=== PATIENT | female | born 1970 | race Caucasian/White ===

== ENCOUNTER 2016-11-05 18:26 | Emergency (ER) | payer OTHER ==
[~2016-11-05] VITALS: Ht 165.1 cm; Wt 89.3 kg
[~2016-11-05 18:26] MED LIST: ONDA4TAB46 PO
[2016-11-05 18:35] VITALS: TEMP 36.7; Ht 165.1 cm; Wt 89.3 kg
[2016-11-05] MEDS ORDERED: ONDANSETRON INJ 2 MG/ML 2 ML VIAL IV STA (19:36)
[2016-11-05] MEDS ORDERED: SODIUM CHLORIDE 0.9% 1000ML 2,000 ML IV STA (19:36)
[2016-11-05 20:20] LABS: BASO % 0.4 %; BASO ABS # 0.04 K/uL (0-0.2); COMPLETE YES; EOS % 4.9 %; IG% 0.2 %; LYMPH % 36.7 %; LYMPH ABS # 3.35 K/uL (1.2-3.4); MEAN CELL VOLUME 91.7 fL (80-100); MEAN CORPUSCULAR HEMOGLOBIN 30.8 pg (25-34); MEAN CORPUSCULAR HGB CONC 33.6 g/dl (32-36); MEAN PLATELET VOLUME 9.5 fL (7.4-10.4); MONO % 5.4 %; NEUT % 52.4 %; PLATELET COUNT 277 K/uL (130-400); RED BLOOD COUNT 4.58 M/uL (4.2-5.4); WHITE BLOOD COUNT 9.13 K/uL (4.8-10.8)
[2016-11-05 20:38] LABS: ALT/SGPT 65 U/L (12-78); BLOOD UREA NITROGEN 11 mg/dl (7-18); BUN/CREATININE RATIO 13.1 (10-20); CALCIUM 9.1 mg/dl (8.5-10.1); CARBON DIOXIDE 28 mmol/L (21-32); CHLORIDE 105 mmol/L (98-107); CREATININE 0.86 mg/dl (0.60-1.20); GLUCOSE 84 mg/dl (70-99); POTASSIUM 3.9 mmol/L (3.5-5.1); SODIUM 142 mmol/L (136-145)
--- NOTE | 2016-11-05 20:39 | DIAGNOSTIC IMAGING REPORT ---
CT HEAD WITHOUT CONTRAST (CT) CLINICAL HISTORY: Syncope with head trauma. Head pain. COMPARISON STUDY: 09/22/2016 TECHNIQUE: Axial CT of the brain is performed from the vertex to the skull base. IV contrast was not administered for this examination. CT DOSE: 537.48 mGy.cm FINDINGS: No intra or extra-axial mass lesions are visualized. There is no CT evidence of acute cortical infarction. There is no evidence of midline shift. There is no acute hemorrhage. No calvarial fractures are visualized. There is no evidence of pathologic ventricular dilatation. There is no evidence of acute sinusitis IMPRESSION: No acute intracranial findings Electronically signed by: Sp García M.D. 11/05/2016 8:37 PM Dictated Date/Time: 11/05/2016 8:36 PM
[2016-11-05 20:43] LABS: ALKALINE PHOSPHATASE 83 U/L (45-117); AST/SGOT 41 U/L (15-37)
--- NOTE | 2016-11-05 20:44 | EMERGENCY ROOM VISIT NOTE ---
History Report prepared by Ashok: Sammi Keys Under the Supervision of: Dr. Joseluis Cortes D.O. First contact with patient: 19:31 Chief Complaint: DIARRHEA Stated Complaint: DIARRHEA 6 DAYS, VOMITING, ABD PAIN Nursing Triage Summary: n/v/d seen here yesterday, they were going to check her for c.diff, but she was unable to give specimen. History of Present Illness The patient is a 46 year old female who presents to the Emergency Room with complaints of constant diarrhea beginning 6 days ago. The patient states that she was seen here last night for similar symptoms and got a CT scan that was normal. She notes that she was not able to give a stool sample at the time to check for C. Diff. Today she notes that she is feeling worsening pain. She is experiencing vomiting, watery diarrhea 15 times since last night, nausea, and abdominal pain. She denies any fever but notes that she is in menopause so she hasn't checked it. She reports that she passed out in the bathroom and may have hit her head once she arrived in the ED. Source of History: patient Onset: yesterday Position: other (global) Symptom Intensity: 15 episodes of diarrhea Timing: constant Associated Symptoms: + abdominal pain, + diarrhea, + nausea, + vomiting, No fevers Review of Systems See HPI for pertinent positives & negatives. A total of 10 systems reviewed and were otherwise negative. Past Medical & Surgical Medical Problems: (1) Adjustment disorder (2) Asthma (3) Chronic Cholecystitis (4) Depression (5) Diverticulosis Colon (W/O Ment Of Hemorrhage) (6) Drug overdose, intentional (7) DWAYNE (generalized anxiety disorder) (8) Gastritis (9) Gastroparesis (10) Generalized Anxiety Dis (11) History of Lyme disease (12) HLD (hyperlipidemia) (13) IBS (irritable bowel syndrome) (14) Irritable Bowel Syndrome (15) Migraine (16) Myalgia and myositis (17) Personality disorder (18) Postconcussion Syndrome (19) Posttraumatic Stress Disorder (20) Suicide attempt by drug ingestion (21) Tobacco abuse Surgical Problems: (1) H/O colonoscopy (2) H/O esophagogastroduodenoscopy (3) H/O tubal ligation (4) H/O unilateral oophorectomy (5) History of partial colectomy (6) Hx of appendectomy (7) Hx of tonsillectomy (8) S/P cholecystectomy (9) S/P MARLON (total abdominal hysterectomy) Family History Diabetes mellitus FATHER FH: heart disease MOTHER BROTHER Social History Smoking Status: Current Every Day Smoker Alcohol Use: none Drug Use: none Marital Status: Housing Status: lives with significant other Occupation Status: unemployed Current/Historical Medications Scheduled Cyclobenzaprine HCl (Cyclobenzaprine HCl), 10 MG PO HS Estradiol (Estradiol), 1 MG PO DAILY Famotidine (Famotidine), 20 MG PO BID Lactobacillus Bifidus ([id number]), 1 CAP PO BID Venlafaxine Hcl (Effexor Extended Rel), 150 MG PO DAILY Venlafaxine Hcl (Venlafaxine Extended Rel), 37.5 MG PO DAILY Scheduled PRN Albuterol Hfa (Ventolin Hfa), 2 PUFFS INH Q4H PRN for Wheezing Clonazepam (Klonopin), 1 MG PO BID PRN for Anxiety Epinephrine (Epipen 2-Cisco), 0.3 MG IM UD PRN for ALLERGIC REACTION Ondansetron Hcl (Zofran), 4 MG PO TID PRN for Nausea Allergies Coded Allergies: Iodinated Diagnostic Agents (Verified Allergy, Intermediate, HIVES, ) Tramadol (Verified Allergy, Intermediate, HIVES, 11/05/16) Penicillins (Verified Allergy, Mild, *, 11/05/16) Moxifloxacin (Verified Allergy, Unknown, UNKNOWN, 11/05/16) Sulfa Antibiotics (Verified Allergy, Unknown, unkn, 11/05/16) as a child Ketorolac Tromethamine (Verified Adverse Reaction, Intermediate, "TEARS STOMACH UP", 11/05/16) Fentanyl (Verified Adverse Reaction, Unknown, cramping and muscle spasms, 11/05/16) Prochlorperazine (Verified Adverse Reaction, Unknown, ANXIETY/JITTERY/ HYPOTENSION, 11/05/16) Physical Exam Vital Signs Date Time Temp Pulse Resp B/P Pulse Ox O2 Delivery O2 Flow Rate FiO2 11/05/16 21:53 87 18 144/98 100 11/05/16 21:12 84 21 171/110 100 Room Air 11/05/16 18:35 36.7 98 18 132/80 98 Room Air Physical Exam GENERAL: Patient is awake, alert, and in no acute distress. Patient is somewhat anxious and uncomfortable. EYES: The conjunctivae are clear. The pupils are round and reactive. EARS, NOSE, MOUTH AND THROAT: The nose is without any evidence of any deformity. Mucous membranes are moist tongue is midline NECK: The neck is nontender and supple. RESPIRATORY: Normal respiratory effort is noted there is no evidence of wheezing rhonchi or rales CARDIOVASCULAR: Regular rate and rhythm noted there no murmurs rubs or gallops normal S1 normal S2 GASTROINTESTINAL: The abdomen is mildly distended but soft. There was diffuse tenderness to palpation but no guarding or rigidity noted. MUSCULOSKELETAL/EXTREMITIES: There is no evidence of gross deformity full range of motion is noted in the hips and shoulders SKIN: There is no obvious evidence of any rash. There are no petechiae, pallor or cyanosis noted. NEUROLOGIC: Patient is awake alert and oriented x3 strength is symmetric patellar reflexes are 2+ bilaterally Medical Decision & Procedures ER Provider Diagnostic Interpretation: X ray results and stated below per my interpretation and radiology interpretation. Other radiology results per my review and radiologist interpretation: ABDOMEN 2VIEW W/PA CHEST RTN FINDINGS: The erect chest reveals no free air. There is no focal pulmonary consolidation. Erect and supine views the abdomen reveal surgical clips in the right upper quadrant consistent with a prior cholecystectomy. There are no abnormal dilated loops of large or small bowel. There are no transition zones to indicate bowel obstruction. Surgical clips are also present within the right mid abdomen. There are pelvic basin calcifications likely representing phleboliths. IMPRESSION: No evidence of bowel obstruction. No evidence of free air. Electronically signed by: Sp García M.D. 11/05/2016 8:58 PM Dictated Date/Time: 11/05/2016 8:[address] HEAD WITHOUT CONTRAST (CT) FINDINGS: No intra or extra-axial mass lesions are visualized. There is no CT evidence of acute cortical infarction. There is no evidence of midline shift. There is no acute hemorrhage. No calvarial fractures are visualized. There is no evidence of pathologic ventricular dilatation. There is no evidence of acute sinusitis IMPRESSION: No acute intracranial findings Electronically signed by: Sp García M.D. 11/05/2016 8:37 PM Dictated Date/Time: 11/05/2016 8:36 PM Laboratory Results 11/05/16 20:10 Red Blood Count 4.58, Mean Corpuscular Volume 91.7, Mean Corpuscular Hemoglobin 30.8, Mean Corpuscular Hemoglobin Concent 33.6, Mean Platelet Volume 9.5, Neutrophils (%) (Auto) 52.4, Lymphocytes (%) (Auto) 36.7, Monocytes (%) (Auto) 5.4, Eosinophils (%) (Auto) 4.9, Basophils (%) (Auto) 0.4, Neutrophils # (Auto) 4.78, Lymphocytes # (Auto) 3.35, Monocytes # (Auto) 0.49, Eosinophils # (Auto) 0.45, Basophils # (Auto) 0.04 11/05/16 20:10 Test 11/05/16 20:10 White Blood Count 9.13 K/uL (4.8-10.8) Red Blood Count 4.58 M/uL (4.2-5.4) Hemoglobin 14.1 g/dL (12.0-16.0) Hematocrit 42.0 % (37-47) Mean Corpuscular Volume 91.7 fL (80-100) Mean Corpuscular Hemoglobin 30.8 pg (25-34) Mean Corpuscular Hemoglobin Concent 33.6 g/dl (32-36) Platelet Count 277 K/uL (130-400) Mean Platelet Volume 9.5 fL (7.4-10.4) Neutrophils (%) (Auto) 52.4 % Lymphocytes (%) (Auto) 36.7 % Monocytes (%) (Auto) 5.4 % Eosinophils (%) (Auto) 4.9 % Basophils (%) (Auto) 0.4 % Neutrophils # (Auto) 4.78 K/uL (1.4-6.5) Lymphocytes # (Auto) 3.35 K/uL (1.2-3.4) Monocytes # (Auto) 0.49 K/uL (0.11-0.59) Eosinophils # (Auto) 0.45 K/uL (0-0.5) Basophils # (Auto) 0.04 K/uL (0-0.2) RDW Standard Deviation 44.2 fL (36.4-46.3) RDW Coefficient of Variation 13.3 % (11.5-14.5) Immature Granulocyte % (Auto) 0.2 % Immature Granulocyte # (Auto) 0.02 K/uL (0.00-0.02) Anion Gap 9.0 mmol/L (3-11) Est Creatinine Clear Calc Drug Dose 92.1 ml/min Estimated GFR () 95.2 Estimated GFR (Non- 82.2 BUN/Creatinine Ratio 13.1 (10-20) Calcium Level 9.1 mg/dl (8.5-10.1) Total Bilirubin 0.2 mg/dl (0.2-1) Direct Bilirubin < 0.1 mg/dl (0-0.2) Aspartate Amino Transf (AST/SGOT) 41 U/L (15-37) Alanine Aminotransferase (ALT/SGPT) 65 U/L (12-78) Alkaline Phosphatase 83 U/L (45-117) Troponin I < 0.015 ng/ml (0-0.045) Total Protein 7.8 gm/dl (6.4-8.2) Albumin 3.9 gm/dl (3.4-5.0) Lipase 160 U/L (73-393) Laboratory results per my review. Medications Administered Medications (Trade) Dose Ordered Sig/Lorna Route Start Time Stop Time Status Last Admin Dose Admin Sodium Chloride (Nss 1000ml) 2,000 ml @ 999 mls/hr Q2H1M STAT IV 11/05/16 19:36 11/05/16 21:36 DC 11/05/16 19:36 999 MLS/HR Ondansetron HCl 4 mg 4 mg NOW STAT IV 11/05/16 19:36 11/05/16 19:38 DC 11/05/16 19:36 4 MG Promethazine HCl/ Sodium Chloride (Phenergan Inj/ Nss 50ml) 51 ml @ 204 mls/hr NOW STAT IV 11/05/16 20:59 11/05/16 21:13 DC 11/05/16 21:08 204 MLS/HR Hydromorphone HCl (Dilaudid Inj) 1 mg NOW STAT IV 11/05/16 21:24 11/05/16 21:25 DC 11/05/16 21:37 1 MG Ondansetron HCl (ZOFRAN ODT 4MG Home Pack) 1 homepack UD ONCE PO 11/05/16 21:30 11/05/16 21:31 DC 11/05/16 21:40 1 HOMEPACK Oxycodone HCl (Roxicodone Immediate Rel 5MG Home Pack) 1 homepack UD ONCE PO 11/05/16 21:30 11/05/16 21:31 DC 11/05/16 21:40 1 HOMEPACK ECG Indication: other (diarrhea) Rate (beats per minute): 85 Rhythm: normal sinus Findings: no ectopy, other (no st segment abnormalities) Comparison ECG Date: 09/24/16 Change: no significant change ED Course 1930: The patient was evaluated in room B6. A complete history and physical examination were performed. 1935: Zofran Inj 4mg IV, NSS 2,000 ml @ 999 mls/hr IV. 2058: Promethazine HCl 25mg/Sodium Chloride 51ml @ 204mls/hr IV. 2123: Dilaudid Inj 1mg IV. 2129: Oxycodone HCl 1 homepack PO, Ondansetron HCl 1 homepack PO. 2155: Upon reevaluation, the patient is hemodynamically stable. I discussed the results and treatment plan with the patient. She verbalized agreement of the treatment plan. The patient was discharged home. Medical Decision Differential diagnosis: Etiologies such as appendicitis, diverticulitis, PUD, biliary pathology, UTI, pancreatitis, obstruction, mesenteric ischemia, aortic pathology, infections, inflammatory bowel disease, renal colic, as well as others were entertained. Nursing notes reviewed. The patient's previous electronic medical records reviewed. The patient is a 46-year-old female who presented to the emergency department for an evaluation of nausea vomiting and diarrhea. The patient has had ongoing symptoms for the last few days. She was seen in our facility yesterday for similar complaints and had continued symptoms. She states that she became very dizzy and passed out in the bathroom. She complained of a headache. I discussed patient's laboratory and radiographic studies with her. She was treated with IV fluids IV pain medicine and IV antiemetics. On subsequent reevaluation she was feeling much better. She was unable to provide us with a stool sample this evening. She was encouraged to follow-up with her primary care physician this week for further evaluation. She was also encouraged to continue all medications as prescribed. She was also encouraged to drink plenty clear liquids and return to the emergency department immediately if symptoms change worsen or the need arises. Impression Primary Impression: Diarrhea Additional Impressions: Nausea & vomiting Abdominal pain, bilateral lower quadrant Scribe Attestation The scribe's documentation has been prepared under my direction and personally reviewed by me in its entirety. I confirm that the note above accurately reflects all work, treatment, procedures, and medical decision making performed by me. Departure Information Dispostion Home / Self-Care Referrals No Doctor, Assigned (PCP) Forms HOME CARE DOCUMENTATION FORM, IMPORTANT VISIT INFORMATION, WORK / SCHOOL INSTRUCTIONS Patient Instructions Diarrhea, My [facility] Additional Instructions Call your primary care physician to schedule a follow-up appointment. Continue all medications as prescribed. Drink plenty clear liquids. Problem Qualifiers
[2016-11-05] MEDS ORDERED: PROMETHAZINE HCL INJ 25 MG in SODIUM CHLORIDE 0.9% 50ML 50 ML IV STA (20:59)
--- NOTE | 2016-11-05 21:00 | DIAGNOSTIC IMAGING REPORT ---
ABDOMEN 2VIEW W/PA CHEST RTN CLINICAL HISTORY: Nausea vomiting and diarrhea of 6 days duration COMPARISON STUDY: 09/24/2016, CT scan dated 11/04/2016 FINDINGS: The erect chest reveals no free air. There is no focal pulmonary consolidation. Erect and supine views the abdomen reveal surgical clips in the right upper quadrant consistent with a prior cholecystectomy. There are no abnormal dilated loops of large or small bowel. There are no transition zones to indicate bowel obstruction. Surgical clips are also present within the right mid abdomen. There are pelvic basin calcifications likely representing phleboliths. IMPRESSION: No evidence of bowel obstruction. No evidence of free air. Electronically signed by: Sp García M.D. 11/05/2016 8:58 PM Dictated Date/Time: 11/05/2016 8:57 PM
[2016-11-05] MEDS ORDERED: HYDROmorphone INJ 1 MG/ML SYR IV STA (21:24)
[2016-11-05] MEDS ORDERED: ONDANSETRON HOME PACK 4MG OD TAB PO ONE (21:30)
[2016-11-05] MEDS ORDERED: OXYCODONE IR HOME PACK PO ONE (21:30)
[2016-11-05 21:53] VITALS: BP 144/98; PULSE 87; O2SAT 100
[2017-01-26] MEDS ORDERED: VENL37.593 PO (06:58)
[2017-01-26] MEDS ORDERED: ESTRD2 PO (15:33)
[2017-01-27] MEDS ORDERED: LPT40 PO (14:19)
[2017-01-27] MEDS ORDERED: ASPEC81 PO (14:19)
== END 2016-11-05 21:53 | disposition home or self-care (01) ==
LOC: C.EDB 19:37
DX: R19.7 Diarrhea, unspecified (principal); R11.2 Nausea with vomiting, unspecified; R10.32 Left lower quadrant pain; R10.31 Right lower quadrant pain; J45.909 Unspecified asthma, uncomplicated; E78.5 Hyperlipidemia, unspecified; F17.200 Nicotine dependence, unspecified, uncomplicated; Z83.3 Family history of diabetes mellitus; Z82.49 Family history of ischemic heart disease and other diseases of the circulatory system; F32.9 Major depressive disorder, single episode, unspecified; F43.10 Post-traumatic stress disorder, unspecified

== ENCOUNTER 2016-11-11 17:27 | Emergency (ER) | payer OTHER ==
[~2016-11-11] VITALS: Ht 165.1 cm; Wt 88.7 kg
[2016-11-11 17:32] VITALS: TEMP 36.4; Ht 165.1 cm; Wt 88.7 kg
[2016-11-11] MEDS ORDERED: HYDROmorphone INJ 1 MG/ML SYR IV STA ×2 (18:03→18:07)
[2016-11-11] MEDS ORDERED: SODIUM CHLORIDE 0.9% 1000ML 1,000 ML IV STA (18:03)
[2016-11-11] MEDS ORDERED: METOCLOPRAMIDE HCL INJ 5 MG/ML 2 ML VIAL IV STA (18:03)
[2016-11-11] MEDS ORDERED: KETOROLAC TROMETHAMINE 30 MG/ML VIAL IV STA (18:03)
[2016-11-11] MEDS ORDERED: ONDANSETRON INJ 2 MG/ML 2 ML VIAL IV STA ×2 (18:03)
--- NOTE | 2016-11-11 18:14 | EMERGENCY ROOM VISIT NOTE ---
History Report prepared by Ashok: Flo Ulloa Under the Supervision of: Dr. Alex Govea M.D. First contact with patient: 17:59 Chief Complaint: GI ASSESSMENT Stated Complaint: VOMIT,DIAHRREA,EXTREME PAIN, 12 DAY (+CDIFF) Nursing Triage Summary: Pt c/o abd pain, n/v/d x12 days "I am positive for cdiff. My Dr told me to come here" History of Present Illness The patient is a 46 year old female who presents to the Emergency Room with complaints of a persistent illness that started around 12 days ago. She complains of persistent nausea, accompanied with episodes of vomiting and diarrhea. The patient also says she has excruciating abdominal pain. She notes that she tested positive for C. difficile yesterday morning. 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 She was put on Flagyl and has been on it for 1 day so far. The patient was just here last week for these symptoms. She has been taking Tylenol and Zofran, but nothing is helping. She is allergic to IV dye and Toradol. The patient has diverticular disease and had a colon resection. Source of History: patient Onset: 12 days ago Position: other (global - illness) Timing: other (persistent) Associated Symptoms: + abdominal pain, + diarrhea, + nausea, + vomiting Note: No other associated symptoms noted. Review of Systems See HPI for pertinent positives & negatives. A total of 10 systems reviewed and were otherwise negative. Past Medical & Surgical Medical Problems: (1) Adjustment disorder (2) Asthma (3) Chronic Cholecystitis (4) Depression (5) Diverticulosis Colon (W/O Ment Of Hemorrhage) (6) Drug overdose, intentional (7) DWAYNE (generalized anxiety disorder) (8) Gastritis (9) Gastroparesis (10) Generalized Anxiety Dis (11) History of Lyme disease (12) HLD (hyperlipidemia) (13) IBS (irritable bowel syndrome) (14) Irritable Bowel Syndrome (15) Migraine (16) Myalgia and myositis (17) Personality disorder (18) Postconcussion Syndrome (19) Posttraumatic Stress Disorder (20) Suicide attempt by drug ingestion (21) Tobacco abuse Surgical Problems: (1) H/O colonoscopy (2) H/O esophagogastroduodenoscopy (3) H/O tubal ligation (4) H/O unilateral oophorectomy (5) History of partial colectomy (6) Hx of appendectomy (7) Hx of tonsillectomy (8) S/P cholecystectomy (9) S/P MARLON (total abdominal hysterectomy) Family History Diabetes mellitus FATHER FH: heart disease MOTHER BROTHER Social History Smoking Status: Current Every Day Smoker Alcohol Use: none Drug Use: none Marital Status: Housing Status: lives with significant other Occupation Status: unemployed Current/Historical Medications Scheduled Cyclobenzaprine HCl (Cyclobenzaprine HCl), 10 MG PO HS Estradiol (Estradiol), 1 MG PO DAILY Famotidine (Famotidine), 20 MG PO BID Lactobacillus Bifidus ([id number]), 1 CAP PO DAILY Metronidazole (Flagyl), 500 MG PO TID Venlafaxine Hcl (Effexor Extended Rel), 150 MG PO DAILY Venlafaxine Hcl (Venlafaxine Extended Rel), 37.5 MG PO DAILY Scheduled PRN Albuterol Hfa (Ventolin Hfa), 2 PUFFS INH Q4H PRN for Wheezing Clonazepam (Klonopin), 1 MG PO BID PRN for Anxiety Epinephrine (Epipen 2-Cisco), 0.3 MG IM UD PRN for ALLERGIC REACTION Ondansetron (Ondansetron HCl), 4 MG PO TID PRN for Nausea Promethazine Hcl (Phenergan Suppository), 25 MG OH Q6H PRN for Nausea Promethazine Hcl (Phenergan), 25 MG PO Q6 hours PRN for nausea Allergies Coded Allergies: Iodinated Diagnostic Agents (Verified Allergy, Intermediate, HIVES, ) Tramadol (Verified Allergy, Intermediate, HIVES, 11/05/16) Penicillins (Verified Allergy, Mild, *, 11/05/16) Moxifloxacin (Verified Allergy, Unknown, UNKNOWN, 11/05/16) Sulfa Antibiotics (Verified Allergy, Unknown, unkn, 11/05/16) as a child Ketorolac Tromethamine (Verified Adverse Reaction, Intermediate, "TEARS STOMACH UP", 11/05/16) Fentanyl (Verified Adverse Reaction, Unknown, cramping and muscle spasms, 11/05/16) Prochlorperazine (Verified Adverse Reaction, Unknown, ANXIETY/JITTERY/ HYPOTENSION, 11/05/16) Physical Exam Vital Signs Date Time Temp Pulse Resp B/P Pulse Ox O2 Delivery O2 Flow Rate FiO2 11/11/16 21:38 95 18 148/96 96 11/11/16 20:35 91 18 147/100 98 Room Air 11/11/16 19:05 82 18 152/99 100 Room Air 11/11/16 17:32 36.4 109 20 140/105 98 Room Air Physical Exam CONSTITUTIONAL: Moderate painful nauseous distress. HEENT: No icterus, moist mucous membranes NECK: No meningismus, trachea is midline. CARDIOVASCULAR: Regular rate, normal perfusion RESPIRATORY: Unlabored breathing. Clear to auscultation. GASTROINTESTINAL: Moderate diffuse abdominal tenderness. GENITOURINARY: No flank tenderness MUSCULOSKELETAL: Full range of motion NEUROLOGIC: No acute gross focal deficits. PSYCHIATRIC: Normal affect SKIN: Normal for ethnicity. Medical Decision & Procedures ER Provider Diagnostic Interpretation: CT results as stated below per my review and radiologist interpretation. CT SCAN OF THE ABDOMEN AND PELVIS WITHOUT CONTRAST CLINICAL HISTORY: Abdominal pain, history of C. difficile. COMPARISON STUDY: 11/04/2016 TECHNIQUE: CT scan of the abdomen and pelvis was performed from the lung bases to the proximal femurs. Images are reviewed in the axial, sagittal, and coronal planes. IV contrast was not administered for this examination. CT DOSE: 595.96 mGy.cm FINDINGS: Lower chest: There are minor right middle lobe atelectatic changes. Liver: The unenhanced liver is normal in size, contour, and attenuation. There is no intrahepatic biliary ductal dilatation. Gallbladder: Surgically absent Spleen: Normal in size and attenuation. Pancreas: Unremarkable. Adrenal glands: Unremarkable. Kidneys: There are punctate nonobstructing renal calculi. There is no hydronephrosis. No ureteral or bladder calculi are visualized. Bowel: There are no transition zones indicate bowel obstruction. By history the appendix is absent. There is no acute diverticulitis. There are postsurgical changes present within the sigmoid. There is no acute diverticulitis. There is no pathologic bowel wall thickening. Peritoneum: There is no intraperitoneal free air or abdominal ascites. Vasculature: The abdominal aorta is normal in course and caliber. Adenopathy: None. Pelvic viscera: The uterus appears surgically absent Skeletal structures: No destructive osseous lesions are seen. IMPRESSION: 1. No acute intra-abdominal or pelvic findings 2. Punctate bilateral renal calculi. 3. No ureteral or bladder calculi identified 4. No acute inflammatory changes. No evidence of pathologic bowel wall thickening. 5. Postsurgical changes within the sigmoid colon Electronically signed by: Sp García M.D. 11/11/2016 8:48 PM Dictated Date/Time: 11/11/2016 8:44 PM Laboratory Results 11/11/16 18:20 Red Blood Count 4.64, Mean Corpuscular Volume 90.1, Mean Corpuscular Hemoglobin 30.2, Mean Corpuscular Hemoglobin Concent 33.5, Mean Platelet Volume 9.5, Neutrophils (%) (Auto) 51.2, Lymphocytes (%) (Auto) 36.5, Monocytes (%) (Auto) 6.4, Eosinophils (%) (Auto) 5.3, Basophils (%) (Auto) 0.4, Neutrophils # (Auto) 5.12, Lymphocytes # (Auto) 3.65, Monocytes # (Auto) 0.64, Eosinophils # (Auto) 0.53, Basophils # (Auto) 0.04 11/11/16 18:20 Test 11/11/16 18:10 11/11/16 18:20 Urine Color YELLOW Urine Appearance CLOUDY (CLEAR) Urine pH 5.5 (4.5-7.5) Urine Specific Girdler 1.000 (1.000-1.030) Urine Protein NEG (NEG) Urine Glucose (UA) NEG (NEG) Urine Ketones NEG (NEG) Urine Occult Blood NEG (NEG) Urine Nitrite NEG (NEG) Urine Bilirubin NEG (NEG) Urine Urobilinogen NEG (NEG) Urine Leukocyte Esterase SMALL (NEG) Urine WBC (Auto) 10-30 /hpf (0-5) Urine RBC (Auto) 0-4 /hpf (0-4) Urine Hyaline Casts (Auto) 1-5 /lpf (0-5) Urine Epithelial Cells (Auto) >30 /lpf (0-5) Urine Bacteria (Auto) 2+ (NEG) Urine Opiates Screen NEG (NEG) Urine Methadone, Qualitative NEG (NEG) Urine Barbiturates NEG (NEG) Urine Phencyclidine (PCP) Level NEG (NEG) Ur Amphetamine/Methamphetamine NEG (NEG) MDMA (Ecstasy) Screen NEG (NEG) Urine Benzodiazepines Screen NEG (NEG) Urine Cocaine Metabolite NEG (NEG) Urine Marijuana (THC) NEG (NEG) White Blood Count 10.00 K/uL (4.8-10.8) Red Blood Count 4.64 M/uL (4.2-5.4) Hemoglobin 14.0 g/dL (12.0-16.0) Hematocrit 41.8 % (37-47) Mean Corpuscular Volume 90.1 fL (80-100) Mean Corpuscular Hemoglobin 30.2 pg (25-34) Mean Corpuscular Hemoglobin Concent 33.5 g/dl (32-36) Platelet Count 274 K/uL (130-400) Mean Platelet Volume 9.5 fL (7.4-10.4) Neutrophils (%) (Auto) 51.2 % Lymphocytes (%) (Auto) 36.5 % Monocytes (%) (Auto) 6.4 % Eosinophils (%) (Auto) 5.3 % Basophils (%) (Auto) 0.4 % Neutrophils # (Auto) 5.12 K/uL (1.4-6.5) Lymphocytes # (Auto) 3.65 K/uL (1.2-3.4) Monocytes # (Auto) 0.64 K/uL (0.11-0.59) Eosinophils # (Auto) 0.53 K/uL (0-0.5) Basophils # (Auto) 0.04 K/uL (0-0.2) RDW Standard Deviation 43.5 fL (36.4-46.3) RDW Coefficient of Variation 13.2 % (11.5-14.5) Immature Granulocyte % (Auto) 0.2 % Immature Granulocyte # (Auto) 0.02 K/uL (0.00-0.02) Anion Gap 9.0 mmol/L (3-11) Est Creatinine Clear Calc Drug Dose 95.1 ml/min Estimated GFR () 99.4 Estimated GFR (Non- 85.8 BUN/Creatinine Ratio 6.9 (10-20) Calcium Level 9.1 mg/dl (8.5-10.1) Total Bilirubin 0.1 mg/dl (0.2-1) Direct Bilirubin < 0.1 mg/dl (0-0.2) Aspartate Amino Transf (AST/SGOT) 18 U/L (15-37) Alanine Aminotransferase (ALT/SGPT) 34 U/L (12-78) Alkaline Phosphatase 81 U/L (45-117) Total Protein 7.5 gm/dl (6.4-8.2) Albumin 3.8 gm/dl (3.4-5.0) Lipase 185 U/L (73-393) Labs reviewed by ED physician. Medications Administered Medications (Trade) Dose Ordered Sig/Lorna Route Start Time Stop Time Status Last Admin Dose Admin Ondansetron HCl 4 mg 4 mg NOW STAT IV 11/11/16 18:03 11/11/16 18:06 DC 11/11/16 18:32 4 MG Sodium Chloride (Nss 1000ml) 1,000 ml @ 0 mls/hr Q0M STAT IV 11/11/16 18:03 11/11/16 18:06 DC 11/11/16 18:32 999 MLS/HR Hydromorphone HCl (Dilaudid Inj) 1 mg PRN STAT IV 11/11/16 18:03 11/11/16 18:06 DC 11/11/16 18:33 1 MG Metoclopramide HCl (Reglan Inj) 10 mg NOW STAT IV 11/11/16 18:03 11/11/16 18:06 DC 11/11/16 18:33 10 MG Ondansetron HCl (Zofran Inj) 4 mg PRN STAT IV 11/11/16 18:03 11/11/16 18:06 DC 11/11/16 20:50 4 MG Hydromorphone HCl (Dilaudid Inj) 1 mg PRN STAT IV 11/11/16 18:07 11/11/16 18:09 DC 11/11/16 19:36 1 MG Promethazine HCl (Phenergan 25MG Home Pack) 1 homepack UD ONCE PO 11/11/16 21:30 11/11/16 21:31 DC 11/11/16 21:35 1 HOMEPACK ED Course 1800: Past medical records reviewed. The patient was evaluated in room B2. A complete history and physical examination was performed. 1802: Ordered Zofran Inj 4 mg IV PRN, Reglan Inj 10 mg IV, Dilaudid Inj 1 mg IV PRN, NSS 1000 ml @ 0 mls/hr Wide Open IV, Zofran Inj 4 mg IV. 2125: I reevaluated the patient and she is resting comfortably. The patient verbally expressed agreement and understanding of the treatment plan. The patient will be discharged. Medical Decision Differential diagnoses include: complications of C difficile, viral syndrome, cholecystitis. 46-year-old presented to the emergency room for vomiting and diarrhea with crampy abdominal pain over the last day or so. She is noted to have a history of diarrhea and similar complaints over the last month or 2 with positive C. difficile testing as recently as yesterday. She is on Flagyl presently. Abdomen mildly diffusely tender. Despite recent episodes of diarrhea she was unable to produce a stool sample here in the emergency department for additional C. difficile testing. CT examination labs otherwise unremarkable. Phenergan suppositories and tablets written at patient request and she understands to follow-up with infectious disease for further evaluation and discussion of Flagyl therapy duration. Impression Primary Impression: Abdominal pain Additional Impression: Diarrhea Scribe Attestation The scribe's documentation has been prepared under my direction and personally reviewed by me in its entirety. I confirm that the note above accurately reflects all work, treatment, procedures, and medical decision making performed by me. Departure Information Dispostion Home / Self-Care Prescriptions Promethazine Hcl (PHENERGAN) 25 Mg/Ml Inj 25 MG PO Q6 hours Y for nausea, #20 TABS Prov: Alex Govea MD 11/11/16 Promethazine Hcl (PHENERGAN SUPPOSITORY) 25 Mg Supp 25 MG OH Q6H Y for Nausea, #20 SUPP Prov: Alex Govea MD 11/11/16 Referrals No Doctor, Assigned (PCP) Holland Naik M.D. Forms HOME CARE DOCUMENTATION FORM, IMPORTANT VISIT INFORMATION Patient Instructions Abdominal Pain - [facility], [facility] Problem Qualifiers
[2016-11-11 18:30] LABS: BASO % 0.4 %; BASO ABS # 0.04 K/uL (0-0.2); COMPLETE YES; EOS % 5.3 %; HEMATOCRIT 41.8 % (37-47); IG% 0.2 %; LYMPH % 36.5 %; LYMPH ABS # 3.65 K/uL (1.2-3.4); MEAN CELL VOLUME 90.1 fL (80-100); MEAN CORPUSCULAR HEMOGLOBIN 30.2 pg (25-34); MEAN CORPUSCULAR HGB CONC 33.5 g/dl (32-36); MEAN PLATELET VOLUME 9.5 fL (7.4-10.4); MONO % 6.4 %; NEUT % 51.2 %; PLATELET COUNT 274 K/uL (130-400); RED BLOOD COUNT 4.64 M/uL (4.2-5.4)
[2016-11-11] MEDS ORDERED: METR-163 PO (18:34)
[2016-11-11 18:56] LABS: URINE APPEARANCE CLOUDY (CLEAR); URINE BILIRUBIN NEG (NEG); URINE COLOR YELLOW; URINE EPITHELIAL CELL AUTO >30 /lpf (0-5); URINE NITRITE NEG (NEG); URINE PH 5.5 (4.5-7.5); UROBILINOGEN NEG (NEG); ZZUR CULT IF INDIC CLEAN CATCH YES
[2016-11-11 18:57] LABS: MANUAL MICROSCOPIC REQUIRED? NO; REVIEW REQ? NO
[2016-11-11 19:00] LABS: ALT/SGPT 34 U/L (12-78); BLOOD UREA NITROGEN 6 mg/dl (7-18); BUN/CREATININE RATIO 6.9 (10-20); CALCIUM 9.1 mg/dl (8.5-10.1); CARBON DIOXIDE 26 mmol/L (21-32); CHLORIDE 106 mmol/L (98-107); CREATININE 0.83 mg/dl (0.60-1.20); GLUCOSE 84 mg/dl (70-99); POTASSIUM 3.8 mmol/L (3.5-5.1); SODIUM 141 mmol/L (136-145)
[2016-11-11 19:03] LABS: ALKALINE PHOSPHATASE 81 U/L (45-117); AST/SGOT 18 U/L (15-37)
[2016-11-11 19:25] LABS: BENZODIAZEPINE, URINE NEG (NEG); COCAINE,URINE NEG (NEG); PHENCYCLIDINE, URINE NEG (NEG)
[2016-11-11] MEDS ORDERED: LACTCAP PO (20:09)
[2016-11-11] MEDS ORDERED: ONDANSETRON INJ 2 MG/ML 2 ML VIAL ONE (20:46)
--- NOTE | 2016-11-11 20:50 | DIAGNOSTIC IMAGING REPORT ---
CT SCAN OF THE ABDOMEN AND PELVIS WITHOUT CONTRAST CLINICAL HISTORY: Abdominal pain, history of C. difficile. COMPARISON STUDY: 11/04/2016 TECHNIQUE: CT scan of the abdomen and pelvis was performed from the lung bases to the proximal femurs. Images are reviewed in the axial, sagittal, and coronal planes. IV contrast was not administered for this examination. CT DOSE: 595.96 mGy.cm FINDINGS: Lower chest: There are minor right middle lobe atelectatic changes. Liver: The unenhanced liver is normal in size, contour, and attenuation. There is no intrahepatic biliary ductal dilatation. Gallbladder: Surgically absent Spleen: Normal in size and attenuation. Pancreas: Unremarkable. Adrenal glands: Unremarkable. Kidneys: There are punctate nonobstructing renal calculi. There is no hydronephrosis. No ureteral or bladder calculi are visualized. Bowel: There are no transition zones indicate bowel obstruction. By history the appendix is absent. There is no acute diverticulitis. There are postsurgical changes present within the sigmoid. There is no acute diverticulitis. There is no pathologic bowel wall thickening. Peritoneum: There is no intraperitoneal free air or abdominal ascites. Vasculature: The abdominal aorta is normal in course and caliber. Adenopathy: None. Pelvic viscera: The uterus appears surgically absent Skeletal structures: No destructive osseous lesions are seen. IMPRESSION: 1. No acute intra-abdominal or pelvic findings 2. Punctate bilateral renal calculi. 3. No ureteral or bladder calculi identified 4. No acute inflammatory changes. No evidence of pathologic bowel wall thickening. 5. Postsurgical changes within the sigmoid colon Electronically signed by: Sp García M.D. 11/11/2016 8:48 PM Dictated Date/Time: 11/11/2016 8:44 PM
[2016-11-11] MEDS ORDERED: PROM25SU28 PR (21:23)
[2016-11-11] MEDS ORDERED: PROM25IN13 PO (21:24)
[2016-11-11] MEDS ORDERED: PHENERGAN 25MG HOMEPACK PO ONE (21:30)
[2016-11-11 21:38] VITALS: BP 148/96; PULSE 95; O2SAT 96
[2017-01-26] MEDS ORDERED: VENL37.593 PO (06:58)
[2017-01-26] MEDS ORDERED: ESTRD2 PO (15:33)
[2017-01-27] MEDS ORDERED: LPT40 PO (14:19)
[2017-01-27] MEDS ORDERED: ASPEC81 PO (14:19)
== END 2016-11-11 21:38 | disposition home or self-care (01) ==
LOC: C.EDB 17:29
DX: R10.9 Unspecified abdominal pain (principal); R19.7 Diarrhea, unspecified; J45.909 Unspecified asthma, uncomplicated; F17.200 Nicotine dependence, unspecified, uncomplicated; Z98.890 Other specified postprocedural states; Z90.89 Acquired absence of other organs; Z90.49 Acquired absence of other specified parts of digestive tract; Z83.3 Family history of diabetes mellitus; Z82.49 Family history of ischemic heart disease and other diseases of the circulatory system; Z88.0 Allergy status to penicillin; Z88.2 Allergy status to sulfonamides

== ENCOUNTER 2016-12-01 14:41 | Emergency (ER) | payer OTHER ==
[~2016-12-01] VITALS: Ht 165.1 cm; Wt 90.8 kg
[~2016-12-01 14:41] MED LIST changes: +LACTCAP PO; +METR-163 PO; -ONDA4TAB46 PO; +PROM25IN13 PO; +PROM25SU28 PR
[2016-12-01 14:54] VITALS: TEMP 37; Ht 165.1 cm; Wt 90.8 kg
[2016-12-01] MEDS ORDERED: SODIUM CHLORIDE 0.9% 1000ML 1,000 ML IV STA (15:39)
[2016-12-01] MEDS ORDERED: DICYCLOMINE HCL 10 MG/ML 2 ML AMP IM STA (15:39)
[2016-12-01] MEDS ORDERED: PROMETHAZINE HCL INJ 25 MG in SODIUM CHLORIDE 0.9% 50ML 50 ML IV STA (15:39)
[2016-12-01] MEDS ORDERED: DiphenhydrAMINE HCL 50 MG/ML VIAL IV STA (15:39)
--- NOTE | 2016-12-01 15:40 | EMERGENCY ROOM VISIT NOTE ---
History Report prepared by Ashok: Kelly Cornejo Under the Supervision of: Dr. Guy Vargas M.D. First contact with patient: 15:19 Chief Complaint: ABDOMINAL PAIN Stated Complaint: SEVERE ABD. PAIN, VOMITING, DIARRHEA History of Present Illness The patient is a 46 year old female who presents to the Emergency Room with complaints of persistent lower abdominal pain over the past 3 days. She also complains of lightheadedness, headache, vomiting, and diarrhea. She notes that she has an episode of diarrhea every couple of hours. Her headache is not the worst headache of her life. She has had similar headaches before. She does note some neck pain which she does not usually get with a headache. She has colon issues and has a history of a colon resection. She follows up with a learning facilitator in [place] but has not seen them in a while at this point. She has a history of multiple instances of C. diff and has followed with Dr. Lester of Infectious Disease. The patient was on Vancomycin in September and was started on Flagyl last month. She finished the Flagyl in the past week or two. The patient states that her current symptoms feel similar to previous episodes of C. diff. The patient was admitted to the hospital in September and fired the hospitalist seeing her because she was not given narcotics. She has had multiple drug overdoses in the past. Her family is concerned that the patient is exhibiting drug seeking behavior. 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 Source of History: patient Onset: 3 days ago Position: abdomen (lower) Timing: other (persistent) Associated Symptoms: + diarrhea, + headache, + neck pain, + vomiting Note: Other symptoms: lightheadedness Review of Systems See HPI for pertinent positives & negatives. A total of 10 systems reviewed and were otherwise negative. Past Medical & Surgical Medical Problems: (1) Adjustment disorder (2) Asthma (3) Chronic Cholecystitis (4) Depression (5) Diverticulosis Colon (W/O Ment Of Hemorrhage) (6) Drug overdose, intentional (7) DWAYNE (generalized anxiety disorder) (8) Gastritis (9) Gastroparesis (10) Generalized Anxiety Dis (11) History of Lyme disease (12) HLD (hyperlipidemia) (13) IBS (irritable bowel syndrome) (14) Irritable Bowel Syndrome (15) Migraine (16) Myalgia and myositis (17) Personality disorder (18) Postconcussion Syndrome (19) Posttraumatic Stress Disorder (20) Suicide attempt by drug ingestion (21) Tobacco abuse Surgical Problems: (1) H/O colonoscopy (2) H/O esophagogastroduodenoscopy (3) H/O tubal ligation (4) H/O unilateral oophorectomy (5) History of partial colectomy (6) Hx of appendectomy (7) Hx of tonsillectomy (8) S/P cholecystectomy (9) S/P MARLON (total abdominal hysterectomy) Family History Diabetes mellitus FATHER FH: heart disease MOTHER BROTHER Social History Smoking Status: Current Every Day Smoker Alcohol Use: none Drug Use: none Marital Status: Housing Status: lives with significant other Occupation Status: unemployed Current/Historical Medications Scheduled Cyclobenzaprine HCl (Cyclobenzaprine HCl), 10 MG PO HS Estradiol (Estradiol), 1 MG PO DAILY Famotidine (Famotidine), 20 MG PO BID Lactobacillus Bifidus ([id number]), 1 CAP PO DAILY Metronidazole (Flagyl), 500 MG PO TID Venlafaxine Hcl (Effexor Extended Rel), 150 MG PO DAILY Venlafaxine Hcl (Venlafaxine Extended Rel), 37.5 MG PO DAILY Scheduled PRN Albuterol Hfa (Ventolin Hfa), 2 PUFFS INH Q4H PRN for Wheezing Clonazepam (Klonopin), 1 MG PO BID PRN for Anxiety Epinephrine (Epipen 2-Cisco), 0.3 MG IM UD PRN for ALLERGIC REACTION Ondansetron (Ondansetron HCl), 4 MG PO TID PRN for Nausea Promethazine Hcl (Phenergan Suppository), 25 MG MT Q6H PRN for Nausea Promethazine Hcl (Phenergan), 25 MG PO Q6 hours PRN for nausea Promethazine Hcl (Phenergan Suppository), 25 MG MT Q6H PRN for Nausea Allergies Coded Allergies: Iodinated Diagnostic Agents (Verified Allergy, Intermediate, HIVES, 12/01/16 ) Tramadol (Verified Allergy, Intermediate, HIVES, 12/01/16) Penicillins (Verified Allergy, Mild, *, 12/01/16) Moxifloxacin (Verified Allergy, Unknown, UNKNOWN, 12/01/16) Sulfa Antibiotics (Verified Allergy, Unknown, unkn, 12/01/16) as a child Ketorolac Tromethamine (Verified Adverse Reaction, Intermediate, "TEARS STOMACH UP", 12/01/16) Fentanyl (Verified Adverse Reaction, Unknown, cramping and muscle spasms, 12/01/16) Prochlorperazine (Verified Adverse Reaction, Unknown, ANXIETY/JITTERY/ HYPOTENSION, 12/01/16) Physical Exam Vital Signs Date Time Temp Pulse Resp B/P Pulse Ox O2 Delivery O2 Flow Rate FiO2 12/01/16 18:30 87 16 148/86 93 12/01/16 17:47 82 16 129/88 98 Room Air 12/01/16 16:07 85 12/01/16 15:59 92 15 143/104 98 Room Air 12/01/16 14:54 37.0 108 20 216/173 99 Room Air Physical Exam GENERAL: Patient is a healthy-appearing well-nourished 46 year old female HEAD: Normocephalic atraumatic EYES: Ocular movements intact pupils equal and react to light OROPHARYNX mucous membranes are moist no exudates present no erythema or edema present NECK: Supple no nuchal rigidity CHEST: Good equal expansion LUNGS: Clear and equal to auscultation CARDIAC: Normal S1 and S2 ABDOMEN: Soft nontender no guarding BACK: No CVA tenderness EXTREMITIES: No pain upon palpation normal muscle strength in all groups no clubbing cyanosis or edema NEURO: Patient is following commands is answering questions appropriately. Alert and oriented x3 Cranial Nerves 2-12 grossly intact Medical Decision & Procedures ER Provider Diagnostic Interpretation: X-ray results as stated below per interpretation by me and the radiologist: PA CHEST WITH ABDOMINAL SERIES CLINICAL HISTORY: Generalized abdominal pain. FINDINGS: A PA chest radiograph is compared to study dated 11/05/2016. The cardiomediastinal silhouette is unremarkable. The lungs and pleural spaces are clear. No pneumothorax is seen. The bony thorax is grossly intact. Supine and erect abdominal radiographs are correlated with prior abdominal CT scans, most recently dated 11/11/2016. There is a nonobstructed abdominal bowel gas pattern. No evidence of intraperitoneal free air is seen. There is mild to moderate colonic fecal retention. Cholecystectomy clips are identified in the right upper quadrant. Surgical clips are present in the right lower quadrant and suture material is seen in the pelvis. Calcified phleboliths are again seen in the pelvis. The lumbosacral spine and bony pelvis appear intact. IMPRESSION: 1. No active disease in the chest. 2. Nonobstructed abdominal bowel gas pattern. Electronically signed by: Conrad Carbajal M.D. 12/01/2016 4:41 PM Dictated Date/Time: 12/01/2016 4:39 PM Laboratory Results 12/01/16 16:00 Red Blood Count 4.84, Mean Corpuscular Volume 90.7, Mean Corpuscular Hemoglobin 30.4, Mean Corpuscular Hemoglobin Concent 33.5, Mean Platelet Volume 9.6, Neutrophils (%) (Auto) 49.0, Lymphocytes (%) (Auto) 37.2, Monocytes (%) (Auto) 5.7, Eosinophils (%) (Auto) 7.2, Basophils (%) (Auto) 0.6, Neutrophils # (Auto) 3.87, Lymphocytes # (Auto) 2.94, Monocytes # (Auto) 0.45, Eosinophils # (Auto) 0.57, Basophils # (Auto) 0.05 12/01/16 16:00 Test 12/01/16 15:50 12/01/16 16:00 Urine Color YELLOW Urine Appearance CLEAR (CLEAR) Urine pH 6.0 (4.5-7.5) Urine Specific [place] 1.007 (1.000-1.030) Urine Protein NEG (NEG) Urine Glucose (UA) NEG (NEG) Urine Ketones NEG (NEG) Urine Occult Blood NEG (NEG) Urine Nitrite NEG (NEG) Urine Bilirubin NEG (NEG) Urine Urobilinogen NEG (NEG) Urine Leukocyte Esterase NEG (NEG) Urine Opiates Screen NEG (NEG) Urine Methadone, Qualitative NEG (NEG) Urine Barbiturates NEG (NEG) Urine Phencyclidine (PCP) Level NEG (NEG) Ur Amphetamine/Methamphetamine NEG (NEG) MDMA (Ecstasy) Screen NEG (NEG) Urine Benzodiazepines Screen NEG (NEG) Urine Cocaine Metabolite NEG (NEG) Urine Marijuana (THC) NEG (NEG) White Blood Count 7.90 K/uL (4.8-10.8) Red Blood Count 4.84 M/uL (4.2-5.4) Hemoglobin 14.7 g/dL (12.0-16.0) Hematocrit 43.9 % (37-47) Mean Corpuscular Volume 90.7 fL (80-100) Mean Corpuscular Hemoglobin 30.4 pg (25-34) Mean Corpuscular Hemoglobin Concent 33.5 g/dl (32-36) Platelet Count 270 K/uL (130-400) Mean Platelet Volume 9.6 fL (7.4-10.4) Neutrophils (%) (Auto) 49.0 % Lymphocytes (%) (Auto) 37.2 % Monocytes (%) (Auto) 5.7 % Eosinophils (%) (Auto) 7.2 % Basophils (%) (Auto) 0.6 % Neutrophils # (Auto) 3.87 K/uL (1.4-6.5) Lymphocytes # (Auto) 2.94 K/uL (1.2-3.4) Monocytes # (Auto) 0.45 K/uL (0.11-0.59) Eosinophils # (Auto) 0.57 K/uL (0-0.5) Basophils # (Auto) 0.05 K/uL (0-0.2) RDW Standard Deviation 43.5 fL (36.4-46.3) RDW Coefficient of Variation 13.1 % (11.5-14.5) Immature Granulocyte % (Auto) 0.3 % Immature Granulocyte # (Auto) 0.02 K/uL (0.00-0.02) Anion Gap 8.0 mmol/L (3-11) Est Creatinine Clear Calc Drug Dose 92.9 ml/min Estimated GFR () 95.2 Estimated GFR (Non- 82.2 BUN/Creatinine Ratio 12.4 (10-20) Calcium Level 9.3 mg/dl (8.5-10.1) Total Bilirubin 0.2 mg/dl (0.2-1) Direct Bilirubin < 0.1 mg/dl (0-0.2) Aspartate Amino Transf (AST/SGOT) 18 U/L (15-37) Alanine Aminotransferase (ALT/SGPT) 33 U/L (12-78) Alkaline Phosphatase 78 U/L (45-117) Total Protein 8.4 gm/dl (6.4-8.2) Albumin 4.0 gm/dl (3.4-5.0) Lipase 149 U/L (73-393) Labs reviewed by ED physician. Medications Administered Medications (Trade) Dose Ordered Sig/Lorna Route Start Time Stop Time Status Last Admin Dose Admin Sodium Chloride 1,000 ml @ 999 mls/hr Q1H1M STAT IV 12/01/16 15:39 12/01/16 16:39 DC 12/01/16 16:11 999 MLS/HR Promethazine HCl/ Sodium Chloride (Phenergan Inj/ Nss 50ml) 51 ml @ 204 mls/hr NOW STAT IV 12/01/16 15:39 12/01/16 15:53 DC 12/01/16 16:10 204 MLS/HR Dicyclomine HCl (Bentyl Inj) 20 mg NOW STAT IM 12/01/16 15:39 12/01/16 15:42 DC 12/01/16 16:10 20 MG Diphenhydramine HCl (Benadryl Inj) 50 mg NOW STAT IV 12/01/16 15:39 12/01/16 15:42 DC 12/01/16 16:10 50 MG Ondansetron HCl (Zofran Inj) 4 mg NOW STAT IV 12/01/16 17:01 12/01/16 17:03 DC 12/01/16 17:42 4 MG Famotidine (Pepcid Tab) 20 mg NOW STAT PO 12/01/16 17:01 12/01/16 17:03 DC 12/01/16 17:42 20 MG Sucralfate (Carafate Tab) 1 gm NOW STAT PO 12/01/16 17:01 12/01/16 17:04 DC 12/01/16 18:01 1 GM Lidocaine HCl (Viscous Lidocaine 2% Soln) 20 ml STK-MED ONCE .ROUTE 12/01/16 17:32 12/01/16 17:34 DC 12/01/16 17:40 20 ML Al Hydroxide/Mg Hydroxide (Maalox Susp) 30 ml STK-MED ONCE .ROUTE 12/01/16 17:32 12/01/16 17:34 DC 12/01/16 17:39 30 ML ED Course 1532: Past medical records reviewed. The patient was evaluated in room C5. A complete history and physical examination was performed. 1539: Ordered Benadryl Inj 50 mg IV, Bentyl Inj 20 mg IM, Promethazine HCl 25 mg /NSS 51 ml @ 204 mls/hr IV, NSS 1000 ml @ 999 mls/hr IV. 1701: Ordered Sucralfate 1 gm PO, Pepcid Tab 20 mg PO, GI Cocktail 24 ml PO. 1720: I performed a repeat examination of the patients abdomen. Exam was normal. 1800: Upon reexamination the patient is sleeping comfortably in bed. She could not produce a stool sample while in the ED. Another repeat abdominal examination was normal. I discussed results and treatment plan with the patient. She verbalizes agreement and understanding. The patient is ready for discharge. Medical Decision Differential diagnosis: Etiologies such as appendicitis, diverticulitis, PUD, biliary pathology, UTI, pancreatitis, obstruction, mesenteric ischemia, aortic pathology, infections, inflammatory bowel disease, renal colic, as well as others were entertained. This is a 46-year-old female who presents emergency department complaining of diarrhea as well as suprapubic abdominal pain. The patient was able to provide a urine and this is not show any evidence of infection. A quick review of the chart shows that the patient was recently admitted here in September for an overdose. At that time the patient fired her hospitalist as it was thought that she was opiate seeking. In addition the patient states she fired her pain management doctor in April. I will note that the patient has been here multiple times this month. She is also had multiple CAT scans. Based on this as well as the multiple serial abdominal examinations were performed on the patient in the emergency department and was felt that due to radiation exposure a CAT scan is not going to tell us much more about the patient's condition. In addition the patient has a normal white blood cell count, renal profile liver profile as well as lipase. I feel based on the fact that the this patient has had multiple drug overdoses that she should be placed on our no narcotics list.. I stressed to the patient that she needs to be followed up with infectious disease for this recurrent diarrhea. I will also note that the patient was observed in the emergency department for a total of 5 hours and at no point during a 5 hours was the patient able to provide a stool sample. I believe it is dangerous to give this patient narcotics as this may exacerbate C. difficile if this is indeed what the patient has. For this reason the patient was given normal saline bolus, Phenergan, Bentyl. Repeat examination revealed improvement patient's symptoms. The patient was also given a GI cocktail, Pepcid and Carafate. The patient was pain-free at the time of discharge. The patient was written a prescription to provide a stool sample. In addition I also recommended that the patient follow-up with Dr. Lester's office as well as pain management. [place] Drug Monitoring Program Search Results: patient reviewed within database, see additional documentation Drug Monitoring Findings: 60 clonazepam filled in the past month Impression Primary Impression: Acute gastroenteritis Scribe Attestation The scribe's documentation has been prepared under my direction and personally reviewed by me in its entirety. I confirm that the note above accurately reflects all work, treatment, procedures, and medical decision making performed by me. Departure Information Dispostion Home / Self-Care Prescriptions Promethazine Hcl (PHENERGAN SUPPOSITORY) 25 Mg Supp 25 MG MT Q6H Y for Nausea, #10 SUPP Prov: Guy Vargas MD 12/01/16 Referrals No Doctor, Assigned (PCP) Patient Instructions ED Gastroenteritis Report Pend, My [facility] Additional Instructions Need follow up with Dr Lester and Dr Okeefe's office Culture results are usually available in approx 48 hours You have been examined and treated today on an emergency basis only. This is not a substitute for, or an effort to provide, complete comprehensive medical care. It is impossible to recognize and treat all injuries or illnesses in a single emergency department visit. It is therefore important that you follow up closely with Dr Dawson. Call as soon as possible for an appointment. Thank you for your time and consideration. I look forward to speaking with you again soon. Please don't hesitate to call us if you have any questions.
[2016-12-01 16:17] LABS: URINE APPEARANCE CLEAR (CLEAR); URINE BILIRUBIN NEG (NEG); URINE COLOR YELLOW; URINE NITRITE NEG (NEG); URINE SPECIFIC GRAVITY 1.007 (1.000-1.030); UROBILINOGEN NEG (NEG)
[2016-12-01 16:18] LABS: BASO % 0.6 %; BASO ABS # 0.05 K/uL (0-0.2); COMPLETE YES; EOS % 7.2 %; HEMATOCRIT 43.9 % (37-47); IG% 0.3 %; LYMPH % 37.2 %; LYMPH ABS # 2.94 K/uL (1.2-3.4); MEAN CELL VOLUME 90.7 fL (80-100); MEAN CORPUSCULAR HEMOGLOBIN 30.4 pg (25-34); MEAN CORPUSCULAR HGB CONC 33.5 g/dl (32-36); MEAN PLATELET VOLUME 9.6 fL (7.4-10.4); MONO % 5.7 %; PLATELET COUNT 270 K/uL (130-400); RED BLOOD COUNT 4.84 M/uL (4.2-5.4)
[2016-12-01 16:18] LABS: MANUAL MICROSCOPIC REQUIRED? NO; REVIEW REQ? NO
[2016-12-01 16:36] LABS: ALT/SGPT 33 U/L (12-78); BLOOD UREA NITROGEN 11 mg/dl (7-18); BUN/CREATININE RATIO 12.4 (10-20); CALCIUM 9.3 mg/dl (8.5-10.1); CARBON DIOXIDE 28 mmol/L (21-32); CHLORIDE 104 mmol/L (98-107); CREATININE 0.86 mg/dl (0.60-1.20); GLUCOSE 81 mg/dl (70-99); POTASSIUM 4.3 mmol/L (3.5-5.1); SODIUM 140 mmol/L (136-145)
[2016-12-01 16:39] LABS: ALKALINE PHOSPHATASE 78 U/L (45-117); AST/SGOT 18 U/L (15-37)
--- NOTE | 2016-12-01 16:42 | DIAGNOSTIC IMAGING REPORT ---
PA CHEST WITH ABDOMINAL SERIES CLINICAL HISTORY: Generalized abdominal pain. FINDINGS: A PA chest radiograph is compared to study dated 11/05/2016. The cardiomediastinal silhouette is unremarkable. The lungs and pleural spaces are clear. No pneumothorax is seen. The bony thorax is grossly intact. Supine and erect abdominal radiographs are correlated with prior abdominal CT scans, most recently dated 11/11/2016. There is a nonobstructed abdominal bowel gas pattern. No evidence of intraperitoneal free air is seen. There is mild to moderate colonic fecal retention. Cholecystectomy clips are identified in the right upper quadrant. Surgical clips are present in the right lower quadrant and suture material is seen in the pelvis. Calcified phleboliths are again seen in the pelvis. The lumbosacral spine and bony pelvis appear intact. IMPRESSION: 1. No active disease in the chest. 2. Nonobstructed abdominal bowel gas pattern. Electronically signed by: Conrad Carbajal M.D. 12/01/2016 4:41 PM Dictated Date/Time: 12/01/2016 4:39 PM
[2016-12-01] MEDS ORDERED: FAMOTIDINE 20 MG TAB PO STA (17:01)
[2016-12-01] MEDS ORDERED: GI COCKTAIL PO STA (17:01)
[2016-12-01] MEDS ORDERED: SUCRALFATE 1 GM TAB PO STA (17:01)
[2016-12-01] MEDS ORDERED: ONDANSETRON INJ 2 MG/ML 2 ML VIAL IV STA (17:01)
[2016-12-01] MEDS ORDERED: LIDOCAINE HCL 2% VISC SOLN 20 ML UDC ONE (17:32)
[2016-12-01] MEDS ORDERED: ALUMINUM/MAGNESIUM SUSP 30 ML UDC ONE (17:32)
[2016-12-01 17:36] LABS: BENZODIAZEPINE, URINE NEG (NEG); COCAINE,URINE NEG (NEG); PHENCYCLIDINE, URINE NEG (NEG)
[2016-12-01] MEDS ORDERED: PROM25SU28 PR (18:03)
[2016-12-01 18:30] VITALS: BP 148/86; PULSE 87; O2SAT 93
[2017-01-26] MEDS ORDERED: VENL37.593 PO (06:58)
[2017-01-26] MEDS ORDERED: ESTRD2 PO (15:33)
[2017-01-27] MEDS ORDERED: ASPEC81 PO (14:19)
[2017-01-27] MEDS ORDERED: LPT40 PO (14:19)
== END 2016-12-01 18:30 | disposition home or self-care (01) ==
LOC: C.EDB 14:44 → C.EDC 18:30
DX: K52.9 Noninfective gastroenteritis and colitis, unspecified (principal); E78.5 Hyperlipidemia, unspecified; F41.1 Generalized anxiety disorder; F32.9 Major depressive disorder, single episode, unspecified; J45.909 Unspecified asthma, uncomplicated; K58.9 Irritable bowel syndrome, unspecified; K31.84 Gastroparesis; K57.92 Diverticulitis of intestine, part unspecified, without perforation or abscess without bleeding; F17.200 Nicotine dependence, unspecified, uncomplicated; Z87.820 Personal history of traumatic brain injury; Z86.19 Personal history of other infectious and parasitic diseases; Z98.51 Tubal ligation status; Z90.710 Acquired absence of both cervix and uterus; Z90.49 Acquired absence of other specified parts of digestive tract; Z98.890 Other specified postprocedural states; Z79.899 Other long term (current) drug therapy; Z88.0 Allergy status to penicillin; Z88.2 Allergy status to sulfonamides; Z88.8 Allergy status to other drugs, medicaments and biological substances; Z91.041 Radiographic dye allergy status; Z83.3 Family history of diabetes mellitus; Z82.49 Family history of ischemic heart disease and other diseases of the circulatory system

== ENCOUNTER → 2016-12-02 | Outpatient (CLI) | payer OTHER ==
[~2016-12-02] MED LIST changes: +ACET-1256 PO; +ASPEC81 PO; +ASPI81TA28 PO; +ATOR-24 PO; +CLON1TAB3 PO; +CTP/1 PO; +CTP1CL PO; +CYCL10TA7 PO; +EFFSR150 PO; +EPP3/2 IM; +ESTRD2 PO; +FAMO1TAB47 PO; +FEXO1TAB49 PO; +GEMF600T3 PO; +HALO2TAB PO; +HYDR-5688 PO; +LPT40 PO; +LSX40 PO; +MAGN250T8 PO; +MAGN400C2 PO; +ONDA4TAB9 PO; +POTA20TA13 PO; +PROM12.57 PO; +PYRI100T4 PO; +QUET-115 PO; +TRAZ100T29 PO; +VENL-273 PO; +VENL37.593 PO; +VNTHFA/IN INH
[2016-12-05 11:57] LABS: C. DIFF 027-NAP1-BI PRESUMPTIVE NEGATIVE
== END | disposition home or self-care (01) ==
LOC: C.LABSPEC 14:30
PROVIDERS: ATTEND Emergency Medicine
DX: R19.7 Diarrhea, unspecified (principal)

== ENCOUNTER 2017-01-26 15:50 | Observation (INO) | payer OTHER ==
[~2017-01-26] VITALS: Ht 165.1 cm; Wt 93.3 kg
[~2017-01-26 15:50] MED LIST changes: -ACET-1256 PO; -ASPEC81 PO; -ASPI81TA28 PO; -ATOR-24 PO; -CLON1TAB3 PO; -CTP/1 PO; -CTP1CL PO; -CYCL10TA7 PO; -EFFSR150 PO; -EPP3/2 IM; -FAMO1TAB47 PO; -FEXO1TAB49 PO; -GEMF600T3 PO; -HALO2TAB PO; -HYDR-5688 PO; -LPT40 PO; -LSX40 PO; -MAGN250T8 PO; -MAGN400C2 PO; -ONDA4TAB9 PO; -POTA20TA13 PO; -PROM12.57 PO; -PYRI100T4 PO; -QUET-115 PO; -TRAZ100T29 PO; -VENL-273 PO; -VNTHFA/IN INH
[2017-01-26] MEDS ORDERED: EFFSR150 PO (15:58)
[2017-01-26] MEDS ORDERED: ASPIRIN 81 MG CHEW PO STA (16:15)
[2017-01-26] MEDS ORDERED: SODIUM CHLORIDE 0.9% 1000ML 1,000 ML IV STA (16:15)
[2017-01-26] MEDS ORDERED: ONDANSETRON INJ 2 MG/ML 2 ML VIAL IV STA (16:15)
[2017-01-26 16:45] LABS: BASO % 0.6 %; BASO ABS # 0.06 K/uL (0-0.2); COMPLETE YES; EOS % 5.7 %; HEMATOCRIT 39.6 % (37-47); IG% 0.3 %; LYMPH ABS # 3.35 K/uL (1.2-3.4); MEAN CELL VOLUME 88.4 fL (80-100); MEAN CORPUSCULAR HEMOGLOBIN 30.8 pg (25-34); MEAN CORPUSCULAR HGB CONC 34.8 g/dl (32-36); MEAN PLATELET VOLUME 9.6 fL (7.4-10.4); MONO % 5.3 %; NEUT % 56.1 %; PLATELET COUNT 273 K/uL (130-400); RED BLOOD COUNT 4.48 M/uL (4.2-5.4); WHITE BLOOD COUNT 10.48 K/uL (4.8-10.8)
--- NOTE | 2017-01-26 16:50 | DIAGNOSTIC IMAGING REPORT ---
CHEST ONE VIEW PORTABLE CLINICAL HISTORY: Atypical chest pain and nausea. COMPARISON STUDY: 12/01/2016 FINDINGS: The cardiac and mediastinal contours are normal. There is no evidence of focal pulmonary consolidation. There is no evidence of failure. No pleural effusions are visualized.[ IMPRESSION: No active disease in the chest. Electronically signed by: Sp García M.D. 01/26/2017 4:48 PM Dictated Date/Time: 01/26/2017 4:48 PM
[2017-01-26 16:52] LABS: URINE APPEARANCE CLOUDY (CLEAR); URINE BILIRUBIN NEG (NEG); URINE COLOR YELLOW; URINE EPITHELIAL CELL AUTO >30 /lpf (0-5); URINE NITRITE NEG (NEG); URINE SPECIFIC GRAVITY 1.012 (1.000-1.030); UROBILINOGEN NEG (NEG)
[2017-01-26] MEDS: NITROGLYCERIN 0.4 MG SL PER TAB CHARGE SL PRN ×2 (16:58→17:38)
[2017-01-26 16:59] LABS: MANUAL MICROSCOPIC REQUIRED? NO; REVIEW REQ? YES
[2017-01-26 17:02] LABS: INR 0.9 (0.9-1.1); PARTIAL THROMBOPLASTIN RATIO 1.1; PROTHROMBIN TIME (PATIENT) 9.9 SECONDS (9.0-12.0)
[2017-01-26 17:39] LABS: ALKALINE PHOSPHATASE 76 U/L (45-117); ALT/SGPT 37 U/L (12-78); AST/SGOT 32 U/L (15-37); BLOOD UREA NITROGEN 10 mg/dl (7-18); BUN/CREATININE RATIO 10.3 (10-20); CALCIUM 8.4 mg/dl (8.5-10.1); CARBON DIOXIDE 28 mmol/L (21-32); CHLORIDE 102 mmol/L (98-107); CREATININE 0.92 mg/dl (0.60-1.20); GLUCOSE 105 mg/dl (70-99); POTASSIUM 3.7 mmol/L (3.5-5.1); SODIUM 139 mmol/L (136-145)
[2017-01-26] MEDS ORDERED: ACETAMINOPHEN 500 MG TAB PO ONE (17:56)
[2017-01-26] MEDS ORDERED: MAGN400C2 PO (18:28)
[2017-01-26] MEDS ORDERED: FEXO1TAB49 PO (18:28)
[2017-01-26] MEDS ORDERED: POTA20TA13 PO (18:28)
[2017-01-26] MEDS ORDERED: PYRI100T4 PO (18:28)
[2017-01-26] MEDS ORDERED: CLONAZEPAM 1 MG TAB PO PRN (18:30)
[2017-01-26] MEDS ORDERED: NITROGLYCERIN 0.4 MG SL PER TAB CHARGE SL PRN (18:30)
[2017-01-26] MEDS ORDERED: ACETAMINOPHEN 325 MG TAB PO PRN (18:30)
[2017-01-26] MEDS ORDERED: ONDANSETRON INJ 2 MG/ML 2 ML VIAL IV PRN (18:30)
[2017-01-26] MEDS ORDERED: ONDA4TAB9 PO (18:34)
--- NOTE | 2017-01-26 18:51 | History and Physical ---
History & Physical Date & Time of Service: Jan 26, 2017 at 18:29 Chief Complaint: Chest Pain Primary Care Physician: Holland Naik M.D. History of Present Illness 46 year old female who presents to the ER with chest pain. 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 She describes it as sharp and a tightness. At it's worst she rates the pain #10/10. She had associated nausea, shortness of breath, and lightheadedness. Pain also radiated into the left arm and left side of her neck. Symptoms waxed and waned throughout the afternoon. She denies any specific causative or alleviating factors. Patient received nitro and is currently chest pain free. Patient noted increased BLLE and BL hand swelling a few days ago. She denies orthopnea. She started taking OTC Vit B6, Potassium, and Magnesium and has had improvement in the swelling. She reports she otherwise has been feeling well recently and tolerating daily activities without any problem. She denies abdominal pain, nausea, or vomiting. She notes mild diarrhea since starting the magnesium. No fever or chills. She denies any urinary symptoms. In the ER, patient was given nitro and is currently chest pain free. Initial trop is negative and EKG does not show any acute ST changes. Vitals are stable. Past Medical/Surgical History Medical Problems: (1) Adjustment disorder Status: Chronic (2) Asthma Status: Chronic (3) Depression Status: Chronic (4) Diverticulosis Colon (W/O Ment Of Hemorrhage) Status: Chronic (5) Drug overdose, intentional Status: Chronic (6) DWAYNE (generalized anxiety disorder) Status: Chronic (7) Gastroparesis Status: Chronic (8) HLD (hyperlipidemia) Status: Chronic (9) IBS (irritable bowel syndrome) Status: Chronic (10) Migraine Status: Chronic (11) Postconcussion Syndrome Status: Chronic (12) Posttraumatic Stress Disorder Status: Chronic (13) Suicide attempt by drug ingestion Status: Chronic (14) Tobacco abuse Status: Chronic Surgical Problems: (1) H/O colonoscopy Status: Chronic (2) H/O esophagogastroduodenoscopy Status: Chronic (3) H/O tubal ligation Status: Chronic (4) H/O unilateral oophorectomy Status: Chronic (5) History of partial colectomy Permanent Comment: due to recurrent diverticulitis Status: Chronic (6) Hx of appendectomy Status: Chronic (7) Hx of tonsillectomy Status: Chronic (8) S/P cholecystectomy Status: Chronic (9) S/P MARLON (total abdominal hysterectomy) Status: Chronic Family History FH: heart disease MOTHER ( from OR at age 66) BROTHER (details unknown) Heart valve abnormality SISTER Social History Smoking Status: Current Every Day Smoker Alcohol Use: none Immunizations History of Tetanus Vaccine?: Yes Tetanus Immunization Date: Nov 28, 2011 Allergies Coded Allergies: Iodinated Diagnostic Agents (Verified Allergy, Intermediate, HIVES, 12/01/16 ) Tramadol (Verified Allergy, Intermediate, HIVES, 12/01/16) Penicillins (Verified Allergy, Mild, *, 12/01/16) Moxifloxacin (Verified Allergy, Unknown, UNKNOWN, 12/01/16) Sulfa Antibiotics (Verified Allergy, Unknown, unkn, 12/01/16) as a child Ketorolac Tromethamine (Verified Adverse Reaction, Intermediate, "TEARS STOMACH UP", 12/01/16) Fentanyl (Verified Adverse Reaction, Unknown, cramping and muscle spasms, 12/01/16) Prochlorperazine (Verified Adverse Reaction, Unknown, ANXIETY/JITTERY/ HYPOTENSION, 12/01/16) Home Medications Scheduled Cyclobenzaprine HCl (Cyclobenzaprine HCl), 10 MG PO HS Estradiol (Estradiol), 1 MG PO DAILY Famotidine (Famotidine), 20 MG PO BID Magnesium Oxide (Magnesium Oxide), 1 TAB PO DAILY Potassium Chloride Microencaps (Potassium Chloride Er), 1 TAB PO DAILY Pyridoxine (Vitamin B6), 1 TAB PO DAILY Venlafaxine Hcl (Effexor Extended Rel), 150 MG PO DAILY Venlafaxine Hcl (Venlafaxine Extended Rel), 37.5 MG PO DAILY Scheduled PRN Albuterol Hfa (Ventolin Hfa), 2 PUFFS INH Q4H PRN for Wheezing Clonazepam (Klonopin), 1 MG PO BID PRN for Anxiety Epinephrine (Epipen 2-Cisco), 0.3 MG IM UD PRN for ALLERGIC REACTION Fexofenadine Hcl (Hollie Allergy), 1 TAB PO DAILY PRN for allergies Review of Systems 10 point review of systems was completed with the pertinent positives and negatives noted per the HPI Physical Exam Vital Signs Date Time Temp Pulse Resp B/P Pulse Ox O2 Delivery O2 Flow Rate FiO2 01/26/17 18:08 79 18 130/89 96 01/26/17 17:09 89 20 126/91 94 Room Air 01/26/17 17:06 100 01/26/17 17:03 103 20 146/91 94 Room Air 01/26/17 15:53 36.7 106 20 149/78 99 Room Air General Appearance: no apparent distress Head: normocephalic Eyes: normal inspection ENT: hearing grossly normal Neck: supple, no JVD Respiratory/Chest: chest non-tender, lungs clear, normal breath sounds, no respiratory distress Cardiovascular: regular rate, rhythm, no edema, normal peripheral pulses Abdomen/GI: normal bowel sounds, non tender, soft Extremities/Musculoskelatal: normal inspection, no calf tenderness Neurologic/Psych: no motor/sensory deficits, alert, normal mood/affect, oriented x 3 Skin: normal color, warm/dry Diagnostics Laboratory Results Results Past 24 Hours Test 01/26/17 16:30 01/26/17 16:33 Range/Units White Blood Count 10.48 4.8-10.8 K/uL Red Blood Count 4.48 4.2-5.4 M/uL Hemoglobin 13.8 12.0-16.0 g/dL Hematocrit 39.6 37-47 % Mean Corpuscular Volume 88.4 80-100 fL Mean Corpuscular Hemoglobin 30.8 25-34 pg Mean Corpuscular Hemoglobin Concent 34.8 32-36 g/dl Platelet Count 273 130-400 K/uL Mean Platelet Volume 9.6 7.4-10.4 fL Neutrophils (%) (Auto) 56.1 % Lymphocytes (%) (Auto) 32.0 % Monocytes (%) (Auto) 5.3 % Eosinophils (%) (Auto) 5.7 % Basophils (%) (Auto) 0.6 % Neutrophils # (Auto) 5.88 1.4-6.5 K/uL Lymphocytes # (Auto) 3.35 1.2-3.4 K/uL Monocytes # (Auto) 0.56 0.11-0.59 K/uL Eosinophils # (Auto) 0.60 0-0.5 K/uL Basophils # (Auto) 0.06 0-0.2 K/uL RDW Standard Deviation 43.3 36.4-46.3 fL RDW Coefficient of Variation 13.3 11.5-14.5 % Immature Granulocyte % (Auto) 0.3 % Immature Granulocyte # (Auto) 0.03 0.00-0.02 K/uL Prothrombin Time 9.9 9.0-12.0 SECONDS Prothromb Time International Ratio 0.9 0.9-1.1 Activated Partial Thromboplast Time 29.2 21.0-31.0 SECONDS Partial Thromboplastin Ratio 1.1 Urine Color YELLOW Urine Appearance CLOUDY CLEAR Urine pH 6.0 4.5-7.5 Urine Specific [place] 1.012 1.000-1.030 Urine Protein NEG NEG Urine Glucose (UA) NEG NEG Urine Ketones NEG NEG Urine Occult Blood NEG NEG Urine Nitrite NEG NEG Urine Bilirubin NEG NEG Urine Urobilinogen NEG NEG Urine Leukocyte Esterase SMALL NEG Urine WBC (Auto) 10-30 0-5 /hpf Urine RBC (Auto) 0-4 0-4 /hpf Urine Hyaline Casts (Auto) 1-5 0-5 /lpf Urine Epithelial Cells (Auto) >30 0-5 /lpf Urine Bacteria (Auto) 2+ NEG Sodium Level 139 136-145 mmol/L Potassium Level 3.7 3.5-5.1 mmol/L Chloride Level 102 98-107 mmol/L Carbon Dioxide Level 28 21-32 mmol/L Anion Gap 9.0 3-11 mmol/L Blood Urea Nitrogen 10 7-18 mg/dl Creatinine 0.92 0.60-1.20 mg/dl Est Creatinine Clear Calc Drug Dose 88.4 ml/min Estimated GFR () 87.8 Estimated GFR (Non- 75.7 BUN/Creatinine Ratio 10.3 10-20 Random Glucose 105 70-99 mg/dl Calcium Level 8.4 8.5-10.1 mg/dl Total Bilirubin 0.3 0.2-1 mg/dl Direct Bilirubin < 0.1 0-0.2 mg/dl Aspartate Amino Transf (AST/SGOT) 32 15-37 U/L Alanine Aminotransferase (ALT/SGPT) 37 12-78 U/L Alkaline Phosphatase 76 45-117 U/L Total Protein 7.6 6.4-8.2 gm/dl Albumin 3.7 3.4-5.0 gm/dl Lipase 142 73-393 U/L Bedside D-Dimer 130 0-450 ng/mlFEU Bedside Troponin I 0.000 0-0.045 ng/ml Diagnostic Radiology CXR IMPRESSION: No active disease in the chest. Impression Assessment and Plan CHEST PAIN, R/O ACS - admit to tele - patient presenting with a few hours of constant left sided stabbing/pressure like chest pain with radiation into the neck and left arm - symptoms resolved with nitro - risk factors: tobacco use, + family history, on chronic estrogen therapy - initial trop negative and EKG without acute ST changes, will continue to cycle and if remain negative, will get exercise stress test in AM - check lipids in AM - hold estrogen - s/p ASA 325mg in ED, will continue with 81mg daily and start atorvastatin 80mg - PRN nitro and EKG with chest pain ANXIETY/DEPRESSION - stable, continue home meds GERD - continue H2 nneka DVT PROPHYLAXIS - SCDs DISPO - The patient will be placed as observation status for now until further work up is complete. I have seen and examined the patient and discussed the case with the provider above. I agree with the assessment and plan. Ms. Matthews has new onset chest pain which is intermittent throughout the day today, relieved completely with Nitroglycerin. She has RFs for CAD including active smoking, HTN and HLP along with a family h/o SCD in her 66 year old mother. Current cardiac workup including cardiac enzymes and EKG reveals no objective signs of ischemia. VSS and physical exam is unremarkable with no chest wall TTP. She was counseled to quit smoking and verbalized understanding with intent to comply. Will trend serial cardiac enzymes overnight and stress her with echo treadmill in am. Monitor on telemetry overnight. Mindy Jessica DO Hospitalist Level of Care Telemetry Resuscitation Status FULL RESUSCITATION VTE Prophylaxis VTE Risk Assessment Done? Y/N: Yes Risk Level: Moderate Given or contraindicated: Enoxaparin (Lovenox)SQ Social Service Consult None Apply
[2017-01-26 20:00] VITALS: BP 124/82; PULSE 73; TEMP 36.6; O2SAT 95; Ht 165.1 cm; Wt 93.3 kg
[2017-01-26] MEDS ORDERED: FAMO1TAB47 PO (20:05)
[2017-01-26] MEDS ORDERED: CLON1TAB3 PO (20:05)
[2017-01-26] MEDS ORDERED: CYCL10TA7 PO (20:05)
[2017-01-26] MEDS ORDERED: VNTHFA/IN INH (20:09)
[2017-01-26] MEDS ORDERED: EPP3/2 IM (20:10)
[2017-01-26] MEDS ORDERED: IV FLUIDS COMPLETED PRN (20:15)
[2017-01-26] MEDS ORDERED: NURSING VERBAL MED ORDER ONE ×2 (20:30→22:00)
[2017-01-26] MEDS ORDERED: ALUMINUM/MAGNESIUM SUSP 18 ML, LIDOCAINE HCL 2% VISCOUS SOLN 6 ML, BARCODE IDENTIFIER 1 EA PO SCH ×2 (20:45)
[2017-01-26] MEDS ORDERED: ATORVASTATIN 40 MG TAB PO SCH (21:00)
[2017-01-26] MEDS ORDERED: CYCLOBENZAPRINE HCL 10 MG TAB PO SCH (21:00)
[2017-01-26] MEDS: FAMOTIDINE 20 MG TAB PO SCH (21:08)
[2017-01-26] MEDS ORDERED: MoRPHine SULFATE 2 MG/ML CARP IV STA (21:53)
[2017-01-26] MEDS ORDERED: MoRPHine SULFATE 2 MG/ML CARP ONE (21:59)
[2017-01-26 23:19] VITALS: BP 119/78; PULSE 85; TEMP 36.5; O2SAT 97
[2017-01-27 00:05] VITALS: O2SAT 95
--- NOTE | 2017-01-27 00:23 | EMERGENCY ROOM VISIT NOTE ---
ED Visit Note First contact with patient: 16:04 Chief Complaint: Chest pain. History of Present Illness: Ms. Matthews is a 46 year-old white female who ambulates into the ED complaining of left-sided chest pain. Historically patient reports reports she has no history of heart disease although her risk factors include tobacco use, dyslipidemia, secondary lifestyle , mild obesity. She does report her family history of strong; she reports her mother of myocardial infarction at age 66 and she has a brother with unspecified heart disease and a sister with out or heart disease. 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 Since that time the pain has been constant. The pain is currently described as squeezing sensation that starts at the left sternal border and radiates into the left lateral neck, left shoulder and down the left arm. She also reports intermittently she has a sharp pain that starts at the same location and wraps around the chest and into the back. She currently rates her discomfort 7/10. The pain worsens with deep inspiration. She has not identified any alleviating factors related to the pain. She has not taken any medications for pain prior to arrival at the hospital. Associated with her pain she reports that she has mild shortness of breath, nausea without vomiting , lightheadedness and had one large watery bowel movement. Additionally she reports over the last few weeks she reports that while she is sitting down and resting she develops a numbness sensation in all of her extremities that resolves when she stands up and moves. She also has been having increasing dependent edema that resolves after sleep and over the last week she has been having a large amount of leg cramping. She does use tobacco and estrogen. Patient denies fevers, chills, sweats, skin eruptions, skin color changes, upper respiratory tract symptoms, wheezing, cough orthopnea, dependent edema, previous clots, claudication, abdominal pain, constipation, rectal bleeding, black/tarry stools, urinary symptoms. Review of Systems: As noted above in history of present illness. All body systems were reviewed and found to be negative as noted above. Past Medical History: Kidney stones, fibromyalgia and (1) Adjustment disorder (2) Asthma (3) Chronic Cholecystitis (4) Depression (5) Diverticulosis Colon (W/O Ment Of Hemorrhage) (6) Drug overdose, intentional (7) DWAYNE (generalized anxiety disorder) (8) Gastritis (9) Gastroparesis (10) Generalized Anxiety Dis (11) History of Lyme disease (12) HLD (hyperlipidemia) (13) IBS (irritable bowel syndrome) (14) Irritable Bowel Syndrome (15) Migraine (16) Myalgia and myositis (17) Personality disorder (18) Postconcussion Syndrome (19) Posttraumatic Stress Disorder (20) Suicide attempt by drug ingestion (21) Tobacco abuse Surgical Problems: (1) H/O colonoscopy (2) H/O esophagogastroduodenoscopy (3) H/O tubal ligation (4) H/O unilateral oophorectomy (5) History of partial colectomy (6) Hx of appendectomy (7) Hx of tonsillectomy (8) S/P cholecystectomy (9) S/P MARLON (total abdominal hysterectomy) Current Medications: Medications Dose Route/Sig Max Daily Dose Days Date Category Dose Instructions Potassium Chloride Er (Potassium Chloride Microencaps) Unknown Strength Tab 1 Tab PO DAILY 30 01/26/17 Reported Magnesium Oxide Unknown Strength Cap 1 Tab PO DAILY 30 01/26/17 Reported Vitamin B6 (Pyridoxine HCl) Unknown Strength Tab 1 Tab PO DAILY 01/26/17 Reported Hollie Allergy (Fexofenadine Hcl) 180 Mg Tab 1 Tab PO DAILY PRN 30 01/26/17 Reported Epipen 2-Cisco (Epinephrine) 0.3 Mg Inj 0.3 Mg IM UD PRN 11/04/16 Reported FOR SEVERE REACTION PLACE ORANGE END ON OUTER THIGH, PRESS FIRMLY AND HOLD IN PLACE FOR 10 SECONDS Ventolin Hfa (Albuterol) 200 Puffs/20601 Mcg Aers 2 Puffs INH Q4H PRN 11/04/16 Reported Klonopin (Clonazepam) 1 Mg Tab 1 Mg PO BID PRN 11/04/16 Reported Cyclobenzaprine HCl 10 Mg Tab 10 Mg PO HS 11/04/16 Reported Famotidine 20 Mg Tab 20 Mg PO BID 11/04/16 Reported Estradiol 2 Mg Tab 1 Mg PO DAILY 09/08/16 Reported Venlafaxine Extended Rel (Venlafaxine Hcl) 37.5 Mg Cap 37.5 Mg PO DAILY 11/10/15 Reported TAKE ONE 37.5 MG CAPSULE ALONG WITH ONE 150 MG CAPSULE TO EQUAL 187.5 MG DAILY DOSE Effexor Extended Rel (Venlafaxine Hcl) 150 Mg Capcr 150 Mg PO DAILY 03/02/15 Reported TAKE ONE 150 MG CAPSULE ALONG WITH ONE 37.5 MG CAPSULE TO EQUAL 187.5 MG DAILY DOSE Allergies to Medications: Fentanyl, IV contrast medium, tramadol, Toradol, ibuprofen, sulfa, penicillin, Social History: Patient is currently employed; she feels safe in her home environment; she admits to tobacco use and denies alcohol use. Physical Examination: Vital Signs: Date Time Temp Pulse Resp B/P Pulse Ox O2 Delivery O2 Flow Rate FiO2 01/26/17 18:08 79 18 130/89 96 01/26/17 17:09 89 20 126/91 94 Room Air 01/26/17 17:06 100 01/26/17 17:03 103 20 146/91 94 Room Air 01/26/17 15:53 36.7 106 20 149/78 99 Room Air GENERAL: 46-year-old female in mild distress due to pain, nontoxic-appearing, afebrile and hemodynamically stable. NEUROLOGICAL: Awake, alert and oriented to person, place and time. Answering questions appropriately and following commands. Normal gait. Good hand eye coordination. SKIN: Warm, dry and pink. No soft tissue eruptions or trauma noted. HEENT: Atraumatic and normocephalic. PERRLA. Sclera white and conjunctiva pink. Oral cavity moist and pink. Pharynx is nonerythematous or edematous. Speech normal. No lymphadenopathy. Trachea midline. No jugular venous distention. No carotid bruits. BACK: No tenderness over the bony spine. No CVA tenderness. THORAX: Lungs sounds are clear to auscultation and equal bilaterally with symmetrical chest wall. No wheezing, rales or rhonchi. No crepitus, tenderness , subcutaneous air or deformities noted. HEART: Regular rate and rhythm. No gallops, rubs or murmurs are appreciated. No lifts, heaves or thrills. PMI is not displaced. ABDOMEN: Flat, soft and nontender. Positive bowel sounds in all quadrants. No guarding, rigidity or organomegaly. EXTREMITIES: Moves all extremities well on command and with purpose. All distal neurovascular statuses are intact and equal bilaterally. No dependent edema or calf tenderness/cords. ED Course: Patient is assessed as noted above. Laboratory Testing: Test 01/26/17 16:30 01/26/17 16:33 Range/Units White Blood Count 10.48 4.8-10.8 K/uL Red Blood Count 4.48 4.2-5.4 M/uL Hemoglobin 13.8 12.0-16.0 g/dL Hematocrit 39.6 37-47 % Mean Corpuscular Volume 88.4 80-100 fL Mean Corpuscular Hemoglobin 30.8 25-34 pg Mean Corpuscular Hemoglobin Concent 34.8 32-36 g/dl Platelet Count 273 130-400 K/uL Mean Platelet Volume 9.6 7.4-10.4 fL Neutrophils (%) (Auto) 56.1 % Lymphocytes (%) (Auto) 32.0 % Monocytes (%) (Auto) 5.3 % Eosinophils (%) (Auto) 5.7 % Basophils (%) (Auto) 0.6 % Neutrophils # (Auto) 5.88 1.4-6.5 K/uL Lymphocytes # (Auto) 3.35 1.2-3.4 K/uL Monocytes # (Auto) 0.56 0.11-0.59 K/uL Eosinophils # (Auto) 0.60 0-0.5 K/uL Basophils # (Auto) 0.06 0-0.2 K/uL RDW Standard Deviation 43.3 36.4-46.3 fL RDW Coefficient of Variation 13.3 11.5-14.5 % Immature Granulocyte % (Auto) 0.3 % Immature Granulocyte # (Auto) 0.03 0.00-0.02 K/uL Prothrombin Time 9.9 9.0-12.0 SECONDS Prothromb Time International Ratio 0.9 0.9-1.1 Activated Partial Thromboplast Time 29.2 21.0-31.0 SECONDS Partial Thromboplastin Ratio 1.1 Urine Color YELLOW Urine Appearance CLOUDY CLEAR Urine pH 6.0 4.5-7.5 Urine Specific [place] 1.012 1.000-1.030 Urine Protein NEG NEG Urine Glucose (UA) NEG NEG Urine Ketones NEG NEG Urine Occult Blood NEG NEG Urine Nitrite NEG NEG Urine Bilirubin NEG NEG Urine Urobilinogen NEG NEG Urine Leukocyte Esterase SMALL NEG Urine WBC (Auto) 10-30 0-5 /hpf Urine RBC (Auto) 0-4 0-4 /hpf Urine Hyaline Casts (Auto) 1-5 0-5 /lpf Urine Epithelial Cells (Auto) >30 0-5 /lpf Urine Bacteria (Auto) 2+ NEG Sodium Level 139 136-145 mmol/L Potassium Level 3.7 3.5-5.1 mmol/L Chloride Level 102 98-107 mmol/L Carbon Dioxide Level 28 21-32 mmol/L Anion Gap 9.0 3-11 mmol/L Blood Urea Nitrogen 10 7-18 mg/dl Creatinine 0.92 0.60-1.20 mg/dl Est Creatinine Clear Calc Drug Dose 88.4 ml/min Estimated GFR () 87.8 Estimated GFR (Non- 75.7 BUN/Creatinine Ratio 10.3 10-20 Random Glucose 105 70-99 mg/dl Calcium Level 8.4 8.5-10.1 mg/dl Total Bilirubin 0.3 0.2-1 mg/dl Direct Bilirubin < 0.1 0-0.2 mg/dl Aspartate Amino Transf (AST/SGOT) 32 15-37 U/L Alanine Aminotransferase (ALT/SGPT) 37 12-78 U/L Alkaline Phosphatase 76 45-117 U/L Total Protein 7.6 6.4-8.2 gm/dl Albumin 3.7 3.4-5.0 gm/dl Lipase 142 73-393 U/L Bedside D-Dimer 130 0-450 ng/mlFEU Bedside Troponin I 0.000 0-0.045 ng/ml Chest X-Rays: Was read by myself and the radiologist showing no acute infiltrates, effusions or pneumothorax. Normal heart silhouette and bony anatomy. EKG: Was read by myself and reviewed with Dr. Rehman; shows sinus tachycardia with a ventricular rate of 101 bpm. Normal access and complexes. Nonspecific T-wave abnormality. No signs of acute ischemia. Compared to previous which was normal sinus but no acute ST changes. Patient was hydrated with normal saline and she was given 4 mg of Zofran IV for nausea. She then received 324 mg of aspirin and 0.4 mg of subungual nitroglycerin. Within 5 minutes of her first nitroglycerin she was pain-free. Approximately 2 hours later her chest pain returned and she was given a second nitroglycerin tablet and once again had resolution of her discomfort. After her second nitroglycerin tablet she reports that she had a headache and she was given 1 g of Tylenol by mouth. Patient was reassessed multiple times during her stay in the emergency department. Patient's case was reviewed with Dr. Rehman; he and the family assessed the patient we agreed on diagnostic approach, treatment, disposition and plan. Patient's case was consulted with case management and Dr. Horvath, [facility] hospitalist, for medical observation/admission. Patient was educated about tonight's findings. Clinical Impression: Acute chest pain. Decision-Making: Initially my differential diagnosis I considered acute coronary syndrome, thoracic aneurysm, pneumothorax, pneumonia, pulmonary embolism and other causes. Disposition and Plan: Patient be brought in the hospital for medical observation /admission; please see hospitalist notes and orders for final disposition and plan.
[2017-01-27 04:33] VITALS: BP 120/80; PULSE 78; TEMP 36.6; O2SAT 95
[2017-01-27 04:35] LABS: HEMATOCRIT 39.8 % (37-47); MEAN CELL VOLUME 88.4 fL (80-100); MEAN CORPUSCULAR HEMOGLOBIN 29.6 pg (25-34); MEAN CORPUSCULAR HGB CONC 33.4 g/dl (32-36); MEAN PLATELET VOLUME 9.2 fL (7.4-10.4); PLATELET COUNT 231 K/uL (130-400); WHITE BLOOD COUNT 9.39 K/uL (4.8-10.8)
[2017-01-27 04:53] LABS: BLOOD UREA NITROGEN 10 mg/dl (7-18); CALCIUM 8.5 mg/dl (8.5-10.1); CARBON DIOXIDE 29 mmol/L (21-32); CHLORIDE 108 mmol/L (98-107); CREATININE 0.82 mg/dl (0.60-1.20); GLUCOSE 84 mg/dl (70-99); POTASSIUM 4.2 mmol/L (3.5-5.1); SODIUM 143 mmol/L (136-145)
[2017-01-27 04:59] LABS: CHOLESTEROL 269 mg/dl (0-200); CHOLESTEROL/HDL RATIO 6.3; HDL CHOLESTEROL 43 mg/dl; LDL CHOLESTEROL CALCULATED 177 mg/dl; TRIGLYCERIDES 243 mg/dl (0-150); VERY LOW DENSITY LIPOPROT CALC 49 mg/dl
[2017-01-27 07:51] VITALS: BP 109/72; PULSE 77; TEMP 36.5; O2SAT 97
[2017-01-27] MEDS ORDERED: ASPIRIN 81 MG ECTAB PO SCH (09:00)
[2017-01-27] MEDS ORDERED: VENLAFAXINE HCL XR 37.5 MG CAPXR PO SCH (09:00)
[2017-01-27] MEDS ORDERED: ENOXAPARIN 40 MG/0.4 ML SYR SQ SCH (09:00)
[2017-01-27] MEDS ORDERED: VENLAFAXINE HCL XR 150 MG CAPXR PO SCH (09:00)
[2017-01-27] MEDS: FAMOTIDINE 20 MG TAB PO SCH (09:00)
--- NOTE | 2017-01-27 14:03 | Progress Note ---
Internal Med Progress Note Date of Service: Jan 27, 2017. Provider Documentation: SUBJECTIVE: The patient was seen and examined No more Chest pain S/P Negative stress ECHO OBJECTIVE: Vital Signs-as noted below Exam: General-No distress at rest Eyes-normal ENT-normal Neck-supple Lungs-clear to ausucltate bilaterally Heart-Regular,no murmur appreciated Abdomen-Benign,no masses,bowel sound present Extremities-no edema Neuro-AAOx3 Lab data as noted below. ASSESSMENT & PLAN: CHEST PAIN, R/O ACS - patient presented with a few hours of constant left sided stabbing/pressure like chest pain with radiation into the neck and left arm - symptoms resolved with nitro - risk factors: tobacco use, + family history, on chronic estrogen therapy -Serial Lin are negative for any ACS - check lipids_elevated - hold estrogen -S/P Stress ECHO -negative -can go home ANXIETY/DEPRESSION - stable, continue home meds -no acute issue GERD - continue H2 nneka DVT PROPHYLAXIS - SCDs DISPO Discharge home today Vital Signs: Date Time Temp Pulse Resp B/P Pulse Ox O2 Delivery O2 Flow Rate FiO2 01/27/17 12:00 Room Air 01/27/17 08:00 Room Air 01/27/17 07:51 36.5 77 16 109/72 97 Room Air 01/27/17 04:33 36.6 78 16 120/80 95 Room Air 01/27/17 04:00 Room Air 01/27/17 00:05 95 Room Air 01/26/17 23:19 36.5 85 16 119/78 97 Room Air 01/26/17 20:00 Room Air 01/26/17 20:00 36.6 73 18 124/82 95 Room Air 01/26/17 19:07 79 17 128/97 97 Room Air 01/26/17 18:08 79 18 130/89 96 01/26/17 17:09 89 20 126/91 94 Room Air 01/26/17 17:06 100 01/26/17 17:03 103 20 146/91 94 Room Air 01/26/17 15:53 36.7 106 20 149/78 99 Room Air Lab Results: Results Past 24 Hours Test 01/26/17 16:30 01/26/17 16:33 01/26/17 21:55 01/27/17 04:00 Range/Units White Blood Count 10.48 4.8-10.8 K/uL Red Blood Count 4.48 4.2-5.4 M/uL Hemoglobin 13.8 12.0-16.0 g/dL Hematocrit 39.6 37-47 % Mean Corpuscular Volume 88.4 80-100 fL Mean Corpuscular Hemoglobin 30.8 25-34 pg Mean Corpuscular Hemoglobin Concent 34.8 32-36 g/dl Platelet Count 273 130-400 K/uL Mean Platelet Volume 9.6 7.4-10.4 fL Neutrophils (%) (Auto) 56.1 % Lymphocytes (%) (Auto) 32.0 % Monocytes (%) (Auto) 5.3 % Eosinophils (%) (Auto) 5.7 % Basophils (%) (Auto) 0.6 % Neutrophils # (Auto) 5.88 1.4-6.5 K/uL Lymphocytes # (Auto) 3.35 1.2-3.4 K/uL Monocytes # (Auto) 0.56 0.11-0.59 K/uL Eosinophils # (Auto) 0.60 0-0.5 K/uL Basophils # (Auto) 0.06 0-0.2 K/uL RDW Standard Deviation 43.3 36.4-46.3 fL RDW Coefficient of Variation 13.3 11.5-14.5 % Immature Granulocyte % (Auto) 0.3 % Immature Granulocyte # (Auto) 0.03 0.00-0.02 K/uL Prothrombin Time 9.9 9.0-12.0 SECONDS Prothromb Time International Ratio 0.9 0.9-1.1 Activated Partial Thromboplast Time 29.2 21.0-31.0 SECONDS Partial Thromboplastin Ratio 1.1 Urine Color YELLOW Urine Appearance CLOUDY CLEAR Urine pH 6.0 4.5-7.5 Urine Specific [place] 1.012 1.000-1.030 Urine Protein NEG NEG Urine Glucose (UA) NEG NEG Urine Ketones NEG NEG Urine Occult Blood NEG NEG Urine Nitrite NEG NEG Urine Bilirubin NEG NEG Urine Urobilinogen NEG NEG Urine Leukocyte Esterase SMALL NEG Urine WBC (Auto) 10-30 0-5 /hpf Urine RBC (Auto) 0-4 0-4 /hpf Urine Hyaline Casts (Auto) 1-5 0-5 /lpf Urine Epithelial Cells (Auto) >30 0-5 /lpf Urine Bacteria (Auto) 2+ NEG Sodium Level 139 136-145 mmol/L Potassium Level 3.7 3.5-5.1 mmol/L Chloride Level 102 98-107 mmol/L Carbon Dioxide Level 28 21-32 mmol/L Anion Gap 9.0 3-11 mmol/L Blood Urea Nitrogen 10 7-18 mg/dl Creatinine 0.92 0.60-1.20 mg/dl Est Creatinine Clear Calc Drug Dose 88.4 ml/min Estimated GFR () 87.8 Estimated GFR (Non- 75.7 BUN/Creatinine Ratio 10.3 10-20 Random Glucose 105 70-99 mg/dl Calcium Level 8.4 8.5-10.1 mg/dl Total Bilirubin 0.3 0.2-1 mg/dl Direct Bilirubin < 0.1 0-0.2 mg/dl Aspartate Amino Transf (AST/SGOT) 32 15-37 U/L Alanine Aminotransferase (ALT/SGPT) 37 12-78 U/L Alkaline Phosphatase 76 45-117 U/L Total Protein 7.6 6.4-8.2 gm/dl Albumin 3.7 3.4-5.0 gm/dl Lipase 142 73-393 U/L Bedside D-Dimer 130 0-450 ng/mlFEU Bedside Troponin I 0.000 0-0.045 ng/ml Creatine Kinase MB 1.5 0.5-3.6 ng/ml Creatine Kinase MB Ratio 0-3.0 Troponin I < 0.015 0-0.045 ng/ml Test 01/27/17 04:08 Range/Units White Blood Count 9.39 4.8-10.8 K/uL Red Blood Count 4.50 4.2-5.4 M/uL Hemoglobin 13.3 12.0-16.0 g/dL Hematocrit 39.8 37-47 % Mean Corpuscular Volume 88.4 80-100 fL Mean Corpuscular Hemoglobin 29.6 25-34 pg Mean Corpuscular Hemoglobin Concent 33.4 32-36 g/dl RDW Standard Deviation 44.0 36.4-46.3 fL RDW Coefficient of Variation 13.6 11.5-14.5 % Platelet Count 231 130-400 K/uL Mean Platelet Volume 9.2 7.4-10.4 fL Sodium Level 143 136-145 mmol/L Potassium Level 4.2 3.5-5.1 mmol/L Chloride Level 108 98-107 mmol/L Carbon Dioxide Level 29 21-32 mmol/L Anion Gap 6.0 3-11 mmol/L Blood Urea Nitrogen 10 7-18 mg/dl Creatinine 0.82 0.60-1.20 mg/dl Est Creatinine Clear Calc Drug Dose 99.2 ml/min Estimated GFR () 100.9 Estimated GFR (Non- 87.0 BUN/Creatinine Ratio 12.0 10-20 Random Glucose 84 70-99 mg/dl Calcium Level 8.5 8.5-10.1 mg/dl Creatine Kinase MB 1.1 0.5-3.6 ng/ml Troponin I < 0.015 0-0.045 ng/ml Triglycerides Level 243 0-150 mg/dl Cholesterol Level 269 0-200 mg/dl HDL Cholesterol 43 mg/dl LDL Cholesterol, Calculated 177 mg/dl VLDL Cholesterol, Calculated 49 mg/dl Cholesterol/HDL Ratio 6.3
[2017-01-27] MEDS ORDERED: ASPEC81 PO (14:19)
[2017-01-27] MEDS ORDERED: LPT40 PO (14:19)
--- NOTE | 2017-01-27 14:22 | Discharge Instructions ---
Discharge Instructions Date of Service Jan 27, 2017. Admission Reason for Admission: Chest Pain Left Side, Left Arm, Nausea Discharge Discharge Diagnosis / Problem: Chest pain-no ACS and negative stress ECHO Discharge Goals Goal(s): Prevent Disease Progression Activity Recommendations Activity Limitations: resume your previous activity . Instructions / Follow-Up Instructions / Follow-Up Dr Naik on 02/02/17 at 2:45 PM Current Hospital Diet Patient's current hospital diet: AHA Diet (Heart Healthy) Discharge Diet Recommended Diet: AHA Diet (Heart Healthy) Pending Studies Studies pending at discharge: no Laboratory Results Lipid Panel Test 01/27/17 04:08 Range/Units Triglycerides Level 243 H 0-150 mg/dl Cholesterol Level 269 H 0-200 mg/dl HDL Cholesterol 43 mg/dl Cholesterol/HDL Ratio 6.3 LDL Cholesterol, Calculated 177 mg/dl Medical Emergencies . Who to Call and When: Medical Emergencies: If at any time you feel your situation is an emergency, please call 911 immediately. . Non-Emergent Contact Non-Emergency issues call your: Primary Care Provider . Past History Medical & Surgical History: (1) Asthma (2) HLD (hyperlipidemia) (3) IBS (irritable bowel syndrome) (4) Hx of tonsillectomy (5) H/O tubal ligation (6) S/P MARLON (total abdominal hysterectomy) (7) History of partial colectomy . "Provider Documentation" section prepared by Taylor Hoffman. VTE Core Measure Inpt VTE Proph given/why not?: Enoxaparin (Lovenox)SQ
[2017-01-27 15:14] VITALS: BP 109/72; PULSE 77; TEMP 36.5; O2SAT 97
[2017-01-27 15:44] VITALS: BP 136/88; PULSE 102; TEMP 36.5; O2SAT 96
--- NOTE | 2017-01-27 18:21 | EXERCISE STRESS ECHO ---
*NOTICE TO RECEIVING REPUBLICAN AGENCY This information is strictly Confidential and protected under [place] law. [place] law prohibits you from making any further disclosure of this information unless further disclosure is expressly permitted by the written consent of the person to whom it pertains or is authorized by law. A general authorization for the release of medical or other information is not sufficient for this purpose. Hospital accepts no responsibility if the information is made available to any other person, INCLUDING THE PATIENT. Interpretation Summary * Name: TACO REYES Study Date: 01/27/2017 10:59 AM BP: 123/83 mmHg * Patient Location: .[facility]\S\N282\S\2 HR: 77 * : 1970 (M/d/yyyy) Gender: Female Height: 65 in * Age: 46 yrs Ethnicity: CT Weight: 207 lb * Ordering Physician: Ofelia Mayen * Referring Physician: Self, Referred * Performed By: Pasha Jean-Baptiste RCS * * Reason For Study: CHEST PAIN * BSA: 2.0 m2 * The exercise echocardiographic examination is normal without resting left ventricular wall motion abnormalities or inducible ischemia. * -- Conclusions -- * Left ventricular systolic function is normal. * Ejection Fraction = 65-70%. * There is mild mitral regurgitation. * Pulse wave TDI of the anterior and posterior mitral annulas demonstrates normal LV relaxation Procedure Details * ECHOEX, CPT #[id number] * ECHO COLOR FLOW, CPT #[id number] * ECHO DOPPLER, CPT #[id number] Left Ventricle * The left ventricle is normal in size. * There is normal left ventricular wall thickness. * Ejection Fraction = 65-70%. * Left ventricular systolic function is normal. * Resting wall motion: Normal. Stress wall motion: Appropriate increase in Left ventricular systolic function and decrease in cavity size. No stress induced segmental wall motion abnormalities. Right Ventricle * The right ventricle is normal in size and function. Atria * The left atrial size is normal. * Right atrial size is normal. * No ASD detected; PFO is not assessed. Mitral Valve * The mitral valve is normal. * There is no mitral valve stenosis. * There is mild mitral regurgitation. Tricuspid Valve * The tricuspid valve is normal. * There is no tricuspid stenosis. * No tricuspid regurgitation. Aortic Valve * The aortic valve is trileaflet. * No hemodynamically significant valvular aortic stenosis. * No aortic regurgitation is present. Pulmonic Valve * The pulmonic valve is not well visualized. Great Vessels * The aortic root is normal size. Pericardium * There is no pericardial effusion. Stress Parameters * The baseline ECG displays normal sinus rhythm. * Stress ECG: No ST changes. No arrhythmias. * The stress portion of this study was personally supervised by the undersigned interpreting physician. * Rest heart rate was '77' BPM. * Rest blood pressure was '123/83' * Maximum heart rate achieved was 169 bpm. * Maximum heart rate was 96 % of maximum age-predicted heart rate. * Maximum blood pressure was '155/80' * Total exercise time was '7:30' * Maximum exercise MET level achieved was '9.3' METS * Maximum treadmill speed was '3.4' miles per hour. * Maximum treadmill elevation was '14'% grade. * Exercise was terminated due to 'FATIGUE AFTER ACHIEVING TARGET HEART RATE' * Normal blood pressure response to exercise. Left Ventricular Diastolic Function * Pulse wave TDI of the anterior and posterior mitral annulas demonstrates normal LV relaxation MMode 2D Measurements and Calculations IVSd 0.97 cm IVSs 1.3 cm LVIDd 4.4 cm LVIDs 2.7 cm LVPWd 0.90 cm LVPWs 1.3 cm IVS/LVPW 1.1 FS 39.7 % EDV(Teich) 88.8 ml ESV(Teich) 26.2 ml EF(Teich) 70.5 % EDV(cubed) 86.5 ml ESV(cubed) 19.0 ml EF(cubed) 78.1 % % IVS thick 30.0 % % LVPW thick 48.9 % LV mass(C)d 135.8 grams LV mass(C)dI 67.7 grams/m\S\2 LV mass(C)s 106.3 grams LV mass(C)sI 53.0 grams/m\S\2 CO(Teich) 4.3 l/min CI(Teich) 2.1 l/min/m\S\2 SV(Teich) 62.6 ml SI(Teich) 31.2 ml/m\S\2 CO(cubed) 4.6 l/min CI(cubed) 2.3 l/min/m\S\2 SV(cubed) 67.6 ml SI(cubed) 33.7 ml/m\S\2 Ao root diam 3.0 cm Ao root area 7.3 cm\S\2 ACS 1.6 cm LA dimension 3.2 cm LA/Ao 1.0 LVAd ap4 29.0 cm\S\2 LVLd ap4 8.5 cm EDV(MOD-sp4) 81.0 ml LVAs ap4 15.8 cm\S\2 LVLs ap4 6.6 cm ESV(MOD-sp4) 33.0 ml EF(MOD-sp4) 59.3 % LVAd ap2 32.0 cm\S\2 LVLd ap2 8.6 cm EDV(MOD-sp2) 99.0 ml LVAs ap2 14.5 cm\S\2 LVLs ap2 6.4 cm ESV(MOD-sp2) 27.0 ml EF(MOD-sp2) 72.7 % CO(MOD-sp4) 3.3 l/min CI(MOD-sp4) 1.6 l/min/m\S\2 SV(MOD-sp4) 48.0 ml SI(MOD-sp4) 23.9 ml/m\S\2 CO(MOD-sp2) 4.9 l/min CI(MOD-sp2) 2.4 l/min/m\S\2 SV(MOD-sp2) 72.0 ml SI(MOD-sp2) 35.9 ml/m\S\2 Doppler Measurements and Calculations MV E max jose de jesus 81.8 cm/sec MV A max jose de jesus 65.2 cm/sec MV E/A 1.3 MV P1/2t max jose de jesus 102.8 cm/sec MV P1/2t 49.4 msec MVA(P1/2t) 4.5 cm\S\2 MV dec slope 609.4 cm/sec\S\2 MV dec time 0.23 sec Ao V2 max 123.1 cm/sec Ao max PG 6.1 mmHg Ao max PG (full) 1.3 mmHg LV V1 max PG 4.8 mmHg LV V1 max 109.1 cm/sec PA V2 max 117.3 cm/sec PA max PG 5.5 mmHg TR max jose de jesus 229.2 cm/sec
--- NOTE | 2017-02-07 10:24 | Discharge Summary ---
Discharge Summary Date of Service Feb 07, 2017. Discharge Summary Admission Date: Jan 26, 2017 at 18:23 Discharge Date: Jan 27, 2017 Discharge Disposition: Home Principal Diagnosis: Chest pain-no ACS and negative stress ECHO Secondary Diagnoses/Problems: Please see H&P and Hospital progress note Medication Reconciliation New Medications: Aspirin (Aspirin EC Low Dose) 81 Mg Ectab 81 MG PO QAM for 30 Days, #30 Atorvastatin (Atorvastatin Calcium) 40 Mg Tab 40 MG PO HS for 30 Days, #30 TAB Continued Medications: Albuterol Hfa (Ventolin Hfa) 200 Puffs/29295 Mcg Aers 2 PUFFS INH Q4H PRN for Wheezing Clonazepam (Klonopin) 1 Mg Tab 1 MG PO BID PRN for Anxiety Cyclobenzaprine HCl (Cyclobenzaprine HCl) 10 Mg Tab 10 MG PO HS Epinephrine (Epipen 2-Cisco) 0.3 Mg Inj 0.3 MG IM UD PRN for ALLERGIC REACTION FOR SEVERE REACTION PLACE ORANGE END ON OUTER THIGH, PRESS FIRMLY AND HOLD IN PLACE FOR 10 SECONDS Estradiol (Estradiol) 2 Mg Tab 1 MG PO DAILY Famotidine (Famotidine) 20 Mg Tab 20 MG PO BID Fexofenadine Hcl (Hollie Allergy) 180 Mg Tab 1 TAB PO DAILY PRN for allergies for 30 Days, #30 TAB 2 Refills Magnesium Oxide (Magnesium Oxide) Unknown Strength Cap 1 TAB PO DAILY for 30 Days, CAP 3 Refills Potassium Chloride Microencaps (Potassium Chloride Er) Unknown Strength Tab 1 TAB PO DAILY for 30 Days, TAB 5 Refills Pyridoxine (Vitamin B6) Unknown Strength Tab 1 TAB PO DAILY, TAB Venlafaxine Hcl (Effexor Extended Rel) 150 Mg Capcr 150 MG PO DAILY TAKE ONE 150 MG CAPSULE ALONG WITH ONE 37.5 MG CAPSULE TO EQUAL 187.5 MG DAILY DOSE Venlafaxine Hcl (Venlafaxine Extended Rel) 37.5 Mg Cap 37.5 MG PO DAILY, CAP TAKE ONE 37.5 MG CAPSULE ALONG WITH ONE 150 MG CAPSULE TO EQUAL 187.5 MG DAILY DOSE Admission Information HPI (per Admitting provider): 46 year old female who presents to the ER with chest pain. Patient reports she was at work today - she works for a [employer] company - when she developed left sided chest pain. 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 She describes it as sharp and a tightness. At it's worst she rates the pain #10/10. She had associated nausea, shortness of breath, and lightheadedness. Pain also radiated into the left arm and left side of her neck. Symptoms waxed and waned throughout the afternoon. She denies any specific causative or alleviating factors. Patient received nitro and is currently chest pain free. Patient noted increased BLLE and BL hand swelling a few days ago. She denies orthopnea. She started taking OTC Vit B6, Potassium, and Magnesium and has had improvement in the swelling. She reports she otherwise has been feeling well recently and tolerating daily activities without any problem. She denies abdominal pain, nausea, or vomiting. She notes mild diarrhea since starting the magnesium. No fever or chills. She denies any urinary symptoms. In the ER, patient was given nitro and is currently chest pain free. Initial trop is negative and EKG does not show any acute ST changes. Vitals are stable. Past Medical/Surgical History Medical Problems: (1) Adjustment disorder Status: Chronic (2) Asthma Status: Chronic (3) Depression Status: Chronic (4) Diverticulosis Colon (W/O Ment Of Hemorrhage) Status: Chronic (5) Drug overdose, intentional Status: Chronic (6) DWAYNE (generalized anxiety disorder) Status: Chronic (7) Gastroparesis Status: Chronic (8) HLD (hyperlipidemia) Status: Chronic (9) IBS (irritable bowel syndrome) Status: Chronic (10) Migraine Status: Chronic (11) Postconcussion Syndrome Status: Chronic (12) Posttraumatic Stress Disorder Status: Chronic (13) Suicide attempt by drug ingestion Status: Chronic (14) Tobacco abuse Status: Chronic Surgical Problems: (1) H/O colonoscopy Status: Chronic (2) H/O esophagogastroduodenoscopy Status: Chronic (3) H/O tubal ligation Status: Chronic (4) H/O unilateral oophorectomy Status: Chronic (5) History of partial colectomy Permanent Comment: due to recurrent diverticulitis Status: Chronic (6) Hx of appendectomy Status: Chronic (7) Hx of tonsillectomy Status: Chronic (8) S/P cholecystectomy Status: Chronic (9) S/P MARLON (total abdominal hysterectomy) Status: Chronic Family History FH: heart disease MOTHER ( from [place] at age 66) BROTHER (details unknown) Heart valve abnormality SISTER Social History Smoking Status: Current Every Day Smoker Alcohol Use: none Immunizations History of Tetanus Vaccine?: Yes Tetanus Immunization Date: Nov 28, 2011 Allergies Coded Allergies: Iodinated Diagnostic Agents (Verified Allergy, Intermediate, HIVES, 12/01/16 ) Tramadol (Verified Allergy, Intermediate, HIVES, 12/01/16) Penicillins (Verified Allergy, Mild, *, 12/01/16) Moxifloxacin (Verified Allergy, Unknown, UNKNOWN, 12/01/16) Sulfa Antibiotics (Verified Allergy, Unknown, unkn, 12/01/16) as a child Ketorolac Tromethamine (Verified Adverse Reaction, Intermediate, "TEARS STOMACH UP", 12/01/16) Fentanyl (Verified Adverse Reaction, Unknown, cramping and muscle spasms, 12/01/16) Prochlorperazine (Verified Adverse Reaction, Unknown, ANXIETY/JITTERY/ HYPOTENSION, 12/01/16) Home Medications Scheduled Cyclobenzaprine HCl (Cyclobenzaprine HCl), 10 MG PO HS Estradiol (Estradiol), 1 MG PO DAILY Famotidine (Famotidine), 20 MG PO BID Magnesium Oxide (Magnesium Oxide), 1 TAB PO DAILY Potassium Chloride Microencaps (Potassium Chloride Er), 1 TAB PO DAILY Pyridoxine (Vitamin B6), 1 TAB PO DAILY Venlafaxine Hcl (Effexor Extended Rel), 150 MG PO DAILY Venlafaxine Hcl (Venlafaxine Extended Rel), 37.5 MG PO DAILY Scheduled PRN Albuterol Hfa (Ventolin Hfa), 2 PUFFS INH Q4H PRN for Wheezing Clonazepam (Klonopin), 1 MG PO BID PRN for Anxiety Epinephrine (Epipen 2-Cisco), 0.3 MG IM UD PRN for ALLERGIC REACTION Fexofenadine Hcl (Hollie Allergy), 1 TAB PO DAILY PRN for allergies Review of Systems 10 point review of systems was completed with the pertinent positives and negatives noted per the HPI Physical Exam Vital Signs Date Time Temp Pulse Resp B/P Pulse Ox O2 Delivery O2 Flow Rate FiO2 01/26/17 18:08 79 18 130/89 96 01/26/17 17:09 89 20 126/91 94 Room Air 01/26/17 17:06 100 01/26/17 17:03 103 20 146/91 94 Room Air 01/26/17 15:53 36.7 106 20 149/78 99 Room Air General Appearance: no apparent distress Head: normocephalic Eyes: normal inspection ENT: hearing grossly normal Neck: supple, no JVD Respiratory/Chest: chest non-tender, lungs clear, normal breath sounds, no respiratory distress Cardiovascular: regular rate, rhythm, no edema, normal peripheral pulses Abdomen/GI: normal bowel sounds, non tender, soft Extremities/Musculoskelatal: normal inspection, no calf tenderness Neurologic/Psych: no motor/sensory deficits, alert, normal mood/affect, oriented x 3 Skin: normal color, warm/dry Diagnostics Laboratory Results Results Past 24 Hours Test 01/26/17 16:30 01/26/17 16:33 Range/Units White Blood Count 10.48 4.8-10.8 K/uL Red Blood Count 4.48 4.2-5.4 M/uL Hemoglobin 13.8 12.0-16.0 g/dL Hematocrit 39.6 37-47 % Mean Corpuscular Volume 88.4 80-100 fL Mean Corpuscular Hemoglobin 30.8 25-34 pg Mean Corpuscular Hemoglobin Concent 34.8 32-36 g/dl Platelet Count 273 130-400 K/uL Mean Platelet Volume 9.6 7.4-10.4 fL Neutrophils (%) (Auto) 56.1 % Lymphocytes (%) (Auto) 32.0 % Monocytes (%) (Auto) 5.3 % Eosinophils (%) (Auto) 5.7 % Basophils (%) (Auto) 0.6 % Neutrophils # (Auto) 5.88 1.4-6.5 K/uL Lymphocytes # (Auto) 3.35 1.2-3.4 K/uL Monocytes # (Auto) 0.56 0.11-0.59 K/uL Eosinophils # (Auto) 0.60 0-0.5 K/uL Basophils # (Auto) 0.06 0-0.2 K/uL RDW Standard Deviation 43.3 36.4-46.3 fL RDW Coefficient of Variation 13.3 11.5-14.5 % Immature Granulocyte % (Auto) 0.3 % Immature Granulocyte # (Auto) 0.03 0.00-0.02 K/uL Prothrombin Time 9.9 9.0-12.0 SECONDS Prothromb Time International Ratio 0.9 0.9-1.1 Activated Partial Thromboplast Time 29.2 21.0-31.0 SECONDS Partial Thromboplastin Ratio 1.1 Urine Color YELLOW Urine Appearance CLOUDY CLEAR Urine pH 6.0 4.5-7.5 Urine Specific [place] 1.012 1.000-1.030 Urine Protein NEG NEG Urine Glucose (UA) NEG NEG Urine Ketones NEG NEG Urine Occult Blood NEG NEG Urine Nitrite NEG NEG Urine Bilirubin NEG NEG Urine Urobilinogen NEG NEG Urine Leukocyte Esterase SMALL NEG Urine WBC (Auto) 10-30 0-5 /hpf Urine RBC (Auto) 0-4 0-4 /hpf Urine Hyaline Casts (Auto) 1-5 0-5 /lpf Urine Epithelial Cells (Auto) >30 0-5 /lpf Urine Bacteria (Auto) 2+ NEG Sodium Level 139 136-145 mmol/L Potassium Level 3.7 3.5-5.1 mmol/L Chloride Level 102 98-107 mmol/L Carbon Dioxide Level 28 21-32 mmol/L Anion Gap 9.0 3-11 mmol/L Blood Urea Nitrogen 10 7-18 mg/dl Creatinine 0.92 0.60-1.20 mg/dl Est Creatinine Clear Calc Drug Dose 88.4 ml/min Estimated GFR () 87.8 Estimated GFR (Non- 75.7 BUN/Creatinine Ratio 10.3 10-20 Random Glucose 105 70-99 mg/dl Calcium Level 8.4 8.5-10.1 mg/dl Total Bilirubin 0.3 0.2-1 mg/dl Direct Bilirubin < 0.1 0-0.2 mg/dl Aspartate Amino Transf (AST/SGOT) 32 15-37 U/L Alanine Aminotransferase (ALT/SGPT) 37 12-78 U/L Alkaline Phosphatase 76 45-117 U/L Total Protein 7.6 6.4-8.2 gm/dl Albumin 3.7 3.4-5.0 gm/dl Lipase 142 73-393 U/L Bedside D-Dimer 130 0-450 ng/mlFEU Bedside Troponin I 0.000 0-0.045 ng/ml Diagnostic Radiology CXR IMPRESSION: No active disease in the chest. Impression Assessment and Plan CHEST PAIN, R/O ACS - admit to tele - patient presenting with a few hours of constant left sided stabbing/pressure like chest pain with radiation into the neck and left arm - symptoms resolved with nitro - risk factors: tobacco use, + family history, on chronic estrogen therapy - initial trop negative and EKG without acute ST changes, will continue to cycle and if remain negative, will get exercise stress test in AM - check lipids in AM - hold estrogen - s/p ASA 325mg in ED, will continue with 81mg daily and start atorvastatin 80mg - PRN nitro and EKG with chest pain ANXIETY/DEPRESSION - stable, continue home meds GERD - continue H2 nneka DVT PROPHYLAXIS - SCDs DISPO - The patient will be placed as observation status for now until further work up is complete. I have seen and examined the patient and discussed the case with the provider above. I agree with the assessment and plan. Ms. Matthews has new onset chest pain which is intermittent throughout the day today, relieved completely with Nitroglycerin. She has RFs for CAD including active smoking, HTN and HLP along with a family h/o SCD in her 66 year old mother. Current cardiac workup including cardiac enzymes and EKG reveals no objective signs of ischemia. VSS and physical exam is unremarkable with no chest wall TTP. She was counseled to quit smoking and verbalized understanding with intent to comply. Will trend serial cardiac enzymes overnight and stress her with echo treadmill in am. Monitor on telemetry overnight. Mindy Jessica, DO Hospitalist Level of Care Telemetry Resuscitation Status FULL RESUSCITATION VTE Prophylaxis VTE Risk Assessment Done? Y/N: Yes Risk Level: Moderate Given or contraindicated: Enoxaparin (Lovenox)SQ Social Service Consult None Apply <Electronically signed by Ofelia BAHENA> Physical Exam (per Admitting): General Appearance: no apparent distress Head: normocephalic Eyes: normal inspection ENT: hearing grossly normal Neck: supple, no JVD Respiratory/Chest: chest non-tender, lungs clear, normal breath sounds, no respiratory distress Cardiovascular: regular rate, rhythm, no edema, normal peripheral pulses Abdomen/GI: normal bowel sounds, non tender, soft Extremities/Musculoskelatal: normal inspection, no calf tenderness Neurologic/Psych: no motor/sensory deficits, alert, normal mood/affect, oriented x 3 Skin: normal color, warm/dry Hospital Course CHEST PAIN, R/O ACS - patient presented with a few hours of constant left sided stabbing/pressure like chest pain with radiation into the neck and left arm - symptoms resolved with nitro - risk factors: tobacco use, + family history, on chronic estrogen therapy -Serial Lin are negative for any ACS - check lipids_elevated - hold estrogen -S/P Stress ECHO -negative -can go home ANXIETY/DEPRESSION - stable, continue home meds -no acute issue GERD - continue H2 nneka DVT PROPHYLAXIS - SCDs DISPO Discharge home today Total time spent on discharge = 35 minutes This includes examination of the patient, discharge planning, medication reconciliation, and communication with other providers. Discharge Instructions Date of Service Jan 27, 2017. Admission Reason for Admission: Chest Pain Left Side, Left Arm, Nausea Discharge Discharge Diagnosis / Problem: Chest pain-no ACS and negative stress ECHO Discharge Goals Goal(s): Prevent Disease Progression Activity Recommendations Activity Limitations: resume your previous activity . Instructions / Follow-Up Instructions / Follow-Up Dr Naik on 02/02/17 at 2:45 PM Current Hospital Diet Patient's current hospital diet: AHA Diet (Heart Healthy) Discharge Diet Recommended Diet: AHA Diet (Heart Healthy) Pending Studies Studies pending at discharge: no Laboratory Results Lipid Panel Test 01/27/17 04:08 Range/Units Triglycerides Level 243 H 0-150 mg/dl Cholesterol Level 269 H 0-200 mg/dl HDL Cholesterol 43 mg/dl Cholesterol/HDL Ratio 6.3 LDL Cholesterol, Calculated 177 mg/dl Medical Emergencies . Who to Call and When: Medical Emergencies: If at any time you feel your situation is an emergency, please call 911 immediately. . Non-Emergent Contact Non-Emergency issues call your: Primary Care Provider . Past History Medical & Surgical History: (1) Asthma (2) HLD (hyperlipidemia) (3) IBS (irritable bowel syndrome) (4) Hx of tonsillectomy (5) H/O tubal ligation (6) S/P MARLON (total abdominal hysterectomy) (7) History of partial colectomy . "Provider Documentation" section prepared by Taylor Hoffman. VTE Core Measure Inpt VTE Proph given/why not?: Enoxaparin (Lovenox)SQ <Electronically signed by Taylor Hoffman M.D.> Additional Copies To Holland Naik M.D.
[2017-08-06] MEDS ORDERED: QUET-115 PO (22:45)
[2017-08-29] MEDS ORDERED: PROM12.57 PO (21:51)
[2017-08-29] MEDS ORDERED: HYDR-5688 PO (21:51)
== END 2017-01-27 16:45 | disposition home or self-care (01) ==
LOC: ENRESERVTM → ENRESERVDT → C.EDB 15:51 → C.MED 18:23
PROVIDERS: ADMIT Hospitalist; ATTEND Internal Medicine
DX: R07.9 Chest pain, unspecified (principal); J45.909 Unspecified asthma, uncomplicated; E78.5 Hyperlipidemia, unspecified; K31.84 Gastroparesis; I25.10 Atherosclerotic heart disease of native coronary artery without angina pectoris; I10 Essential (primary) hypertension; F32.9 Major depressive disorder, single episode, unspecified; K21.9 Gastro-esophageal reflux disease without esophagitis; F17.200 Nicotine dependence, unspecified, uncomplicated; Z90.710 Acquired absence of both cervix and uterus; Z90.49 Acquired absence of other specified parts of digestive tract; Z82.49 Family history of ischemic heart disease and other diseases of the circulatory system

== ENCOUNTER 2017-02-12 16:45 | Emergency (ER) | payer OTHER ==
[~2017-02-12] VITALS: Ht 165.1 cm; Wt 93.0 kg
[~2017-02-12 16:45] MED LIST changes: +ASPEC81 PO; +CLON1TAB3 PO; +CYCL10TA7 PO; +EFFSR150 PO; +EPP3/2 IM; +FAMO1TAB47 PO; +FEXO1TAB49 PO; -LACTCAP PO; +LPT40 PO; +MAGN400C2 PO; -METR-163 PO; +POTA20TA13 PO; -PROM25IN13 PO; -PROM25SU28 PR; +PYRI100T4 PO; +VNTHFA/IN INH
[2017-02-12 16:59] VITALS: TEMP 36.7; Ht 165.1 cm; Wt 93.0 kg
[2017-02-12] MEDS ORDERED: ATOR-24 PO (17:31)
[2017-02-12] MEDS ORDERED: ASPI81TA28 PO (17:31)
[2017-02-12] MEDS ORDERED: MAGN250T8 PO (17:31)
[2017-02-12] MEDS ORDERED: SODIUM CHLORIDE 0.9% 1000ML 1,000 ML IV STA (17:32)
[2017-02-12] MEDS ORDERED: SODIUM CHLORIDE 0.9% 1000ML 250 ML IV STA (17:32)
--- NOTE | 2017-02-12 17:36 | EMERGENCY ROOM VISIT NOTE ---
History Report prepared by Ashok: Chandler Oliveira Under the Supervision of: Dr. Jesse Anderson M.D. First contact with patient: 17:16 Chief Complaint: SWELLING TO EXTREMITY Stated Complaint: CHEST PAIN,LEG PAIN(SWELLING), LOWER BACK PAIN History of Present Illness The patient is a 46 year old female who presents to the Emergency Room with complaints of persistent burning in her chest that started today. The patient also complains of middle lower back pain that radiates towards that abdomen and bilateral leg swelling since yesterday. She has never had these symptoms before. The patient is feeling nauseous. She denies fevers, vomiting, diarrhea, or burning with urination. She does feel some pressure with urination. The patient was admitted two weeks ago and had a negative stress echocardiogram. She has a history of depression, which has been stable. She denies recent suicidal or homicidal ideations. Source of History: patient Onset: today Position: chest Quality: burning Timing: other (persistent) Associated Symptoms: + back pain, + nausea, + urinary symptoms (pressure, not burning), No diarrhea, No fevers, No vomiting Review of Systems See HPI for pertinent positives & negatives. A total of 10 systems reviewed and were otherwise negative. Past Medical & Surgical Medical Problems: (1) Adjustment disorder (2) Asthma (3) Depression (4) Diverticulosis Colon (W/O Ment Of Hemorrhage) (5) Drug overdose, intentional (6) DWAYNE (generalized anxiety disorder) (7) Gastroparesis (8) HLD (hyperlipidemia) (9) IBS (irritable bowel syndrome) (10) Migraine (11) Postconcussion Syndrome (12) Posttraumatic Stress Disorder (13) Suicide attempt by drug ingestion (14) Tobacco abuse Surgical Problems: (1) H/O colonoscopy (2) H/O esophagogastroduodenoscopy (3) H/O tubal ligation (4) H/O unilateral oophorectomy (5) History of partial colectomy (6) Hx of appendectomy (7) Hx of tonsillectomy (8) S/P cholecystectomy (9) S/P MARLON (total abdominal hysterectomy) Old medical records were reviewed. Nurse's notes were reviewed and I agree with. Family History FH: heart disease MOTHER ( from [place] at age 66) BROTHER (details unknown) Heart valve abnormality SISTER Social History Smoking Status: Current Every Day Smoker Alcohol Use: none Housing Status: lives with significant other Current/Historical Medications Scheduled Aspirin (Aspirin Ec), 81 MG PO QAM Atorvastatin (Lipitor), 40 MG PO HS Cyclobenzaprine HCl (Cyclobenzaprine HCl), 10 MG PO HS Famotidine (Famotidine), 20 MG PO BID Magnesium Oxide (Mg Supplement (Magnesium), 250 MG PO QAM Potassium Chloride Microencaps (Potassium Chloride Er), 1 TAB PO DAILY Pyridoxine (Vitamin B6), 1 TAB PO DAILY Venlafaxine Hcl (Effexor Extended Rel), 150 MG PO DAILY Venlafaxine Hcl (Venlafaxine Extended Rel), 37.5 MG PO DAILY Scheduled PRN Albuterol Hfa (Ventolin Hfa), 2 PUFFS INH Q4H PRN for Wheezing Clonazepam (Klonopin), 1 MG PO BID PRN for Anxiety Epinephrine (Epipen 2-Cisco), 0.3 MG IM UD PRN for ALLERGIC REACTION Fexofenadine Hcl (Hollie Allergy), 1 TAB PO DAILY PRN for allergies Hydrocodone/Acetaminophen 5MG/325MG ([place] 5MG/325MG), 1 TABLET PO Q6 PRN for Pain Allergies Coded Allergies: Ibuprofen (Verified Allergy, Severe, SOB-HIVES, 02/12/17) Iodinated Diagnostic Agents (Verified Allergy, Intermediate, HIVES, ) Tramadol (Verified Allergy, Intermediate, HIVES, 02/12/17) Penicillins (Verified Allergy, Mild, *, 02/12/17) Moxifloxacin (Verified Allergy, Unknown, UNKNOWN, 02/12/17) Sulfa Antibiotics (Verified Allergy, Unknown, unkn, 02/12/17) as a child Ketorolac Tromethamine (Verified Adverse Reaction, Intermediate, "TEARS STOMACH UP", 02/12/17) Fentanyl (Verified Adverse Reaction, Unknown, cramping and muscle spasms, 02/12/17) Prochlorperazine (Verified Adverse Reaction, Unknown, ANXIETY/JITTERY/ HYPOTENSION, 02/12/17) Physical Exam Vital Signs Date Time Temp Pulse Resp B/P Pulse Ox O2 Delivery O2 Flow Rate FiO2 02/12/17 20:25 87 16 147/96 100 02/12/17 18:40 85 16 126/85 100 Room Air 02/12/17 16:59 36.7 94 18 149/85 98 Room Air Physical Exam General: Non ill appearing middle aged female in no acute distress, breathing comfortably on room air. Normal speech HEENT: Normal cephalic atraumatic. Pupils are equal round and reactive to light. Extraocular movements are intact. Oropharynx is pink with moist mucous membranes. No swelling of the mouth lips or tongue. Neck: Supple with a midline trachea. No meningeal signs or stiffness, no JVD or bruits. No Stridor. Chest: Clear to auscultation bilaterally. No wheezes or rhonchi. No increased work of breathing. Heart: regular rate and rhythm. Abdomen: Soft nontender, nondistended without rebound guarding or rigidity. Extremities: No cyanosis or clubbing. No calf tenderness or assymetry. Trace pedal edema bilaterally. Spine/Back. Mildly diffusely tender over lower back. No CVA tenderness Skin: Good turgor without rashes. Neurologic exam: Cranial nerves two through 12 are intact. Motor and sensation are intact and symmetrical throughout. Medical Decision & Procedures ER Provider Diagnostic Interpretation: X-ray results as stated below per interpretation by me and the radiologist: CHEST ONE VIEW PORTABLE HISTORY: Atypical CHEST PAIN COMPARISON: Chest 01/26/2017. FINDINGS: The lungs are clear. Cardiac silhouette is normal in size. No pleural effusions. No pneumothorax. IMPRESSION: No acute process. Electronically signed by: Artur Dick M.D. 02/12/2017 6:00 PM Dictated Date/Time: 02/12/2017 6:00 PM Laboratory Results 02/12/17 18:00 Red Blood Count 4.71, Mean Corpuscular Volume 90.7, Mean Corpuscular Hemoglobin 29.5, Mean Corpuscular Hemoglobin Concent 32.6, Mean Platelet Volume 9.4, Neutrophils (%) (Auto) 53.9, Lymphocytes (%) (Auto) 31.9, Monocytes (%) (Auto) 8.7, Eosinophils (%) (Auto) 4.9, Basophils (%) (Auto) 0.4, Neutrophils # (Auto) 5.62, Lymphocytes # (Auto) 3.33, Monocytes # (Auto) 0.91, Eosinophils # (Auto) 0.51, Basophils # (Auto) 0.04 02/12/17 18:00 Test 02/12/17 18:00 02/12/17 18:10 02/12/17 18:13 White Blood Count 10.43 K/uL (4.8-10.8) Red Blood Count 4.71 M/uL (4.2-5.4) Hemoglobin 13.9 g/dL (12.0-16.0) Hematocrit 42.7 % (37-47) Mean Corpuscular Volume 90.7 fL (80-100) Mean Corpuscular Hemoglobin 29.5 pg (25-34) Mean Corpuscular Hemoglobin Concent 32.6 g/dl (32-36) Platelet Count 262 K/uL (130-400) Mean Platelet Volume 9.4 fL (7.4-10.4) Neutrophils (%) (Auto) 53.9 % Lymphocytes (%) (Auto) 31.9 % Monocytes (%) (Auto) 8.7 % Eosinophils (%) (Auto) 4.9 % Basophils (%) (Auto) 0.4 % Neutrophils # (Auto) 5.62 K/uL (1.4-6.5) Lymphocytes # (Auto) 3.33 K/uL (1.2-3.4) Monocytes # (Auto) 0.91 K/uL (0.11-0.59) Eosinophils # (Auto) 0.51 K/uL (0-0.5) Basophils # (Auto) 0.04 K/uL (0-0.2) RDW Standard Deviation 44.5 fL (36.4-46.3) RDW Coefficient of Variation 13.5 % (11.5-14.5) Immature Granulocyte % (Auto) 0.2 % Immature Granulocyte # (Auto) 0.02 K/uL (0.00-0.02) Anion Gap 7.0 mmol/L (3-11) Est Creatinine Clear Calc Drug Dose 92.0 ml/min Estimated GFR () 92.6 Estimated GFR (Non- 79.9 BUN/Creatinine Ratio 8.5 (10-20) Calcium Level 8.9 mg/dl (8.5-10.1) Total Bilirubin 0.2 mg/dl (0.2-1) Direct Bilirubin < 0.1 mg/dl (0-0.2) Aspartate Amino Transf (AST/SGOT) 21 U/L (15-37) Alanine Aminotransferase (ALT/SGPT) 38 U/L (12-78) Alkaline Phosphatase 81 U/L (45-117) Total Protein 8.1 gm/dl (6.4-8.2) Albumin 4.0 gm/dl (3.4-5.0) Lipase 132 U/L (73-393) Thyroid Stimulating Hormone (TSH) 1.660 uIu/ml (0.300-4.500) Human Chorionic Gonadotropin, Qual NEG (NEG) Urine Color YELLOW Urine Appearance CLEAR (CLEAR) Urine pH 6.5 (4.5-7.5) Urine Specific [place] 1.005 (1.000-1.030) Urine Protein NEG (NEG) Urine Glucose (UA) NEG (NEG) Urine Ketones NEG (NEG) Urine Occult Blood NEG (NEG) Urine Nitrite NEG (NEG) Urine Bilirubin NEG (NEG) Urine Urobilinogen NEG (NEG) Urine Leukocyte Esterase NEG (NEG) Bedside Troponin I 0.020 ng/ml (0-0.045) UM-Zpb-S-Type Natriuretic Peptide < 15 pg/ml (0-450) Date/Time Source Procedure Growth Status 02/12/17 18:10 Urine , Clean Catch Urine Culture - Final Gardnerella-Like Bacilli Complete Laboratory studies as stated above per my review. Medications Administered Medications (Trade) Dose Ordered Sig/Lorna Route Start Time Stop Time Status Last Admin Dose Admin Sodium Chloride 250 ml @ 999 mls/hr Q16M STAT IV 02/12/17 17:32 02/12/17 17:47 DC 02/12/17 17:32 999 MLS/HR Sodium Chloride 1,000 ml @ 100 mls/hr Q10H STAT IV 02/12/17 17:32 02/12/17 20:31 DC 02/12/17 18:51 100 MLS/HR Promethazine HCl/ Sodium Chloride (Phenergan Inj/ Nss 50ml) 50.5 ml @ 204 mls/hr NOW STAT IV 02/12/17 18:15 02/12/17 18:29 DC 02/12/17 18:48 204 MLS/HR Morphine Sulfate (MoRPHine SULFATE INJ) 4 mg NOW STAT IV 02/12/17 18:15 02/12/17 18:16 DC 02/12/17 18:51 4 MG Morphine Sulfate (MoRPHine SULFATE INJ) 4 mg NOW STAT IV 02/12/17 19:51 02/12/17 19:52 DC 02/12/17 19:56 4 MG Acetaminophen/ Hydrocodone Bitart ([place] 5/325mg Home Pack) 1 homepack UD ONCE PO 02/12/17 20:00 02/12/17 20:01 DC 02/12/17 20:23 1 HOMEPACK ECG Indication: chest pain Rate (beats per minute): 76 Rhythm: normal sinus Findings: no acute ischemic change, no ectopy Comparison ECG Date: 27 January 2017 Change: no significant change ED Course 1716: Past medical records reviewed. The patient was evaluated in room B6, and a complete history and physical examination were performed. 1731: NSS 1000 ml @ 100 mls/hr, NSS 250 ml @ 999 mls/hr. 1812: Updated the patient. 1814: Morphine Sulfate 4 mg IV, Promethazine HCl 12.5 mg / NSS 50.5 ml @ 204 mls /hr. 1949: The patient requested more pain medication. She declined a CT scan as she has had multiple in the past. 1950: Morphine Sulfate 4 mg IV. 1999: [place] 5/325 mg PO homepack. Medical Decision Differential diagnosis includes musculoskeletal pain, anxiety, cardiac disease, CHF, thyroid disease, kidney disease, electrolyte or metabolic abnormality. This patient comes in as described above she has multiple different complaints she has a back pain chest pain leg swelling achiness. An extensive workup was done. She does have a history of psychiatric problems but says this is stable. Denies suicidal ideations or overdose. IV access established EKG and blood work was obtained. She asked for some for pain was given morphine 4 mg IV and Phenergan 12.5 mg IV she's had these before without difficulties. EKG shows no ischemic changes or ectopy. Her symptoms do not suggest acute coronary syndrome or arrhythmia. She has no white count or fever to suggest infection. She has no acute electrode or metabolic abnormalities. Her urinalysis did not suggest UTI. She did require additional morphine. His symptoms her symptoms are mostly back pain. It may be musculoskeletal. She is nothing to suggest cauda equina syndrome or infection. She will be discharged to home and she is feeling better. Abdomen is benign. She will return if: increasing pain, worsening of symptoms, fever or chills, any new problems or concerns Impression Primary Impression: Low back pain Additional Impressions: Precordial chest pain Leg swelling Scribe Attestation The scribe's documentation has been prepared under my direction and personally reviewed by me in its entirety. I confirm that the note above accurately reflects all work, treatment, procedures, and medical decision making performed by me. Departure Information Dispostion Home / Self-Care Prescriptions Hydrocodone/Acetaminophen 5MG/325MG ([place] 5MG/325MG) Tab 1 TABLET PO Q6 Y for Pain, #14 TAB Prov: Jesse Anderson M.D. 02/12/17 Referrals Holland Naik M.D. (PCP) Forms HOME CARE DOCUMENTATION FORM, IMPORTANT VISIT INFORMATION, WORK / SCHOOL INSTRUCTIONS Patient Instructions My [facility] Additional Instructions Rest. Drink plenty of fluids. Return if: Increasing pain, worsening of symptoms, fever or chills, numbness or weakness, any new problems or concerns. For pain may use [place] one or 2 pills every 4-6 hours as needed [place] contains Tylenol/acetaminophen and do not take with other medications that contain Tylenol/acetaminophen. Follow-up with your doctor on Monday for recheck Problem Qualifiers
--- NOTE | 2017-02-12 18:03 | DIAGNOSTIC IMAGING REPORT ---
CHEST ONE VIEW PORTABLE HISTORY: Atypical CHEST PAIN COMPARISON: Chest 01/26/2017. FINDINGS: The lungs are clear. Cardiac silhouette is normal in size. No pleural effusions. No pneumothorax. IMPRESSION: No acute process. Electronically signed by: Artur Dick M.D. 02/12/2017 6:00 PM Dictated Date/Time: 02/12/2017 6:00 PM
[2017-02-12] MEDS ORDERED: MoRPHine SULFATE 4 MG/ML 1 ML CARP\\VIAL IV STA ×2 (18:15→19:51)
[2017-02-12] MEDS ORDERED: PROMETHAZINE HCL INJ 12.5 MG in SODIUM CHLORIDE 0.9% 50ML 50 ML IV STA (18:15)
[2017-02-12 18:19] LABS: BASO % 0.4 %; BASO ABS # 0.04 K/uL (0-0.2); COMPLETE YES; EOS % 4.9 %; HEMATOCRIT 42.7 % (37-47); IG% 0.2 %; LYMPH % 31.9 %; LYMPH ABS # 3.33 K/uL (1.2-3.4); MEAN CELL VOLUME 90.7 fL (80-100); MEAN CORPUSCULAR HEMOGLOBIN 29.5 pg (25-34); MEAN CORPUSCULAR HGB CONC 32.6 g/dl (32-36); MEAN PLATELET VOLUME 9.4 fL (7.4-10.4); MONO % 8.7 %; NEUT % 53.9 %; PLATELET COUNT 262 K/uL (130-400); RED BLOOD COUNT 4.71 M/uL (4.2-5.4); WHITE BLOOD COUNT 10.43 K/uL (4.8-10.8)
[2017-02-12 18:33] LABS: POINT OF CARE PRO-BNP < 15 pg/ml (0-450)
[2017-02-12 18:35] LABS: ALT/SGPT 38 U/L (12-78); AST/SGOT 21 U/L (15-37); BLOOD UREA NITROGEN 7 mg/dl (7-18); BUN/CREATININE RATIO 8.5 (10-20); CALCIUM 8.9 mg/dl (8.5-10.1); CARBON DIOXIDE 30 mmol/L (21-32); CHLORIDE 105 mmol/L (98-107); CREATININE 0.88 mg/dl (0.60-1.20); GLUCOSE 77 mg/dl (70-99); POTASSIUM 3.7 mmol/L (3.5-5.1); SODIUM 142 mmol/L (136-145)
[2017-02-12 18:40] LABS: PREG INTERNAL NEGATIVE QC NEG CLEAR BACKGROUND; PREG INTERNAL POSITIVE QC POS CONTROL LINE
[2017-02-12 18:41] LABS: MANUAL MICROSCOPIC REQUIRED? NO; REVIEW REQ? NO; URINE APPEARANCE CLEAR (CLEAR); URINE BILIRUBIN NEG (NEG); URINE COLOR YELLOW; URINE NITRITE NEG (NEG); URINE PH 6.5 (4.5-7.5); URINE SPECIFIC GRAVITY 1.005 (1.000-1.030); UROBILINOGEN NEG (NEG)
[2017-02-12 18:46] LABS: ALKALINE PHOSPHATASE 81 U/L (45-117)
[2017-02-12] MEDS ORDERED: HYDR-5688 PO (19:54)
[2017-02-12] MEDS ORDERED: NORCO 5/325MG HOME PACK PO ONE (20:00)
[2017-02-12 20:25] VITALS: BP 147/96; PULSE 87; O2SAT 100
[2017-08-06] MEDS ORDERED: QUET-115 PO (22:45)
[2017-08-29] MEDS ORDERED: PROM12.57 PO (21:51)
[2017-08-29] MEDS ORDERED: HYDR-5688 PO (21:51)
== END 2017-02-12 20:25 | disposition home or self-care (01) ==
LOC: C.EDB 16:47
DX: M54.5 Low back pain (principal); R07.2 Precordial pain; M79.89 Other specified soft tissue disorders; J45.909 Unspecified asthma, uncomplicated; E78.5 Hyperlipidemia, unspecified; F32.9 Major depressive disorder, single episode, unspecified; F41.1 Generalized anxiety disorder; F17.200 Nicotine dependence, unspecified, uncomplicated; Z91.5 Personal history of self-harm; Z98.51 Tubal ligation status; Z90.721 Acquired absence of ovaries, unilateral; Z90.49 Acquired absence of other specified parts of digestive tract; Z90.710 Acquired absence of both cervix and uterus; Z90.89 Acquired absence of other organs; Z98.890 Other specified postprocedural states; Z82.49 Family history of ischemic heart disease and other diseases of the circulatory system; Z79.82 Long term (current) use of aspirin; Z79.899 Other long term (current) drug therapy

== ENCOUNTER 2017-03-20 20:01 | Emergency (ER) | payer OTHER ==
[~2017-03-20] VITALS: Ht 165.1 cm; Wt 93.2 kg
[~2017-03-20 20:01] MED LIST changes: -ASPEC81 PO; +ASPI81TA28 PO; +ATOR-24 PO; -ESTRD2 PO; +HYDR-5688 PO; -LPT40 PO; +MAGN250T8 PO; -MAGN400C2 PO
[2017-03-20 20:16] VITALS: Ht 165.1 cm; Wt 93.2 kg
[2017-03-20] MEDS ORDERED: MoRPHine SULFATE 10 MG/ML CARP/VIAL IM STA ×2 (21:07→22:40)
--- NOTE | 2017-03-20 21:45 | DIAGNOSTIC IMAGING REPORT ---
RIGHT HIP UNILATERAL 2 VIEWS CLINICAL HISTORY: Right hip pain. COMPARISON: CT of the abdomen and pelvis November 04, 2016. FINDINGS: Alignment of the right hip is anatomic. No acute fracture or suspicious lesion is present. Right hip joint space is preserved. There is mild osteophytosis of the right hip. IMPRESSION: 1. No acute fracture or dislocation of the right hip. 2. Mild osteophytosis of the right hip. Electronically signed by: Henry Epstein M.D. 03/20/2017 9:44 PM Dictated Date/Time: 03/20/2017 9:43 PM
--- NOTE | 2017-03-20 22:52 | EMERGENCY ROOM VISIT NOTE ---
History First contact with patient: 20:29 Chief Complaint: HIP PAIN Stated Complaint: R HIP PAIN LOUD POP EXTREME PAIN History of Present Illness The patient is a 46 year old female who presents to the Emergency Room with complaints of right hip pain. The patient reports that she has had issues with her right hip for the past one month. She has been seeing her primary care provider and is awaiting an orthopedic referral. She states that her primary care provider has been providing pain management with hydrocodone. She states she does have some relief with this. She has had x-rays and is scheduled for an MRI prior to her orthopedic referral. She states that tonight while doing laundry, she bent over and heard a loud pop in the right hip. She has had severe pain since then. She has had difficulty walking due to the pain. She rates her discomfort a 9/10. She did not take any of her pain medication at home. The patient denies any numbness or weakness. She denies any back pain. She denies any trauma to the hip. Review of Systems A complete 6 point review of systems was reviewed with the patient with pertinent positives and negatives as per history of present illness. All else were negative. Past Medical/Surgical History Medical Problems: (1) Adjustment disorder (2) Asthma (3) Depression (4) Diverticulosis Colon (W/O Ment Of Hemorrhage) (5) Drug overdose, intentional (6) DWAYEN (generalized anxiety disorder) (7) Gastroparesis (8) HLD (hyperlipidemia) (9) IBS (irritable bowel syndrome) (10) Migraine (11) Postconcussion Syndrome (12) Posttraumatic Stress Disorder (13) Suicide attempt by drug ingestion (14) Tobacco abuse Surgical Problems: (1) H/O colonoscopy (2) H/O esophagogastroduodenoscopy (3) H/O tubal ligation (4) H/O unilateral oophorectomy (5) History of partial colectomy (6) Hx of appendectomy (7) Hx of tonsillectomy (8) S/P cholecystectomy (9) S/P MARLON (total abdominal hysterectomy) Family History FH: heart disease MOTHER ( from [place] at age 66) BROTHER (details unknown) Heart valve abnormality SISTER Social History Smoking Status: Current Every Day Smoker Alcohol Use: none Housing Status: lives with significant other Current/Historical Medications Scheduled Aspirin (Aspirin Ec), 81 MG PO QAM Atorvastatin (Lipitor), 40 MG PO HS Cyclobenzaprine HCl (Cyclobenzaprine HCl), 10 MG PO HS Famotidine (Famotidine), 20 MG PO BID Magnesium Oxide (Mg Supplement (Magnesium), 250 MG PO QAM Potassium Chloride Microencaps (Potassium Chloride Er), 1 TAB PO DAILY Pyridoxine (Vitamin B6), 1 TAB PO DAILY Venlafaxine Hcl (Effexor Extended Rel), 150 MG PO DAILY Venlafaxine Hcl (Venlafaxine Extended Rel), 37.5 MG PO DAILY Scheduled PRN Albuterol Hfa (Ventolin Hfa), 2 PUFFS INH Q4H PRN for Wheezing Clonazepam (Klonopin), 1 MG PO BID PRN for Anxiety Epinephrine (Epipen 2-Cisco), 0.3 MG IM UD PRN for ALLERGIC REACTION Fexofenadine Hcl (Hollie Allergy), 1 TAB PO DAILY PRN for allergies Hydrocodone/Acetaminophen 5MG/325MG ([place] 5MG/325MG), 1 TABLET PO Q6 PRN for Pain Allergies Coded Allergies: Ibuprofen (Verified Allergy, Severe, SOB-HIVES, 02/12/17) Iodinated Diagnostic Agents (Verified Allergy, Intermediate, HIVES, ) Tramadol (Verified Allergy, Intermediate, HIVES, 02/12/17) Penicillins (Verified Allergy, Mild, *, 02/12/17) Moxifloxacin (Verified Allergy, Unknown, UNKNOWN, 02/12/17) Sulfa Antibiotics (Verified Allergy, Unknown, unkn, 02/12/17) as a child Ketorolac Tromethamine (Verified Adverse Reaction, Intermediate, "TEARS STOMACH UP", 02/12/17) Fentanyl (Verified Adverse Reaction, Unknown, cramping and muscle spasms, 02/12/17) Prochlorperazine (Verified Adverse Reaction, Unknown, ANXIETY/JITTERY/ HYPOTENSION, 02/12/17) Physical Exam Vital Signs Date Time Temp Pulse Resp B/P Pulse Ox O2 Delivery O2 Flow Rate FiO2 03/20/17 22:59 36.7 95 18 132/81 96 03/20/17 22:58 95 18 132/81 96 Room Air 03/20/17 20:16 36.7 103 18 140/88 96 Room Air Physical Exam VITALS: Vitals are noted on the nurse's note and reviewed by myself. Vital signs stable. GENERAL: This is a 46-year-old female, in no acute distress, nondiaphoretic, well-developed well-nourished. SKIN: No erythema or ecchymosis. HEART: Regular rate and rhythm without murmurs gallops or rubs. LUNGS: Clear to auscultation bilaterally without wheezes, rales or rhonchi. MUSCULOSKELETAL: There is vague, diffuse tenderness over the right hip. There is no focal tenderness. Full range of motion of the hip. NEURO: Patient was alert and oriented to person place and time. Normal sensation to light and sharp touch. Medical Decision & Procedures ER Provider Diagnostic Interpretation: RIGHT HIP UNILATERAL 2 VIEWS CLINICAL HISTORY: Right hip pain. COMPARISON: CT of the abdomen and pelvis November 04, 2016. FINDINGS: Alignment of the right hip is anatomic. No acute fracture or suspicious lesion is present. Right hip joint space is preserved. There is mild osteophytosis of the right hip. IMPRESSION: 1. No acute fracture or dislocation of the right hip. 2. Mild osteophytosis of the right hip. Medications Administered Medications (Trade) Dose Ordered Sig/Lorna Route Start Time Stop Time Status Last Admin Dose Admin Morphine Sulfate (MoRPHine SULFATE INJ) 6 mg NOW STAT IM 03/20/17 21:07 03/20/17 21:09 DC 03/20/17 21:42 6 MG Morphine Sulfate (MoRPHine SULFATE INJ) 6 mg NOW STAT IM 03/20/17 22:40 03/20/17 22:41 DC 03/20/17 22:47 6 MG Medical Decision Differential diagnosis includes osteoarthritis, trochanteric bursitis, lumbar radiculopathy, rheumatoid process, septic arthritis, among others. The patient was evaluated as above. She complains of right hip discomfort and has only vague tenderness on physical examination. X-rays of the right hip were performed and read by radiology with no acute findings. The patient was initially treated with 6 mg morphine intramuscularly with moderate pain relief. She did request an additional dose of pain medication on evaluation. She was given another 6 mg of morphine IM. I feel she likely has a trochanteric bursitis or arthritis and will benefit from follow-up with orthopedics. The patient receives hydrocodone regularly from her primary care provider. I did suggest a course of steroids or anti-inflammatories, but the patient reported adverse reactions to both of these medications. I recommended that she continue follow-up as scheduled. She verbalized understanding of my assessment and treatment plan and was discharged home in good condition. Impression Primary Impression: Right hip pain Departure Information Dispostion Home / Self-Care Condition GOOD Referrals Holland Naik M.D. (PCP) Patient Instructions My [facility] Additional Instructions For pain control, you can use the following [id number] medicines (if >12 yo): - Regular strength (325mg/tab) Tylenol (acetaminophen) 2 tabs every 4-6 hours as needed. Do not exceed 12 tablets in a 24 hour period. Avoid taking more than 4 grams (4000 mg) of Tylenol per day. This includes any other sources of acetaminophen you may take on a regular basis. - Regular strength (200 mg/tab) Advil (ibuprofen) 1-2 tabs every 4-6 hours as needed. Do not exceed a dose of 3200 mg per day. Follow-up with your primary care provider as needed.
[2017-03-20 22:59] VITALS: BP 132/81; PULSE 95; TEMP 36.7; O2SAT 96
[2017-08-06] MEDS ORDERED: QUET-115 PO (22:45)
[2017-08-29] MEDS ORDERED: PROM12.57 PO (21:51)
[2017-08-29] MEDS ORDERED: HYDR-5688 PO (21:51)
== END 2017-03-20 22:59 | disposition home or self-care (01) ==
LOC: C.EDB 20:02 → C.EDD 22:59
DX: M25.551 Pain in right hip (principal); J45.909 Unspecified asthma, uncomplicated; F41.1 Generalized anxiety disorder; E78.5 Hyperlipidemia, unspecified; F32.9 Major depressive disorder, single episode, unspecified; F17.200 Nicotine dependence, unspecified, uncomplicated; Z87.820 Personal history of traumatic brain injury; Z91.5 Personal history of self-harm; Z86.59 Personal history of other mental and behavioral disorders; Z98.51 Tubal ligation status; Z98.890 Other specified postprocedural states; Z90.721 Acquired absence of ovaries, unilateral; Z90.89 Acquired absence of other organs; Z90.49 Acquired absence of other specified parts of digestive tract; Z90.710 Acquired absence of both cervix and uterus; Z82.49 Family history of ischemic heart disease and other diseases of the circulatory system; Z79.82 Long term (current) use of aspirin; Z79.899 Other long term (current) drug therapy

== ENCOUNTER 2017-04-19 17:55 | Emergency (ER) | payer OTHER ==
[~2017-04-19] VITALS: Ht 165.1 cm; Wt 93.8 kg
[2017-04-19 18:15] VITALS: TEMP 36.7; O2SAT 98; Ht 165.1 cm; Wt 93.8 kg
[2017-04-19] MEDS ORDERED: MoRPHine SULFATE 4 MG/ML 1 ML CARP\\VIAL IV STA ×2 (18:34→20:01)
[2017-04-19] MEDS ORDERED: SODIUM CHLORIDE 0.9% 1000ML 2,000 ML IV STA (18:34)
[2017-04-19 19:09] LABS: URINE APPEARANCE CLEAR (CLEAR); URINE BILIRUBIN NEG (NEG); URINE COLOR YELLOW; URINE EPITHELIAL CELL AUTO >30 /lpf (0-5); URINE NITRITE NEG (NEG); UROBILINOGEN NEG (NEG); ZZUR CULT IF INDIC CLEAN CATCH NO
[2017-04-19 19:11] LABS: MANUAL MICROSCOPIC REQUIRED? NO; REVIEW REQ? NO
[2017-04-19 19:19] LABS: BASO % 0.5 %; BASO ABS # 0.05 K/uL (0-0.2); COMPLETE YES; EOS % 6.2 %; HEMATOCRIT 44.3 % (37-47); IG% 0.2 %; LYMPH % 43.4 %; LYMPH ABS # 4.11 K/uL (1.2-3.4); MEAN CELL VOLUME 89.5 fL (80-100); MEAN CORPUSCULAR HEMOGLOBIN 27.9 pg (25-34); MEAN CORPUSCULAR HGB CONC 31.2 g/dl (32-36); MEAN PLATELET VOLUME 9.3 fL (7.4-10.4); MONO % 5.7 %; PLATELET COUNT 289 K/uL (130-400); RED BLOOD COUNT 4.95 M/uL (4.2-5.4); WHITE BLOOD COUNT 9.47 K/uL (4.8-10.8)
[2017-04-19 19:40] LABS: ALT/SGPT 39 U/L (12-78); BLOOD UREA NITROGEN 9 mg/dl (7-18); BUN/CREATININE RATIO 9.8 (10-20); CALCIUM 9.1 mg/dl (8.5-10.1); CARBON DIOXIDE 30 mmol/L (21-32); CHLORIDE 106 mmol/L (98-107); CREATININE 0.93 mg/dl (0.60-1.20); GLUCOSE 88 mg/dl (70-99); POTASSIUM 3.8 mmol/L (3.5-5.1); SODIUM 141 mmol/L (136-145)
[2017-04-19 19:42] LABS: ALKALINE PHOSPHATASE 83 U/L (45-117); AST/SGOT 21 U/L (15-37)
--- NOTE | 2017-04-19 20:01 | DIAGNOSTIC IMAGING REPORT ---
ABDOMEN 2 VIEWS HISTORY: Generalized abdominal pain. COMPARISON: Chest and abdominal series 12/01/2016. FINDINGS: Cholecystectomy. Suture material within the deep pelvis consistent with prior rectosigmoid anastomosis. Pelvic phleboliths remain unchanged. No definite renal or ureteral calculi. Punctate calcifications overlying the kidneys are not confirmed on both views and may be due to the overlapping bowel contents. Moderate well-formed stool seen within the colon. This remains unchanged. No pneumoperitoneum. No pneumatosis. The bowel gas pattern is unremarkable. No evidence for bowel obstruction.. IMPRESSION: 1. No evidence for bowel obstruction. 2. Moderate well-formed stool seen within the colon, unchanged. Electronically signed by: Artur Dick M.D. 04/19/2017 8:00 PM Dictated Date/Time: 04/19/2017 7:58 PM
[2017-04-19 20:15] VITALS: BP 148/103; PULSE 102
--- NOTE | 2017-04-19 20:41 | EMERGENCY ROOM VISIT NOTE ---
History Report prepared by Kahlilibsergey: Chandler Oliveira Under the Supervision of: Dr. Juan David Kruger D.O. First contact with patient: 18:24 Chief Complaint: DIARRHEA Stated Complaint: EXTREME FATIGUE, ABDOMINAL PAIN,NAUSEA,LIGHTHEADED History of Present Illness The patient is a 46 year old female with a history of C. Diff. who presents to the Emergency Room with complaints of worsening diarrhea for the past five days. The patient describes "extreme" diarrhea that occurs between 15 times per day. The patient's stools are mucousy, malodorous, and do not contain blood. She usually has diarrhea shortly after eating. The patient has pain in her lower abdomen. She feels fatigued, lightheaded, and nauseous. She has been taking Zofran. The patient has had C. Diff. three times before with the last time being this past September. At that time, the patient was on a combination of Flagyl and Vancomycin. The patient notes that it feels like she has C. Diff. again. The patient was recently on Azithromycin for a sinus infection. She denies recent travel out of the country and has not drank from any streams. The patient has a history of diverticulitis. She is s/p colonic resection, cholecystectomy, appendectomy, and hysterectomy. Patient denies headache, change in vision, fevers, chest pain, shortness of breath, vomiting, pain with urination, and melena. Source of History: patient Onset: five days ago Position: other (GI) Symptom Intensity: extreme Quality: other (diarrhea) Timing: worsening Associated Symptoms: + nausea, + abdominal pain, No fevers, No headache, No chest pain, No SOB, No vomiting, No melena, No urinary symptoms Review of Systems See HPI for pertinent positives & negatives. A total of 10 systems reviewed and were otherwise negative. Past Medical & Surgical Medical Problems: (1) Adjustment disorder (2) Asthma (3) Depression (4) Diverticulosis Colon (W/O Ment Of Hemorrhage) (5) Drug overdose, intentional (6) DWAYNE (generalized anxiety disorder) (7) Gastroparesis (8) HLD (hyperlipidemia) (9) IBS (irritable bowel syndrome) (10) Migraine (11) Postconcussion Syndrome (12) Posttraumatic Stress Disorder (13) Suicide attempt by drug ingestion (14) Tobacco abuse Surgical Problems: (1) H/O colonoscopy (2) H/O esophagogastroduodenoscopy (3) H/O tubal ligation (4) H/O unilateral oophorectomy (5) History of partial colectomy (6) Hx of appendectomy (7) Hx of tonsillectomy (8) S/P cholecystectomy (9) S/P MARLON (total abdominal hysterectomy) Family History FH: heart disease MOTHER ( from [place] at age 66) BROTHER (details unknown) Heart valve abnormality SISTER Social History Smoking Status: Current Every Day Smoker Alcohol Use: none Housing Status: lives with significant other Current/Historical Medications Scheduled Atorvastatin (Lipitor), 40 MG PO HS Famotidine (Famotidine), 20 MG PO BID Magnesium Oxide (Mg Supplement (Magnesium), 250 MG PO QPM Potassium Chloride Microencaps (Potassium Chloride Er), 1 TAB PO DAILY Pyridoxine (Vitamin B6), 1 TAB PO DAILY Venlafaxine Hcl (Effexor Extended Rel), 150 MG PO DAILY Venlafaxine Hcl (Venlafaxine Extended Rel), 37.5 MG PO DAILY Scheduled PRN Albuterol Hfa (Ventolin Hfa), 2 PUFFS INH Q4H PRN for Wheezing Clonazepam (Klonopin), 1 MG PO BID PRN for Anxiety Epinephrine (Epipen 2-Cisco), 0.3 MG IM UD PRN for ALLERGIC REACTION Fexofenadine Hcl (Hollie Allergy), 1 TAB PO DAILY PRN for allergies Hydrocodone/Acetaminophen 5MG/325MG ([employer]gate 5MG/325MG), 1 TABLET PO Q6 PRN for Pain Allergies Coded Allergies: Ibuprofen (Verified Allergy, Severe, SOB-HIVES, 02/12/17) Iodinated Diagnostic Agents (Verified Allergy, Intermediate, HIVES, ) Tramadol (Verified Allergy, Intermediate, HIVES, 02/12/17) Penicillins (Verified Allergy, Mild, *, 02/12/17) Moxifloxacin (Verified Allergy, Unknown, UNKNOWN, 02/12/17) Sulfa Antibiotics (Verified Allergy, Unknown, unkn, 02/12/17) as a child Ketorolac Tromethamine (Verified Adverse Reaction, Intermediate, "TEARS STOMACH UP", 02/12/17) Fentanyl (Verified Adverse Reaction, Unknown, cramping and muscle spasms, 02/12/17) Prochlorperazine (Verified Adverse Reaction, Unknown, ANXIETY/JITTERY/ HYPOTENSION, 02/12/17) Physical Exam Vital Signs Date Time Temp Pulse Resp B/P (MAP) Pulse Ox O2 Delivery O2 Flow Rate FiO2 04/19/17 20:15 102 20 148/103 Room Air 04/19/17 18:15 36.7 94 16 147/100 98 Room Air Physical Exam GENERAL: Sitting up in bed, disheveled, no acute distress, nontoxic. EYE EXAM: normal conjunctiva. OROPHARYNX: no exudate, no erythema, lips, buccal mucosa, and tongue normal and mucous membranes are moist NECK: supple, no nuchal rigidity, no adenopathy, non-tender LUNGS: Clear to auscultation. Normal chest wall mechanics HEART: no murmurs, S1 normal and S2 normal ABDOMEN: abdomen soft, non-tender, normo-active bowel sounds, no masses, no rebound or guarding. Old abdominal incisions noted. BACK: Back is symmetrical on inspection and there is no deformity, no midline tenderness, no CVA tenderness. SKIN: no rashes and no bruising UPPER EXTREMITIES: upper extremities are grossly normal. LOWER EXTREMITIES: No pitting edema. NEURO EXAM: Normal sensorium, cranial nerves II-XII grossly intact, normal speech, no gross weakness of arms, no gross weakness of legs. Gross sensation intact. Medical Decision & Procedures ER Provider Diagnostic Interpretation: Radiology results as stated below per my review and the radiologist's interpretation: ABDOMEN 2 VIEWS HISTORY: Generalized abdominal pain. COMPARISON: Chest and abdominal series 12/01/2016. FINDINGS: Cholecystectomy. Suture material within the deep pelvis consistent with prior rectosigmoid anastomosis. Pelvic phleboliths remain unchanged. No definite renal or ureteral calculi. Punctate calcifications overlying the kidneys are not confirmed on both views and may be due to the overlapping bowel contents. Moderate well-formed stool seen within the colon. This remains unchanged. No pneumoperitoneum. No pneumatosis. The bowel gas pattern is unremarkable. No evidence for bowel obstruction.. IMPRESSION: 1. No evidence for bowel obstruction. 2. Moderate well-formed stool seen within the colon, unchanged. Electronically signed by: Artur Dick M.D. 04/19/2017 8:00 PM Dictated Date/Time: 04/19/2017 7:58 PM Laboratory Results 04/19/17 19:10 Red Blood Count 4.95, Mean Corpuscular Volume 89.5, Mean Corpuscular Hemoglobin 27.9, Mean Corpuscular Hemoglobin Concent 31.2, Mean Platelet Volume 9.3, Neutrophils (%) (Auto) 44.0, Lymphocytes (%) (Auto) 43.4, Monocytes (%) (Auto) 5.7, Eosinophils (%) (Auto) 6.2, Basophils (%) (Auto) 0.5, Neutrophils # (Auto) 4.16, Lymphocytes # (Auto) 4.11, Monocytes # (Auto) 0.54, Eosinophils # (Auto) 0.59, Basophils # (Auto) 0.05 04/19/17 19:10 Test 04/19/17 18:48 04/19/17 19:10 Urine Color YELLOW Urine Appearance CLEAR (CLEAR) Urine pH 6.0 (4.5-7.5) Urine Specific [place] 1.010 (1.000-1.030) Urine Protein NEG (NEG) Urine Glucose (UA) NEG (NEG) Urine Ketones NEG (NEG) Urine Occult Blood NEG (NEG) Urine Nitrite NEG (NEG) Urine Bilirubin NEG (NEG) Urine Urobilinogen NEG (NEG) Urine Leukocyte Esterase NEG (NEG) Urine WBC (Auto) 1-5 /hpf (0-5) Urine RBC (Auto) 0-4 /hpf (0-4) Urine Hyaline Casts (Auto) 1-5 /lpf (0-5) Urine Epithelial Cells (Auto) >30 /lpf (0-5) Urine Bacteria (Auto) NEG (NEG) Urine Test NEG (NEG) White Blood Count 9.47 K/uL (4.8-10.8) Red Blood Count 4.95 M/uL (4.2-5.4) Hemoglobin 13.8 g/dL (12.0-16.0) Hematocrit 44.3 % (37-47) Mean Corpuscular Volume 89.5 fL (80-100) Mean Corpuscular Hemoglobin 27.9 pg (25-34) Mean Corpuscular Hemoglobin Concent 31.2 g/dl (32-36) Platelet Count 289 K/uL (130-400) Mean Platelet Volume 9.3 fL (7.4-10.4) Neutrophils (%) (Auto) 44.0 % Lymphocytes (%) (Auto) 43.4 % Monocytes (%) (Auto) 5.7 % Eosinophils (%) (Auto) 6.2 % Basophils (%) (Auto) 0.5 % Neutrophils # (Auto) 4.16 K/uL (1.4-6.5) Lymphocytes # (Auto) 4.11 K/uL (1.2-3.4) Monocytes # (Auto) 0.54 K/uL (0.11-0.59) Eosinophils # (Auto) 0.59 K/uL (0-0.5) Basophils # (Auto) 0.05 K/uL (0-0.2) RDW Standard Deviation 42.5 fL (36.4-46.3) RDW Coefficient of Variation 12.9 % (11.5-14.5) Immature Granulocyte % (Auto) 0.2 % Immature Granulocyte # (Auto) 0.02 K/uL (0.00-0.02) Anion Gap 5.0 mmol/L (3-11) Est Creatinine Clear Calc Drug Dose 87.4 ml/min Estimated GFR () 86.6 Estimated GFR (Non- 74.7 BUN/Creatinine Ratio 9.8 (10-20) Calcium Level 9.1 mg/dl (8.5-10.1) Total Bilirubin 0.2 mg/dl (0.2-1) Direct Bilirubin < 0.1 mg/dl (0-0.2) Aspartate Amino Transf (AST/SGOT) 21 U/L (15-37) Alanine Aminotransferase (ALT/SGPT) 39 U/L (12-78) Alkaline Phosphatase 83 U/L (45-117) Total Protein 8.0 gm/dl (6.4-8.2) Albumin 3.6 gm/dl (3.4-5.0) Lipase 132 U/L (73-393) Laboratory results per my review. Medications Administered Medications (Trade) Dose Ordered Sig/Lorna Route Start Time Stop Time Status Last Admin Dose Admin Sodium Chloride 2,000 ml @ 999 mls/hr Q2H1M STAT IV 04/19/17 18:34 04/19/17 20:34 DC 04/19/17 19:18 999 MLS/HR Morphine Sulfate (MoRPHine SULFATE INJ) 4 mg NOW STAT IV 04/19/17 18:34 04/19/17 18:36 DC 04/19/17 19:18 4 MG Morphine Sulfate (MoRPHine SULFATE INJ) 4 mg NOW STAT IV 04/19/17 20:01 04/19/17 20:02 DC 04/19/17 20:11 4 MG ED Course ED COURSE: Vital signs were reviewed and showed hypertension. The patients medical record was reviewed The above diagnostic studies were performed and reviewed. ED treatments and interventions as stated above. 1829: The patient was evaluated in room C8. A complete history and physical examination was performed. 1833: Morphine Sulfate 4 mg IV, NSS 2000 ml @ 999 mls/hr. 1914: Blood work was just obtained. 1939: The patient will try to give a stool sample. 1999: The patient was so far unable to give a stool sample. She 2000: Morphine Sulfate 4 mg IV. 2044: Upon reevaluation, the patient is doing fine.I discussed my findings with the patient and she understands and agrees with the treatment plan. Based on the patients age, coexisting illnesses, exam and lab findings the decision to treat as an outpatient was made. The patient remained stable while under my care. The patient appeared well at the time of discharge. Medical Decision Differential diagnoses includes but is not limited to gastritis, peptic ulcer disease, GERD, gallbladder disease, pancreatitis, small bowel obstruction, acute coronary syndrome, pericarditis, ischemic bowel, irritable bowel disease, irritable bowel syndrome, appendicitis, diverticulitis, malignancy, hernia, urinary tract infection, perforation, trauma, infectious. Medication Reconciliation: I attest that I have personally reviewed the patient' s current medication list. Blood Pressure Screening: The patient was found to have a slightly elevated blood pressure due to circumstances. I do not believe that the patient requires hypertension monitoring. Patient is a 46-year-old female who presents the ER for lower abdominal pain associated with profuse diarrhea. She notes she is going about 15 times per day. She recently finished antibiotics several days ago. Vitals were initially unremarkable. Previous cholecystectomy, appendectomy and total hysterectomy. With her benign abdominal exam and multiple repeat abdominal exams which were benign I did not elect to CT her as she has had multiple CTs in the past. CBC, BMP, LFTs, bilirubin and lipase were normal. UA was negative. Prevacid negative. Infection series shows a large stool burden which does Take picture as the patient notes she has been having movements about 15 times per day. She was observed in the ER for 3 hours with no bowel movement. She was given 2 small doses of Dilaudid for total of 1 mg. Based on her previous history is very well could be C. difficile however favor this is unlikely based on her x-ray and inability to produce a stool after 3 hours. Consequently I did not elect to place her on antibiotics but rather stressed the importance of following up with her PCP tomorrow and for infectious disease for stool sample. Instructed patient that she cannot drive tonight. Discussed with Pt concerning signs and symptoms to watch out for. Pt was instructed to follow up with their PCP and discussed with the patient their option to return to the ED at anytime for persistent or worsening symptoms. The appropriate anticipatory guidance and out-patient management, including indications for return to the emergency department, were explained at length to the patient and understood. Impression Primary Impression: Abdominal pain Scribe Attestation The scribe's documentation has been prepared under my direction and personally reviewed by me in its entirety. I confirm that the note above accurately reflects all work, treatment, procedures, and medical decision making performed by me. Departure Information Dispostion Home / Self-Care Referrals Holland Naik M.D. (PCP) Forms HOME CARE DOCUMENTATION FORM, IMPORTANT VISIT INFORMATION, WORK / SCHOOL INSTRUCTIONS Patient Instructions Abdominal Pain - [facility], ED Diarrhea Viral, [facility] Additional Instructions Please follow up with your primary care doctor with in the next 24 hours. Any worsening of your symptoms, please return to the ED immediately. This includes fevers greater than 100.4, blood in her stool, passing out, inability to drink, no worsening abdominal pain, or any other concerning signs or symptoms from your standpoint. Please make sure you follow up with your primary care doctor in the next 24 hours and give a stool culture. Problem Qualifiers Primary Impression: Abdominal pain Abdominal location: lower abdomen, unspecified Qualified Codes: R10.30 - Lower abdominal pain, unspecified
== END 2017-04-19 20:41 | disposition home or self-care (01) ==
LOC: C.EDB 17:58 → C.EDC 20:41
DX: R10.30 Lower abdominal pain, unspecified (principal); R19.7 Diarrhea, unspecified; E78.5 Hyperlipidemia, unspecified; F41.1 Generalized anxiety disorder; K31.84 Gastroparesis; K57.30 Diverticulosis of large intestine without perforation or abscess without bleeding; K58.9 Irritable bowel syndrome, unspecified; F32.9 Major depressive disorder, single episode, unspecified; J45.909 Unspecified asthma, uncomplicated; F17.200 Nicotine dependence, unspecified, uncomplicated; Z87.820 Personal history of traumatic brain injury; Z98.51 Tubal ligation status; Z90.710 Acquired absence of both cervix and uterus; Z90.49 Acquired absence of other specified parts of digestive tract; Z98.890 Other specified postprocedural states; Z88.0 Allergy status to penicillin; Z88.2 Allergy status to sulfonamides; Z88.3 Allergy status to other anti-infective agents; Z88.6 Allergy status to analgesic agent; Z88.8 Allergy status to other drugs, medicaments and biological substances; Z91.041 Radiographic dye allergy status; Z82.49 Family history of ischemic heart disease and other diseases of the circulatory system

== ENCOUNTER 2017-07-25 02:25 | Emergency (ER) | payer OTHER ==
[~2017-07-25] VITALS: Ht 162.6 cm; Wt 100.2 kg
[~2017-07-25 02:25] MED LIST changes: -ASPI81TA28 PO; -CYCL10TA7 PO
[2017-07-25 02:30] VITALS: Ht 162.6 cm; Wt 100.2 kg
--- NOTE | 2017-07-25 02:53 | EMERGENCY ROOM VISIT NOTE ---
History Report prepared by Ashok: Manpreet Pollard Under the Supervision of: Dr. Alexandra Coleman M.D. First contact with patient: 02:40 Chief Complaint: MENTAL HEALTH EVALUATION Stated Complaint: DEPRESSION,NO SLEEP X 5DYS,AUDITORY HALLUCINATIONS History of Present Illness The patient is a 47 year old female who presents to the Emergency Room for a mental health evaluation. The patient states for the past five days, she has not been able to sleep, and she is experiencing problems with anxiety and depression. She reports she has been experiencing worsening suicidal thoughts, as well as hearing auditory hallucinations of her mother's voice. The patient notes she has never had this before, and she attributes it to her sleep deprivation. She states her mind is racing, and she is experiencing moderate abdominal pain. The patient reports she has a history of several abdominal issues. She denies alcohol and substance use. The patient notes she sees a psychiatrist and is currently on medication. She states she did not try hurting herself tonight, but she has had suicidal thoughts. The patient reports she feels "wiped out and does not want to be here." She notes she has been experiencing these thoughts for the past week. The patient states she tried overdosing on Tylenol and Seroquel a year ago. She reports she did not try overdosing this time because "they [her pills] are not going to kill me, so why would I do it?". The patient notes she has been thinking about hurting herself intermittently for the past five years. She states she previously thought about slitting her wrists while sitting in a bathtub so "I would not coagulate." The patient reports she never attempted it though. She notes she came to the ED before she hurt herself because she is running out of reasons to not hurt herself. The patient states she lives by herself because her kids are grown up and moved out. She reports she smokes 1/2 a pack of cigarettes a day. The patient notes she is willing to stay if it is recommended. She states she has a history of diverticulitis, colon surgery, and reoccurring C-Diff. The patient reports she takes Tylenol for pain. Source of History: patient Onset: five day ago Position: other (global) Quality: other (mental health evaluation) Timing: worsening Associated Symptoms: + abdominal pain Note: Associated symptoms: sleep deprivation, anxiety, depression, suicidal thoughts, auditory hallucinations, Denies: suicidal actions Review of Systems See HPI for pertinent positives & negatives. A total of 10 systems reviewed and were otherwise negative. Past Medical & Surgical Medical Problems: (1) Adjustment disorder (2) Asthma (3) Depression (4) Diverticulosis Colon (W/O Ment Of Hemorrhage) (5) Drug overdose, intentional (6) DWAYNE (generalized anxiety disorder) (7) Gastroparesis (8) HLD (hyperlipidemia) (9) IBS (irritable bowel syndrome) (10) Migraine (11) Postconcussion Syndrome (12) Posttraumatic Stress Disorder (13) Suicide attempt by drug ingestion (14) Tobacco abuse Surgical Problems: (1) H/O colonoscopy (2) H/O esophagogastroduodenoscopy (3) H/O tubal ligation (4) H/O unilateral oophorectomy (5) History of partial colectomy (6) Hx of appendectomy (7) Hx of tonsillectomy (8) S/P cholecystectomy (9) S/P MARLON (total abdominal hysterectomy) Family History FH: heart disease MOTHER ( from [place] at age 66) BROTHER (details unknown) Heart valve abnormality SISTER Social History Smoking Status: Current Every Day Smoker Alcohol Use: none Marital Status: single Housing Status: lives alone Occupation Status: employed Current/Historical Medications Scheduled Famotidine (Famotidine), 20 MG PO BID Furosemide (Furosemide), 40 MG PO DAILY Pyridoxine Hcl (Vitamin B6 100 Mg), 100 MG PO DAILY Trazodone Hcl (Trazodone), 100 MG PO HS Venlafaxine Hcl (Effexor Extended Rel), 150 MG PO DAILY Venlafaxine Hcl (Venlafaxine Extended Rel), 75 MG PO DAILY Scheduled PRN Albuterol Hfa (Ventolin Hfa), 2 PUFFS INH Q4H PRN for Wheezing Clonazepam (Klonopin), 1 MG PO BID PRN for Anxiety Epinephrine (Epipen 2-Cisco), 0.3 MG IM UD PRN for ALLERGIC REACTION Fexofenadine Hcl (Hollie Allergy), 1 TAB PO DAILY PRN for allergies Allergies Coded Allergies: Ibuprofen (Verified Allergy, Severe, SOB-HIVES, 07/25/17) Iodinated Diagnostic Agents (Verified Allergy, Intermediate, HIVES, ) Tramadol (Verified Allergy, Intermediate, HIVES, 07/25/17) Penicillins (Verified Allergy, Mild, *, 07/25/17) Moxifloxacin (Verified Allergy, Unknown, UNKNOWN, 07/25/17) Sulfa Antibiotics (Verified Allergy, Unknown, unkn, 07/25/17) as a child Ketorolac Tromethamine (Verified Adverse Reaction, Intermediate, "TEARS STOMACH UP", 07/25/17) Fentanyl (Verified Adverse Reaction, Unknown, cramping and muscle spasms, 07/25/17) Prochlorperazine (Verified Adverse Reaction, Unknown, ANXIETY/JITTERY/ HYPOTENSION, 07/25/17) Physical Exam Vital Signs Date Time Temp Pulse Resp B/P (MAP) Pulse Ox O2 Delivery O2 Flow Rate FiO2 07/25/17 02:30 36.4 97 18 158/92 99 Room Air Physical Exam Vital signs reviewed. General: Well-appearing 47 year old female, in no significant distress. HEENT: No scleral icterus, PERRLA, neck supple. Atraumatic. Cardiovascular: Regular rate and rhythm, no extra sounds. Pulmonary: Clear to auscultation bilaterally, normal work of breathing. Abdomen: Soft, nontender, nondistended, positive bowel sounds. Musculoskeletal: Atraumatic, no peripheral edema. Neurologic: Patient awake alert and oriented x 3, full strength in all 4 extremities. Cranial nerves 2 through 12 grossly intact. Skin: Warm, dry, no rash Psychiatric: Positive suicidal ideations, negative homicidal ideations, positive auditory hallucinations. Medical Decision & Procedures Laboratory Results 07/25/17 03:01 Red Blood Count 4.47, Mean Corpuscular Volume 90.4, Mean Corpuscular Hemoglobin 30.9, Mean Corpuscular Hemoglobin Concent 34.2, Mean Platelet Volume 9.3, Neutrophils (%) (Auto) 42.1, Lymphocytes (%) (Auto) 43.5, Monocytes (%) (Auto) 6.7, Eosinophils (%) (Auto) 6.9, Basophils (%) (Auto) 0.5, Neutrophils # (Auto) 4.18, Lymphocytes # (Auto) 4.33, Monocytes # (Auto) 0.67, Eosinophils # (Auto) 0.69, Basophils # (Auto) 0.05 07/25/17 03:01 Test 07/25/17 02:38 07/25/17 03:01 Urine Color YELLOW Urine Appearance CLOUDY (CLEAR) Urine pH 5.0 (4.5-7.5) Urine Specific [place] 1.020 (1.000-1.030) Urine Protein NEG (NEG) Urine Glucose (UA) NEG (NEG) Urine Ketones NEG (NEG) Urine Occult Blood NEG (NEG) Urine Nitrite NEG (NEG) Urine Bilirubin NEG (NEG) Urine Urobilinogen NEG (NEG) Urine Leukocyte Esterase NEG (NEG) Urine WBC (Auto) 10-30 /hpf (0-5) Urine RBC (Auto) 5-10 /hpf (0-4) Urine Hyaline Casts (Auto) 1-5 /lpf (0-5) Urine Epithelial Cells (Auto) >30 /lpf (0-5) Urine Bacteria (Auto) 1+ (NEG) Urine Opiates Screen NEG (NEG) Urine Methadone, Qualitative NEG (NEG) Urine Barbiturates NEG (NEG) Urine Phencyclidine (PCP) Level NEG (NEG) Ur Amphetamine/Methamphetamine NEG (NEG) MDMA (Ecstasy) Screen POS (NEG) Urine Benzodiazepines Screen NEG (NEG) Urine Cocaine Metabolite NEG (NEG) Urine Marijuana (THC) NEG (NEG) White Blood Count 9.95 K/uL (4.8-10.8) Red Blood Count 4.47 M/uL (4.2-5.4) Hemoglobin 13.8 g/dL (12.0-16.0) Hematocrit 40.4 % (37-47) Mean Corpuscular Volume 90.4 fL (80-100) Mean Corpuscular Hemoglobin 30.9 pg (25-34) Mean Corpuscular Hemoglobin Concent 34.2 g/dl (32-36) Platelet Count 244 K/uL (130-400) Mean Platelet Volume 9.3 fL (7.4-10.4) Neutrophils (%) (Auto) 42.1 % Lymphocytes (%) (Auto) 43.5 % Monocytes (%) (Auto) 6.7 % Eosinophils (%) (Auto) 6.9 % Basophils (%) (Auto) 0.5 % Neutrophils # (Auto) 4.18 K/uL (1.4-6.5) Lymphocytes # (Auto) 4.33 K/uL (1.2-3.4) Monocytes # (Auto) 0.67 K/uL (0.11-0.59) Eosinophils # (Auto) 0.69 K/uL (0-0.5) Basophils # (Auto) 0.05 K/uL (0-0.2) RDW Standard Deviation 43.3 fL (36.4-46.3) RDW Coefficient of Variation 13.0 % (11.5-14.5) Immature Granulocyte % (Auto) 0.3 % Immature Granulocyte # (Auto) 0.03 K/uL (0.00-0.02) Anion Gap 8.0 mmol/L (3-11) Est Creatinine Clear Calc Drug Dose 86.1 ml/min Estimated GFR () 83.8 Estimated GFR (Non- 72.3 BUN/Creatinine Ratio 12.8 (10-20) Calcium Level 9.0 mg/dl (8.5-10.1) Total Bilirubin 0.2 mg/dl (0.2-1) Direct Bilirubin < 0.1 mg/dl (0-0.2) Aspartate Amino Transf (AST/SGOT) 15 U/L (15-37) Alanine Aminotransferase (ALT/SGPT) 32 U/L (12-78) Alkaline Phosphatase 90 U/L (45-117) Total Protein 7.2 gm/dl (6.4-8.2) Albumin 3.3 gm/dl (3.4-5.0) Thyroid Stimulating Hormone (TSH) 3.300 uIu/ml (0.300-4.500) Salicylates Level 3.3 mg/dl (2.8-20) Acetaminophen Level < 2 ug/ml (10-30) Ethyl Alcohol mg/dL < 3.0 mg/dl (0-3) Laboratory results per my review. Medications Administered Medications (Trade) Dose Ordered Sig/Lorna Route Start Time Stop Time Status Last Admin Dose Admin Promethazine HCl (Phenergan Tab) 25 mg NOW ONCE PO 07/25/17 03:15 07/25/17 03:16 DC 07/25/17 03:15 25 MG Acetaminophen (Tylenol Tab) 650 mg NOW STAT PO 07/25/17 03:43 07/25/17 03:44 DC 07/25/17 03:43 650 MG ED Course 0242: Past medical records reviewed. The patient was evaluated in room A06. A complete history and physical examination was performed. 0256: Case management states there are no beds up stairs. The patient refuses to go upstairs anyway. 0315: Ordered Promethazine HCl 25mg PO 0343: Ordered Acetaminophen 650mg PO 0630: The patient was signed out to Dr. Louis at the change of shift. Please refer to his note for further documentation. Medical Decision Differential diagnosis: Etiologies such as mood disorder, infection, hypoglycemia, electrolyte abnormalities, cardiac sources, intracerebral event, toxicologic, neurologic, as well as others were entertained. This patient was evaluated and appeared to be in no significant distress. The patient is admitting to suicidal thoughts. The patient has had multiple admissions for suicidal thoughts and behavior previously. She states she had a drug overdose last year and was admitted. The patient denies any acute medication ingestions or recreational drug use. She denies any alcohol intoxication. Patient was medically cleared and evaluated by the psychiatric nurse liaison. A bed search is underway on a voluntary basis. The patient has signed a 201. Case will be signed out to Dr. Louis at the change of shift, please see his notes for further detail. Impression Primary Impression: Suicidal ideation Scribe Attestation The scribe's documentation has been prepared under my direction and personally reviewed by me in its entirety. I confirm that the note above accurately reflects all work, treatment, procedures, and medical decision making performed by me. Departure Information Dispostion Still a Patient Referrals Holland Naik M.D. (PCP) Patient Instructions My [facility]
[2017-07-25 03:00] LABS: URINE APPEARANCE CLOUDY (CLEAR); URINE BILIRUBIN NEG (NEG); URINE COLOR YELLOW; URINE EPITHELIAL CELL AUTO >30 /lpf (0-5); URINE NITRITE NEG (NEG); UROBILINOGEN NEG (NEG); ZZUR CULT IF INDIC CLEAN CATCH YES
[2017-07-25 03:05] LABS: MANUAL MICROSCOPIC REQUIRED? NO; REVIEW REQ? NO
[2017-07-25 03:13] LABS: BASO % 0.5 %; BASO ABS # 0.05 K/uL (0-0.2); COMPLETE YES; EOS % 6.9 %; HEMATOCRIT 40.4 % (37-47); IG% 0.3 %; LYMPH % 43.5 %; LYMPH ABS # 4.33 K/uL (1.2-3.4); MEAN CELL VOLUME 90.4 fL (80-100); MEAN CORPUSCULAR HEMOGLOBIN 30.9 pg (25-34); MEAN CORPUSCULAR HGB CONC 34.2 g/dl (32-36); MEAN PLATELET VOLUME 9.3 fL (7.4-10.4); MONO % 6.7 %; NEUT % 42.1 %; PLATELET COUNT 244 K/uL (130-400); RED BLOOD COUNT 4.47 M/uL (4.2-5.4); WHITE BLOOD COUNT 9.95 K/uL (4.8-10.8)
[2017-07-25] MEDS ORDERED: PROMETHAZINE HCL 25 MG TAB PO ONE (03:15)
[2017-07-25 03:21] LABS: BENZODIAZEPINE, URINE NEG (NEG); COCAINE,URINE NEG (NEG); PHENCYCLIDINE, URINE NEG (NEG)
[2017-07-25] MEDS ORDERED: LSX40 PO (03:33)
[2017-07-25] MEDS ORDERED: TRAZ100T29 PO (03:33)
[2017-07-25] MEDS ORDERED: PYRI100T4 PO (03:34)
[2017-07-25 03:40] LABS: ALT/SGPT 32 U/L (12-78); AST/SGOT 15 U/L (15-37); BLOOD UREA NITROGEN 12 mg/dl (7-18); BUN/CREATININE RATIO 12.8 (10-20); CARBON DIOXIDE 29 mmol/L (21-32); CHLORIDE 105 mmol/L (98-107); CREATININE 0.95 mg/dl (0.60-1.20); GLUCOSE 98 mg/dl (70-99); POTASSIUM 3.5 mmol/L (3.5-5.1); SODIUM 142 mmol/L (136-145)
[2017-07-25] MEDS ORDERED: ACETAMINOPHEN 325 MG TAB PO STA (03:43)
[2017-07-25 03:46] LABS: ACETAMINOPHEN < 2 ug/ml (10-30)
[2017-07-25 03:51] LABS: ALKALINE PHOSPHATASE 90 U/L (45-117)
[2017-07-25] MEDS ORDERED: PYRIDOXINE HCL 50 MG TAB PO STA (06:55)
[2017-07-25] MEDS ORDERED: FUROSEMIDE 40 MG TAB PO STA (06:55)
[2017-07-25] MEDS ORDERED: VENLAFAXINE HCL XR 37.5 MG CAPXR PO SCH (07:00)
[2017-07-25] MEDS ORDERED: FAMOTIDINE 20 MG TAB PO ONE (07:00)
[2017-07-25] MEDS ORDERED: VENLAFAXINE HCL XR 150 MG CAPXR PO SCH (07:00)
[2017-07-25 09:59] VITALS: BP 139/84; PULSE 85; TEMP 36.4; O2SAT 93
--- NOTE | 2017-07-25 13:14 | EMERGENCY ROOM VISIT NOTE ---
ED Visit Note First contact with patient: 07:16 I assumed care at the change of shift, Dr. Coleman had been the physician prior to me. The patient was undergoing a bed search for a voluntary psychiatric admission. The patient was accepted at [facility]. The patient will be transported to this hospital. The paperwork for transport is being filled out. The patient has been cooperative during her stay while under my care.
[2017-07-28 15:31] LABS: SYNTHETIC CANNABINOIDS QL URIN NEGATIVE (Negative)
== END 2017-07-25 10:01 ==
LOC: C.EDB 02:27 → C.EDA 10:01
DX: Z00.8 Encounter for other general examination (principal); R45.851 Suicidal ideations; F17.210 Nicotine dependence, cigarettes, uncomplicated; J45.909 Unspecified asthma, uncomplicated; F32.9 Major depressive disorder, single episode, unspecified; F41.1 Generalized anxiety disorder; K31.84 Gastroparesis; E78.5 Hyperlipidemia, unspecified; K58.9 Irritable bowel syndrome, unspecified; F43.10 Post-traumatic stress disorder, unspecified; Z98.51 Tubal ligation status; Z90.721 Acquired absence of ovaries, unilateral; Z90.710 Acquired absence of both cervix and uterus; Z90.49 Acquired absence of other specified parts of digestive tract; Z82.49 Family history of ischemic heart disease and other diseases of the circulatory system; Z79.899 Other long term (current) drug therapy

== ENCOUNTER 2017-07-28 16:37 | Emergency (ER) | payer OTHER ==
[~2017-07-28] VITALS: Ht 165.1 cm; Wt 99.8 kg
[~2017-07-28 16:37] MED LIST changes: -ATOR-24 PO; -HYDR-5688 PO; +LSX40 PO; -MAGN250T8 PO; -POTA20TA13 PO; +TRAZ100T29 PO
[2017-07-28 16:44] VITALS: TEMP 36.6; Ht 165.1 cm; Wt 99.8 kg
[2017-07-28] MEDS ORDERED: ONDANSETRON INJ 2 MG/ML 2 ML VIAL IV STA (17:35)
[2017-07-28] MEDS ORDERED: SODIUM CHLORIDE 0.9% 1000ML 1,000 ML IV STA (17:35)
[2017-07-28] MEDS ORDERED: KETOROLAC TROMETHAMINE 30 MG/ML VIAL IV STA (17:39)
[2017-07-28] MEDS ORDERED: HALO2TAB PO (17:48)
--- NOTE | 2017-07-28 18:02 | DIAGNOSTIC IMAGING REPORT ---
CHEST ONE VIEW PORTABLE HISTORY: ABDOMINAL PAIN/GI COMPARISON: Chest 02/12/2017. FINDINGS: The lungs are clear. Cardiac silhouette is normal in size. No pleural effusions. No pneumothorax. Partial nodular densities within the peripheral left upper lobe is likely due to the overlapping scapula and ribs. Cholecystectomy. IMPRESSION: No acute process. Electronically signed by: Artur Dick M.D. 07/28/2017 6:01 PM Dictated Date/Time: 07/28/2017 5:59 PM
[2017-07-28 18:26] LABS: BASO % 0.4 %; BASO ABS # 0.05 K/uL (0-0.2); COMPLETE YES; EOS % 4.5 %; IG% 0.3 %; LYMPH % 30.3 %; LYMPH ABS # 3.62 K/uL (1.2-3.4); MEAN CELL VOLUME 89.3 fL (80-100); MEAN CORPUSCULAR HEMOGLOBIN 30.4 pg (25-34); MEAN PLATELET VOLUME 9.4 fL (7.4-10.4); MONO % 6.2 %; NEUT % 58.3 %; PLATELET COUNT 262 K/uL (130-400); RED BLOOD COUNT 4.48 M/uL (4.2-5.4); WHITE BLOOD COUNT 11.93 K/uL (4.8-10.8)
[2017-07-28 18:28] LABS: URINE APPEARANCE CLEAR (CLEAR); URINE BILIRUBIN NEG (NEG); URINE COLOR YELLOW; URINE NITRITE NEG (NEG); URINE PH 6.5 (4.5-7.5); UROBILINOGEN NEG (NEG); ZZUR CULT IF INDIC CLEAN CATCH NO
[2017-07-28 18:41] LABS: MANUAL MICROSCOPIC REQUIRED? NO; REVIEW REQ? YES
[2017-07-28 18:44] LABS: ALT/SGPT 70 U/L (12-78); AST/SGOT 34 U/L (15-37); BLOOD UREA NITROGEN 12 mg/dl (7-18); BUN/CREATININE RATIO 12.5 (10-20); CARBON DIOXIDE 31 mmol/L (21-32); CHLORIDE 105 mmol/L (98-107); CREATININE 0.99 mg/dl (0.60-1.20); GLUCOSE 90 mg/dl (70-99); SODIUM 141 mmol/L (136-145)
[2017-07-28 18:46] LABS: ALKALINE PHOSPHATASE 93 U/L (45-117)
[2017-07-28 18:53] VITALS: BP 118/90; PULSE 88; O2SAT 98
[2017-07-28 19:00] LABS: URINE EPITHELIAL CELL AUTO >30 /lpf (0-5)
--- NOTE | 2017-07-28 20:07 | DIAGNOSTIC IMAGING REPORT ---
ABD/PELVIS WITHOUT FOR STONE CLINICAL HISTORY: 47 years-old Female presenting with left sided abd pain. TECHNIQUE: Multidetector CT of the abdomen and pelvis was performed without the use of intravenous contrast. IV contrast: None. A dose lowering technique was used consistent with the principles of ALARA (as low as reasonably achievable). COMPARISON: 11/11/2016. CT DOSE (mGy.cm): The estimated cumulative dose is 1519.64 mGy.cm. 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 Lung bases: Minimal dependent changes likely atelectasis. Normal heart size. No pericardial or pleural effusion. Liver: Normal morphology. Normal density. Biliary: No gross biliary ductal dilatation allowing for noncontrast technique. Gallbladder surgically absent. Pancreas: Normal noncontrast appearance. Spleen: Normal noncontrast appearance. Adrenal glands: Normal noncontrast appearance. Kidneys and ureters: Multiple punctate nonobstructing renal calculi bilaterally similar to prior exam. No hydronephrosis. Ureters normal without evidence of ureteral calculi. Bladder: Normal. No bladder calculi. Pelvic organs: Uterus surgically absent. Left adnexal cyst likely within the left ovary, measuring 2.6 cm, incompletely evaluated on this noncontrast examination. This is new from prior. Bowel: Anastomosis noted in the region of the upper rectum from prior sigmoidectomy. Pancolonic diverticulosis noted predominantly in the left colon. Postsurgical changes of appendectomy. No bowel obstruction. Peritoneal cavity: No free fluid or intraperitoneal gas. Lymph nodes: No gross lymphadenopathy allowing for noncontrast technique. Vasculature: Normal noncontrast appearance. Abdominal wall: Postsurgical changes of the midline infraumbilical ventral abdominal wall. Musculoskeletal: Normal. IMPRESSION: 1. No acute intra-abdominal pathology. 2. Multiple punctate bilateral renal calculi. No hydronephrosis. No evidence of recent stone passage. 3. 2.6 cm left adnexal cyst, new from prior. This is likely within the left ovary. Correlate with surgical history. If there is clinical concern, this could be further evaluated with ultrasound. 4. [place]ahan colonic diverticulosis. No evidence of diverticulitis. 5. Post surgical changes of appendectomy. Electronically signed by: Doe Pantoja M.D. 07/28/2017 8:05 PM Dictated Date/Time: 07/28/2017 7:59 PM
--- NOTE | 2017-07-28 20:25 | EMERGENCY ROOM VISIT NOTE ---
History Report prepared by Ashok: Thad Martinez Under the Supervision of: Dr. Guy Trivedi D.O. First contact with patient: 17:30 Chief Complaint: GI ASSESSMENT Stated Complaint: ABD PAIN,BLOOD IN STOOL,YELLOW STOOL W/PUSS Nursing Triage Summary: pt c/o left abdominal pain since monday. pt c/o bloody stool x2 days and noticed today BM "was more yellowish and pussy.. almost like foam." pt also c/o nausea and vomiting today History of Present Illness The patient is a 47 year old female who presents to the Emergency Room with complaints of worsening left sided abdominal pain for the past four days. The patient additionally states that she has been having changes in her bowel movements. She states that the bowel movements started out as formed stool with blood in it, and now it is yellow, liquid, and seems like there is foam and pus. The patient denies any back pain. She additionally notes that she is having some nausea. She states that she has a history of a colon resection 8-9 years ago, and she has had diverticulosis. Source of History: patient Onset: four days ago Position: abdomen (left sided) Timing: worsening Associated Symptoms: + hematochezia, + diarrhea, No back pain Review of Systems See HPI for pertinent positives & negatives. A total of 10 systems reviewed and were otherwise negative. Past Medical & Surgical Medical Problems: (1) Adjustment disorder (2) Asthma (3) Depression (4) Diverticulosis Colon (W/O Ment Of Hemorrhage) (5) Drug overdose, intentional (6) DWAYNE (generalized anxiety disorder) (7) Gastroparesis (8) HLD (hyperlipidemia) (9) IBS (irritable bowel syndrome) (10) Migraine (11) Postconcussion Syndrome (12) Posttraumatic Stress Disorder (13) Suicide attempt by drug ingestion (14) Tobacco abuse Surgical Problems: (1) H/O colonoscopy (2) H/O esophagogastroduodenoscopy (3) H/O tubal ligation (4) H/O unilateral oophorectomy (5) History of partial colectomy (6) Hx of appendectomy (7) Hx of tonsillectomy (8) S/P cholecystectomy (9) S/P MARLON (total abdominal hysterectomy) Family History FH: heart disease MOTHER ( from [place] at age 66) BROTHER (details unknown) Heart valve abnormality SISTER Social History Smoking Status: Current Every Day Smoker Alcohol Use: none Marital Status: single Housing Status: lives alone Occupation Status: employed Current/Historical Medications Scheduled Famotidine (Famotidine), 20 MG PO BID Furosemide (Furosemide), 40 MG PO DAILY Haloperidol (Haloperidol), 1 TAB PO HS Pyridoxine Hcl (Vitamin B6 100 Mg), 100 MG PO DAILY Venlafaxine Hcl (Effexor Extended Rel), 150 MG PO DAILY Venlafaxine Hcl (Venlafaxine Extended Rel), 75 MG PO DAILY Scheduled PRN Albuterol Hfa (Ventolin Hfa), 2 PUFFS INH Q4H PRN for Wheezing Clonazepam (Klonopin), 1 MG PO BID PRN for Anxiety Epinephrine (Epipen 2-Cisco), 0.3 MG IM UD PRN for ALLERGIC REACTION Fexofenadine Hcl (Hollie Allergy), 1 TAB PO DAILY PRN for allergies Allergies Coded Allergies: Ibuprofen (Verified Allergy, Severe, SOB-HIVES, 07/28/17) Iodinated Diagnostic Agents (Verified Allergy, Intermediate, HIVES, ) Tramadol (Verified Allergy, Intermediate, HIVES, 07/28/17) Penicillins (Verified Allergy, Mild, *, 07/28/17) Moxifloxacin (Verified Allergy, Unknown, UNKNOWN, 07/28/17) Sulfa Antibiotics (Verified Allergy, Unknown, unkn, 07/28/17) as a child Ketorolac Tromethamine (Verified Adverse Reaction, Intermediate, "TEARS STOMACH UP", 07/28/17) Prochlorperazine (Verified Adverse Reaction, Unknown, ANXIETY/JITTERY/ HYPOTENSION, 07/28/17) Physical Exam Vital Signs Date Time Temp Pulse Resp B/P (MAP) Pulse Ox O2 Delivery O2 Flow Rate FiO2 07/28/17 18:53 88 16 118/90 98 Room Air 07/28/17 16:44 36.6 117 20 135/85 95 Room Air Physical Exam CONSTITUTIONAL/VITAL SIGNS: Reviewed / noted above. GENERAL: Non-toxic in appearance. INTEGUMENTARY: Warm, dry, and Peyton. HEAD: Normocephalic. EYES: without scleral icterus or trauma. ENT/OROPHARYNX: clear and moist. LYMPHADENOPATHY/NECK: Is supple without lymphadenopathy or meningismus. RESPIRATORY: Lungs clear and equal. CARDIOVASCULAR: Regular rate and rhythm. GI/ABDOMEN: Soft and nontender. No organomegaly or pulsatile mass. No rebound or guarding. Normal bowel sounds. EXTREMITIES: Warm and well perfused. BACK: No CVA tenderness. NEUROLOGICAL: Intact without focal deficits. PSYCHIATRIC: normal affect. MUSCULOSKELETAL: Normally developed with good muscle tone. Medical Decision & Procedures ER Provider Diagnostic Interpretation: Radiology results as stated below per my review and radiologist interpretation: ABD/PELVIS WITHOUT FOR STONE CLINICAL HISTORY: 47 years-old Female presenting with left sided abd pain. TECHNIQUE: Multidetector CT of the abdomen and pelvis was performed without the use of intravenous contrast. IV contrast: None. A dose lowering technique was used consistent with the principles of ALARA (as low as reasonably achievable). COMPARISON: 11/11/2016. CT DOSE (mGy.cm): The estimated cumulative dose is 1519.64 mGy.cm. 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 Lung bases: Minimal dependent changes likely atelectasis. Normal heart size. No pericardial or pleural effusion. Liver: Normal morphology. Normal density. Biliary: No gross biliary ductal dilatation allowing for noncontrast technique. Gallbladder surgically absent. Pancreas: Normal noncontrast appearance. Spleen: Normal noncontrast appearance. Adrenal glands: Normal noncontrast appearance. Kidneys and ureters: Multiple punctate nonobstructing renal calculi bilaterally similar to prior exam. No hydronephrosis. Ureters normal without evidence of ureteral calculi. Bladder: Normal. No bladder calculi. Pelvic organs: Uterus surgically absent. Left adnexal cyst likely within the left ovary, measuring 2.6 cm, incompletely evaluated on this noncontrast examination. This is new from prior. Bowel: Anastomosis noted in the region of the upper rectum from prior sigmoidectomy. Pancolonic diverticulosis noted predominantly in the left colon. Postsurgical changes of appendectomy. No bowel obstruction. Peritoneal cavity: No free fluid or intraperitoneal gas. Lymph nodes: No gross lymphadenopathy allowing for noncontrast technique. Vasculature: Normal noncontrast appearance. Abdominal wall: Postsurgical changes of the midline infraumbilical ventral abdominal wall. Musculoskeletal: Normal. IMPRESSION: 1. No acute intra-abdominal pathology. 2. Multiple punctate bilateral renal calculi. No hydronephrosis. No evidence of recent stone passage. 3. 2.6 cm left adnexal cyst, new from prior. This is likely within the left ovary. Correlate with surgical history. If there is clinical concern, this could be further evaluated with ultrasound. 4. Monahan colonic diverticulosis. No evidence of diverticulitis. 5. Post surgical changes of appendectomy. Electronically signed by: Doe Pantoja M.D. 07/28/2017 8:05 PM Dictated Date/Time: 07/28/2017 7:59 PM CHEST ONE VIEW PORTABLE HISTORY: ABDOMINAL PAIN/GI COMPARISON: Chest 02/12/2017. FINDINGS: The lungs are clear. Cardiac silhouette is normal in size. No pleural effusions. No pneumothorax. Partial nodular densities within the peripheral left upper lobe is likely due to the overlapping scapula and ribs. Cholecystectomy. IMPRESSION: No acute process. Electronically signed by: Artur Dick M.D. 07/28/2017 6:01 PM Dictated Date/Time: 07/28/2017 5:59 PM Laboratory Results 07/28/17 18:07 Red Blood Count 4.48, Mean Corpuscular Volume 89.3, Mean Corpuscular Hemoglobin 30.4, Mean Corpuscular Hemoglobin Concent 34.0, Mean Platelet Volume 9.4, Neutrophils (%) (Auto) 58.3, Lymphocytes (%) (Auto) 30.3, Monocytes (%) (Auto) 6.2, Eosinophils (%) (Auto) 4.5, Basophils (%) (Auto) 0.4, Neutrophils # (Auto) 6.94, Lymphocytes # (Auto) 3.62, Monocytes # (Auto) 0.74, Eosinophils # (Auto) 0.54, Basophils # (Auto) 0.05 07/28/17 18:07 Test 07/28/17 18:07 White Blood Count 11.93 K/uL (4.8-10.8) Red Blood Count 4.48 M/uL (4.2-5.4) Hemoglobin 13.6 g/dL (12.0-16.0) Hematocrit 40.0 % (37-47) Mean Corpuscular Volume 89.3 fL (80-100) Mean Corpuscular Hemoglobin 30.4 pg (25-34) Mean Corpuscular Hemoglobin Concent 34.0 g/dl (32-36) Platelet Count 262 K/uL (130-400) Mean Platelet Volume 9.4 fL (7.4-10.4) Neutrophils (%) (Auto) 58.3 % Lymphocytes (%) (Auto) 30.3 % Monocytes (%) (Auto) 6.2 % Eosinophils (%) (Auto) 4.5 % Basophils (%) (Auto) 0.4 % Neutrophils # (Auto) 6.94 K/uL (1.4-6.5) Lymphocytes # (Auto) 3.62 K/uL (1.2-3.4) Monocytes # (Auto) 0.74 K/uL (0.11-0.59) Eosinophils # (Auto) 0.54 K/uL (0-0.5) Basophils # (Auto) 0.05 K/uL (0-0.2) RDW Standard Deviation 42.4 fL (36.4-46.3) RDW Coefficient of Variation 13.1 % (11.5-14.5) Immature Granulocyte % (Auto) 0.3 % Immature Granulocyte # (Auto) 0.04 K/uL (0.00-0.02) Urine Color YELLOW Urine Appearance CLEAR (CLEAR) Urine pH 6.5 (4.5-7.5) Urine Specific Melvin 1.010 (1.000-1.030) Urine Protein NEG (NEG) Urine Glucose (UA) NEG (NEG) Urine Ketones NEG (NEG) Urine Occult Blood NEG (NEG) Urine Nitrite NEG (NEG) Urine Bilirubin NEG (NEG) Urine Urobilinogen NEG (NEG) Urine Leukocyte Esterase NEG (NEG) Urine WBC (Auto) 1-5 /hpf (0-5) Urine RBC (Auto) 0-4 /hpf (0-4) Urine Hyaline Casts (Auto) 0 /lpf (0-5) Urine Epithelial Cells (Auto) >30 /lpf (0-5) Urine Bacteria (Auto) NEG (NEG) Urine Test NEG (NEG) Anion Gap 5.0 mmol/L (3-11) Est Creatinine Clear Calc Drug Dose 84.0 ml/min Estimated GFR () 79.8 Estimated GFR (Non- 68.8 BUN/Creatinine Ratio 12.5 (10-20) Calcium Level 9.0 mg/dl (8.5-10.1) Total Bilirubin 0.1 mg/dl (0.2-1) Direct Bilirubin < 0.1 mg/dl (0-0.2) Aspartate Amino Transf (AST/SGOT) 34 U/L (15-37) Alanine Aminotransferase (ALT/SGPT) 70 U/L (12-78) Alkaline Phosphatase 93 U/L (45-117) Total Protein 7.6 gm/dl (6.4-8.2) Albumin 3.7 gm/dl (3.4-5.0) Lipase 106 U/L (73-393) Laboratory results as stated above per my review. Medications Administered Medications (Trade) Dose Ordered Sig/Lorna Route Start Time Stop Time Status Last Admin Dose Admin Sodium Chloride 1,000 ml @ 999 mls/hr Q1H1M STAT IV 07/28/17 17:35 07/28/17 18:35 DC 07/28/17 18:16 999 MLS/HR Ondansetron HCl (Zofran Inj) 4 mg NOW STAT IV 07/28/17 17:35 07/28/17 17:37 DC 07/28/17 18:16 4 MG ED Course 1732: Previous medical records were reviewed. The patient was evaluated in room B5. A complete history and physical examination was performed. 1735: Zofran Inj 4mg IV, Sodium Chloride 1000 ml @ 999 mls/hr IV 1739: Toradol Inj 3mg IV 2019: On reevaluation, the patient is doing well. I discussed the results and findings with the patient. She verbalized agreement of the treatment plan. She was discharged home. Medical Decision Differential considered: pancreatitis, hepatitis, or acute cholecystitis, AAA, UTI, pyelonephritis, kidney stones, appendicitis, diverticulitis, shingles, bowel obstruction mesenteric ischemia, intussusception,hernia, testicular torsion, ovarian torsion, ruptured ovarian cyst,ectopic , .. This is a 47-year-old female who presents to the ED with a chief complaint of abdominal pain. The patient states that she has had the pain for the past 4 days and seems to be worse over the past 12 hours. The patient also reports some yellowish discharge/diarrhea. The patient's abdominal exam was relatively unremarkable. Her physical exam was unremarkable. CBC was unremarkable, complete metabolic panel is normal, urine did not show infection test was negative, CT scan of the abdomen and pelvis reveals no acute intra- abdominal findings. There was noted to be a 2.6 left-sided adnexal cyst. The patient was told results the test. She was given IV Zofran and IV fluids. Toradol was ordered but she declined this as she stated she was allergic. She has multiple allergies and therefore no pain medication was given but she appeared to be comfortable at the time of disposition. She was actually laying in bed sleeping. The patient was told to follow-up for her symptoms. She was unable to provide a stool sample for testing. She was told to see her slope tender for adnexal cyst. She is felt to be stable for discharge and outpatient follow-up. Medication Reconcilliation Current Medication List: was personally reviewed by me Blood Pressure Screening Patient's blood pressure: Normal blood pressure Impression Primary Impression: LLQ abdominal pain Additional Impression: Diarrhea Scribe Attestation The scribe's documentation has been prepared under my direction and personally reviewed by me in its entirety. I confirm that the note above accurately reflects all work, treatment, procedures, and medical decision making performed by me. Departure Information Dispostion Home / Self-Care Referrals Holland Naik M.D. (PCP) Forms HOME CARE DOCUMENTATION FORM, IMPORTANT VISIT INFORMATION Patient Instructions Abdominal Pain, My [facility] Additional Instructions Follow-up with your doctor if symptoms persist. Follow-up with your slope tender as well for further evaluation of the adnexal cyst on the left. Follow-up with your doctor for further care and evaluation in 1-2 days. Return to the emergency department for worsening or new symptoms or any concerns. You have been examined and treated today on an emergency basis only. This is not a substitute for, or an effort to provide, complete comprehensive medical care. It is impossible to recognize and treat all injuries or illnesses in a single emergency department visit. It is therefore important that you follow up closely with your doctor. Call as soon as possible for an appointment. Problem Qualifiers
== END 2017-07-28 20:36 | disposition home or self-care (01) ==
LOC: C.EDB 16:38
DX: R10.32 Left lower quadrant pain (principal); R19.7 Diarrhea, unspecified; J45.909 Unspecified asthma, uncomplicated; F32.9 Major depressive disorder, single episode, unspecified; K57.90 Diverticulosis of intestine, part unspecified, without perforation or abscess without bleeding; F41.9 Anxiety disorder, unspecified; E78.5 Hyperlipidemia, unspecified; K58.9 Irritable bowel syndrome, unspecified; F43.10 Post-traumatic stress disorder, unspecified; Z82.49 Family history of ischemic heart disease and other diseases of the circulatory system; F17.200 Nicotine dependence, unspecified, uncomplicated

== ENCOUNTER 2017-08-03 22:27 | Emergency (ER) | payer OTHER ==
[~2017-08-03] VITALS: Ht 165.1 cm; Wt 100.6 kg
[~2017-08-03 22:27] MED LIST changes: +HALO2TAB PO; -TRAZ100T29 PO
[2017-08-03 22:29] VITALS: Ht 165.1 cm; Wt 100.6 kg
[2017-08-03] MEDS ORDERED: CTP/1 PO (23:04)
[2017-08-03] MEDS ORDERED: VENL-273 PO (23:04)
[2017-08-03] MEDS ORDERED: ONDANSETRON 4MG OD TAB PO STA (23:24)
--- NOTE | 2017-08-03 23:28 | EMERGENCY ROOM VISIT NOTE ---
History Report prepared by Ashok: Pritesh Zaldivar Under the Supervision of: Dr. Sejal Rodriguez D.O. First contact with patient: 23:02 Chief Complaint: MENTAL HEALTH EVALUATION Stated Complaint: NO SLEEP FOR 48 HOURS, AUDITORY HALLUCINATIONS History of Present Illness The patient is a 47 year old female who presents to the Emergency Room with complaints of constant lack of sleep that started two days ago. She rates her discomfort as an 8/10 in severity. The patient states that she has had issues with sleeping in the past. She reports that she was admitted to [facility] for four days as inpatient a week ago due to her sleeping problems. The patient states that following her admission she was fine and able to sleep until two days ago. The patient states that she has not been able to sleep since 0800 two days ago. She reports that she is normally fine without a whole day of sleep, but she reports she starts to hallucinate when her lack of sleep worsens. The patient states that she usually has auditory hallucinations, including her mom talking to her. She states that these symptoms have been having an earlier onset this time. The patient also reports that she also started to see "shadowy things". The patient denies any current suicidal ideation, but reports that the last time she had trouble sleeping she said she would "do anything to get sleep". She states that she tried sleeping medications in the past, including Haldol, but admits that whenever she took this medication she was still wide awake. The patient admits that she was prescribed Clonidine at [facility] and did not take it until last night, but denies any relief of symptoms. She states that she also has been experiencing abdominal pain due to her history of ovary remnant and ovarian cyst. The patient states that she has only taken Tylenol for her pain because she is allergic to multiple medications, including Benadryl, Ibuprofen, and Toradol. She states that her abdominal pain has been accompanied by nausea, vomiting, and loose stools. The patient states that she believes that her lack of sleep could be due to her abdominal pain and mental health issues. She admits that when she went to [place] she had abdominal pain. The patient admits to a history of Clostridium Difficile. The patient reports that she still lives with her ex- fiancee but he is not supportive. She states that she is currently living with a roommate at [facility]. Source of History: patient Onset: two days ago at 0800 Position: other (global) Symptom Intensity: 06/01 Quality: other (global) Timing: constant Modifying Factors (Relieving): tylenol, other (Clonodine) Associated Symptoms: + nausea, + vomiting, + abdominal pain Review of Systems See HPI for pertinent positives & negatives. A total of 10 systems reviewed and were otherwise negative. Past Medical & Surgical Medical Problems: (1) Adjustment disorder (2) Asthma (3) Depression (4) Diverticulosis Colon (W/O Ment Of Hemorrhage) (5) Drug overdose, intentional (6) DWAYNE (generalized anxiety disorder) (7) Gastroparesis (8) HLD (hyperlipidemia) (9) IBS (irritable bowel syndrome) (10) Migraine (11) Postconcussion Syndrome (12) Posttraumatic Stress Disorder (13) Suicide attempt by drug ingestion (14) Tobacco abuse Surgical Problems: (1) H/O colonoscopy (2) H/O esophagogastroduodenoscopy (3) H/O tubal ligation (4) H/O unilateral oophorectomy (5) History of partial colectomy (6) Hx of appendectomy (7) Hx of tonsillectomy (8) S/P cholecystectomy (9) S/P MARLON (total abdominal hysterectomy) Family History FH: heart disease MOTHER ( from [place] at age 66) BROTHER (details unknown) Heart valve abnormality SISTER Social History Smoking Status: Current Every Day Smoker Alcohol Use: none Marital Status: single Housing Status: lives alone Occupation Status: employed Current/Historical Medications Scheduled Clonidine Hcl (Catapres), 0.1 MG PO HS Famotidine (Famotidine), 20 MG PO BID Pyridoxine Hcl (Vitamin B6 100 Mg), 100 MG PO DAILY Venlafaxine Hcl (Effexor Extended Rel), 150 MG PO DAILY Venlafaxine Hcl (Venlafaxine Hcl Er), 75 MG PO DAILY Scheduled PRN Albuterol Hfa (Ventolin Hfa), 2 PUFFS INH Q4H PRN for Wheezing Clonazepam (Klonopin), 1 MG PO BID PRN for Anxiety Epinephrine (Epipen 2-Cisco), 0.3 MG IM UD PRN for ALLERGIC REACTION Fexofenadine Hcl (Hollie Allergy), 1 TAB PO DAILY PRN for allergies Furosemide (Furosemide), 40 MG PO DAILY PRN for EDEMA Allergies Coded Allergies: Ibuprofen (Verified Allergy, Severe, SOB-HIVES, 08/03/17) Iodinated Diagnostic Agents (Verified Allergy, Intermediate, HIVES, ) Tramadol (Verified Allergy, Intermediate, HIVES, 08/03/17) Penicillins (Verified Allergy, Mild, *, 08/03/17) Moxifloxacin (Verified Allergy, Unknown, UNKNOWN, 08/03/17) Sulfa Antibiotics (Verified Allergy, Unknown, unkn, 08/03/17) as a child Haloperidol (Verified Adverse Reaction, Intermediate, "KEEPS ME AWAKE, CAN 'T SLEEP"., 08/03/17) Ketorolac Tromethamine (Verified Adverse Reaction, Intermediate, "TEARS STOMACH UP", 08/03/17) Prochlorperazine (Verified Adverse Reaction, Unknown, ANXIETY/JITTERY/ HYPOTENSION, 08/03/17) Physical Exam Vital Signs Date Time Temp Pulse Resp B/P (MAP) Pulse Ox O2 Delivery O2 Flow Rate FiO2 08/04/17 00:05 90 16 147/108 98 Room Air 08/03/17 22:29 36.8 106 20 162/100 98 Room Air Physical Exam HEENT: Head - normocephalic and atraumatic Pupils are equal, round, and reactive to light. Extraocular eye muscles are intact, and sclera are anicteric. Nose - moist nasal mucosa without discharge. Mouth - moist buccal mucosa. Oropharynx is nonerythematous and there is no tonsillar exudate or edema noted. Neck: Supple; no JVD, nuchal rigidity, cervical lymphadenopathy. Heart: Regular rate and rhythm. There is a normal S1 and S2 with no murmurs, clicks, or gallops appreciated. Lungs: Clear to auscultation bilaterally with no wheezes, rales, or rhonchi. Abdomen: Soft, pain in left lower quadrant. nondistended, with good bowel sounds. There are no palpable pulsatile masses or hepatosplenomegaly. There is no guarding, rigidity, or rebound noted. Extremities: No evidence of cyanosis, clubbing, or edema. There are easily palpable peripheral pulses. Skin: warm and dry with good turgor and no rashes. Psych: normal affect, slightly hyperverbal, denies suicidal ideation. Medical Decision & Procedures Laboratory Results 08/03/17 23:29 08/03/17 23:29 Test 08/03/17 22:20 08/03/17 23:29 Urine Opiates Screen NEG (NEG) Urine Methadone, Qualitative NEG (NEG) Urine Barbiturates NEG (NEG) Urine Phencyclidine (PCP) Level NEG (NEG) Ur Amphetamine/Methamphetamine NEG (NEG) MDMA (Ecstasy) Screen NEG (NEG) Urine Benzodiazepines Screen NEG (NEG) Urine Cocaine Metabolite NEG (NEG) Urine Marijuana (THC) NEG (NEG) Red Blood Count 4.28 M/uL (4.2-5.4) Mean Corpuscular Volume 90.0 fL (80-100) Mean Corpuscular Hemoglobin 29.9 pg (25-34) Mean Corpuscular Hemoglobin Concent 33.2 g/dl (32-36) RDW Standard Deviation 44.5 fL (36.4-46.3) RDW Coefficient of Variation 13.5 % (11.5-14.5) Mean Platelet Volume 9.1 fL (7.4-10.4) Anion Gap 7.0 mmol/L (3-11) Est Creatinine Clear Calc Drug Dose 99.4 ml/min Estimated GFR () 97.3 Estimated GFR (Non- 83.9 BUN/Creatinine Ratio 8.7 (10-20) Calcium Level 9.1 mg/dl (8.5-10.1) Total Bilirubin 0.3 mg/dl (0.2-1) Direct Bilirubin < 0.1 mg/dl (0-0.2) Aspartate Amino Transf (AST/SGOT) 20 U/L (15-37) Alanine Aminotransferase (ALT/SGPT) 37 U/L (12-78) Alkaline Phosphatase 92 U/L (45-117) Total Protein 7.4 gm/dl (6.4-8.2) Albumin 3.6 gm/dl (3.4-5.0) Thyroid Stimulating Hormone (TSH) 1.830 uIu/ml (0.300-4.500) Salicylates Level 4.0 mg/dl (2.8-20) Acetaminophen Level < 2 ug/ml (10-30) Ethyl Alcohol mg/dL < 3.0 mg/dl (0-3) Laboratory results per my review. Medications Administered Medications (Trade) Dose Ordered Sig/Lorna Route Start Time Stop Time Status Last Admin Dose Admin Acetaminophen/ Codeine Phosphate (Tylenol w/ Codeine #3 Tab) 2 tab NOW ONCE PO 08/03/17 23:30 08/03/17 23:46 DC 08/04/17 00:02 2 TAB Ondansetron HCl (Zofran Odt) 4 mg NOW STAT PO 08/03/17 23:24 08/03/17 23:46 DC 08/04/17 00:01 4 MG Promethazine HCl (Phenergan Tab) 25 mg NOW ONCE PO 08/04/17 02:00 08/04/17 02:01 DC 08/04/17 01:54 25 MG Acetaminophen/ Codeine Phosphate (Tylenol w/ Codeine #3 Tab) 1 tab NOW ONCE PO 08/04/17 05:15 08/04/17 05:16 DC 08/04/17 05:10 1 TAB Procedure Medications administered include :Ondansetron HCl 4 mg PO, Tylenol w/ Codeine # 3 Tab 2 tab PO, Phenergan Tab 25 mg PO, Tylenol w/ Codeine #3 Tab 1 tab PO. ED Course 2307: The patient was evaluated in room A10. A complete history and physical examination were performed. Nursing notes and previous electronic medical records were reviewed. Labs are drawn as above. 2324: The patient went for left lower quadrant abdominal pain and nausea. I Ordered Ondansetron Hcl 4 mg PO. 2330: Ordered Tylenol w/ Codeine #3 Tab 2 tab PO. 0053: I updated the rn case mgr and let him know that the patient is medically cleared. 0058: I reevaluated the patient and her abdominal pain is somewhat better, but her nausea is still present. The staff from [facility] are evaluating her. 0138: I reevaluated the patient and updated her on her results. She reports that she would like to be admitted to [facility] or [facility]. 0200: Ordered Phenergan Tab 25 mg PO. 0515: She continued to complain of left lower quadrant abdominal pain. I did review the ultrasound from her previous ER visit. I Ordered Tylenol w/ Codeine #3 Tab 1 tab PO. 0549: The patient received another Tylenol #3. The patient was refused at [place] and [facility]. She is currently waiting to hear back from the rene. 0700: The patient was signed out to Dr. Vargas. Medical Decision The patient is a 47 year old female who presents to the ED with worsening sleep problems and abdominal pain. Differential diagnosis includes left lower quadrant abdominal pain secondary to ovary remnant, thought disorder, and sleep deprivation. Lab results show: Negative alcohol and Tylenol levels, Salicylates 4, urine toxicology negative, normal glucose and TSH, normal renal function, Stable H&H and white blood count. The patient has a known left ovarian remnant now has a 2 cm cyst on it and seems to be the source of her chronic abdominal pain. The patient describes increased sleep deprivation and visual and not a touring hallucinations. She is requesting inpatient psychiatric care to that she does not become suicidal and she was last week. Medication Reconcilliation Current Medication List: was personally reviewed by me Blood Pressure Screening Patient's blood pressure: Elevated blood pressure Blood pressure disposition: Elevated BP felt to be situational Impression Primary Impression: Thought disorder Scribe Attestation The scribe's documentation has been prepared under my direction and personally reviewed by me in its entirety. I confirm that the note above accurately reflects all work, treatment, procedures, and medical decision making performed by me. Departure Information Dispostion Still a Patient Referrals No Doctor, Assigned (PCP) Patient Instructions My [facility]
[2017-08-03] MEDS ORDERED: ACETAMINOPHEN/CODEINE 300/30MG TAB PO ONE (23:30)
[2017-08-03 23:38] LABS: HEMATOCRIT 38.5 % (37-47); MEAN CORPUSCULAR HEMOGLOBIN 29.9 pg (25-34); MEAN CORPUSCULAR HGB CONC 33.2 g/dl (32-36); MEAN PLATELET VOLUME 9.1 fL (7.4-10.4); PLATELET COUNT 244 K/uL (130-400); RED BLOOD COUNT 4.28 M/uL (4.2-5.4); WHITE BLOOD COUNT 10.39 K/uL (4.8-10.8)
[2017-08-03 23:56] LABS: ALT/SGPT 37 U/L (12-78); BLOOD UREA NITROGEN 7 mg/dl (7-18); BUN/CREATININE RATIO 8.7 (10-20); CALCIUM 9.1 mg/dl (8.5-10.1); CARBON DIOXIDE 27 mmol/L (21-32); CHLORIDE 105 mmol/L (98-107); CREATININE 0.84 mg/dl (0.60-1.20); GLUCOSE 93 mg/dl (70-99); POTASSIUM 3.7 mmol/L (3.5-5.1); SODIUM 139 mmol/L (136-145)
[2017-08-04 00:07] LABS: ACETAMINOPHEN < 2 ug/ml (10-30); ALKALINE PHOSPHATASE 92 U/L (45-117); AST/SGOT 20 U/L (15-37)
[2017-08-04 00:16] LABS: BENZODIAZEPINE, URINE NEG (NEG); COCAINE,URINE NEG (NEG); PHENCYCLIDINE, URINE NEG (NEG)
[2017-08-04] MEDS ORDERED: PROMETHAZINE HCL 25 MG TAB PO ONE (02:00)
[2017-08-04] MEDS ORDERED: ACETAMINOPHEN/CODEINE 300/30MG TAB PO ONE (05:15)
--- NOTE | 2017-08-04 07:15 | EMERGENCY ROOM VISIT NOTE ---
ED Visit Note First contact with patient: 08:26 Received pt in sign out. History and physical verified by me. Pt has been accepted by the [facility] and is awaiting transport. Pt given her morning effexor. Problem List Medical Problems: (1) Adjustment disorder Status: Chronic (2) Asthma Status: Chronic (3) Depression Status: Chronic (4) Diverticulosis Colon (W/O Ment Of Hemorrhage) Status: Chronic (5) Drug overdose, intentional Status: Chronic (6) DWAYNE (generalized anxiety disorder) Status: Chronic (7) Gastroparesis Status: Chronic (8) HLD (hyperlipidemia) Status: Chronic (9) IBS (irritable bowel syndrome) Status: Chronic (10) Migraine Status: Chronic (11) Postconcussion Syndrome Status: Chronic (12) Posttraumatic Stress Disorder Status: Chronic (13) Suicide attempt by drug ingestion Status: Chronic (14) Tobacco abuse Status: Chronic Surgical Problems: (1) H/O colonoscopy Status: Chronic (2) H/O esophagogastroduodenoscopy Status: Chronic (3) H/O tubal ligation Status: Chronic (4) H/O unilateral oophorectomy Status: Chronic (5) History of partial colectomy Permanent Comment: due to recurrent diverticulitis Status: Chronic (6) Hx of appendectomy Status: Chronic (7) Hx of tonsillectomy Status: Chronic (8) S/P cholecystectomy Status: Chronic (9) S/P MARLON (total abdominal hysterectomy) Status: Chronic Current/Historical Medications Scheduled Clonidine Hcl (Catapres), 0.1 MG PO HS Famotidine (Famotidine), 20 MG PO BID Pyridoxine Hcl (Vitamin B6 100 Mg), 100 MG PO DAILY Venlafaxine Hcl (Effexor Extended Rel), 150 MG PO DAILY Venlafaxine Hcl (Venlafaxine Hcl Er), 75 MG PO DAILY Scheduled PRN Albuterol Hfa (Ventolin Hfa), 2 PUFFS INH Q4H PRN for Wheezing Clonazepam (Klonopin), 1 MG PO BID PRN for Anxiety Epinephrine (Epipen 2-Cisco), 0.3 MG IM UD PRN for ALLERGIC REACTION Fexofenadine Hcl (Hollie Allergy), 1 TAB PO DAILY PRN for allergies Furosemide (Furosemide), 40 MG PO DAILY PRN for EDEMA Allergies Coded Allergies: Ibuprofen (Verified Allergy, Severe, SOB-HIVES, 08/03/17) Iodinated Diagnostic Agents (Verified Allergy, Intermediate, HIVES, ) Tramadol (Verified Allergy, Intermediate, HIVES, 08/03/17) Penicillins (Verified Allergy, Mild, *, 08/03/17) Moxifloxacin (Verified Allergy, Unknown, UNKNOWN, 08/03/17) Sulfa Antibiotics (Verified Allergy, Unknown, unkn, 08/03/17) as a child Haloperidol (Verified Adverse Reaction, Intermediate, "KEEPS ME AWAKE, CAN 'T SLEEP"., 08/03/17) Ketorolac Tromethamine (Verified Adverse Reaction, Intermediate, "TEARS STOMACH UP", 08/03/17) Prochlorperazine (Verified Adverse Reaction, Unknown, ANXIETY/JITTERY/ HYPOTENSION, 08/03/17) Vital Signs Date Time Temp Pulse Resp B/P (MAP) Pulse Ox O2 Delivery O2 Flow Rate FiO2 08/04/17 08:41 84 18 124/57 98 Room Air 08/04/17 00:05 90 16 147/108 98 Room Air 08/03/17 22:29 36.8 106 20 162/100 98 Room Air Laboratory Results 08/03/17 23:29 08/03/17 23:29 Test 08/03/17 22:20 08/03/17 23:29 Urine Opiates Screen NEG (NEG) Urine Methadone, Qualitative NEG (NEG) Urine Barbiturates NEG (NEG) Urine Phencyclidine (PCP) Level NEG (NEG) Ur Amphetamine/Methamphetamine NEG (NEG) MDMA (Ecstasy) Screen NEG (NEG) Urine Benzodiazepines Screen NEG (NEG) Urine Cocaine Metabolite NEG (NEG) Urine Marijuana (THC) NEG (NEG) Red Blood Count 4.28 M/uL (4.2-5.4) Mean Corpuscular Volume 90.0 fL (80-100) Mean Corpuscular Hemoglobin 29.9 pg (25-34) Mean Corpuscular Hemoglobin Concent 33.2 g/dl (32-36) RDW Standard Deviation 44.5 fL (36.4-46.3) RDW Coefficient of Variation 13.5 % (11.5-14.5) Mean Platelet Volume 9.1 fL (7.4-10.4) Anion Gap 7.0 mmol/L (3-11) Est Creatinine Clear Calc Drug Dose 99.4 ml/min Estimated GFR () 97.3 Estimated GFR (Non- 83.9 BUN/Creatinine Ratio 8.7 (10-20) Calcium Level 9.1 mg/dl (8.5-10.1) Total Bilirubin 0.3 mg/dl (0.2-1) Direct Bilirubin < 0.1 mg/dl (0-0.2) Aspartate Amino Transf (AST/SGOT) 20 U/L (15-37) Alanine Aminotransferase (ALT/SGPT) 37 U/L (12-78) Alkaline Phosphatase 92 U/L (45-117) Total Protein 7.4 gm/dl (6.4-8.2) Albumin 3.6 gm/dl (3.4-5.0) Thyroid Stimulating Hormone (TSH) 1.830 uIu/ml (0.300-4.500) Salicylates Level 4.0 mg/dl (2.8-20) Acetaminophen Level < 2 ug/ml (10-30) Ethyl Alcohol mg/dL < 3.0 mg/dl (0-3) Medications Administered Medications (Trade) Dose Ordered Sig/Lorna Route Start Time Stop Time Status Last Admin Dose Admin Acetaminophen/ Codeine Phosphate (Tylenol w/ Codeine #3 Tab) 2 tab NOW ONCE PO 08/03/17 23:30 08/03/17 23:46 DC 08/04/17 00:02 2 TAB Ondansetron HCl (Zofran Odt) 4 mg NOW STAT PO 08/03/17 23:24 08/03/17 23:46 DC 08/04/17 00:01 4 MG Promethazine HCl (Phenergan Tab) 25 mg NOW ONCE PO 08/04/17 02:00 08/04/17 02:01 DC 08/04/17 01:54 25 MG Acetaminophen/ Codeine Phosphate (Tylenol w/ Codeine #3 Tab) 1 tab NOW ONCE PO 08/04/17 05:15 08/04/17 05:16 DC 08/04/17 05:10 1 TAB Venlafaxine HCl (effeXOR EXTENDED REL CAP) 150 mg NOW STAT PO 08/04/17 08:46 08/04/17 08:48 DC 08/04/17 09:08 150 MG Venlafaxine HCl (effeXOR EXTENDED REL CAP) 75 mg NOW STAT PO 08/04/17 08:46 08/04/17 08:48 DC 08/04/17 09:09 75 MG Departure Information Impression Primary Impression: Thought disorder Dispostion Still a Patient Referrals No Doctor, Assigned Patient Instructions My [facility]
[2017-08-04] MEDS ORDERED: VENLAFAXINE HCL XR 150 MG CAPXR PO STA (08:46)
[2017-08-04] MEDS ORDERED: VENLAFAXINE HCL XR 75 MG CAPXR PO STA (08:46)
[2017-08-04] MEDS ORDERED: ACETAMINOPHEN/CODEINE 300/30MG TAB PO STA (10:42)
[2017-08-04 11:36] VITALS: BP 138/64; PULSE 84; TEMP 36.8; O2SAT 98
== END 2017-08-04 11:38 ==
LOC: C.EDB 22:28 → C.EDA 08-04 11:38
DX: F22 Delusional disorders (principal); J45.909 Unspecified asthma, uncomplicated; F32.9 Major depressive disorder, single episode, unspecified; F41.1 Generalized anxiety disorder; N83.202 Unspecified ovarian cyst, left side; F17.200 Nicotine dependence, unspecified, uncomplicated; Z87.820 Personal history of traumatic brain injury; Z91.5 Personal history of self-harm; Z98.51 Tubal ligation status; Z90.49 Acquired absence of other specified parts of digestive tract; Z90.721 Acquired absence of ovaries, unilateral; Z90.710 Acquired absence of both cervix and uterus; Z90.89 Acquired absence of other organs; Z98.890 Other specified postprocedural states; Z82.49 Family history of ischemic heart disease and other diseases of the circulatory system; Z79.899 Other long term (current) drug therapy

== ENCOUNTER 2017-08-06 21:35 | Emergency (ER) | payer OTHER ==
[~2017-08-06] VITALS: Ht 165.1 cm; Wt 100.0 kg
[~2017-08-06 21:35] MED LIST changes: +CTP/1 PO; -HALO2TAB PO; +VENL-273 PO; -VENL37.593 PO
[2017-08-06 21:42] VITALS: TEMP 36.6; Ht 165.1 cm; Wt 100.0 kg
[2017-08-06 22:35] LABS: BASO % 0.6 %; BASO ABS # 0.06 K/uL (0-0.2); COMPLETE YES; EOS % 5.9 %; HEMATOCRIT 40.3 % (37-47); IG% 0.1 %; LYMPH % 36.5 %; LYMPH ABS # 3.39 K/uL (1.2-3.4); MEAN CELL VOLUME 90.6 fL (80-100); MEAN CORPUSCULAR HEMOGLOBIN 29.9 pg (25-34); MEAN PLATELET VOLUME 9.4 fL (7.4-10.4); MONO % 6.6 %; NEUT % 50.3 %; PLATELET COUNT 238 K/uL (130-400); RED BLOOD COUNT 4.45 M/uL (4.2-5.4); WHITE BLOOD COUNT 9.29 K/uL (4.8-10.8)
[2017-08-06 22:38] LABS: URINE APPEARANCE CLEAR (CLEAR); URINE BILIRUBIN NEG (NEG); URINE COLOR YELLOW; URINE NITRITE NEG (NEG); URINE SPECIFIC GRAVITY 1.013 (1.000-1.030); UROBILINOGEN NEG (NEG); ZZURINE CULT IF INDIC CATH NO
[2017-08-06 22:43] LABS: MANUAL MICROSCOPIC REQUIRED? NO; REVIEW REQ? NO
[2017-08-06] MEDS ORDERED: SRQ100 PO (22:45)
[2017-08-06] MEDS ORDERED: CTP1CL PO (22:45)
[2017-08-06 22:53] LABS: BUN/CREATININE RATIO 11.5 (10-20); CALCIUM 8.9 mg/dl (8.5-10.1); CREATININE 1.07 mg/dl (0.60-1.20)
[2017-08-06 22:56] LABS: ALB/GLOB RATIO 0.9 (0.9-2)
[2017-08-07] MEDS ORDERED: ONDANSETRON INJ 2 MG/ML 2 ML VIAL IV STA (00:13)
[2017-08-07] MEDS ORDERED: PROMETHAZINE HCL INJ 25 MG in SODIUM CHLORIDE 0.9% 50ML 50 ML IV STA (00:17)
[2017-08-07] MEDS ORDERED: ACETAMINOPHEN IV 100 ML IV STA (00:17)
--- NOTE | 2017-08-07 00:40 | EMERGENCY ROOM VISIT NOTE ---
History First contact with patient: 21:59 Chief Complaint: URINARY SYMPTOMS Stated Complaint: UNABLE TO VOID, AB PAIN Nursing Triage Summary: Patient c/o inability to void x12 hours. States, "I have the urge, but nothing comes out." Hx of this occuring prior. States, "I went right into surergy because I had ovarian remnents and a cyst." Currently at the [facility] for insomnia. History of Present Illness The patient is a 47 year old female who presents to the Emergency Room with complaints of difficulty urinating and left lower quadrant abdominal pain. The patient reports that yesterday, she noticed blood in her urine and noticed this again this morning. She states since then, she has been unable to urinate. She reports she has had pain in the left lower abdomen. She states that she has had a hysterectomy with bilateral oophorectomy, however she has left ovarian remnants and developed a cyst. She states that she has had surgery for this in the past. She has been seen at [place] for similar symptoms previously. Her [facility] GRINDER is in [place]. The patient was seen here for similar symptoms earlier this month. She is currently inpatient at the [facility] for psychiatric issues. She denies any fevers/chills, nausea, vomiting or changes in bowel movements. Review of Systems A complete 10 point review of systems was reviewed with the patient with pertinent positives and negatives as per history of present illness. All else were negative. Past Medical/Surgical History Medical Problems: (1) Adjustment disorder (2) Asthma (3) Depression (4) Diverticulosis Colon (W/O Ment Of Hemorrhage) (5) Drug overdose, intentional (6) DWAYNE (generalized anxiety disorder) (7) Gastroparesis (8) HLD (hyperlipidemia) (9) IBS (irritable bowel syndrome) (10) Migraine (11) Postconcussion Syndrome (12) Posttraumatic Stress Disorder (13) Suicide attempt by drug ingestion (14) Tobacco abuse Surgical Problems: (1) H/O colonoscopy (2) H/O esophagogastroduodenoscopy (3) H/O tubal ligation (4) H/O unilateral oophorectomy (5) History of partial colectomy (6) Hx of appendectomy (7) Hx of tonsillectomy (8) S/P cholecystectomy (9) S/P MARLON (total abdominal hysterectomy) Family History FH: heart disease MOTHER ( from [place] at age 66) BROTHER (details unknown) Heart valve abnormality SISTER Social History Smoking Status: Never Smoker Alcohol Use: none Marital Status: single Housing Status: lives alone Occupation Status: employed Current/Historical Medications Scheduled Clonidine Hcl (Catapres), 0.2 MG PO HS Famotidine (Famotidine), 20 MG PO BID Pyridoxine Hcl (Vitamin B6 100 Mg), 100 MG PO DAILY Quetiapine Fumarate (Quetiapine Fumarate), 100 MG PO HS Venlafaxine Hcl (Effexor Extended Rel), 150 MG PO DAILY Venlafaxine Hcl (Venlafaxine Hcl Er), 75 MG PO DAILY Scheduled PRN Albuterol Hfa (Ventolin Hfa), 2 PUFFS INH Q4H PRN for Wheezing Clonazepam (Klonopin), 1 MG PO BID PRN for Anxiety Epinephrine (Epipen 2-Cisco), 0.3 MG IM UD PRN for ALLERGIC REACTION Fexofenadine Hcl (Hollie Allergy), 1 TAB PO DAILY PRN for allergies Furosemide (Furosemide), 40 MG PO DAILY PRN for EDEMA Physical Exam Vital Signs Date Time Temp Pulse Resp B/P (MAP) Pulse Ox O2 Delivery O2 Flow Rate FiO2 08/07/17 01:15 83 18 119/76 95 08/06/17 23:37 81 20 136/91 95 Room Air 08/06/17 21:42 36.6 79 18 171/111 98 Room Air Physical Exam VITALS: Vitals are noted on the nurse's note and reviewed by myself. Vital signs stable. GENERAL: This is a 47-year-old., in no acute distress, nondiaphoretic, well- developed well-nourished. SKIN: The skin was without rashes. HEAD: Normocephalic atraumatic. EARS: External auditory canals clear, tympanic membranes pearly alvarez without erythema or effusion bilaterally. EYES: Pupils equal round and reactive to light and accommodation. NECK: Supple without nuchal rigidity. No lymphadenopathy. HEART: Regular rate and rhythm without murmurs gallops or rubs. LUNGS: Clear to auscultation bilaterally without wheezes, rales or rhonchi. ABDOMEN: Positive bowel sounds x 4. Soft, moderate tenderness to palpation in the left lower quadrant. No guarding or rebound tenderness. NEURO: Patient was alert and oriented to person place and time. Medical Decision & Procedures ER Provider Diagnostic Interpretation: KUB: Constipation with no evidence of bowel obstruction. US PELVIC/ENDOVAG: Status post hysterectomy. Right ovary is not identified. As noted previously, the left ovary remains. It demonstrates a 1.4 cm simple cyst. No evidence of torsion. Radiologist: Servando Coronel MD Laboratory Results 08/06/17 22:20 Red Blood Count 4.45, Mean Corpuscular Volume 90.6, Mean Corpuscular Hemoglobin 29.9, Mean Corpuscular Hemoglobin Concent 33.0, Mean Platelet Volume 9.4, Neutrophils (%) (Auto) 50.3, Lymphocytes (%) (Auto) 36.5, Monocytes (%) (Auto) 6.6, Eosinophils (%) (Auto) 5.9, Basophils (%) (Auto) 0.6, Neutrophils # (Auto) 4.67, Lymphocytes # (Auto) 3.39, Monocytes # (Auto) 0.61, Eosinophils # (Auto) 0.55, Basophils # (Auto) 0.06 08/06/17 22:20 Test 08/06/17 22:20 White Blood Count 9.29 K/uL (4.8-10.8) Red Blood Count 4.45 M/uL (4.2-5.4) Hemoglobin 13.3 g/dL (12.0-16.0) Hematocrit 40.3 % (37-47) Mean Corpuscular Volume 90.6 fL (80-100) Mean Corpuscular Hemoglobin 29.9 pg (25-34) Mean Corpuscular Hemoglobin Concent 33.0 g/dl (32-36) Platelet Count 238 K/uL (130-400) Mean Platelet Volume 9.4 fL (7.4-10.4) Neutrophils (%) (Auto) 50.3 % Lymphocytes (%) (Auto) 36.5 % Monocytes (%) (Auto) 6.6 % Eosinophils (%) (Auto) 5.9 % Basophils (%) (Auto) 0.6 % Neutrophils # (Auto) 4.67 K/uL (1.4-6.5) Lymphocytes # (Auto) 3.39 K/uL (1.2-3.4) Monocytes # (Auto) 0.61 K/uL (0.11-0.59) Eosinophils # (Auto) 0.55 K/uL (0-0.5) Basophils # (Auto) 0.06 K/uL (0-0.2) RDW Standard Deviation 44.2 fL (36.4-46.3) RDW Coefficient of Variation 13.3 % (11.5-14.5) Immature Granulocyte % (Auto) 0.1 % Immature Granulocyte # (Auto) 0.01 K/uL (0.00-0.02) Urine Color YELLOW Urine Appearance CLEAR (CLEAR) Urine pH 6.0 (4.5-7.5) Urine Specific [place] 1.013 (1.000-1.030) Urine Protein NEG (NEG) Urine Glucose (UA) NEG (NEG) Urine Ketones NEG (NEG) Urine Occult Blood NEG (NEG) Urine Nitrite NEG (NEG) Urine Bilirubin NEG (NEG) Urine Urobilinogen NEG (NEG) Urine Leukocyte Esterase NEG (NEG) Anion Gap 7.0 mmol/L (3-11) Est Creatinine Clear Calc Drug Dose 77.8 ml/min Estimated GFR () 72.6 Estimated GFR (Non- 62.6 BUN/Creatinine Ratio 11.5 (10-20) Calcium Level 8.9 mg/dl (8.5-10.1) Total Bilirubin 0.2 mg/dl (0.2-1) Aspartate Amino Transf (AST/SGOT) 28 U/L (15-37) Alanine Aminotransferase (ALT/SGPT) 77 U/L (12-78) Alkaline Phosphatase 91 U/L (45-117) Total Protein 7.5 gm/dl (6.4-8.2) Albumin 3.6 gm/dl (3.4-5.0) Globulin 3.9 gm/dl (2.5-4.0) Albumin/Globulin Ratio 0.9 (0.9-2) Lipase 122 U/L (73-393) Medications Administered Medications (Trade) Dose Ordered Sig/Lorna Route Start Time Stop Time Status Last Admin Dose Admin Acetaminophen 100 ml @ 400 mls/hr NOW STAT IV 08/07/17 00:17 08/07/17 00:31 DC 08/07/17 00:27 400 MLS/HR Promethazine HCl 25 mg/Sodium Chloride 51 ml @ 204 mls/hr NOW STAT IV 08/07/17 00:17 08/07/17 00:31 DC 08/07/17 00:27 204 MLS/HR ED Course The patient was evaluated as above. Labs were drawn and IV access was obtained. Pelvic ultrasound was performed and read by adeel as above. Patient was reevaluated and findings were discussed. She requested IV Tylenol and Phenergan. These were ordered for the patient. Discharge instructions were reviewed with the patient. The patient verbalized understanding of my assessment and treatment plan and was discharged home in good condition. Medical Decision Differential diagnosis includes renal calculus, urinary tract infection, ovarian cyst, ovarian torsion, diverticulitis, colitis, appendicitis, among others. The patient is a 47-year-old female who presents today complaining of urinary retention and left lower quadrant abdominal pain. Bladder scan did reveal over 800 mL in the bladder. Straight cath was performed and the bladder was drained. Urinalysis was not suggestive of infection. There was no blood in the urine. Labs were completely unremarkable, with no leukocytosis, anemia or concerning electrolyte abnormalities. A pelvic ultrasound was performed and showed a left ovarian cyst. The patient was here within the past 2 weeks for similar symptoms and had a negative CT scan performed at that time. She is afebrile. There is no back pain or leg numbness to suggest cauda equina syndrome. She has been here multiple times for abdominal pain in the past. She was advised to follow-up with her [employer] [employer] and primary care provider and return here if she has any worsening symptoms. The patient's case was reviewed with Dr. Anderson, ED attending physician, who agreed with my assessment and treatment plan. Based on the patient's presentation and work up, I feel the patient is stable for outpatient treatment. The patient was educated to return to the emergency department for any worsening of their current condition or new/concerning symptoms. She will follow up with her PCP and [facility]. Medication Reconcilliation Current Medication List: was personally reviewed by me Blood Pressure Screening Patient's blood pressure: Normal blood pressure Impression Primary Impression: Abdominal pain, left lower quadrant Additional Impression: Urinary retention Departure Information Dispostion Home / Self-Care Condition GOOD Referrals Holland Naik M.D. (PCP) Patient Instructions My [facility] Additional Instructions You have been treated in the Emergency Department for your Abdominal Pain. Laboratory results and imaging studies have ruled out any emergent causes for your abdominal pain which would warrant admission or surgery. For pain control, you can use the following [id number] medicines (if >12 yo): - Regular strength (325mg/tab) Tylenol (acetaminophen) 2 tabs every 4-6 hours as needed. Do not exceed 12 tablets in a 24 hour period. Avoid taking more than 4 grams (4000 mg) of Tylenol per day. This includes any other sources of acetaminophen you may take on a regular basis. - Regular strength (200 mg/tab) Advil (ibuprofen) 1-2 tabs every 4-6 hours as needed. Do not exceed a dose of 3200 mg per day. Drink plenty of water and stay well hydrated. As with any trip to the Emergency Department, you should follow-up with your Primary Care Provider from today's visit. You have a left sided ovarian cyst. You need to follow-up with [facility] [employer] regarding this. Return to the emergency department if your symptoms persist despite treatment plan outlined above or if the following symptoms occur: increased fevers, chills , worsening nausea/vomiting, blood in your stool or urine. Problem Qualifiers
[2017-08-07 01:15] VITALS: BP 119/76; PULSE 83; O2SAT 95
--- NOTE | 2017-08-07 06:45 | DIAGNOSTIC IMAGING REPORT ---
EXAMINATION: PELVIC ULTRASOUND (transabdominal and endovaginal scanning). CLINICAL HISTORY: LLQ pain COMPARISON STUDY: 07/16/2016 FINDINGS: The patient is status post a hysterectomy. The right ovary is not visualized. There is a 14 mm cystic lesion within the left adnexa, likely representing a left ovarian follicle. IMPRESSION: 1. Surgically absent uterus 2. Nonvisualization the right ovary 3. 14 mm left ovarian follicle Electronically signed by: Sp García M.D. 08/07/2017 6:43 AM Dictated Date/Time: 08/07/2017 6:41 AM
--- NOTE | 2017-08-07 07:13 | DIAGNOSTIC IMAGING REPORT ---
KUB CLINICAL HISTORY: LLQ abd pain COMPARISON STUDY: 04/19/2017 FINDINGS: Postsurgical changes are evident. There are surgical clips within the right upper quadrant consistent with a prior cholecystectomy. There is a surgical anastomotic suture line at the level of the sigmoid. There is mild fecal retention. There is no pathologic bowel dilatation. There are nonspecific pelvic basin calcifications. While likely resulting phleboliths, a distal ureteral calculus cannot be excluded with certainty. IMPRESSION: 1. No evidence of pathologic bowel dilatation 2. Nonspecific pelvic basin calcifications, likely represent phleboliths.. Electronically signed by: Sp García M.D. 08/07/2017 7:12 AM Dictated Date/Time: 08/07/2017 7:10 AM
== END 2017-08-07 01:10 | disposition home or self-care (01) ==
LOC: EDBD 21:35 → C.EDC 21:36
DX: R10.32 Left lower quadrant pain (principal); R33.9 Retention of urine, unspecified; J45.909 Unspecified asthma, uncomplicated; F41.1 Generalized anxiety disorder; Z91.5 Personal history of self-harm; Z87.820 Personal history of traumatic brain injury; Z90.722 Acquired absence of ovaries, bilateral; Z90.710 Acquired absence of both cervix and uterus; Z90.49 Acquired absence of other specified parts of digestive tract; Z90.89 Acquired absence of other organs; Z98.51 Tubal ligation status; Z98.890 Other specified postprocedural states; Z82.49 Family history of ischemic heart disease and other diseases of the circulatory system; Z79.899 Other long term (current) drug therapy

== ENCOUNTER 2017-08-07 18:55 | Emergency (ER) | payer OTHER ==
[~2017-08-07] VITALS: Ht 165.1 cm; Wt 98.7 kg
[~2017-08-07 18:55] MED LIST changes: -CTP/1 PO; +CTP1CL PO; +SRQ100 PO
[2017-08-07 19:08] VITALS: TEMP 37; Ht 165.1 cm; Wt 98.7 kg
--- NOTE | 2017-08-07 19:43 | EMERGENCY ROOM VISIT NOTE ---
History First contact with patient: 19:13 Chief Complaint: UNABLE TO VOID Stated Complaint: UNABLE TO VOID FOR 10 HRS, PAIN History of Present Illness The patient is a 47 year old female who presents to the Emergency Room with complaints of urinary retention -Pt describes having the urge to urinate, but is unable to void. -Pt says that she had blood in her urine 2 days ago, but denies any blood since. -Pt came to the ED last night for the same complaint and a straight cath was placed. -Pt says that the last time she voided was 10 hrs ago at 9 am -Pt feels nauseous, but denies vomiting. -Pt describes a h/o pelvic adhesions and ovarian cyst. Pt says that she has received laparoscopic procedures 1.5 years ago -Pt has a significant psychiatric history: anxiety, depression, suicide ideation , insomnia with hallucinations. -Pt is currently a patient at the [facility] Review of Systems see below Constitutional: No fever, No chills, No sweats Respiratory: No cough, No sputum, No wheezing Cardiovascular: No chest pain Abdomen: + pain, + nausea, No vomiting, No diarrhea Genitourinary - Female: + urinary urgency, + urinary retention, No dysuria, No urinary frequency, No urinary incontinence, No hematuria Past Medical/Surgical History Medical Problems: (1) Adjustment disorder (2) Asthma (3) Depression (4) Diverticulosis Colon (W/O Ment Of Hemorrhage) (5) Drug overdose, intentional (6) DWAYNE (generalized anxiety disorder) (7) Gastroparesis (8) HLD (hyperlipidemia) (9) IBS (irritable bowel syndrome) (10) Migraine (11) Postconcussion Syndrome (12) Posttraumatic Stress Disorder (13) Suicide attempt by drug ingestion (14) Tobacco abuse Surgical Problems: (1) H/O colonoscopy (2) H/O esophagogastroduodenoscopy (3) H/O tubal ligation (4) H/O unilateral oophorectomy (5) History of partial colectomy (6) Hx of appendectomy (7) Hx of tonsillectomy (8) S/P cholecystectomy (9) S/P MARLON (total abdominal hysterectomy) Family History FH: heart disease MOTHER ( from [place] at age 66) BROTHER (details unknown) Heart valve abnormality SISTER Social History Smoking Status: Current Every Day Smoker Alcohol Use: none Marital Status: single Housing Status: lives alone Occupation Status: employed Current/Historical Medications Scheduled Clonidine Hcl (Catapres), 0.2 MG PO HS Famotidine (Famotidine), 20 MG PO BID Pyridoxine Hcl (Vitamin B6 100 Mg), 100 MG PO DAILY Quetiapine Fumarate (Quetiapine Fumarate), 100 MG PO HS Venlafaxine Hcl (Effexor Extended Rel), 150 MG PO DAILY Venlafaxine Hcl (Venlafaxine Hcl Er), 75 MG PO DAILY Scheduled PRN Albuterol Hfa (Ventolin Hfa), 2 PUFFS INH Q4H PRN for Wheezing Clonazepam (Klonopin), 1 MG PO BID PRN for Anxiety Epinephrine (Epipen 2-Cisco), 0.3 MG IM UD PRN for ALLERGIC REACTION Fexofenadine Hcl (Hollie Allergy), 1 TAB PO DAILY PRN for allergies Furosemide (Furosemide), 40 MG PO DAILY PRN for EDEMA Physical Exam Vital Signs Date Time Temp Pulse Resp B/P (MAP) Pulse Ox O2 Delivery O2 Flow Rate FiO2 08/07/17 22:07 90 20 121/79 97 08/07/17 21:29 98 20 132/87 98 Room Air 08/07/17 19:08 37.0 102 20 126/90 97 Room Air Physical Exam see below General Appearance: WD/WN, no apparent distress Head: normocephalic, atraumatic Neck: supple, no adenopathy Respiratory/Chest: chest non-tender, lungs clear, normal breath sounds, no respiratory distress, no accessory muscle use Cardiovascular: regular rate, rhythm, no edema, no murmur Abdomen / GI: normal bowel sounds, soft, no organomegaly, no pulsatile mass , + pertinent finding (Diffused abdominal tenderness) Back: normal inspection, no CVA tenderness Medical Decision & Procedures Medications Administered Medications (Trade) Dose Ordered Sig/Lorna Route Start Time Stop Time Status Last Admin Dose Admin Ondansetron HCl (Zofran Inj) 4 mg NOW STAT IV 08/07/17 19:49 08/07/17 19:55 DC 08/07/17 20:41 4 MG Acetaminophen 1000 mg/Empty Bag 100 ml @ 400 mls/hr Q8H STAT IV 08/07/17 20:16 08/07/17 20:30 DC 08/07/17 20:42 400 MLS/HR ED Course 19:30 History and physical exam 20:00 order bladder scan, indwelling Rosen catheter and IV Tylenol for pain control 20:30 Reaccessed the patient. Pt is feeling much better 21:00 Case management in contact with [facility] regarding discharge planning Medical Decision 47 yo female comes to the ED with urinary retention for 10 hours. -Pt has the urge to urinate, but is unable to void -Considering the following differential: pelvic organ prolapse (cystocele, rectocele) pelvic mass, urethral diverticulum, renal/ureter calculi -Pt was worked up for potential causes during previous ED visit () -Following labs were performed: CBC, CMP, UA. All were normal -Following imaging was performed: KUB, pelvic and transvaginal USG -Pelvic and transvaginal USG demonstrate 14 mm left ovarian follicle Today: -Performed a bladder scan -Decompressed the bladder with in-dwelling Rosen catheter -Pt provided IV Tylenol for pain Pt advised to follow-up with [facility] Pt is being discharged to the [facility]. [facility] do not allow in-dwelling Rosen catheters. Therefore, the patient is discharged with the orders to be straight cathed by [facility] staff when needed. Impression Primary Impression: Urinary retention Departure Information Dispostion Home / Self-Care Condition GOOD Referrals Holland Naik M.D. (PCP) Patient Instructions My [facility] Additional Instructions Mrs. Matthews, Lawrence are being discharged back to [place]. You are experiencing urinary retention. During last night's visit (08/06), labs and UA were normal. Imaging showed a 14mm left ovarian follicle which is consistent with an ovarian cyst. The exact cause of your urinary retention is not know at this time. In order to determine a potential cause, you need a outpatient work-up with a urologist. In addition, you need to follow up with a element burner regarding you ovarian cyst. Please contact central scheduling at [facility]: [phone] to schedule urology and gynecologic outpatient visits. [facility]ention [facility] Staff: please straight cath patient every 4-6 hours.
[2017-08-07] MEDS ORDERED: ONDANSETRON INJ 2 MG/ML 2 ML VIAL IV STA (19:49)
[2017-08-07] MEDS ORDERED: ACETAMINOPHEN 500 MG TAB PO STA (19:49)
--- NOTE | 2017-08-07 19:57 | EMERGENCY ROOM VISIT NOTE ---
ED Visit Note First contact with patient: 19:13 Resident Physician Supervision Note: I interviewed and examined the patient. Discussed with Dr. Heck and agree with findings and plan as documented in the note. Documented By: Guy Vargas Problem List Medical Problems: (1) Adjustment disorder Status: Chronic (2) Asthma Status: Chronic (3) Depression Status: Chronic (4) Diverticulosis Colon (W/O Ment Of Hemorrhage) Status: Chronic (5) Drug overdose, intentional Status: Chronic (6) DWAYNE (generalized anxiety disorder) Status: Chronic (7) Gastroparesis Status: Chronic (8) HLD (hyperlipidemia) Status: Chronic (9) IBS (irritable bowel syndrome) Status: Chronic (10) Migraine Status: Chronic (11) Postconcussion Syndrome Status: Chronic (12) Posttraumatic Stress Disorder Status: Chronic (13) Suicide attempt by drug ingestion Status: Chronic (14) Tobacco abuse Status: Chronic Surgical Problems: (1) H/O colonoscopy Status: Chronic (2) H/O esophagogastroduodenoscopy Status: Chronic (3) H/O tubal ligation Status: Chronic (4) H/O unilateral oophorectomy Status: Chronic (5) History of partial colectomy Permanent Comment: due to recurrent diverticulitis Status: Chronic (6) Hx of appendectomy Status: Chronic (7) Hx of tonsillectomy Status: Chronic (8) S/P cholecystectomy Status: Chronic (9) S/P MARLON (total abdominal hysterectomy) Status: Chronic Current/Historical Medications Scheduled Clonidine Hcl (Catapres), 0.2 MG PO HS Famotidine (Famotidine), 20 MG PO BID Pyridoxine Hcl (Vitamin B6 100 Mg), 100 MG PO DAILY Quetiapine Fumarate (Quetiapine Fumarate), 100 MG PO HS Venlafaxine Hcl (Effexor Extended Rel), 150 MG PO DAILY Venlafaxine Hcl (Venlafaxine Hcl Er), 75 MG PO DAILY Scheduled PRN Albuterol Hfa (Ventolin Hfa), 2 PUFFS INH Q4H PRN for Wheezing Clonazepam (Klonopin), 1 MG PO BID PRN for Anxiety Epinephrine (Epipen 2-Cisco), 0.3 MG IM UD PRN for ALLERGIC REACTION Fexofenadine Hcl (Hollie Allergy), 1 TAB PO DAILY PRN for allergies Furosemide (Furosemide), 40 MG PO DAILY PRN for EDEMA Allergies Coded Allergies: Ibuprofen (Verified Allergy, Severe, SOB-HIVES, 08/07/17) Iodinated Diagnostic Agents (Verified Allergy, Intermediate, HIVES, ) Tramadol (Verified Allergy, Intermediate, HIVES, 08/07/17) Penicillins (Verified Allergy, Mild, ANAPHYLAXIS, 08/07/17) Moxifloxacin (Verified Allergy, Unknown, UNKNOWN, 08/07/17) Sulfa Antibiotics (Verified Allergy, Unknown, unkn, 08/07/17) as a child Haloperidol (Verified Adverse Reaction, Intermediate, "KEEPS ME AWAKE, CAN 'T SLEEP"., 08/07/17) Ketorolac Tromethamine (Verified Adverse Reaction, Intermediate, "TEARS STOMACH UP", 08/07/17) Prochlorperazine (Verified Adverse Reaction, Unknown, ANXIETY/JITTERY/ HYPOTENSION, 08/07/17) Vital Signs Date Time Temp Pulse Resp B/P (MAP) Pulse Ox O2 Delivery O2 Flow Rate FiO2 08/07/17 19:08 37.0 102 20 126/90 97 Room Air Departure Information Referrals Holland Naik M.D. (PCP) Patient Instructions My [facility]
[2017-08-07] MEDS ORDERED: ONDANSETRON 4MG OD TAB ONE (20:07)
[2017-08-07] MEDS ORDERED: ACETAMINOPHEN IV 1,000 MG in EMPTY BAG 0 ML IV STA (20:16)
[2017-08-07 22:07] VITALS: BP 121/79; PULSE 90; O2SAT 97
== END 2017-08-07 22:08 | disposition home or self-care (01) ==
LOC: C.EDB 18:55
DX: R33.9 Retention of urine, unspecified (principal); F41.1 Generalized anxiety disorder; F32.9 Major depressive disorder, single episode, unspecified; G47.00 Insomnia, unspecified; F43.20 Adjustment disorder, unspecified; J45.909 Unspecified asthma, uncomplicated; K57.30 Diverticulosis of large intestine without perforation or abscess without bleeding; E78.5 Hyperlipidemia, unspecified; F43.10 Post-traumatic stress disorder, unspecified; K58.9 Irritable bowel syndrome, unspecified; K31.84 Gastroparesis; F17.200 Nicotine dependence, unspecified, uncomplicated; Z90.710 Acquired absence of both cervix and uterus; Z90.721 Acquired absence of ovaries, unilateral; Z90.49 Acquired absence of other specified parts of digestive tract; Z82.49 Family history of ischemic heart disease and other diseases of the circulatory system

== ENCOUNTER 2017-09-17 14:11 | Emergency (ER) | payer OTHER ==
[~2017-09-17] VITALS: Ht 165.1 cm; Wt 96.0 kg
[~2017-09-17 14:11] MED LIST changes: +HYDR-5688 PO; -LSX40 PO; +PROM12.57 PO; -PYRI100T4 PO; -SRQ100 PO
[2017-09-17 14:21] VITALS: TEMP 36.8; Ht 165.1 cm; Wt 96.0 kg
[2017-09-17 14:59] LABS: BASO % 0.9 %; BASO ABS # 0.07 K/uL (0-0.2); COMPLETE YES; EOS % 5.6 %; IG% 0.1 %; LYMPH % 37.9 %; LYMPH ABS # 3.07 K/uL (1.2-3.4); MEAN CELL VOLUME 90.7 fL (80-100); MEAN CORPUSCULAR HEMOGLOBIN 30.1 pg (25-34); MEAN CORPUSCULAR HGB CONC 33.2 g/dl (32-36); MEAN PLATELET VOLUME 9.4 fL (7.4-10.4); MONO % 6.7 %; NEUT % 48.8 %; PLATELET COUNT 274 K/uL (130-400); RED BLOOD COUNT 4.85 M/uL (4.2-5.4); WHITE BLOOD COUNT 8.09 K/uL (4.8-10.8)
[2017-09-17 15:16] LABS: ALT/SGPT 28 U/L (12-78); AST/SGOT 14 U/L (15-37); BLOOD UREA NITROGEN 12 mg/dl (7-18); BUN/CREATININE RATIO 11.6 (10-20); CALCIUM 9.2 mg/dl (8.5-10.1); CARBON DIOXIDE 27 mmol/L (21-32); CHLORIDE 99 mmol/L (98-107); CREATININE 0.99 mg/dl (0.60-1.20); GLUCOSE 97 mg/dl (70-99); POTASSIUM 3.9 mmol/L (3.5-5.1); SODIUM 135 mmol/L (136-145)
[2017-09-17 15:22] LABS: ALKALINE PHOSPHATASE 97 U/L (45-117)
[2017-09-17] MEDS ORDERED: GEMF600T3 PO (15:25)
[2017-09-17] MEDS ORDERED: ACET-1256 PO (15:26)
--- NOTE | 2017-09-17 15:33 | DIAGNOSTIC IMAGING REPORT ---
CHEST ONE VIEW PORTABLE HISTORY: Atypical chest pain. COMPARISON: Chest 07/28/2017. FINDINGS: The lungs are clear. Cardiac silhouette is normal in size. No pleural effusions. No pneumothorax. IMPRESSION: No acute process. Electronically signed by: Artur Dick M.D. 09/17/2017 3:32 PM Dictated Date/Time: 09/17/2017 3:30 PM
[2017-09-17] MEDS ORDERED: ONDANSETRON INJ 2 MG/ML 2 ML VIAL IV STA (16:11)
[2017-09-17] MEDS ORDERED: HYDROmorphone INJ 1 MG/ML SYR IV STA (16:11)
[2017-09-17] MEDS ORDERED: NORCO 5/325MG HOME PACK PO ONE (17:45)
[2017-09-17 17:55] VITALS: BP 133/89; PULSE 96; O2SAT 96
--- NOTE | 2017-09-17 19:17 | EMERGENCY ROOM VISIT NOTE ---
History Report prepared by Ashok: Eleni Waite Under the Supervision of: Dr. Leighton Rehman M.D. First contact with patient: 14:29 Chief Complaint: CHEST PAIN Stated Complaint: CHEST PAIN, PALPITATIONS, DISORIENTED History of Present Illness The patient is a 47 year old female who presents to the Emergency Room with complaints of constant chest pain starting yesterday. The patient states that she has had this happen in the past before. She states that it feels similar to the past episode. The patient states that it started out feeling like her heart was fluttering and then transformed into feeling like her heart would skip a beat and then start pounding. She states that the chest pain is centralized and radiates to the left. The patient currently rates her pain as an 8/10 in severity. She notes that the pain is worse when she takes a deep breath. The patient reports that she has taken Tylenol with no relief. She states that last night she lost consciousness in the bathroom which is unusual. The patient complains of a headache, ringing in her ears, pain in her neck, pain in her shoulder area, nausea, seeing "glitter" in her eyes, and feeling like it is hard to catch her breath. The patient notes that she has a history of sporadic hypertension and hyperlipidemia. She notes that her mother had a heart attack. She states that her brother and her sister have cardiac issues. She notes that she did have a stress test less than a year ago for similar symptoms. The patient denies taking any long trips recently. Pt denies fevers, chills, diaphoresis, vomiting, abdominal pain, back pain, melena, hematochezia, urinary symptoms, numbness, weakness, lymphadenopathy, rash, or other complaints. Source of History: patient Onset: yesterday Position: chest Symptom Intensity: 8/10 Quality: other (radiating) Timing: constant Modifying Factors (Worsening): breathing Associated Symptoms: + LOC, + headache, + neck pain, + SOB, + nausea Note: The patient complains of ringing in her ears, pain in her shoulder area, and seeing "glitter" in her eyes. Review of Systems See HPI for pertinent positives and negatives. A total of ten systems were reviewed and were otherwise negative. Past Medical & Surgical Medical Problems: (1) Adjustment disorder (2) Asthma (3) Depression (4) Diverticulosis Colon (W/O Ment Of Hemorrhage) (5) Drug overdose, intentional (6) DWAYNE (generalized anxiety disorder) (7) Gastroparesis (8) HLD (hyperlipidemia) (9) HTN (hypertension) (10) IBS (irritable bowel syndrome) (11) Kidney stone (12) Migraine (13) Postconcussion Syndrome (14) Posttraumatic Stress Disorder (15) Suicide attempt by drug ingestion (16) Tobacco abuse Surgical Problems: (1) H/O colonoscopy (2) H/O esophagogastroduodenoscopy (3) H/O tubal ligation (4) H/O unilateral oophorectomy (5) History of partial colectomy (6) Hx of appendectomy (7) Hx of tonsillectomy (8) S/P cholecystectomy (9) S/P MARLON (total abdominal hysterectomy) Family History FH: heart disease MOTHER ( from [place] at age 66) BROTHER (details unknown) Gallbladder disease Heart valve abnormality SISTER Hypertension Social History Smoking Status: Current Every Day Smoker Alcohol Use: none Marital Status: in relationship Housing Status: lives with significant other Occupation Status: employed Current/Historical Medications Scheduled Clonidine Hcl (Catapres), 0.2 MG PO HS Famotidine (Famotidine), 20 MG PO BID Gemfibrozil (Lopid), 600 MG PO BID Venlafaxine Hcl (Effexor Extended Rel), 150 MG PO DAILY Venlafaxine Hcl (Venlafaxine Hcl Er), 75 MG PO DAILY Scheduled PRN Acetaminophen (Tylenol), 1,000 MG PO UD PRN for Pain Albuterol Hfa (Ventolin Hfa), 2 PUFFS INH Q4H PRN for Wheezing Clonazepam (Klonopin), 1 MG PO BID PRN for Anxiety Epinephrine (Epipen 2-Cisco), 0.3 MG IM UD PRN for ALLERGIC REACTION Allergies Coded Allergies: Ibuprofen (Verified Allergy, Severe, SOB-HIVES, 09/17/17) Iodinated Diagnostic Agents (Verified Allergy, Intermediate, HIVES, ) Tramadol (Verified Allergy, Intermediate, HIVES, 09/17/17) Penicillins (Verified Allergy, Mild, ANAPHYLAXIS, 09/17/17) Moxifloxacin (Verified Allergy, Unknown, UNKNOWN, 09/17/17) Sulfa Antibiotics (Verified Allergy, Unknown, unkn, 09/17/17) as a child Haloperidol (Verified Adverse Reaction, Intermediate, "KEEPS ME AWAKE, CAN 'T SLEEP"., 09/17/17) Ketorolac Tromethamine (Verified Adverse Reaction, Intermediate, "TEARS STOMACH UP", 09/17/17) Prochlorperazine (Verified Adverse Reaction, Unknown, ANXIETY/JITTERY/ HYPOTENSION, 09/17/17) Physical Exam Vital Signs Date Time Temp Pulse Resp B/P (MAP) Pulse Ox O2 Delivery O2 Flow Rate FiO2 09/17/17 17:55 96 17 133/89 96 09/17/17 16:23 87 20 118/96 97 Room Air 09/17/17 15:20 92 09/17/17 14:57 Room Air 09/17/17 14:56 Room Air 09/17/17 14:55 102 20 126/88 99 Room Air 09/17/17 14:21 99 Room Air 09/17/17 14:21 36.8 95 18 160/96 98 Room Air Physical Exam GENERAL: Awake, alert, well-appearing, in no distress HENT: Normocephalic, atraumatic. Oropharynx unremarkable. EYES: Normal conjunctiva. Sclera non-icteric. NECK: Supple. No nuchal rigidity. FROM. No JVD. RESPIRATORY: Clear to auscultation. CARDIAC: Borderline tachycardic rate, normal rhythm. Extremities warm and well perfused. Pulses equal. ABDOMEN: Soft, non-distended. No tenderness to palpation. No rebound or guarding. No masses. RECTAL: Deferred. MUSCULOSKELETAL: Chest examination reveals no tenderness. The back is symmetrical on inspection without obvious abnormality. There is no CVA tenderness to palpation. No joint edema. LOWER EXTREMITIES: Calves are equal size bilaterally and non-tender. No edema. No discoloration. NEURO: Normal sensorium. No sensory or motor deficits noted. SKIN: No rash or jaundice noted. Medical Decision & Procedures ER Provider Diagnostic Interpretation: Radiology results as stated below per my review and radiologist interpretation: CHEST ONE VIEW PORTABLE HISTORY: Atypical chest pain. COMPARISON: Chest 07/28/2017. FINDINGS: The lungs are clear. Cardiac silhouette is normal in size. No pleural effusions. No pneumothorax. IMPRESSION: No acute process. Electronically signed by: Artur Dick M.D. 09/17/2017 3:32 PM Dictated Date/Time: 09/17/2017 3:30 PM Laboratory Results 09/17/17 14:50 Red Blood Count 4.85, Mean Corpuscular Volume 90.7, Mean Corpuscular Hemoglobin 30.1, Mean Corpuscular Hemoglobin Concent 33.2, Mean Platelet Volume 9.4, Neutrophils (%) (Auto) 48.8, Lymphocytes (%) (Auto) 37.9, Monocytes (%) (Auto) 6.7, Eosinophils (%) (Auto) 5.6, Basophils (%) (Auto) 0.9, Neutrophils # (Auto) 3.95, Lymphocytes # (Auto) 3.07, Monocytes # (Auto) 0.54, Eosinophils # (Auto) 0.45, Basophils # (Auto) 0.07 09/17/17 14:50 Test 09/17/17 14:50 09/17/17 17:06 White Blood Count 8.09 K/uL (4.8-10.8) Red Blood Count 4.85 M/uL (4.2-5.4) Hemoglobin 14.6 g/dL (12.0-16.0) Hematocrit 44.0 % (37-47) Mean Corpuscular Volume 90.7 fL (80-100) Mean Corpuscular Hemoglobin 30.1 pg (25-34) Mean Corpuscular Hemoglobin Concent 33.2 g/dl (32-36) Platelet Count 274 K/uL (130-400) Mean Platelet Volume 9.4 fL (7.4-10.4) Neutrophils (%) (Auto) 48.8 % Lymphocytes (%) (Auto) 37.9 % Monocytes (%) (Auto) 6.7 % Eosinophils (%) (Auto) 5.6 % Basophils (%) (Auto) 0.9 % Neutrophils # (Auto) 3.95 K/uL (1.4-6.5) Lymphocytes # (Auto) 3.07 K/uL (1.2-3.4) Monocytes # (Auto) 0.54 K/uL (0.11-0.59) Eosinophils # (Auto) 0.45 K/uL (0-0.5) Basophils # (Auto) 0.07 K/uL (0-0.2) RDW Standard Deviation 43.2 fL (36.4-46.3) RDW Coefficient of Variation 13.0 % (11.5-14.5) Immature Granulocyte % (Auto) 0.1 % Immature Granulocyte # (Auto) 0.01 K/uL (0.00-0.02) D-Dimer < 190 ug/L FEU (0-500) Anion Gap 9.0 mmol/L (3-11) Est Creatinine Clear Calc Drug Dose 82.2 ml/min Estimated GFR () 79.8 Estimated GFR (Non- 68.8 BUN/Creatinine Ratio 11.6 (10-20) Calcium Level 9.2 mg/dl (8.5-10.1) Total Bilirubin 0.2 mg/dl (0.2-1) Direct Bilirubin < 0.1 mg/dl (0-0.2) Aspartate Amino Transf (AST/SGOT) 14 U/L (15-37) Alanine Aminotransferase (ALT/SGPT) 28 U/L (12-78) Alkaline Phosphatase 97 U/L (45-117) Troponin I < 0.015 ng/ml (0-0.045) Total Protein 8.3 gm/dl (6.4-8.2) Albumin 3.8 gm/dl (3.4-5.0) Lipase 118 U/L (73-393) Bedside Troponin I < 0.030 ng/ml (0-0.045) Laboratory results reviewed by me Medications Administered Medications (Trade) Dose Ordered Sig/Lorna Route Start Time Stop Time Status Last Admin Dose Admin Hydromorphone HCl (Dilaudid Inj) 1 mg NOW STAT IV 09/17/17 16:11 09/17/17 16:13 DC 09/17/17 16:27 1 MG Ondansetron HCl (Zofran Inj) 4 mg NOW STAT IV 09/17/17 16:11 09/17/17 16:13 DC 09/17/17 16:27 4 MG ECG Indication: chest pain Rate (beats per minute): 101 Rhythm: sinus tachycardia Findings: nonspecific-ST abn, no acute ischemic change, no ectopy Comparison ECG Date: Repeat EKG Change: Normal sinus at 79. No acute ischemic change. No ectopy. No pericarditis. No significant change from previous. ED Course 1433: The patient was evaluated in room A4B. A complete history and physical exam was performed. 1609: I reevaluated the patient and she would like something for the pain. 1611: Ordered Zofran Inj 4 mg IV, Dilaudid Inj 1 mg IV. 1642: I reevaluated the patient and she is doing better. 1732: I reevaluated the patient. She is feeling better and will follow up with her PCP regarding her blood pressure and this episode. Discussed results and discharge instructions: She verbalized understanding and agreement. The patient is ready for discharge. 1745: Ordered [place] 5/325mg Home Pack 1 homepack PO. Medical Decision Triage Nursing notes reviewed. The patient's presentation and history were concerning for chest pain. Etiologies such as cardiac ischemia, aortic dissection, pulmonary embolism, pneumonia, pneumothorax, musculoskeletal, infections, gastrointestinal, as well as others were entertained. The patient was evaluated. Her ECG showed sinus tachycardia. He had no ischemic change. She notes her pain was present all night and that she fell asleep for about 4 hours with the pain. She woke up with the same pain. She did have a syncopal episode last night. She notes a prior history of similar pain and notes she was admitted to hospital and had a stress test performed. Records were reviewed. Blood work and imaging were obtained. Her CBC, chemistry panel, LFTs, lipase, troponin, and d-dimer were negative. The patient had a repeat ECG and troponin performed and these were unremarkable. There was no acute ischemic change noted. She received 1 dose of Dilaudid for her pain and felt significantly better with this. Her vital signs are stable. I discussed conservative management. The patient has had a stress test by her report within the last year after a cardiac rule out and it was negative. She has had constant pain and she has to troponin measurements that are essentially 0. The patient has nonischemic appearing ECG measurements as well. The patient did raise concerns about this being related to the stress of the holidays which is certainly possible. She is doing well at this time and feels comfortable with being discharged and following up closely this week with her primary physician. If she worsens in any way she will come back. I gave my usual and customary discussion regarding this issue. By the evaluation outlined above other emergent etiologies such as those listed in the differential, as well as others, were deemed relatively unlikely. The patient was educated about the findings as listed above. All questions were answered and the patient was pleased with the treatment. Return instructions were outlined and the patient was discharged in stable condition. The patient was referred to her PCP for follow-up for a recheck of the current condition. Medication Reconcilliation Current Medication List: was personally reviewed by me Blood Pressure Screening Patient's blood pressure: Elevated blood pressure Blood pressure disposition: Referred to PCP Impression Primary Impression: Substernal chest pain Scribe Attestation The scribe's documentation has been prepared under my direction and personally reviewed by me in its entirety. I confirm that the note above accurately reflects all work, treatment, procedures, and medical decision making performed by me. Departure Information Dispostion Home / Self-Care Referrals Holland Naik M.D. (PCP) Forms Call Back Authorization, HOME CARE DOCUMENTATION FORM, IMPORTANT VISIT INFORMATION Patient Instructions My [facility] Additional Instructions CHEST PAIN INSTRUCTIONS: DO NOT drive, drink alcohol, operate machinery, or perform dangerous activities today. You were given medications in the ER that can affect your ability to safely function or operate a vehicle. Hydrocodone/acetaminophen 5/325mg: Take 1-2 pills every 6 hours as needed for pain. Avoid additional Acetaminophen/Tylenol, alcohol, operating machinery or dangerous equipment, working on ladders or roofs, DRIVING, or situations where being under the influence may be dangerous. Acetaminophen(Tylenol) may be used for fever or pain. Use 1000mg every six hours as needed for mild to moderate pain. Avoid using more than 4000mg in a 24 hour period. Do not mix with the [place]. Rest and drink plenty of fluids as tolerated. Continue current medications. Avoid strenuous activities and anything that worsens your pain. Resume normal activities once your symptoms resolve. Return to the ER immediately for worsening or persistent chest pain, abdominal pain, vomiting, fevers, chest pains, difficulty breathing, worsening of your condition, or as needed. Follow up with your primary physician in 2-3 days for a recheck of your current condition and blood pressure.
== END 2017-09-17 17:56 | disposition home or self-care (01) ==
LOC: C.EDB 14:13 → C.EDA 17:56
DX: R07.2 Precordial pain (principal); R00.0 Tachycardia, unspecified; R55 Syncope and collapse; R51 Headache; M54.2 Cervicalgia; R06.02 Shortness of breath; R11.0 Nausea; F43.20 Adjustment disorder, unspecified; J45.909 Unspecified asthma, uncomplicated; F32.9 Major depressive disorder, single episode, unspecified; F41.1 Generalized anxiety disorder; K57.30 Diverticulosis of large intestine without perforation or abscess without bleeding; K31.84 Gastroparesis; E78.5 Hyperlipidemia, unspecified; I10 Essential (primary) hypertension; F17.200 Nicotine dependence, unspecified, uncomplicated; K58.9 Irritable bowel syndrome, unspecified; F43.10 Post-traumatic stress disorder, unspecified; Z91.5 Personal history of self-harm; Z98.51 Tubal ligation status; Z90.721 Acquired absence of ovaries, unilateral; Z90.49 Acquired absence of other specified parts of digestive tract; Z90.710 Acquired absence of both cervix and uterus; Z82.49 Family history of ischemic heart disease and other diseases of the circulatory system

== ENCOUNTER 2017-11-03 22:58 | Emergency (ER) | payer OTHER ==
[~2017-11-03] VITALS: Ht 165.1 cm; Wt 101.8 kg
[~2017-11-03 22:58] MED LIST changes: +ACET-1256 PO; -FEXO1TAB49 PO; +GEMF600T3 PO; -HYDR-5688 PO; -PROM12.57 PO
[2017-11-03 23:05] VITALS: TEMP 36.6; Ht 165.1 cm; Wt 101.8 kg
[2017-11-03 23:40] LABS: HEMATOCRIT 43.2 % (37-47); HEMOGLOBIN 14.3 g/dL (12.0-16.0); MEAN CELL VOLUME 90.6 fL (80-100); MEAN CORPUSCULAR HGB CONC 33.1 g/dl (32-36); MEAN PLATELET VOLUME 9.5 fL (7.4-10.4); PLATELET COUNT 288 K/uL (130-400); RED CELL DISTRIBUTION WIDTH CV 13.2 % (11.5-14.5); RED CELL DISTRIBUTION WIDTH SD 43.8 fL (36.4-46.3); WHITE BLOOD COUNT 9.95 K/uL (4.8-10.8)
[2017-11-03 23:59] LABS: ALBUMIN 3.8 gm/dl (3.4-5.0); ALT/SGPT 29 U/L (12-78); AST/SGOT 14 U/L (15-37); BLOOD UREA NITROGEN 7 mg/dl (7-18); CARBON DIOXIDE 28 mmol/L (21-32); CREATININE 0.97 mg/dl (0.60-1.20); GLUCOSE 84 mg/dl (70-99); POTASSIUM 3.7 mmol/L (3.5-5.1); SODIUM 137 mmol/L (136-145)
[2017-11-04 00:10] LABS: ALKALINE PHOSPHATASE 94 U/L (45-117)
[2017-11-04 00:18] LABS: BASO % 0.6 %; BASO ABS # 0.06 K/uL (0-0.2); EOS % 5.6 %; EOS ABS # 0.56 K/uL (0-0.5); IG# 0.02 K/uL (0.00-0.02); LYMPH ABS # 3.78 K/uL (1.2-3.4); MONO % 6.7 %; MONO ABS # 0.67 K/uL (0.11-0.59); NEUT % 48.9 %; NEUT ABS # 4.86 K/uL (1.4-6.5)
[2017-11-04] MEDS ORDERED: ALUMINUM/MAGNESIUM SUSP 30 ML UDC PO STA (00:20)
[2017-11-04] MEDS ORDERED: FAMOTIDINE 20 MG TAB PO ONE (00:30)
--- NOTE | 2017-11-04 01:35 | EMERGENCY ROOM VISIT NOTE ---
History Report prepared by Ashok: Uzma Hinojosa Under the Supervision of: Dr. Daniela Xavier D.O. First contact with patient: 23:15 Chief Complaint: MENTAL HEALTH EVALUATION Stated Complaint: NO SLEEP,SEVERE DEPRESSION,ANXIETY,VOLUNTARY EVAL History of Present Illness The patient is a 47 year old female who presents to the Emergency Room for a mental health evaluation. The patient's depression and anxiety have been slowly worsening over the past 3 months. She was admitted as an inpatient 3 months ago with auditory hallucinations. She lost her job at that time. She reports that she has been sleeping 2-3 hours a night for the past 2 weeks. She has had nightmares about her family being murdered. She has been trying to continue going to work, but she feels like she has hit a wall. She states that she is having paranoid thoughts and irrational thinking. She has started a new job and feels like she might be fired when she is criticized. She sometimes feels confused and disoriented. She got lost trying to drive to the ED today. She states that last time she felt this severely depressed was 4 years ago. She has a psychiatrist that she follows with. She denies any medication changes. She denies any recent illness or injury. She has had thoughts about ways that she might hurt herself. She sometimes becomes angry and frustrated and feels violent towards herself. She denies any thoughts of hurting others. She denies any auditory or visual hallucinations. Source of History: patient Onset: 3 months ago Position: other (global) Quality: other (anxiety, depression) Timing: worsening Note: Pt reports thoughts of hurting herself, confusion, paranoid thoughts, trouble sleeping, irrational thinking. Patient denies thoughts of hurting others, auditory hallucinations, visual hallucinations. Review of Systems See HPI for pertinent positives & negatives. A total of 10 systems reviewed and were otherwise negative. Past Medical & Surgical Medical Problems: (1) Adjustment disorder (2) Asthma (3) Depression (4) Diverticulosis Colon (W/O Ment Of Hemorrhage) (5) Drug overdose, intentional (6) DWAYNE (generalized anxiety disorder) (7) Gastroparesis (8) HLD (hyperlipidemia) (9) HTN (hypertension) (10) IBS (irritable bowel syndrome) (11) Kidney stone (12) Migraine (13) Postconcussion Syndrome (14) Posttraumatic Stress Disorder (15) Suicide attempt by drug ingestion (16) Tobacco abuse Surgical Problems: (1) H/O colonoscopy (2) H/O esophagogastroduodenoscopy (3) H/O tubal ligation (4) H/O unilateral oophorectomy (5) History of partial colectomy (6) Hx of appendectomy (7) Hx of tonsillectomy (8) S/P cholecystectomy (9) S/P MARLON (total abdominal hysterectomy) Family History FH: heart disease MOTHER ( from [place] at age 66) BROTHER (details unknown) Gallbladder disease Heart valve abnormality SISTER Hypertension Social History Smoking Status: Current Every Day Smoker Alcohol Use: none Marital Status: in relationship Housing Status: lives with significant other Occupation Status: employed Current/Historical Medications Scheduled Clonidine Hcl (Catapres), 0.2 MG PO HS Famotidine (Famotidine), 20 MG PO BID Venlafaxine Hcl (Effexor Extended Rel), 150 MG PO DAILY Venlafaxine Hcl (Venlafaxine Hcl Er), 75 MG PO DAILY Scheduled PRN Albuterol Hfa (Ventolin Hfa), 2 PUFFS INH Q4H PRN for Wheezing Clonazepam (Klonopin), 1 MG PO BID PRN for Anxiety Epinephrine (Epipen 2-Cisco), 0.3 MG IM UD PRN for ALLERGIC REACTION Allergies Coded Allergies: Ibuprofen (Verified Allergy, Severe, SOB-HIVES, 11/04/17) Iodinated Diagnostic Agents (Verified Allergy, Intermediate, HIVES, ) Tramadol (Verified Allergy, Intermediate, HIVES, 11/04/17) Penicillins (Verified Allergy, Mild, ANAPHYLAXIS, 11/04/17) Moxifloxacin (Verified Allergy, Unknown, UNKNOWN, 11/04/17) Sulfa Antibiotics (Verified Allergy, Unknown, unkn, 11/04/17) as a child Haloperidol (Verified Adverse Reaction, Intermediate, "KEEPS ME AWAKE, CAN 'T SLEEP"., 11/04/17) Ketorolac Tromethamine (Verified Adverse Reaction, Intermediate, "TEARS STOMACH UP", 11/04/17) Prochlorperazine (Verified Adverse Reaction, Unknown, ANXIETY/JITTERY/ HYPOTENSION, 11/04/17) Physical Exam Vital Signs Date Time Temp Pulse Resp B/P (MAP) Pulse Ox O2 Delivery O2 Flow Rate FiO2 11/04/17 05:08 96 18 108/99 96 11/04/17 00:46 97 20 147/98 95 Room Air 11/03/17 23:05 36.6 109 18 148/91 97 Room Air Physical Exam GENERAL: alert, well appearing, well nourished, no distress, non-toxic EYE EXAM: normal conjunctiva, PERRL and EOM's grossly intact OROPHARYNX: no exudate, no erythema, lips, buccal mucosa, and tongue normal and mucous membranes are moist NECK: supple, no nuchal rigidity, no adenopathy, non-tender LUNGS: Clear to auscultation. Normal chest wall mechanics HEART: no murmurs, S1 normal and S2 normal ABDOMEN: abdomen soft, non-tender, normo-active bowel sounds, no masses, no rebound or guarding. BACK: Back is symmetrical on inspection and there is no deformity, no midline tenderness, no CVA tenderness. SKIN: no rashes and no bruising UPPER EXTREMITIES: upper extremities are grossly normal. LOWER EXTREMITIES: No pitting edema. NEURO EXAM: Normal sensorium, cranial nerves II-XII grossly intact, normal speech, no gross weakness of arms, no gross weakness of legs. PSYCH: Positive depression, anxiety, suicidal ideation. No homicidal ideation or hallucination. Medical Decision & Procedures Laboratory Results 11/03/17 23:27 Red Blood Count 4.77, Mean Corpuscular Volume 90.6, Mean Corpuscular Hemoglobin 30.0, Mean Corpuscular Hemoglobin Concent 33.1, Mean Platelet Volume 9.5, Neutrophils (%) (Auto) 48.9, Lymphocytes (%) (Auto) 38.0, Monocytes (%) (Auto) 6.7, Eosinophils (%) (Auto) 5.6, Basophils (%) (Auto) 0.6, Neutrophils # (Auto) 4.86, Lymphocytes # (Auto) 3.78, Monocytes # (Auto) 0.67, Eosinophils # (Auto) 0.56, Basophils # (Auto) 0.06 11/03/17 23:27 Test 11/03/17 23:10 11/03/17 23:27 Urine Color YELLOW Urine Appearance CLOUDY (CLEAR) Urine pH 5.5 (4.5-7.5) Urine Specific [place] 1.009 (1.000-1.030) Urine Protein NEG (NEG) Urine Glucose (UA) NEG (NEG) Urine Ketones NEG (NEG) Urine Occult Blood NEG (NEG) Urine Nitrite NEG (NEG) Urine Bilirubin NEG (NEG) Urine Urobilinogen NEG (NEG) Urine Leukocyte Esterase TRACE (NEG) Urine WBC (Auto) 10-30 /hpf (0-5) Urine RBC (Auto) 5-10 /hpf (0-4) Urine Hyaline Casts (Auto) 1-5 /lpf (0-5) Urine Epithelial Cells (Auto) >30 /lpf (0-5) Urine Bacteria (Auto) 1+ (NEG) Urine Opiates Screen NEG (NEG) Urine Methadone, Qualitative NEG (NEG) Urine Barbiturates NEG (NEG) Urine Phencyclidine (PCP) Level NEG (NEG) Ur Amphetamine/Methamphetamine NEG (NEG) MDMA (Ecstasy) Screen NEG (NEG) Urine Benzodiazepines Screen NEG (NEG) Urine Cocaine Metabolite NEG (NEG) Urine Marijuana (THC) NEG (NEG) White Blood Count 9.95 K/uL (4.8-10.8) Red Blood Count 4.77 M/uL (4.2-5.4) Hemoglobin 14.3 g/dL (12.0-16.0) Hematocrit 43.2 % (37-47) Mean Corpuscular Volume 90.6 fL (80-100) Mean Corpuscular Hemoglobin 30.0 pg (25-34) Mean Corpuscular Hemoglobin Concent 33.1 g/dl (32-36) Platelet Count 288 K/uL (130-400) Mean Platelet Volume 9.5 fL (7.4-10.4) Neutrophils (%) (Auto) 48.9 % Lymphocytes (%) (Auto) 38.0 % Monocytes (%) (Auto) 6.7 % Eosinophils (%) (Auto) 5.6 % Basophils (%) (Auto) 0.6 % Neutrophils # (Auto) 4.86 K/uL (1.4-6.5) Lymphocytes # (Auto) 3.78 K/uL (1.2-3.4) Monocytes # (Auto) 0.67 K/uL (0.11-0.59) Eosinophils # (Auto) 0.56 K/uL (0-0.5) Basophils # (Auto) 0.06 K/uL (0-0.2) RDW Standard Deviation 43.8 fL (36.4-46.3) RDW Coefficient of Variation 13.2 % (11.5-14.5) Immature Granulocyte % (Auto) 0.2 % Immature Granulocyte # (Auto) 0.02 K/uL (0.00-0.02) Anion Gap 6.0 mmol/L (3-11) Est Creatinine Clear Calc Drug Dose 86.6 ml/min Estimated GFR () 81.8 Estimated GFR (Non- 70.5 BUN/Creatinine Ratio 7.7 (10-20) Calcium Level 9.0 mg/dl (8.5-10.1) Total Bilirubin 0.2 mg/dl (0.2-1) Direct Bilirubin < 0.1 mg/dl (0-0.2) Aspartate Amino Transf (AST/SGOT) 14 U/L (15-37) Alanine Aminotransferase (ALT/SGPT) 29 U/L (12-78) Alkaline Phosphatase 94 U/L (45-117) Total Protein 8.0 gm/dl (6.4-8.2) Albumin 3.8 gm/dl (3.4-5.0) Thyroid Stimulating Hormone (TSH) 2.160 uIu/ml (0.300-4.500) Human Chorionic Gonadotropin, Qual NEG (NEG) Ethyl Alcohol mg/dL < 3.0 mg/dl (0-3) Laboratory results per my review. Medications Administered Medications (Trade) Dose Ordered Sig/Lorna Route Start Time Stop Time Status Last Admin Dose Admin Famotidine (Pepcid Tab) 20 mg NOW ONCE PO 11/04/17 00:30 11/04/17 00:31 DC 11/04/17 00:44 20 MG Al Hydroxide/Mg Hydroxide (Maalox Susp) 15 ml NOW STAT PO 11/04/17 00:20 11/04/17 00:22 DC 11/04/17 00:44 15 ML Acetaminophen (Tylenol Tab) 650 mg NOW STAT PO 11/04/17 01:59 11/04/17 02:00 DC 11/04/17 02:09 650 MG ED Course 2322: The patient was evaluated in room A8. A complete history and physical exam was performed. 0020: Maalox Susp 15 ml PO. 0030: Famotidine 20 mg PO. 0135: Pt seen by psych field case manager, 201 signed. Pt being placed. 0159: Acetaminophen 650 mg PO. 0500: The patient has been accepted and transferred to [place]. Medical Decision Differential diagnosis: Etiologies such as mood disorder, infection, hypoglycemia, electrolyte abnormalities, cardiac sources, intracerebral event, toxicologic, neurologic, as well as others were entertained. Medication Reconcilliation Current Medication List: was personally reviewed by me Blood Pressure Screening Patient's blood pressure: Elevated blood pressure Blood pressure disposition: Elevated BP felt to be situational Impression Primary Impression: Depression Additional Impressions: Suicidal ideation Anxiety Scribe Attestation The scribe's documentation has been prepared under my direction and personally reviewed by me in its entirety. I confirm that the note above accurately reflects all work, treatment, procedures, and medical decision making performed by me. Departure Information Dispostion Mental Health Acute Care Referrals No Doctor, Assigned (PCP) Patient Instructions My [facility] Problem Qualifiers Primary Impression: Depression Depression Type: major depressive disorder Major depression recurrence: recurrent Active/Remission status: currently active Major depression episode severity: moderate Qualified Codes: F33.1 - Major depressive disorder, recurrent, moderate
[2017-11-04] MEDS ORDERED: ACETAMINOPHEN 325 MG TAB PO STA (01:59)
[2017-11-04 05:08] VITALS: BP 108/99; PULSE 96; O2SAT 96
== END 2017-11-04 05:11 ==
LOC: C.EDB 23:00 → C.EDA 11-04 05:11
DX: F33.1 Major depressive disorder, recurrent, moderate (principal); F41.9 Anxiety disorder, unspecified; R45.851 Suicidal ideations; J45.909 Unspecified asthma, uncomplicated; K57.30 Diverticulosis of large intestine without perforation or abscess without bleeding; E78.5 Hyperlipidemia, unspecified; I10 Essential (primary) hypertension; K58.9 Irritable bowel syndrome, unspecified; G43.909 Migraine, unspecified, not intractable, without status migrainosus; F43.10 Post-traumatic stress disorder, unspecified; Z82.49 Family history of ischemic heart disease and other diseases of the circulatory system; Z83.79 Family history of other diseases of the digestive system; F17.210 Nicotine dependence, cigarettes, uncomplicated; Z79.899 Other long term (current) drug therapy

== ENCOUNTER 2017-11-13 20:08 | Emergency (ER) | payer OTHER ==
[~2017-11-13] VITALS: Ht 165.1 cm; Wt 102.0 kg
[~2017-11-13 20:08] MED LIST changes: -ACET-1256 PO; -CTP1CL PO; -EPP3/2 IM; -GEMF600T3 PO; -VNTHFA/IN INH
[2017-11-13] MEDS ORDERED: VNTHFA/IN INH (20:09)
[2017-11-13] MEDS ORDERED: EPP3/2 IM (20:10)
[2017-11-13 20:21] VITALS: TEMP 36.4; Ht 165.1 cm; Wt 102.0 kg
[2017-11-13] MEDS ORDERED: SODIUM CHLORIDE 0.9% 500ML 500 ML IV STA (21:31)
[2017-11-13] MEDS ORDERED: ONDANSETRON INJ 2 MG/ML 2 ML VIAL IV STA (21:31)
[2017-11-13] MEDS ORDERED: MoRPHine SULFATE 4 MG/ML 1 ML CARP\\VIAL IV STA (21:31)
[2017-11-13 22:11] LABS: BASO % 0.4 %; BASO ABS # 0.04 K/uL (0-0.2); EOS % 5.6 %; EOS ABS # 0.61 K/uL (0-0.5); HEMATOCRIT 40.6 % (37-47); HEMOGLOBIN 13.5 g/dL (12.0-16.0); IG# 0.01 K/uL (0.00-0.02); LYMPH ABS # 4.02 K/uL (1.2-3.4); MEAN CELL VOLUME 89.6 fL (80-100); MEAN CORPUSCULAR HEMOGLOBIN 29.8 pg (25-34); MEAN CORPUSCULAR HGB CONC 33.3 g/dl (32-36); MEAN PLATELET VOLUME 9.5 fL (7.4-10.4); MONO % 6.4 %; MONO ABS # 0.69 K/uL (0.11-0.59); NEUT % 50.5 %; NEUT ABS # 5.49 K/uL (1.4-6.5); PLATELET COUNT 260 K/uL (130-400); RED CELL DISTRIBUTION WIDTH CV 13.3 % (11.5-14.5); RED CELL DISTRIBUTION WIDTH SD 43.5 fL (36.4-46.3); WHITE BLOOD COUNT 10.86 K/uL (4.8-10.8)
[2017-11-13 22:26] LABS: ALBUMIN 3.7 gm/dl (3.4-5.0); ALT/SGPT 30 U/L (12-78); BLOOD UREA NITROGEN 8 mg/dl (7-18); CALCIUM 9.2 mg/dl (8.5-10.1); CARBON DIOXIDE 26 mmol/L (21-32); CREATININE 0.82 mg/dl (0.60-1.20); GLUCOSE 98 mg/dl (70-99); LIPASE 150 U/L (73-393); POTASSIUM 3.9 mmol/L (3.5-5.1); SODIUM 137 mmol/L (136-145)
[2017-11-13 22:29] LABS: ALKALINE PHOSPHATASE 89 U/L (45-117); AST/SGOT 18 U/L (15-37); TOTAL PROTEIN 7.8 gm/dl (6.4-8.2)
[2017-11-13] MEDS ORDERED: TPM25 PO (22:30)
[2017-11-13] MEDS ORDERED: SPHSL5 SL (22:30)
[2017-11-13] MEDS ORDERED: EFFSR75 PO (22:30)
--- NOTE | 2017-11-13 22:43 | DIAGNOSTIC IMAGING REPORT ---
(RENAL)RETROPERITON COMP HISTORY: Pain left flank pain COMPARISON: None. FINDINGS: Right kidney: Maximum dimension 12.5 cm. No evidence for hydronephrosis. Normal corticomedullary differentiation and cortical thickness. Left kidney: Maximum dimension 11.5 cm. No evidence for hydronephrosis Normal corticomedullary differentiation and cortical thickness. Bladder: No bladder wall thickening. The bilateral ureteral jets were identified. IMPRESSION: Normal renal ultrasound. The above report was generated using voice recognition software. It may contain grammatical, syntax or spelling errors. Electronically signed by: Amrik Schmidt M.D. 11/13/2017 10:42 PM Dictated Date/Time: 11/13/2017 10:41 PM
[2017-11-13] MEDS ORDERED: CTP1CL PO (22:45)
[2017-11-13] MEDS ORDERED: FENTANYL CITRATE INJ 50 MCG/1 ML 2 ML VIAL IV STA (23:13)
--- NOTE | 2017-11-13 23:22 | EMERGENCY ROOM VISIT NOTE ---
ED Visit Note First contact with patient: 21:27 I have personally seen and evaluated the patient with the PA. I agree with the diagnosis and management decisions and have been personally involved in the case. Please see Manju Uribe PA-C's notes for further details of the history, physical and visit.
--- NOTE | 2017-11-13 23:26 | EMERGENCY ROOM VISIT NOTE ---
History First contact with patient: 21:27 Chief Complaint: URINARY SYMPTOMS Stated Complaint: UNABLE TO URINATE PAST 8 HRS, EXTREME PAIN Nursing Triage Summary: Pt complains of left flank pain and inability to urinate since noon. Hx kidney stones. History of Present Illness The patient is a 47 year old female who presents to the Emergency Room with complaints of urinary retention and left flank pain for the past 8 hours. Patient has a history kidney stones. This feels slightly different. She follows with urology in [place]. She cannot recall his name. She describes pain as aching, ranging in severity 8 out of 10. Nothing makes it better or worse. It does not radiate. Patient denies chest pain, dyspnea, fever, chills , vomiting, diarrhea, injury to the area. No history of urinary retention in the past. She had a normal bowel movement today. Review of Systems See HPI for pertinent positives & negatives. A total of 10 systems reviewed and were otherwise negative. Past Medical/Surgical History Medical Problems: (1) Adjustment disorder (2) Asthma (3) Depression (4) Diverticulosis Colon (W/O Ment Of Hemorrhage) (5) Drug overdose, intentional (6) DWAYNE (generalized anxiety disorder) (7) Gastroparesis (8) HLD (hyperlipidemia) (9) HTN (hypertension) (10) IBS (irritable bowel syndrome) (11) Kidney stone (12) Migraine (13) Postconcussion Syndrome (14) Posttraumatic Stress Disorder (15) Suicide attempt by drug ingestion (16) Tobacco abuse Surgical Problems: (1) H/O colonoscopy (2) H/O esophagogastroduodenoscopy (3) H/O tubal ligation (4) H/O unilateral oophorectomy (5) History of partial colectomy (6) Hx of appendectomy (7) Hx of tonsillectomy (8) S/P cholecystectomy (9) S/P MARLON (total abdominal hysterectomy) Family History FH: heart disease MOTHER ( from [place] at age 66) BROTHER (details unknown) Gallbladder disease Heart valve abnormality SISTER Hypertension Social History Smoking Status: Current Every Day Smoker Alcohol Use: none Drug Use: none Marital Status: in relationship Housing Status: lives with significant other Occupation Status: employed Current/Historical Medications Scheduled Asenapine Maleate (Saphris), 5 MG SL DAILY Clonidine Hcl (Catapres), 0.1 MG PO HS Famotidine (Famotidine), 20 MG PO BID Topiramate (Topiramate), 12.5 MG PO HS Venlafaxine Hcl (Effexor Extended Rel), 150 MG PO DAILY Venlafaxine Hcl (Effexor Extended Rel), 75 MG PO DAILY Scheduled PRN Albuterol Hfa (Ventolin Hfa), 2 PUFFS INH Q4H PRN for Wheezing Epinephrine (Epipen 2-Cisco), 0.3 MG IM UD PRN for ALLERGIC REACTION Physical Exam Vital Signs Date Time Temp Pulse Resp B/P (MAP) Pulse Ox O2 Delivery O2 Flow Rate FiO2 11/13/17 22:42 90 18 143/99 98 Room Air 11/13/17 22:07 84 18 138/97 98 Room Air 11/13/17 20:21 36.4 107 20 138/98 98 Room Air Physical Exam VITALS: Vitals are noted on the nurse's note and reviewed by myself. Vital signs stable. GENERAL: White female, in no acute distress, nondiaphoretic, well-developed well -nourished. SKIN: The skin was without rashes, erythema, edema, or bruising. There is no tenting of the skin. Capillary reflex less than 2 seconds. HEAD: Normocephalic atraumatic. EARS: External auditory canals clear, tympanic membranes pearly alvarez without erythema or effusion bilaterally. EYES: Pupils equal round and reactive to light and accommodation. Conjunctivae without injection, sclerae without icterus. Extraocular movements intact. NOSE: Patent, turbinates without inflammation or discharge. MOUTH: Mucous membranes moist. Pharynx without erythema or exudate. Uvula midline. Airway patent. Tongue does not deviate. NECK: Supple without nuchal rigidity. No lymphadenopathy. No thyromegaly. Cervical spine is nontender. No JVD. HEART: Regular rate and rhythm without murmurs gallops or rubs. LUNGS: Clear to auscultation bilaterally without wheezes, rales or rhonchi. No dullness to percussion. No retractions or accessory muscle use. ABDOMEN: Positive bowel sounds x 4. Normal tympanic percussion. Soft, protuberant, obese, minimal left CVA tenderness, nontender, without masses or organomegaly. Hendrix sign negative. No guarding or rebound tenderness. MUSCULOSKELETAL: No muscle atrophy, erythema, or edema noted. NEURO: Patient was alert and oriented to person place and time. Normal sensation to light and sharp touch. No focal neurological deficits. Medical Decision & Procedures Laboratory Results 11/13/17 21:57 Red Blood Count 4.53, Mean Corpuscular Volume 89.6, Mean Corpuscular Hemoglobin 29.8, Mean Corpuscular Hemoglobin Concent 33.3, Mean Platelet Volume 9.5, Neutrophils (%) (Auto) 50.5, Lymphocytes (%) (Auto) 37.0, Monocytes (%) (Auto) 6.4, Eosinophils (%) (Auto) 5.6, Basophils (%) (Auto) 0.4, Neutrophils # (Auto) 5.49, Lymphocytes # (Auto) 4.02, Monocytes # (Auto) 0.69, Eosinophils # (Auto) 0.61, Basophils # (Auto) 0.04 11/13/17 21:57 Test 11/13/17 21:57 White Blood Count 10.86 K/uL (4.8-10.8) Red Blood Count 4.53 M/uL (4.2-5.4) Hemoglobin 13.5 g/dL (12.0-16.0) Hematocrit 40.6 % (37-47) Mean Corpuscular Volume 89.6 fL (80-100) Mean Corpuscular Hemoglobin 29.8 pg (25-34) Mean Corpuscular Hemoglobin Concent 33.3 g/dl (32-36) Platelet Count 260 K/uL (130-400) Mean Platelet Volume 9.5 fL (7.4-10.4) Neutrophils (%) (Auto) 50.5 % Lymphocytes (%) (Auto) 37.0 % Monocytes (%) (Auto) 6.4 % Eosinophils (%) (Auto) 5.6 % Basophils (%) (Auto) 0.4 % Neutrophils # (Auto) 5.49 K/uL (1.4-6.5) Lymphocytes # (Auto) 4.02 K/uL (1.2-3.4) Monocytes # (Auto) 0.69 K/uL (0.11-0.59) Eosinophils # (Auto) 0.61 K/uL (0-0.5) Basophils # (Auto) 0.04 K/uL (0-0.2) RDW Standard Deviation 43.5 fL (36.4-46.3) RDW Coefficient of Variation 13.3 % (11.5-14.5) Immature Granulocyte % (Auto) 0.1 % Immature Granulocyte # (Auto) 0.01 K/uL (0.00-0.02) Urine Color YELLOW Urine Appearance CLEAR (CLEAR) Urine pH 6.0 (4.5-7.5) Urine Specific Hopkins 1.012 (1.000-1.030) Urine Protein NEG (NEG) Urine Glucose (UA) NEG (NEG) Urine Ketones NEG (NEG) Urine Occult Blood NEG (NEG) Urine Nitrite NEG (NEG) Urine Bilirubin NEG (NEG) Urine Urobilinogen NEG (NEG) Urine Leukocyte Esterase NEG (NEG) Anion Gap 6.0 mmol/L (3-11) Est Creatinine Clear Calc Drug Dose 102.6 ml/min Estimated GFR () 100.2 Estimated GFR (Non- 86.4 BUN/Creatinine Ratio 10.2 (10-20) Calcium Level 9.2 mg/dl (8.5-10.1) Total Bilirubin 0.2 mg/dl (0.2-1) Direct Bilirubin < 0.1 mg/dl (0-0.2) Aspartate Amino Transf (AST/SGOT) 18 U/L (15-37) Alanine Aminotransferase (ALT/SGPT) 30 U/L (12-78) Alkaline Phosphatase 89 U/L (45-117) Total Protein 7.8 gm/dl (6.4-8.2) Albumin 3.7 gm/dl (3.4-5.0) Lipase 150 U/L (73-393) Human Chorionic Gonadotropin, Qual NEG (NEG) Medications Administered Medications (Trade) Dose Ordered Sig/Lorna Route Start Time Stop Time Status Last Admin Dose Admin Morphine Sulfate (MoRPHine SULFATE INJ) 4 mg NOW STAT IV 11/13/17 21:31 11/13/17 21:32 DC 11/13/17 22:06 4 MG Ondansetron HCl (Zofran Inj) 4 mg NOW STAT IV 11/13/17 21:31 11/13/17 21:32 DC 11/13/17 22:06 4 MG Sodium Chloride 500 ml @ 999 mls/hr Q31M STAT IV 11/13/17 21:31 11/13/17 22:01 DC 11/13/17 22:06 999 MLS/HR ED Course Prior records/ancillary studies reviewed. Triage Nursing notes reviewed. The patient's history was concerning for left flank pain. Differential diagnosis: Etiologies such as urinary retention, renal colic, appendicitis, diverticulitis , mesenteric ischemia, aortic pathology, infections, inflammatory bowel disease , PUD, biliary pathology, UTI, as well as others were entertained. Physical examination findings: As above. ER treatment provided: Morphine, IV fluids, Rosen catheter Bladder scan showed greater than 500 mL's of urine and Rosen catheter was placed by nursing and over a liter of fluid came out On reassessment the patient felt better. Diagnostic interpretation by me: The labs revealed stable H&H. Urinalysis revealed There was no sign of UTI. Imaging studies: (RENAL)RETROPERITON COMP HISTORY: Pain left flank pain COMPARISON: None. FINDINGS: Right kidney: Maximum dimension 12.5 cm. No evidence for hydronephrosis. Normal corticomedullary differentiation and cortical thickness. Left kidney: Maximum dimension 11.5 cm. No evidence for hydronephrosis Normal corticomedullary differentiation and cortical thickness. Bladder: No bladder wall thickening. The bilateral ureteral jets were identified. IMPRESSION: Normal renal ultrasound. The above report was generated using voice recognition software. It may contain grammatical, syntax or spelling errors. It appears that the patient has urinary retention. Rosen catheter was placed and this was converted to a leg bag. Patient sees urology in [place]. She is advised to follow-up in a few days for definitive care for her urinary issues. Patient had no signs of UTI. She had unremarkable ultrasound. She had no hematuria on urinalysis. She is advised to return to the ER immediately for severe pain, fevers, problems with the catheter, worsening signs or symptoms or as needed. By the evaluation outlined above emergent etiologies such as appendicitis, diverticulitis, mesenteric ischemia, aortic pathology, infections, inflammatory bowel disease, PUD, biliary pathology, UTI, as well as others were deemed relatively unlikely. The pt informed about the findings as listed above. All questions were answered and pleased with the treatment. Return instructions were outlined and the patient was discharged in stable condition. Referral: The patient was referred back to their urologist for follow-up in 2 to 3 days for a recheck of the current condition. Case reviewed with my attending Medical Decision As above [place] Drug Monitoring Program Search Results: patient reviewed within database, see additional documentation (multiple prescriptions) Medication Reconcilliation Current Medication List: was personally reviewed by me Blood Pressure Screening Patient's blood pressure: Normal blood pressure Impression Primary Impression: Urinary retention Departure Information Dispostion Home / Self-Care Condition GOOD Forms HOME CARE DOCUMENTATION FORM, IMPORTANT VISIT INFORMATION Patient Instructions Leg Bag Care Ct, [facility] Additional Instructions DO NOT drive, drink alcohol, operate machinery, or perform dangerous activities today. You were given medications in the ER that can affect your ability to safely function or operate a vehicle. Frequently empty out your Rosen catheter bag. Acetaminophen(Tylenol) may be used for fever or pain. Use 1000mg every six hours as needed. Avoid using more than 4000mg in a 24 hour period. Rest and drink plenty of fluids as tolerated. Continue current medications. Avoid strenuous activities and anything that worsens your pain. Resume normal activities once your symptoms resolve. Return to the ER immediately for problems with your Rosen catheter, abdominal pain, vomiting, fevers, chest pains, difficulty breathing, worsening of your condition, or as needed. Follow up with your urologist in 2-3 days for a recheck of your current condition.
[2017-11-13 23:45] VITALS: BP 135/87; PULSE 90; O2SAT 96
== END 2017-11-13 23:47 | disposition home or self-care (01) ==
LOC: C.EDB 20:09
DX: R33.9 Retention of urine, unspecified (principal); J45.909 Unspecified asthma, uncomplicated; I10 Essential (primary) hypertension; K57.80 Diverticulitis of intestine, part unspecified, with perforation and abscess without bleeding; K31.84 Gastroparesis; Z87.442 Personal history of urinary calculi; F17.200 Nicotine dependence, unspecified, uncomplicated; Z82.49 Family history of ischemic heart disease and other diseases of the circulatory system; Z83.79 Family history of other diseases of the digestive system

== ENCOUNTER 2017-11-18 17:53 | Observation (INO) | payer OTHER ==
[~2017-11-18] VITALS: Ht 165.1 cm; Wt 100.1 kg
--- NOTE | 2017-11-18 17:41 | EMERGENCY ROOM VISIT NOTE ---
History Report prepared by Ashok: Flo Ulloa Under the Supervision of: Dr. Daniela Xavier D.O. First contact with patient: 17:39 Stated Complaint: STROKE ALERT History of Present Illness The patient is a 47 year old female with a history of migraines who presents to the Emergency Room via EMS with complaints of persistent stroke symptoms that started around an hour and a half ago. Per the medics, the patient complained of visual disturbances last night. The patient then woke up this morning with a headache, which was then followed with left-sided weakness and slurred speech starting around 1640 this afternoon. The patient states that she has never experienced symptoms like this with her previous migraines. She had a stroke at the age of 19 due to smoking and control use. Source of History: patient, EMS Onset: An hour and a half ago (1629) Position: other (global - stroke symptoms) Timing: other (persistent) Associated Symptoms: + headache, + weakness (left-sided) Note: Associated symptoms: Visual disturbances, slurred speech. Review of Systems See HPI for pertinent positives & negatives. A total of 10 systems reviewed and were otherwise negative. Past Medical & Surgical Medical Problems: (1) Adjustment disorder (2) Asthma (3) Depression (4) Diverticulosis Colon (W/O Ment Of Hemorrhage) (5) Drug overdose, intentional (6) DWAYNE (generalized anxiety disorder) (7) Gastroparesis (8) HLD (hyperlipidemia) (9) HTN (hypertension) (10) IBS (irritable bowel syndrome) (11) Kidney stone (12) Migraine (13) Migraine headache (14) Postconcussion Syndrome (15) Posttraumatic Stress Disorder (16) Stroke-like symptoms (17) Suicide attempt by drug ingestion (18) Tobacco abuse Surgical Problems: (1) H/O colonoscopy (2) H/O esophagogastroduodenoscopy (3) H/O tubal ligation (4) H/O unilateral oophorectomy (5) History of partial colectomy (6) Hx of appendectomy (7) Hx of tonsillectomy (8) S/P cholecystectomy (9) S/P MARLON (total abdominal hysterectomy) Family History FH: heart disease MOTHER ( from [place] at age 66) BROTHER (details unknown) Gallbladder disease Heart valve abnormality SISTER Hypertension Social History Smoking Status: Current Every Day Smoker Alcohol Use: none Drug Use: none Marital Status: in relationship Housing Status: lives with significant other Occupation Status: employed Current/Historical Medications Scheduled Clonidine Hcl (Catapres), 0.1 MG PO HS Famotidine (Famotidine), 20 MG PO BID Venlafaxine Hcl (Effexor Extended Rel), 150 MG PO DAILY Venlafaxine Hcl (Effexor Extended Rel), 75 MG PO DAILY Scheduled PRN Acetaminophen (Mapap), 650 MG PO Q4H PRN for Pain or Fever Albuterol Hfa (Ventolin Hfa), 2 PUFFS INH Q4H PRN for Wheezing Clonazepam (Klonopin), 1 MG PO BID PRN for Anxiety Epinephrine (Epipen 2-Cisco), 0.3 MG IM UD PRN for ALLERGIC REACTION Allergies Coded Allergies: Ibuprofen (Verified Allergy, Severe, SOB-HIVES, 11/04/17) Iodinated Diagnostic Agents (Verified Allergy, Intermediate, HIVES, ) Tramadol (Verified Allergy, Intermediate, HIVES, 11/04/17) Penicillins (Verified Allergy, Mild, ANAPHYLAXIS, 11/04/17) Moxifloxacin (Verified Allergy, Unknown, UNKNOWN, 11/04/17) Sulfa Antibiotics (Verified Allergy, Unknown, unkn, 11/04/17) as a child Haloperidol (Verified Adverse Reaction, Intermediate, "KEEPS ME AWAKE, CAN 'T SLEEP"., 11/04/17) Ketorolac Tromethamine (Verified Adverse Reaction, Intermediate, "TEARS STOMACH UP", 11/04/17) Prochlorperazine (Verified Adverse Reaction, Unknown, ANXIETY/JITTERY/ HYPOTENSION, 11/04/17) Physical Exam Vital Signs Date Time Temp Pulse Resp B/P (MAP) Pulse Ox O2 Delivery O2 Flow Rate FiO2 11/18/17 23:30 82 18 120/87 95 Room Air 11/18/17 22:13 83 11/18/17 21:50 90 20 148/90 96 Room Air 11/18/17 19:53 76 127/88 99 Room Air 11/18/17 19:21 79 132/81 99 Room Air 11/18/17 19:10 83 99 Room Air 11/18/17 18:45 88 18 136/81 99 Room Air 11/18/17 18:27 92 18 123/88 100 Room Air 11/18/17 18:18 99 Room Air 11/18/17 18:13 87 11/18/17 17:55 92 18 130/94 100 Room Air Physical Exam GENERAL: alert, well appearing, well nourished, no distress, non-toxic EYE EXAM: normal conjunctiva, PERRL and EOM's grossly intact OROPHARYNX: no exudate, no erythema, lips, buccal mucosa, and tongue normal and mucous membranes are moist NECK: supple, no nuchal rigidity, no adenopathy, non-tender LUNGS: Clear to auscultation. Normal chest wall mechanics HEART: no murmurs, S1 normal and S2 normal ABDOMEN: abdomen soft, non-tender, normo-active bowel sounds, no masses, no rebound or guarding. BACK: Back is symmetrical on inspection and there is no deformity, no midline tenderness, no CVA tenderness. SKIN: no rashes and no bruising UPPER EXTREMITIES: upper extremities are grossly normal. LOWER EXTREMITIES: No pitting edema. NEURO EXAM: Normal sensorium. Patient has left-sided weakness in her leg worse than her arm. Left-sided sensory deficits, some dysarthria. Normal gaze. No obvious facial droop. Patient is oriented. NIHSS 7 Medical Decision & Procedures ER Provider Diagnostic Interpretation: Radiology results have been interpreted by the radiologist and reviewed by me. HEAD CT NONCONTRAST CT DOSE: 655.73 mGy.cm HISTORY: Stroke symptoms. TECHNIQUE: Multiaxial CT images of the head were performed without the use of intravenous contrast. Automated exposure control was utilized for this study. A dose lowering technique was utilized adhering to the principles of ALARA. Comparison: Head CT 11/05/2016. Findings: The paranasal sinuses and mastoid air cells are clear. The calvarium and skull base are intact. The ventricles and sulci are within normal limits. There is no mass, hematoma, midline shift, or acute infarct. Impression: No acute intracranial abnormality. Electronically signed by: Artur Dick M.D. 11/18/2017 6:11 PM Dictated Date/Time: 11/18/2017 6:08 PM MRI head: No MRI evidence of recent ischemic insult or enhancing intracranial mass. No hydrocephalus. No acute intracranial blood products. Limited debris left ethmoid air cells. Comparison CT dated 11/18/2017, MRI brain dated 09/29/2009 Radiologist: Vincent So M.D. Laboratory Results 11/18/17 18:11 Red Blood Count 4.59, Mean Corpuscular Volume 91.1, Mean Corpuscular Hemoglobin 30.1, Mean Corpuscular Hemoglobin Concent 33.0, Mean Platelet Volume 9.2, Neutrophils (%) (Auto) 54.2, Lymphocytes (%) (Auto) 33.5, Monocytes (%) (Auto) 6.1, Eosinophils (%) (Auto) 5.7, Basophils (%) (Auto) 0.4, Neutrophils # (Auto) 5.24, Lymphocytes # (Auto) 3.24, Monocytes # (Auto) 0.59, Eosinophils # (Auto) 0.55, Basophils # (Auto) 0.04 11/18/17 18:11 Test 11/18/17 18:05 11/18/17 18:11 Bedside Glucose 91 mg/dl (70-90) White Blood Count 9.67 K/uL (4.8-10.8) Red Blood Count 4.59 M/uL (4.2-5.4) Hemoglobin 13.8 g/dL (12.0-16.0) Hematocrit 41.8 % (37-47) Mean Corpuscular Volume 91.1 fL (80-100) Mean Corpuscular Hemoglobin 30.1 pg (25-34) Mean Corpuscular Hemoglobin Concent 33.0 g/dl (32-36) Platelet Count 240 K/uL (130-400) Mean Platelet Volume 9.2 fL (7.4-10.4) Neutrophils (%) (Auto) 54.2 % Lymphocytes (%) (Auto) 33.5 % Monocytes (%) (Auto) 6.1 % Eosinophils (%) (Auto) 5.7 % Basophils (%) (Auto) 0.4 % Neutrophils # (Auto) 5.24 K/uL (1.4-6.5) Lymphocytes # (Auto) 3.24 K/uL (1.2-3.4) Monocytes # (Auto) 0.59 K/uL (0.11-0.59) Eosinophils # (Auto) 0.55 K/uL (0-0.5) Basophils # (Auto) 0.04 K/uL (0-0.2) RDW Standard Deviation 44.2 fL (36.4-46.3) RDW Coefficient of Variation 13.5 % (11.5-14.5) Immature Granulocyte % (Auto) 0.1 % Immature Granulocyte # (Auto) 0.01 K/uL (0.00-0.02) Prothrombin Time 10.3 SECONDS (9.0-12.0) Prothromb Time International Ratio 1.0 (0.9-1.1) Activated Partial Thromboplast Time 30.2 SECONDS (21.0-31.0) Partial Thromboplastin Ratio 1.2 Anion Gap 3.0 mmol/L (3-11) Est Creatinine Clear Calc Drug Dose 92.9 ml/min Estimated GFR () 86.0 Estimated GFR (Non- 74.2 BUN/Creatinine Ratio 11.1 (10-20) Calcium Level 9.4 mg/dl (8.5-10.1) Magnesium Level 2.2 mg/dl (1.8-2.4) Total Creatine Kinase 101 U/L (26-192) Creatine Kinase MB 1.1 ng/ml (0.5-3.6) Creatine Kinase MB Ratio 1.1 (0-3.0) Troponin I < 0.015 ng/ml (0-0.045) Laboratory results per my review. Medications Administered Medications (Trade) Dose Ordered Sig/Lorna Route Start Time Stop Time Status Last Admin Dose Admin Sodium Chloride 1,000 ml @ 50 mls/hr Q20H IV 11/18/17 17:40 11/19/17 02:11 DC 11/18/17 18:25 50 MLS/HR Ondansetron HCl (Zofran Inj) 4 mg STK-MED ONCE .ROUTE 11/18/17 19:02 11/18/17 19:03 DC 11/18/17 19:08 4 MG Acetaminophen 1000 mg/Empty Bag 100 ml @ 400 mls/hr NOW STAT IV 11/18/17 19:36 11/18/17 19:50 DC 11/18/17 19:57 400 MLS/HR Lorazepam (Ativan Inj) 1 mg NOW STAT IV 11/18/17 19:36 11/18/17 19:39 DC 11/18/17 19:56 1 MG Diphenhydramine HCl (Benadryl Inj) 25 mg NOW STAT IV 11/18/17 20:13 11/18/17 20:15 DC 11/18/17 20:20 25 MG Promethazine HCl 25 mg/Sodium Chloride 51 ml @ 204 mls/hr NOW STAT IV 11/18/17 20:24 11/18/17 20:38 DC 11/18/17 21:07 204 MLS/HR Sumatriptan Succinate (Imitrex Tab) 50 mg Q6H PRN PO 11/19/17 00:30 11/19/17 16:00 DC 11/19/17 11:56 50 MG ECG Indication: weakness Rate (beats per minute): 88 Rhythm: normal sinus Findings: no acute ischemic change, no ectopy, other (normal axis, normal intervals) Change: EKG: Patient's electrocardiogram per my interpretation. ED Course 1739: Ordered NSS 1000 ml @ 50 mls/hr IV. 1752: The patient was evaluated in room A1. A complete history and physical exam was performed. 1820: I discussed the patient with Dr. Hughes - [facility] - he will do a bedside evaluation. 1916: I reevaluated the patient and Dr. Hughes is still doing his examination. 1925: I discussed the patient again with Dr. Hughes - he does not think it is a stroke, but still recommended to get an MRI/MRA. The patient is not a TPA candidate. 1935: Ordered Ativan Inj 1 mg IV. 1953: I talked to the patient's fiance on the phone, and he says that the patient has not had any recent illnesses, but was recently released from [facility], and the patient's medications were changed. 2012: Ordered Zofran Inj 4 mg IV, Benadryl Inj 25 mg IV. 2023: Ordered Promethazine HCl 25 mg/Sodium Chloride 51 ml @ 204 mls/hr IV. 0: Pt ambulated to the bathroom with a steady gait. Still with slightly slurred speech. 2303: I discussed the patient with Dr. Dalton Joya hand i blocker - he will evaluate the patient for further treatment. 9: Called by [facility], Dr. So, MRI negative for any acute process. 2345: Pt reexamined at bedside. States left sided weakness and sensory changes have resolved. Pt complaints of persistent severe headache. States it has been a long time since she had a headache of this severity. States she typically takes Tylenol and Benadryl at home for headaches. 2347: Discussed with Dr. Hughes, [facility] neurology. Updated on MRI results. No additional medication recommendations at this time. Does not feel needs ASA unless recommended by cardiology for cardiac prophylaxis. Medical Decision Differential Diagnosis includes but is not limited to dehydration, stroke, anemia, hypoglycemia, hyponatremia, hypernatremia, urinary tract infection, pneumonia, bronchitis, sepsis, gastroenteritis, additional abdominal pathology, metabolic abnormalities and infections. Given negative stroke evaluation here and extensive consult with neurology, I feel patient is more likely to have a complex migraine and status migrainosus and possible component of psychiatric illness intermitting to symptoms here. Discussed with hospitalist for continued evaluation and treatment of her headaches in the hospital since monitor for complete resolution of her strokelike symptoms. Patient's additional labs here reassuring. I spent extensive time discussing the case with multiple consultants as well as updating the patient's family in addition to reassessing the patient. I do not suspect underlying infectious or acute vascular etiology. Medication Reconcilliation Current Medication List: was personally reviewed by me Blood Pressure Screening Patient's blood pressure: Elevated blood pressure Blood pressure disposition: Elevated BP felt to be situational Consults Time Called: 1817 Consulting Physician: Dr. Hughes - [facility] Returned Call: 1820 I discussed the patient with Dr. Hughes - [facility] - he will do a bedside evaluation. Additional Consults: Time Called: -- Consulted Physician: Dr. Hughes Returned Call: 1925 Additional Comments: I discussed the patient again with Dr. Hughes - he does not think it is a stroke, but still recommended to get an MRI/MRA. The patient is not a TPA candidate. Time Called: 2299 Consulted Physician: Dr. Dalton Joya hand i blocker Returned Call: 2303 Additional Comments: I discussed the patient with Dr. Dalton Joya hand i blocker - he will evaluate the patient for further treatment. Impression Primary Impression: Left-sided weakness Additional Impressions: Slurred speech Headache Critical Care I have personally spent greater than 60 minutes of critical care time in the direct management of this patient. This includes bedside care, interpretation of diagnostic studies, and testing, discussion with consultants, patient, and family members, and other required patient management activities. This 60 minutes is in excess of all separately billable procedures. Scribe Attestation The scribe's documentation has been prepared under my direction and personally reviewed by me in its entirety. I confirm that the note above accurately reflects all work, treatment, procedures, and medical decision making performed by me. Departure Information Dispostion Being Evaluated By Hospitalist Prescriptions Acetaminophen (MAPAP) 325 Mg Tab 650 MG PO Q4H Y for Pain or Fever for 7 Days do not exceed more than 4 tabs a day Prov: Froy Burroughs MD 11/19/17 Referrals Holland Naik M.D. (PCP) Stroke History Time Last Known Well Yesterday Stroke t-PA Criteria Reviewed Does NOT meet criteria for t-PA Reason t-PA Not Given Treatment not indicated Problem Qualifiers Additional Impressions: Headache Headache type: unspecified Headache chronicity pattern: acute headache Intractability: not intractable Qualified Codes: R51 - Headache
[~2017-11-18 17:53] MED LIST changes: -CLON1TAB3 PO; -FAMO1TAB47 PO; +SODIUM CHLORIDE 0.9% 1000ML 1,000 ML IV SCH; +SPHSL5 SL; +TPM25 PO; -VENL-273 PO
[2017-11-18] MEDS ORDERED: ONDANSETRON INJ 2 MG/ML 2 ML VIAL ONE ×2 (18:03→19:02)
--- NOTE | 2017-11-18 18:12 | DIAGNOSTIC IMAGING REPORT ---
HEAD CT NONCONTRAST CT DOSE: 655.73 mGy.cm HISTORY: Stroke symptoms. TECHNIQUE: Multiaxial CT images of the head were performed without the use of intravenous contrast. Automated exposure control was utilized for this study. A dose lowering technique was utilized adhering to the principles of ALARA. Comparison: Head CT 11/05/2016. Findings: The paranasal sinuses and mastoid air cells are clear. The calvarium and skull base are intact. The ventricles and sulci are within normal limits. There is no mass, hematoma, midline shift, or acute infarct. Impression: No acute intracranial abnormality. Electronically signed by: Artur Dick M.D. 11/18/2017 6:11 PM Dictated Date/Time: 11/18/2017 6:08 PM
[2017-11-18 18:22] LABS: BASO % 0.4 %; BASO ABS # 0.04 K/uL (0-0.2); EOS % 5.7 %; EOS ABS # 0.55 K/uL (0-0.5); HEMATOCRIT 41.8 % (37-47); HEMOGLOBIN 13.8 g/dL (12.0-16.0); IG# 0.01 K/uL (0.00-0.02); LYMPH % 33.5 %; LYMPH ABS # 3.24 K/uL (1.2-3.4); MEAN CELL VOLUME 91.1 fL (80-100); MEAN CORPUSCULAR HEMOGLOBIN 30.1 pg (25-34); MEAN PLATELET VOLUME 9.2 fL (7.4-10.4); MONO % 6.1 %; MONO ABS # 0.59 K/uL (0.11-0.59); NEUT % 54.2 %; NEUT ABS # 5.24 K/uL (1.4-6.5); PLATELET COUNT 240 K/uL (130-400); RED CELL DISTRIBUTION WIDTH CV 13.5 % (11.5-14.5); RED CELL DISTRIBUTION WIDTH SD 44.2 fL (36.4-46.3); WHITE BLOOD COUNT 9.67 K/uL (4.8-10.8)
[2017-11-18 18:34] LABS: PTT PATIENT 30.2 SECONDS (21.0-31.0)
[2017-11-18 18:44] LABS: BLOOD UREA NITROGEN 10 mg/dl (7-18); CALCIUM 9.4 mg/dl (8.5-10.1); CARBON DIOXIDE 29 mmol/L (21-32); CREATININE 0.93 mg/dl (0.60-1.20); GLUCOSE 91 mg/dl (70-99); POTASSIUM 4.1 mmol/L (3.5-5.1); SODIUM 138 mmol/L (136-145)
[2017-11-18 18:49] LABS: CKMB 1.1 ng/ml (0.5-3.6)
[2017-11-18] MEDS ORDERED: ACETAMINOPHEN IV 1,000 MG in EMPTY BAG 0 ML IV STA (19:36)
[2017-11-18] MEDS ORDERED: LORAZEPAM 2 MG/ML 1 ML VIAL IV STA (19:36)
[2017-11-18] MEDS ORDERED: FAMO1TAB47 PO (20:05)
[2017-11-18] MEDS ORDERED: VNTHFA/IN INH (20:09)
[2017-11-18] MEDS ORDERED: EPP3/2 IM (20:10)
[2017-11-18] MEDS ORDERED: DiphenhydrAMINE HCL 50 MG/ML VIAL IV STA (20:13)
[2017-11-18] MEDS ORDERED: ONDANSETRON INJ 2 MG/ML 2 ML VIAL IV STA (20:13)
[2017-11-18] MEDS ORDERED: CLON1TAB3 PO (20:18)
[2017-11-18] MEDS ORDERED: PROMETHAZINE HCL INJ 25 MG in SODIUM CHLORIDE 0.9% 50ML 50 ML IV STA (20:24)
[2017-11-18] MEDS ORDERED: EFFSR75 PO (22:30)
[2017-11-18] MEDS ORDERED: CTP1CL PO (22:45)
[2017-11-18] MEDS ORDERED: GADAVIST IV PRN (23:15)
[2017-11-19] MEDS ORDERED: ALBUTEROL HFA 8 GM INHALER INH PRN (00:30)
[2017-11-19] MEDS ORDERED: CLONAZEPAM 1 MG TAB PO PRN (00:30)
[2017-11-19] MEDS ORDERED: ACETAMINOPHEN 325 MG TAB PO PRN (00:45)
[2017-11-19] MEDS ORDERED: ONDANSETRON INJ 2 MG/ML 2 ML VIAL IV PRN (00:45)
[2017-11-19 02:00] VITALS: BP 123/87; PULSE 86; TEMP 36.8; O2SAT 94; Ht 165.1 cm; Wt 100.1 kg
[2017-11-19] MEDS: SUMATRIPTAN SUCCINATE 50 MG TAB PO PRN ×2 (02:33→11:56)
[2017-11-19] MEDS ORDERED: IV FLUIDS COMPLETED PRN (03:00)
--- NOTE | 2017-11-19 03:03 | HISTORY & PHYSICAL EXAMINATION ---
DATE OF ADMISSION: 11/18/2017 PRIMARY CARE PHYSICIAN: Holland Naik MD CHIEF COMPLAINT: Visual symptoms with headache since last night. HISTORY OF PRESENT COMPLAINT: She is a 47-year-old female, obese with significant past medical history of generalized anxiety disorder, post-traumatic stress disorder, irritable bowel syndrome, fibromyalgia, history of tobacco abuse, hyperlipidemia, history of gastroparesis, migraine, and esophageal reflux. Apparently, she has been complaining of some visual symptoms like, at times she cannot see anything that happened last night. She went to bed and she woke up this morning with a severe headache involving the back and top of her head. She took Tylenol, but the pain did not resolve and the pain continued and around 4:00 p.m., she started to have more visual symptoms and it was hard for her to speak with some garbled speech as per her and also, she noted to have weakness involving the left-sided extremities and she was feeling that those do not belong to her. She was taken to the Emergency Room. At the ER, a stroke alert was called and she was evaluated by [place] neurologist, who did not think any stroke and a need for any TPA and/or any other medications and an apparent MRI of the brain was negative for any stroke and the patient's symptoms resolved more or less completely, though she persisted to have some headache on the top and back of her head, but given the history of questionable stroke, she was admitted to telemetry unit for continuation of care. PAST MEDICAL HISTORY: Significant for generalized anxiety disorder, post-traumatic stress disorder, irritable bowel syndrome, fibromyalgia, history of tobacco use, hyperlipidemia, history of gastroparesis, migraine, adjustment disorder with depressed mood, gastritis with esophageal reflux, esophagitis. PAST SURGICAL HISTORY: Laparoscopic appendectomy, cholecystectomy, laparoscopic removal of adnexal structure, partial colectomy, tonsillectomy as a child, and total hysterectomy. FAMILY HISTORY: Father has diabetes, brother has heart disorder, and mother from heart disorder. SOCIAL HISTORY: She is . She has 3 children. She smokes about half a pack per day. She does not use any alcohol. She has been reasonably mobile. ALLERGIES: SHE IS ALLERGIC TO IBUPROFEN, CONTRAST MEDIA, TRAMADOL, PENICILLIN, MOXIFLOXACIN, SULFA, HALOPERIDOL, TORADOL, AND PROCHLORPERAZINE. MEDICATIONS: As an outpatient, she has been on Ventolin inhaler as directed, Klonopin 1 mg b.i.d. as needed, Catapres 0.1 mg at bedtime, EpiPen, famotidine 20 mg b.i.d., and Effexor 150 mg weekly and 75 mg daily as well. REVIEW OF SYSTEMS: Other systems reviewed are unremarkable except for those mentioned in history of present complaint. PHYSICAL EXAMINATION: GENERAL: On examination in the Emergency Room, she was not having any acute distress except from headache involving the top and back of the head, but no other associated symptoms and the symptoms of visual nature and also the left extremities almost gone and she does not have any problem with her speech. VITAL SIGNS: Temperature 36, seems to be afebrile, pulse was 88, blood pressure 136/81, saturation 99% on room air. HEENT: Unremarkable. NECK: Supple. No JVD, no bruit. CHEST: Clear to auscultate bilaterally. HEART: S1, S2 regular. ABDOMEN: Soft, benign, nontender, no organomegaly. Bowel sounds present. EXTREMITIES: Negative for any edema. MUSCULOSKELETAL SYSTEM: Did not show any acute arthritis involving any joint. CENTRAL NERVOUS SYSTEM: She was alert, awake, oriented x3 and no focal sensory and/or motor deficit appreciated. LABORATORY DATA: Noted today, white count was 9.67, H&H 13.8/41.8, platelet was 214. Sodium 138, potassium 4.1, chloride 106, carbon dioxide 29, BUN 10, creatinine 0.93, random glucose 91, CK-MB unremarkable. Troponin less than 0.015. PT/INR unremarkable. CT of the head, no acute intracranial abnormality. MRI and MRA of the head, no acute stroke. IMPRESSION AND PLAN: 1. Stroke-like symptoms with left-sided weakness, dysarthria and also visual symptoms. A stroke alert was called in upon coming to the Emergency Room. She was evaluated by Dr. Hughes at [facility]. No further recommendation for her symptoms. MRI and MRA have been negative for any stroke. We will get a neurology evaluation while in the hospital and we will get neuro check Q shift. She will be admitted to telemetry unit. We will get a carotid ultrasound and also echocardiogram. 2. Generalized anxiety disorder with a post-traumatic stress disorder and also adjustment disorder with a depressed mood. Continue with the current medications at this time. 3. Esophageal reflux. Continue with famotidine. 4. Migraine. She does not take any medications for that. She cannot take any ibuprofen and/or Toradol. We will start with a small dose of Imitrex. 5. Deep venous thrombosis prophylaxis with subcutaneous heparin. 6. Code status. She will be a full code. In my clinical judgment, the beneficiary meets criteria as per CMS for 2 midnights' stay in the hospital. [email or web address]
[2017-11-19] MEDS: HEPARIN SOD 5000 UNIT/0.5 ML CARP SQ SCH ×2 (05:48→12:14)
--- NOTE | 2017-11-19 06:39 | DIAGNOSTIC IMAGING REPORT ---
MRI OF THE BRAIN WITHOUT AND WITH IV CONTRAST CLINICAL HISTORY: Left-sided weakness, headaches and slurred speech. Evaluate for stroke. COMPARISON STUDY: MRI of the brain September 29, [address] performed earlier today. TECHNIQUE: Utilizing a 1.5 Lotus magnet and dedicated coil, multiplanar, multiecho imaging of the brain was performed pre and postcontrast administration. IV administration of 10 mL of Gadavist contrast was uneventful. FINDINGS: No foci of restricted effusion are noted. No acute intracranial hemorrhage, midline shift or mass effect is present. Ventricular system is normal. Basilar cisterns are patent. There are no extra-axial collections. Flow-voids for the major intracranial vessels are present. There is no intracranial mass or pathologic enhancement. Minimal white matter T2 hyperintensity is noted. Orbits are unremarkable. There is minimal mucosal thickening of the left ethmoid sinuses. Calvarial signal is normal. IMPRESSION: 1. No acute intracranial findings. 2. No intracranial mass or pathologic enhancement. Electronically signed by: Henry Epstein M.D. 11/19/2017 6:38 AM Dictated Date/Time: 11/19/2017 6:34 AM
[2017-11-19 07:19] VITALS: BP 118/80; PULSE 85; TEMP 36.7; O2SAT 91
[2017-11-19] MEDS ORDERED: VENLAFAXINE HCL XR 75 MG CAPXR PO SCH (09:00)
[2017-11-19] MEDS ORDERED: VENLAFAXINE HCL XR 150 MG CAPXR PO SCH (09:00)
[2017-11-19] MEDS ORDERED: FAMOTIDINE 20 MG TAB PO SCH (09:00)
--- NOTE | 2017-11-19 11:08 | CONSULTATION REPORT ---
DATE OF CONSULTATION: 11/19/2017 REASON FOR CONSULTATION: Possible complicated migraine. HISTORY OF PRESENT ILLNESS: Chantelle is a 47-year-old left-handed female with a history of anxiety, PTSD, irritable bowel, fibromyalgia, hyperlipidemia, not on meds, gastroparesis, gastritis, esophagitis and history of migraine. Two days prior to admission while driving home from work, she noted some blind spots in her vision, more so on the left eye than the right eye. This resolved some point after she went home and upon awakening on Monday, she had a typical migrainous headache which was occipital to vertex throbbing. She noted ongoing left visual symptoms and they worsened approximately at 3:00 p.m. She describes them as black spots. There was no distortion, scintillation, colored phenomenon. She then noted some tingling in the fingers of her left hand and left arm weakness and left leg weakness as well as potentially some difficulty with word finding and a facial droop. Her headache had escalated and there was nausea and vomiting. She came to the Emergency Room via ambulance because of the concerns of the ongoing symptoms. The symptoms lasted until the middle of the night. An MRI of the brain was performed with and without contrast that was normal. A CT of the head was normal. Carotid ultrasound and echocardiography are to be done. Stroke Neurology from [place] saw the patient and by report, felt this was migrainous and did not recommend TPA. Her EKG was in normal sinus rhythm. On admission, she was afebrile, pulse was 92, respirations 18, 130/94, 100% on room air. Her labs were notable for normal white count, H&H and platelet count. Her PT and PTT were normal. Chemistry profile was normal. Point of care blood sugar was 91. In terms of history, the patient episodically has migraine headaches that are very similar and the blackness of vision, which usually lasts a shorter period of time. She has no history of other complicated neurologic symptoms associated with the headache. She has not been ill recently. She has not had any head or neck trauma, chiropractor manipulation of the neck, medical or dental procedures. She felt cold on the day of the headache, but has not had any fevers, chills or sweats. She had some mild diarrhea. She has irritable bowel, but typically has constipation. She has not had any chest pain, palpitation, shortness of breath, calf swelling, tenderness, or rash. None of her medicines are new or changed in dose. She was not taking anything [id number] other than Tylenol. When she has a typical migraine, she will take Benadryl and Tylenol and this typically works. PAST MEDICAL HISTORY: As above. No history of DVT, PE, miscarriage, MA, rheumatic fever, murmur, seasonal asthma. PAST SURGICAL HISTORY: Laparoscopic appendectomy, cholecystectomy, laparoscopic removal of an adnexal structure, partial colectomy due to diverticulitis, tonsillectomy, partial hysterectomy. FAMILY HISTORY: Her sister has migraines. Father diabetes, father heart disease. Mother from heart disease, although the patient denies any early coronary artery disease, MA, stroke, DVT, PE. SOCIAL HISTORY: She smokes. She does not drink alcohol. She works at [employer] ALLERGIES: SHE IS ALLERGIC TO IBUPROFEN, WHICH CAUSES HIVES, CONTRAST MEDIA, TRAMADOL, PENICILLIN, MOXIFLOXACIN, SULFA, HALDOL, TORADOL, AND PROCHLORPERAZINE. She does not take aspirin regularly, although she has taken aspirin without adverse effects. MEDICATIONS: Ventolin, Klonopin, Catapres, which she takes for sleep, EpiPen, famotidine, Effexor. REVIEW OF SYSTEMS: As above. PHYSICAL EXAMINATION: VITAL SIGNS: 36.7, 85, 16, 118/80, 91% on room air. GENERAL: The patient is awake and alert, normal speech and language. Affect appropriate. She is in no distress. NECK: There are no carotid bruits. HEART: No heart murmurs. Heart has regular rate and rhythm. Pulses are palpable in both feet and at the wrists. EXTREMITIES: No calf swelling or tenderness is noted. LUNGS: Clear. ABDOMEN: Soft and nontender. NEUROLOGIC: Pupils are dilated, but reactive. Optic nerves, had difficulty on the right, but clearly on the left, there was normal optic nerve with normal venous pulsations. Normal rivas, motility, facial sensation and symmetry. She has some redundant tissue above the left eye. Tongue is midline. Speech is nondysarthric. There is normal bulk and tone. Full strength, no drift. Normal rapid alternating movement. Symmetric reflexes. Downgoing toes. [id number] and sgbb-[id number]-[id number] are normal. Sensation intact to light touch. No double simultaneous extinction, temperature and vibration. Gait is unremarkable. Tandem unremarkable. IMPRESSION AND PLAN: Likely complicated migraine. I would advocate a carotid ultrasound and an echo with a bubble study. The patient was initially declining both because of a high copay with her insurance. In general, we spoke about a hypercoagulable state workup, which we would probably perform in someone of her age. She would elect not to do so if it is not a necessity. I do not think she needs anything prophylactically for migraine. I would not use triptans in this patient because of this history of complicated migraines. Previously, Benadryl and Tylenol have been helpful and I would continue them prn I would assess her lipid status and treat if she meets criteria. She should see me in the office 2-3 weeks postdischarge. If she has recurrent symptoms, she should seek medical advice. ITA
[2017-11-19 11:24] VITALS: BP 132/75; PULSE 78; TEMP 36.8; O2SAT 95
--- NOTE | 2017-11-19 11:25 | DIAGNOSTIC IMAGING REPORT ---
CAROTID ARTERY ULTRASOUND CLINICAL HISTORY: Left-sided weakness, headaches and slurred speech. COMPARISON STUDY: None. TECHNIQUE: Real-time, grayscale, and color Doppler sonography of the carotid and vertebral arteries was performed. Images were viewed in the transverse and longitudinal planes. FINDINGS: There is mild atherosclerotic plaque. Velocity measurements are listed below. COMMON CAROTID PEAK SYSTOLIC VELOCITY (CM/S): RIGHT 77 LEFT 76 ICA PEAK SYSTOLIC VELOCITY (CM/S): RIGHT 109 LEFT 135 Systolic ratios between the internal to common carotid arteries are normal. Antegrade flow is seen in the vertebral arteries. The external carotid arteries are patent. Blood pressures were not obtained in this patient. IMPRESSION: Mild atherosclerotic plaque with mildly elevated peak systolic velocity within the proximal to mid left internal carotid artery with a normal systolic ratio. This finding could be due to a stenosis of 50-69% or vessel tortuosity. Electronically signed by: Henry Epstein M.D. 11/19/2017 11:23 AM Dictated Date/Time: 11/19/2017 11:19 AM
--- NOTE | 2017-11-19 13:26 | ECHOCARDIOGRAM REPORT ---
*NOTICE TO RECEIVING LIBERTARIAN AGENCY This information is strictly Confidential and protected under [place] law. [place] law prohibits you from making any further disclosure of this information unless further disclosure is expressly permitted by the written consent of the person to whom it pertains or is authorized by law. A general authorization for the release of medical or other information is not sufficient for this purpose. Hospital accepts no responsibility if the information is made available to any other person, INCLUDING THE PATIENT. Interpretation Summary * Name: TACO REYES Study Date: 11/19/2017 08:49 AM BP: 123/87 mmHg * Patient Location: [facility]\S\N289\S\2 HR: 86 * : 1970 (M/d/yyyy) Gender: Female Height: 65 in * Age: 47 yrs Ethnicity: SC Weight: 235 lb * Ordering Physician: Taylor Hoffman * Referring Physician: Self, Referred * Performed By: Chani Rene RDCS * * Reason For Study: Stroke like symptoms * BSA: 2.1 m2 * No cardiac source of emboli noted. * -- Conclusions -- * No cardiac source of emboli noted. * Injection of contrast documented no interatrial shunt. * The left ventricle is normal in size. * Ejection Fraction = 60-65%. * The right ventricular systolic function is normal. * The left atrial size is normal. * Right atrial size is normal. * No significant valvualr pathology. Procedure Details * A complete two-dimensional transthoracic echocardiogram was performed (2D, M-mode, Doppler and color flow Doppler). * A saline contrast injection was performed to assess for cardiac shunting. * The injection was performed through an intravenous line in the right arm. * The attending nurse who injected the saline contrast was GONZALEZ Aparicio. * A total of 10 cc of agitated saline was given. Left Ventricle * The left ventricle is normal in size. * There is normal left ventricular wall thickness. * Ejection Fraction = 60-65%. * Left ventricular systolic function is normal. Right Ventricle * The right ventricle is normal size. * The right ventricular systolic function is normal. Atria * The left atrial size is normal. * Right atrial size is normal. * The interatrial septum is intact with no evidence for an atrial septal defect. * Injection of contrast documented no interatrial shunt. Mitral Valve * The mitral valve anatomy is normal. * Significant mitral regurgitation is absent. Tricuspid Valve * The tricuspid valve anatomy is normal. * Significant tricuspid regurgitation is absent. Aortic Valve * The aortic valve is normal in structure and function. Pulmonic Valve * The pulmonic valve is not well seen, but is grossly normal. * There is no pulmonic valvular regurgitation. Great Vessels * The aortic root and proximal ascending aorta are normal sized. Pericardium/Pleural * There is no pericardial effusion. MMode 2D Measurements and Calculations IVSd 1.1 cm IVSs 1.1 cm LVIDd 4.1 cm LVIDs 2.9 cm LVPWd 0.81 cm LVPWs 1.6 cm IVS/LVPW 1.3 FS 29.8 % EDV(Teich) 74.1 ml ESV(Teich) 31.5 ml EF(Teich) 57.4 % EDV(cubed) 68.8 ml ESV(cubed) 23.8 ml EF(cubed) 65.4 % % IVS thick 4.2 % % LVPW thick 95.6 % LV mass(C)d 120.6 grams LV mass(C)dI 57.0 grams/m\S\2 LV mass(C)s 124.8 grams LV mass(C)sI 58.9 grams/m\S\2 SV(Teich) 42.6 ml SI(Teich) 20.1 ml/m\S\2 SV(cubed) 45.0 ml SI(cubed) 21.2 ml/m\S\2 Ao root diam 2.4 cm Ao root area 4.5 cm\S\2 ACS 1.7 cm LA dimension 3.4 cm LA/Ao 1.4 LVAd ap4 26.4 cm\S\2 LVLd ap4 7.5 cm EDV(MOD-sp4) 76.1 ml EDV(sp4-el) 78.5 ml LVAs ap4 14.9 cm\S\2 LVLs ap4 6.1 cm ESV(MOD-sp4) 32.5 ml ESV(sp4-el) 30.9 ml EF(MOD-sp4) 57.2 % EF(sp4-el) 60.7 % LVAd ap2 27.4 cm\S\2 LVLd ap2 8.2 cm EDV(MOD-sp2) 75.3 ml EDV(sp2-el) 78.2 ml LVAs ap2 14.3 cm\S\2 LVLs ap2 6.5 cm ESV(MOD-sp2) 28.8 ml ESV(sp2-el) 26.5 ml EF(MOD-sp2) 61.8 % EF(sp2-el) 66.1 % LVLd %diff 7.8 % EDV(MOD-bp) 79.0 ml LVLs %diff 6.7 % ESV(MOD-bp) 31.4 ml EF(MOD-bp) 60.2 % SV(MOD-sp4) 43.6 ml SI(MOD-sp4) 20.6 ml/m\S\2 SV(MOD-sp2) 46.5 ml SI(MOD-sp2) 21.9 ml/m\S\2 SV(MOD-bp) 47.6 ml SI(MOD-bp) 22.4 ml/m\S\2 SV(sp4-el) 47.6 ml SI(sp4-el) 22.5 ml/m\S\2 SV(sp2-el) 51.7 ml SI(sp2-el) 24.4 ml/m\S\2 Doppler Measurements and Calculations MV E max jose de jesus 94.9 cm/sec MV A max jose de jesus 61.5 cm/sec MV E/A 1.5 MV dec time 0.19 sec Ao V2 max 120.7 cm/sec Ao max PG 5.8 mmHg Ao max PG (full) 1.5 mmHg LV V1 max PG 4.3 mmHg LV V1 max 103.6 cm/sec PA V2 max 88.9 cm/sec PA max PG 3.2 mmHg TR max jose de jesus 244.8 cm/sec
[2017-11-19] MEDS ORDERED: ACET-1047 PO (14:12)
--- NOTE | 2017-11-19 14:22 | Progress Note ---
Medicine Progress Note Date & Time of Visit: Nov 19, 2017 at 14:22. Subjective patient seen resting in bed, comfortable states her headache is much better no weakness/numbness denies chest pain, dyspnea, dizziness, palpitations states she is ready and would like to be discharged Objective Last 8 Hrs Date Time Temp Pulse Resp B/P (MAP) Pulse Ox O2 Delivery O2 Flow Rate FiO2 11/19/17 12:00 Room Air 11/19/17 11:24 36.8 78 16 132/75 (94) 95 11/19/17 08:00 Room Air 11/19/17 07:19 36.7 85 16 118/80 (93) 91 Physical Exam: General- oriented x 3, not in distress, speaks in sentences with no effort Head- atraumatic Eyes- PERRL, EOMI, anicteric ENT- oropharynx clear Neck- supple, no JVD, no adenopathy, no thyromegaly; carotids +2/2 Lungs- clear to auscultation bilaterally, no rales/wheezes Heart- regular rhythm; no murmur, no gallop, no rub appreciated Abdomen- normal bowel sounds, soft, nontender, no masses Extremities- no pretibial edema, no calf tenderness; peripheral pulses intact Neuro- alert, oriented x 3; PERRL, EOMI; no facial palsy; no dysarthria; motor 5 /5 bilaterally; sensation 100% on all ext Skin- warm & dry Laboratory Results: Last 24 Hours Test 11/18/17 18:05 11/18/17 18:11 Bedside Glucose 91 mg/dl White Blood Count 9.67 K/uL Red Blood Count 4.59 M/uL Hemoglobin 13.8 g/dL Hematocrit 41.8 % Mean Corpuscular Volume 91.1 fL Mean Corpuscular Hemoglobin 30.1 pg Mean Corpuscular Hemoglobin Concent 33.0 g/dl Platelet Count 240 K/uL Mean Platelet Volume 9.2 fL Neutrophils (%) (Auto) 54.2 % Lymphocytes (%) (Auto) 33.5 % Monocytes (%) (Auto) 6.1 % Eosinophils (%) (Auto) 5.7 % Basophils (%) (Auto) 0.4 % Neutrophils # (Auto) 5.24 K/uL Lymphocytes # (Auto) 3.24 K/uL Monocytes # (Auto) 0.59 K/uL Eosinophils # (Auto) 0.55 K/uL Basophils # (Auto) 0.04 K/uL RDW Standard Deviation 44.2 fL RDW Coefficient of Variation 13.5 % Immature Granulocyte % (Auto) 0.1 % Immature Granulocyte # (Auto) 0.01 K/uL Prothrombin Time 10.3 SECONDS Prothromb Time International Ratio 1.0 Activated Partial Thromboplast Time 30.2 SECONDS Partial Thromboplastin Ratio 1.2 Sodium Level 138 mmol/L Potassium Level 4.1 mmol/L Chloride Level 106 mmol/L Carbon Dioxide Level 29 mmol/L Anion Gap 3.0 mmol/L Blood Urea Nitrogen 10 mg/dl Creatinine 0.93 mg/dl Est Creatinine Clear Calc Drug Dose 92.9 ml/min Estimated GFR () 86.0 Estimated GFR (Non- 74.2 BUN/Creatinine Ratio 11.1 Random Glucose 91 mg/dl Calcium Level 9.4 mg/dl Magnesium Level 2.2 mg/dl Total Creatine Kinase 101 U/L Creatine Kinase MB 1.1 ng/ml Creatine Kinase MB Ratio 1.1 Troponin I < 0.015 ng/ml Assessment & Plan Stroke-like symptoms with left-sided weakness, dysarthria and also visual symptoms, Resolved - most likely Complicated Migraine - A stroke alert was called in upon coming to the Emergency Room. She was evaluated by Dr. Hughes at [facility]. No further recommendation for her symptoms. - MRI Brain: no acute CVA Echo: * No cardiac source of emboli noted. * Injection of contrast documented no interatrial shunt. * The left ventricle is normal in size. * Ejection Fraction = 60-65%. * The right ventricular systolic function is normal. * The left atrial size is normal. * Right atrial size is normal. * No significant valvualr pathology. Carotid US: Mild atherosclerotic plaque with mildly elevated peak systolic velocity within the proximal to mid left internal carotid artery with a normal systolic ratio. This finding could be due to a stenosis of 50-69% or vessel tortuosity. - given Imitrex - headache and other neurologic symptoms resolved - evaluated by Neurologist Dr. Pimentel recommend outpatient ff up in 2 weeks Tylenol PRN - may need CT angio or MRA of the neck to confirm possible L ICA stenosis seen on Carotid US Generalized anxiety disorder with a post-traumatic stress disorder and also adjustment disorder with a depressed mood. - continue similar medications Esophageal reflux. Continue with famotidine. Disposition ff up with PCP in 3-5 days ff up with Neurologist in 2 weeks Current Inpatient Medications: Current Inpatient Medications Medications (Trade) Dose Ordered Sig/Lorna Route Start Time Stop Time Status Last Admin Dose Admin Gadobutrol (Gadavist) 10 mmol UD PRN IV 11/18/17 23:15 11/22/17 23:14 Albuterol (Ventolin Hfa Inhaler) 2 puffs Q4H PRN INH 11/19/17 00:30 12/19/17 00:29 Clonazepam (Klonopin Tab) 1 mg BID PRN PO 11/19/17 00:30 12/19/17 00:29 Clonidine HCl (Catapres Tab) 0.1 mg HS PO 11/19/17 21:00 12/19/17 20:59 11/19/17 11:03 0.1 MG Famotidine (Pepcid Tab) 20 mg BID PO 11/19/17 09:00 12/19/17 08:59 11/19/17 07:55 20 MG Venlafaxine HCl (effeXOR EXTENDED REL CAP) 75 mg DAILY PO 11/19/17 09:00 12/19/17 08:59 11/19/17 07:55 75 MG Venlafaxine HCl (effeXOR EXTENDED REL CAP) 150 mg DAILY PO 11/19/17 09:00 12/19/17 08:59 11/19/17 07:56 150 MG Sumatriptan Succinate (Imitrex Tab) 50 mg Q6H PRN PO 11/19/17 00:30 12/19/17 00:29 11/19/17 11:56 50 MG Heparin Sodium (Porcine) (Heparin Sq 5000 Unit/0.5ml) 5,000 unit Q8 SQ 11/19/17 06:00 12/19/17 05:59 11/19/17 05:48 5,000 UNIT Acetaminophen (Tylenol Tab) 650 mg Q4H PRN PO 11/19/17 00:45 12/19/17 00:44 Ondansetron HCl (Zofran Inj) 4 mg Q6H PRN IV 11/19/17 00:45 12/19/17 00:44 Miscellaneous (Iv Fluids Completed) 1 ea PRN PRN N/A 11/19/17 03:00 11/19/18 02:59
--- NOTE | 2017-11-19 14:22 | Discharge Instructions ---
Discharge Instructions Date of Service Nov 19, 2017. Admission Reason for Admission: Migraine Headache, Stroke-Like Symptoms Discharge Discharge Diagnosis / Problem: COMPLICATED MIGRAINE Discharge Goals Goal(s): Diagnostic testing, Therapeutic intervention Activity Recommendations Activity Limitations: as noted below (NO HEAVY EXERTION UNTIL RE-EVALUATED BY PRIMARY CARE PHYSICIAN) Lifting Limitations: until after follow-up appointment Exercise/Sports Limitations: until after follow-up appointment Driving or Machine Use: NO DRIVING UNTIL RE-EVALUATED BY PRIMARY CARE PHYSICIAN . Instructions / Follow-Up Instructions / Follow-Up CALL YOUR PRIMARY CARE PHYSICIAN OR RETURN TO THE ER IMMEDIATELY IF WITH RECURRENCE OR WORSENING OF SYMPTOMS. ENSURE ADEQUATE DAILY FLUID INTAKE. FOLLOW UP WITH DR. SHABAZZ ON THURSDAY NOVEMBER 23, 2017 AT 11:05 AM. FOLLOW UP WITH NEUROLOGIST DR. CUTLER IN 2 WEEKS. TEL NO. Current Hospital Diet Patient's current hospital diet: Regular Diet Discharge Diet Recommended Diet: Regular Diet Procedures Procedures Performed: CT HEAD , MRI BRAIN, ECHOCARDIOGRAM, CAROTID ULTRASOUND Pending Studies Studies pending at discharge: no Medical Emergencies . Who to Call and When: Medical Emergencies: If at any time you feel your situation is an emergency, please call 911 immediately. . Non-Emergent Contact Non-Emergency issues call your: Primary Care Provider, Neurologist Call Non-Emergent contact if: you have a fever, your pain is not controlled, your pain is worsening, you have any medication questions . . "Provider Documentation" section prepared by Froy Burroughs. . VTE Core Measure Inpt VTE Proph given/why not?: Unfractionated heparin SQ
[2017-11-19 14:59] VITALS: BP 126/75; PULSE 86; TEMP 36.9; O2SAT 93
--- NOTE | 2017-11-19 18:26 | Discharge Summary ---
Discharge Summary Date of Service Nov 19, 2017. Discharge Summary Admission Date: Nov 19, 2017 at 00:35 Discharge Date: Nov 19, 2017 Discharge Disposition: Home Principal Diagnosis: Stroke-like symptoms with left-sided weakness, dysarthria and also visual symptoms, Resolved - most likely Complicated Migraine Secondary Diagnoses/Problems: Please refer to hospital course below. Procedures: CAROTID ARTERY ULTRASOUND CLINICAL HISTORY: Left-sided weakness, headaches and slurred speech. COMPARISON STUDY: None. TECHNIQUE: Real-time, grayscale, and color Doppler sonography of the carotid and vertebral arteries was performed. Images were viewed in the transverse and longitudinal planes. FINDINGS: There is mild atherosclerotic plaque. Velocity measurements are listed below. COMMON CAROTID PEAK SYSTOLIC VELOCITY (CM/S): RIGHT 77 LEFT 76 ICA PEAK SYSTOLIC VELOCITY (CM/S): RIGHT 109 LEFT 135 Systolic ratios between the internal to common carotid arteries are normal. Antegrade flow is seen in the vertebral arteries. The external carotid arteries are patent. Blood pressures were not obtained in this patient. IMPRESSION: Mild atherosclerotic plaque with mildly elevated peak systolic velocity within the proximal to mid left internal carotid artery with a normal systolic ratio. This finding could be due to a stenosis of 50-69% or vessel tortuosity. MRI OF THE BRAIN WITHOUT AND WITH IV CONTRAST CLINICAL HISTORY: Left-sided weakness, headaches and slurred speech. Evaluate for stroke. COMPARISON STUDY: MRI of the brain September 29, [address] performed earlier today. TECHNIQUE: Utilizing a 1.5 Lotus magnet and dedicated coil, multiplanar, multiecho imaging of the brain was performed pre and postcontrast administration. IV administration of 10 mL of Gadavist contrast was uneventful. FINDINGS: No foci of restricted effusion are noted. No acute intracranial hemorrhage, midline shift or mass effect is present. Ventricular system is normal. Basilar cisterns are patent. There are no extra-axial collections. Flow-voids for the major intracranial vessels are present. There is no intracranial mass or pathologic enhancement. Minimal white matter T2 hyperintensity is noted. Orbits are unremarkable. There is minimal mucosal thickening of the left ethmoid sinuses. Calvarial signal is normal. IMPRESSION: 1. No acute intracranial findings. 2. No intracranial mass or pathologic enhancement. HEAD CT NONCONTRAST CT DOSE: 655.73 mGy.cm HISTORY: Stroke symptoms. TECHNIQUE: Multiaxial CT images of the head were performed without the use of intravenous contrast. Automated exposure control was utilized for this study. A dose lowering technique was utilized adhering to the principles of ALARA. Comparison: Head CT 11/05/2016. Findings: The paranasal sinuses and mastoid air cells are clear. The calvarium and skull base are intact. The ventricles and sulci are within normal limits. There is no mass, hematoma, midline shift, or acute infarct. Impression: No acute intracranial abnormality. ECHO * No cardiac source of emboli noted. * Injection of contrast documented no interatrial shunt. * The left ventricle is normal in size. * Ejection Fraction = 60-65%. * The right ventricular systolic function is normal. * The left atrial size is normal. * Right atrial size is normal. * No significant valvualr pathology. Consultations: Neurologist Dr. Pimentel Pending Studies/Follow-Up: Please refer to hospital course below. Medication Reconciliation New Medications: Acetaminophen (Mapap) 325 Mg Tab 650 MG PO Q4H PRN for Pain or Fever for 7 Days do not exceed more than 4 tabs a day Continued Medications: Albuterol Hfa (Ventolin Hfa) 200 Puffs/58343 Mcg Aers 2 PUFFS INH Q4H PRN for Wheezing Clonazepam (Klonopin) 1 Mg Tab 1 MG PO BID PRN for Anxiety Clonidine Hcl (Catapres) 0.1 Mg Tab 0.1 MG PO HS Epinephrine (Epipen 2-Cisco) 0.3 Mg Inj 0.3 MG IM UD PRN for ALLERGIC REACTION FOR SEVERE REACTION PLACE ORANGE END ON OUTER THIGH, PRESS FIRMLY AND HOLD IN PLACE FOR 10 SECONDS Famotidine (Famotidine) 20 Mg Tab 20 MG PO BID Venlafaxine Hcl (Effexor Extended Rel) 150 Mg Capcr 150 MG PO DAILY TAKE ONE 150 MG CAPSULE ALONG WITH ONE 75 MG CAPSULE TO EQUAL 225 MG DAILY DOSE Venlafaxine Hcl (Effexor Extended Rel) 75 Mg Capcr 75 MG PO DAILY TAKE ONE 75 MG CAPSULE ALONG WITH ONE 150 MG CAPSULE TO EQUAL 225 MG DAILY DOSE Admission Information HPI (per Admitting provider): PRIMARY CARE PHYSICIAN: Holland Shabazz MD CHIEF COMPLAINT: Visual symptoms with headache since last night. HISTORY OF PRESENT COMPLAINT: She is a 47-year-old female, obese with significant past medical history of generalized anxiety disorder, post-traumatic stress disorder, irritable bowel syndrome, fibromyalgia, history of tobacco abuse, hyperlipidemia, history of gastroparesis, migraine, and esophageal reflux. Apparently, she has been complaining of some visual symptoms like, at times she cannot see anything that happened last night. She went to bed and she woke up this morning with a severe headache involving the back and top of her head. She took Tylenol, but the pain did not resolve and the pain continued and around 4:00 p.m., she started to have more visual symptoms and it was hard for her to speak with some garbled speech as per her and also, she noted to have weakness involving the left-sided extremities and she was feeling that those do not belong to her. She was taken to the Emergency Room. At the ER, a stroke alert was called and she was evaluated by [facility] neurologist, who did not think any stroke and a need for any TPA and/or any other medications and an apparent MRI of the brain was negative for any stroke and the patient's symptoms resolved more or less completely, though she persisted to have some headache on the top and back of her head, but given the history of questionable stroke, she was admitted to telemetry unit for continuation of care. Physical Exam (per Admitting): VITAL SIGNS: Temperature 36, seems to be afebrile, pulse was 88, blood pressure 136/81, saturation 99% on room air. HEENT: Unremarkable. NECK: Supple. No JVD, no bruit. CHEST: Clear to auscultate bilaterally. HEART: S1, S2 regular. ABDOMEN: Soft, benign, nontender, no organomegaly. Bowel sounds present. EXTREMITIES: Negative for any edema. MUSCULOSKELETAL SYSTEM: Did not show any acute arthritis involving any joint. CENTRAL NERVOUS SYSTEM: She was alert, awake, oriented x3 and no focal sensory and/or motor deficit appreciated. Hospital Course Stroke-like symptoms with left-sided weakness, dysarthria and also visual symptoms, Resolved - most likely Complicated Migraine - A stroke alert was called in upon coming to the Emergency Room. She was evaluated by Dr. Hughes at [facility]. No further recommendation for her symptoms. - MRI Brain: no acute CVA Echo: * No cardiac source of emboli noted. * Injection of contrast documented no interatrial shunt. * The left ventricle is normal in size. * Ejection Fraction = 60-65%. * The right ventricular systolic function is normal. * The left atrial size is normal. * Right atrial size is normal. * No significant valvualr pathology. Carotid US: Mild atherosclerotic plaque with mildly elevated peak systolic velocity within the proximal to mid left internal carotid artery with a normal systolic ratio. This finding could be due to a stenosis of 50-69% or vessel tortuosity. - given Imitrex - headache and other neurologic symptoms resolved - evaluated by Neurologist Dr. Pimentel recommend outpatient ff up in 2 weeks Tylenol PRN - may need CT angio or MRA of the neck to confirm possible L ICA stenosis seen on Carotid US monitor Lipid panel Generalized anxiety disorder with a post-traumatic stress disorder and also adjustment disorder with a depressed mood. - continue similar medications Esophageal reflux. Continue with famotidine. Disposition ff up with PCP in 3-5 days ff up with Neurologist in 2 weeks Total time spent on discharge = 35 minutes This includes examination of the patient, discharge planning, medication reconciliation, and communication with other providers. Discharge Instructions Discharge Instructions Date of Service Nov 19, 2017. Admission Reason for Admission: Migraine Headache, Stroke-Like Symptoms Discharge Discharge Diagnosis / Problem: COMPLICATED MIGRAINE Discharge Goals Goal(s): Diagnostic testing, Therapeutic intervention Activity Recommendations Activity Limitations: as noted below (NO HEAVY EXERTION UNTIL RE-EVALUATED BY PRIMARY CARE PHYSICIAN) Lifting Limitations: until after follow-up appointment Exercise/Sports Limitations: until after follow-up appointment Driving or Machine Use: NO DRIVING UNTIL RE-EVALUATED BY PRIMARY CARE PHYSICIAN . Instructions / Follow-Up Instructions / Follow-Up CALL YOUR PRIMARY CARE PHYSICIAN OR RETURN TO THE ER IMMEDIATELY IF WITH RECURRENCE OR WORSENING OF SYMPTOMS. ENSURE ADEQUATE DAILY FLUID INTAKE. FOLLOW UP WITH DR. SHABAZZ ON THURSDAY NOVEMBER 23, 2017 AT 11:05 AM. FOLLOW UP WITH NEUROLOGIST DR. PIMENTEL IN 2 WEEKS. TEL NO. Current Hospital Diet Patient's current hospital diet: Regular Diet Discharge Diet Recommended Diet: Regular Diet Procedures Procedures Performed: CT HEAD , MRI BRAIN, ECHOCARDIOGRAM, CAROTID ULTRASOUND Pending Studies Studies pending at discharge: no Medical Emergencies . Who to Call and When: Medical Emergencies: If at any time you feel your situation is an emergency, please call 911 immediately. . Non-Emergent Contact Non-Emergency issues call your: Primary Care Provider, Neurologist Call Non-Emergent contact if: you have a fever, your pain is not controlled, your pain is worsening, you have any medication questions . . "Provider Documentation" section prepared by Froy Burroughs. . VTE Core Measure Inpt VTE Proph given/why not?: Unfractionated heparin SQ
[2017-11-19] MEDS ORDERED: CLONIDINE HCL 0.1 MG TAB PO SCH (21:00)
== END 2017-11-19 15:30 | disposition home or self-care (01) ==
LOC: C.EDA 17:53 → C.MED 11-19 00:35 → ENRESERV 11-19 00:54
PROVIDERS: ADMIT Internal Medicine; ATTEND Internal Medicine
DX: G43.109 Migraine with aura, not intractable, without status migrainosus (principal); R53.1 Weakness; R47.81 Slurred speech; J45.909 Unspecified asthma, uncomplicated; F32.9 Major depressive disorder, single episode, unspecified; F41.9 Anxiety disorder, unspecified; F43.21 Adjustment disorder with depressed mood; E78.5 Hyperlipidemia, unspecified; F17.200 Nicotine dependence, unspecified, uncomplicated; I10 Essential (primary) hypertension; F43.10 Post-traumatic stress disorder, unspecified; E66.9 Obesity, unspecified; K21.9 Gastro-esophageal reflux disease without esophagitis; Z90.710 Acquired absence of both cervix and uterus; Z82.49 Family history of ischemic heart disease and other diseases of the circulatory system; Z88.0 Allergy status to penicillin; Z88.2 Allergy status to sulfonamides; Z91.041 Radiographic dye allergy status; Z87.442 Personal history of urinary calculi; Z91.5 Personal history of self-harm; Z98.51 Tubal ligation status; Z90.49 Acquired absence of other specified parts of digestive tract; Z90.89 Acquired absence of other organs; Z86.73 Personal history of transient ischemic attack (TIA), and cerebral infarction without residual deficits; Z83.3 Family history of diabetes mellitus

== ENCOUNTER 2017-11-20 13:33 | Emergency (ER) | payer OTHER ==
[~2017-11-20] VITALS: Ht 165.1 cm; Wt 100.2 kg
[~2017-11-20 13:33] MED LIST changes: +ACET-1047 PO; +CLON1TAB3 PO; +CTP1CL PO; +EFFSR75 PO; +EPP3/2 IM; +FAMO1TAB47 PO; -SODIUM CHLORIDE 0.9% 1000ML 1,000 ML IV SCH; -SPHSL5 SL; -TPM25 PO; +VNTHFA/IN INH
[2017-11-20 13:39] VITALS: BP 151/95; PULSE 97; TEMP 36.8; O2SAT 99; Ht 165.1 cm; Wt 100.2 kg
== END 2017-11-20 15:30 | disposition left against medical advice (07) ==
LOC: C.EDB 13:37
DX: R07.9 Chest pain, unspecified (principal)

== ENCOUNTER 2017-12-10 02:26 | Emergency (ER) | payer OTHER ==
[~2017-12-10] VITALS: Ht 165.1 cm; Wt 99.2 kg
[2017-12-10 02:33] VITALS: TEMP 36.5; Ht 165.1 cm; Wt 99.2 kg
--- NOTE | 2017-12-10 03:11 | EMERGENCY ROOM VISIT NOTE ---
History Report prepared by Ashok: Esequiel Hayes Under the Supervision of: Dr. Sejal Rodriguez D.O. First contact with patient: 02:46 Chief Complaint: MENTAL HEALTH EVALUATION Stated Complaint: DEPRESSION History of Present Illness The patient is a 47 year old female who presents to the Emergency Room with complaints of worsening depressive symptoms that began recently. Patient states that she struggles with depression and anxiety. Patient states that she is suicidal and has a plan. She is unwilling to share that plan with me. Patient states that she has a history of trying to hurt herself by overdosing. She states that she is willing to sign herself in voluntarily for inpatient psychiatric care. She states that she has a history of psychiatric inpatient stays in [place]. Patient denies trying to hurt herself the past couple of days. She states that she is medication compliant. Patient states that she drove herself to the ER tonight. She states that she came tonight because "she was at the end" and felt that everything had been going on long enough. Patient states that she has been struggling with her depression the past couple of months because she is trying to "get her medications straight". She states that Dr. Smith is her psychiatrist. She states she last saw her psychiatrist on October 29. She states that her psychiatrist knows she is struggling with depression. Patient adds that she has intermittent lower abdominal pain. Pertinent past surgical history includes a hysterectomy, appendectomy, colon resection, and cholecystectomy. Pertinent past medical history includes diverticulitis. Patient denies any other known health problems. 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 She denies any recent alcohol or drug use. Patient states that she lives alone. Source of History: patient Onset: Recent Timing: worsening Modifying Factors (Relieving): other (None) Associated Symptoms: + abdominal pain Note: Patient has suicidal ideations. Review of Systems See HPI for pertinent positives & negatives. A total of 10 systems reviewed and were otherwise negative. Past Medical & Surgical Medical Problems: (1) Adjustment disorder (2) Asthma (3) Depression (4) Diverticulosis Colon (W/O Ment Of Hemorrhage) (5) Drug overdose, intentional (6) DWAYNE (generalized anxiety disorder) (7) Gastroparesis (8) HLD (hyperlipidemia) (9) HTN (hypertension) (10) IBS (irritable bowel syndrome) (11) Kidney stone (12) Migraine (13) Migraine headache (14) Postconcussion Syndrome (15) Posttraumatic Stress Disorder (16) Stroke-like symptoms (17) Suicide attempt by drug ingestion (18) Tobacco abuse Surgical Problems: (1) H/O colonoscopy (2) H/O esophagogastroduodenoscopy (3) H/O tubal ligation (4) H/O unilateral oophorectomy (5) History of partial colectomy (6) Hx of appendectomy (7) Hx of tonsillectomy (8) S/P cholecystectomy (9) S/P MARLON (total abdominal hysterectomy) Family History FH: heart disease MOTHER ( from [place] at age 66) BROTHER (details unknown) Gallbladder disease Heart valve abnormality SISTER Hypertension Social History Smoking Status: Current Every Day Smoker Alcohol Use: none Drug Use: none Marital Status: in relationship Housing Status: lives with significant other Occupation Status: employed Current/Historical Medications Scheduled Venlafaxine Hcl (Effexor Extended Rel), 150 MG PO DAILY Venlafaxine Hcl (Effexor Extended Rel), 75 MG PO DAILY Scheduled PRN Albuterol Hfa (Ventolin Hfa), 2 PUFFS INH Q4H PRN for Wheezing Clonazepam (Klonopin), 1 MG PO BID PRN for Anxiety Epinephrine (Epipen 2-Cisco), 0.3 MG IM UD PRN for ALLERGIC REACTION Allergies Coded Allergies: Ibuprofen (Verified Allergy, Severe, SOB-HIVES, 11/04/17) Iodinated Diagnostic Agents (Verified Allergy, Intermediate, HIVES, ) Tramadol (Verified Allergy, Intermediate, HIVES, 11/04/17) Penicillins (Verified Allergy, Mild, ANAPHYLAXIS, 11/04/17) Moxifloxacin (Verified Allergy, Unknown, UNKNOWN, 11/04/17) Sulfa Antibiotics (Verified Allergy, Unknown, unkn, 11/04/17) as a child Haloperidol (Verified Adverse Reaction, Intermediate, "KEEPS ME AWAKE, CAN 'T SLEEP"., 11/04/17) Ketorolac Tromethamine (Verified Adverse Reaction, Intermediate, "TEARS STOMACH UP", 11/04/17) Physical Exam Vital Signs Date Time Temp Pulse Resp B/P (MAP) Pulse Ox O2 Delivery O2 Flow Rate FiO2 12/10/17 10:12 76 20 124/76 96 12/10/17 04:29 85 20 138/90 96 Room Air 12/10/17 02:33 36.5 95 20 142/98 96 Room Air Physical Exam HEENT: Head - normocephalic and atraumatic Pupils are equal, round, and reactive to light. Extraocular eye muscles are intact, and sclera are anicteric. Nose - moist nasal mucosa without discharge. Mouth - moist buccal mucosa. Oropharynx is nonerythematous and there is no tonsillar exudate or edema noted. Neck: Supple; no JVD, nuchal rigidity, cervical lymphadenopathy. Heart: Regular rate and rhythm. There is a normal S1 and S2 with no murmurs, clicks, or gallops appreciated. Lungs: Clear to auscultation bilaterally with no wheezes, rales, or rhonchi. Abdomen: Soft, completely nontender, nondistended, with good bowel sounds. There are no palpable pulsatile masses or hepatosplenomegaly. There is no guarding, rigidity, or rebound noted. Extremities: No evidence of cyanosis, clubbing, or edema. There are easily palpable peripheral pulses. Skin: warm and dry with good turgor and no rashes. Psych: Patient appears depressed, admits to suicidal ideations with a plan but won't share the plan. Medical Decision & Procedures Laboratory Results 12/10/17 03:28 12/10/17 03:28 Test 12/10/17 00:00 12/10/17 03:28 Urine Color YELLOW Urine Appearance CLOUDY (CLEAR) Urine pH 5.5 (4.5-7.5) Urine Specific [place] 1.027 (1.000-1.030) Urine Protein NEG (NEG) Urine Glucose (UA) NEG (NEG) Urine Ketones NEG (NEG) Urine Occult Blood NEG (NEG) Urine Nitrite NEG (NEG) Urine Bilirubin NEG (NEG) Urine Urobilinogen NEG (NEG) Urine Leukocyte Esterase SMALL (NEG) Urine WBC (Auto) >30 /hpf (0-5) Urine RBC (Auto) 10-30 /hpf (0-4) Urine Hyaline Casts (Auto) 0 /lpf (0-5) Urine Epithelial Cells (Auto) >30 /lpf (0-5) Urine Bacteria (Auto) 2+ (NEG) Urine Pathogenic Casts /lpf (0) Urine Test NEG (NEG) Urine Opiates Screen NEG (NEG) Urine Methadone, Qualitative NEG (NEG) Urine Barbiturates NEG (NEG) Urine Phencyclidine (PCP) Level NEG (NEG) Ur Amphetamine/Methamphetamine NEG (NEG) MDMA (Ecstasy) Screen NEG (NEG) Urine Benzodiazepines Screen NEG (NEG) Urine Cocaine Metabolite NEG (NEG) Urine Marijuana (THC) NEG (NEG) Red Blood Count 4.56 M/uL (4.2-5.4) Mean Corpuscular Volume 90.8 fL (80-100) Mean Corpuscular Hemoglobin 29.6 pg (25-34) Mean Corpuscular Hemoglobin Concent 32.6 g/dl (32-36) RDW Standard Deviation 43.2 fL (36.4-46.3) RDW Coefficient of Variation 13.0 % (11.5-14.5) Mean Platelet Volume 9.4 fL (7.4-10.4) Anion Gap 7.0 mmol/L (3-11) Est Creatinine Clear Calc Drug Dose 85.4 ml/min Estimated GFR () 81.8 Estimated GFR (Non- 70.5 BUN/Creatinine Ratio 13.1 (10-20) Calcium Level 9.0 mg/dl (8.5-10.1) Total Bilirubin 0.2 mg/dl (0.2-1) Direct Bilirubin < 0.1 mg/dl (0-0.2) Aspartate Amino Transf (AST/SGOT) 11 U/L (15-37) Alanine Aminotransferase (ALT/SGPT) 27 U/L (12-78) Alkaline Phosphatase 94 U/L (45-117) Total Protein 7.6 gm/dl (6.4-8.2) Albumin 3.5 gm/dl (3.4-5.0) Thyroid Stimulating Hormone (TSH) 2.710 uIu/ml (0.300-4.500) Salicylates Level 3.2 mg/dl (2.8-20) Acetaminophen Level 5 ug/ml (10-30) Ethyl Alcohol mg/dL < 3.0 mg/dl (0-3) Laboratory results per my review. Medications Administered Medications (Trade) Dose Ordered Sig/Lorna Route Start Time Stop Time Status Last Admin Dose Admin Venlafaxine HCl (effeXOR EXTENDED REL CAP) 75 mg QAM PO 12/10/17 09:00 12/10/17 10:52 DC 12/10/17 09:00 75 MG Clonazepam (Klonopin Tab) 1 mg BID PRN PO 12/10/17 09:00 12/10/17 10:52 DC 12/10/17 10:10 1 MG ED Course 0300: Past medical records reviewed. The patient was evaluated in room A8. A complete history and physical exam was performed. Labs were drawn as above. 0450: The patient was felt to be medically cleared. Staff from [facility]. will evaluate the patient for further inpatient psychiatric care. 0630: Patient denies ever saying that she had suicidal ideations and having a plan that she would not share. I reminded her of what she said to myself in the scribe as well as to the triage nurse but she continued to deny ever saying such things. I explained to the patient as did the staff from [address] [place] [address] that this was a red flag considering her situation. I spent a great deal of time talking to the patient and tried to explain to her my perspective on the issue. 0745: Triage nurse partitioned a [facility]. I discussed the case with the oncoming staff from [facility].-Jelani. 0944: Jelani spent some time talking to the patient and spoke with the patient' s friend Trice. Trice is willing to come get her. Patient states that she will stay with her today and that her fiance will be with for until her appointments this week with her therapist and psychiatrist. 1015: The patient was told that she could call can help at any time. She was discharged home. Medical Decision The patient is a 47 year old female who presents to the ED with depressive symptoms. Differential diagnosis includes suicidal ideation, depression, mood disorder, and thought disorder. Lab results show no leukocytosis, stable H&H, normal renal function and glucose , normal LFTs and TSH, negative tox screen, negative alcohol, acetaminophen level of 5, salicylate level of 3.2, negative, urinalysis showed 2+ bacteria, greater than 30 white blood cells, and small leukocyte esterase. This is a 47-year-old female patient presents to the emergency department explaining that she is feeling suicidal with a plan. The patient was not willing to share the plan with me. She was medically cleared and evaluated by staff from [facility]. During their evaluation, the patient denied feeling suicidal and stated that she had never made suicidal statements in the emergency department. I reminded her that when she presented, she told the triage nurse that she was suicidal. She also told me during my initial HPI that she was suicidal and had a plan but was unwilling to share that plan with me. I also reminded her that she told me that the reason she came to the ED was to get help because she was suicidal and "at the end" as she described it. The patient adamantly denies any suicidal ideation at this time. She is looking forward to her appointments this week with her therapist and psychiatrist. She was able to contract for safety. Medication Reconcilliation Current Medication List: was personally reviewed by me Blood Pressure Screening Patient's blood pressure: Elevated blood pressure Blood pressure disposition: Elevated BP felt to be situational Impression Primary Impression: Mood disorder Scribe Attestation The scribe's documentation has been prepared under my direction and personally reviewed by me in its entirety. I confirm that the note above accurately reflects all work, treatment, procedures, and medical decision making performed by me. Departure Information Dispostion Home / Self-Care Referrals No Doctor, Assigned (PCP) Forms HOME CARE DOCUMENTATION FORM, IMPORTANT VISIT INFORMATION Patient Instructions Depression Help Tips, Depression Mind Body, My [facility] Additional Instructions I would like you to be with someone until your follow up with Psychiatry. If you have any further thoughts of suicide, please call
[2017-12-10 03:39] LABS: HEMATOCRIT 41.4 % (37-47); HEMOGLOBIN 13.5 g/dL (12.0-16.0); MEAN CELL VOLUME 90.8 fL (80-100); MEAN CORPUSCULAR HEMOGLOBIN 29.6 pg (25-34); MEAN CORPUSCULAR HGB CONC 32.6 g/dl (32-36); MEAN PLATELET VOLUME 9.4 fL (7.4-10.4); PLATELET COUNT 258 K/uL (130-400); RED CELL DISTRIBUTION WIDTH SD 43.2 fL (36.4-46.3); WHITE BLOOD COUNT 10.32 K/uL (4.8-10.8)
[2017-12-10 03:55] LABS: ALBUMIN 3.5 gm/dl (3.4-5.0); ALT/SGPT 27 U/L (12-78); AST/SGOT 11 U/L (15-37); BLOOD UREA NITROGEN 13 mg/dl (7-18); CARBON DIOXIDE 28 mmol/L (21-32); CREATININE 0.97 mg/dl (0.60-1.20); GLUCOSE 91 mg/dl (70-99); POTASSIUM 3.7 mmol/L (3.5-5.1); SODIUM 139 mmol/L (136-145)
[2017-12-10 04:05] LABS: ALKALINE PHOSPHATASE 94 U/L (45-117); TOTAL PROTEIN 7.6 gm/dl (6.4-8.2)
[2017-12-10] MEDS ORDERED: VENLAFAXINE HCL XR 75 MG CAPXR PO SCH (09:00)
[2017-12-10] MEDS ORDERED: CLONAZEPAM 1 MG TAB PO PRN (09:00)
[2017-12-10 10:12] VITALS: BP 124/76; PULSE 76; O2SAT 96
== END 2017-12-10 10:13 | disposition home or self-care (01) ==
LOC: C.EDB 02:27 → C.EDA 10:13
DX: F32.9 Major depressive disorder, single episode, unspecified (principal); R45.851 Suicidal ideations; R10.30 Lower abdominal pain, unspecified; J45.909 Unspecified asthma, uncomplicated; K57.30 Diverticulosis of large intestine without perforation or abscess without bleeding; K31.84 Gastroparesis; E78.5 Hyperlipidemia, unspecified; I10 Essential (primary) hypertension; K58.9 Irritable bowel syndrome, unspecified; F17.200 Nicotine dependence, unspecified, uncomplicated; Z88.8 Allergy status to other drugs, medicaments and biological substances; Z91.041 Radiographic dye allergy status; Z88.5 Allergy status to narcotic agent; Z88.0 Allergy status to penicillin; Z88.1 Allergy status to other antibiotic agents; Z88.2 Allergy status to sulfonamides; Z88.6 Allergy status to analgesic agent

== ENCOUNTER 2019-07-07 12:53 | Inpatient (IN) ==
--- NOTE | 2019-07-07 13:08 | CT Scan Report ---
CT OF THE HEAD WITHOUT CONTRAST CLINICAL HISTORY: Stroke evaluation COMPARISON STUDY: Head CT August 28, 2018. MRI of the brain November 18, 2017. CT DOSE: 537.48 mGy.cm TECHNIQUE: Helical axial images of the head were obtained without IV contrast. Automated exposure con trol was utilized for the study. A dose lowering technique was utilized adhering to the principles o f ALARA. FINDINGS: No acute intracranial hemorrhage, midline shift or mass effect is present. The ventricular system is unremarkable. The basilar cisterns are patent. No extra-axial collections are present. Ther e are no findings to suggest acute dural sinus thrombosis or acute territorial infarct. No significan t calvarial abnormalities are present. Visualized portions of the sinuses and mastoid air cells are c lear. IMPRESSION: No acute intracranial findings. Electronically signed by: Henry Epstein M.D. 07/07/2019 1:07 PM
[2019-07-07 13:18] LABS: Basophils # (auto) 0.05 K/uL (0-0.2); Basophils % (auto) 0.7 %; Eosinophils # (auto) 0.42 K/uL (0-0.5); Eosinophils % (auto) 5.6 %; Hematocrit (blood only) 41.1 % (37-47); Hemoglobin 13.3 g/dL (12.0-16.0); Immature Granulocytes # (auto) 0.02 K/uL (0.00-0.02); Immature Granulocytes % (auto) 0.3 %; Lymphocytes # (auto) 3.18 K/uL (1.2-3.4); Lymphocytes % (auto) 42.3 %; Mean Corpuscular Hgb Conc 32.4 g/dL (32-36); Mean Corpuscular Volume 90.9 fL (80-100); Mean Platelet Volume 9.8 fL (7.4-10.4); Monocytes % (auto) 5.3 %; Neutrophils # (auto) 3.45 K/uL (1.4-6.5); Neutrophils % (auto) 45.8 %; Platelet Count 255 K/uL (130-400); RDW Coefficient of Variation 13.2 % (11.5-14.5); RDW Standard Deviation 43.6 fL (36.4-46.3); Red Blood Count 4.52 M/uL (4.2-5.4); White Blood Count 7.52 K/uL (4.8-10.8)
[2019-07-07 13:35] LABS: Alanine Aminotransferase 26 U/L (12-78); Albumin Level 3.9 gm/dl (3.4-5.0); Aspartate Aminotransferase 15 U/L (15-37); BUN Creatinine Ratio 10.7 (10-20); Blood Urea Nitrogen 10 mg/dl (7-18); Carbon Dioxide 28 mmol/L (21-32); Chloride 105 mmol/L (98-107); Creatinine Clr Calc Pharmacy 90.4 ml/min; Est GFR (African American) 84.8; Est GFR (Non-African American) 73.2; Glucose 88 mg/dl (70-99); Magnesium 2.1 mg/dl (1.8-2.4); Sodium 142 mmol/L (136-145)
[2019-07-07 13:36] LABS: Partial Thromboplastin Ratio 1.1; Partial Thromboplastin Time 28.7 Seconds (21.0-31.0)
[2019-07-07 13:39] LABS: Alkaline Phosphatase 89 U/L (45-117); Bilirubin,Total 0.2 mg/dl (0.2-1); Globulin 3.9 gm/dl (2.5-4.0); Total Protein 7.8 gm/dl (6.4-8.2); Troponin I < 0.015 ng/ml (0-0.045)
[2019-07-07] MEDS ORDERED: ACETAMINOPHEN 500 MG TAB PO STA (14:34)
--- NOTE | 2019-07-07 14:56 | History & Physical Report ---
Date of Service July 07, 2019 Assessment & Plan (1) TIA (transient ischemic attack): This is a 49-year-old female with a PMH of HLD, mood disorder, fibromyalgia, history of migraines and other medical problems listed below who presents with left facial droop and left-sided weakness starting this morning that have since resolved. -Presented with left-sided facial paresthesias, diplopia, left upper and lower extremity weakness-all of which have since resolved -Rule out CVA: CT head without acute intracranial abnormality. MRI brain with/without contrast, CTA head/neck, echo with bubble study pending -Discussed with Dr. Prince, who would also like full hypercoagulable work-up ord ered -Resume baby aspirin, atorvastatin that patient had self-discontinued -Neuro checks, PT, OT, speech therapy evaluations -Routine neuro consult (2) HLD (hyperlipidemia): Prescribed atorvastatin in the past but has not been taking (3) Depression: Continue Effexor (4) DWAYNE (generalized anxiety disorder): Continue clonazepam PRN (5) Tobacco use disorder: Smokes 1/2 ppd -Discussed cessation DVT Ppx: SQ lovenox Code status: FULL PCP: Heena Dispo: Admitted to telemetry. Plan to return home once medically stable. Patient seen in collaboration with Dr. Lynn. Please see addendum. History of Present Illness Chief Complaint: Left facial droop, left weakness Primary Care Provider: Holland Naik MD This is a 49-year-old female with a PMH of HLD, mood disorder, fibromyalgia, history of migraines and other medical problems listed below who presents with left facial droop and left-sided weakness starting this morning. Patient woke up at 0600 with left sided facial numbness around mouth as well as weakness in left arm and leg. Endorses double vision at that time as well. Denies difficulty with word finding and articulation. [place] like she was dragging left foot. Went to acute care and was brought to ED by ambulance as stroke alert. Was noted to have a left-sided facial droop at this time as well. By the time of arrival in ED, all previous neurological symptoms had resolved. Did endorse a posterior left sided headache that started upon arrival. Not sensitive to light or sound. Denies lightheadedness, confusion, difficulty swallowing or sensory changes in extremities. No fever, chills, chest pain, SOB, nausea, vomiting, abdominal pain, dysuria, diarrhea or constipation. Endorses ? stroke history when 19 that was attributed to being on control. Has history of a stroke work up in October 2017 after presenting with left sided weakness, dysarthria and visual symptoms that was thought to have been a complicated migraine. Was prescribed baby aspirin and lasix in 2017 by PCP but no longer takes these. Also with history of HLD prescribed atorvastatin but has not been taking. Allergies Allergy/AdvReac Type Severity Reaction Status Date / Time ibuprofen Allergy Severe Shortness Verified 07/07/19 13:55 of breath and hives Iodinated Contrast- Oral and Allergy Severe Hives Verified 07/07/19 13:55 IV Dye moxifloxacin Allergy Severe Shortness Verified 07/07/19 13:55 of breath and hives Penicillins Allergy Severe Anaphylaxis Verified 07/07/19 13:55 Sulfa (Sulfonamide Allergy Severe Shortness Verified 07/07/19 13:55 Antibiotics) of breath and hives tramadol Allergy Severe Hives Verified 07/07/19 13:55 dicyclomine [From Bentyl] AdvReac Intermediate Constipatio Verified 07/07/19 13:55 n haloperidol AdvReac Intermediate "KEEPS ME Verified 07/07/19 13:55 AWAKE, CAN'T SLEEP". 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 Beliefs That Will Affect Care: None Current Living Situation: Alone Other Information That Helps Us Care for You: Yes (moving to [place]) Feels Safe at Home: Yes Safety Concerns: Feels Safe At This Time Smoking Status: Current every day smoker Tobacco Type: cigarettes ; Cigarettes Per Day: 10 ; Do You Dip or Chew Tobacco: No ; Second Hand Exposure: No ; Tobacco Cessation Education Requested by Patient: No Hx Alcohol Use: No Hx Substance Use: Yes substance use type: prescription drug Substance Use Type Other:: clonazepam Last Used Substance: Unknown Review of Systems Review of Systems: At least ten systems reviewed and negative except as noted in the HPI. Physical Exam Physical Exam: General Appearance: WD/WN, vitals as above, NAD, sitting up in bed, pleasant, conversing easily Head: normocephalic, atraumatic Eyes: normal inspection, PERRL, conjunctivae normal, anicteric sclerae ENT: external ear and nose normal, oropharynx normal, Neck: trachea midline, no thyromegaly normal visual inspection, + L posterior cervical lymph node palpable, non-tender Respiratory: normal respiratory effort, lungs clear to auscultation, no wheeze, rales, rhonchi. Normal insp/exp effort, no accessory muscle use Cardiovascular: regular rate, rhythm, no murmur, normal peripheral pulses. Vessels: no JVD or carotid bruit Chest: normal inspection of chest Abdomen/GI: normal bowel sounds, soft, nontender, no hepatosplenomegaly Extremities/Musculoskelatal: no cyanosis or clubbing, extremities motor strength 5/5 Neurologic: PERRL, EOMI, accommodation nl, no face palsy, no dysarthria, CN's II-XI intact bilaterally and moves all extremities , no sensory deficit noted, gait intact Psychiatric: A+Ox3, euthymic affect Skin: no rashes, normal color, warm/dry. Left posterior scalp with three erythematous raised lesions, no surrounding edema Results & Data Vital Signs (Past 12 Hours) Vital Signs Pulse Pulse Resp BP BP Pulse Ox 07/07/19 13:36 87 18 148/97 H 100 07/07/19 13:07 100 07/07/19 12:53 84 14 153/95 H 100 Laboratory Results Short CBC 07/07/19 Range/Units 12:35 WBC 7.52 (4.8-10.8) K/uL Hgb 13.3 (12.0-16.0) g/dL Hct 41.1 (37-47) % Plt Count 255 (130-400) K/uL BMP 07/07/19 12:35 Sodium 142 Potassium 4.0 Chloride 105 Carbon Dioxide 28 BUN 10 Creatinine 0.93 Glucose 88 Calcium 9.0 Cardiac Enzymes 07/07/19 Range/Units 12:35 Troponin I < 0.015 (0-0.045) ng/ml Liver Function 07/07/19 Range/Units 12:35 Total Bilirubin 0.2 (0.2-1) mg/dl AST 15 (15-37) U/L ALT 26 (12-78) U/L Alkaline Phosphatase 89 (45-117) U/L Albumin 3.9 (3.4-5.0) gm/dl Diagnostic Findings CT head: IMPRESSION: No acute intracranial findings. ECG Rhythm: normal sinus Change: no significant change Supervising Physician Co-Signing Physician Notes HISTORY: Record reviewed. Patient interviewed and examined in her room. Care coordinated with Stephani Cordova PA-C. Please refer to her documentation for patient's history. 49 YO female. History of apparent stroke or TIA at age of 19 when using oral contraceptives. Stroke-like symptoms in 2018 attributed to complicated migraine. Experienced left facial palsy with paresthesiae, diplopia, and left hemiplegia (upper > lower) this morning. Symptoms associated with left occipital headache (although pain may be secondary to rash on scalp). Left-handed. 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 Symptoms lasted for about 6-8 hours and resolved by the time she arrived to ED. EXAM: General- no distress Lungs- clear to auscultation; no respiratory distress Cardiovascular- RRR; no murmur; no gallop; no JVD; no pretibial edema Abdomen- + bowel sounds, soft, nontender Extremities- no cyanosis; no calf tenderness Neuro- alert, oriented; PERRL, EOMI; no facial palsy; no dysarthria or aphasia; motor upper and lower extremities 5/5; patellar DTR's 1/2 bilat; plantar reflexes downgoing bilat; no difficulty with finger to nose or heel to smith testing Skin- warm & dry; erythematous, tender rash left occipital scalp without vesicles Lymph- few slightly enlarged lymph nodes left lateral neck DATA: CBC, BMP normal. Other lab studies as noted. CT head negative. EKG performed at 13:14 reviewed and demonstrated NSR at 84 / minute, no acute changes. ASSESSMENT AND PLAN: Stroke-like symptoms, resolved. CT negative. Not candidate for thrombolytic therapy because of duration of symptoms and resolution by time of presentation. Possible TIA. Possible hemiplegic migraine. Neuro consulted. Check MRI, MRA, echo, hypercoag workup. Rash left occipital scalp tender and associated with mild cervical adenopathy. Rash does not appear to be H zoster. Rx with topical mupirocin to cover strep and staph. Follow. Please refer to DAHIANA Cordova's documentation for discussion of other issues.
[2019-07-07] MEDS ORDERED: PHARMACIST DISCHARGE MED REC CONSULT PRN (16:40)
[2019-07-07] MEDS ORDERED: POLYETHYLENE (MIRALAX) 17 GM PACK PO PRN (16:40)
[2019-07-07] MEDS ORDERED: ONDANSETRON INJ 2 MG/ML 2 ML VIAL IV PRN (16:40)
--- NOTE | 2019-07-07 17:24 | Emergency Department Note ---
Entered by Toshia Vazquez acting as a scribe for Arnulfo Cotton History of Present Illness General Chief complaint: Stroke Alert Stated complaint: stroke alert Time Seen by Provider: 07/07/19 12:46 Source: patient Mode of arrival: EMS History of Present Illness Onset (ago): hour(s) 7 Location: face, upper extremity, lower extremity and left Pain Consistency: + other (resolving) Associated symptoms: + weakness (left upper and lower extremity weakness) and + other (left sided facial droop) Treatments prior to arrival: none The patient is a 49 year old female who presents to the Emergency Room with complaints of stroke like symptoms, including left sided facial droop and left sided upper and lower extremity weakness. The patient's symptoms first started when she woke up at 06:30 this morning, and she arrived to the ED via EMS at 12:58. The patient has history of suicide attempts by drug ingestion, drug overdose, hypertension, hyperlipidemia, gastroparesis, and migraine. She is on no anticoagulants. She reports smoking half a pack of cigarettes a day, and denies recent drug use. Home Medications Home Medications Medication Instructions Recorded Confirmed Type albuterol sulfate [Ventolin HFA] 2 puff INHALATION Q4H PRN 07/23/18 07/07/19 History clonazepam 1 mg PO BID PRN 07/23/18 07/07/19 History epinephrine [EpiPen 2-Cisco] 0.3 mg IM DIRECTED PRN 07/23/18 07/07/19 History venlafaxine 300 mg PO DAILY 07/23/18 07/07/19 History cholecalciferol (vitamin D3) 1,000 unit PO DAILY 07/07/19 07/07/19 History [Vitamin D3] Allergies Allergy/AdvReac Type Severity Reaction Status Date / Time ibuprofen Allergy Severe Shortness Verified 07/07/19 13:55 of breath and hives Iodinated Contrast- Oral and Allergy Severe Hives Verified 07/07/19 13:55 IV Dye moxifloxacin Allergy Severe Shortness Verified 07/07/19 13:55 of breath and hives Penicillins Allergy Severe Anaphylaxis Verified 07/07/19 13:55 Sulfa (Sulfonamide Allergy Severe Shortness Verified 07/07/19 13:55 Antibiotics) of breath and hives tramadol Allergy Severe Hives Verified 07/07/19 13:55 dicyclomine [From Bentyl] AdvReac Intermediate Constipatio Verified 07/07/19 13:55 n haloperidol AdvReac Intermediate "KEEPS ME Verified 07/07/19 13:55 AWAKE, CAN'T SLEEP". 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 Mancuso 2008 Hx of tonsillectomy (Chronic) S/P MARLON (total abdominal hysterectomy) (Chronic) S/P cholecystectomy (Chronic) Hx of appendectomy (Chronic) H/O esophagogastroduodenoscopy (Chronic) H/O colonoscopy (Chronic) H/O unilateral oophorectomy (Chronic) Family History Father Type 2 diabetes mellitus Mother Myocardial infarction Social History Preferred Language: Yakut Communication Ability: Effective Special Population Paraprofessional Required: No Beliefs That Will Affect Care: None Current Living Situation: Alone Other Information That Helps Us Care for You: Yes (moving to [place]) Feels Safe at Home: Yes Safety Concerns: Feels Safe At This Time Smoking Status: Current every day smoker Tobacco Type: cigarettes ; Cigarettes Per Day: 10 ; Do You Dip or Chew Tobacco: No ; Second Hand Exposure: No ; Tobacco Cessation Education Requested by Patient: No Hx Alcohol Use: No Hx Substance Use: Yes substance use type: prescription drug Substance Use Type Other:: clonazepam Last Used Substance: Unknown Review of Systems See HPI for pertinent positives & negatives. and A total of 10 systems reviewed and were otherwise negative Physical Exam Vital Signs Vital Signs - 24 hr 07/07/19 12:53 07/07/19 13:07 07/07/19 13:36 Sepsis Recent Fever Within 48 Hours No Sepsis New/Unexplained Change in Mental Status No Sepsis Action Taken by Nursing No Action Required Pulse Rate 84 Pulse Rate [Apical] 87 Pulse Rhythm Regular Pulse Rhythm [Apical] Regular Pulse Strength [Apical] Respiratory Rate 14 18 Respiratory Effort / Characteristics Non-Labored Non-Labored Respiratory Depth Normal Normal Respiratory Pattern Regular Regular Blood Pressure 153/95 H Blood Pressure [Right Arm] 148/97 H Blood Pressure Mean 114 Blood Pressure Mean [Right Arm] 114 Blood Pressure Position Sitting Blood Pressure Position [Right Arm] Sitting Pulse Oximetry 100 100 100 Oxygen Delivery Method Room Air Room Air Room Air 07/07/19 15:07 Sepsis Recent Fever Within 48 Hours Sepsis New/Unexplained Change in Mental Status Sepsis Action Taken by Nursing Pulse Rate Pulse Rate [Apical] 74 Pulse Rhythm Pulse Rhythm [Apical] Regular Pulse Strength [Apical] Normal Respiratory Rate 20 Respiratory Effort / Characteristics Non-Labored Spontaneous Respiratory Depth Normal Respiratory Pattern Blood Pressure Blood Pressure [Right Arm] 129/80 Blood Pressure Mean Blood Pressure Mean [Right Arm] 96 Blood Pressure Position Blood Pressure Position [Right Arm] Pulse Oximetry 98 Oxygen Delivery Method Room Air GENERAL: She is oriented to person, place, and time. She appears well-developed and well-nourished. She does not appear distressed. HENT: Exam performed. Head: Normocephalic and atraumatic. Right Ear: External ear normal. No mastoid tenderness. Left Ear: External ear normal. No mastoid tenderness. Mouth/Throat: The oropharynx is clear and moist. No trismus in the jaw. No dental abscesses or uvula swelling. No oropharyngeal exudate or tonsillar abscesses. EYES: Conjunctivae and EOM are normal. Pupils are equal, round, and reactive to light. Right eye exhibits no discharge. Left eye exhibits no discharge. No scleral icterus. NECK: Normal range of motion. Neck supple. No JVD present. No spinous process tenderness present. No carotid bruit present. No rigidity. No tracheal deviation and normal range of motion present. No Brudzinski's sign and no Kernig's sign noted. CV: Normal rate, regular rhythm, normal heart sounds and intact distal pulses. There is no peripheral edema. Palpable radial pulses bue. PULM/CHEST: Effort normal and breath sounds normal. No respiratory distress. No stridor. She has no wheezes. She has no rales. Chest Wall: She exhibits no tenderness. ABD: The abdomen is soft. Bowel sounds are normal. She has no distension. No mass is present. There is no tenderness. There is no rebound, no guarding, no Hendrix's sign and no tenderness at McBurney's point. Rovsig negative MUSC/SKEL: Normal range of motion. There is no peripheral edema, tenderness or deformity. LYMPH: No cervical adenopathy. NEURO: NIHSS: 0. She is alert and oriented to person, place, and time. She has normal strength. No cranial nerve deficit or sensory deficit. Coordination and gait normal. GCS eye subscore is 4. GCS verbal subscore is 5. GCS motor subscore is 6. cerbellar tests wnl. SKIN: Skin is warm and dry. She is not diaphoretic. PSYCH: She has a normal mood and affect. Her behavior is normal. Judgment and thought content normal. Course 1238: I received a call from EMS, and they were concerned of stroke for 49 year old female. Her last known well time was 6:30 am. She had left sided facial droop and left upper and lower extremity weakness. 1258: Past medical records reviewed. The patient has history of suicide attempts by drug ingestion, drug overdose, hypertenstion, hyperlipidemia, gastroparesis, and migraine. She was last seen in ER 12 days ago for abdominal pain. The patient was evaluated in room B01. A complete history and physical exam was performed.Upon arrival, the patient was taken to CAT scan, and her symptoms appear to be resolving per EMS. Patient currently has an NIH stroke scale of 0. She is not a TPA candidate since her symptoms first started when she awoke at 6:30 am and that her NIH stroke scale is 0 at this time. 1416: Vital signs stable. Labs and imaging within normal limits. Patient states she cannot take aspirin. [facility], who agreed to take over care of the patient for further evaluation admitted to Dr. Lynn team. Administered Medications Discontinued Medications Acetaminophen (Tylenol) 1,000 mg PO NOW STA Stop: 07/07/19 14:35 Last Admin: 07/07/19 14:32 Dose: 1,000 mg Documented by: [id number] Medical Decision Making Medical Records Attestation: I reviewed the patient's medical records. Home Medications Current Medication List: was personally reviewed by me Laboratory Data Attestation: I reviewed the patient's lab results. Result diagrams: 07/07/19 12:35 07/07/19 12:35 Lab Results 07/07/19 07/07/19 07/07/19 Range/Units 12:35 12:35 12:35 WBC 7.52 (4.8-10.8) K/uL RBC 4.52 (4.2-5.4) M/uL Hgb 13.3 (12.0-16.0) g/dL Hct 41.1 (37-47) % MCV 90.9 (80-100) fL MCH 29.4 (25-34) pg MCHC 32.4 (32-36) g/dL RDW Std Deviation 43.6 (36.4-46.3) fL RDW Coeff of Liat 13.2 (11.5-14.5) % Plt Count 255 (130-400) K/uL MPV 9.8 (7.4-10.4) fL Immature Gran % (Auto) 0.3 % Neut % (Auto) 45.8 % Lymph % (Auto) 42.3 % Hendricks % (Auto) 5.3 % Eos % (Auto) 5.6 % Baso % (Auto) 0.7 % Immature Gran # (Auto) 0.02 (0.00-0.02) K/uL Neut # (Auto) 3.45 (1.4-6.5) K/uL Lymph # (Auto) 3.18 (1.2-3.4) K/uL Hendricks # (Auto) 0.40 (0.11-0.59) K/uL Eos # (Auto) 0.42 (0-0.5) K/uL Baso # (Auto) 0.05 (0-0.2) K/uL PT 10.0 (9.0-12.0) Seconds INR 1.0 (0.9-1.1) APTT 28.7 (21.0-31.0) Seconds PTT Ratio 1.1 Sodium 142 (136-145) mmol/L Potassium 4.0 (3.5-5.1) mmol/L Chloride 105 (98-107) mmol/L Carbon Dioxide 28 (21-32) mmol/L Anion Gap 9.0 (3-11) BUN 10 (7-18) mg/dl Creatinine 0.93 (0.6-1.2) mg/dl Est Cr Clr Drug Dosing 90.4 ml/min Est GFR ( Amer) 84.8 Est GFR (Non-Af Amer) 73.2 BUN/Creatinine Ratio 10.7 (10-20) Glucose 88 (70-99) mg/dl Calcium 9.0 (8.5-10.1) mg/dl Magnesium 2.1 (1.8-2.4) mg/dl Total Bilirubin 0.2 (0.2-1) mg/dl AST 15 (15-37) U/L ALT 26 (12-78) U/L Alkaline Phosphatase 89 (45-117) U/L Troponin I < 0.015 (0-0.045) ng/ml Total Protein 7.8 (6.4-8.2) gm/dl Albumin 3.9 (3.4-5.0) gm/dl Globulin 3.9 (2.5-4.0) gm/dl Albumin/Globulin Ratio 1.0 (0.9-2) Blood Type Antibody Screen 07/07/19 Range/Units 13:10 WBC (4.8-10.8) K/uL RBC (4.2-5.4) M/uL Hgb (12.0-16.0) g/dL Hct (37-47) % MCV (80-100) fL MCH (25-34) pg MCHC (32-36) g/dL RDW Std Deviation (36.4-46.3) fL RDW Coeff of Liat (11.5-14.5) % Plt Count (130-400) K/uL MPV (7.4-10.4) fL Immature Gran % (Auto) % Neut % (Auto) % Lymph % (Auto) % Hendricks % (Auto) % Eos % (Auto) % Baso % (Auto) % Immature Gran # (Auto) (0.00-0.02) K/uL Neut # (Auto) (1.4-6.5) K/uL Lymph # (Auto) (1.2-3.4) K/uL Hendricks # (Auto) (0.11-0.59) K/uL Eos # (Auto) (0-0.5) K/uL Baso # (Auto) (0-0.2) K/uL PT (9.0-12.0) Seconds INR (0.9-1.1) APTT (21.0-31.0) Seconds PTT Ratio Sodium (136-145) mmol/L Potassium (3.5-5.1) mmol/L Chloride (98-107) mmol/L Carbon Dioxide (21-32) mmol/L Anion Gap (3-11) BUN (7-18) mg/dl Creatinine (0.6-1.2) mg/dl Est Cr Clr Drug Dosing ml/min Est GFR ( Amer) Est GFR (Non-Af Amer) BUN/Creatinine Ratio (10-20) Glucose (70-99) mg/dl Calcium (8.5-10.1) mg/dl Magnesium (1.8-2.4) mg/dl Total Bilirubin (0.2-1) mg/dl AST (15-37) U/L ALT (12-78) U/L Alkaline Phosphatase (45-117) U/L Troponin I (0-0.045) ng/ml Total Protein (6.4-8.2) gm/dl Albumin (3.4-5.0) gm/dl Globulin (2.5-4.0) gm/dl Albumin/Globulin Ratio (0.9-2) Blood Type Cancelled Antibody Screen Cancelled Imaging Data Radiologist's Impression: Radiology results as stated below per my review and the radiologist's interpretation: CT OF THE HEAD WITHOUT CONTRAST CLINICAL HISTORY: Stroke evaluation COMPARISON STUDY: Head CT August 28, 2018. MRI of the brain November 18, 2017. CT DOSE: 537.48 mGy.cm TECHNIQUE: Helical axial images of the head were obtained without IV contrast. Automated exposure control was utilized for the study. A dose lowering technique was utilized adhering to the principles of ALARA. FINDINGS: No acute intracranial hemorrhage, midline shift or mass effect is present. The ventricular system is unremarkable. The basilar cisterns are patent. No extra-axial collections are present. There are no findings to suggest acute dural sinus thrombosis or acute territorial infarct. No significant calvarial abnormalities are present. Visualized portions of the sinuses and mastoid air cells are clear. IMPRESSION: No acute intracranial findings. Electronically signed by: Henry Epstein M.D. 07/07/2019 1:07 PM ECG Data Attestation: I personally reviewed and interpreted this ECG as follows: Indication: weakness Rate (beats per minute): 84 Rhythm: sinus rhythm Findings: + other (PQ, QRS, and QTC intervals within normal limits. ); no ST depression and no ST elevation Blood Pressure Blood Pressure Findings: Elevated blood pressure Blood Pressure Disposition: further management by hospitalist [facility] Narrative 1238: I received a call from EMS, and they were concerned of stroke for 49 year old female. Her last known well time was 6:30 am. She had left sided facial droop and left upper and lower extremity weakness. 1258: Past medical records reviewed. The patient has history of suicide attempts by drug ingestion, drug overdose, hypertenstion, hyperlipidemia, gastroparesis, and migraine. She was last seen in ER 12 days ago for abdominal pain. The patient was evaluated in room B01. A complete history and physical exam was performed.Upon arrival, the patient was taken to CAT scan, and her symptoms appear to be resolving per EMS. Patient currently has an NIH stroke scale of 0. She is not a TPA candidate since her symptoms first started when she awoke at 6:30 am and that her NIH stroke scale is 0 at this time. 1416: Vital signs stable. Labs and imaging within normal limits. Patient states she cannot take aspirin. I spoke with Stephani Cordova [facility] hospitalist, who agreed to take over care of the patient for further evaluation admitted to Dr. Lynn team. Impression & Plan TIA (transient ischemic attack) Discharge Plan Visit Data *Final* Discharge Date/Time: 07/07/19 16:06 Chief Complaint: Stroke Alert Stated Complaint: stroke alert ED Provider: Arnulfo Cotton Discharge Problem: TIA (transient ischemic attack) Patient Disposition: Admitted As Inpatient Discharge Instructions Interventions: ED Discharge Assessment Last Done: 07/07/19 16:06 The scribe's documentation has been prepared under my direction and personally reviewed by me in its entirety. I confirm that the note above accurately reflects all work, treatment, procedures, and medical decision making performed by me.
[2019-07-07] MEDS: OXYCODONE HCL IR 5 MG TAB (IMMEDIATE RELEASE) PO PRN (18:31)
[2019-07-07] MEDS ORDERED: clonazePAM 1 MG TAB PO PRN (19:11)
[2019-07-07] MEDS ORDERED: EPINEPHRINE ADULT AUTO-INJECT 0.3 MG SYR IM PRN (19:11)
[2019-07-07] MEDS ORDERED: ALBUTEROL HFA 8 GM INHALER INH PRN (19:11)
[2019-07-07] MEDS: MUPIROCIN 2% OINT 22 GM TUBE EXT SCH (20:21)
[2019-07-07] MEDS: ATORVASTATIN 40 MG TAB PO SCH (20:21)
[2019-07-07] MEDS: ACETAMINOPHEN 325 MG TAB PO PRN (20:28)
[2019-07-08] MEDS: OXYCODONE HCL IR 5 MG TAB (IMMEDIATE RELEASE) PO PRN ×3 (01:16→14:16)
[2019-07-08 06:21] LABS: Hematocrit (blood only) 40.5 % (37-47); Hemoglobin 12.9 g/dL (12.0-16.0); Mean Corpuscular Hgb Conc 31.9 g/dL (32-36); Mean Corpuscular Volume 92.3 fL (80-100); Mean Platelet Volume 9.4 fL (7.4-10.4); Platelet Count 228 K/uL (130-400); RDW Coefficient of Variation 13.5 % (11.5-14.5); RDW Standard Deviation 45.4 fL (36.4-46.3); Red Blood Count 4.39 M/uL (4.2-5.4)
[2019-07-08 06:48] LABS: BUN Creatinine Ratio 10.6 (10-20); Calcium 9.1 mg/dl (8.5-10.1); Est GFR (African American) 78.7; Est GFR (Non-African American) 67.9; Potassium 4.1 mmol/L (3.5-5.1)
--- NOTE | 2019-07-08 07:02 | Magnetic Resonance Report ---
MR brain wo con HISTORY: Mental status change stroke eval TECHNIQUE: Multiplanar multisequence MRI of the brain was performed without the use of contrast. COMPARISON STUDY: None. FINDINGS: There are no areas of restricted diffusion to suggest acute infarction. The midline structu res are intact. The paranasal sinuses are clear. The mastoid air cells are clear. The ventricles and sulci are within normal limits for age. There is no mass, hematoma, midline shift. The major vascular flow-voids at the skull base are well maintained. IMPRESSION: No acute intracranial abnormality. The above report was generated using voice recognition software. It may contain grammatical, syntax or spelling errors. Electronically signed by: Amrik Schmidt M.D. 07/08/2019 7:01 AM
--- NOTE | 2019-07-08 07:06 | Magnetic Resonance Report ---
MR angio head wo con HISTORY: Mental status change stroke eval TECHNIQUE: 3-D [id number] MRA of the brain was performed without contrast. COMPARISON STUDY: None. FINDINGS: Visualized intracranial internal carotid arteries, distal vertebral arteries, and basilar a rtery are widely patent. There is no significant stenosis, occlusion, or aneurysm seen within the blessing ateral ACAs, MCAs, or signaling project engineer. IMPRESSION: No significant stenosis, occlusion, or aneurysm within the [place]. The above report was generated using voice recognition software. It may contain grammatical, syntax or spelling errors. Electronically signed by: Amrik Schmidt M.D. 07/08/2019 7:04 AM
[2019-07-08 07:14] LABS: Estimated Average Glucose 126 mg/dl
--- NOTE | 2019-07-08 07:27 | Magnetic Resonance Report ---
NECK MRA HISTORY: Stroke like symptoms. Facial droop. TECHNIQUE: [id number] and gadolinium-enhanced MRA of the neck was performed both before and after the intravenous administration of contrast. All measurements were calculated based on NASCET criteri a. COMPARISON STUDY: Head CT 07/07/2019. FINDINGS: The aortic arch and proximal great vessels are widely patent. There is no significant sten osis, occlusion, or dissection identified within the bilateral common carotid, internal carotid, or v ertebral arteries. IMPRESSION: No significant stenosis, occlusion, or dissection identified within the carotid or vertebral arteries . Electronically signed by: Artur Dick M.D. 07/08/2019 7:26 AM
[2019-07-08] MEDS: ACETAMINOPHEN 325 MG TAB PO PRN ×3 (08:11→19:24)
[2019-07-08] MEDS: ASPIRIN 81 MG ECTAB PO SCH (08:11)
[2019-07-08] MEDS: CHOLECALCIFEROL 1,000 UNITS TAB PO SCH (08:12)
[2019-07-08] MEDS: MUPIROCIN 2% OINT 22 GM TUBE EXT SCH ×2 (08:12→21:42)
[2019-07-08] MEDS: VENLAFAXINE HCL XR 150 MG CAPXR PO SCH (08:12)
[2019-07-08] MEDS: ENOXAPARIN INJ 40 MG/0.4 ML SYR SQ SCH (08:13)
--- NOTE | 2019-07-08 12:56 | Neurology Consultation ---
Date of Consultation July 08, 2019 Assessment & Plan (1) TIA (transient ischemic attack): 1. MRI brain- no acute findings 2. MRA head/neck no significant stenosis 3. TTE- no ASD 4. optimize HTN, HLD, LDL <70 5. restart aspirin 81 mg 6. follow with PCP for any HTN, HLD issues- watch for vessel outbreak on scalp if burning persists. 7. hyper coag ordered - will follow for results- outpatient 8. likely complex migraine - similar to event 2018 9. if migraines are more persistence follow with Dr Marisol Pimentel for prophy treatment 10. smoking cessation discussed - she states she is quiting now. 11. if medically stable can discharge to home- no PT/OT speech issues Supervising Physician Co-Signing Physician Notes I have seen and discussed above patient with Dr Leighton Prince, neurology I have seen this woman, examined her, reviewed her imaging studies and basic labs, have reviewed her outpatient visits with Dr. Marisol Pimentel, and have discussed her case with Marisol Guzman PA-C and Mindy Jessica, today. My suspicions are the event that precipitated admission was a migraine very similar to the one that she reported back in October 2017 and perhaps related to what looks like a low-grade scalp infection in terms that this may have been stressful enough to precipitate a migraine she really seems to be bothered by the pain of the occipital swelling and has been for a day or 2 prior to the onset of this issue At this point her exam is normal imaging studies are normal and she is largely resolved her symptoms although she feels still a little "cloudy" mentally She can likely be discharged with the internal medicine group feel she is stable on a single aspirin a day which I think is a reasonable drug in light of her low frequency ocular migraine and her underlying vascular risk factors and on antibiotics and local therapy for the presumptive scalp infection If the headaches become more frequent or the acephalic migraines with visual aura become more frequent she should follow-up with Dr. Marisol Pimentel who has seen her episodically over the past several years and most recently in October 2017 The hypercoagulable work-up that was suggested in fact by Dr. Jimenez has now been completed on an inpatient basis and at some point should be reviewed by her primary care team Currently there is no evidence that this was indeed a non-migrainous vascular event Leighton Prince MD History of Present Illness Reason for Consultation: TIA workup Requesting Physician: Mindy Jessica DO Attending Physician: Mindy Jessica DO History of Present Illness Chantelle is a 49 year old female with a PMH - HLD, mood disorder, fibromyalgia, migraines who presented to the ED with left facial droop and left-sided weakness in the morning when she was getting out of bed. She states the face started first with numbness and she felt her face was drooping, then progressed to left arm weakness and leg weakness which she noted she was dragging her L foot when walking she then had a headache. Hypercoagulable work-up was done and still pending. She states all of the symptoms have resolved but she is having some burning on the left scalp that is on going. She had a similar episode 11/18/17 and the work up was negative. She is a 1/2 ppd smoker. her blood pressure was somewhat elevated with admission. She had no vision changes. denies CP, SOB, abdominal pain, current one sided weakness, numbness tingling, bowel or bladder issues, N, V. Allergies Allergy/AdvReac Type Severity Reaction Status Date / Time ibuprofen Allergy Severe Shortness Verified 07/07/19 13:55 of breath and hives Iodinated Contrast Media Allergy Severe Hives Verified 07/07/19 13:55 moxifloxacin Allergy Severe Shortness Verified 07/07/19 13:55 of breath and hives Penicillins Allergy Severe Anaphylaxis Verified 07/07/19 13:55 Sulfa (Sulfonamide Allergy Severe Shortness Verified 07/07/19 13:55 Antibiotics) of breath and hives tramadol Allergy Severe Hives Verified 07/07/19 13:55 dicyclomine [From Bentyl] AdvReac Intermediate Constipatio Verified 07/07/19 13: 55 n haloperidol AdvReac Intermediate "KEEPS ME Verified 07/07/19 13:55 AWAKE, CAN'T SLEEP". 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 Mancuso 2008 Hx of tonsillectomy (Chronic) S/P MARLON (total abdominal hysterectomy) (Chronic) S/P cholecystectomy (Chronic) Hx of appendectomy (Chronic) H/O esophagogastroduodenoscopy (Chronic) H/O colonoscopy (Chronic) H/O unilateral oophorectomy (Chronic) Family History Father Type 2 diabetes mellitus Mother Myocardial infarction Social History Preferred Language: Malawian Communication Ability: Effective Tile Shader Required: No Beliefs That Will Affect Care: None Current Living Situation: Alone Other Information That Helps Us Care for You: Yes (moving to [place]) Feels Safe at Home: Yes Safety Concerns: Feels Safe At This Time Smoking Status: Current every day smoker Tobacco Type: cigarettes ; Cigarettes Per Day: 10 ; Do You Dip or Chew Tobacco: No ; Second Hand Exposure: No ; Tobacco Cessation Education Requested by Patient: No Hx Alcohol Use: No Hx Substance Use: Yes substance use type: prescription drug Substance Use Type Other:: clonazepam Last Used Substance: Unknown Physical Exam Physical Exam: Physical Exam: Constitutional: appearance over nourished, healthy Ears, Nose, Mouth and Throat: mucous membranes moist, no injection and skin normal, eyes normal Cardiovascular: normal S-1 and S-2 and regular rate and rhythm Respiratory: clear to auscultation (CTA) and no rales, ronchi or wheeze Musculoskeletal: no peripheral edema and good distal pulses Skin: no stigmata of neurocutaneous disease noted and normal and intact, no lesions visualized on left scalp Eyes: extraocular muscles intact (EOMI) and pupils equal, round and reactive to light (PERRL) NEUROLOGIC EXAMINATION: Mental status: Alert and interactive Oriented to full date and location Oriented to person Speech fluent with no evidence of aphasia Cranial Nerves smile eye brow raise symmetric Reflexes: Deep tendon reflexes were symmetrical and graded 2/5. down going toes Sensory: intact to light, cool and vibration Coordination: Romberg absent Gait/Stance: Posture normal. Gait normal: with steady with steps, base, turning, heel and toe walking and tandem gait Motor: Negative for pronator drift of out stretched arms with eyes closed. Strength: biceps triceps hand chief physical therapist 5/5, hip flex 5/5 Results & Data Vital Signs (Past 12 Hours) Vital Signs Temp Pulse Resp BP Pulse Ox 07/08/19 11:32 36.9 C 80 19 137/96 95 07/08/19 07:10 37.1 C 87 17 117/77 97 07/08/19 03:28 37.0 C 83 17 124/75 96 Laboratory Results Abnormal lab results 07/07/19 07/08/19 07/08/19 Range/Units 16:59 06:00 06:00 MCHC 31.9 L (32-36) g/dL Hemoglobin A1c 6.0 H (4.5-5.6) % Triglycerides 313 H (0-150) mg/dl Cholesterol 270 H (0-200) mg/dl Diagnostic Findings CT head- No acute intracranial findings. MRI brain-No acute intracranial abnormality MRI head-No significant stenosis, occlusion, or aneurysm within the pic[place] of [place]ett. MRA neck- No significant stenosis, occlusion, or dissection identified within the carotid or vertebral arteries. TTE- 60-65% EF, no ASD
--- NOTE | 2019-07-08 15:25 | Hospitalist Progress Note ---
Date of Service July 08, 2019 Assessment & Plan (1) TIA (transient ischemic attack): Transient stroke like symptoms that resolved within 24 hours. No findings on imaging. Neurology evaluated her and recommend a baby aspirin moving forward. Etiologies include but not limited to a complicated migraine. (2) HLD (hyperlipidemia): Prescribed atorvastatin in the past but has not been taking as her LDL is 170. We discussed this and she will hold on further Lipitor as she thinks she may have an adverse effect to this, and she will discuss this with her PCP at time of discharge. Will hold Lipitor for now because of this. (3) Depression: Continue Effexor (4) DWAYNE (generalized anxiety disorder): Continue clonazepam PRN (5) Generalized pruritus: Reported recent flea bites. Prefers a non-sedating antihistamine. Will try Claritin. (6) Tobacco use disorder: Smoking cessation recommended. DVT Ppx: SQ lovenox Code status: FULL PCP: [facility] Dispo: Plan to return home once medically stable. Transfer to med/surg Mindy Jessica DO [facility] Hospitalist Subjective 49 yo F presented with temporary numbness of her left midface and a "woozy" feeling in her LUE. Her symptoms were reprted to start when she was cooking at 0630 yesterday morning, and continued until after she was here at around 3-4pm. It is unclear if anything helped the symptoms go away. She has an enlarged and painful hair follicle on the posterior scalp which is causing her discomfort today. She reports that her office was infested wtih fleas and that she has multiple bites all over her legs. She denies any recent tick bites. She has no h/o shingles. She has an open cold sore on the L lip area. She otherwise feels well and denies headache. She has no fevers or chills but states she feels some malaise, like the flu. She did mention a time where she had trouble finding her words and speech difficulties yesterday, however, these fully resolved. Telemetry was reviewed and was unremarkable. Workup for CVA was negative overnight. Review of Systems Review of Systems: All systems reviewed & are unremarkable except as noted in HPI & below Physical Exam Physical Exam: CONSTITUTIONAL: WNWD, vitals as above, generally well- appearing EYES: EOMI bilaterally, PERRL, normal conjunctivae, no scleral icterus ENT: external ear and nose normal, oropharynx clear RESPIRATORY: clear to auscultation bilaterally, no crackles, rales or wheezes, normal respiratory effort CARDIOVASCULAR: regular rate and rhythm, S1 and 2 heard without murmurs, gallops or rubs, no JVD, no peripheral edema, no carotid bruits CHEST: inspection of chest was normal (+pacemaker, +port) GASTROINTESTINAL: normal bowel sounds, soft, nontender, no hepatomegaly, no guarding MUSCULOSKELETAL: strength 5/5 throughout, head is normocephalic and atraumatic, neck supple, normal palpation of chest wall without tenderness SKIN: warm and dry, irritated, erythematous single hair follicle on posterior R scalp. There is no discharge. There is no pain to palpation above the area, but there is pain to palpation below it. NEUROLOGIC: PERRL, EOMI, no facial palsy, no dysarthria. CN 2-12 grossly intact, no sensory deficit, normal cognition, normal speech, no tremor PSYCHIATRIC: alert cooperative and oriented to person, place and time. Results & Data Vital Signs (Past 12 Hours) Vital Signs Temp Pulse Resp BP Pulse Ox 07/08/19 11:32 36.9 C 80 19 137/96 95 07/08/19 07:10 37.1 C 87 17 117/77 97 07/08/19 03:28 37.0 C 83 17 124/75 96 Laboratory Results Short CBC 07/08/19 Range/Units 06:00 WBC 7.30 (4.8-10.8) K/uL Hgb 12.9 (12.0-16.0) g/dL Hct 40.5 (37-47) % Plt Count 228 (130-400) K/uL BMP 07/08/19 06:00 Sodium 144 Potassium 4.1 Chloride 107 Carbon Dioxide 32 BUN 11 Creatinine 0.99 Glucose 92 Calcium 9.1 Medications Administered Current Inpatient Medications Acetaminophen (Tylenol) 650 mg PO Q4H PRN PRN Reason: Pain or Fever Stop: 08/06/19 16:39 Last Admin: 07/08/19 12:20 Dose: 650 mg Documented by: Albuterol (Ventolin Hfa) 2 puffs INH Q4H PRN PRN Reason: Shortness Of Breath Or Wheezing Stop: 08/06/19 19:10 Aspirin (Ecotrin Ectab) 81 mg PO QAM [facility] Stop: 08/07/19 08:59 Last Admin: 07/08/19 08:11 Dose: 81 mg Documented by: Atorvastatin Calcium (Lipitor) 40 mg PO HS [facility] Stop: 08/06/19 20:59 Last Admin: 07/07/19 20:21 Dose: 40 mg Documented by: Clonazepam (Klonopin) 1 mg PO BID PRN PRN Reason: Anxiety Stop: 08/06/19 19:10 Last Admin: 07/08/19 08:11 Dose: 1 mg Documented by: Enoxaparin Sodium (Lovenox) 40 mg SQ Q24H [facility]AJ Stop: 08/07/19 08:59 Last Admin: 07/08/19 08:13 Dose: Not Given Documented by: Epinephrine HCl (Epipen) 0.3 mg IM UD PRN PRN Reason: Allergic Reaction Stop: 08/06/19 19:10 Miscellaneous Information (Pharmacist Discharge Med Rec Consult) 1 ea N/A UD PRN PRN Reason: Consult Stop: 08/06/19 16:39 Mupirocin (Bactroban 2%) 1 appln EXT BID [facility] Stop: 08/06/19 20:59 Last Admin: 07/08/19 08:12 Dose: 1 appln Documented by: Ondansetron HCl (Zofran) 4 mg IV Q6H PRN PRN Reason: Nausea Stop: 08/06/19 16:39 Oxycodone HCl (Roxicodone Immediate Rel) 5 mg PO Q6H PRN PRN Reason: Severe Pain Stop: 07/21/19 18:14 Last Admin: 07/08/19 14:16 Dose: 5 mg Documented by: Polyethylene Glycol (Miralax Powder Packet) 17 gm PO DAILY PRN PRN Reason: Constipation Stop: 08/06/19 16:39 Venlafaxine HCl (Effexor Extended Release) 300 mg PO DAILY [facility] Stop: 08/07/19 08:59 Last Admin: 07/08/19 08:12 Dose: 300 mg Documented by: Vitamin D (Vitamin D3) 1,000 units PO DAILY [facility] Stop: 08/07/19 08:59 Last Admin: 07/08/19 08:12 Dose: 1,000 units Documented by:
[2019-07-08] MEDS: LORATADINE 10 MG TAB PO SCH (16:58)
[2019-07-08 19:55] LABS: Lyme Ab IgG w/WB Rflx Negative (Negative); Lyme Ab IgM w/WB Rflx Negative (Negative)
[2019-07-08] MEDS: ATORVASTATIN 40 MG TAB PO SCH (21:42)
[2019-07-08] MEDS ORDERED: GABAPENTIN 100 MG CAP PO STA (22:14)
[2019-07-09 06:16] LABS: Hematocrit (blood only) 40.5 % (37-47); Hemoglobin 13.1 g/dL (12.0-16.0); Mean Corpuscular Hgb Conc 32.3 g/dL (32-36); Mean Corpuscular Volume 92.3 fL (80-100); Mean Platelet Volume 9.7 fL (7.4-10.4); Platelet Count 238 K/uL (130-400); RDW Coefficient of Variation 13.2 % (11.5-14.5); RDW Standard Deviation 44.8 fL (36.4-46.3); Red Blood Count 4.39 M/uL (4.2-5.4); White Blood Count 7.05 K/uL (4.8-10.8)
[2019-07-09 06:46] LABS: BUN Creatinine Ratio 13.4 (10-20); Calcium 8.9 mg/dl (8.5-10.1); Creatinine Clr Calc Pharmacy 88.6 ml/min; Est GFR (African American) 82.7; Est GFR (Non-African American) 71.3
[2019-07-09] MEDS: ACETAMINOPHEN 325 MG TAB PO PRN (09:08)
[2019-07-09] MEDS: ASPIRIN 81 MG ECTAB PO SCH (09:09)
[2019-07-09] MEDS: LORATADINE 10 MG TAB PO SCH (09:09)
[2019-07-09] MEDS: VENLAFAXINE HCL XR 150 MG CAPXR PO SCH (09:09)
[2019-07-09] MEDS: CHOLECALCIFEROL 1,000 UNITS TAB PO SCH (09:09)
[2019-07-09] MEDS: MUPIROCIN 2% OINT 22 GM TUBE EXT SCH (09:09)
[2019-07-09] MEDS: ENOXAPARIN INJ 40 MG/0.4 ML SYR SQ SCH (09:10)
[2019-07-09] MEDS ORDERED: STROKE PATIENT DISCHARGE STA (14:48)
--- NOTE | 2019-07-09 14:49 | Discharge Summary ---
Date of Service July 09, 2019 Admission HPI Per Admitting Provider This is a 49-year-old female with a PMH of HLD, mood disorder, fibromyalgia, history of migraines and other medical problems listed below who presents with left facial droop and left-sided weakness starting this morning. Patient woke up at 0600 with left sided facial numbness around mouth as well as weakness in left arm and leg. Endorses double vision at that time as well. Denies difficulty with word finding and articulation. Elizabeth like she was dragging left foot. Went to acute care and was brought to ED by ambulance as stroke alert. Was noted to have a left-sided facial droop at this time as well. By the time of arrival in ED, all previous neurological symptoms had resolved. Did endorse a posterior left sided headache that started upon arrival. Not sensitive to light or sound. Denies lightheadedness, confusion, difficulty swallowing or sensory changes in extremities. No fever, chills, chest pain, SOB, nausea, vomiting, abdominal pain, dysuria, diarrhea or constipation. Endorses ? stroke history when 19 that was attributed to being on control. Has history of a stroke work up in October 2017 after presenting with left sided weakness, dysarthria and visual symptoms that was thought to have been a complicated migraine. Was prescribed baby aspirin and lasix in 2017 by PCP but no longer takes these. Also with history of HLD prescribed atorvastatin but has not been taking. Admission Exam Per Admitting Provider General Appearance: WD/WN, vitals as above, NAD, sitting up in bed, pleasant, conversing easily Head: normocephalic, atraumatic Eyes: normal inspection, PERRL, conjunctivae normal, anicteric sclerae ENT: external ear and nose normal, oropharynx normal, Neck: trachea midline, no thyromegaly normal visual inspection, + L posterior cervical lymph node palpable, non-tender Respiratory: normal respiratory effort, lungs clear to auscultation, no wheeze, rales, rhonchi. Normal insp/exp effort, no accessory muscle use Cardiovascular: regular rate, rhythm, no murmur, normal peripheral pulses. Vessels: no JVD or carotid bruit Chest: normal inspection of chest Abdomen/GI: normal bowel sounds, soft, nontender, no hepatosplenomegaly Extremities/Musculoskelatal: no cyanosis or clubbing, extremities motor strength 5/5 Neurologic: PERRL, EOMI, accommodation nl, no face palsy, no dysarthria, CN's II-XI intact bilaterally and moves all extremities , no sensory deficit noted, gait intact Psychiatric: A+Ox3, euthymic affect Skin: no rashes, normal color, warm/dry. Left posterior scalp with three erythematous raised lesions, no surrounding edema Principal Diagnosis TIA Discharge Data Allergies Allergy/AdvReac Type Severity Reaction Status Date / Time ibuprofen Allergy Severe Shortness Verified 07/07/19 13:55 of breath and hives Iodinated Contrast Media Allergy Severe Hives Verified 07/07/19 13:55 moxifloxacin Allergy Severe Shortness Verified 07/07/19 13:55 of breath and hives Penicillins Allergy Severe Anaphylaxis Verified 07/07/19 13:55 Sulfa (Sulfonamide Allergy Severe Shortness Verified 07/07/19 13:55 Antibiotics) of breath and hives tramadol Allergy Severe Hives Verified 07/07/19 13:55 dicyclomine [From Bentyl] AdvReac Intermediate Constipatio Verified 07/07/19 13:55 n haloperidol AdvReac Intermediate "KEEPS ME Verified 07/07/19 13:55 AWAKE, CAN'T SLEEP". ketorolac AdvReac Intermediate "TEARS Verified 07/07/19 13:55 STOMACH UP" Consultations 07/07/19 14:15 ED Decision to Admit Stat 07/07/19 16:40 Consult Case Management - Discharge Planning Routine Consult Neurology Routine Ordered Studies 07/07/19 12:48 CT head/brain wo con Stat 07/08/19 01:07 MR angio neck wo con Routine MR brain wo con Routine 07/08/19 17:15 MR angio head wo con Routine Hospital Course (1) TIA (transient ischemic attack): Transient stroke like symptoms that resolved within 24 hours. No findings on imaging. Head CT was performed revealing no acute intracranial findings. A neck and head MRA revealed no significant stenosis, occlusion, or dissection identified within the carotid or vertebral arteries or the [place] of Jett. A brain MRI revealed no acute intracranial abnormalities. 2D echocardiogram was performed revealing mild concentric left ventricular hypertrophy with an ejection fraction 60 to 65% and no significant valvular heart disease. The intr a-atrial septum was intact with no evidence for an atrial septal defect. There were no arrhythmias detected on telemetry. Neurology evaluated her and recommend a baby aspirin moving forward. Etiologies include but not limited to a complicated migraine. (2) HLD (hyperlipidemia): Prescribed atorvastatin in the past but has not been taking as her LDL is 170. We discussed this and she will hold on further Lipitor as she thinks she may have an adverse effect to this, and she will discuss this with her PCP at time of discharge. Will hold Lipitor for now because of this. (3) Depression: Continue Effexor (4) DWAYNE (generalized anxiety disorder): Continue clonazepam PRN (5) Generalized pruritus: Reported recent flea bites. Prefers a non-sedating antihistamine. Will try Claritin, itching improved. Cont antihistamines at home; reports using fexofenadine. Benadryl is also fine. (6) Tobacco use disorder: Smoking cessation recommended. At time of discharge a eovs-pj-mear examination was performed revealing a hemodynamically stable and afebrile patient with no acute distress. Symptoms have completely resolved and she is feeling well. No neurologic deficits were seen. She was mentating and ambulating at baseline. Heart and lung exam was normal. She was discharged in stable condition with close primary care follow- up. Total Time Total Time Spent Total Time Spent (In Minutes): 60 Total Time Includes: Examination of the Patient, Discharge Planning, Medication Reconciliation, Communication With Other Providers and Other (arranged followup) Discharge Plan Discharge Items Patient Disposition: Home - Self-Care Reason For Visit: TIA WORKUP Discharge Diagnosis: TIA Condition on Discharge: Good Health Concerns: Need to quit smoking Activity: Resume your previous activity Lifting: None Exercise/Sports: Gradually increase as tolerated Driving/Machine Use: No limitations Weightbearing: Full weightbearing Non-emergency contact: Primary Care Provider Call non-emergency contact if: you have any medication questions, your symptoms worsen, your pain is not controlled, your pain is worsening, your pain is unusual for you, your pain is concerning for you and you have a fever Follow-up/Referrals: Holland Naik MD [Primary Care Provider] - Diet: Regular Addtl Attending Provider Instructions: Please take all medications as instructed on discharge list below. You have the following primary care appointment to ensure your symptoms did not return, to discuss the pros and cons of fdc aspirin, and to review the blood work (hypercoagulable panel) that was pending at the time of discharge. 07/12/2019 10:00 AM Holland Naik MD Internal Medicine [facility] Please discuss your intolerance of Lipitor with your primary care physician. There may be an alternative therapeutic option available. It was a pleasure taking care of you! Please call if you have any questions or problems. You can reach a [facility] Hospitalist on duty at [facility] 24 hours a day by calling [phone]. Take care of yourself. Mindy Jessica, [facility] Hospitalist Pending Studies at Discharge: Yes Studies:: Hypercoagulable workup. Stand-Alone Forms: My [facility] Medications and DC Order Prescriptions: New aspirin [Ecotrin Low Strength] 81 mg Tablet,Delayed Release (Dr/Ec) 81 mg PO QAM Qty: 90 RF: 1 Continued clonazepam 1 mg tablet 1 mg PO BID PRN (Reason: Anxiety) RF: 0 venlafaxine 150 mg capsule,extended release 24hr 300 mg PO DAILY RF: 0 epinephrine [EpiPen 2-Cisco] 0.3 mg/0.3 mL Auto-Injector 0.3 mg IM DIRECTED PRN (Reason: Allergic Reaction) RF: 0 albuterol sulfate [Ventolin HFA] 90 mcg/actuation Hfa Aerosol Inhaler 2 puff INHALATION Q4H PRN (Reason: Shortness Of Breath Or Wheezing) RF: 0 cholecalciferol (vitamin D3) [Vitamin D3] 1,000 unit Capsule 1,000 unit PO DAILY RF: 0 Discharge Orders: Discharge Order (Routine); Ordered 07/09/19 Ordered By: Mindy Baker/Other Patient Handouts: A1C, Prediabetes, Diabetes Log Loader Helper Complications, Diabetes Healthy Meals, Diabetes Carbs, Diabetes Exercise Benefits, Diabetes Exercise Get Started, Diabetes Activity Tips Admission Data Admit Date/Time: 07/07/19 15:16 Attending Provider: Mindy Jessica Admit Provider: Leighton Lynn Primary Care Provider: Holland Naik Other Providers: Leighton Lynn ; Leighton Prince
--- NOTE | 2019-07-09 15:32 | Pharmacy Report ---
Pharmacist Stroke Counseling - Date of Service July 09, 2019 - Scope: Pharmacy has been consulted to provide medication discharge counseling for this patient admitted with stroke as per the Pharmacist Discharge Counseling for Stroke Patients Protocol. - Medications on Discharge: Home Medications Medication Instructions Recorded Confirmed albuterol sulfate [Ventolin HFA] 2 puff INHALATION Q4H PRN 07/23/18 07/07/19 clonazepam 1 mg PO BID PRN 07/23/18 07/07/19 epinephrine [EpiPen 2-Cisco] 0.3 mg IM DIRECTED PRN 07/23/18 07/07/19 venlafaxine 300 mg PO DAILY 07/23/18 07/07/19 cholecalciferol (vitamin D3) 1,000 unit PO DAILY 07/07/19 07/07/19 [Vitamin D3] New Rx's Medication Instructions Recorded aspirin [Ecotrin Low Strength] 81 mg PO QAM #90 tab 07/09/19 - Action: The above medications, specifically ones for stroke treatment/prophylaxis, have been reviewed in detail with the patient and/or patient outside sales account representative(s) prior to discharge. This includes indication, common adverse reactions, drug interactions, and medication administration. Medication counseling has been employed using the teach-back method to ensure understanding. - Outcome: The patient and/or patient outside sales account representative(s) have demonstrated understanding of the medications. Please note, they are aware that the pharmacist will call them within 72 hours post-discharge to confirm that the appropriate medications are being taken and answer any further medication related questions the patient might have at that time. Contact information Individual to be contacted: Chantelle Matthews Relationship to patient (if applicable): n\a Phone number: [phone] Best time to call: after 2pm Additional comments: d/w pt new medication: Asa 81mg QD. risk, benefits, ADR. Thank you for allowing pharmacy to be involved in the care of this patient. Please call [phone] or [phone] with any additional questions
--- NOTE | 2019-07-10 13:31 | Pharmacy Report ---
Pharmacist Post D/C Phone Note - Phone Note: Date of phone call: July 10, 2019. Individual with whom pharmacist spoke to: TACO REYES The following questions were reviewed during the phone call with responses listed below each: Can you tell me the medications that you are currently taking as well as when and how you take each medication? -See Table Below When have you missed any doses of your medications? - none What side effects are you having from your medications, specifically, the new medications you were started on? - none What questions do you have about your medications? - none What problems are you having obtaining your medications? - none When is your next appointment with your primary care doctor? - next week Additional comments: - none As per the Pharmacist Discharge Counseling for Stroke Patients Protocol, this phone call has been completed within 72 hours of discharge. Thank you for allowing us to be involved in the care of this patient. Thank you for allowing us to be involved in the care of this patient. - Home Medications: Home Medications Medication Instructions Recorded Confirmed albuterol sulfate [Ventolin HFA] 2 puff INHALATION Q4H PRN 07/23/18 07/07/19 clonazepam 1 mg PO BID PRN 07/23/18 07/07/19 epinephrine [EpiPen 2-Cisco] 0.3 mg IM DIRECTED PRN 07/23/18 07/07/19 venlafaxine 300 mg PO DAILY 07/23/18 07/07/19 cholecalciferol (vitamin D3) 1,000 unit PO DAILY 07/07/19 07/07/19 [Vitamin D3] New Rx's Medication Instructions Recorded aspirin [Ecotrin Low Strength] 81 mg PO QAM #90 tab 07/09/19
== END 2019-07-09 17:31 | disposition home or self-care (01) | DRG 103 ==
LOC: ED 12:53 → SUATTDRO 15:16 → 2E 15:16 → 4W 07-08 19:06

== ENCOUNTER 2020-07-04 14:33 | Inpatient (IN) ==
[2020-07-04] MEDS ORDERED: HYDROmorphone INJ 1 MG/ML SYRINGE IV STA ×2 (15:28→16:59)
[2020-07-04] MEDS ORDERED: ONDANSETRON INJ 2 MG/ML 2 ML VIAL IV STA (15:28)
[2020-07-04] MEDS ORDERED: SODIUM CHLORIDE 0.9% 1000ML 1,000 ML IV SCH (15:30)
--- NOTE | 2020-07-04 15:35 | Emergency Department Note ---
History of Present Illness General Chief complaint: Abdominal Pain Stated complaint: LLQ ABD PAIN Time Seen by Provider: 07/04/20 15:18 History of Present Illness Maximum Pain Intensity: 7 This is a 50-year-old female that presents to the emergency department via private vehicle with complaints of "left lower quadrant abdominal pain". She has a history of diverticulitis, ovarian cyst, kidney stones and colon resection secondary to diverticulitis in the past. She was doing well up until about 3 AM today when she awoke with sudden onset left lower quadrant abdominal pain that radiates to the left flank. It is mildly better with rest and is worse with movement. She also notes diarrhea for the past month but has seen her GI specialist and at this time is scheduled for colonoscopy. Tylenol also seems to help with her symptoms mildly and also her low-grade fever of 99 to 1 F. She is felt chilled all day. No chest pain or shortness of breath. No loss of taste or smell. No blood in the urine or stool. Home Medications Home Medications Medication Instructions Recorded Confirmed Type albuterol sulfate [Ventolin HFA] 2 puff INHALATION Q4H PRN 07/23/18 07/04/20 History clonazepam 1 mg PO BID PRN 07/23/18 07/04/20 History epinephrine [EpiPen 2-Cisco] 0.3 mg IM DIRECTED PRN 07/23/18 07/04/20 History venlafaxine 300 mg PO QAM 07/23/18 07/04/20 History Lactobacillus acidophilus 1 tab PO DAILY 12/22/19 07/04/20 History [Acidophilus] fexofenadine 180 mg PO DAILY 07/04/20 07/04/20 History omeprazole 20 mg PO DAILY 07/04/20 07/04/20 History Allergies Allergy/AdvReac Type Severity Reaction Status Date / Time ibuprofen Allergy Severe Shortness Verified 07/04/20 18:14 of breath and hives Iodinated Contrast Media Allergy Severe Hives Verified 07/04/20 18:14 moxifloxacin Allergy Severe Shortness Verified 07/04/20 18:14 of breath and hives Penicillins Allergy Severe Anaphylaxis Verified 07/04/20 18:14 Sulfa (Sulfonamide Allergy Severe Shortness Verified 07/04/20 18:14 Antibiotics) of breath and hives tramadol Allergy Severe Hives Verified 07/04/20 18:14 aspirin Allergy Unknown Unknown Verified 07/04/20 18:14 dicyclomine [From Bentyl] AdvReac Intermediate Constipatio Verified 07/04/20 18:15 n haloperidol AdvReac Intermediate "KEEPS ME Verified 02/18/20 15:43 AWAKE, CAN'T SLEEP". ketorolac AdvReac Intermediate "TEARS Verified 07/04/20 18:15 STOMACH UP" prochlorperazine AdvReac MOTOR Unverified 07/04/20 18:19 RESTLESSNESS Past Med/Surg History Medical History Asthma Depression Facial pain DWAYNE (generalized anxiety disorder) Gastroparesis Generalized pruritus GERD (gastroesophageal reflux disease) History of Clostridium difficile colitis HLD (hyperlipidemia) IBS (irritable bowel syndrome) Migraine Osteomyelitis Pancreatitis Squamous cell carcinoma of left shoulder Suicide attempt by drug ingestion On 04/21/16 10:30 Helene Rene wrote "03/22/2016" TIA (transient ischemic attack) Surgical History H/O colonoscopy H/O esophagogastroduodenoscopy H/O tubal ligation H/O unilateral oophorectomy History of colectomy due to diverticulitis 2008, Dr. Mancuso 2008 Hx of appendectomy Hx of tonsillectomy S/P cholecystectomy S/P MARLON (total abdominal hysterectomy) Family History Father Type 2 diabetes mellitus Mother Myocardial infarction Social History Smoking Status: Current every day smoker Tobacco Type: Cigarettes Cigarettes Per Day: 10; Second Hand Exposure: No; Do You Dip or Chew Tobacco: No; Tobacco Cessation Education Requested by Patient: No Hx Alcohol Use: No Hx Substance Use: Yes Last Used Substance: Unknown Substance Use Type Other:: clonazepam Preferred Language: Kazakh Communication Ability: Effective Graduate Teaching Assistant Required: No Beliefs That Will Affect Care: None Current Living Situation: Alone Other Information That Helps Us Care for You: No Feels Safe at Home: Yes Safety Concerns: Feels Safe At This Time Review of Systems A total of 10 systems reviewed and were otherwise negative Physical Exam Vital Signs Vital Signs - 24 hr 07/04/20 14:40 07/04/20 15:55 07/04/20 15:56 Temperature 36.6 C Temperature Source Oral Pulse Rate 100 H 97 H Pulse Rate [Finger] 105 H Pulse Rate from SpO2 Sensor 96 H Respiratory Rate 16 20 17 Blood Pressure 162/97 H 176/124 H Blood Pressure [Left Arm] 176/124 H Blood Pressure Mean 118 132 Blood Pressure Mean [Left Arm] 141 Pulse Oximetry 98 97 96 Oxygen Delivery Method Room Air Sepsis Recent Fever Within 48 Hours No Sepsis New/Unexplained Change in Mental Status No Sepsis Action Taken by Nursing No Action Required 07/04/20 16:59 07/04/20 17:00 07/04/20 17:10 Temperature Temperature Source Pulse Rate 96 H 97 H 103 H Pulse Rate [Finger] Pulse Rate from SpO2 Sensor 96 H 97 H 103 H Respiratory Rate 17 14 19 Blood Pressure 164/112 H Blood Pressure [Left Arm] Blood Pressure Mean 126 Blood Pressure Mean [Left Arm] Pulse Oximetry 96 97 98 Oxygen Delivery Method Sepsis Recent Fever Within 48 Hours Sepsis New/Unexplained Change in Mental Status Sepsis Action Taken by Nursing 07/04/20 17:20 07/04/20 17:30 07/04/20 17:40 Temperature Temperature Source Pulse Rate 100 H 97 H 99 H Pulse Rate [Finger] Pulse Rate from SpO2 Sensor 100 H 98 H 100 H Respiratory Rate 26 H 18 17 Blood Pressure Blood Pressure [Left Arm] Blood Pressure Mean Blood Pressure Mean [Left Arm] Pulse Oximetry 96 95 95 Oxygen Delivery Method Sepsis Recent Fever Within 48 Hours Sepsis New/Unexplained Change in Mental Status Sepsis Action Taken by Nursing 07/04/20 17:50 07/04/20 18:00 Temperature Temperature Source Pulse Rate 90 99 H Pulse Rate [Finger] Pulse Rate from SpO2 Sensor 91 H 99 H Respiratory Rate 14 20 Blood Pressure 165/97 H Blood Pressure [Left Arm] Blood Pressure Mean 112 Blood Pressure Mean [Left Arm] Pulse Oximetry 95 95 Oxygen Delivery Method Sepsis Recent Fever Within 48 Hours Sepsis New/Unexplained Change in Mental Status Sepsis Action Taken by Nursing VITAL SIGNS - Vital signs and nursing notes were reviewed. Stable and afebrile. GENERAL -50-year-old male appearing his stated age who is in no acute distress. Communicates well with provider and answers questions appropriately. SKIN - Without rashes. No meningeal or petechial rash. HEAD - NC/AT. EYES - PERRL with EOMI bilaterally. Sclera anicteric. EARS - No deformities of external structures noted on gross examination b ilaterally. NOSE - Midline and without cyanosis. No epistaxis or purulent drainage noted. MOUTH/OROPHARYNX - Without perioral cyanosis. NECK - Neck with FROM. No nuchal rigidity. LUNGS - Chest wall symmetric without accessory muscle use, intercostals retractions, or central cyanosis. Normal vesicular breath sounds CTA B/L. No wheezes, rales, or rhonchi appreciated. CARDIAC - RRR with S1/S2. No murmur, rubs, or gallops appreciated. ABDOMEN - Abdominal contour normal without pulsations or visible masses. BS normoactive all four quadrants. Left lower quadrant abdominal tenderness palpation. The abdomen is soft and nonrigid. No palpable masses, hepatosplenomegaly, or ascites noted. EXTREMITIES - No clubbing or peripheral cyanosis. +5/5 strength noted in UE/LE bilaterally. NEUROLOGIC - Cranial nerves II through XII grossly intact. PSYCH - A&Ox3 and cooperates fully with examiner. Pt is very pleasant and interacts well with examiner. Course Administered Medications Oxycodone HCl (Oxycodone Hcl Ir 5 Mg Tab (Immediate Release)) 5 mg PO Q4H PRN PRN Reason: Pain Stop: 07/18/20 19:03 Last Admin: 07/04/20 19:39 Dose: 5 mg Documented by: [id number] Discontinued Medications Hydromorphone HCl (Hydromorphone Inj 1 Mg/Ml Syringe) 1 mg IV NOW STA Stop: 07/04/20 15:29 Last Admin: 07/04/20 15:53 Dose: 1 mg Documented by: [id number] Hydromorphone HCl (Hydromorphone Inj 1 Mg/Ml Syringe) 1 mg IV NOW STA Stop: 07/04/20 17:00 Last Admin: 07/04/20 17:08 Dose: 1 mg Documented by: [id number] Hydromorphone HCl (Hydromorphone Inj 0.5 Mg/0.5 Ml Syr) 0.5 mg IV NOW STA Stop: 07/04/20 18:22 Last Admin: 07/04/20 18:44 Dose: 0.5 mg Documented by: [id number] Sodium Chloride (Nss 1000ml) 1,000 mls @ 999 mls/hr IV .Q1H1M NIRAJ Stop: 07/04/20 16:30 Last Infusion: 07/04/20 17:09 Dose: 0 mls/hr Documented by: [id number] Admin: 07/04/20 15:53 Dose: 999 mls/hr Documented by: [id number] Ciprofloxacin (Cipro / D5w) 400 mg in 200 mls @ 100 mls/hr IV NOW STA; Protocol Stop: 07/04/20 19:30 Last Admin: 07/04/20 17:56 Dose: 100 mls/hr Documented by: [id number] Metronidazole (Flagyl) 500 mg in 100 mls @ 100 mls/hr IV NOW STA Stop: 07/04/20 18:30 Last Infusion: 07/04/20 19:41 Dose: 0 mls/hr Documented by: [id number] Admin: 07/04/20 17:58 Dose: 100 mls/hr Documented by: [id number] Ondansetron HCl (Ondansetron Inj 2 Mg/Ml 2 Ml Vial) 4 mg IV NOW STA Stop: 07/04/20 15:29 Last Admin: 07/04/20 15:53 Dose: 4 mg Documented by: [id number] Medical Decision Making Laboratory Data Result diagrams: 07/04/20 15:38 07/04/20 15:38 Lab Results 07/04/20 07/04/20 07/04/20 Range/Units 15:38 15:38 15:38 WBC 14.34 H (4.8-10.8) K/uL RBC 4.59 (4.2-5.4) M/uL Hgb 13.9 (12.0-16.0) g/dL Hct 42.2 (37-47) % MCV 91.9 (80-100) fL MCH 30.3 (25-34) pg MCHC 32.9 (32-36) g/dL RDW Std Deviation 44.4 (36.4-46.3) fL RDW Coeff of Liat 13.3 (11.5-14.5) % Plt Count 292 (130-400) K/uL MPV 9.2 (7.4-10.4) fL Immature Gran % (Auto) 0.3 % Neut % (Auto) 67.2 % Lymph % (Auto) 23.2 % Harmon % (Auto) 6.8 % Eos % (Auto) 2.3 % Baso % (Auto) 0.2 % Neut # (Auto) 9.64 H (1.4-6.5) K/uL Lymph # (Auto) 3.33 (1.2-3.4) K/uL Harmon # (Auto) 0.97 H (0.11-0.59) K/uL Eos # (Auto) 0.33 (0-0.5) K/uL Baso # (Auto) 0.03 (0-0.2) K/uL Immature Gran # (Auto) 0.04 H (0.00-0.02) K/uL Sodium 139 (136-145) mmol/L Potassium 3.7 (3.5-5.1) mmol/L Chloride 105 (98-107) mmol/L Carbon Dioxide 26 (21-32) mmol/L Anion Gap 8.0 (3-11) BUN 7 (7-18) mg/dl Creatinine 0.91 (0.6-1.2) mg/dl Est Cr Clr Drug Dosing 90.3 ml/min Est GFR ( Amer) 86.5 Est GFR (Non-Af Amer) 74.6 BUN/Creatinine Ratio 7.6 L (10-20) Glucose 96 (70-99) mg/dl Calcium 9.5 (8.5-10.1) mg/dl Magnesium 2.1 (1.8-2.4) mg/dl Total Bilirubin 0.3 (0.2-1) mg/dl AST 13 L (15-37) U/L ALT 25 (12-78) U/L Alkaline Phosphatase 95 (45-117) U/L Total Protein 8.3 H (6.4-8.2) gm/dl Albumin 3.7 (3.4-5.0) gm/dl Globulin 4.6 H (2.5-4.0) gm/dl Albumin/Globulin Ratio 0.8 L (0.9-2) Lipase 92 (73-393) U/L Urine Color Yellow Urine Appearance Clear (Clear) Urine pH 6.5 (4.5-7.5) Ur Specific [place] 1.006 (1.000-1.030) Urine Protein Negative (Negative) Urine Glucose (UA) Negative (Negative) Urine Ketones Negative (Negative) Urine Blood Negative (Negative) Urine Nitrite Negative (Negative) Urine Bilirubin Negative (Negative) Urine Urobilinogen Negative (Negative) Ur Leukocyte Esterase Negative (Negative) Imaging Data Radiologist's Impression: CT SCAN OF THE ABDOMEN AND PELVIS WITHOUT CONTRAST CLINICAL HISTORY: Left lower quadrant abdominal pain COMPARISON STUDY: 12/24/2019 TECHNIQUE: CT scan of the abdomen and pelvis was performed from the lung bases to the proximal femurs. Images are reviewed in the axial, sagittal, and coronal planes. IV contrast was not administered for this examination. A dose lowering technique was utilized adhering to the principles of ALARA. CT DOSE: 1495.46 mGy.cm FINDINGS: Lower chest: There is minimal mosaic attenuation of the lower lobes. There are no significant pleural effusions Liver: The unenhanced liver is normal in size, contour, and attenuation. There is no intrahepatic biliary ductal dilatation. Gallbladder: Surgically absent Spleen: Normal in size and attenuation. Pancreas: Unremarkable. Adrenal glands: Unremarkable. Kidneys: There are small bilateral renal calculi. There is no hydronephrosis. No ureteral or bladder calculi are visualized. Bowel: There are no transition zones to indicate bowel obstruction. There are postsurgical changes involving the sigmoid colon. There is colonic diverticulosi s. There is colonic wall thickening and infiltration of pericolonic fat involving the proximal descending colon consistent with acute diverticulitis. Peritoneum: There is no intraperitoneal free air or abdominal ascites. Vasculature: The abdominal aorta is normal in course and caliber. Adenopathy: None. Pelvic viscera: The uterus is surgically absent. Skeletal structures: No destructive osseous lesions are seen. IMPRESSION: 1. No evidence of bowel obstruction. No evidence of free air 2. Acute diverticulitis involving the proximal descending colon 3. Bilateral nephrolithiasis. No ureteral or bladder calculi identified ACT 112: Negative or not required by law. Electronically signed by: Sp García M.D. 07/04/2020 4:56 PM [facility] Narrative Patient was seen and evaluated as above in room B11 Review was performed of nursing notes and vital signs. I did review pertinent previous visits and patient history. After obtaining a thorough history and physical examination the above work up was performed. She presents to us today with left lower quadrant abdominal pain. She is tender in the left lower quadrant on examination. CT sc an was obtained and reveals acute diverticulitis of the proximal descending colon. Moderate leukocytosis 14.34. No anemia. No emergent metabolic disturbance. Urinalysis negative. Patient has required several rounds of pain medication here. She was hydrated with normal saline. Benefit versus risk of inpatient versus outpatient management discussed with the patient and through shared decision making at this time agree upon inpatient management. This is secondary to her diverticulitis with associated elevated heart rate, level of pain and past medical history. Case discussed with the attending and the hospitalist. Please refer to further documentation regarding her stay. In the evaluation and treatment of this patient, the following differential diagnoses were considered: ASC, [place], Pneumonia, GERD, Cholecystitis, Ascending Cholangitis, Cholydocholithiasis, diverticulitis, renal calculi, bowel Obstruction, PE, Amongst Others. Impression & Plan Diverticulitis, Abdominal pain, acute, left lower quadrant Discharge Plan Visit Data Chief Complaint: Abdominal Pain Stated Complaint: LLQ ABD PAIN ED Provider: Arnulfo Cotton ED Midlevel Provider: Lb Coker Discharge Problem: Diverticulitis, Abdominal pain, acute, left lower quadrant Patient Disposition: Admitted As Inpatient Condition: Good Discharge Instructions Interventions: ED Discharge Assessment Last Done: 07/04/20 18:40
[2020-07-04 15:46] LABS: Basophils # (auto) 0.03 K/uL (0-0.2); Basophils % (auto) 0.2 %; Eosinophils # (auto) 0.33 K/uL (0-0.5); Eosinophils % (auto) 2.3 %; Hematocrit (blood only) 42.2 % (37-47); Hemoglobin 13.9 g/dL (12.0-16.0); Immature Granulocytes # (auto) 0.04 K/uL (0.00-0.02); Immature Granulocytes % (auto) 0.3 %; Lymphocytes # (auto) 3.33 K/uL (1.2-3.4); Lymphocytes % (auto) 23.2 %; Mean Corpuscular Hemoglobin 30.3 pg (25-34); Mean Corpuscular Hgb Conc 32.9 g/dL (32-36); Mean Corpuscular Volume 91.9 fL (80-100); Mean Platelet Volume 9.2 fL (7.4-10.4); Monocytes # (auto) 0.97 K/uL (0.11-0.59); Monocytes % (auto) 6.8 %; Neutrophils # (auto) 9.64 K/uL (1.4-6.5); Neutrophils % (auto) 67.2 %; Platelet Count 292 K/uL (130-400); RDW Coefficient of Variation 13.3 % (11.5-14.5); RDW Standard Deviation 44.4 fL (36.4-46.3); Red Blood Count 4.59 M/uL (4.2-5.4); White Blood Count 14.34 K/uL (4.8-10.8)
[2020-07-04 15:47] LABS: Appearance Urine Clear (Clear); Bilirubin Urine Negative (Negative); Blood Urine Negative (Negative); Color Urine Yellow; Glucose Urine UA Negative (Negative); Ketones Urine Negative (Negative); Leukocyte Esterase Urine Negative (Negative); Nitrite Urine Negative (Negative); Protein Urine Negative (Negative); Specific Gravity Urine 1.006 (1.000-1.030); Urobilinogen Urine Negative (Negative); pH Urine 6.5 (4.5-7.5)
[2020-07-04 16:02] LABS: Albumin Level 3.7 gm/dl (3.4-5.0); BUN Creatinine Ratio 7.6 (10-20); Calcium 9.5 mg/dl (8.5-10.1); Creatinine Clr Calc Pharmacy 90.3 ml/min; Est GFR (African American) 86.5; Est GFR (Non-African American) 74.6; Magnesium 2.1 mg/dl (1.8-2.4); Potassium 3.7 mmol/L (3.5-5.1)
[2020-07-04 16:05] LABS: Albumin Globulin Ratio 0.8 (0.9-2); Bilirubin,Total 0.3 mg/dl (0.2-1); Globulin 4.6 gm/dl (2.5-4.0); Total Protein 8.3 gm/dl (6.4-8.2)
--- NOTE | 2020-07-04 16:57 | CT Scan Report ---
CT SCAN OF THE ABDOMEN AND PELVIS WITHOUT CONTRAST CLINICAL HISTORY: Left lower quadrant abdominal pain COMPARISON STUDY: 12/24/2019 TECHNIQUE: CT scan of the abdomen and pelvis was performed from the lung bases to the proximal femurs . Images are reviewed in the axial, sagittal, and coronal planes. IV contrast was not administered fo r this examination. A dose lowering technique was utilized adhering to the principles of ALARA. CT DOSE: 1495.46 mGy.cm FINDINGS: Lower chest: There is minimal mosaic attenuation of the lower lobes. There are no significant pleural effusions Liver: The unenhanced liver is normal in size, contour, and attenuation. There is no intrahepatic blessing iary ductal dilatation. Gallbladder: Surgically absent Spleen: Normal in size and attenuation. Pancreas: Unremarkable. Adrenal glands: Unremarkable. Kidneys: There are small bilateral renal calculi. There is no hydronephrosis. No ureteral or bladder calculi are visualized. Bowel: There are no transition zones to indicate bowel obstruction. There are postsurgical changes in volving the sigmoid colon. There is colonic diverticulosis. There is colonic wall thickening and infi ltration of pericolonic fat involving the proximal descending colon consistent with acute diverticuli tis. Peritoneum: There is no intraperitoneal free air or abdominal ascites. Vasculature: The abdominal aorta is normal in course and caliber. Adenopathy: None. Pelvic viscera: The uterus is surgically absent. Skeletal structures: No destructive osseous lesions are seen. IMPRESSION: 1. No evidence of bowel obstruction. No evidence of free air 2. Acute diverticulitis involving the proximal descending colon 3. Bilateral nephrolithiasis. No ureteral or bladder calculi identified ACT 112: Negative or not required by law. Electronically signed by: Sp García M.D. 07/04/2020 4:56 PM
[2020-07-04] MEDS ORDERED: CIPROFLOXACIN / D5W 400 MG/200 ML BAG IV STA (17:31)
[2020-07-04] MEDS ORDERED: metroNIDAZOLE 500 MG/100 ML BAG IV STA (17:31)
[2020-07-04] MEDS ORDERED: HYDROmorphone INJ 0.5 MG/0.5 ML SYR IV PRN (17:32)
[2020-07-04] MEDS ORDERED: HYDROmorphone INJ 0.5 MG/0.5 ML SYR IV STA (18:21)
--- NOTE | 2020-07-04 18:59 | History & Physical Report ---
Date of Service July 04, 2020 Assessment & Plan (1) Acute diverticulitis: 50-year-old female with history of diverticulitis, status post colonic resection, Gastritis, migraine, GERD, dyslipidemia, TIA, presenting with left upper quadrant pain since 3 AM today. Acute diverticulitis History of diverticulitis, status post colonic resection CT abdomen pelvis: 1. No evidence of bowel obstruction. No evidence of free air 2. Acute diverticulitis involving the proximal descending colon 3. Bilateral nephrolithiasis. No ureteral or bladder calculi identified Start ciprofloxacin 40 mg IV every 12 hours and Flagyl 5 mg every 8 hours Verified with patient, she has had ciprofloxacin in the past with no problems, allergic or adverse reactions Probiotics for history of C. difficile colitis D5 NSS +20 of K, n.p.o. except meds and sips of water Dilaudid and oxycodone as needed for pain, patient develops hives with NSAIDs, already taken total of 4000 mg of Tylenol today General surgery consult, routine History of gastritis Protonix IV daily History of DWAYNE, Continue Effexor Monitor QT interval History of TIA Hold off on aspirin DVT prophylaxis SCDs for now in light of diverticulitis Disposition Anticipated discharge home medically stable Plan of care discussed in detail and at length with patient All questions were answered She is understanding, agreeable, comfortable plan of care History of Present Illness 50-year-old female with history of diverticulitis status post colonic resection, Gastritis, migraine, generalized anxiety disorder, TIA, dyslipidemia, presenting with left abdominal pain since 3 AM today. Per patient she has had colonic resection performed about 10 years ago for recurrent diverticulitis. Since that time patient had occasional acute diverticulitis resolved with antibiotics. This morning around 3 AM, patient was awakened by left abdominal pain radiating to the left flank. Patient also had chills but no nausea or vomiting, chest pain, shortness of breath, headache or dizziness. Patient took at least 4 1000 mg Tylenol tablets with no improvement, prompting consult to the ER At the ER, patient's CT scan of the abdomen pelvis revealed acute diverticulitis in the area of descending colon. Patient was given Cipro plus Flagyl, Dilaudid IV. On exam, the patient is sitting up in bed, comfortable, not in distress. Patient reports pain is still 6-7 out of 10 but no nausea, chills at the time of my exam. Denies any other active symptoms on my exam Primary Care Provider: Holland Naik MD Allergies Allergy/AdvReac Type Severity Reaction Status Date / Time ibuprofen Allergy Severe Shortness Verified 07/04/20 18:14 of breath and hives Iodinated Contrast Media Allergy Severe Hives Verified 07/04/20 18:14 moxifloxacin Allergy Severe Shortness Verified 07/04/20 18:14 of breath and hives Penicillins Allergy Severe Anaphylaxis Verified 07/04/20 18:14 Sulfa (Sulfonamide Allergy Severe Shortness Verified 07/04/20 18:14 Antibiotics) of breath and hives tramadol Allergy Severe Hives Verified 07/04/20 18:14 aspirin Allergy Unknown Unknown Verified 07/04/20 18:14 dicyclomine [From Bentyl] AdvReac Intermediate Constipatio Verified 07/04/20 18:15 n haloperidol AdvReac Intermediate "KEEPS ME Verified 02/18/20 15:43 AWAKE, CAN'T SLEEP". ketorolac AdvReac Intermediate "TEARS Verified 07/04/20 18:15 STOMACH UP" prochlorperazine AdvReac MOTOR Unverified 07/04/20 18:19 RESTLESSNESS Home Medications Home Medications Medication Instructions Recorded Confirmed Type albuterol sulfate [Ventolin HFA] 2 puff INHALATION Q4H PRN 07/23/18 07/04/20 History clonazepam 1 mg PO BID PRN 07/23/18 07/04/20 History epinephrine [EpiPen 2-Cisco] 0.3 mg IM DIRECTED PRN 07/23/18 07/04/20 History venlafaxine 300 mg PO QAM 07/23/18 07/04/20 History Lactobacillus acidophilus 1 tab PO DAILY 12/22/19 07/04/20 History [Acidophilus] fexofenadine 180 mg PO DAILY 07/04/20 07/04/20 History omeprazole 20 mg PO DAILY 07/04/20 07/04/20 History Past Med/Surg History Medical History Asthma Depression Facial pain DWAYNE (generalized anxiety disorder) Gastroparesis Generalized pruritus GERD (gastroesophageal reflux disease) History of Clostridium difficile colitis HLD (hyperlipidemia) IBS (irritable bowel syndrome) Migraine Osteomyelitis Pancreatitis Squamous cell carcinoma of left shoulder Suicide attempt by drug ingestion On 04/21/16 10:30 Helene Rene wrote "03/22/2016" TIA (transient ischemic attack) Surgical History H/O colonoscopy H/O esophagogastroduodenoscopy H/O tubal ligation H/O unilateral oophorectomy History of colectomy due to diverticulitis 2008, Dr. Mancuso 2008 Hx of appendectomy Hx of tonsillectomy S/P cholecystectomy S/P MARLON (total abdominal hysterectomy) Family History Father Type 2 diabetes mellitus Mother Myocardial infarction Social History Smoking Status: Current every day smoker Tobacco Type: Cigarettes Cigarettes Per Day: 10; Second Hand Exposure: No; Hx Alcohol Use: No Hx Substance Use: Yes Last Used Substance: Unknown Substance Use Type Other:: clonazepam Preferred Language: Greenlandic Communication Ability: Effective Leather Stamper Required: No Beliefs That Will Affect Care: None Current Living Situation: Alone Feels Safe at Home: Yes Review of Systems Review of Systems: All systems reviewed & are unremarkable except as noted in HPI & below Physical Exam Physical Exam: General- oriented x 3, not in distress, speaks in sentences with no effort or accessory muscle use Head- atraumatic Eyes- PERRL, EOMI, anicteric ENT- oropharynx clear Neck- supple, no JVD, no adenopathy, no thyromegaly; carotids +2/2, no bruits appreciated Lungs- clear to auscultation bilaterally, no rales/wheezes Heart- normal rate, regular rhythm; no murmur, no gallop, no rub appreciated Abdomen- normal bowel sounds, nondistended, soft, positive moderate tenderness in the left lower quadrant, no masses or hepatosplenomegaly Extremities- no pretibial edema, no calf tenderness; peripheral pulses intact Neuro- alert, oriented x 3; CN 2-12 grossly intact; motor 5/5 bilaterally;sensation 100% on all extremities; no other gross focal neurologic deficits Skin- warm & dry Results & Data Results & Data ([facility]) Vital Signs (Past 12 Hours) Vital Signs Temp Pulse Pulse Resp BP BP Pulse Ox 07/04/20 18:00 99 H 20 165/97 H 95 07/04/20 17:50 90 14 95 07/04/20 17:40 99 H 17 95 07/04/20 17:30 97 H 18 95 07/04/20 17:20 100 H 26 H 96 07/04/20 17:10 103 H 19 98 07/04/20 17:00 97 H 14 164/112 H 97 07/04/20 16:59 96 H 17 96 07/04/20 15:56 97 H 17 176/124 H 96 07/04/20 15:55 105 H 20 176/124 H 97 07/04/20 14:40 36.6 C 100 H 16 162/97 H 98 Laboratory Results Laboratory Results - last 24 hr 07/04/20 07/04/20 07/04/20 15:38 15:38 15:38 WBC 14.34 H RBC 4.59 Hgb 13.9 Hct 42.2 MCV 91.9 MCH 30.3 MCHC 32.9 RDW Std Deviation 44.4 RDW Coeff of Liat 13.3 Plt Count 292 MPV 9.2 Immature Gran % (Auto) 0.3 Neut % (Auto) 67.2 Lymph % (Auto) 23.2 [place] % (Auto) 6.8 Eos % (Auto) 2.3 Baso % (Auto) 0.2 Neut # (Auto) 9.64 H Lymph # (Auto) 3.33 [place] # (Auto) 0.97 H Eos # (Auto) 0.33 Baso # (Auto) 0.03 Immature Gran # (Auto) 0.04 H Sodium 139 Potassium 3.7 Chloride 105 Carbon Dioxide 26 Anion Gap 8.0 BUN 7 Creatinine 0.91 Est Cr Clr Drug Dosing 90.3 Est GFR ( Amer) 86.5 Est GFR (Non-Af Amer) 74.6 BUN/Creatinine Ratio 7.6 L Glucose 96 Calcium 9.5 Magnesium 2.1 Total Bilirubin 0.3 AST 13 L ALT 25 Alkaline Phosphatase 95 Total Protein 8.3 H Albumin 3.7 Globulin 4.6 H Albumin/Globulin Ratio 0.8 L Lipase 92 Urine Color Yellow Urine Appearance Clear Urine pH 6.5 Ur Specific [place] 1.006 Urine Protein Negative Urine Glucose (UA) Negative Urine Ketones Negative Urine Blood Negative Urine Nitrite Negative Urine Bilirubin Negative Urine Urobilinogen Negative Ur Leukocyte Esterase Negative
[2020-07-04] MEDS ORDERED: clonazePAM 1 MG TAB PO PRN (19:04)
[2020-07-04] MEDS ORDERED: ALBUTEROL HFA 8 GM INHALER INH PRN (19:04)
[2020-07-04] MEDS ORDERED: EPINEPHRINE ADULT AUTO-INJECT 0.3 MG SYR IM PRN (19:04)
[2020-07-04] MEDS: OXYCODONE HCL IR 5 MG TAB (IMMEDIATE RELEASE) PO PRN (19:39)
[2020-07-04] MEDS: LACTOBACILLUS ACIDOPHILUS (FLORANEX) TAB PO SCH (20:42)
[2020-07-04] MEDS: D5NSS + 20MEQ KCL 20 MEQ/1,000 ML BAG IV SCH (20:42)
[2020-07-04] MEDS: HYDROmorphone INJ 1 MG/ML SYRINGE IV PRN (22:01)
[2020-07-05] MEDS: OXYCODONE HCL IR 5 MG TAB (IMMEDIATE RELEASE) PO PRN ×4 (00:20→22:04)
[2020-07-05] MEDS: HYDROmorphone INJ 1 MG/ML SYRINGE IV PRN ×5 (02:07→19:50)
[2020-07-05] MEDS: metroNIDAZOLE 500 MG/100 ML BAG IV SCH ×3 (02:08→17:19)
[2020-07-05 05:58] LABS: Basophils # (auto) 0.02 K/uL (0-0.2); Basophils % (auto) 0.2 %; Eosinophils # (auto) 0.39 K/uL (0-0.5); Eosinophils % (auto) 4.2 %; Hematocrit (blood only) 38.6 % (37-47); Hemoglobin 12.4 g/dL (12.0-16.0); Immature Granulocytes # (auto) 0.02 K/uL (0.00-0.02); Immature Granulocytes % (auto) 0.2 %; Lymphocytes # (auto) 2.78 K/uL (1.2-3.4); Lymphocytes % (auto) 29.8 %; Mean Corpuscular Hgb Conc 32.1 g/dL (32-36); Mean Corpuscular Volume 93.2 fL (80-100); Mean Platelet Volume 9.4 fL (7.4-10.4); Monocytes # (auto) 0.76 K/uL (0.11-0.59); Monocytes % (auto) 8.1 %; Neutrophils # (auto) 5.37 K/uL (1.4-6.5); Neutrophils % (auto) 57.5 %; Platelet Count 247 K/uL (130-400); RDW Coefficient of Variation 13.5 % (11.5-14.5); RDW Standard Deviation 46.1 fL (36.4-46.3); Red Blood Count 4.14 M/uL (4.2-5.4); White Blood Count 9.34 K/uL (4.8-10.8)
[2020-07-05] MEDS: CIPROFLOXACIN / D5W 400 MG/200 ML BAG IV SCH ×2 (06:05→17:19)
[2020-07-05 06:11] LABS: BUN Creatinine Ratio 5.7 (10-20); Calcium 8.6 mg/dl (8.5-10.1); Creatinine Clr Calc Pharmacy 93.9 ml/min; Est GFR (Non-African American) 77.7; Potassium 4.2 mmol/L (3.5-5.1)
[2020-07-05] MEDS: FEXOFENADINE HCL 180 MG TAB PO SCH (07:58)
[2020-07-05] MEDS: VENLAFAXINE HCL XR 150 MG CAPXR PO SCH (07:58)
[2020-07-05] MEDS: LACTOBACILLUS ACIDOPHILUS (FLORANEX) TAB PO SCH ×4 (07:59→19:51)
[2020-07-05] MEDS: D5NSS + 20MEQ KCL 20 MEQ/1,000 ML BAG IV SCH ×2 (09:12→19:51)
[2020-07-05] MEDS: PANTOprazole 40 MG in SYRINGE 0 ML IV SCH (10:25)
--- NOTE | 2020-07-05 16:42 | Hospitalist Progress Note ---
Date of Service July 05, 2020 Assessment & Plan (1) Acute diverticulitis: 50-year-old female with history of diverticulitis, status post colonic resection, Gastritis, migraine, GERD, dyslipidemia, TIA, presenting with left upper quadrant pain since 3 AM today. Acute diverticulitis History of diverticulitis, status post colonic resection CT abdomen pelvis: 1. No evidence of bowel obstruction. No evidence of free air 2. Acute diverticulitis involving the proximal descending colon . Bilateral nephrolithiasis. No ureteral or bladder calculi identified Continue ciprofloxacin 40 mg IV every 12 hours and Flagyl 5 mg every 8 hours Verified with patient, she has had ciprofloxacin in the past with no problems, allergic or adverse reactions Probiotics for history of C. difficile colitis D5 NSS +20 of K, n.p.o. except meds and sips of water Dilaudid and oxycodone as needed for pain, patient develops hives with NSAIDs General surgery consult, routine History of gastritis Protonix IV daily History of DWAYNE, Continue Effexor Monitor QT interval History of TIA Hold off on aspirin DVT prophylaxis SCDs for now in light of diverticulitis Disposition Anticipated discharge home when medically stable Plan of care discussed in detail with patient All questions were answered She is understanding, agreeable, comfortable plan of care Admission and Anticipated Discharge Date Admission Date: July 04, 2020 Subjective ff up for acute diverticulitis seen resting in bed, comfortable states she feels slightly better than yesterday pain somewhat improved, well controlled by pain meds (+) flatus, no BMs no nausea/vomiting, chills, SOB denies other symptoms Review of Systems Review of Systems: All systems reviewed & are unremarkable except as noted in HPI & below Physical Exam Physical Exam: General- oriented x 3, not in distress, speaks in sentences with no effort or accessory muscle use Eyes- anicteric Neck- no JVD Lungs- clear BS BL no rales no wheezing Heart- normal rate, regular rhythm; no murmurs Abdomen- normal bowel sounds, nondistended, soft, mild tenderness on all quadrants but moderate on the LUQ pain Extremities- no pretibial edema, no calf tenderness Neuro- alert, oriented x 3; no gross focal neurologic deficits Skin- warm & dry Results & Data Results & Data ([facility]) Vital Signs (Past 12 Hours) Vital Signs Temp Pulse Resp BP Pulse Ox 07/05/20 15:20 37.5 C 95 H 16 161/92 H 90 07/05/20 07:54 37.1 C 96 H 18 139/83 90 Laboratory Results Laboratory Results - last 24 hr 07/05/20 07/05/20 05:34 05:34 WBC 9.34 RBC 4.14 L Hgb 12.4 Hct 38.6 MCV 93.2 MCH 30.0 MCHC 32.1 RDW Std Deviation 46.1 RDW Coeff of Liat 13.5 Plt Count 247 MPV 9.4 Immature Gran % (Auto) 0.2 Neut % (Auto) 57.5 Lymph % (Auto) 29.8 [place] % (Auto) 8.1 Eos % (Auto) 4.2 Baso % (Auto) 0.2 Neut # (Auto) 5.37 Lymph # (Auto) 2.78 [place] # (Auto) 0.76 H Eos # (Auto) 0.39 Baso # (Auto) 0.02 Immature Gran # (Auto) 0.02 Sodium 141 Potassium 4.2 Chloride 109 H Carbon Dioxide 28 Anion Gap 5.0 BUN 5 L Creatinine 0.88 Est Cr Clr Drug Dosing 93.9 Est GFR ( Amer) 90.0 Est GFR (Non-Af Amer) 77.7 BUN/Creatinine Ratio 5.7 L Glucose 112 H Calcium 8.6
--- NOTE | 2020-07-05 17:47 | Surgery Consultation ---
Date of Consultation July 05, 2020 Assessment & Plan (1) Acute diverticulitis: This patient has an episode of uncomplicated acute diverticulitis of the proximal descending colon. I agree with conservative measures with IV antibiotics and bowel rest. There is no evidence of peritonitis. There is no indication for immediate surgical intervention. Following resolution of this she will eventually need a colonoscopy. She may also need to discuss her recurrent diverticulitis with colorectal surgery for evaluation for possible re- resection. History of Present Illness Reason for Consultation: Diverticulitis Requesting Physician: Froy Burroughs MD Attending Physician: Froy Burroughs MD History of Present Illness I have been asked by Dr. Burroughs to see this 50-year-old female who presented to the emergency room with a complaint of pain in the left iliac fossa area. The patient states that the pain began early Monday morning. When she went to bed Monday night she had no pain. The pain is located in the left iliac fossa area and is stayed there although she now has some discomfort in the right upper side radiating around to her back there. She had low-grade fever. She had nausea but no vomiting. She has had the constipation form of irritable bowel syndrome for a long time but over the last month has had more diarrhea. There have been normal bowel movements. She had a sigmoid colectomy in 2008 for recurrent diverticulitis. She had done well for about 8 years but about 3 years ago she began to get episodes of diverticulitis on the left side again. She has had about 5 episodes prior to this 1. She has had multiple previous abdominal procedures. Her last colonoscopy was about 5 years ago. Allergies Allergy/AdvReac Type Severity Reaction Status Date / Time ibuprofen Allergy Severe Shortness Verified 07/04/20 18:14 of breath and hives Iodinated Contrast Media Allergy Severe Hives Verified 07/04/20 18:14 moxifloxacin Allergy Severe Shortness Verified 07/04/20 18:14 of breath and hives Penicillins Allergy Severe Anaphylaxis Verified 07/04/20 18:14 Sulfa (Sulfonamide Allergy Severe Shortness Verified 07/04/20 18:14 Antibiotics) of breath and hives tramadol Allergy Severe Hives Verified 07/04/20 18:14 aspirin Allergy Unknown Unknown Verified 07/04/20 18:14 dicyclomine [From Bentyl] AdvReac Intermediate Constipatio Verified 07/04/20 18:15 n haloperidol AdvReac Intermediate "KEEPS ME Verified 02/18/20 15:43 AWAKE, CAN'T SLEEP". ketorolac AdvReac Intermediate "TEARS Verified 07/04/20 18:15 STOMACH UP" prochlorperazine AdvReac MOTOR Unverified 07/04/20 18:19 RESTLESSNESS Home Medications Home Medications Medication Instructions Recorded Confirmed Type albuterol sulfate [Ventolin HFA] 2 puff INHALATION Q4H PRN 07/23/18 07/04/20 History clonazepam 1 mg PO BID PRN 07/23/18 07/04/20 History epinephrine [EpiPen 2-Cisco] 0.3 mg IM DIRECTED PRN 07/23/18 07/04/20 History venlafaxine 300 mg PO QAM 07/23/18 07/04/20 History Lactobacillus acidophilus 1 tab PO DAILY 12/22/19 07/04/20 History [Acidophilus] fexofenadine 180 mg PO DAILY 07/04/20 07/04/20 History omeprazole 20 mg PO DAILY 07/04/20 07/04/20 History Patient History Medical History Asthma Depression Facial pain DWAYNE (generalized anxiety disorder) Gastroparesis Generalized pruritus GERD (gastroesophageal reflux disease) History of Clostridium difficile colitis HLD (hyperlipidemia) IBS (irritable bowel syndrome) Migraine Osteomyelitis Pancreatitis Squamous cell carcinoma of left shoulder Suicide attempt by drug ingestion On 04/21/16 10:30 Helene eRne wrote "03/22/2016" TIA (transient ischemic attack) Surgical History H/O colonoscopy H/O esophagogastroduodenoscopy H/O tubal ligation H/O unilateral oophorectomy History of colectomy due to diverticulitis 2008, Dr. Mancuso 2008 Hx of appendectomy Hx of tonsillectomy S/P cholecystectomy S/P MARLON (total abdominal hysterectomy) Family History Father Type 2 diabetes mellitus Mother Myocardial infarction Social History Smoking Status: Current every day smoker Tobacco Type: Cigarettes Cigarettes Per Day: 10; Second Hand Exposure: No; Do You Dip or Chew Tobacco: No; Tobacco Cessation Education Requested by Patient: No Hx Alcohol Use: No Hx Substance Use: Yes Last Used Substance: Unknown Substance Use Type Other:: clonazepam Preferred Language: Indian Communication Ability: Effective [employer]ons Required: No Beliefs That Will Affect Care: None Current Living Situation: Alone Other Information That Helps Us Care for You: No Feels Safe at Home: Yes Safety Concerns: Feels Safe At This Time Physical Exam Constitutional: no acute distress Respiratory: normal respiratory effort, lungs clear to auscultation Cardiovascular: Rate/Rhythm: regular rate and regular rhythm Gastrointestinal (Abdomen): Inspection/Auscultation: abdomen normal to inspection and normal bowel sounds; abdomen not distended Percussion/Palpation: + abdomen tender (Mild tenderness to moderate palpation in the left iliac fossa area) and abdomen soft Skin: no rashes, warm and dry Lymphatic: no cervical lymphadenopathy Results & Data ([facility]) Vital Signs (Past 12 Hours) Vital Signs Temp Pulse Resp BP Pulse Ox 07/05/20 15:20 37.5 C 95 H 16 161/92 H 90 07/05/20 07:54 37.1 C 96 H 18 139/83 90 Laboratory Results 07/05/20 07/05/20 Range/Units 05:34 05:34 WBC 9.34 (4.8-10.8) K/uL RBC 4.14 L (4.2-5.4) M/uL Hgb 12.4 (12.0-16.0) g/dL Hct 38.6 (37-47) % MCV 93.2 (80-100) fL MCH 30.0 (25-34) pg MCHC 32.1 (32-36) g/dL RDW Std Deviation 46.1 (36.4-46.3) fL RDW Coeff of Liat 13.5 (11.5-14.5) % Plt Count 247 (130-400) K/uL MPV 9.4 (7.4-10.4) fL Immature Gran % (Auto) 0.2 % Neut % (Auto) 57.5 % Lymph % (Auto) 29.8 % [place] % (Auto) 8.1 % Eos % (Auto) 4.2 % Baso % (Auto) 0.2 % Neut # (Auto) 5.37 (1.4-6.5) K/uL Lymph # (Auto) 2.78 (1.2-3.4) K/uL [place] # (Auto) 0.76 H (0.11-0.59) K/uL Eos # (Auto) 0.39 (0-0.5) K/uL Baso # (Auto) 0.02 (0-0.2) K/uL Immature Gran # (Auto) 0.02 (0.00-0.02) K/uL Sodium 141 (136-145) mmol/L Potassium 4.2 (3.5-5.1) mmol/L Chloride 109 H (98-107) mmol/L Carbon Dioxide 28 (21-32) mmol/L Anion Gap 5.0 (3-11) BUN 5 L (7-18) mg/dl Creatinine 0.88 (0.6-1.2) mg/dl Est Cr Clr Drug Dosing 93.9 ml/min Est GFR ( Amer) 90.0 Est GFR (Non-Af Amer) 77.7 BUN/Creatinine Ratio 5.7 L (10-20) Glucose 112 H (70-99) mg/dl Calcium 8.6 (8.5-10.1) mg/dl Diagnostic Findings CT SCAN OF THE ABDOMEN AND PELVIS WITHOUT CONTRAST CLINICAL HISTORY: Left lower quadrant abdominal pain COMPARISON STUDY: 12/24/2019 TECHNIQUE: CT scan of the abdomen and pelvis was performed from the lung bases to the proximal femurs. Images are reviewed in the axial, sagittal, and coronal planes. IV contrast was not administered for this examination. A dose lowering technique was utilized adhering to the principles of ALARA. CT DOSE: 1495.46 mGy.cm FINDINGS: Lower chest: There is minimal mosaic attenuation of the lower lobes. There are no significant pleural effusions Liver: The unenhanced liver is normal in size, contour, and attenuation. There is no intrahepatic biliary ductal dilatation. Gallbladder: Surgically absent Spleen: Normal in size and attenuation. Pancreas: Unremarkable. Adrenal glands: Unremarkable. Kidneys: There are small bilateral renal calculi. There is no hydronephrosis. No ureteral or bladder calculi are visualized. Bowel: There are no transition zones to indicate bowel obstruction. There are postsurgical changes involving the sigmoid colon. There is colonic diverticulosis. There is colonic wall thickening and infiltration of pericolonic fat involving the proximal descending colon consistent with acute diverticulitis. Peritoneum: There is no intraperitoneal free air or abdominal ascites. Vasculature: The abdominal aorta is normal in course and caliber. Adenopathy: None. Pelvic viscera: The uterus is surgically absent. Skeletal structures: No destructive osseous lesions are seen. IMPRESSION: 1. No evidence of bowel obstruction. No evidence of free air 2. Acute diverticulitis involving the proximal descending colon 3. Bilateral nephrolithiasis. No ureteral or bladder calculi identified
[2020-07-06] MEDS: HYDROmorphone INJ 1 MG/ML SYRINGE IV PRN ×5 (00:05→20:02)
[2020-07-06] MEDS: metroNIDAZOLE 500 MG/100 ML BAG IV SCH ×3 (02:50→17:28)
[2020-07-06] MEDS: CIPROFLOXACIN / D5W 400 MG/200 ML BAG IV SCH ×2 (05:47→17:28)
[2020-07-06 05:52] LABS: Basophils # (auto) 0.04 K/uL (0-0.2); Basophils % (auto) 0.5 %; Eosinophils # (auto) 0.47 K/uL (0-0.5); Eosinophils % (auto) 5.5 %; Hematocrit (blood only) 38.6 % (37-47); Hemoglobin 12.3 g/dL (12.0-16.0); Immature Granulocytes # (auto) 0.02 K/uL (0.00-0.02); Immature Granulocytes % (auto) 0.2 %; Lymphocytes # (auto) 3.51 K/uL (1.2-3.4); Lymphocytes % (auto) 41.3 %; Mean Corpuscular Hemoglobin 29.6 pg (25-34); Mean Corpuscular Hgb Conc 31.9 g/dL (32-36); Mean Platelet Volume 9.7 fL (7.4-10.4); Monocytes # (auto) 0.71 K/uL (0.11-0.59); Monocytes % (auto) 8.4 %; Neutrophils # (auto) 3.74 K/uL (1.4-6.5); Neutrophils % (auto) 44.1 %; Platelet Count 261 K/uL (130-400); RDW Coefficient of Variation 13.2 % (11.5-14.5); RDW Standard Deviation 44.8 fL (36.4-46.3); Red Blood Count 4.15 M/uL (4.2-5.4); White Blood Count 8.49 K/uL (4.8-10.8)
[2020-07-06 06:19] LABS: BUN Creatinine Ratio 6.7 (10-20); Calcium 9.3 mg/dl (8.5-10.1); Creatinine Clr Calc Pharmacy 107.4 ml/min; Est GFR (African American) 105.8; Est GFR (Non-African American) 91.3; Potassium 4.6 mmol/L (3.5-5.1)
[2020-07-06 07:16] LABS: Alanine Aminotransferase 38 U/L (12-78); Albumin Level 3.1 gm/dl (3.4-5.0); Alkaline Phosphatase 79 U/L (45-117); Aspartate Aminotransferase 25 U/L (15-37); Bilirubin Direct < 0.1 mg/dl (0-0.2); Bilirubin,Total 0.3 mg/dl (0.2-1); Lipase 83 U/L (73-393); Total Protein 7.3 gm/dl (6.4-8.2)
[2020-07-06] MEDS: OXYCODONE HCL IR 5 MG TAB (IMMEDIATE RELEASE) PO PRN ×4 (07:45→22:31)
--- NOTE | 2020-07-06 08:07 | CT Scan Report ---
CT SCAN OF THE ABDOMEN AND PELVIS WITHOUT CONTRAST CLINICAL HISTORY: Right-sided abdominal pain COMPARISON STUDY: 07/04/2020 TECHNIQUE: CT scan of the abdomen and pelvis was performed from the lung bases to the proximal femurs . Images are reviewed in the axial, sagittal, and coronal planes. IV contrast was not administered fo r this examination. A dose lowering technique was utilized adhering to the principles of ALARA. CT DOSE: 1277.99 mGy.cm FINDINGS: Lower chest: There are minor basilar atelectatic changes. There is slight mosaic attenuation of the l ower lobes. Liver: There is hepatic steatosis. No focal masses are visualized in this noncontrast study Gallbladder: Surgically absent Spleen: Normal in size and attenuation. Pancreas: Unremarkable. Adrenal glands: Unremarkable. Kidneys: There are bilateral nonobstructing renal calculi. No ureteral or bladder calculi are visuali zed Bowel: There are no transition zones indicate bowel obstruction. By history the appendix is surgicall y absent. There is colonic diverticulosis. There is persistent acute diverticulitis involving the alysa cending colon. There are postsurgical changes of a rectosigmoid anastomosis Peritoneum: There is no intraperitoneal free air or abdominal ascites. Vasculature: The abdominal aorta is normal in course and caliber. Adenopathy: None. Pelvic viscera: The uterus appears surgically absent Skeletal structures: No destructive osseous lesions are seen. IMPRESSION: 1. Acute diverticulitis involving the descending colon. No evidence of peridiverticular abscess 2. No evidence of bowel obstruction. No evidence of free air 3. Hepatic steatosis 4. Surgically absent gallbladder appendix and uterus 5. Bilateral nephrolithiasis. No ureteral calculi identified. ACT 112: Negative or not required by law. Electronically signed by: Sp García M.D. 07/06/2020 8:06 AM
[2020-07-06] MEDS: D5NSS + 20MEQ KCL 20 MEQ/1,000 ML BAG IV SCH ×2 (08:09→20:00)
[2020-07-06] MEDS: LACTOBACILLUS ACIDOPHILUS (FLORANEX) TAB PO SCH ×4 (08:49→19:58)
[2020-07-06] MEDS: FEXOFENADINE HCL 180 MG TAB PO SCH (08:49)
[2020-07-06] MEDS: VENLAFAXINE HCL XR 150 MG CAPXR PO SCH (08:49)
--- NOTE | 2020-07-06 09:23 | Electrocardiogram Report ---
Test Reason : Blood Pressure : / mmHG Vent. Rate : 083 BPM Atrial Rate : 083 BPM P-R Int : 134 ms QRS Dur : 072 ms QT Int : 366 ms P-R-T Axes : 043 062 046 degrees QTc Int : 430 ms Normal sinus rhythm Nonspecific T wave abnormality Abnormal ECG When compared with ECG of 08-JUL-2019 08:31, No significant change was found Confirmed by Joseluis Salinas ([id number]) on 07/06/2020 9:22:48 AM Referred By: REFERRED SELF Confirmed By:Joseluis Salinas
[2020-07-06] MEDS: PANTOprazole 40 MG in SYRINGE 0 ML IV SCH (10:29)
[2020-07-06] MEDS ORDERED: HYDROmorphone INJ 1 MG/ML SYRINGE IV STA (10:31)
--- NOTE | 2020-07-06 11:49 | Surgery Progress Note ---
Date of Service July 06, 2020 Assessment & Plan (1) Diverticulitis: Acute diverticulitis improving conservative measures Would continue IV antibiotics Consider keeping n.p.o. for 1 more day and then may be beginning clear liquids tomorrow No evidence of peritonitis or need for immediate surgical intervention. Admission and Anticipated Discharge Date Admission Date: July 04, 2020 Subjective Feels better today Having less pain in the left iliac fossa area however the right flank discomfort is about the same. Denies nausea and vomiting No melena or hematochezia Physical Exam Gastrointestinal (Abdomen): Inspection/Auscultation: normal bowel sounds; abdomen not distended Percussion/Palpation: + abdomen tender (Left iliac fossa area but less prominent today) and abdomen soft Results & Data ([facility]) Vital Signs (Past 12 Hours) Vital Signs Temp Pulse Resp BP Pulse Ox 07/06/20 07:20 37.3 C 97 H 18 125/82 93 Laboratory Results 07/06/20 07/06/20 07/06/20 Range/Units 04:47 04:47 04:47 WBC 8.49 (4.8-10.8) K/uL RBC 4.15 L (4.2-5.4) M/uL Hgb 12.3 (12.0-16.0) g/dL Hct 38.6 (37-47) % MCV 93.0 (80-100) fL MCH 29.6 (25-34) pg MCHC 31.9 L (32-36) g/dL RDW Std Deviation 44.8 (36.4-46.3) fL RDW Coeff of Liat 13.2 (11.5-14.5) % Plt Count 261 (130-400) K/uL MPV 9.7 (7.4-10.4) fL Immature Gran % (Auto) 0.2 % Neut % (Auto) 44.1 % Lymph % (Auto) 41.3 % [place] % (Auto) 8.4 % Eos % (Auto) 5.5 % Baso % (Auto) 0.5 % Neut # (Auto) 3.74 (1.4-6.5) K/uL Lymph # (Auto) 3.51 H (1.2-3.4) K/uL [place] # (Auto) 0.71 H (0.11-0.59) K/uL Eos # (Auto) 0.47 (0-0.5) K/uL Baso # (Auto) 0.04 (0-0.2) K/uL Immature Gran # (Auto) 0.02 (0.00-0.02) K/uL Sodium 141 (136-145) mmol/L Potassium 4.6 (3.5-5.1) mmol/L Chloride 107 (98-107) mmol/L Carbon Dioxide 30 (21-32) mmol/L Anion Gap 4.0 (3-11) BUN 5 L (7-18) mg/dl Creatinine 0.77 (0.6-1.2) mg/dl Est Cr Clr Drug Dosing 107.4 ml/min Est GFR ( Amer) 105.8 Est GFR (Non-Af Amer) 91.3 BUN/Creatinine Ratio 6.7 L (10-20) Glucose 96 (70-99) mg/dl Calcium 9.3 (8.5-10.1) mg/dl Total Bilirubin 0.3 (0.2-1) mg/dl Direct Bilirubin < 0.1 (0-0.2) mg/dl AST 25 (15-37) U/L ALT 38 (12-78) U/L Alkaline Phosphatase 79 (45-117) U/L Total Protein 7.3 (6.4-8.2) gm/dl Albumin 3.1 L (3.4-5.0) gm/dl Lipase 83 (73-393) U/L
[2020-07-06] MEDS ORDERED: PROMETHAZINE HCL 12.5 MG in SODIUM CHLORIDE 0.9% 50 ML IV PRN (14:15)
--- NOTE | 2020-07-06 19:04 | Hospitalist Progress Note ---
Date of Service July 06, 2020 Assessment & Plan (1) Acute diverticulitis: 50-year-old female with history of diverticulitis, status post colonic resection, Gastritis, migraine, GERD, dyslipidemia, TIA, presenting with left upper quadrant pain since 3 AM today. Acute diverticulitis History of diverticulitis, status post colonic resection CT abdomen pelvis: 1. No evidence of bowel obstruction. No evidence of free air 2. Acute diverticulitis involving the proximal descending colon 3. Bilateral nephrolithiasis. No ureteral or bladder calculi identified Improving maintain NPO except meds, sips of water, joseph randy, coffee Continue ciprofloxacin 40 mg IV every 12 hours and Flagyl 5 mg every 8 hours Verified with patient, she has had ciprofloxacin in the past with no problems, allergic or adverse reactions Probiotics for history of C. difficile colitis continue D5 NSS +20 of K Dilaudid and oxycodone as needed for pain, patient develops hives with NSAIDs General surgery consulted--> appreciate the recommendations RUQ pain likely Renal colic pain LFTs normal CT abd: Liver: There is hepatic steatosis. No focal masses are visualized in this noncontrast study Gallbladder: Surgically absent Kidneys: There are bilateral nonobstructing renal calculi. No ureteral or bladder calculi are visualized History of gastritis Protonix IV daily History of DWAYNE, Continue Effexor Monitor QT interval History of TIA Hold off on aspirin DVT prophylaxis SCDs for now in light of diverticulitis Disposition Anticipated discharge home when medically stable Plan of care discussed in detail with patient All questions were answered She is understanding, agreeable, comfortable plan of care Admission and Anticipated Discharge Date Admission Date: July 04, 2020 Subjective ff up for acute diverticulitis seen resting in bed, comfortable reports LUQ is improving, (+) flatus, no BM, no nausea/vomiting, chills (+) sharp RUQ pain no hematuria, dysuria no chest pain, SOB, palpitations, dizziness tolerating joseph randy no other symptom Review of Systems Review of Systems: All systems reviewed & are unremarkable except as noted in HPI & below Physical Exam Physical Exam: General- oriented x 3, not in distress, speaks in sentences with no effort or accessory muscle use Eyes- anicteric Neck- no JVD Lungs- clear breath sounds bilaterally, no rales/wheezes Heart- normal rate, regular rhythm; no murmurs Abdomen- normal bowel sounds, nondistended, soft, minimal LUQ tenderness mild RUQ tenderness Extremities- no pretibial edema, no calf tenderness Neuro- alert, oriented x 3; no gross focal neurologic deficits Skin- warm & dry Results & Data Results & Data ([facility]) Vital Signs (Past 12 Hours) Vital Signs Temp Pulse Pulse Resp BP Pulse Ox 07/06/20 16:17 36.8 C 104 H 18 138/84 96 07/06/20 07:20 37.3 C 97 H 18 125/82 93 Laboratory Results Laboratory Results - last 24 hr 07/06/20 07/06/20 07/06/20 04:47 04:47 04:47 WBC 8.49 RBC 4.15 L Hgb 12.3 Hct 38.6 MCV 93.0 MCH 29.6 MCHC 31.9 L RDW Std Deviation 44.8 RDW Coeff of Liat 13.2 Plt Count 261 MPV 9.7 Immature Gran % (Auto) 0.2 Neut % (Auto) 44.1 Lymph % (Auto) 41.3 Porter % (Auto) 8.4 Eos % (Auto) 5.5 Baso % (Auto) 0.5 Neut # (Auto) 3.74 Lymph # (Auto) 3.51 H Porter # (Auto) 0.71 H Eos # (Auto) 0.47 Baso # (Auto) 0.04 Immature Gran # (Auto) 0.02 Sodium 141 Potassium 4.6 Chloride 107 Carbon Dioxide 30 Anion Gap 4.0 BUN 5 L Creatinine 0.77 Est Cr Clr Drug Dosing 107.4 Est GFR ( Amer) 105.8 Est GFR (Non-Af Amer) 91.3 BUN/Creatinine Ratio 6.7 L Glucose 96 Calcium 9.3 Total Bilirubin 0.3 Direct Bilirubin < 0.1 AST 25 ALT 38 Alkaline Phosphatase 79 Total Protein 7.3 Albumin 3.1 L Lipase 83
[2020-07-06] MEDS: HEPARIN SOD 5,000 UNIT/0.5 ML VIAL SQ SCH (21:23)
[2020-07-07] MEDS: HYDROmorphone INJ 1 MG/ML SYRINGE IV PRN ×4 (00:14→15:20)
[2020-07-07] MEDS ORDERED: HYDROmorphone INJ 0.5 MG/0.5 ML SYR IV STA (01:49)
[2020-07-07] MEDS: metroNIDAZOLE 500 MG/100 ML BAG IV SCH ×3 (01:56→17:52)
[2020-07-07] MEDS: CIPROFLOXACIN / D5W 400 MG/200 ML BAG IV SCH ×2 (05:55→17:52)
[2020-07-07] MEDS: HEPARIN SOD 5,000 UNIT/0.5 ML VIAL SQ SCH ×3 (05:56→21:07)
[2020-07-07 06:07] LABS: Basophils # (auto) 0.02 K/uL (0-0.2); Basophils % (auto) 0.3 %; Eosinophils # (auto) 0.57 K/uL (0-0.5); Eosinophils % (auto) 7.4 %; Hematocrit (blood only) 39.1 % (37-47); Hemoglobin 12.5 g/dL (12.0-16.0); Immature Granulocytes # (auto) 0.01 K/uL (0.00-0.02); Immature Granulocytes % (auto) 0.1 %; Lymphocytes # (auto) 2.91 K/uL (1.2-3.4); Lymphocytes % (auto) 37.7 %; Mean Corpuscular Hemoglobin 29.5 pg (25-34); Mean Corpuscular Volume 92.2 fL (80-100); Mean Platelet Volume 9.3 fL (7.4-10.4); Monocytes # (auto) 0.57 K/uL (0.11-0.59); Monocytes % (auto) 7.4 %; Neutrophils # (auto) 3.64 K/uL (1.4-6.5); Neutrophils % (auto) 47.1 %; Platelet Count 271 K/uL (130-400); RDW Coefficient of Variation 12.9 % (11.5-14.5); RDW Standard Deviation 43.6 fL (36.4-46.3); Red Blood Count 4.24 M/uL (4.2-5.4); White Blood Count 7.72 K/uL (4.8-10.8)
[2020-07-07 06:38] LABS: BUN Creatinine Ratio 5.4 (10-20); Calcium 8.8 mg/dl (8.5-10.1); Creatinine Clr Calc Pharmacy 96.1 ml/min; Est GFR (African American) 92.6; Est GFR (Non-African American) 79.9
[2020-07-07] MEDS: OXYCODONE HCL IR 5 MG TAB (IMMEDIATE RELEASE) PO PRN ×3 (08:00→18:58)
[2020-07-07] MEDS: FEXOFENADINE HCL 180 MG TAB PO SCH (08:01)
[2020-07-07] MEDS: LACTOBACILLUS ACIDOPHILUS (FLORANEX) TAB PO SCH ×4 (08:01→21:23)
[2020-07-07] MEDS: VENLAFAXINE HCL XR 150 MG CAPXR PO SCH (08:01)
[2020-07-07] MEDS: D5NSS + 20MEQ KCL 20 MEQ/1,000 ML BAG IV SCH (10:04)
[2020-07-07] MEDS: PANTOprazole 40 MG in SYRINGE 0 ML IV SCH (10:23)
[2020-07-07] MEDS: HYDROCORTISONE 1% OINT 30 GM TUBE EXT SCH ×2 (10:40→21:24)
[2020-07-07 10:50] LABS: Alanine Aminotransferase 35 U/L (12-78); Albumin Level 3.2 gm/dl (3.4-5.0); Alkaline Phosphatase 78 U/L (45-117); Aspartate Aminotransferase 26 U/L (15-37); Bilirubin Direct < 0.1 mg/dl (0-0.2); Bilirubin,Total 0.4 mg/dl (0.2-1); Lipase 58 U/L (73-393); Total Protein 7.3 gm/dl (6.4-8.2)
--- NOTE | 2020-07-07 11:20 | Surgery Progress Note ---
Date of Service July 07, 2020 Assessment & Plan (1) Diverticulitis: Improving with conservative measures History of sigmoid resection for recurrent diverticulitis now with multiple episodes of recurrent diverticulitis of descending colon. Would continue IV antibiotics May begin clear liquids this evening after MRCP No evidence of peritonitis or need for immediate surgical intervention. Dr. Claire has seen patient and was present during my examination and agrees with above. Admission and Anticipated Discharge Date Admission Date: July 04, 2020 Subjective feeling better in regards to lower left abdominal pain no nausea or vomiting no bowel movement but passing gas had increase in right upper abdominal pain last night, going for MRI today repeat CT scan last night was unremarkable Physical Exam Constitutional: WD/WN, vitals as above no acute distress and not ill cat earing Respiratory: normal respiratory effort; no respiratory distress, no labored breathing and no retractions Gastrointestinal (Abdomen): Inspection/Auscultation: abdomen normal to inspection; abdomen not distended Percussion/Palpation: + abdomen tender (RUQ , mild, no guarding) and abdomen soft; no guarding and abdomen not rigid Skin: no rashes, warm and dry Psychiatric: A+Ox3, euthymic affect Results & Data ([facility]) Vital Signs (Past 12 Hours) Vital Signs Temp Pulse Pulse Resp BP Pulse Ox 07/07/20 08:40 37.0 C 89 18 129/85 97 07/06/20 23:45 37.2 C 92 H 16 162/83 H 97 Laboratory Results 07/07/20 07/07/20 07/07/20 Range/Units 05:33 05:33 05:33 WBC 7.72 (4.8-10.8) K/uL RBC 4.24 (4.2-5.4) M/uL Hgb 12.5 (12.0-16.0) g/dL Hct 39.1 (37-47) % MCV 92.2 (80-100) fL MCH 29.5 (25-34) pg MCHC 32.0 (32-36) g/dL RDW Std Deviation 43.6 (36.4-46.3) fL RDW Coeff of Liat 12.9 (11.5-14.5) % Plt Count 271 (130-400) K/uL MPV 9.3 (7.4-10.4) fL Immature Gran % (Auto) 0.1 % Neut % (Auto) 47.1 % Lymph % (Auto) 37.7 % [place] % (Auto) 7.4 % Eos % (Auto) 7.4 % Baso % (Auto) 0.3 % Neut # (Auto) 3.64 (1.4-6.5) K/uL Lymph # (Auto) 2.91 (1.2-3.4) K/uL [place] # (Auto) 0.57 (0.11-0.59) K/uL Eos # (Auto) 0.57 H (0-0.5) K/uL Baso # (Auto) 0.02 (0-0.2) K/uL Immature Gran # (Auto) 0.01 (0.00-0.02) K/uL Sodium 141 (136-145) mmol/L Potassium 4.0 (3.5-5.1) mmol/L Chloride 108 H (98-107) mmol/L Carbon Dioxide 31 (21-32) mmol/L Anion Gap 2.0 L (3-11) BUN 5 L (7-18) mg/dl Creatinine 0.86 (0.6-1.2) mg/dl Est Cr Clr Drug Dosing 96.1 ml/min Est GFR ( Amer) 92.6 Est GFR (Non-Af Amer) 79.9 BUN/Creatinine Ratio 5.4 L (10-20) Glucose 114 H (70-99) mg/dl Calcium 8.8 (8.5-10.1) mg/dl Total Bilirubin 0.4 (0.2-1) mg/dl Direct Bilirubin < 0.1 (0-0.2) mg/dl AST 26 (15-37) U/L ALT 35 (12-78) U/L Alkaline Phosphatase 78 (45-117) U/L Total Protein 7.3 (6.4-8.2) gm/dl Albumin 3.2 L (3.4-5.0) gm/dl Lipase 58 L (73-393) U/L
--- NOTE | 2020-07-07 13:42 | Magnetic Resonance Report ---
MRCP CLINICAL HISTORY: Upper abdominal pain. COMPARISON STUDY: Abdominal CT dated 07/06/2020. TECHNIQUE: Abdominal MRCP is performed utilizing various T2-weighted sequences in the axial and coron al planes. 3-D reformats are created and assessed. IV contrast was not administered for this examinat ion. FINDINGS: The gallbladder is surgically absent. There is no intra or extrahepatic biliary ductal dilatation. Th e common bile duct measures up to 5 mm in diameter. There are no intraluminal filling defects to sugg est choledocholithiasis. The pancreatic duct is normal in caliber. Pancreas divisum is noted. The unenhanced liver, spleen, pancreas, adrenal glands, and kidneys are grossly normal. There is no b owel obstruction. Moderate to severe fecal retention is noted in the colon. Diverticulitis of the alysa cending colon is partially visualized. There is no abdominal ascites. No abdominal lymphadenopathy is seen. The abdominal aorta is normal in caliber. The imaged bony structures demonstrate normal marrow signal intensity. There is no pleural effusion. IMPRESSION: 1. Status post cholecystectomy. 2. There is no intra or extrahepatic biliary ductal dilatation. There is no evidence of choledocholit hiasis. 3. Pancreatic divisum. 4. Moderate to severe constipation. 5. Diverticulitis of the descending colon is partially visualized. Dictated: 07/07/2020 1:28 PM Transcribed: 07/07/2020 1:37 PM Pina [id number] [email or web address] Electronically signed by: Conrad Carbajal M.D. 07/07/2020 1:40 PM
--- NOTE | 2020-07-07 20:20 | Hospitalist Progress Note ---
Date of Service July 07, 2020 Assessment & Plan (1) Acute diverticulitis: 50-year-old female with history of diverticulitis, status post colonic resection, Gastritis, migraine, GERD, dyslipidemia, TIA, presenting with left upper quadrant pain since 3 AM today. Acute diverticulitis History of diverticulitis, status post colonic resection CT abdomen pelvis: 1. No evidence of bowel obstruction. No evidence of free air 2. Acute diverticulitis involving the proximal descending colon 3. Bilateral nephrolithiasis. No ureteral or bladder calculi identified Improving advance diet to clear liquids, advance as tolerated Continue ciprofloxacin 40 mg IV every 12 hours and Flagyl 5 mg every 8 hours Verified with patient, she has had ciprofloxacin in the past with no problems, allergic or adverse reactions Probiotics for history of C. difficile colitis d/c Fluids Dilaudid and oxycodone as needed for pain, patient develops hives with NSAIDs General surgery consulted--> appreciate the recommendations RUQ pain likely Renal colic pain LFTs normal CT abd: Liver: There is hepatic steatosis. No focal masses are visualized in this noncontrast study Gallbladder: Surgically absent Kidneys: There are bilateral nonobstructing renal calculi. No ureteral or bladder calculi are visualized MRCP: no choledocholithiasis (+) mod-severe constipation Senokot S daily History of gastritis Protonix IV daily History of DWAYNE, Continue Effexor Monitor QT interval History of TIA should be on ASA but not in Med Rec Hold off on aspirin in light of acute diverticulitis DVT prophylaxis heparin SC Disposition Anticipated discharge home when medically stable Plan of care discussed in detail with patient All questions were answered She is understanding, agreeable, comfortable plan of care Admission and Anticipated Discharge Date Admission Date: July 04, 2020 Subjective ff up for acute diverticulitis seen resting in bed, comfortable abdominal pain improving (+) flatus no nausea, fever/chills noted rash on the neck area, no pruritus, minimal pain no other symptoms Review of Systems Review of Systems: All systems reviewed & are unremarkable except as noted in Subjective Physical Exam Physical Exam: General- oriented x 3, not in distress, speaks in sentences with no effort or accessory muscle use Eyes- anicteric Neck- no JVD (+) papular rash on the sides of the neck, following skin folds no signs of infection, no discharge Lungs- clear BS BL Heart- normal rate, regular rhythm; no murmurs Abdomen- normal bowel sounds, nondistended, soft, minimal tenderness on the R abdominal quadrants Extremities- no pretibial edema, no calf tenderness Neuro- alert, oriented x 3; no gross focal neurologic deficits Skin- warm & dry Results & Data Results & Data ([facility]) Vital Signs (Past 12 Hours) Vital Signs Temp Pulse Resp BP Pulse Ox 07/07/20 15:14 37.2 C 89 18 118/82 95 07/07/20 08:40 37.0 C 89 18 129/85 97
[2020-07-07] MEDS ORDERED: HYDROmorphone INJ 1 MG/ML SYRINGE IV PRN (20:37)
[2020-07-07] MEDS ORDERED: ONDANSETRON INJ 2 MG/ML 2 ML VIAL IV PRN (22:13)
[2020-07-08] MEDS: OXYCODONE HCL IR 5 MG TAB (IMMEDIATE RELEASE) PO PRN (00:11)
[2020-07-08] MEDS: metroNIDAZOLE 500 MG/100 ML BAG IV SCH (02:36)
[2020-07-08 06:10] LABS: Basophils # (auto) 0.02 K/uL (0-0.2); Basophils % (auto) 0.3 %; Eosinophils # (auto) 0.58 K/uL (0-0.5); Eosinophils % (auto) 7.4 %; Hematocrit (blood only) 38.4 % (37-47); Hemoglobin 12.3 g/dL (12.0-16.0); Immature Granulocytes # (auto) 0.02 K/uL (0.00-0.02); Immature Granulocytes % (auto) 0.3 %; Lymphocytes # (auto) 2.79 K/uL (1.2-3.4); Lymphocytes % (auto) 35.5 %; Mean Corpuscular Hemoglobin 29.3 pg (25-34); Mean Corpuscular Volume 91.4 fL (80-100); Mean Platelet Volume 9.5 fL (7.4-10.4); Monocytes # (auto) 0.59 K/uL (0.11-0.59); Monocytes % (auto) 7.5 %; Neutrophils # (auto) 3.85 K/uL (1.4-6.5); Platelet Count 288 K/uL (130-400); RDW Coefficient of Variation 12.9 % (11.5-14.5); RDW Standard Deviation 43.3 fL (36.4-46.3); White Blood Count 7.85 K/uL (4.8-10.8)
[2020-07-08] MEDS: CIPROFLOXACIN / D5W 400 MG/200 ML BAG IV SCH (06:14)
[2020-07-08] MEDS: HEPARIN SOD 5,000 UNIT/0.5 ML VIAL SQ SCH (06:15)
[2020-07-08 06:40] LABS: BUN Creatinine Ratio 4.1 (10-20); Creatinine Clr Calc Pharmacy 92.9 ml/min; Est GFR (African American) 88.8; Est GFR (Non-African American) 76.6; Potassium 3.8 mmol/L (3.5-5.1)
--- NOTE | 2020-07-08 07:22 | Surgery Progress Note ---
Date of Service July 08, 2020 Assessment & Plan (1) Diverticulitis: No left-sided abdominal pain today Denies nausea and vomiting Tolerated diet MRCP showed pancreas divisum but there is no ductal dilatation and no evidence of pancreatitis Continue to conservative measures with diet advancement as tolerated Will need colonoscopy approximately 2 months after defervesced since No need for surgical intervention at this time Admission and Anticipated Discharge Date Admission Date: July 04, 2020 Subjective Feels better today Tolerated diet Denies nausea and vomiting Denies abdominal pain Right upper side Physical Exam Gastrointestinal (Abdomen): normal bowel sounds, soft, nontender, no hepatosplenomegaly Results & Data ([facility]) Vital Signs (Past 12 Hours) Vital Signs Temp Pulse Resp BP Pulse Ox 07/07/20 23:09 37.3 C 105 H 16 148/95 H 93 Diagnostic Findings MRCP CLINICAL HISTORY: Upper abdominal pain. COMPARISON STUDY: Abdominal CT dated 07/06/2020. TECHNIQUE: Abdominal MRCP is performed utilizing various T2-weighted sequences in the axial and coronal planes. 3-D reformats are created and assessed. IV contrast was not administered for this examination. FINDINGS: The gallbladder is surgically absent. There is no intra or extrahepatic biliary ductal dilatation. The common bile duct measures up to 5 mm in diameter. There are no intraluminal filling defects to suggest choledocholithiasis. The pancreatic duct is normal in caliber. Pancreas divisum is noted. The unenhanced liver, spleen, pancreas, adrenal glands, and kidneys are grossly normal. There is no bowel obstruction. Moderate to severe fecal retention is noted in the colon. Diverticulitis of the descending colon is partially visualized. There is no abdominal ascites. No abdominal lymphadenopathy is seen. The abdominal aorta is normal in caliber. The imaged bony structures demonstrate normal marrow signal intensity. There is no pleural effusion. IMPRESSION: 1. Status post cholecystectomy. 2. There is no intra or extrahepatic biliary ductal dilatation. There is no evidence of choledocholithiasis. 3. Pancreatic divisum. 4. Moderate to severe constipation. 5. Diverticulitis of the descending colon is partially visualized.
[2020-07-08] MEDS: LACTOBACILLUS ACIDOPHILUS (FLORANEX) TAB PO SCH (08:34)
[2020-07-08] MEDS: HYDROCORTISONE 1% OINT 30 GM TUBE EXT SCH (08:35)
[2020-07-08] MEDS: VENLAFAXINE HCL XR 150 MG CAPXR PO SCH (08:35)
[2020-07-08] MEDS: FEXOFENADINE HCL 180 MG TAB PO SCH (08:35)
[2020-07-08] MEDS ORDERED: DOCUSATE SODIUM/SENNA 50/8.6MG TAB PO SCH (09:00)
--- NOTE | 2020-07-08 09:24 | Hospitalist Progress Note ---
Date of Service July 08, 2020 Assessment & Plan (1) Acute diverticulitis: History of diverticulitis, status post colonic resection RIGHT UPPER QUADRANT pain from acute diverticulitis -CT abdomen pelvis: 1. No evidence of bowel obstruction. No evidence of free air 2. Acute diverticulitis involving the proximal descending colon 3. Bilateral nephrolithiasis. No ureteral or bladder calculi identified -other labs and imaging: LFTs normal CT abd: Liver: There is hepatic steatosis. No focal masses are visualized in this noncontrast study Gallbladder: Surgically absent Kidneys: There are bilateral nonobstructing renal calculi. No ureteral or bladder calculi are visualized MRCP: no choledocholithiasis (+) mod-severe constipation -Senokot given -Patient was given IV Ciprofloxacin and IV Metronidazole for Acute Diverticulitis without allergic reaction in this hospital stay that started on 07/04/2020 -Patient was seen by general surgery consult while in the hospital and they recommended outpatient colonoscopy approximately 2 months after hospital discharge. -Patient has appointment scheduled for Dr. Naik at [address] [place] [address] for July 15, 2020 at 3 PM and should talk with primary care doctor about referral for gastroneterology -Patient has prescription for 10 more days of Ciprofloxacin 500 mg twice a day and also Metronidazole 500 mg three times a day that has been electronically sent to [facility] [address] [place] [address] -also sent prescription for lactobacillus as 4 tabs three times a day to prevent C.difficile from antbiotic use -also sent prescription for senna daily x 10 days to prevent constipation History of gastritis -given Protonix General anxiety disorder -on effexor -mood stable History of TIA -chart review that patient has history of TIA (Transient ischemic attack) in the past, but not on aspirin at home, Hold off on aspirin in light of acute diverticulitis, patient should discuss with family doctor about TIA prevention disposition: patient to be discharged on 07/08/2020 and she was counseled about advancing from liquid diet Admission and Anticipated Discharge Date Admission Date: July 04, 2020 Subjective Patient was seen and examined today. denied vomiting. denied nausea. no abdomen pain. no recent fevers. patient tolerating the liquid diet. she feels ready for hospital discharge. discharge plans and instructions discussed at length Review of Systems Review of Systems: All systems reviewed & are unremarkable except as noted in HPI & below Physical Exam Constitutional: comfortable Eyes: PERRL, conjunctivae normal, anicteric sclerae EOM intact bilaterally ENMT: external ear and nose normal, oropharynx normal Neck: trachea midline, no thyromegaly normal visual inspection Respiratory: normal respiratory effort, lungs clear to auscultation Cardiovascular: Rate/Rhythm: regular rate and regular rhythm Gastrointestinal (Abdomen): normal bowel sounds, soft, nontender, no hepatosplenomegaly Musculoskeletal: Head/Neck/Chest: normocephalic and head atraumatic Neurologic: PERRL, EOMI, accommodation nl, no face palsy, no dysarthria CN's II-XI intact bilaterally and moves all extremities Psychiatric: A+Ox3, euthymic affect Results & Data Results & Data ([facility]) Vital Signs (Past 12 Hours) Vital Signs Temp Pulse Resp BP Pulse Ox 07/08/20 07:37 36.8 C 86 18 124/80 90 07/07/20 23:09 37.3 C 105 H 16 148/95 H 93
[2020-07-08] MEDS ORDERED: SENNA 8.6 MG TAB PO SCH (09:30)
--- NOTE | 2020-07-08 09:34 | Discharge Summary ---
Date of Service July 08, 2020 Admission HPI Per Admitting Provider 50-year-old female with history of diverticulitis status post colonic resection, Gastritis, migraine, generalized anxiety disorder, TIA, dyslipidemia, presenting with left abdominal pain since 3 AM today. Per patient she has had colonic resection performed about 10 years ago for recurrent diverticulitis. Since that time patient had occasional acute diverticulitis resolved with antibiotics. This morning around 3 AM, patient was awakened by left abdominal pain radiating to the left flank. Patient also had chills but no nausea or vomiting, chest pain, shortness of breath, headache or dizziness. Patient took at least 4 1000 mg Tylenol tablets with no improvement, prompting consult to the ER At the ER, patient's CT scan of the abdomen pelvis revealed acute diverticulitis in the area of descending colon. Patient was given Cipro plus Flagyl, Dilaudid IV. On exam, the patient is sitting up in bed, comfortable, not in distress. Patient reports pain is still 6-7 out of 10 but no nausea, chills at the time of my exam. Denies any other active symptoms on my exam Principal Diagnosis Acute diverticulitis General anxiety disorder (on effexor) Discharge Exam Constitutional comfortable Eyes PERRL, conjunctivae normal, anicteric sclerae EOM intact bilaterally ENMT external ear and nose normal, oropharynx normal Neck trachea midline, no thyromegaly normal visual inspection Respiratory normal respiratory effort, lungs clear to auscultation Cardiovascular Rate/Rhythm: regular rate and regular rhythm Gastrointestinal (Abdomen) normal bowel sounds, soft, nontender, no hepatosplenomegaly Musculoskeletal Head/Neck/Chest: normocephalic and head atraumatic Neurologic PERRL, EOMI, accommodation nl, no face palsy, no dysarthria CN's II-XI intact bilaterally and moves all extremities Psychiatric A+Ox3, euthymic affect Discharge Data Allergies Allergy/AdvReac Type Severity Reaction Status Date / Time ibuprofen Allergy Severe Shortness Verified 07/04/20 18:14 of breath and hives Iodinated Contrast Media Allergy Severe Hives Verified 07/04/20 18:14 moxifloxacin Allergy Severe Shortness Verified 07/04/20 18:14 of breath and hives Penicillins Allergy Severe Anaphylaxis Verified 07/04/20 18:14 Sulfa (Sulfonamide Allergy Severe Shortness Verified 07/04/20 18:14 Antibiotics) of breath and hives tramadol Allergy Severe Hives Verified 07/04/20 18:14 aspirin Allergy Unknown Unknown Verified 07/04/20 18:14 dicyclomine [From Bentyl] AdvReac Intermediate Constipatio Verified 07/04/20 18:15 n haloperidol AdvReac Intermediate "KEEPS ME Verified 02/18/20 15:43 AWAKE, CAN'T SLEEP". ketorolac AdvReac Intermediate "TEARS Verified 07/04/20 18:15 STOMACH UP" prochlorperazine AdvReac MOTOR Unverified 07/04/20 18:19 RESTLESSNESS Consultations 07/04/20 17:53 ED Decision to Admit Stat 07/04/20 19:13 Consult General Surgery Routine Ordered Studies 07/04/20 15:28 CT abd pelvis wo con Stat 07/06/20 06:59 CT abd pelvis wo con Urgent 07/07/20 09:52 MR MRCP Stat Hospital Course (1) Acute diverticulitis: History of diverticulitis, status post colonic resection RIGHT UPPER QUADRANT pain from acute diverticulitis -CT abdomen pelvis: 1. No evidence of bowel obstruction. No evidence of free air 2. Acute diverticulitis involving the proximal descending colon 3. Bilateral nephrolithiasis. No ureteral or bladder calculi identified -other labs and imaging: LFTs normal CT abd: Liver: There is hepatic steatosis. No focal masses are visualized in this noncontrast study Gallbladder: Surgically absent Kidneys: There are bilateral nonobstructing renal calculi. No ureteral or bladder calculi are visualized MRCP: no choledocholithiasis (+) mod-severe constipation -Senokot given -Patient was given IV Ciprofloxacin and IV Metronidazole for Acute Diverticulitis without allergic reaction in this hospital stay that started on 07/04/2020 -Patient was seen by general surgery consult while in the hospital and they recommended outpatient colonoscopy approximately 2 months after hospital discharge. -Patient has appointment scheduled for Dr. Naik at [address] [place] [address] for July 15, 2020 at 3 PM and should talk with primary care doctor about referral for gastroneterology -Patient has prescription for 10 more days of Ciprofloxacin 500 mg twice a day and also Metronidazole 500 mg three times a day [place] [address] [place] [address] -also sent prescription for lactobacillus as 4 tabs three times a day to prevent C.difficile from antbiotic use -also sent prescription for senna daily x 10 days to prevent constipation History of gastritis -given Protonix General anxiety disorder -on effexor -mood stable History of TIA -chart review that patient has history of TIA (Transient ischemic attack) in the past, but not on aspirin at home, Hold off on aspirin in light of acute diverticulitis, patient should discuss with family doctor about TIA prevention disposition: patient to be discharged on 07/08/2020 and she was counseled about advancing from liquid diet Total Time Total Time Spent Total Time Spent (In Minutes): 40 minutes Total Time Includes: Examination of the Patient, Discharge Planning, Medication Reconciliation and Communication With Other Providers Discharge Plan Discharge Items Patient Disposition: Home - Self-Care Reason For Visit: ACUTE DIVERTICULITIS Discharge Diagnosis: Acute diverticulitis General anxiety disorder (on effexor) Condition on Discharge: Good Activity: Resume your previous activity Non-emergency contact: Primary Care Provider Call non-emergency contact if: you have any medication questions Follow-up/Referrals: Holland Naik MD [Primary Care Provider] - Diet: Full liquid Addtl Attending Provider Instructions: Patient was given IV Ciprofloxacin and IV Metronidazole for Acute Diverticulitis without allergic reaction. Patient was seen by general surgery consult while in the hospital and they recommended outpatient colonoscopy approximately 2 months after hospital discharge. Patient has appointment scheduled for Dr. Naik at [address] [place] [address] for July 15, 2020 at 3 PM and should talk with primary care doctor about referral for gastroneterology Patient has prescription for 10 more days of Ciprofloxacin 500 mg twice a day and also Metronidazole 500 mg three times a day that has been electronically sen t to [facility] [address] [place] [id number] also sent prescription for lactobacillus as 4 tabs three times a day to prevent C.difficile from antbiotic use also sent prescription for senna daily x 10 days to prevent constipation -chart review that patient has history of TIA (Transient ischemic attack) in the past, but not on aspirin at home, Hold off on aspirin in light of acute diverticulitis, patient should discuss with family doctor about TIA prevention disposition: patient to be discharged on 07/08/2020 and she was counseled about advancing from liquid diet Addtl [employer] Provider Instructions: CT abdomen pelvis: 1. No evidence of bowel obstruction. No evidence of free air 2. Acute diverticulitis involving the proximal descending colon 3. Bilateral nephrolithiasis. No ureteral or bladder calculi identified CT abd: Liver: There is hepatic steatosis. No focal masses are visualized in this noncontrast study Gallbladder: Surgically absent Kidneys: There are bilateral nonobstructing renal calculi. No ureteral or bladder calculi are visualized MRCP: no choledocholithiasis (+) mod-severe constipation Pending Studies at Discharge: No Stand-Alone Forms: [facility] [employer] [facility], Smoking Cessation Medications and DC Order Prescriptions: New ciprofloxacin HCl 500 mg Tablet 500 mg PO BID 10 Days Qty: 20 RF: 0 metronidazole 500 mg Tablet 500 mg PO TID 10 Days Qty: 30 RF: 0 sennosides [Senokot] 8.6 mg Tablet 8.6 mg PO QAM 10 Days Qty: 10 RF: 0 Lactobacillus acidoph-L.bulgar [Floranex] 1 million cell Tablet 4 tab PO TID 10 Days Qty: 120 RF: 0 Continued clonazepam 1 mg tablet 1 mg PO BID PRN (Reason: Anxiety) RF: 0 venlafaxine 150 mg capsule,extended release 24hr 300 mg PO QAM RF: 0 epinephrine [EpiPen 2-[employer]] 0.3 mg/0.3 mL Auto-Injector 0.3 mg IM DIRECTED PRN (Reason: Allergic Reaction) RF: 0 albuterol sulfate [Ventolin HFA] 90 mcg/actuation Hfa Aerosol Inhaler 2 puff INHALATION Q4H PRN (Reason: Shortness Of Breath Or Wheezing) RF: 0 omeprazole 20 mg Tablet,Delayed Release (Dr/Ec) 20 mg PO DAILY RF: 0 fexofenadine 180 mg Tablet 180 mg PO DAILY RF: 0 Discontinued Acidophilus Tablet,Chewable 1 tab PO DAILY RF: 0 Discharge Orders: Discharge Order (Routine); Ordered 07/08/20 Ordered By: Edwin Yang Admission Data Admit Date/Time: 07/04/20 19:04 Attending Provider: Edwin Yang Admit Provider: Froy Burroughs Primary Care Provider: Holland Naik Other Providers: Froy Burroughs ; Amrik Guerra
[2020-07-08] MEDS ORDERED: PANTOprazole 40 MG TAB PO SCH (10:00)
[2020-07-08] MEDS ORDERED: metroNIDAZOLE 500 MG TAB PO SCH (12:00)
[2020-07-08] MEDS ORDERED: CIPROFLOXACIN 500 MG TAB PO SCH (18:00)
== END 2020-07-08 11:03 | disposition home or self-care (01) | DRG 392 ==
LOC: ED 14:33 → 3E 18:08 → SUATTDRO 19:04

== ENCOUNTER 2023-02-27 20:40 | Inpatient (IN) ==
--- NOTE | 2023-02-27 21:41 | Emergency Department Note ---
History of Present Illness General Chief complaint: Abdominal Pain Stated complaint: EXTREME ABDOMINAL PAIN,FEVER, BLOODY STOOL, Time Seen by Provider: 02/27/23 21:38 History of Present Illness Maximum Pain Intensity: 10 This 52-year-old female patient presents to the emergency department for evaluation of abdominal pain, fever, and bloody stools. Symptoms started 3 days ago. She was initially seen in the emergency department on 02/10/2023 and found to have diverticulitis on CT scan. She was treated with a course of Cipro and Flagyl. She continued with symptoms and return to the emergency and on 02/16/2023 and was found to have mild/resolving diverticulitis on repeat CT scan. She was given IV Cipro and Flagyl in the ER and was discharged home on oral Cipro and Flagyl due to her multiple medication allergies. The patient finished the course of Cipro and Flagyl on 02/20/23 and the symptoms seemed to resolve at the end of the course of Cipro and Flagyl. However, has now been having nausea, vomiting, and diarrhea with 2 episodes of bright red rectal bleeding over the past 3 days. She rates her discomfort as 10/10. She did not tolerate the [place] that she was prescribed well because it caused vomiting. She has a history of multiple recurrent episodes of diverticulitis with a previous partial colon resection secondary to her diverticulitis. She was scheduled for a repeat colon resection due to her recurrent diverticulitis towards the end of this month, but it had to be pushed back due to her most recent episodes of diverticulitis. She denies any fevers. Denies any urinary symptoms. Denies any chest pain or shortness of breath. Home Medications Medication Instructions Recorded Confirmed Type albuterol sulfate 90 mcg/actuation 2 puff inhalation Q4H PRN 07/23/18 02/27/23 History aerosol inhaler (Ventolin HFA) Shortness Of Breath Or Wheezing clonazepam 1 mg tablet 1 mg PO BID PRN Anxiety 07/23/18 02/27/23 History epinephrine 0.3 mg/0.3 mL 0.3 mg IM DIRECTED PRN Allergic 07/23/18 02/27/23 History injection, auto-injector (EpiPen Reaction 2-Cisco) venlafaxine 150 mg 300 mg PO HS 07/23/18 02/27/23 History capsule,extended release 24 hr ondansetron 4 mg disintegrating 4 mg PO Q6H PRN nausea and 02/10/23 02/27/23 Rx tablet vomiting #15 tabs acetaminophen 500 mg tablet 1,000 mg PO QID PRN Pain 02/27/23 02/27/23 History Allergies Allergy/AdvReac Type Severity Reaction Status Date / Time ibuprofen Allergy Severe Shortness Verified 02/27/23 22:15 of breath and hives Iodinated Contrast Media Allergy Severe HIVES PER Verified 02/27/23 22:15 GMG--PER PT "NOT AN ALLERGY". ketorolac Allergy Severe HIVES/DIFFICULTY Verified 02/27/23 22:15 BREATHING moxifloxacin Allergy Severe Shortness Verified 02/27/23 22:15 of breath/dizziness Penicillins Allergy Severe Anaphylaxis Verified 02/27/23 22:15 /HIVES Sulfa (Sulfonamide Allergy Severe Shortness Verified 02/27/23 22:15 Antibiotics) of breath and hives tramadol Allergy Severe HIVES/DIFFICULTY Verified 02/27/23 22:15 BREATHING aspirin Allergy Unknown Unknown Verified 02/27/23 22:15 dicyclomine [From Bentyl] AdvReac Intermediate Constipatio Verified 02/27/23 22:15 n haloperidol AdvReac Intermediate "KEEPS ME Verified 02/27/23 22:15 AWAKE, CAN'T SLEEP". hydrocodone AdvReac Vomiting Verified 02/27/23 22:16 prochlorperazine AdvReac MOTOR Unverified 07/04/20 18:19 RESTLESSNESS Past Med/Surg History Medical History (Updated 02/28/23 @ 03:43 by Cinthya Rosenbaum PA-C) Asthma Depression Facial pain DWAYNE (generalized anxiety disorder) Gastroparesis Generalized pruritus GERD (gastroesophageal reflux disease) History of Clostridium difficile colitis HLD (hyperlipidemia) IBS (irritable bowel syndrome) Migraine Osteomyelitis Pancreatitis Squamous cell carcinoma of left shoulder Suicide attempt by drug ingestion On 04/21/16 10:30 Helene Rene wrote "03/22/2016" TIA (transient ischemic attack) Surgical History H/O colonoscopy H/O esophagogastroduodenoscopy H/O tubal ligation H/O unilateral oophorectomy History of colectomy due to diverticulitis 2009, Dr. Mancuso 2008 Hx of appendectomy Hx of tonsillectomy S/P cholecystectomy S/P MARLON (total abdominal hysterectomy) Family History Father Type 2 diabetes mellitus Mother Myocardial infarction Social History Smoking Status: Current every day smoker Tobacco Type: Cigarettes Cigarettes Per Day: 10; Second Hand Exposure: Yes; Do You Dip or Chew Tobacco: No; Hx Alcohol Use: No Hx Substance Use: No Preferred Language: Bengali Communication Ability: Effective Traffic Investigator Required: No Beliefs That Will Affect Care: None Current Living Situation: Alone Feels Safe at Home: Yes Safety Concerns: Feels Safe At This Time Assistive Devices: Glasses Review of Systems See HPI for pertinent positives & negatives. Physical Exam Vital Signs Vital Signs - 24 hr 02/27/23 20:48 02/27/23 22:54 02/27/23 23:47 Temperature 36.9 C Temperature Source Temporal Artery Scan Pulse Rate 118 H Pulse Rate [Finger] 94 H Pulse Rhythm Regular Pulse Strength Normal Respiratory Rate 25 H 20 Respiratory Effort / Characteristics Non-Labored Spontaneous Non-Labored Spontaneous Respiratory Depth Normal Normal Respiratory Pattern Regular Regular Blood Pressure 159/108 H Blood Pressure [Right Arm] 180/96 H Blood Pressure Mean 125 Blood Pressure Mean [Right Arm] 124 Blood Pressure Position Sitting Blood Pressure Position [Right Arm] Semi-fowlers Pulse Oximetry 96 98 95 Oxygen Delivery Method Room Air Room Air Room Air Sepsis Recent Fever Within 48 Hours Yes Sepsis New/Unexplained Change in Mental Status N/A Sepsis Action Taken by Nursing No Action Required 02/27/23 23:23 02/27/23 23:30 02/27/23 23:23 Temperature Temperature Source Pulse Rate 95 H 95 H 96 H Pulse Rate [Finger] Pulse Rhythm Pulse Strength Respiratory Rate 17 19 Respiratory Effort / Characteristics Respiratory Depth Respiratory Pattern Blood Pressure 176/105 H Blood Pressure [Right Arm] Blood Pressure Mean 128 Blood Pressure Mean [Right Arm] Blood Pressure Position Blood Pressure Position [Right Arm] Pulse Oximetry 92 94 Oxygen Delivery Method Room Air Room Air Sepsis Recent Fever Within 48 Hours Sepsis New/Unexplained Change in Mental Status Sepsis Action Taken by Nursing 02/28/23 00:00 02/28/23 00:30 02/28/23 01:00 Temperature Temperature Source Pulse Rate 97 H 96 H 91 H Pulse Rate [Finger] Pulse Rhythm Pulse Strength Respiratory Rate 19 23 21 Respiratory Effort / Characteristics Respiratory Depth Respiratory Pattern Blood Pressure 183/116 H 156/116 H 156/96 H Blood Pressure [Right Arm] Blood Pressure Mean 138 129 116 Blood Pressure Mean [Right Arm] Blood Pressure Position Blood Pressure Position [Right Arm] Pulse Oximetry 96 94 Oxygen Delivery Method Room Air Room Air Sepsis Recent Fever Within 48 Hours Sepsis New/Unexplained Change in Mental Status Sepsis Action Taken by Nursing VITALS: Vitals are noted on the nurse's note and reviewed by myself. GENERAL: Non toxic, no acute distress, non-diaphoretic. SKIN: Capillary refill <2 sec. EYES: PERRLA. EOMI. Conjunctivae without injection, sclerae without icterus. NOSE: Patent without discharge. MOUTH: Mucous membranes moist. Uvula midline. Airway patent. NECK: Supple without nuchal rigidity. HEART: Regular rate and rhythm without murmurs gallops or rubs. LUNGS: Clear to auscultation bilaterally without wheezes, rales or rhonchi. No retractions or accessory muscle use. ABDOMEN: Positive bowel sounds x 4. Normal tympanic percussion. Soft, tender to palpation on the left side of the abdomen. No masses or organomegaly. Hendrix sign negative. No guarding or rebound tenderness. No focal RLQ or LLQ tenderness. MUSCULOSKELETAL: No gross musculoskeletal defects. NEURO: Patient was alert and oriented to person place and time. No focal ne urological deficits. Course Administered Medications Lactated Ringer's (Lr) 1,000 mls @ 50 mls/hr IV .Q20H ONE Stop: 02/28/23 20:58 Last Admin: 02/28/23 02:42 Dose: 50 mls/hr Documented By: AMBROSIO Morphine Sulfate (Morphine Sulfate 4 Mg/Ml 1 Ml Carp\\Vial) 4 mg IV Q3H PRN PRN Reason: Pain Stop: 03/14/23 01:15 Last Admin: 02/28/23 09:02 Dose: 4 mg Documented By: Admin: 02/28/23 05:59 Dose: 4 mg Documented By: Admin: 02/28/23 02:41 Dose: 4 mg Documented By: AMBROSIO Nicotine (Nicotine 14 Mg/24 Hr Patch) 14 mg TD [facility] Stop: 03/30/23 01:14 Last Admin: 02/28/23 08:26 Dose: Not Given Documented By: JL Ondansetron HCl (Ondansetron Inj 2 Mg/Ml 2 Ml Vial) 4 mg IV Q6H PRN PRN Reason: nv Stop: 03/30/23 01:16 Last Admin: 02/28/23 10:52 Dose: 4 mg Documented By: JL Oxycodone HCl (Oxycodone Hcl Ir 5 Mg Tab (Immediate Release)) 5 - 10 mg PO QID PRN PRN Reason: Pain Stop: 03/14/23 01:15 Last Admin: 02/28/23 08:27 Dose: 10 mg Documented By: JL Discontinued Medications Diphenhydramine HCl (Diphenhydramine 50 Mg/Ml Vial) 50 mg IV ONE ONE Stop: 02/27/23 21:52 Last Admin: 02/27/23 22:23 Dose: Not Given Documented By: Fentanyl Citrate (Fentanyl Citrate Pf 100 Mcg/2 Ml Vial) 100 mcg IV NOW STA Stop: 02/27/23 23:49 Last Admin: 02/27/23 23:59 Dose: 100 mcg Documented By: ASHER Hydromorphone HCl (Hydromorphone Inj 0.5 Mg/0.5 Ml Syr) 0.5 mg IV NOW STA Stop: 02/27/23 21:52 Last Admin: 02/27/23 22:17 Dose: 0.5 mg Documented By: Sodium Chloride (Nss 1000ml) 1,000 mls @ 999 mls/hr IV .Q1H1M STA Stop: 02/27/23 22:51 Last Infusion: 02/27/23 23:46 Dose: 0 mls/hr Documented By: Admin: 02/27/23 22:18 Dose: 999 mls/hr Documented By: Ertapenem (Invanz) 10 mls @ 2 mls/min IV NOW STA Stop: 02/28/23 00:12 Last Admin: 02/28/23 01:47 Dose: 2 mls/min Documented By: ASHER Ioversol (Optiray 320 100ml) 90 ml IV ONCE ONE Stop: 02/27/23 23:22 Last Admin: 02/27/23 23:22 Dose: 90 ml Documented By: GISELA Lisinopril (Lisinopril 2.5 Mg Tab) 2.5 mg PO ONE ONE Stop: 02/28/23 00:41 Last Admin: 02/28/23 01:47 Dose: 2.5 mg Documented By: ASHER Methylprednisolone (Methylprednisolone 40 Mg/Ml Vial) 40 mg IV NOW ONE Stop: 02/27/23 21:52 Last Admin: 02/27/23 22:17 Dose: 40 mg Documented By: Ondansetron HCl (Ondansetron Inj 2 Mg/Ml 2 Ml Vial) 4 mg IV NOW STA Stop: 02/27/23 21:52 Last Admin: 02/27/23 22:17 Dose: 4 mg Documented By: Medical Decision Making Laboratory Data Attestation: I reviewed the patient's lab results. 02/27/23 22:05 02/27/23 22:05 Lab Results 02/27/23 02/27/23 02/27/23 Range/Units 21:51 22:05 22:05 WBC 13.65 H (4.8-10.8) K/ul RBC 4.63 (4.20-5.40) M/uL Hgb 13.8 (12.0-16.0) g/dl Hct 41.6 (37.0-47.0) % MCV 89.8 (80.0-100.0) fL MCH 29.8 (25.0-34.0) pg MCHC 33.2 (32.0-36.0) g/dL RDW Std Deviation 43.6 (36.4-46.3) fL RDW Coeff of Liat 13.2 (11.5-14.5) % Plt Count 283 (130-400) K/uL MPV 9.4 (9.4-12.4) fL Immature Gran % (Auto) 0.4 % Neut % (Auto) 67.2 % Lymph % (Auto) 24.0 % [place] % (Auto) 6.4 % Eos % (Auto) 1.6 % Baso % (Auto) 0.4 % Neut # (Auto) 9.15 H (1.40-6.50) K/uL Lymph # (Auto) 3.28 (1.2-3.4) K/uL [place] # (Auto) 0.88 H (0.11-0.59) K/uL Eos # (Auto) 0.22 (0-0.50) K/uL Baso # (Auto) 0.06 (0-0.2) K/uL Immature Gran # (Auto) 0.06 (0.01-0.20) K/uL ESR 72 H (0-30) mm/hr Sodium 138 (136-145) mmol/L Potassium 3.7 (3.5-5.1) mmol/L Chloride 104 (98-107) mmol/L Carbon Dioxide 25 (21-32) mmol/L Anion Gap 9 (3-11) BUN 8 (6-23) mg/dl Creatinine 0.84 (0.6-1.2) mg/dl Est Cr Clr Drug Dosing 95.6 ml/min Est GFR ( Amer) 93.9 ml/min Est GFR (Non-Af Amer) 81.0 ml/min BUN/Creatinine Ratio 9.5 L (10-20) Glucose 99 (70-99(Fasting)) mg/dl Lactate (0.4-2.0) mmol/L Calcium 9.4 (8.6-10.3) mg/dl Magnesium 2.0 (1.7-2.4) mg/dl Total Bilirubin 0.5 (0.2-1.0) mg/dl AST 15 (13-39) U/L ALT 20 (7-52) U/L Alkaline Phosphatase 75 (34-104) U/L C-Reactive Protein 5.15 H (0-0.5) mg/dl Total Protein 7.6 (6.0-8.3) gm/dl Albumin 4.2 (3.4-5.0) gm/dl Globulin 3.4 (2.5-4.0) gm/dl Albumin/Globulin Ratio 1.2 (0.9-2) Lipase 11 (11-82) U/L HCG, Qual (Negative) Urine Color Urine Appearance (Clear) Urine pH (4.5-7.5) Ur Specific [place] (1.000-1.030) Urine Protein (Negative) Urine Glucose (UA) (Negative) Urine Ketones (Negative) Urine Blood (Negative) Urine Nitrite (Negative) Urine Bilirubin (Negative) Urine Urobilinogen (Negative) Ur Leukocyte Esterase (Negative) SARS-CoV-2, RNA, NAAT (NEGATIVE) 02/27/23 02/27/23 02/27/23 Range/Units 22:05 22:23 22:23 WBC (4.8-10.8) K/ul RBC (4.20-5.40) M/uL Hgb (12.0-16.0) g/dl Hct (37.0-47.0) % MCV (80.0-100.0) fL MCH (25.0-34.0) pg MCHC (32.0-36.0) g/dL RDW Std Deviation (36.4-46.3) fL RDW Coeff of Liat (11.5-14.5) % Plt Count (130-400) K/uL MPV (9.4-12.4) fL Immature Gran % (Auto) % Neut % (Auto) % Lymph % (Auto) % [place] % (Auto) % Eos % (Auto) % Baso % (Auto) % Neut # (Auto) (1.40-6.50) K/uL Lymph # (Auto) (1.2-3.4) K/uL [place] # (Auto) (0.11-0.59) K/uL Eos # (Auto) (0-0.50) K/uL Baso # (Auto) (0-0.2) K/uL Immature Gran # (Auto) (0.01-0.20) K/uL ESR (0-30) mm/hr Sodium (136-145) mmol/L Potassium (3.5-5.1) mmol/L Chloride (98-107) mmol/L Carbon Dioxide (21-32) mmol/L Anion Gap (3-11) BUN (6-23) mg/dl Creatinine (0.6-1.2) mg/dl Est Cr Clr Drug Dosing ml/min Est GFR ( Amer) ml/min Est GFR (Non-Af Amer) ml/min BUN/Creatinine Ratio (10-20) Glucose (70-99(Fasting)) mg/dl Lactate 1.0 (0.4-2.0) mmol/L Calcium (8.6-10.3) mg/dl Magnesium (1.7-2.4) mg/dl Total Bilirubin (0.2-1.0) mg/dl AST (13-39) U/L ALT (7-52) U/L Alkaline Phosphatase (34-104) U/L C-Reactive Protein (0-0.5) mg/dl Total Protein (6.0-8.3) gm/dl Albumin (3.4-5.0) gm/dl Globulin (2.5-4.0) gm/dl Albumin/Globulin Ratio (0.9-2) Lipase (11-82) U/L HCG, Qual Negative (Negative) Urine Color Urine Appearance (Clear) Urine pH (4.5-7.5) Ur Specific [place] (1.000-1.030) Urine Protein (Negative) Urine Glucose (UA) (Negative) Urine Ketones (Negative) Urine Blood (Negative) Urine Nitrite (Negative) Urine Bilirubin (Negative) Urine Urobilinogen (Negative) Ur Leukocyte Esterase (Negative) SARS-CoV-2, RNA, NAAT NEGATIVE (NEGATIVE) 02/27/23 Range/Units 23:05 WBC (4.8-10.8) K/ul RBC (4.20-5.40) M/uL Hgb (12.0-16.0) g/dl Hct (37.0-47.0) % MCV (80.0-100.0) fL MCH (25.0-34.0) pg MCHC (32.0-36.0) g/dL RDW Std Deviation (36.4-46.3) fL RDW Coeff of Liat (11.5-14.5) % Plt Count (130-400) K/uL MPV (9.4-12.4) fL Immature Gran % (Auto) % Neut % (Auto) % Lymph % (Auto) % [place] % (Auto) % Eos % (Auto) % Baso % (Auto) % Neut # (Auto) (1.40-6.50) K/uL Lymph # (Auto) (1.2-3.4) K/uL [place] # (Auto) (0.11-0.59) K/uL Eos # (Auto) (0-0.50) K/uL Baso # (Auto) (0-0.2) K/uL Immature Gran # (Auto) (0.01-0.20) K/uL ESR (0-30) mm/hr Sodium (136-145) mmol/L Potassium (3.5-5.1) mmol/L Chloride (98-107) mmol/L Carbon Dioxide (21-32) mmol/L Anion Gap (3-11) BUN (6-23) mg/dl Creatinine (0.6-1.2) mg/dl Est Cr Clr Drug Dosing ml/min Est GFR ( Amer) ml/min Est GFR (Non-Af Amer) ml/min BUN/Creatinine Ratio (10-20) Glucose (70-99(Fasting)) mg/dl Lactate (0.4-2.0) mmol/L Calcium (8.6-10.3) mg/dl Magnesium (1.7-2.4) mg/dl Total Bilirubin (0.2-1.0) mg/dl AST (13-39) U/L ALT (7-52) U/L Alkaline Phosphatase (34-104) U/L C-Reactive Protein (0-0.5) mg/dl Total Protein (6.0-8.3) gm/dl Albumin (3.4-5.0) gm/dl Globulin (2.5-4.0) gm/dl Albumin/Globulin Ratio (0.9-2) Lipase (11-82) U/L HCG, Qual (Negative) Urine Color Yellow Urine Appearance Clear (Clear) Urine pH 6.0 (4.5-7.5) Ur Specific [place] 1.004 (1.000-1.030) Urine Protein Negative (Negative) Urine Glucose (UA) Negative (Negative) Urine Ketones Negative (Negative) Urine Blood Negative (Negative) Urine Nitrite Negative (Negative) Urine Bilirubin Negative (Negative) Urine Urobilinogen Negative (Negative) Ur Leukocyte Esterase Negative (Negative) SARS-CoV-2, RNA, NAAT (NEGATIVE) Imaging Data Radiologist's Impression: Abdomen/Pelvis CT 02/27/23 21:51 Exam(s): CT ABDOMEN + PELVIS With Contrast IV Amt: 91ml Optiray 320 EXAM: CT Abdomen and Pelvis With Intravenous Contrast CLINICAL HISTORY: Reason for exam: LLQ pain, fever, h/o recurrent diverticulitis. TECHNIQUE: Axial computed tomography images of the abdomen and pelvis with intravenous contrast. CTDI is 23.23 mGy and DLP is 1198.94 mGy-cm. Automated exposure control was utilized for the study. A dose lowering technique was utilized adhering to the principles of ALARA. CONTRAST: Patient received 91ml Optiray 320 of IV contrast COMPARISON: No relevant prior studies available. FINDINGS: Lung bases: Unremarkable. No mass. No consolidation. ABDOMEN: Liver: Unremarkable. No mass. Gallbladder and bile ducts: The patient is status post cholecystectomy. No ductal dilation. Pancreas: Unremarkable. No mass. No ductal dilation. Spleen: Unremarkable. No splenomegaly. Adrenals: Unremarkable. No mass. Kidneys and ureters: Unremarkable. No solid mass. No hydronephrosis. Stomach and bowel: There is mild diverticulitis at the splenic flexure. There is scattered colonic diverticula. The patient is status post partial colectomy. No obstruction. PELVIS: Appendix: The patient is status post appendectomy. Bladder: Unremarkable. No mass. Reproductive: Unremarkable as visualized. ABDOMEN and PELVIS: Intraperitoneal space: Unremarkable. No free air. No significant fluid collection. Bones/joints: No acute fracture. No dislocation. Soft tissues: Unremarkable. Vasculature: Unremarkable. No abdominal aortic aneurysm. Lymph nodes: Unremarkable. No enlarged lymph nodes. IMPRESSION: Uncomplicated diverticulitis at the splenic flexure without evidence for perforation or abscess. Electronically signed by: Polo Uribe MD 02/28/23 00:37 AM MDM Narrative I examined the patient. An IV lock was placed and labs were drawn. She was given 1 L normal saline solution bolus. She was medicated with Dilaudid 0.5 mg IV x2, Zofran 4 mg IV, and fentanyl 100 mcg IV for her pain. She was premedicated with Benadryl 15 mg IV and Solu-Medrol 40 mg IV prior to her CT scan due to her contrast allergy listed in her chart. White blood cell count was elevated at 13.65. Hemoglobin normal at 13.8. ESR elevated at 72, CRP elevated at 5.15. CMP normal. Lipase normal. Lactate x2 were normal. Serum hCG negative. Urinalysis negative for blood or infection. COVID-negative. CT scan of the abdomen pelvis with IV contrast was interpreted by myself and read by stat rad as above and shows uncomplicated diverticulitis at the splenic flexure without evidence for perforation or abscess. This is the patient's third visit to the emergency department with CT confirmed diverticulitis. She has been treated with 2 courses of Cipro and Flagyl due to her multiple medication allergies. She has now failed outpatient therapy. Therefore, I feel the patient requires admission for IV treatment of her diverticulitis. I spoke with the pharmacist in regards to appropriate therapy given her multiple medication allergies and failure of Cipro and Flagyl. She was given IV ertapenem. I spoke with the on-call hospitalist who agreed to admit the patient for further evaluation and treatment. Please refer to their dictation for further details. The patient was admitted in stable condition. Impression & Plan Acute diverticulitis Discharge Plan Visit Data Chief Complaint: Abdominal Pain Stated Complaint: EXTREME ABDOMINAL PAIN,FEVER, BLOODY STOOL, ED Provider: Noel Lozano ED Midlevel Provider: Cinthya Rosenbaum Discharge Problem: Acute diverticulitis Patient Disposition: Admitted As Inpatient Condition: Good Discharge Instructions Interventions: ED Discharge Assessment Last Done: 02/28/23 02:10
[2023-02-27] MEDS ORDERED: SODIUM CHLORIDE 0.9% 1000ML 1,000 ML IV STA (21:51)
[2023-02-27] MEDS ORDERED: diphenhydrAMINE 50 MG/ML VIAL IV ONE (21:51)
[2023-02-27] MEDS ORDERED: ONDANSETRON INJ 2 MG/ML 2 ML VIAL IV STA (21:51)
[2023-02-27] MEDS ORDERED: HYDROmorphone INJ 0.5 MG/0.5 ML SYR IV STA (21:51)
[2023-02-27 22:51] LABS: Basophils # (auto) 0.06 K/uL (0-0.2); Basophils % (auto) 0.4 %; Eosinophils # (auto) 0.22 K/uL (0-0.50); Eosinophils % (auto) 1.6 %; Hematocrit (blood only) 41.6 % (37.0-47.0); Hemoglobin 13.8 g/dl (12.0-16.0); Immature Granulocytes # (auto) 0.06 K/uL (0.01-0.20); Immature Granulocytes % (auto) 0.4 %; Lymphocytes # (auto) 3.28 K/uL (1.2-3.4); Mean Corpuscular Hemoglobin 29.8 pg (25.0-34.0); Mean Corpuscular Hgb Conc 33.2 g/dL (32.0-36.0); Mean Corpuscular Volume 89.8 fL (80.0-100.0); Mean Platelet Volume 9.4 fL (9.4-12.4); Monocytes # (auto) 0.88 K/uL (0.11-0.59); Monocytes % (auto) 6.4 %; Neutrophils # (auto) 9.15 K/uL (1.40-6.50); Neutrophils % (auto) 67.2 %; Platelet Count 283 K/uL (130-400); RDW Coefficient of Variation 13.2 % (11.5-14.5); RDW Standard Deviation 43.6 fL (36.4-46.3); Red Blood Count 4.63 M/uL (4.20-5.40); White Blood Count 13.65 K/ul (4.8-10.8)
[2023-02-27 22:55] LABS: Albumin Globulin Ratio 1.2 (0.9-2); Albumin Level 4.2 gm/dl (3.4-5.0); BUN Creatinine Ratio 9.5 (10-20); Bilirubin,Total 0.5 mg/dl (0.2-1.0); C Reactive Protein 5.15 mg/dl (0-0.5); Calcium 9.4 mg/dl (8.6-10.3); Creatinine Clr Calc Pharmacy 95.6 ml/min; Est GFR (African American) 93.9 ml/min; Globulin 3.4 gm/dl (2.5-4.0); Potassium 3.7 mmol/L (3.5-5.1); Total Protein 7.6 gm/dl (6.0-8.3)
[2023-02-27 23:06] LABS: Pregnancy Test, Serum Negative (Negative)
[2023-02-27 23:15] LABS: Appearance Urine Clear (Clear); Bilirubin Urine Negative (Negative); Blood Urine Negative (Negative); Color Urine Yellow; Glucose Urine UA Negative (Negative); Ketones Urine Negative (Negative); Leukocyte Esterase Urine Negative (Negative); Nitrite Urine Negative (Negative); Protein Urine Negative (Negative); Specific Gravity Urine 1.004 (1.000-1.030); Urobilinogen Urine Negative (Negative)
[2023-02-27] MEDS ORDERED: OPTIRAY 320 100ml IV ONE (23:21)
[2023-02-27] MEDS ORDERED: fentaNYL citrate PF 100 MCG/2 ML VIAL IV STA (23:48)
[2023-02-28] MEDS ORDERED: ERTAPENEM SODIUM 10 ML IV STA (00:08)
--- NOTE | 2023-02-28 00:37 | CT Scan Report ---
Exam(s): CT ABDOMEN + PELVIS With Contrast IV Amt: 91ml Optiray 320 EXAM: CT Abdomen and Pelvis With Intravenous Contrast CLINICAL HISTORY: Reason for exam: LLQ pain, fever, h/o recurrent diverticulitis. TECHNIQUE: Axial computed tomography images of the abdomen and pelvis with intravenous contrast. CTDI is 23.23 mGy and DLP is 1198.94 mGy-cm. Automated exposure control was utilized for the study. A dose lowering technique was utilized adhering to the principles of ALARA. CONTRAST: Patient received 91ml Optiray 320 of IV contrast COMPARISON: No relevant prior studies available. FINDINGS: Lung bases: Unremarkable. No mass. No consolidation. ABDOMEN: Liver: Unremarkable. No mass. Gallbladder and bile ducts: The patient is status post cholecystectomy. No ductal dilation. Pancreas: Unremarkable. No mass. No ductal dilation. Spleen: Unremarkable. No splenomegaly. Adrenals: Unremarkable. No mass. Kidneys and ureters: Unremarkable. No solid mass. No hydronephrosis. Stomach and bowel: There is mild diverticulitis at the splenic flexure. There is scattered colonic diverticula. The patient is status post partial colectomy. No obstruction. PELVIS: Appendix: The patient is status post appendectomy. Bladder: Unremarkable. No mass. Reproductive: Unremarkable as visualized. ABDOMEN and PELVIS: Intraperitoneal space: Unremarkable. No free air. No significant fluid collection. Bones/joints: No acute fracture. No dislocation. Soft tissues: Unremarkable. Vasculature: Unremarkable. No abdominal aortic aneurysm. Lymph nodes: Unremarkable. No enlarged lymph nodes. IMPRESSION: Uncomplicated diverticulitis at the splenic flexure without evidence for perforation or abscess. Electronically signed by: Polo Uribe MD 02/28/23 00:37 AM
[2023-02-28] MEDS ORDERED: lisinopril 2.5 MG TAB PO ONE (00:40)
[2023-02-28] MEDS ORDERED: LACTATED RINGER'S 1,000 ML IV ONE (00:59)
--- NOTE | 2023-02-28 01:12 | History & Physical Report ---
Date of Service February 28, 2023 Assessment & Plan (1) Sepsis: Plan: Secondary to recurrent diverticulitis hx bowel surgery as per records Failed outpatient treatment Rule out recurrent C. difficile given recent antibiotic Rx Hypertensive urgency secondary to discomfort Possible chronic BP elevation given LVH on 2D echo from 2018 LGIB secondary to diverticulitis Patient currently hemodynamically stable. hx TIA as per records hx IBS/GERD/gastroparesis as per records anxiety/mood disorder, stable as per patient ongoing tobacco abuse Medical telemetry given BP elevation Initiate lisinopril CS, Ertapenem Stool C. difficile GI consult Re: Recurrent diverticulitis Nicotine patch DVT prophylaxis. Follow H&H, transfuse PRBC if hemoglobin less than 8 and for symptomatic anemia (hx TIA as per records) SCDs Re: L GIB Full code Text document was generated using [employer] voice recognition software. It may contain grammatical or spelling errors. Kindly contact undersigned for clarification of any documentation item in question. History of Present Illness Chief Complaint: worsening abdominal pain Primary Care Provider: Holland Naik MD History obtained from patient and records. Medical history significant for history TIA as per records, recurrent diverticulitis status post bowel surgery, history C. difficile, IBS, GERD, gastroparesis as per records, hyperlipidemia, anxiety/mood disorder, ongoing tobacco abuse. Last [facility] confinement June 2020 for acute diverticulitis. Recent confinement at [facility] June 2023 for acute diverticulitis. 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 3 ER visits last month for abdominal pain reminiscent of diverticulitis attacks. Diverticulitis noted on CT abdomen pelvis last February 10 visit. Patient discharged on antibiotic course. Patient returned to ER last February 16 secondary to worsening symptoms. Patient discharged home with note of improving diverticulitis on CAT scan. 3 days ago, patient had recurrence of achy lower abdominal pain with fever and bloody diarrhea symptoms. No chest pain, no SOB, no headache symptoms. Patient returned to ER. IV Ertapenem given for recurrent diverticulitis. 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 ketorolac Allergy Severe HIVES/DIFFICULTY Verified 02/27/23 22:15 BREATHING moxifloxacin Allergy Severe Shortness Verified 02/27/23 22:15 of breath/dizziness Penicillins Allergy Severe Anaphylaxis Verified 02/27/23 22:15 /HIVES Sulfa (Sulfonamide Allergy Severe Shortness Verified 02/27/23 22:15 Antibiotics) of breath and hives tramadol Allergy Severe HIVES/DIFFICULTY Verified 02/27/23 22:15 BREATHING aspirin Allergy Unknown Unknown Verified 02/27/23 22:15 dicyclomine [From Bentyl] AdvReac Intermediate Constipatio Verified 02/27/23 22:15 n haloperidol AdvReac Intermediate "KEEPS ME Verified 02/27/23 22:15 AWAKE, CAN'T SLEEP". hydrocodone AdvReac Vomiting Verified 02/27/23 22:16 prochlorperazine AdvReac MOTOR Unverified 07/04/20 18:19 RESTLESSNESS Home Medications Medication Instructions Recorded Confirmed Type albuterol sulfate 90 mcg/actuation 2 puff inhalation Q4H PRN 07/23/18 02/27/23 History aerosol inhaler (Ventolin HFA) Shortness Of Breath Or Wheezing clonazepam 1 mg tablet 1 mg PO BID PRN Anxiety 07/23/18 02/27/23 History epinephrine 0.3 mg/0.3 mL 0.3 mg IM DIRECTED PRN Allergic 07/23/18 02/27/23 History injection, auto-injector (EpiPen Reaction 2-Cisco) venlafaxine 150 mg 300 mg PO HS 07/23/18 02/27/23 History capsule,extended release 24 hr ondansetron 4 mg disintegrating 4 mg PO Q6H PRN nausea and 02/10/23 02/27/23 Rx tablet vomiting #15 tabs acetaminophen 500 mg tablet 1,000 mg PO QID PRN Pain 02/27/23 02/27/23 History Past Med/Surg History Medical History (Updated 02/28/23 @ 03:43 by Cinthya Rosenbaum PA-C) Asthma Depression Facial pain DWAYNE (generalized anxiety disorder) Gastroparesis Generalized pruritus GERD (gastroesophageal reflux disease) History of Clostridium difficile colitis HLD (hyperlipidemia) IBS (irritable bowel syndrome) Migraine Osteomyelitis Pancreatitis Squamous cell carcinoma of left shoulder Suicide attempt by drug ingestion On 04/21/16 10:30 Helene Rene wrote "03/22/2016" TIA (transient ischemic attack) Surgical History H/O colonoscopy H/O esophagogastroduodenoscopy H/O tubal ligation H/O unilateral oophorectomy History of colectomy due to diverticulitis 2008, Dr. 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 Required: No Beliefs That Will Affect Care: None Current Living Situation: Alone Feels Safe at Home: Yes Assistive Devices: None Review of Systems Review of Systems: As per HPI, all other systems reviewed and negative Physical Exam Physical Exam: GENERAL: Comfortable, obese, no respiratory distress SKIN: Normal color, warm HEENT: [place] palpebral conjunctivae, no ptosis, moist buccal mucosa NECK : Supple, short neck, no tenderness CHEST : CTA, no tenderness HEART : RRR, no obvious murmurs ABDOMEN: Some distention, hypogastric tenderness EXTREMITIES : No LE swelling/tenderness, no other conspicuous deformities noted NEUROLOGIC : Coherent, no facial asymmetry, no other gross focality Results & Data Results & Data Vital Signs (Past 12 Hours) Vital Signs Temp Pulse Pulse Resp BP BP Pulse Ox 02/27/23 23:23 96 H 02/27/23 23:30 95 H 19 176/105 H 94 02/27/23 23:23 95 H 17 92 02/27/23 23:47 95 02/27/23 22:54 94 H 20 180/96 H 98 02/27/23 20:48 36.9 C 118 H 25 H 159/108 H 96 O2 Del Method 02/27/23 23:23 02/27/23 23:30 Room Air 02/27/23 23:23 Room Air 02/27/23 23:47 Room Air 02/27/23 22:54 Room Air 02/27/23 20:48 Room Air Laboratory Results Laboratory Results WBC 13.65 K/ul (4.8-10.8) H 02/27/23 22:05 RBC 4.63 M/uL (4.20-5.40) 02/27/23 22:05 Hgb 13.8 g/dl (12.0-16.0) 02/27/23 22:05 Hct 41.6 % (37.0-47.0) 02/27/23 22:05 MCV 89.8 fL (80.0-100.0) 02/27/23 22:05 MCH 29.8 pg (25.0-34.0) 02/27/23 22:05 MCHC 33.2 g/dL (32.0-36.0) 02/27/23 22:05 RDW Std Deviation 43.6 fL (36.4-46.3) 02/27/23 22:05 RDW Coeff of [place] 13.2 % (11.5-14.5) 02/27/23 22:05 Plt Count 283 K/uL (130-400) 02/27/23 22:05 MPV 9.4 fL (9.4-12.4) 02/27/23 22:05 Immature Gran % (Auto) 0.4 % 02/27/23 22:05 Neut % (Auto) 67.2 % 02/27/23 22:05 Lymph % (Auto) 24.0 % 02/27/23 22:05 [place] % (Auto) 6.4 % 02/27/23 22:05 Eos % (Auto) 1.6 % 02/27/23 22:05 Baso % (Auto) 0.4 % 02/27/23 22:05 Neut # (Auto) 9.15 K/uL (1.40-6.50) H 02/27/23 22:05 Lymph # (Auto) 3.28 K/uL (1.2-3.4) 02/27/23 22:05 [place] # (Auto) 0.88 K/uL (0.11-0.59) H 02/27/23 22:05 Eos # (Auto) 0.22 K/uL (0-0.50) 02/27/23 22:05 Baso # (Auto) 0.06 K/uL (0-0.2) 02/27/23 22:05 Immature Gran # (Auto) 0.06 K/uL (0.01-0.20) 02/27/23 22:05 ESR 72 mm/hr (0-30) H 02/27/23 21:51 Sodium 138 mmol/L (136-145) 02/27/23 22:05 Potassium 3.7 mmol/L (3.5-5.1) 02/27/23 22:05 Chloride 104 mmol/L (98-107) 02/27/23 22:05 Carbon Dioxide 25 mmol/L (21-32) 02/27/23 22:05 Anion Gap 9 (3-11) 02/27/23 22:05 BUN 8 mg/dl (6-23) 02/27/23 22:05 Creatinine 0.84 mg/dl (0.6-1.2) 02/27/23 22:05 Est Cr Clr Drug Dosing 95.6 ml/min 02/27/23 22:05 Est GFR ( Amer) 93.9 ml/min 02/27/23 22:05 Est GFR (Non-Af Amer) 81.0 ml/min 02/27/23 22:05 BUN/Creatinine Ratio 9.5 (10-20) L 02/27/23 22:05 Glucose 99 mg/dl (70-99(Fasting)) 02/27/23 22:05 Lactate 1.0 mmol/L (0.4-2.0) 02/27/23 22:23 Calcium 9.4 mg/dl (8.6-10.3) 02/27/23 22:05 Total Bilirubin 0.5 mg/dl (0.2-1.0) 02/27/23 22:05 AST 15 U/L (13-39) 02/27/23 22:05 ALT 20 U/L (7-52) 02/27/23 22:05 Alkaline Phosphatase 75 U/L (34-104) 02/27/23 22:05 C-Reactive Protein 5.15 mg/dl (0-0.5) H 02/27/23 22:05 Total Protein 7.6 gm/dl (6.0-8.3) 02/27/23 22:05 Albumin 4.2 gm/dl (3.4-5.0) 02/27/23 22:05 Globulin 3.4 gm/dl (2.5-4.0) 02/27/23 22:05 Albumin/Globulin Ratio 1.2 (0.9-2) 02/27/23 22:05 Lipase 11 U/L (11-82) 02/27/23 22:05 HCG, Qual Negative (Negative) 02/27/23 22:05 Urine Color Yellow 02/27/23 23:05 Urine Appearance Clear (Clear) 02/27/23 23:05 Urine pH 6.0 (4.5-7.5) 02/27/23 23:05 Ur Specific [place] 1.004 (1.000-1.030) 02/27/23 23:05 Urine Protein Negative (Negative) 02/27/23 23:05 Urine Glucose (UA) Negative (Negative) 02/27/23 23:05 Urine Ketones Negative (Negative) 02/27/23 23:05 Urine Blood Negative (Negative) 02/27/23 23:05 Urine Nitrite Negative (Negative) 02/27/23 23:05 Urine Bilirubin Negative (Negative) 02/27/23 23:05 Urine Urobilinogen Negative (Negative) 02/27/23 23:05 Ur Leukocyte Esterase Negative (Negative) 02/27/23 23:05 SARS-CoV-2, RNA, NAAT NEGATIVE (NEGATIVE) 02/27/23 22:23 Impressions Abdomen/Pelvis CT 02/27/23 21:51 Exam(s): CT ABDOMEN + PELVIS With Contrast IV Amt: 91ml Optiray 320 EXAM: CT Abdomen and Pelvis With Intravenous Contrast CLINICAL HISTORY: Reason for exam: LLQ pain, fever, h/o recurrent diverticulitis. TECHNIQUE: Axial computed tomography images of the abdomen and pelvis with intravenous contrast. CTDI is 23.23 mGy and DLP is 1198.94 mGy-cm. Automated exposure control was utilized for the study. A dose lowering technique was utilized adhering to the principles of ALARA. CONTRAST: Patient received 91ml Optiray 320 of IV contrast COMPARISON: No relevant prior studies available. FINDINGS: Lung bases: Unremarkable. No mass. No consolidation. ABDOMEN: Liver: Unremarkable. No mass. Gallbladder and bile ducts: The patient is status post cholecystectomy. No ductal dilation. Pancreas: Unremarkable. No mass. No ductal dilation. Spleen: Unremarkable. No splenomegaly. Adrenals: Unremarkable. No mass. Kidneys and ureters: Unremarkable. No solid mass. No hydronephrosis. Stomach and bowel: There is mild diverticulitis at the splenic flexure. There is scattered colonic diverticula. The patient is status post partial colectomy. No obstruction. PELVIS: Appendix: The patient is status post appendectomy. Bladder: Unremarkable. No mass. Reproductive: Unremarkable as visualized. ABDOMEN and PELVIS: Intraperitoneal space: Unremarkable. No free air. No significant fluid collection. Bones/joints: No acute fracture. No dislocation. Soft tissues: Unremarkable. Vasculature: Unremarkable. No abdominal aortic aneurysm. Lymph nodes: Unremarkable. No enlarged lymph nodes. IMPRESSION: Uncomplicated diverticulitis at the splenic flexure without evidence for perforation or abscess. Electronically signed by: Polo Uribe MD 02/28/23 00:37 AM
[2023-02-28] MEDS ORDERED: LORazepam 2 MG/1 ML VIAL IV PRN (01:17)
[2023-02-28] MEDS ORDERED: clonazePAM 1 MG TAB PO PRN (02:26)
[2023-02-28] MEDS: MoRPHine SULFATE 4 MG/ML 1 ML CARP\\VIAL IV PRN ×7 (02:41→23:41)
[2023-02-28 07:58] LABS: Basophils # (auto) 0.03 K/uL (0-0.2); Basophils % (auto) 0.4 %; Hematocrit (blood only) 41.5 % (37.0-47.0); Hemoglobin 13.6 g/dl (12.0-16.0); Immature Granulocytes # (auto) 0.02 K/uL (0.01-0.20); Immature Granulocytes % (auto) 0.2 %; Lymphocytes # (auto) 1.25 K/uL (1.2-3.4); Lymphocytes % (auto) 14.9 %; Mean Corpuscular Hemoglobin 30.1 pg (25.0-34.0); Mean Corpuscular Hgb Conc 32.8 g/dL (32.0-36.0); Mean Corpuscular Volume 91.8 fL (80.0-100.0); Mean Platelet Volume 9.5 fL (9.4-12.4); Monocytes # (auto) 0.09 K/uL (0.11-0.59); Monocytes % (auto) 1.1 %; Neutrophils # (auto) 7.02 K/uL (1.40-6.50); Neutrophils % (auto) 83.4 %; Platelet Count 283 K/uL (130-400); RDW Coefficient of Variation 13.1 % (11.5-14.5); RDW Standard Deviation 44.2 fL (36.4-46.3); Red Blood Count 4.52 M/uL (4.20-5.40); White Blood Count 8.41 K/ul (4.8-10.8)
[2023-02-28 08:09] LABS: BUN Creatinine Ratio 8.6 (10-20); Calcium 8.8 mg/dl (8.6-10.3); Creatinine Clr Calc Pharmacy 99.1 ml/min; Est GFR (African American) 98.2 ml/min; Est GFR (Non-African American) 84.7 ml/min; Potassium 4.6 mmol/L (3.5-5.1)
[2023-02-28] MEDS: NICOTINE 14 MG/24 HR PATCH TD SCH (08:26)
[2023-02-28] MEDS: oxyCODONE HCL IR 5 MG TAB (IMMEDIATE RELEASE) PO PRN (08:27)
[2023-02-28] MEDS: ONDANSETRON INJ 2 MG/ML 2 ML VIAL IV PRN ×2 (10:52→17:06)
[2023-02-28] MEDS ORDERED: NICOTINE 14 MG/24 HR PATCH TD ONE (12:00)
--- NOTE | 2023-02-28 13:10 | Gastrointestinal Consultation ---
Date of Consultation February 28, 2023 Assessment & Plan (1) Diverticulitis: Pt is a 52 yo female w recurrent, uncomplicated diverticulitis. - Ertapenem IV; continue antibx coverage for 10 days total - Advance diet as tolerated - OP colonoscopy in 4 to 6 week - She is interested to be referred to a Colorectal surgeon but also does have a general surgeon she follows with in [place] (Dr. Grullon). - GI to sign off; pls recall prn Supervising Physician Co-Signing Physician Notes Patient was seen and examined on 02/28 with SHRUTI Quintana whose note reflects our findings and plan. History of Present Illness Reason for Consultation: Recurrent diverticulitis Requesting Physician: Dr. Taylor Hoffman Attending Physician: Dr. Anuja Peck History of Present Illness Pt is a 52 yo female w PMHx of TIA, recurrent diverticulitis s/p partial colectomy, Cdiff, IBS, GERD, gastroparesis, HLD, anxiety/mood disorder, ongoing tobacco abuse who presented to ED yesterday w c/o fever, lower abd pain and bloody diarrhea. She had diverticulitis 06/2023 for which she was hospitalized on [facility]. 3 ED visits here within the last month for abd pain symptoms and diverticulitis noted on CT scans. Was most recently treated with Cipro/Flagyl and her admission CT scan showed uncomplicated diverticulitis on splenic flexure wo abscess or perforation. She denies fever overnight, CP, SOB. Is having less lower abd pain. No more BM this AM. Her last colonoscopy was in 2014. She follows with a surgeon, Dr. Grullon, in [place]. Allergies Allergy/AdvReac Type Severity Reaction Status Date / Time ibuprofen Allergy Severe Shortness Verified 02/27/23 22:15 of breath and hives Iodinated Contrast Media Allergy Severe HIVES PER Verified 02/27/23 22:15 GMG--PER PT "NOT AN ALLERGY". ketorolac Allergy Severe HIVES/DIFFICULTY Verified 02/27/23 22:15 BREATHING moxifloxacin Allergy Severe Shortness Verified 02/27/23 22:15 of breath/dizziness Penicillins Allergy Severe Anaphylaxis Verified 02/27/23 22:15 /HIVES Sulfa (Sulfonamide Allergy Severe Shortness Verified 02/27/23 22:15 Antibiotics) of breath and hives tramadol Allergy Severe HIVES/DIFFICULTY Verified 02/27/23 22:15 BREATHING aspirin Allergy Unknown Unknown Verified 02/27/23 22:15 dicyclomine [From Bentyl] AdvReac Intermediate Constipatio Verified 02/27/23 22:15 n haloperidol AdvReac Intermediate "KEEPS ME Verified 02/27/23 22:15 AWAKE, CAN'T SLEEP". hydrocodone AdvReac Vomiting Verified 02/27/23 22:16 prochlorperazine AdvReac MOTOR Unverified 07/04/20 18:19 RESTLESSNESS Home Medications Medication Instructions Recorded Confirmed Type albuterol sulfate 90 mcg/actuation 2 puff inhalation Q4H PRN 07/23/18 02/27/23 History aerosol inhaler (Ventolin HFA) Shortness Of Breath Or Wheezing clonazepam 1 mg tablet 1 mg PO BID PRN Anxiety 07/23/18 02/27/23 History epinephrine 0.3 mg/0.3 mL 0.3 mg IM DIRECTED PRN Allergic 07/23/18 02/27/23 History injection, auto-injector (EpiPen Reaction 2-Cisco) venlafaxine 150 mg 300 mg PO HS 07/23/18 02/27/23 History capsule,extended release 24 hr ondansetron 4 mg disintegrating 4 mg PO Q6H PRN nausea and 02/10/23 02/27/23 Rx tablet vomiting #15 tabs acetaminophen 500 mg tablet 1,000 mg PO QID PRN Pain 02/27/23 02/27/23 History Patient History Medical History (Updated 02/28/23 @ 03:43 by Cinthya Rosenbaum PA-C) Asthma Depression Facial pain DWAYNE (generalized anxiety disorder) Gastroparesis Generalized pruritus GERD (gastroesophageal reflux disease) History of Clostridium difficile colitis HLD (hyperlipidemia) IBS (irritable bowel syndrome) Migraine Osteomyelitis Pancreatitis Squamous cell carcinoma of left shoulder Suicide attempt by drug ingestion On 04/21/16 10:30 Helene Rene wrote "03/22/2016" TIA (transient ischemic attack) Surgical History H/O colonoscopy H/O esophagogastroduodenoscopy H/O tubal ligation H/O unilateral oophorectomy History of colectomy due to diverticulitis 2008, Dr. Mancuso 2009 Hx of appendectomy Hx of tonsillectomy S/P cholecystectomy S/P MARLON (total abdominal hysterectomy) Family History Father Type 2 diabetes mellitus Mother Myocardial infarction Social History Smoking Status: Current every day smoker Tobacco Type: Cigarettes Cigarettes Per Day: 10; Second Hand Exposure: Yes; Do You Dip or Chew Tobacco: No; Hx Alcohol Use: No Hx Substance Use: No Preferred Language: Turkish Communication Ability: Effective Patient Access Director Required: No Beliefs That Will Affect Care: None Current Living Situation: Alone Feels Safe at Home: Yes Safety Concerns: Feels Safe At This Time Assistive Devices: Glasses Review of Systems Review of Systems: All systems reviewed & are unremarkable except as noted in HPI & below Physical Exam Constitutional: WD/WN, vitals as above well groomed, cooperative and comfortable Eyes: PERRL, conjunctivae normal, anicteric sclerae ENMT: external ear and nose normal, oropharynx normal Respiratory: normal respiratory effort, lungs clear to auscultation Cardiovascular: RRR, no murmur, no edema Gastrointestinal (Abdomen): LLQ abd pain, BS present, soft Skin: no rashes, warm and dry no jaundice Psychiatric: A+Ox3, euthymic affect Lymphatic: no lymphedema Results & Data Vital Signs (Past 12 Hours) Vital Signs Temp Pulse Pulse Resp BP BP BP 02/28/23 11:01 36.6 C 90 18 126/90 02/28/23 07:42 36.9 C 78 18 114/69 02/28/23 07:14 92 H 02/28/23 02:51 02/28/23 02:51 36.9 C 95 H 18 162/94 H 02/28/23 02:26 91 H 02/28/23 02:26 02/28/23 01:30 96 H 17 129/100 Pulse Ox Pulse Ox O2 Del Method O2 Del Method 02/28/23 11:01 93 Room Air 02/28/23 07:42 94 Room Air 02/28/23 07:14 02/28/23 02:51 Room Air 02/28/23 02:51 92 Room Air 02/28/23 02:26 02/28/23 02:26 92 Room Air 02/28/23 01:30 93 Room Air
--- NOTE | 2023-02-28 15:12 | Hospitalist Progress Note ---
Date of Service February 28, 2023 Assessment & Plan (1) Sepsis: Plan: Secondary to recurrent diverticulitis Multiple attacks of diverticulitis since September of last year about more than 7-8 attacks as per the patient hx bowel surgery as per records Failed outpatient treatment this attack CT of the abdomen pelvis did show uncomplicated diverticulitis at the splenic flexure without evidence of perforation or abscess Started on intravenous ertapenem Appreciate GI input and recommendation She has an appointment with the outpatient surgery in [place] and she will keep it following discharge from the hospital C. difficile toxin is pending Has been started with oral food and she has been tolerating without much difficulties No fever and or chills, he still has nausea and bowel has not moved We will observe for today if condition is better she may be going home tomorrow Hypertensive urgency secondary to discomfort Possible chronic BP elevation given LVH on 2D echo from 2019 Blood pressure is controlled now LGIB secondary to diverticulitis Patient currently hemodynamically stable. Follow H&H, transfuse PRBC if hemoglobin less than 8 and for symptomatic anemia (hx TIA as per records) Appreciate GI input and recommendation for outpatient colonoscopy in 4 to 6 weeks Has outpatient surgery appointment Dr. Whatley in [place] hx TIA as per records hx IBS/GERD/gastroparesis as per records anxiety/mood disorder, stable as per patient ongoing tobacco abuse Nicotine patch DVT prophylaxis. SCDs Re: L GIB Full code . Admission and Anticipated Discharge Date Admission Date: February 28, 2023 Subjective 02/28/2023 The patient was seen and examined in medical telemetry unit She has been having recurrent diverticulitis since September and this may be her eighth or ninth attack She does have sigmoid diverticulitis without any abscess and or perforation She has been feeling much better since admission Review of Systems Review of Systems: All systems reviewed and are unremarkable except as noted below Physical Exam Physical Exam: Sitting on the bed without any acute distress Constitutional: well developed, well nourished and + obese; not ill appearing Eyes: PERRL, conjunctivae normal, anicteric sclerae ENMT: external ear and nose normal, oropharynx normal Neck: trachea midline, no thyromegaly Respiratory: no respiratory distress Auscultation: lungs clear to auscultation bilaterally Cardiovascular: Rate/Rhythm: regular rate and regular rhythm; not tachycardic Heart Sounds: normal S1 and normal S2; no murmur Extremities: no edema Gastrointestinal (Abdomen): Inspection/Auscultation: normal bowel sounds; abdomen not distended Percussion/Palpation: abdomen soft; abdomen nontender Musculoskeletal: No acute arthritis involving any of the joint Neurologic: Alert, awake and oriented x3. No focal sensory or no motor deficit appreciated Psychiatric: A+Ox3, euthymic affect Lymphatic: no cervical or axillary lymphadenopathy Results & Data Results & Data Vital Signs (Past 12 Hours) Vital Signs Temp Pulse Pulse Resp BP Pulse Ox O2 Del Method 02/28/23 11:01 36.6 C 90 18 126/90 93 Room Air 02/28/23 07:42 36.9 C 78 18 114/69 94 Room Air 02/28/23 07:14 92 H Laboratory Results Short CBC 02/27/23 02/28/23 Range/Units 22:05 07:12 WBC 13.65 H 8.41 (4.8-10.8) K/ul Hgb 13.8 13.6 (12.0-16.0) g/dl Hct 41.6 41.5 (37.0-47.0) % Plt Count 283 283 (130-400) K/uL BMP 02/27/23 02/28/23 22:05 07:12 Sodium 138 141 Potassium 3.7 4.6 D Chloride 104 108 H Carbon Dioxide 25 27 BUN 8 7 Creatinine 0.84 0.81 Glucose 99 141 H Calcium 9.4 8.8 Liver Function 02/27/23 Range/Units 22:05 Total Bilirubin 0.5 (0.2-1.0) mg/dl AST 15 (13-39) U/L ALT 20 (7-52) U/L Alkaline Phosphatase 75 (34-104) U/L Albumin 4.2 (3.4-5.0) gm/dl Urine 02/27/23 Range/Units 23:05 Urine Color Yellow Urine Appearance Clear (Clear) Urine pH 6.0 (4.5-7.5) Ur Specific [place] 1.004 (1.000-1.030) Urine Protein Negative (Negative) Urine Glucose (UA) Negative (Negative)
[2023-02-28] MEDS: PROMETHAZINE HCL 12.5 MG in SODIUM CHLORIDE 0.9% 50 ML IV PRN (19:30)
[2023-02-28] MEDS: VENLAFAXINE HCL XR 150 MG CAPXR PO SCH (20:36)
[2023-02-28] MEDS: ERTAPENEM SODIUM 1,000 MG in SYRINGE 0 ML IV SCH (20:36)
[2023-02-28] MEDS ORDERED: lisinopril 2.5 MG TAB PO SCH (21:00)
[2023-03-01] MEDS: MoRPHine SULFATE 4 MG/ML 1 ML CARP\\VIAL IV PRN ×4 (05:51→19:41)
--- NOTE | 2023-03-01 05:58 | Electrocardiogram Report ---
Test Reason : Blood Pressure : / mmHG Vent. Rate : 088 BPM Atrial Rate : 088 BPM P-R Int : 126 ms QRS Dur : 078 ms QT Int : 348 ms P-R-T Axes : 048 060 072 degrees QTc Int : 421 ms Normal sinus rhythm Nonspecific T wave abnormality Abnormal ECG When compared with ECG of 26-JAN-2023 11:01, No significant change was found Confirmed by Lucian Yin ([id number]) on 03/01/2023 5:57:49 AM Referred By: REFERRED SELF Confirmed By:Lucian Yin
[2023-03-01 08:46] LABS: Hemoglobin 13.1 g/dl (12.0-16.0); Mean Corpuscular Hemoglobin 29.5 pg (25.0-34.0); Mean Corpuscular Volume 92.3 fL (80.0-100.0); Mean Platelet Volume 9.3 fL (9.4-12.4); Platelet Count 265 K/uL (130-400); RDW Coefficient of Variation 13.2 % (11.5-14.5); RDW Standard Deviation 44.9 fL (36.4-46.3); Red Blood Count 4.44 M/uL (4.20-5.40); White Blood Count 8.55 K/ul (4.8-10.8)
[2023-03-01] MEDS: NICOTINE 14 MG/24 HR PATCH TD SCH (08:59)
[2023-03-01 10:07] LABS: Calcium 8.6 mg/dl (8.6-10.3); Potassium 4.1 mmol/L (3.5-5.1)
[2023-03-01 10:12] LABS: BUN Creatinine Ratio 10.6 (10-20); Creatinine Clr Calc Pharmacy 86.9 ml/min; Est GFR (African American) 92.6 ml/min; Est GFR (Non-African American) 79.9 ml/min
[2023-03-01 10:14] LABS: Basophils # (auto) 0.05 K/uL (0-0.2); Basophils % (auto) 0.6 %; Eosinophils # (auto) 0.14 K/uL (0-0.50); Eosinophils % (auto) 1.6 %; Immature Granulocytes # (auto) 0.01 K/uL (0.01-0.20); Immature Granulocytes % (auto) 0.1 %; Lymphocytes # (auto) 4.65 K/uL (1.2-3.4); Lymphocytes % (auto) 54.4 %; Monocytes # (auto) 0.58 K/uL (0.11-0.59); Monocytes % (auto) 6.8 %; Neutrophils # (auto) 3.12 K/uL (1.40-6.50); Neutrophils % (auto) 36.5 %
--- NOTE | 2023-03-01 11:29 | Hospitalist Progress Note ---
Date of Service March 01, 2023 Assessment & Plan (1) Sepsis: Plan: Secondary to recurrent diverticulitis Multiple attacks of diverticulitis since September of last year about more than 7-8 attacks as per the patient hx bowel surgery as per records Failed outpatient treatment this attack CT of the abdomen pelvis did show uncomplicated diverticulitis at the splenic flexure without evidence of perforation or abscess Started on intravenous ertapenem Appreciate GI input and recommendation She has an appointment with the outpatient surgery in [place] and she will keep it following discharge from the hospital C. difficile toxin is pending Has been started with oral food and she has been tolerating without much difficulties No fever and or chills, he still has nausea and bowel has not moved Symptomatically much better with improvement of left lower quadrant pain Has been tolerating liquid diet and will advance to solid from this evening if tolerated Likely discharge tomorrow on oral antibiotic Hypertensive urgency secondary to discomfort Possible chronic BP elevation given LVH on 2D echo from 2018 Blood pressure remains elevated Will increase the lisinopril to 10 mg once a day give additional 10 mg today LGIB secondary to diverticulitis Patient currently hemodynamically stable. Follow H&H, transfuse PRBC if hemoglobin less than 8 and for symptomatic anemia (hx TIA as per records) Appreciate GI input and recommendation for outpatient colonoscopy in 4 to 6 weeks Has outpatient surgery appointment in [place] Strongly advised to keep appointment with the surgeon as an outpatient hx TIA as per records hx IBS/GERD/gastroparesis as per records anxiety/mood disorder, stable as per patient ongoing tobacco abuse Nicotine patch DVT prophylaxis. SCDs Re: L GIB Full code . Admission and Anticipated Discharge Date Admission Date: February 28, 2023 Subjective 02/28/2023 The patient was seen and examined in medical telemetry unit She has been having recurrent diverticulitis since September and this may be her eighth or ninth attack She does have sigmoid diverticulitis without any abscess and or perforation She has been feeling much better since admission 03/01/2023 The patient was seen and examined in medical telemetry unit She has been feeling much better and he still has mild pain involving the left lower quadrant No fever and no chills, no nausea and or vomiting Her bowel has not moved yet Tolerating liquid diet Review of Systems Review of Systems: All systems reviewed and are unremarkable except as noted below Physical Exam Physical Exam: Sitting on the bed without any acute distress Constitutional: well developed, well nourished and + obese; not ill appearing Eyes: PERRL, conjunctivae normal, anicteric sclerae ENMT: external ear and nose normal, oropharynx normal Neck: trachea midline, no thyromegaly Respiratory: no respiratory distress Auscultation: lungs clear to auscultation bilaterally Cardiovascular: Rate/Rhythm: regular rate and regular rhythm; not tachycardic Heart Sounds: normal S1 and normal S2; no murmur Extremities: no edema Gastrointestinal (Abdomen): Inspection/Auscultation: normal bowel sounds; abdomen not distended Percussion/Palpation: abdomen soft; abdomen nontender Musculoskeletal: No acute arthritis involving any joint Neurologic: plantar reflexes intact bilaterally and moves all extremities; no focal motor deficits Psychiatric: A+Ox3, euthymic affect Lymphatic: no cervical or axillary lymphadenopathy Results & Data Results & Data Vital Signs (Past 12 Hours) Vital Signs Temp Pulse Pulse Resp BP Pulse Ox Pulse Ox 03/01/23 11:14 36.9 C 81 18 160/102 H 93 03/01/23 07:00 92 H 03/01/23 07:59 36.7 C 88 18 135/83 91 03/01/23 03:46 36.6 C 89 16 135/81 96 03/01/23 01:48 97 02/28/23 23:54 86 O2 Del Method O2 Del Method 03/01/23 11:14 Room Air 03/01/23 07:00 03/01/23 07:59 Room Air 03/01/23 03:46 Room Air 03/01/23 01:48 Room Air 02/28/23 23:54 Laboratory Results Short CBC 03/01/23 Range/Units 08:24 WBC 8.55 (4.8-10.8) K/ul Hgb 13.1 (12.0-16.0) g/dl Hct 41.0 (37.0-47.0) % Plt Count 265 (130-400) K/uL BMP 03/01/23 08:24 Sodium 143 Potassium 4.1 Chloride 106 Carbon Dioxide 31 BUN 9 Creatinine 0.85 Glucose 106 H Calcium 8.6 Medications Administered Current Inpatient Medications Acetaminophen (Acetaminophen 325 Mg Tab) 650 mg PO Q4H PRN PRN Reason: Pain or Fever Stop: 03/30/23 02:25 Clonazepam (Clonazepam 1 Mg Tab) 1 mg PO BID PRN PRN Reason: Anxiety Stop: 03/30/23 02:25 Ertapenem 1,000 mg/ Syringe 10 mls @ 2 mls/min IV Q24H NIRAJ Stop: 03/09/23 21:59 Last Admin: 02/28/23 20:36 Dose: 2 mls/min Promethazine HCl 12.5 mg/ (Sodium Chloride) 50.5 mls @ 202 mls/hr IV Q6H PRN PRN Reason: Nausea And Vomiting Stop: 03/30/23 17:54 Last Infusion: 02/28/23 19:45 Dose: Infused Lisinopril (Lisinopril 2.5 Mg Tab) 2.5 mg PO HS NIRAJ Stop: 03/30/23 20:59 Last Admin: 02/28/23 20:36 Dose: 2.5 mg Lorazepam (Lorazepam 2 Mg/1 Ml Vial) 0.5 mg IV Q6H PRN PRN Reason: Anxiety Stop: 03/30/23 01:16 Miscellaneous (Remove Nicoderm Patch) 1 each N/A DAILY@0859 NIRAJ Stop: 03/31/23 08:58 Last Admin: 03/01/23 08:59 Dose: 1 each Morphine Sulfate (Morphine Sulfate 4 Mg/Ml 1 Ml Carp\Vial) 4 mg IV Q3H PRN PRN Reason: Pain Stop: 03/14/23 01:15 Last Admin: 03/01/23 05:51 Dose: 4 mg Nicotine (Nicotine 14 Mg/24 Hr Patch) 14 mg TD QAM NIRAJ Stop: 03/30/23 01:14 Last Admin: 03/01/23 08:59 Dose: 14 mg Ondansetron HCl (Ondansetron Inj 2 Mg/Ml 2 Ml Vial) 4 mg IV Q6H PRN PRN Reason: nv Stop: 03/30/23 01:16 Last Admin: 02/28/23 17:06 Dose: 4 mg Oxycodone HCl (Oxycodone Hcl Ir 5 Mg Tab (Immediate Release)) 5 - 10 mg PO QID PRN PRN Reason: Pain Stop: 03/14/23 01:15 Last Admin: 02/28/23 08:27 Dose: 10 mg Venlafaxine HCl (Venlafaxine Hcl Xr 150 Mg Capxr) 300 mg PO HS NIRAJ Stop: 03/30/23 20:59 Last Admin: 02/28/23 20:36 Dose: 300 mg
[2023-03-01] MEDS: ACETAMINOPHEN 325 MG TAB PO PRN (11:32)
[2023-03-01] MEDS: lisinopril 2.5 MG TAB PO SCH (12:39)
[2023-03-01] MEDS: ONDANSETRON INJ 2 MG/ML 2 ML VIAL IV PRN (15:54)
[2023-03-01] MEDS: PROMETHAZINE HCL 12.5 MG in SODIUM CHLORIDE 0.9% 50 ML IV PRN (19:54)
[2023-03-01] MEDS: VENLAFAXINE HCL XR 150 MG CAPXR PO SCH (21:17)
[2023-03-01] MEDS: ERTAPENEM SODIUM 1,000 MG in SYRINGE 0 ML IV SCH (21:17)
[2023-03-02] MEDS: ONDANSETRON INJ 2 MG/ML 2 ML VIAL IV PRN ×2 (00:50→08:53)
[2023-03-02] MEDS: MoRPHine SULFATE 4 MG/ML 1 ML CARP\\VIAL IV PRN ×3 (00:50→20:06)
[2023-03-02 08:13] LABS: Basophils # (auto) 0.05 K/uL (0-0.2); Basophils % (auto) 0.7 %; Eosinophils # (auto) 0.26 K/uL (0-0.50); Eosinophils % (auto) 3.6 %; Hematocrit (blood only) 40.2 % (37.0-47.0); Hemoglobin 13.5 g/dl (12.0-16.0); Immature Granulocytes # (auto) 0.01 K/uL (0.01-0.20); Immature Granulocytes % (auto) 0.1 %; Lymphocytes # (auto) 3.25 K/uL (1.2-3.4); Lymphocytes % (auto) 45.1 %; Mean Corpuscular Hemoglobin 30.2 pg (25.0-34.0); Mean Corpuscular Hgb Conc 33.6 g/dL (32.0-36.0); Mean Corpuscular Volume 89.9 fL (80.0-100.0); Mean Platelet Volume 9.3 fL (9.4-12.4); Monocytes # (auto) 0.47 K/uL (0.11-0.59); Monocytes % (auto) 6.5 %; Neutrophils # (auto) 3.16 K/uL (1.40-6.50); Platelet Count 288 K/uL (130-400); RDW Coefficient of Variation 12.9 % (11.5-14.5); RDW Standard Deviation 42.7 fL (36.4-46.3); Red Blood Count 4.47 M/uL (4.20-5.40)
[2023-03-02 08:41] LABS: BUN Creatinine Ratio 11.6 (10-20); Calcium 8.7 mg/dl (8.6-10.3); Creatinine Clr Calc Pharmacy 85.3 ml/min; Est GFR (African American) 91.3 ml/min; Est GFR (Non-African American) 78.8 ml/min
[2023-03-02] MEDS: lisinopril 2.5 MG TAB PO SCH (08:52)
[2023-03-02] MEDS: NICOTINE 14 MG/24 HR PATCH TD SCH (08:53)
[2023-03-02] MEDS: CIPROFLOXACIN 500 MG TAB PO SCH ×2 (12:51→21:05)
[2023-03-02] MEDS: metroNIDAZOLE 500 MG TAB PO SCH ×2 (13:06→21:05)
[2023-03-02] MEDS: oxyCODONE HCL IR 5 MG TAB (IMMEDIATE RELEASE) PO PRN ×2 (13:06→18:40)
--- NOTE | 2023-03-02 14:28 | Hospitalist Progress Note ---
Date of Service March 02, 2023 Assessment & Plan (1) Sepsis: Plan: Secondary to recurrent diverticulitis Multiple attacks of diverticulitis since September of last year about more than 7-8 attacks as per the patient hx bowel surgery as per records Failed outpatient treatment this attack CT of the abdomen pelvis did show uncomplicated diverticulitis at the splenic flexure without evidence of perforation or abscess Started on intravenous ertapenem Appreciate GI input and recommendation She has an appointment with the outpatient surgery in [place] and she will keep it following discharge from the hospital C. difficile toxin is pending Has been started with oral food and she has been tolerating without much difficulties No fever and or chills, he still has nausea and bowel has not moved Symptomatically much better with improvement of left lower quadrant pain Has been tolerating liquid diet and will advance to solid from this evening if tolerated Has been tolerating liquid diet and advance diet to solid Antibiotics have been changed to oral Cipro and Flagyl Advised to ambulate more and likely discharge tomorrow Hypertensive urgency secondary to discomfort Possible chronic BP elevation given LVH on 2D echo from 2019 Blood pressure remains elevated Will increase the lisinopril to 10 mg once a day give additional 10 mg today Blood pressure seems to be stable at 141/91 LGIB secondary to diverticulitis Patient currently hemodynamically stable. Follow H&H, transfuse PRBC if hemoglobin less than 8 and for symptomatic anemia (hx TIA as per records) Appreciate GI input and recommendation for outpatient colonoscopy in 4 to 6 weeks Has outpatient surgery appointment in [place] Strongly advised to keep appointment with the surgeon as an outpatient hx TIA as per records hx IBS/GERD/gastroparesis as per records anxiety/mood disorder, stable as per patient ongoing tobacco abuse Nicotine patch DVT prophylaxis. SCDs Re: L GIB Full code . Admission and Anticipated Discharge Date Admission Date: February 28, 2023 Subjective 02/28/2023 The patient was seen and examined in medical telemetry unit She has been having recurrent diverticulitis since September and this may be her eighth or ninth attack She does have sigmoid diverticulitis without any abscess and or perforation She has been feeling much better since admission 03/01/2023 The patient was seen and examined in medical telemetry unit She has been feeling much better and he still has mild pain involving the left lower quadrant No fever and no chills, no nausea and or vomiting Her bowel has not moved yet Tolerating liquid diet 03/02/2023 The patient was seen and examined in medical telemetry unit She still has some pain in the left lower quadrant and the bowel has not moved No fever and no chills, no nausea or vomiting Will start regular diet from today Review of Systems Review of Systems: All systems reviewed and are unremarkable except as noted below Physical Exam Physical Exam: Sitting on the bed without any acute distress Constitutional: well developed, well nourished and + obese; not ill appearing Eyes: PERRL, conjunctivae normal, anicteric sclerae ENMT: external ear and nose normal, oropharynx normal Neck: trachea midline, no thyromegaly Respiratory: no respiratory distress Auscultation: lungs clear to auscultation bilaterally Cardiovascular: Rate/Rhythm: regular rate and regular rhythm; not tachycardic Heart Sounds: normal S1 and normal S2; no murmur Extremities: no edema Gastrointestinal (Abdomen): Inspection/Auscultation: normal bowel sounds; abdomen not distended Percussion/Palpation: abdomen soft; abdomen nontender Neurologic: plantar reflexes intact bilaterally and moves all extremities; no focal motor deficits Psychiatric: A+Ox3, euthymic affect Lymphatic: no cervical or axillary lymphadenopathy Results & Data Results & Data Vital Signs (Past 12 Hours) Vital Signs Temp Pulse Pulse Resp BP Pulse Ox O2 Del Method 03/02/23 11:28 36.5 C 75 18 141/91 H 90 Room Air 03/02/23 07:00 83 03/02/23 08:10 36.9 C 91 H 18 170/106 H 90 Room Air 03/02/23 03:00 37 C 84 18 139/84 93 Room Air Laboratory Results Short CBC 03/02/23 Range/Units 07:33 WBC 7.20 (4.8-10.8) K/ul Hgb 13.5 (12.0-16.0) g/dl Hct 40.2 (37.0-47.0) % Plt Count 288 (130-400) K/uL BMP 03/02/23 07:33 Sodium 142 Potassium 4.0 Chloride 105 Carbon Dioxide 30 BUN 10 Creatinine 0.86 Glucose 96 Calcium 8.7 Medications Administered Current Inpatient Medications Acetaminophen (Acetaminophen 325 Mg Tab) 650 mg PO Q4H PRN PRN Reason: Pain or Fever Stop: 03/30/23 02:25 Last Admin: 03/01/23 11:32 Dose: 650 mg Ciprofloxacin (Ciprofloxacin 500 Mg Tab) 500 mg PO BID [facility] Stop: 03/12/23 12:59 Last Admin: 03/02/23 12:51 Dose: 500 mg Clonazepam (Clonazepam 1 Mg Tab) 1 mg PO BID PRN PRN Reason: Anxiety Stop: 03/30/23 02:25 Promethazine HCl 12.5 mg/ (Sodium Chloride) 50.5 mls @ 202 mls/hr IV Q6H PRN PRN Reason: Nausea And Vomiting Stop: 03/30/23 17:54 Last Infusion: 03/01/23 20:12 Dose: Infused Lisinopril (Lisinopril 2.5 Mg Tab) 2.5 mg PO QAM [facility] Stop: 03/31/23 11:29 Last Admin: 03/02/23 08:52 Dose: 2.5 mg Lorazepam (Lorazepam 2 Mg/1 Ml Vial) 0.5 mg IV Q6H PRN PRN Reason: Anxiety Stop: 03/30/23 01:16 Metronidazole (Metronidazole 500 Mg Tab) 500 mg PO Q8 [facility] Stop: 03/12/23 12:59 Last Admin: 03/02/23 13:06 Dose: 500 mg Miscellaneous (Remove Nicoderm Patch) 1 each N/A DAILY@0859 [facility] Stop: 03/31/23 08:58 Last Admin: 03/02/23 08:53 Dose: 1 each Morphine Sulfate (Morphine Sulfate 4 Mg/Ml 1 Ml Carp\Vial) 4 mg IV Q3H PRN PRN Reason: Pain Stop: 03/14/23 01:15 Last Admin: 03/02/23 08:53 Dose: 4 mg Nicotine (Nicotine 14 Mg/24 Hr Patch) 14 mg TD QAM [facility] Stop: 03/30/23 01:14 Last Admin: 03/02/23 08:53 Dose: 14 mg Ondansetron HCl (Ondansetron Inj 2 Mg/Ml 2 Ml Vial) 4 mg IV Q6H PRN PRN Reason: nv Stop: 03/30/23 01:16 Last Admin: 03/02/23 08:53 Dose: 4 mg Oxycodone HCl (Oxycodone Hcl Ir 5 Mg Tab (Immediate Release)) 5 - 10 mg PO QID PRN PRN Reason: Pain Stop: 03/14/23 01:15 Last Admin: 03/02/23 13:06 Dose: 10 mg Venlafaxine HCl (Venlafaxine Hcl Xr 150 Mg Capxr) 300 mg PO HS NIRAJ Stop: 03/30/23 20:59 Last Admin: 03/01/23 21:17 Dose: 300 mg
[2023-03-02] MEDS: VENLAFAXINE HCL XR 150 MG CAPXR PO SCH (21:05)
[2023-03-03] MEDS: MoRPHine SULFATE 4 MG/ML 1 ML CARP\\VIAL IV PRN ×2 (00:35→09:16)
[2023-03-03] MEDS: ACETAMINOPHEN 325 MG TAB PO PRN (04:45)
[2023-03-03] MEDS: oxyCODONE HCL IR 5 MG TAB (IMMEDIATE RELEASE) PO PRN (05:45)
[2023-03-03] MEDS: metroNIDAZOLE 500 MG TAB PO SCH (05:45)
[2023-03-03 06:34] LABS: Creatinine Clr Calc Pharmacy 72.4 ml/min; Est GFR (African American) 76.1 ml/min; Est GFR (Non-African American) 65.6 ml/min
[2023-03-03] MEDS: lisinopril 2.5 MG TAB PO SCH (08:11)
[2023-03-03] MEDS: NICOTINE 14 MG/24 HR PATCH TD SCH (08:12)
[2023-03-03] MEDS: CIPROFLOXACIN 500 MG TAB PO SCH (08:12)
--- NOTE | 2023-03-03 11:36 | Hospitalist Progress Note ---
Date of Service March 03, 2023 Assessment & Plan (1) Sepsis: Plan: Secondary to recurrent diverticulitis Multiple attacks of diverticulitis since September of last year about more than 7-8 attacks as per the patient hx bowel surgery as per records Failed outpatient treatment this attack CT of the abdomen pelvis did show uncomplicated diverticulitis at the splenic flexure without evidence of perforation or abscess Started on intravenous ertapenem Appreciate GI input and recommendation She has an appointment with the outpatient surgery in [place] and she will keep it following discharge from the hospital C. difficile toxin is pending Has been started with oral food and she has been tolerating without much difficulties No fever and or chills, he still has nausea and bowel has not moved Symptomatically much better with improvement of left lower quadrant pain Has been tolerating liquid diet and will advance to solid from this evening if tolerated Has been tolerating liquid diet and advance diet to solid Antibiotics have been changed to oral Cipro and Flagyl Advised to ambulate more and likely discharge tomorrow Has been tolerating regular diet and also Cipro and Flagyl with some nausea but no vomiting Medically stable to be discharged Wrongly advised to keep appointment with her surgeon as an outpatient Hypertensive urgency secondary to discomfort Possible chronic BP elevation given LVH on 2D echo from 2019 Blood pressure remains elevated Will increase the lisinopril to 10 mg once a day give additional 10 mg today Blood pressure seems to be stable at 141/91 Her blood pressure remains stable LGIB secondary to diverticulitis Patient currently hemodynamically stable. Follow H&H, transfuse PRBC if hemoglobin less than 8 and for symptomatic anemia (hx TIA as per records) Appreciate GI input and recommendation for outpatient colonoscopy in 4 to 6 weeks Has outpatient surgery appointment in [place] Strongly advised to keep appointment with the surgeon as an outpatient hx TIA as per records hx IBS/GERD/gastroparesis as per records anxiety/mood disorder, stable as per patient ongoing tobacco abuse Nicotine patch DVT prophylaxis. SCDs Re: L GIB Full code . Admission and Anticipated Discharge Date Admission Date: February 28, 2023 Subjective 02/28/2023 The patient was seen and examined in medical telemetry unit She has been having recurrent diverticulitis since September and this may be her eighth or ninth attack She does have sigmoid diverticulitis without any abscess and or perforation She has been feeling much better since admission 03/01/2023 The patient was seen and examined in medical telemetry unit She has been feeling much better and he still has mild pain involving the left lower quadrant No fever and no chills, no nausea and or vomiting Her bowel has not moved yet Tolerating liquid diet 03/02/2023 The patient was seen and examined in medical telemetry unit She still has some pain in the left lower quadrant and the bowel has not moved No fever and no chills, no nausea or vomiting Will start regular diet from today 03/03/2023 The patient was seen and examined in medical telemetry unit She has some pain in the left lower quadrant with nausea She has been moving her bowel and has been tolerating regular diet No abdominal distention and or vomiting and tolerating oral medications She will be discharged home this afternoon Review of Systems Review of Systems: All systems reviewed and are unremarkable except as noted below Physical Exam Physical Exam: Sitting on the bed without any acute distress Constitutional: well developed, well nourished and + obese; not ill appearing Eyes: PERRL, conjunctivae normal, anicteric sclerae ENMT: external ear and nose normal, oropharynx normal Neck: trachea midline, no thyromegaly Respiratory: no respiratory distress Auscultation: lungs clear to auscultation bilaterally Cardiovascular: Rate/Rhythm: regular rate and regular rhythm; not tachycardic Heart Sounds: normal S1 and normal S2; no murmur Extremities: no edema Gastrointestinal (Abdomen): Inspection/Auscultation: normal bowel sounds; abdomen not distended Percussion/Palpation: abdomen soft; abdomen nontender Musculoskeletal: No acute arthritis in any joint Neurologic: plantar reflexes intact bilaterally and moves all extremities; no focal motor deficits Psychiatric: A+Ox3, euthymic affect Lymphatic: no cervical or axillary lymphadenopathy Results & Data Results & Data Vital Signs (Past 12 Hours) Vital Signs Temp Pulse Pulse Resp BP Pulse Ox O2 Del Method 03/03/23 08:20 36.6 C 80 16 124/77 90 Room Air 03/03/23 07:30 92 H 03/03/23 02:28 36.7 C 92 H 18 138/92 96 Room Air 03/03/23 00:30 134/79 Laboratory Results BMP 03/03/23 05:46 Creatinine 1.00 Medications Administered Current Inpatient Medications Acetaminophen (Acetaminophen 325 Mg Tab) 650 mg PO Q4H PRN PRN Reason: Pain or Fever Stop: 03/30/23 02:25 Last Admin: 03/03/23 04:45 Dose: 650 mg Ciprofloxacin (Ciprofloxacin 500 Mg Tab) 500 mg PO BID [facility] Stop: 03/12/23 12:59 Last Admin: 03/03/23 08:12 Dose: 500 mg Clonazepam (Clonazepam 1 Mg Tab) 1 mg PO BID PRN PRN Reason: Anxiety Stop: 03/30/23 02:25 Promethazine HCl 12.5 mg/ (Sodium Chloride) 50.5 mls @ 202 mls/hr IV Q6H PRN PRN Reason: Nausea And Vomiting Stop: 03/30/23 17:54 Last Infusion: 03/01/23 20:12 Dose: Infused Lisinopril (Lisinopril 2.5 Mg Tab) 2.5 mg PO QAM [facility] Stop: 03/31/23 11:29 Last Admin: 03/03/23 08:11 Dose: 2.5 mg Lorazepam (Lorazepam 2 Mg/1 Ml Vial) 0.5 mg IV Q6H PRN PRN Reason: Anxiety Stop: 03/30/23 01:16 Metronidazole (Metronidazole 500 Mg Tab) 500 mg PO Q8 [facility] Stop: 03/12/23 12:59 Last Admin: 03/03/23 05:45 Dose: 500 mg Miscellaneous (Remove Nicoderm Patch) 1 each N/A DAILY@0859 [facility] Stop: 03/31/23 08:58 Last Admin: 03/03/23 08:13 Dose: 1 each Morphine Sulfate (Morphine Sulfate 4 Mg/Ml 1 Ml Carp\Vial) 4 mg IV Q3H PRN PRN Reason: Pain Stop: 03/14/23 01:15 Last Admin: 03/03/23 09:16 Dose: 4 mg Nicotine (Nicotine 14 Mg/24 Hr Patch) 14 mg TD QAM [facility] Stop: 03/30/23 01:14 Last Admin: 03/03/23 08:12 Dose: 14 mg Ondansetron HCl (Ondansetron Inj 2 Mg/Ml 2 Ml Vial) 4 mg IV Q6H PRN PRN Reason: nv Stop: 03/30/23 01:16 Last Admin: 03/02/23 08:53 Dose: 4 mg Oxycodone HCl (Oxycodone Hcl Ir 5 Mg Tab (Immediate Release)) 5 - 10 mg PO QID PRN PRN Reason: Pain Stop: 03/14/23 01:15 Last Admin: 03/03/23 05:45 Dose: 5 mg Venlafaxine HCl (Venlafaxine Hcl Xr 150 Mg Capxr) 300 mg PO HS [facility] Stop: 03/30/23 20:59 Last Admin: 03/02/23 21:05 Dose: 300 mg
--- NOTE | 2023-03-03 16:18 | Discharge Summary ---
Date of Service March 03, 2023 Admission HPI Per Admitting Provider History obtained from patient and records. Medical history significant for history TIA as per records, recurrent diverticulitis status post bowel surgery, history C. difficile, IBS, GERD, gastroparesis as per records, hyperlipidemia, anxiety/mood disorder, ongoing tobacco abuse. Last [facility] confinement June 2020 for acute diverticulitis. Recent confinement at [facility] June 2023 for acute diverticulitis. Patient seen by General Surgeon during confinement who recommended follow-up with major account representative. 3 ER visits last month for abdominal pain reminiscent of diverticulitis attacks. Diverticulitis noted on CT abdomen pelvis last February 10 visit. Patient discharged on antibiotic course. Patient returned to ER last February 16 secondary to worsening symptoms. Patient discharged home with note of improving diverticulitis on CAT scan. 3 days ago, patient had recurrence of achy lower abdominal pain with fever and bloody diarrhea symptoms. No chest pain, no SOB, no headache symptoms. Patient returned to ER. IV Ertapenem given for recurrent diverticulitis. 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 Admission Exam Per Admitting Provider Physical Exam: GENERAL: Comfortable, obese, no respiratory distress SKIN: Normal color, warm HEENT: [place] palpebral conjunctivae, no ptosis, moist buccal mucosa NECK : Supple, short neck, no tenderness CHEST : CTA, no tenderness HEART : RRR, no obvious murmurs ABDOMEN: Some distention, hypogastric tenderness EXTREMITIES : No LE swelling/tenderness, no other conspicuous deformities noted NEUROLOGIC : Coherent, no facial asymmetry, no other gross focality Principal Diagnosis Acute recurrent diverticulitis, hypertensive urgency, lower GI bleeding likely secondary to diverticulitis Discharge Exam Sitting on the bed without any acute distress Constitutional well developed, well nourished and + obese; not ill appearing Eyes PERRL, conjunctivae normal, anicteric sclerae ENMT external ear and nose normal, oropharynx normal Neck trachea midline, no thyromegaly Respiratory no respiratory distress Auscultation: lungs clear to auscultation bilaterally Cardiovascular Rate/Rhythm: regular rate and regular rhythm; not tachycardic Heart Sounds: normal S1 and normal S2; no murmur Extremities: no edema Gastrointestinal (Abdomen) Inspection/Auscultation: normal bowel sounds; abdomen not distended Percussion/Palpation: abdomen soft; abdomen nontender Neurologic plantar reflexes intact bilaterally and moves all extremities; no focal motor deficits Psychiatric A+Ox3, euthymic affect Lymphatic no cervical or axillary lymphadenopathy Discharge Data Allergies Allergy/AdvReac Type Severity Reaction Status Date / Time ibuprofen Allergy Severe Shortness Verified 02/27/23 22:15 of breath and hives Iodinated Contrast Media Allergy Severe HIVES PER Verified 02/27/23 22:15 GMG--PER PT "NOT AN ALLERGY". ketorolac Allergy Severe HIVES/DIFFICULTY Verified 02/27/23 22:15 BREATHING moxifloxacin Allergy Severe Shortness Verified 02/27/23 22:15 of breath/dizziness Penicillins Allergy Severe Anaphylaxis Verified 02/27/23 22:15 /HIVES Sulfa (Sulfonamide Allergy Severe Shortness Verified 02/27/23 22:15 Antibiotics) of breath and hives tramadol Allergy Severe HIVES/DIFFICULTY Verified 02/27/23 22:15 BREATHING aspirin Allergy Unknown Unknown Verified 02/27/23 22:15 dicyclomine [From Bentyl] AdvReac Intermediate Constipatio Verified 02/27/23 22:15 n haloperidol AdvReac Intermediate "KEEPS ME Verified 02/27/23 22:15 AWAKE, CAN'T SLEEP". hydrocodone AdvReac Vomiting Verified 02/27/23 22:16 prochlorperazine AdvReac MOTOR Unverified 07/04/20 18:19 RESTLESSNESS Consultations 02/28/23 00:28 ED Decision to Admit Stat 02/28/23 02:26 Consult Gastroenterology Routine Ordered Studies 02/27/23 21:51 CT abd pelvis IV con only Stat Hospital Course (1) Sepsis: Secondary to recurrent diverticulitis Multiple attacks of diverticulitis since September of last year about more than 7-8 attacks as per the patient hx bowel surgery as per records Failed outpatient treatment this attack CT of the abdomen pelvis did show uncomplicated diverticulitis at the splenic flexure without evidence of perforation or abscess Started on intravenous ertapenem Appreciate GI input and recommendation She has an appointment with the outpatient surgery in [place] and she will keep it following discharge from the hospital C. difficile toxin is pending Has been started with oral food and she has been tolerating without much difficulties No fever and or chills, he still has nausea and bowel has not moved Symptomatically much better with improvement of left lower quadrant pain Has been tolerating liquid diet and will advance to solid from this evening if tolerated Has been tolerating liquid diet and advance diet to solid Antibiotics have been changed to oral Cipro and Flagyl Advised to ambulate more and likely discharge tomorrow Has been tolerating regular diet and also Cipro and Flagyl with some nausea but no vomiting Medically stable to be discharged Wrongly advised to keep appointment with her surgeon as an outpatient Hypertensive urgency secondary to discomfort Possible chronic BP elevation given LVH on 2D echo from 2019 Blood pressure remains elevated Will increase the lisinopril to 10 mg once a day give additional 10 mg today Blood pressure seems to be stable at 141/91 Her blood pressure remains stable LGIB secondary to diverticulitis Patient currently hemodynamically stable. Follow H&H, transfuse PRBC if hemoglobin less than 8 and for symptomatic anemia (hx TIA as per records) Appreciate GI input and recommendation for outpatient colonoscopy in 4 to 6 weeks Has outpatient surgery appointment in [place] Strongly advised to keep appointment with the surgeon as an outpatient hx TIA as per records hx IBS/GERD/gastroparesis as per records anxiety/mood disorder, stable as per patient ongoing tobacco abuse Nicotine patch DVT prophylaxis. SCDs Re: L GIB Full code . Total Time Total Time Spent Total Time Spent (In Minutes): 35 minutes Discharge Plan Discharge Items Patient Disposition: Home - Self-Care Reason For Visit: SEPSIS, UTN URG Discharge Diagnosis: Acute recurrent diverticulitis, hypertensive urgency, lower GI bleeding likely secondary to diverticulitis Condition on Discharge: Good Activity: Resume your previous activity Non-emergency contact: Primary Care Provider Call non-emergency contact if: you have any medication questions and your symptoms worsen Follow-up/Referrals: Holland Naik MD [Primary Care Provider] - (Date & Time 03/07/2023 11:20 AM Provider Holland Naik MD Department Family Medicine [facility] Diet: Regular Addtl Attending Provider Instructions: Please take precautions to avoid fall Finish the course of antibiotic as advised Please use less of narcotic pain medications to avoid constipation, confusion and addiction Please give appointments with your healthcare providers specially with your surgeon Try to take [id number] probiotics with antibiotic Pending Studies at Discharge: No Stand-Alone Forms: My [facility], Work/School Release, Smoking Cessation Medications and DC Order Prescriptions: New metronidazole 500 mg Tablet 500 mg PO Q8 7 Days Qty: 21 0RF ciprofloxacin HCl 500 mg Tablet 500 mg PO BID 7 Days Qty: 14 0RF oxycodone 5 mg Tablet 5 mg PO QID PRN (Reason: pain) 3 Days Qty: 12 0RF nicotine 14 mg/24 hr patch 24 hour 1 patch transdermal DAILY Qty: 28 0RF Continued clonazepam 1 mg tablet 1 mg PO BID PRN (Reason: Anxiety) venlafaxine 150 mg capsule,extended release 24hr 300 mg PO HS epinephrine [EpiPen 2-[employer]] 0.3 mg/0.3 mL Auto-Injector 0.3 mg IM DIRECTED PRN (Reason: Allergic Reaction) albuterol sulfate [Ventolin HFA] 90 mcg/actuation Hfa Aerosol Inhaler 2 puff INHALATION Q4H PRN (Reason: Shortness Of Breath Or Wheezing) acetaminophen 500 mg Tablet 1,000 mg PO QID PRN (Reason: Pain) ondansetron 4 mg tablet,disintegrating 4 mg PO Q6H PRN (Reason: nausea and vomiting) Qty: 15 0RF Discharge Orders: Discharge Order (Routine); Ordered 03/03/23 Ordered By: Taylor Hoffman Admission Data Admit Date/Time: 02/28/23 01:14 Attending Provider: Taylor Hoffman Admit Provider: Jeremías Glaser Primary Care Provider: Holland Naik Other Providers: Anusha Iraheta ; Abrahan Linder ; Mariaelena Lutz ; Marivel Aguilar ; Stefani Flores ; Inge Moore ; Julia,Samson ; Vijay Ackerman ; Angela Monterroso ; Cintia Schultz ; Buddy Aviles ; Martha Eller ; Anuja Peck ; Ivonne Beyer ; Mandy Lo ; Ab Valles ; Jace Saldivar ; Shemar Farmer ; Kelsea Gillette ; Jovanny Dukes Jr ; Jeremías Glaser Other Interventions: Discharge Summary Assessment (RN) Last Done: 03/03/23 11:52
== END 2023-03-03 12:21 | disposition home or self-care (01) | DRG 871 ==
LOC: ED 20:40 → 2N 02-28 01:14

== ENCOUNTER 2023-07-22 14:05 | Inpatient (IN) ==
[2023-07-22] MEDS ORDERED: SODIUM CHLORIDE 0.9% 1,000 ML IV STA (14:37)
[2023-07-22] MEDS ORDERED: ACETAMINOPHEN 1,000 MG/100 ML VIAL IV STA (14:50)
--- NOTE | 2023-07-22 14:50 | Emergency Department Note ---
Impression & Plan Acute diverticulitis ED Provider Note NAME: TACO REYES AGE: 53 SEX: F : 1970 ARRIVES VIA: Walk-In INFORMANT: Patient, ED PROVIDER(S): Zane Allen MD CHIEF COMPLAINT: Left upper quadrant pain HPI: This is a 53-year-old female presenting for left upper quadrant pain. Patient states that she has a history of recurrent diverticulitis had a colon resection done 7 weeks ago. She is recovering well without any issues with surgical site. She notes that over the past 3 days she has noticed nausea, vomiting and diarrhea. Nonbloody nonbilious. She has noticed worsening pain in her left abdomen. She has significant tenderness. She notes fever at home up to 100 degrees. She is been dehydrated feeling. She has no chest pain or shortness of breath. No leg swelling or leg pain. Her surgeon for the reason colon resection was done in [facility]. ROS: See above HPI for pertinent positives & negatives. A total of 10 systems reviewed and were otherwise negative. PAST MEDICAL HISTORY: See Below PAST SURGICAL HISTORY: See Below FAMILY HISTORY: See Below SOCIAL HISTORY: See Below HOME MEDICATIONS: See Below ALLERGIES: See Below VITALS: See Below PHYSICAL EXAMINATION: General: resting comfortably in no acute distress Head: Normocephalic and atraumatic Eyes: Normal inspection, extraocular muscles intact, no conjunctival pallor Ear, nose, throat: Normal external exam Neck: Normal range of motion Respiratory: Patient is in no respiratory distress, lungs clear to auscultation bilaterally Cardiovascular: RRR without murmur appreciated GI: Voluntary guarding, diffusely tender Extremities: pulses intact with good cap refills, no LE pitting edema or calf tenderness Neuro: The patient awake and alert, appropriately conversive,no focal decifits Skin: Warm, dry, and intact MEDICAL DECISION MAKING: This is a 53-year-old female presenting for left abdominal pain. Patient had recent colonic resection. Now with fever, nausea vomiting diarrhea. Consider viral etiology such as COVID, flu, rhinovirus versus surgical complication such as abscess. We will get basic labs, bio fire, CT abdomen/pelvis. lab work is reviewed showing leukocytosis of 15. The CMP looks otherwise normal. LFTs within normal limits, urinalysis reveals no infection and BioFire negative. Patient CT scan unfortunately does reveal acute diverticulitis. Discussed with surgery, will see in consult, discussed medicine for admission due to pain control and complicated previous history. Triage Nursing notes reviewed. Prior medical records reviewed Vital Signs: reviewed and remarkable for no significant abnormalities Differential diagnosis: SBO, diverticulitis, pancreatitis, ovarian torsion ER treatment provided: See below Diagnostics interpreted by me: ECG: ECG reviewed by me with sinus tachycardia at a rate of 102, normal axis, normal [place], normal QRS, normal QTc, no ST segment elevations consistent with STEMI criteria Cardiac Monitoring: An order was placed for continuous cardiac monitoring. The monitor shows a rate of with rhythm. Laboratory studies: As stated above and show below. Imaging studies: See below. Radiographic imaging was reviewed by myself Consultation(s): Dr. Coats, general surgery Past Med/Surg History Medical History (Updated 07/22/23 @ 22:20 by Zane Allen MD) Asthma Depression Facial pain DWAYNE (generalized anxiety disorder) Gastroparesis Generalized pruritus GERD (gastroesophageal reflux disease) History of Clostridium difficile colitis HLD (hyperlipidemia) IBS (irritable bowel syndrome) Migraine Osteomyelitis Pancreatitis Squamous cell carcinoma of left shoulder Suicide attempt by drug ingestion On 04/21/16 10:30 Helene Rene wrote "03/22/2016" TIA (transient ischemic attack) Surgical History H/O colonoscopy H/O esophagogastroduodenoscopy H/O tubal ligation H/O unilateral oophorectomy History of colectomy due to diverticulitis 2008, Dr. Mancuso 2008 Hx of appendectomy Hx of tonsillectomy S/P cholecystectomy S/P MARLON (total abdominal hysterectomy) Family History Father Type 2 diabetes mellitus Mother Myocardial infarction Social History Smoking Status: Current every day smoker Tobacco Type: Cigarettes Cigarettes Per Day: 10; Second Hand Exposure: Yes; Do You Dip or Chew Tobacco: No; Hx Alcohol Use: No Hx Substance Use: No Preferred Language: Belgian Communication Ability: Effective Cloud Systems Architect Required: No Beliefs That Will Affect Care: None Current Living Situation: Alone Feels Safe at Home: Yes Assistive Devices: None Allergies Allergies Allergy/AdvReac Type Severity Reaction Status Date / Time ibuprofen Allergy Severe Shortness Verified 03/22/23 22:48 of breath and hives ketorolac Allergy Severe HIVES/DIFFICULTY Verified 03/22/23 22:48 BREATHING moxifloxacin Allergy Severe Shortness Verified 03/22/23 22:48 of breath/dizziness Penicillins Allergy Severe Anaphylaxis Verified 03/22/23 22:48 /HIVES Sulfa (Sulfonamide Allergy Severe Shortness Verified 03/22/23 22:48 Antibiotics) of breath and hives tramadol Allergy Severe HIVES/DIFFICULTY Verified 03/22/23 22:48 BREATHING aspirin Allergy Unknown Unknown Verified 03/22/23 22:48 dicyclomine [From Bentyl] AdvReac Intermediate Constipatio Verified 03/22/23 22:48 n haloperidol AdvReac Intermediate "KEEPS ME Verified 03/22/23 22:48 AWAKE, CAN'T SLEEP". hydrocodone AdvReac Intermediate Vomiting Verified 03/22/23 22:49 prochlorperazine AdvReac Intermediate MOTOR Verified 03/22/23 22:49 RESTLESSNESS Home Meds Home Medications Medication Instructions Recorded Confirmed albuterol sulfate 90 mcg/actuation 2 puff inhalation Q4H PRN Wheezing 07/23/18 07/22/23 aerosol inhaler (Ventolin HFA) epinephrine 0.3 mg/0.3 mL 0.3 mg IM DIRECTED PRN Allergic 07/23/18 07/22/23 injection, auto-injector (EpiPen Reaction 2-Cisco) venlafaxine 150 mg 300 mg PO HS 07/23/18 07/22/23 capsule,extended release 24 hr acetaminophen 500 mg tablet 1,000 mg PO QID PRN Pain 02/27/23 07/22/23 Results & Data (ED) Vital Signs Vital Signs - 24 hr 07/22/23 14:08 07/22/23 15:10 07/22/23 14:38 Temperature 36.8 C Temperature Source Temporal Artery Scan Pulse Rate 120 H 100 H Pulse Rate [Apical] 102 H Pulse Rate from SpO2 Sensor Respiratory Rate 18 17 18 Blood Pressure 178/108 H Blood Pressure [Left Arm] 142/106 H Blood Pressure Mean 131 Blood Pressure Mean [Left Arm] 118 Pulse Oximetry 96 92 91 Oxygen Delivery Method Room Air Room Air Room Air Sepsis Recent Fever Within 48 Hours No Sepsis New/Unexplained Change in Mental Status No Sepsis Action Taken by Nursing No Action Required 07/22/23 15:51 07/22/23 15:03 07/22/23 15:03 Temperature Temperature Source Pulse Rate 94 H Pulse Rate [Apical] Pulse Rate from SpO2 Sensor Respiratory Rate Blood Pressure 148/106 H 148/106 H Blood Pressure [Left Arm] Blood Pressure Mean 120 120 Blood Pressure Mean [Left Arm] Pulse Oximetry Oxygen Delivery Method Sepsis Recent Fever Within 48 Hours Sepsis New/Unexplained Change in Mental Status Sepsis Action Taken by Nursing 07/22/23 15:03 07/22/23 16:12 07/22/23 17:00 Temperature Temperature Source Pulse Rate 104 H Pulse Rate [Apical] Pulse Rate from SpO2 Sensor 104 H 101 H Respiratory Rate 16 Blood Pressure 152/105 H Blood Pressure [Left Arm] Blood Pressure Mean 116 Blood Pressure Mean [Left Arm] Pulse Oximetry 94 95 Oxygen Delivery Method Sepsis Recent Fever Within 48 Hours Sepsis New/Unexplained Change in Mental Status Sepsis Action Taken by Nursing 07/22/23 17:00 Temperature Temperature Source Pulse Rate 94 H Pulse Rate [Apical] Pulse Rate from SpO2 Sensor 94 H Respiratory Rate 20 Blood Pressure Blood Pressure [Left Arm] Blood Pressure Mean Blood Pressure Mean [Left Arm] Pulse Oximetry 94 Oxygen Delivery Method Sepsis Recent Fever Within 48 Hours Sepsis New/Unexplained Change in Mental Status Sepsis Action Taken by Nursing Laboratory Data 07/22/23 14:48 07/22/23 14:48 Lab Results 07/22/23 07/22/23 07/22/23 Range/Units 14:48 14:48 14:48 WBC 15.84 H (4.8-10.8) K/ul RBC 4.54 (4.20-5.40) M/uL Hgb 13.7 (12.0-16.0) g/dl Hct 40.6 (37.0-47.0) % MCV 89.4 (80.0-100.0) fL MCH 30.2 (25.0-34.0) pg MCHC 33.7 (32.0-36.0) g/dL RDW Std Deviation 43.9 (36.4-46.3) fL RDW Coeff of Liat 13.4 (11.5-14.5) % Plt Count 283 (130-400) K/uL MPV 9.5 (9.4-12.4) fL Immature Gran % (Auto) 0.4 % Neut % (Auto) 68.0 % Lymph % (Auto) 23.4 % [place] % (Auto) 6.3 % Eos % (Auto) 1.5 % Baso % (Auto) 0.4 % Neut # (Auto) 10.76 H (1.40-6.50) K/uL Lymph # (Auto) 3.70 H (1.20-3.40) K/uL [place] # (Auto) 1.00 H (0.11-0.59) K/uL Eos # (Auto) 0.24 (0.00-0.50) K/uL Baso # (Auto) 0.07 (0.00-0.20) K/uL Immature Gran # (Auto) 0.07 (0.01-0.20) K/uL Sodium 136 (136-145) mmol/L Potassium 3.9 (3.5-5.1) mmol/L Chloride 103 (98-107) mmol/L Carbon Dioxide 26 (21-32) mmol/L Anion Gap 7 (3-11) BUN 10 (6-23) mg/dl Creatinine 0.80 (0.6-1.2) mg/dl Est Cr Clr Drug Dosing 98.6 ml/min Est GFR ( Amer) 98.9 ml/min Est GFR (Non-Af Amer) 85.4 ml/min BUN/Creatinine Ratio 12.5 (10-20) Glucose 100 H (70-99(Fasting)) mg/dl Calcium 9.3 (8.6-10.3) mg/dl Total Bilirubin 0.4 (0.2-1.0) mg/dl AST 14 (13-39) U/L ALT 19 (7-52) U/L Alkaline Phosphatase 85 (34-104) U/L Troponin I High Sens 3.8 (0-14) pg/ml Total Protein 7.6 (6.0-8.3) gm/dl Albumin 4.4 (3.4-5.0) gm/dl Globulin 3.2 (2.5-4.0) gm/dl Albumin/Globulin Ratio 1.4 (0.9-2) Lipase 12 (11-82) U/L HCG, Qual Negative (Negative) Urine Color Urine Appearance (Clear) Urine pH (4.5-7.5) Ur Specific [place] (1.000-1.030) Urine Protein (Negative) Urine Glucose (UA) (Negative) Urine Ketones (Negative) Urine Blood (Negative) Urine Nitrite (Negative) Urine Bilirubin (Negative) Urine Urobilinogen (Negative) Ur Leukocyte Esterase (Negative) Adenovirus (PCR) (NotDetected) B. pertussis DNA (PCR) (NotDetected) B.parapertussis DNA PCR (NotDetected) C. pneumoniae DNA (PCR) (NotDetected) Coronavirus OC43 (PCR) (NotDetected) Coronavirus HKU1 (PCR) (NotDetected) Coronavirus 229E (PCR) (NotDetected) SARS-CoV-2 (PCR) (NotDetected) Coronavirus NL63 (PCR) (NotDetected) Human Metapneumovir PCR (NotDetected) Influenza Type A (PCR) (NotDetected) Influenza Type B (PCR) (NotDetected) M. pneumoniae (PCR) (NotDetected) Parainfluenza 1 (PCR) (NotDetected) Parainfluenza 2 (PCR) (NotDetected) Parainfluenza 3 (PCR) (NotDetected) Parainfluenza 4 (PCR) (NotDetected) RSV (PCR) (NotDetected) Entero/Rhino (PCR) (NotDetected) 07/22/23 07/22/23 Range/Units 14:48 14:48 WBC (4.8-10.8) K/ul RBC (4.20-5.40) M/uL Hgb (12.0-16.0) g/dl Hct (37.0-47.0) % MCV (80.0-100.0) fL MCH (25.0-34.0) pg MCHC (32.0-36.0) g/dL RDW Std Deviation (36.4-46.3) fL RDW Coeff of Liat (11.5-14.5) % Plt Count (130-400) K/uL MPV (9.4-12.4) fL Immature Gran % (Auto) % Neut % (Auto) % Lymph % (Auto) % [place] % (Auto) % Eos % (Auto) % Baso % (Auto) % Neut # (Auto) (1.40-6.50) K/uL Lymph # (Auto) (1.20-3.40) K/uL [place] # (Auto) (0.11-0.59) K/uL Eos # (Auto) (0.00-0.50) K/uL Baso # (Auto) (0.00-0.20) K/uL Immature Gran # (Auto) (0.01-0.20) K/uL Sodium (136-145) mmol/L Potassium (3.5-5.1) mmol/L Chloride (98-107) mmol/L Carbon Dioxide (21-32) mmol/L Anion Gap (3-11) BUN (6-23) mg/dl Creatinine (0.6-1.2) mg/dl Est Cr Clr Drug Dosing ml/min Est GFR ( Amer) ml/min Est GFR (Non-Af Amer) ml/min BUN/Creatinine Ratio (10-20) Glucose (70-99(Fasting)) mg/dl Calcium (8.6-10.3) mg/dl Total Bilirubin (0.2-1.0) mg/dl AST (13-39) U/L ALT (7-52) U/L Alkaline Phosphatase (34-104) U/L Troponin I High Sens (0-14) pg/ml Total Protein (6.0-8.3) gm/dl Albumin (3.4-5.0) gm/dl Globulin (2.5-4.0) gm/dl Albumin/Globulin Ratio (0.9-2) Lipase (11-82) U/L HCG, Qual (Negative) Urine Color Yellow Urine Appearance Clear (Clear) Urine pH 6.5 (4.5-7.5) Ur Specific [place] 1.005 (1.000-1.030) Urine Protein Negative (Negative) Urine Glucose (UA) Negative (Negative) Urine Ketones Negative (Negative) Urine Blood Negative (Negative) Urine Nitrite Negative (Negative) Urine Bilirubin Negative (Negative) Urine Urobilinogen Negative (Negative) Ur Leukocyte Esterase Negative (Negative) Adenovirus (PCR) Not Detected (NotDetected) B. pertussis DNA (PCR) Not Detected (NotDetected) B.parapertussis DNA PCR Not Detected (NotDetected) C. pneumoniae DNA (PCR) Not Detected (NotDetected) Coronavirus OC43 (PCR) Not Detected (NotDetected) Coronavirus HKU1 (PCR) Not Detected (NotDetected) Coronavirus 229E (PCR) Not Detected (NotDetected) SARS-CoV-2 (PCR) Not Detected (NotDetected) Coronavirus NL63 (PCR) Not Detected (NotDetected) Human Metapneumovir PCR Not Detected (NotDetected) Influenza Type A (PCR) Not Detected (NotDetected) Influenza Type B (PCR) Not Detected (NotDetected) M. pneumoniae (PCR) Not Detected (NotDetected) Parainfluenza 1 (PCR) Not Detected (NotDetected) Parainfluenza 2 (PCR) Not Detected (NotDetected) Parainfluenza 3 (PCR) Not Detected (NotDetected) Parainfluenza 4 (PCR) Not Detected (NotDetected) RSV (PCR) Not Detected (NotDetected) Entero/Rhino (PCR) Not Detected (NotDetected) Administered Medications Hydromorphone HCl (Hydromorphone Inj 0.5 Mg/0.5 Ml Syr) 0.5 mg IV Q3H PRN PRN Reason: Pain Stop: 08/05/23 17:29 Last Admin: 07/22/23 20:55 Dose: 0.5 mg Documented By: ZAMZAM Ceftriaxone Sodium 2,000 mg/ (Dextrose) 70 mls @ 100 mls/hr IV Q24H NIRAJ; Courtney col Stop: 07/24/23 16:44 Last Infusion: 07/22/23 18:09 Dose: 0 mls/hr Documented By: Admin: 07/22/23 17:03 Dose: 100 mls/hr Documented By: VERONICA Metronidazole (Flagyl) 500 mg in 100 mls @ 100 mls/hr IV Q8H NIRAJ; Protocol Stop: 08/01/23 18:59 Last Infusion: 07/22/23 20:51 Dose: 0 mls/hr Documented By: Admin: 07/22/23 19:51 Dose: 100 mls/hr Documented By: MEGAN Sodium Chloride (Nss) 1,000 mls @ 100 mls/hr IV .Q10H NIRAJ Stop: 08/21/23 17:44 Last Admin: 07/22/23 17:45 Dose: 100 mls/hr Documented By: VERONICA Venlafaxine HCl (Venlafaxine Hcl Xr 150 Mg Capxr) 300 mg PO HS NIRAJ Stop: 08/21/23 20:59 Last Admin: 07/22/23 21:06 Dose: 300 mg Documented By: RES Discontinued Medications Hydromorphone HCl (Hydromorphone Inj 0.5 Mg/0.5 Ml Syr) 0.5 mg IV NOW STA Stop: 07/22/23 16:19 Last Admin: 07/22/23 16:46 Dose: 0.5 mg Documented By: ALETA Hydromorphone HCl (Hydromorphone Inj 0.5 Mg/0.5 Ml Syr) 0.5 mg IV NOW STA Stop: 07/22/23 17:31 Last Admin: 07/22/23 17:47 Dose: 0.5 mg Documented By: VERONICA Sodium Chloride (Nss) 1,000 mls @ 999 mls/hr IV .Q1H1M STA Stop: 07/22/23 15:37 Last Infusion: 07/22/23 16:14 Dose: 0 mls/hr Documented By: Admin: 07/22/23 15:07 Dose: 999 mls/hr Documented By: ML Acetaminophen (Ofirmev) 1,000 mg in 100 mls @ 400 mls/hr IV NOW STA Stop: 07/22/23 15:04 Last Infusion: 07/22/23 15:56 Dose: 0 mls/hr Documented By: Admin: 07/22/23 15:07 Dose: 400 mls/hr Documented By: ML Ioversol (Optiray 320 100ml) 93 ml IV ONCE ONE Stop: 07/22/23 16:06 Last Admin: 07/22/23 16:05 Dose: 93 ml Documented By: BLANK Ondansetron HCl (Ondansetron Inj 2 Mg/Ml 2 Ml Vial) 4 mg IV NOW STA Stop: 07/22/23 20:22 Last Admin: 07/22/23 20:23 Dose: 4 mg Documented By: MEGAN Imaging Data Radiologist's Impression: Abdomen/Pelvis CT 07/22/23 14:39 CT OF THE ABDOMEN AND PELVIS WITH CONTRAST CLINICAL HISTORY: LUQ pain, hx of resection COMPARISON STUDY: CT of the abdomen and pelvis April 10, 2023. KUB April 12, 2023. TECHNIQUE: Following IV administration of 93 mL of Optiray, axial images of the abdomen and pelvis were obtained from the lung bases to the proximal femurs. Images were reviewed in the axial, sagittal, and coronal planes. IV contrast was administered without complication. Automated exposure control was utilized for the study. A dose lowering technique was utilized adhering to the principles of ALARA. CT DOSE: 1587.30 mGy.cm FINDINGS: Lung bases are unremarkable. No pneumatosis, free air or portal venous gas is present. There is no biliary ductal dilatation status post cholecystectomy. Spleen, adrenal glands and pancreas are unremarkable. Several b ilateral renal calculi measure up to 5 mm. There are no ureteral calculi. There is slight dilatation of the mid left ureter. This is likely due to inflammation related to diverticulitis of the distal descending and proximal sigmoid colon. Colonic wall thickening is noted with extensive colonic diverticulosis. There is moderate associated inflammation. No free air or abscess is present. Interval re section of the splenic flexure of the colon is noted. Interval partial left colectomy is noted. Minimal stranding adjacent to these remaining splenic flexure of the colon is noted. This is likely postsurgical. Postoperative findings within the anterior abdominal wall are noted. There is no fluid col lection. Previous sigmoid resection is noted. No evidence for a bowel obstruction. The appendix is surgically absent. Major vasculature is patent. There is no lymphadenopathy. IMPRESSION: 1. Acute diverticulitis of the distal descending and proximal sigmoid colon. Colonic diverticulosis with colonic wall thickening. Moderate inflammation. No free air or abscess. 2. Interval partial left colectomy. Minimal thickening adjacent to the splenic flexure of the colon is likely postsurgical. No additional sites of bowel wall thickening. 3. No bowel obstruction. 4. Bilateral nephrolithiasis. No ureteral calculi or hydronephrosis. Mild dilata tion of the distal left ureter likely due to mass effect upon the ureter by inflammation related to diverticulitis. ACT 112: Negative or not required by law. Electronically signed by: Henry Epstein M.D. 07/22/2023 4:21 PM Discharge Plan Visit Data Chief Complaint: Abdominal Pain Stated Complaint: ABDOMINAL PAIN ED Provider: Zane Allen Discharge Problem: Acute diverticulitis Patient Disposition: Admitted As Inpatient Discharge Instructions Interventions: ED Discharge Assessment Last Done: 07/22/23 20:08
[2023-07-22 15:06] LABS: Appearance Urine Clear (Clear); Bilirubin Urine Negative (Negative); Blood Urine Negative (Negative); Color Urine Yellow; Glucose Urine UA Negative (Negative); Ketones Urine Negative (Negative); Leukocyte Esterase Urine Negative (Negative); Nitrite Urine Negative (Negative); Protein Urine Negative (Negative); Specific Gravity Urine 1.005 (1.000-1.030); Urobilinogen Urine Negative (Negative); pH Urine 6.5 (4.5-7.5)
[2023-07-22 15:12] LABS: Basophils # (auto) 0.07 K/uL (0.00-0.20); Basophils % (auto) 0.4 %; Eosinophils # (auto) 0.24 K/uL (0.00-0.50); Eosinophils % (auto) 1.5 %; Hematocrit (blood only) 40.6 % (37.0-47.0); Hemoglobin 13.7 g/dl (12.0-16.0); Immature Granulocytes # (auto) 0.07 K/uL (0.01-0.20); Immature Granulocytes % (auto) 0.4 %; Lymphocytes % (auto) 23.4 %; Mean Corpuscular Hemoglobin 30.2 pg (25.0-34.0); Mean Corpuscular Hgb Conc 33.7 g/dL (32.0-36.0); Mean Corpuscular Volume 89.4 fL (80.0-100.0); Mean Platelet Volume 9.5 fL (9.4-12.4); Monocytes % (auto) 6.3 %; Neutrophils # (auto) 10.76 K/uL (1.40-6.50); Platelet Count 283 K/uL (130-400); RDW Coefficient of Variation 13.4 % (11.5-14.5); RDW Standard Deviation 43.9 fL (36.4-46.3); Red Blood Count 4.54 M/uL (4.20-5.40); White Blood Count 15.84 K/ul (4.8-10.8)
[2023-07-22 15:25] LABS: Pregnancy Test, Serum Negative (Negative)
[2023-07-22 15:27] LABS: Albumin Globulin Ratio 1.4 (0.9-2); Albumin Level 4.4 gm/dl (3.4-5.0); BUN Creatinine Ratio 12.5 (10-20); Bilirubin,Total 0.4 mg/dl (0.2-1.0); Calcium 9.3 mg/dl (8.6-10.3); Creatinine Clr Calc Pharmacy 98.6 ml/min; Est GFR (African American) 98.9 ml/min; Est GFR (Non-African American) 85.4 ml/min; Globulin 3.2 gm/dl (2.5-4.0); Potassium 3.9 mmol/L (3.5-5.1); Total Protein 7.6 gm/dl (6.0-8.3)
[2023-07-22 15:44] LABS: Troponin I High Sensitivity 3.8 pg/ml (0-14)
[2023-07-22 15:56] LABS: Adenovirus PCR Not Detected (NotDetected); Bordetella parapertussis PCR Not Detected (NotDetected); Bordetella pertussis PCR Not Detected (NotDetected); Chlamydia pneumoniae PCR Not Detected (NotDetected); Coronavirus 229E PCR Not Detected (NotDetected); Coronavirus CoV-2 (COVID19)PCR Not Detected (NotDetected); Coronavirus HKU1 PCR Not Detected (NotDetected); Coronavirus NL63 PCR Not Detected (NotDetected); Coronavirus OC43PCR Not Detected (NotDetected); Human Metapneumovirus PCR Not Detected (NotDetected); Influenza A PCR Not Detected (NotDetected); Influenza B PCR Not Detected (NotDetected); Mycoplasma pneumoniae PCR Not Detected (NotDetected); Parainfluenza Virus 1 PCR Not Detected (NotDetected); Parainfluenza Virus 2 PCR Not Detected (NotDetected); Parainfluenza Virus 3 PCR Not Detected (NotDetected); Parainfluenza Virus 4 PCR Not Detected (NotDetected); Respiratory Syncytial VirusPCR Not Detected (NotDetected); Rhinovirus/Enterovirus PCR Not Detected (NotDetected)
[2023-07-22] MEDS ORDERED: OPTIRAY 320 100ml IV ONE (16:05)
[2023-07-22] MEDS ORDERED: HYDROmorphone INJ 0.5 MG/0.5 ML SYR IV STA ×2 (16:18→17:30)
--- NOTE | 2023-07-22 16:23 | CT Scan Report ---
CT OF THE ABDOMEN AND PELVIS WITH CONTRAST CLINICAL HISTORY: LUQ pain, hx of resection COMPARISON STUDY: CT of the abdomen and pelvis April 10, 2023. KUB April 12, 2023. TECHNIQUE: Following IV administration of 93 mL of Optiray, axial images of the abdomen and pelvis we re obtained from the lung bases to the proximal femurs. Images were reviewed in the axial, sagittal, and coronal planes. IV contrast was administered without complication. Automated exposure control wa s utilized for the study. A dose lowering technique was utilized adhering to the principles of ALARA . CT DOSE: 1587.30 mGy.cm FINDINGS: Lung bases are unremarkable. No pneumatosis, free air or portal venous gas is present. Ther e is no biliary ductal dilatation status post cholecystectomy. Spleen, adrenal glands and pancreas ar e unremarkable. Several bilateral renal calculi measure up to 5 mm. There are no ureteral calculi. Th ere is slight dilatation of the mid left ureter. This is likely due to inflammation related to divert iculitis of the distal descending and proximal sigmoid colon. Colonic wall thickening is noted with e xtensive colonic diverticulosis. There is moderate associated inflammation. No free air or abscess is present. Interval resection of the splenic flexure of the colon is noted. Interval partial left saran ctomy is noted. Minimal stranding adjacent to these remaining splenic flexure of the colon is noted. This is likely postsurgical. Postoperative findings within the anterior abdominal wall are noted. The re is no fluid collection. Previous sigmoid resection is noted. No evidence for a bowel obstruction. The appendix is surgically absent. Major vasculature is patent. There is no lymphadenopathy. IMPRESSION: 1. Acute diverticulitis of the distal descending and proximal sigmoid colon. Colonic diverticulosis w ith colonic wall thickening. Moderate inflammation. No free air or abscess. 2. Interval partial left colectomy. Minimal thickening adjacent to the splenic flexure of the colon i s likely postsurgical. No additional sites of bowel wall thickening. 3. No bowel obstruction. 4. Bilateral nephrolithiasis. No ureteral calculi or hydronephrosis. Mild dilatation of the distal le ft ureter likely due to mass effect upon the ureter by inflammation related to diverticulitis. ACT 112: Negative or not required by law. Electronically signed by: Henry Epstein M.D. 07/22/2023 4:21 PM
[2023-07-22] MEDS: cefTRIAXone SODIUM 2,000 MG in DEXTROSE 5% 50 ML IV SCH (17:03)
--- NOTE | 2023-07-22 17:38 | History & Physical Report ---
Date of Service July 22, 2023 Assessment & Plan (1) Acute diverticulitis: Plan: Past medical history of recurrent diverticulitis with partial sigmoid colectomy with anastomosis in 2008, recent robotic laparoscopic partial co[place] in [place] 2023 [place] [facility] [place] Presents with left-sided abdominal pain, nausea, vomiting for 3 days and fever for 2 days Leukocytosis present with WBC of 15.8 CT abdomen pelvis shows acute diverticulitis of the distal descending and p roximal sigmoid colon with moderate inflammation. No free air or abscess present. Minimal thickening adjacent to the splenic flexure of the colon likely postsurgical. Bowel rest with n.p.o. with sips with meds/ice chips IV fluids with normal saline IV antibiotic with ceftriaxone and Flagyl IV Tylenol every 8 hours for pain control and as needed Dilaudid Surgery consult Other conditions; Mood disordervenlafaxine, continue DVT prophylaxis heparin Full code Time spent evaluating patient, direct bedside care, chart review, placing orders, interpretation of diagnostic studies, discussion with consultants, patient, and family members, as well as other required patient management activities is 75 minutes Please note the above document was generated using voice recognition software. It may contain grammatical, syntax or spelling errors. Any formal questions or concerns about the content, text or information contained within the body of this dictation should be directly addressed to the provider for clarification History of Present Illness Chief Complaint: Abdominal pain for 3 days Fever for 2 days Primary Care Provider: Holland Naik MD History obtained from chart review and interview with the patient Past medical history of recurrent diverticulitis with partial sigmoid colectomy with anastomosis in 2008, recent robotic laparoscopic partial colectomy in May 2023 at [facility] [place] mood disorder Patient presents with abdominal pain in left side of her abdomen for the last 3 days. The abdominal pain is associated with fever starting yesterday; Tmax of 100 F associated with chills. She also reports decreased appetite nausea and vomiting since last 3 days as well. Reports diarrhea starting on the day of the abdominal pain. Denies seeing blood in the stool or in vomitus. Denies chest pain, shortness of breath or urinary symptoms. She had recent elective robotic laparoscopic partial colectomy [place] [facility] [place]; has been recovering well from it. Had multiple diverticulitis episodes for several years. On presentation to the ED, she was afebrile, normotensive and saturating well on room air. Leukocytosis present with WBC of 15.8 CT abdomen pelvis shows acute diverticulitis of the distal descending and proximal sigmoid colon with moderate inflammation. No free air or abscess present. Minimal thickening adjacent to the splenic flexure of the colon likely postsurgical. Patient was given ceftriaxone in the ED. Patient to be admitted to medical floor for further treatment Allergies Allergy/AdvReac Type Severity Reaction Status Date / Time ibuprofen Allergy Severe Shortness Verified 03/22/23 22:48 of breath and hives ketorolac Allergy Severe HIVES/DIFFICULTY Verified 03/22/23 22:48 BREATHING moxifloxacin Allergy Severe Shortness Verified 03/22/23 22:48 of breath/dizziness Penicillins Allergy Severe Anaphylaxis Verified 03/22/23 22:48 /HIVES Sulfa (Sulfonamide Allergy Severe Shortness Verified 03/22/23 22:48 Antibiotics) of breath and hives tramadol Allergy Severe HIVES/DIFFICULTY Verified 03/22/23 22:48 BREATHING aspirin Allergy Unknown Unknown Verified 03/22/23 22:48 dicyclomine [From Bentyl] AdvReac Intermediate Constipatio Verified 03/22/23 22:48 n haloperidol AdvReac Intermediate "KEEPS ME Verified 03/22/23 22:48 AWAKE, CAN'T SLEEP". hydrocodone AdvReac Intermediate Vomiting Verified 03/22/23 22:49 prochlorperazine AdvReac Intermediate MOTOR Verified 03/22/23 22:49 RESTLESSNESS Home Medications Medication Instructions Recorded Confirmed Type albuterol sulfate 90 mcg/actuation 2 puff inhalation Q4H PRN Wheezing 07/23/18 07/22/23 History aerosol inhaler (Ventolin HFA) epinephrine 0.3 mg/0.3 mL 0.3 mg IM DIRECTED PRN Allergic 07/23/18 07/22/23 History injection, auto-injector (EpiPen Reaction 2-Cisco) venlafaxine 150 mg 300 mg PO HS 07/23/18 07/22/23 History capsule,extended release 24 hr acetaminophen 500 mg tablet 1,000 mg PO QID PRN Pain 02/27/23 07/22/23 History Past Med/Surg History Medical History (Updated 04/27/23 @ 00:07 by Background Daemon) Asthma Depression Facial pain DWAYNE (generalized anxiety disorder) Gastroparesis Generalized pruritus GERD (gastroesophageal reflux disease) History of Clostridium difficile colitis HLD (hyperlipidemia) IBS (irritable bowel syndrome) Migraine Osteomyelitis Pancreatitis Squamous cell carcinoma of left shoulder Suicide attempt by drug ingestion On 04/21/16 10:30 Helene Rene wrote "03/22/2016" TIA (transient ischemic attack) Surgical History H/O colonoscopy H/O esophagogastroduodenoscopy H/O tubal ligation H/O unilateral oophorectomy History of colectomy due to diverticulitis 2009, Dr. Mancuso 2008 Hx of appendectomy Hx of tonsillectomy S/P cholecystectomy S/P MARLON (total abdominal hysterectomy) Family History Father Type 2 diabetes mellitus Mother Myocardial infarction Social History Smoking Status: Current every day smoker Tobacco Type: Cigarettes Cigarettes Per Day: 10; Second Hand Exposure: Yes; Do You Dip or Chew Tobacco: No; Hx Alcohol Use: No Hx Substance Use: No Preferred Language: Portuguese Communication Ability: Effective Heavy Threader Required: No Beliefs That Will Affect Care: None Current Living Situation: Alone Feels Safe at Home: Yes Assistive Devices: None Review of Systems Review of Systems: All systems reviewed & are unremarkable except as noted in Subjective Physical Exam Physical Exam: Constitutional: Alert orient x3; not in distress. Respiratory: normal respiratory effort, lungs clear to auscultation, no wheeze, rales, rhonchi. Normal insp/exp effort, no accessory muscle use Cardiovascular: RRR, no murmur, no edema Vessels: no JVD or carotid bruit Chest: normal inspection of chest Abdomen: Tenderness present in left lower quadrant. Bowel sound present. Scars from robotic surgery healing well Musculoskeletal: no cyanosis or clubbing, extremities motor strength 5/5 Skin: no rashes, warm and dry normal turgor Neurologic: PERRL, EOMI, accommodation nl, no face palsy, no dysarthria CN's II- XI intact bilaterally and moves all extremities Psychiatric: A+Ox3, euthymic affect Results & Data Results & Data Vital Signs (Past 12 Hours) Vital Signs Temp Pulse Pulse Resp BP BP Pulse Ox 07/22/23 15:51 94 H 07/22/23 14:38 100 H 18 91 07/22/23 15:10 102 H 17 142/106 H 92 07/22/23 14:08 36.8 C 120 H 18 178/108 H 96 O2 Del Method 07/22/23 15:51 07/22/23 14:38 Room Air 07/22/23 15:10 Room Air 07/22/23 14:08 Room Air Laboratory Results Laboratory Results WBC 15.84 K/ul (4.8-10.8) H 07/22/23 14:48 RBC 4.54 M/uL (4.20-5.40) 07/22/23 14:48 Hgb 13.7 g/dl (12.0-16.0) 07/22/23 14:48 Hct 40.6 % (37.0-47.0) 07/22/23 14:48 MCV 89.4 fL (80.0-100.0) 07/22/23 14:48 MCH 30.2 pg (25.0-34.0) 07/22/23 14:48 MCHC 33.7 g/dL (32.0-36.0) 07/22/23 14:48 RDW Std Deviation 43.9 fL (36.4-46.3) 07/22/23 14:48 RDW Coeff of Liat 13.4 % (11.5-14.5) 07/22/23 14:48 Plt Count 283 K/uL (130-400) 07/22/23 14:48 MPV 9.5 fL (9.4-12.4) 07/22/23 14:48 Immature Gran % (Auto) 0.4 % 07/22/23 14:48 Neut % (Auto) 68.0 % 07/22/23 14:48 Lymph % (Auto) 23.4 % 07/22/23 14:48 [place] % (Auto) 6.3 % 07/22/23 14:48 Eos % (Auto) 1.5 % 07/22/23 14:48 Baso % (Auto) 0.4 % 07/22/23 14:48 Neut # (Auto) 10.76 K/uL (1.40-6.50) H 07/22/23 14:48 Lymph # (Auto) 3.70 K/uL (1.20-3.40) H 07/22/23 14:48 [place] # (Auto) 1.00 K/uL (0.11-0.59) H 07/22/23 14:48 Eos # (Auto) 0.24 K/uL (0.00-0.50) 07/22/23 14:48 Baso # (Auto) 0.07 K/uL (0.00-0.20) 07/22/23 14:48 Immature Gran # (Auto) 0.07 K/uL (0.01-0.20) 07/22/23 14:48 Sodium 136 mmol/L (136-145) 07/22/23 14:48 Potassium 3.9 mmol/L (3.5-5.1) 07/22/23 14:48 Chloride 103 mmol/L (98-107) 07/22/23 14:48 Carbon Dioxide 26 mmol/L (21-32) 07/22/23 14:48 Anion Gap 7 (3-11) 07/22/23 14:48 BUN 10 mg/dl (6-23) 07/22/23 14:48 Creatinine 0.80 mg/dl (0.6-1.2) 07/22/23 14:48 Est Cr Clr Drug Dosing 98.6 ml/min 07/22/23 14:48 Est GFR ( Amer) 98.9 ml/min 07/22/23 14:48 Est GFR (Non-Af Amer) 85.4 ml/min 07/22/23 14:48 BUN/Creatinine Ratio 12.5 (10-20) 07/22/23 14:48 Glucose 100 mg/dl (70-99(Fasting)) H 07/22/23 14:48 Calcium 9.3 mg/dl (8.6-10.3) 07/22/23 14:48 Total Bilirubin 0.4 mg/dl (0.2-1.0) 07/22/23 14:48 AST 14 U/L (13-39) 07/22/23 14:48 ALT 19 U/L (7-52) 07/22/23 14:48 Alkaline Phosphatase 85 U/L (34-104) 07/22/23 14:48 Troponin I High Sens 3.8 pg/ml (0-14) 07/22/23 14:48 Total Protein 7.6 gm/dl (6.0-8.3) 07/22/23 14:48 Albumin 4.4 gm/dl (3.4-5.0) 07/22/23 14:48 Globulin 3.2 gm/dl (2.5-4.0) 07/22/23 14:48 Albumin/Globulin Ratio 1.4 (0.9-2) 07/22/23 14:48 Lipase 12 U/L (11-82) 07/22/23 14:48 HCG, Qual Negative (Negative) 07/22/23 14:48 Urine Color Yellow 07/22/23 14:48 Urine Appearance Clear (Clear) 07/22/23 14:48 Urine pH 6.5 (4.5-7.5) 07/22/23 14:48 Ur Specific [place] 1.005 (1.000-1.030) 07/22/23 14:48 Urine Protein Negative (Negative) 07/22/23 14:48 Urine Glucose (UA) Negative (Negative) 07/22/23 14:48 Urine Ketones Negative (Negative) 07/22/23 14:48 Urine Blood Negative (Negative) 07/22/23 14:48 Urine Nitrite Negative (Negative) 07/22/23 14:48 Urine Bilirubin Negative (Negative) 07/22/23 14:48 Urine Urobilinogen Negative (Negative) 07/22/23 14:48 Ur Leukocyte Esterase Negative (Negative) 07/22/23 14:48 Adenovirus (PCR) Not Detected (NotDetected) 07/22/23 14:48 B. pertussis DNA (PCR) Not Detected (NotDetected) 07/22/23 14:48 B.parapertussis DNA PCR Not Detected (NotDetected) 07/22/23 14:48 C. pneumoniae DNA (PCR) Not Detected (NotDetected) 07/22/23 14:48 Coronavirus OC43 (PCR) Not Detected (NotDetected) 07/22/23 14:48 Coronavirus HKU1 (PCR) Not Detected (NotDetected) 07/22/23 14:48 Coronavirus 229E (PCR) Not Detected (NotDetected) 07/22/23 14:48 SARS-CoV-2 (PCR) Not Detected (NotDetected) 07/22/23 14:48 Coronavirus NL63 (PCR) Not Detected (NotDetected) 07/22/23 14:48 Human Metapneumovir PCR Not Detected (NotDetected) 07/22/23 14:48 Influenza Type A (PCR) Not Detected (NotDetected) 07/22/23 14:48 Influenza Type B (PCR) Not Detected (NotDetected) 07/22/23 14:48 M. pneumoniae (PCR) Not Detected (NotDetected) 07/22/23 14:48 Parainfluenza 1 (PCR) Not Detected (NotDetected) 07/22/23 14:48 Parainfluenza 2 (PCR) Not Detected (NotDetected) 07/22/23 14:48 Parainfluenza 3 (PCR) Not Detected (NotDetected) 07/22/23 14:48 Parainfluenza 4 (PCR) Not Detected (NotDetected) 07/22/23 14:48 RSV (PCR) Not Detected (NotDetected) 07/22/23 14:48 Entero/Rhino (PCR) Not Detected (NotDetected) 07/22/23 14:48 Impressions Abdomen/Pelvis CT 07/22/23 14:39 CT OF THE ABDOMEN AND PELVIS WITH CONTRAST CLINICAL HISTORY: LUQ pain, hx of resection COMPARISON STUDY: CT of the abdomen and pelvis April 10, 2023. KUB April 12, 2023. TECHNIQUE: Following IV administration of 93 mL of Optiray, axial images of the abdomen and pelvis were obtained from the lung bases to the proximal femurs. Images were reviewed in the axial, sagittal, and coronal planes. IV contrast was administered without complication. Automated exposure control was utilized for the study. A dose lowering technique was utilized adhering to the principles of ALARA. CT DOSE: 1587.30 mGy.cm FINDINGS: Lung bases are unremarkable. No pneumatosis, free air or portal venous gas is present. There is no biliary ductal dilatation status post cholecystectomy. Spleen, adrenal glands and pancreas are unremarkable. Several bilateral renal calculi measure up to 5 mm. There are no ureteral calculi. There is slight dilatation of the mid left ureter. This is likely due to inflammation related to diverticulitis of the distal descending and proximal sigmoid colon. Colonic wall thickening is noted with extensive colonic diverticulosis. There is moderate associated inflammation. No free air or abscess is present. Interval resection of the splenic flexure of the colon is noted. Interval partial left colectomy is noted. Minimal stranding adjacent to these remaining splenic flexure of the colon is noted. This is likely postsurgical. Postoperative findings within the anterior abdominal wall are noted. There is no fluid collection. Previous sigmoid resection is noted. No evidence for a bowel obstruction. The appendix is surgically absent. Major vasculature is patent. There is no lymphadenopathy. IMPRESSION: 1. Acute diverticulitis of the distal descending and proximal sigmoid colon. Colonic diverticulosis with colonic wall thickening. Moderate inflammation. No free air or abscess. 2. Interval partial left colectomy. Minimal thickening adjacent to the splenic flexure of the colon is likely postsurgical. No additional sites of bowel wall thickening. 3. No bowel obstruction. 4. Bilateral nephrolithiasis. No ureteral calculi or hydronephrosis. Mild dilatation of the distal left ureter likely due to mass effect upon the ureter by inflammation related to diverticulitis. ACT 112: Negative or not required by law. Electronically signed by: Henry Epstein M.D. 07/22/2023 4:21 PM
[2023-07-22] MEDS: SODIUM CHLORIDE 0.9% 1,000 ML IV SCH (17:45)
[2023-07-22] MEDS: metroNIDAZOLE 500 MG/100 ML BAG IV SCH (19:51)
[2023-07-22] MEDS ORDERED: ONDANSETRON INJ 2 MG/ML 2 ML VIAL IV STA (20:21)
[2023-07-22] MEDS: HYDROmorphone INJ 0.5 MG/0.5 ML SYR IV PRN (20:55)
[2023-07-22] MEDS: VENLAFAXINE HCL XR 150 MG CAPXR PO SCH (21:06)
--- NOTE | 2023-07-22 21:16 | Surgery Consultation ---
Date of Consultation July 22, 2023 Assessment & Plan (1) Acute diverticulitis: Plan 53-year-old woman presents 7 weeks status post resection for diverticulitis in [place] with new area of diverticulitis in her descending colon. There is no perforation or abscess. She has been admitted to the hospital. She will be kept on bowel rest and IV fluids. She is on IV antibiotics. We will continue to monitor her. History of Present Illness Reason for Consultation: Diverticulitis Requesting Physician: Coy Nunez MD Attending Physician: Coy Nunez MD History of Present Illness 53-year-old woman with a long history of diverticulitis 7 weeks status post sigmoid resection for diverticulitis presents with 4-day history of fevers, chills, pain in her left lower quadrant. She has been having some diarrhea. She denies nausea or vomiting. She denies other complaints. Allergies Allergy/AdvReac Type Severity Reaction Status Date / Time ibuprofen Allergy Severe Shortness Verified 03/22/23 22:48 of breath and hives ketorolac Allergy Severe HIVES/DIFFICULTY Verified 03/22/23 22:48 BREATHING moxifloxacin Allergy Severe Shortness Verified 03/22/23 22:48 of breath/dizziness Penicillins Allergy Severe Anaphylaxis Verified 03/22/23 22:48 /HIVES Sulfa (Sulfonamide Allergy Severe Shortness Verified 03/22/23 22:48 Antibiotics) of breath and hives tramadol Allergy Severe HIVES/DIFFICULTY Verified 03/22/23 22:48 BREATHING aspirin Allergy Unknown Unknown Verified 03/22/23 22:48 dicyclomine [From Bentyl] AdvReac Intermediate Constipatio Verified 03/22/23 22:48 n haloperidol AdvReac Intermediate "KEEPS ME Verified 03/22/23 22:48 AWAKE, CAN'T SLEEP". hydrocodone AdvReac Intermediate Vomiting Verified 03/22/23 22:49 prochlorperazine AdvReac Intermediate MOTOR Verified 03/22/23 22:49 RESTLESSNESS Home Medications Medication Instructions Recorded Confirmed Type albuterol sulfate 90 mcg/actuation 2 puff inhalation Q4H PRN Wheezing 07/23/18 07/22/23 History aerosol inhaler (Ventolin HFA) epinephrine 0.3 mg/0.3 mL 0.3 mg IM DIRECTED PRN Allergic 07/23/18 07/22/23 History injection, auto-injector (EpiPen Reaction 2-Cisco) venlafaxine 150 mg 300 mg PO HS 07/23/18 07/22/23 History capsule,extended release 24 hr acetaminophen 500 mg tablet 1,000 mg PO QID PRN Pain 02/27/23 07/22/23 History Patient History Medical History Asthma Depression Facial pain DWAYNE (generalized anxiety disorder) Gastroparesis Generalized pruritus GERD (gastroesophageal reflux disease) History of Clostridium difficile colitis HLD (hyperlipidemia) IBS (irritable bowel syndrome) Migraine Osteomyelitis Pancreatitis Squamous cell carcinoma of left shoulder Suicide attempt by drug ingestion On 04/21/16 10:30 Helene Rene wrote "03/22/2016" TIA (transient ischemic attack) Surgical History H/O colonoscopy H/O esophagogastroduodenoscopy H/O tubal ligation H/O unilateral oophorectomy History of colectomy due to diverticulitis 2009, Dr. Mancuso 2008 Hx of appendectomy Hx of tonsillectomy S/P cholecystectomy S/P MARLON (total abdominal hysterectomy) Family History Father Type 2 diabetes mellitus Mother Myocardial infarction Social History Smoking Status: Current every day smoker Tobacco Type: Cigarettes Cigarettes Per Day: 10; Second Hand Exposure: Yes; Do You Dip or Chew Tobacco: No; Hx Alcohol Use: No Hx Substance Use: No Preferred Language: Georgian Communication Ability: Effective Senior Business Broker Required: No Beliefs That Will Affect Care: None Current Living Situation: Alone Feels Safe at Home: Yes Assistive Devices: None Review of Systems Review of Systems: All systems reviewed & are unremarkable except as noted in HPI & below Physical Exam Constitutional: WD/WN, vitals as above Eyes: PERRL, conjunctivae normal, anicteric sclerae Neck: trachea midline, no thyromegaly Respiratory: normal respiratory effort; no respiratory distress and no labored breathing Cardiovascular: Rate/Rhythm: regular rate and regular rhythm Gastrointestinal (Abdomen): Inspection/Auscultation: abdomen normal to inspection; abdomen not distended Percussion/Palpation: + abdomen tender (Left side) and abdomen soft; no guarding and abdomen not rigid Skin: no rashes, warm and dry Psychiatric: A+Ox3, euthymic affect Results & Data Vital Signs (Past 12 Hours) Vital Signs Temp Pulse Pulse Pulse Resp BP BP 07/22/23 20:42 37.1 C 114 H 20 175/91 H 07/22/23 19:49 98 H 07/22/23 19:54 92 H 18 163/107 H 07/22/23 18:00 93 H 21 07/22/23 18:00 151/90 H 07/22/23 17:00 94 H 20 07/22/23 17:00 152/105 H 07/22/23 16:12 07/22/23 15:03 104 H 16 07/22/23 15:03 148/106 H 07/22/23 15:03 148/106 H 07/22/23 15:51 94 H 07/22/23 14:38 100 H 18 07/22/23 15:10 102 H 17 142/106 H 07/22/23 14:08 36.8 C 120 H 18 178/108 H Pulse Ox O2 Del Method 07/22/23 20:42 95 Room Air 07/22/23 19:49 07/22/23 19:54 91 Room Air 07/22/23 18:00 92 07/22/23 18:00 07/22/23 17:00 94 07/22/23 17:00 07/22/23 16:12 95 07/22/23 15:03 94 07/22/23 15:03 07/22/23 15:03 07/22/23 15:51 07/22/23 14:38 91 Room Air 07/22/23 15:10 92 Room Air 07/22/23 14:08 96 Room Air Laboratory Results 07/22/23 07/22/23 07/22/23 Range/Units 14:48 14:48 14:48 WBC (4.8-10.8) K/ul RBC (4.20-5.40) M/uL Hgb (12.0-16.0) g/dl Hct (37.0-47.0) % MCV (80.0-100.0) fL MCH (25.0-34.0) pg MCHC (32.0-36.0) g/dL RDW Std Deviation (36.4-46.3) fL RDW Coeff of Liat (11.5-14.5) % Plt Count (130-400) K/uL MPV (9.4-12.4) fL Immature Gran % (Auto) % Neut % (Auto) % Lymph % (Auto) % [place] % (Auto) % Eos % (Auto) % Baso % (Auto) % Neut # (Auto) (1.40-6.50) K/uL Lymph # (Auto) (1.20-3.40) K/uL [place] # (Auto) (0.11-0.59) K/uL Eos # (Auto) (0.00-0.50) K/uL Baso # (Auto) (0.00-0.20) K/uL Immature Gran # (Auto) (0.01-0.20) K/uL Sodium (136-145) mmol/L Potassium (3.5-5.1) mmol/L Chloride (98-107) mmol/L Carbon Dioxide (21-32) mmol/L Anion Gap (3-11) BUN (6-23) mg/dl Creatinine (0.6-1.2) mg/dl Est Cr Clr Drug Dosing ml/min Est GFR ( Amer) ml/min Est GFR (Non-Af Amer) ml/min BUN/Creatinine Ratio (10-20) Glucose (70-99(Fasting)) mg/dl Calcium (8.6-10.3) mg/dl Total Bilirubin (0.2-1.0) mg/dl AST (13-39) U/L ALT (7-52) U/L Alkaline Phosphatase (34-104) U/L Troponin I High Sens (0-14) pg/ml Total Protein (6.0-8.3) gm/dl Albumin (3.4-5.0) gm/dl Globulin (2.5-4.0) gm/dl Albumin/Globulin Ratio (0.9-2) Lipase (11-82) U/L HCG, Qual Negative (Negative) Urine Color Yellow Urine Appearance Clear (Clear) Urine pH 6.5 (4.5-7.5) Ur Specific [place] 1.005 (1.000-1.030) Urine Protein Negative (Negative) Urine Glucose (UA) Negative (Negative) Urine Ketones Negative (Negative) Urine Blood Negative (Negative) Urine Nitrite Negative (Negative) Urine Bilirubin Negative (Negative) Urine Urobilinogen Negative (Negative) Ur Leukocyte Esterase Negative (Negative) Adenovirus (PCR) Not Detected (NotDetected) B. pertussis DNA (PCR) Not Detected (NotDetected) B.parapertussis DNA PCR Not Detected (NotDetected) C. pneumoniae DNA (PCR) Not Detected (NotDetected) Coronavirus OC43 (PCR) Not Detected (NotDetected) Coronavirus HKU1 (PCR) Not Detected (NotDetected) Coronavirus 229E (PCR) Not Detected (NotDetected) SARS-CoV-2 (PCR) Not Detected (NotDetected) Coronavirus NL63 (PCR) Not Detected (NotDetected) Human Metapneumovir PCR Not Detected (NotDetected) Influenza Type A (PCR) Not Detected (NotDetected) Influenza Type B (PCR) Not Detected (NotDetected) M. pneumoniae (PCR) Not Detected (NotDetected) Parainfluenza 1 (PCR) Not Detected (NotDetected) Parainfluenza 2 (PCR) Not Detected (NotDetected) Parainfluenza 3 (PCR) Not Detected (NotDetected) Parainfluenza 4 (PCR) Not Detected (NotDetected) RSV (PCR) Not Detected (NotDetected) Entero/Rhino (PCR) Not Detected (NotDetected) 07/22/23 07/22/23 Range/Units 14:48 14:48 WBC 15.84 H (4.8-10.8) K/ul RBC 4.54 (4.20-5.40) M/uL Hgb 13.7 (12.0-16.0) g/dl Hct 40.6 (37.0-47.0) % MCV 89.4 (80.0-100.0) fL MCH 30.2 (25.0-34.0) pg MCHC 33.7 (32.0-36.0) g/dL RDW Std Deviation 43.9 (36.4-46.3) fL RDW Coeff of Liat 13.4 (11.5-14.5) % Plt Count 283 (130-400) K/uL MPV 9.5 (9.4-12.4) fL Immature Gran % (Auto) 0.4 % Neut % (Auto) 68.0 % Lymph % (Auto) 23.4 % [place] % (Auto) 6.3 % Eos % (Auto) 1.5 % Baso % (Auto) 0.4 % Neut # (Auto) 10.76 H (1.40-6.50) K/uL Lymph # (Auto) 3.70 H (1.20-3.40) K/uL [place] # (Auto) 1.00 H (0.11-0.59) K/uL Eos # (Auto) 0.24 (0.00-0.50) K/uL Baso # (Auto) 0.07 (0.00-0.20) K/uL Immature Gran # (Auto) 0.07 (0.01-0.20) K/uL Sodium 136 (136-145) mmol/L Potassium 3.9 (3.5-5.1) mmol/L Chloride 103 (98-107) mmol/L Carbon Dioxide 26 (21-32) mmol/L Anion Gap 7 (3-11) BUN 10 (6-23) mg/dl Creatinine 0.80 (0.6-1.2) mg/dl Est Cr Clr Drug Dosing 98.6 ml/min Est GFR ( Amer) 98.9 ml/min Est GFR (Non-Af Amer) 85.4 ml/min BUN/Creatinine Ratio 12.5 (10-20) Glucose 100 H (70-99(Fasting)) mg/dl Calcium 9.3 (8.6-10.3) mg/dl Total Bilirubin 0.4 (0.2-1.0) mg/dl AST 14 (13-39) U/L ALT 19 (7-52) U/L Alkaline Phosphatase 85 (34-104) U/L Troponin I High Sens 3.8 (0-14) pg/ml Total Protein 7.6 (6.0-8.3) gm/dl Albumin 4.4 (3.4-5.0) gm/dl Globulin 3.2 (2.5-4.0) gm/dl Albumin/Globulin Ratio 1.4 (0.9-2) Lipase 12 (11-82) U/L HCG, Qual (Negative) Urine Color Urine Appearance (Clear) Urine pH (4.5-7.5) Ur Specific [place] (1.000-1.030) Urine Protein (Negative) Urine Glucose (UA) (Negative) Urine Ketones (Negative) Urine Blood (Negative) Urine Nitrite (Negative) Urine Bilirubin (Negative) Urine Urobilinogen (Negative) Ur Leukocyte Esterase (Negative) Adenovirus (PCR) (NotDetected) B. pertussis DNA (PCR) (NotDetected) B.parapertussis DNA PCR (NotDetected) C. pneumoniae DNA (PCR) (NotDetected) Coronavirus OC43 (PCR) (NotDetected) Coronavirus HKU1 (PCR) (NotDetected) Coronavirus 229E (PCR) (NotDetected) SARS-CoV-2 (PCR) (NotDetected) Coronavirus NL63 (PCR) (NotDetected) Human Metapneumovir PCR (NotDetected) Influenza Type A (PCR) (NotDetected) Influenza Type B (PCR) (NotDetected) M. pneumoniae (PCR) (NotDetected) Parainfluenza 1 (PCR) (NotDetected) Parainfluenza 2 (PCR) (NotDetected) Parainfluenza 3 (PCR) (NotDetected) Parainfluenza 4 (PCR) (NotDetected) RSV (PCR) (NotDetected) Entero/Rhino (PCR) (NotDetected) Diagnostic Findings CT OF THE ABDOMEN AND PELVIS WITH CONTRAST CLINICAL HISTORY: LUQ pain, hx of resection COMPARISON STUDY: CT of the abdomen and pelvis April 10, 2023. KUB April 12, 2023. TECHNIQUE: Following IV administration of 93 mL of Optiray, axial images of the abdomen and pelvis were obtained from the lung bases to the proximal femurs. Images were reviewed in the axial, sagittal, and coronal planes. IV contrast was administered without complication. Automated exposure control was utilized for the study. A dose lowering technique was utilized adhering to the principles of ALARA. CT DOSE: 1587.30 mGy.cm FINDINGS: Lung bases are unremarkable. No pneumatosis, free air or portal venous gas is present. There is no biliary ductal dilatation status post cholecystectomy. Spleen, adrenal glands and pancreas are unremarkable. Several bilateral renal calculi measure up to 5 mm. There are no ureteral calculi. There is slight dilatation of the mid left ureter. This is likely due to inflammation related to diverticulitis of the distal descending and proximal sigmoid colon. Colonic wall thickening is noted with extensive colonic diverticulosis. There is moderate associated inflammation. No free air or abscess is present. Interval resection of the splenic flexure of the colon is noted. Interval partial left colectomy is noted. Minimal stranding adjacent to these remaining splenic flexure of the colon is noted. This is likely postsurgical. Postoperative findings within the anterior abdominal wall are noted. There is no fluid collection. Previous sigmoid resection is noted. No evidence for a bowel obstruction. The appendix is surgically absent. Major vasculature is patent. There is no lymphadenopathy. IMPRESSION: 1. Acute diverticulitis of the distal descending and proximal sigmoid colon. Colonic diverticulosis with colonic wall thickening. Moderate inflammation. No free air or abscess. 2. Interval partial left colectomy. Minimal thickening adjacent to the splenic flexure of the colon is likely postsurgical. No additional sites of bowel wall thickening. 3. No bowel obstruction. 4. Bilateral nephrolithiasis. No ureteral calculi or hydronephrosis. Mild dilatation of the distal left ureter likely due to mass effect upon the ureter by inflammation related to diverticulitis.
[2023-07-23] MEDS: HYDROmorphone INJ 0.5 MG/0.5 ML SYR IV PRN ×7 (00:47→20:03)
[2023-07-23] MEDS: metroNIDAZOLE 500 MG/100 ML BAG IV SCH ×3 (03:37→19:15)
[2023-07-23] MEDS: SODIUM CHLORIDE 0.9% 1,000 ML IV SCH ×2 (03:37→13:41)
[2023-07-23] MEDS: ONDANSETRON INJ 2 MG/ML 2 ML VIAL IV PRN ×2 (03:38→16:23)
[2023-07-23 08:19] LABS: Basophils # (auto) 0.03 K/uL (0.00-0.20); Basophils % (auto) 0.2 %; Eosinophils # (auto) 0.17 K/uL (0.00-0.50); Eosinophils % (auto) 1.4 %; Hemoglobin 12.5 g/dl (12.0-16.0); Immature Granulocytes # (auto) 0.04 K/uL (0.01-0.20); Immature Granulocytes % (auto) 0.3 %; Lymphocytes # (auto) 2.54 K/uL (1.20-3.40); Lymphocytes % (auto) 20.9 %; Mean Corpuscular Hemoglobin 29.4 pg (25.0-34.0); Mean Corpuscular Hgb Conc 32.1 g/dL (32.0-36.0); Mean Corpuscular Volume 91.8 fL (80.0-100.0); Mean Platelet Volume 9.5 fL (9.4-12.4); Monocytes # (auto) 0.99 K/uL (0.11-0.59); Monocytes % (auto) 8.1 %; Neutrophils # (auto) 8.38 K/uL (1.40-6.50); Neutrophils % (auto) 69.1 %; Platelet Count 253 K/uL (130-400); RDW Coefficient of Variation 13.5 % (11.5-14.5); RDW Standard Deviation 46.2 fL (36.4-46.3); Red Blood Count 4.25 M/uL (4.20-5.40); White Blood Count 12.15 K/ul (4.8-10.8)
--- NOTE | 2023-07-23 08:38 | Hospitalist Progress Note ---
Date of Service July 23, 2023 Assessment & Plan (1) Acute diverticulitis: Plan: Ms. Matthews is a 53 year old woman with past medical history of recurrent diverticulitis with partial sigmoid colectomy with anastomosis in 2008, [place] [facility] [place] for concern of diverticulitis [place]22. Patient with ongoing pain for >72 hours prompting presentation to ED. On admission,WBC15.[address] AP with acute diverticulitis of the distal descending and proximal sigmoid colon with moderate inflammation, as well as no free air or abscess present and minimal thickening adjacent to the splenic flexure of the colon likely postsurgical. Review of outside record reports multiple episodes of diverticulitis around the splenic flexure prompting the resection on 06/02. Last hospitalization was 06/01-06/03 with conservative management and PO abx. #Acute recurrent diverticulitis #Chronic diverticulosis s/p sigmoid colectomy (05/2023) -Missed OP surgery follow up 06/15 Bowel rest with n.p.o. with sips with meds/ice chips IV fluids with normal saline IV antibiotic with ceftriaxone and Flagyl IV Tylenol every 8 hours for pain control and as needed Dilaudid Surgery consult: conservative management Other conditions; Mood disordervenlafaxine, continue DVT prophylaxis heparin Full code Admission and Anticipated Discharge Date Admission Date: July 22, 2023 Subjective NAEO Still endorses abdominal pain, more diffuse in nature Denies nausea, diarrhea, vomiting Review of Systems Review of Systems: All systems reviewed & are unremarkable except as noted in Subjective Physical Exam Constitutional: WD/WN, vitals as above Cardiovascular: RRR, no murmur, no edema Gastrointestinal (Abdomen): soft, nondistended Results & Data Results & Data Vital Signs (Past 12 Hours) Vital Signs Temp Pulse Resp BP Pulse Ox O2 Del Method 07/23/23 08:33 37.5 C 102 H 18 139/84 92 Room Air 07/23/23 04:20 102 H 95 Room Air 07/22/23 20:42 Room Air 07/22/23 20:42 37.1 C 114 H 20 175/91 H 95 Room Air 07/22/23 20:42 Room Air 07/22/23 20:42 37.1 C 114 H 20 175/91 H 95 Room Air Laboratory Results Short CBC 07/22/23 07/23/23 Range/Units 14:48 07:22 WBC 15.84 H 12.15 H (4.8-10.8) K/ul Hgb 13.7 12.5 (12.0-16.0) g/dl Hct 40.6 39.0 (37.0-47.0) % Plt Count 283 253 (130-400) K/uL BMP 07/22/23 07/23/23 14:48 07:22 Sodium 136 138 Potassium 3.9 4.0 Chloride 103 107 Carbon Dioxide 26 25 BUN 10 7 Creatinine 0.80 0.72 Glucose 100 H 103 H Calcium 9.3 8.1 L Liver Function 07/22/23 Range/Units 14:48 Total Bilirubin 0.4 (0.2-1.0) mg/dl AST 14 (13-39) U/L ALT 19 (7-52) U/L Alkaline Phosphatase 85 (34-104) U/L Albumin 4.4 (3.4-5.0) gm/dl Urine 07/22/23 Range/Units 14:48 Urine Color Yellow Urine Appearance Clear (Clear) Urine pH 6.5 (4.5-7.5) Ur Specific [place] 1.005 (1.000-1.030) Urine Protein Negative (Negative) Urine Glucose (UA) Negative (Negative) Medications Administered Home Medications Medication Instructions Recorded Confirmed Last Taken albuterol sulfate 90 mcg/actuation 2 puff inhalation Q4H PRN Wheezing 07/23/18 07/22/23 07/06/19 aerosol inhaler (Ventolin HFA) epinephrine 0.3 mg/0.3 mL 0.3 mg IM DIRECTED PRN Allergic 07/23/18 07/22/23 Unknown injection, auto-injector (EpiPen Reaction 2-Cisco) venlafaxine 150 mg 300 mg PO HS 07/23/18 07/22/23 07/21/23 capsule,extended release 24 hr acetaminophen 500 mg tablet 1,000 mg PO QID PRN Pain 02/27/23 07/22/23 03/22/23 20:00 Active Medications Generic Name Dose Route Start Last Admin Trade Name Freq PRN Reason Stop Dose Admin Hydromorphone HCl 0.5 mg 07/22/23 17:30 07/23/23 07:25 Hydromorphone Inj 0.5 Mg/0.5 Ml Syr IV 08/05/23 17:29 0.5 mg Q3H PRN Administration Pain Ceftriaxone Sodium 2,000 mg/ 70 mls @ 100 mls/hr 07/22/23 16:45 07/22/23 18:09 Dextrose IV 07/24/23 16:44 Infused Q24H NIRAJ Infusion Protocol Metronidazole 500 mg in 100 mls @ 100 mls/hr 07/22/23 19:00 07/23/23 04:38 Flagyl IV 08/01/23 18:59 Infused Q8H NIRAJ Infusion Protocol Sodium Chloride 1,000 mls @ 100 mls/hr 07/22/23 17:45 07/23/23 03:37 Nss IV 08/21/23 17:44 100 mls/hr .Q10H NIRAJ Administration Ondansetron HCl 4 mg 07/23/23 03:17 07/23/23 03:38 Ondansetron Inj 2 Mg/Ml 2 Ml Vial IV 08/22/23 03:16 4 mg Q6H PRN Administration Nausea And Vomiting Venlafaxine HCl 300 mg 07/22/23 21:00 07/22/23 21:06 Venlafaxine Hcl Xr 150 Mg Capxr PO 08/21/23 20:59 300 mg HS NIRAJ Administration
[2023-07-23 08:39] LABS: BUN Creatinine Ratio 9.7 (10-20); Calcium 8.1 mg/dl (8.6-10.3); Creatinine Clr Calc Pharmacy 109.3 ml/min; Est GFR (African American) 112.4 ml/min
--- NOTE | 2023-07-23 09:29 | Electrocardiogram Report ---
Test Reason : Blood Pressure : / mmHG Vent. Rate : 102 BPM Atrial Rate : 102 BPM P-R Int : 118 ms QRS Dur : 074 ms QT Int : 318 ms P-R-T Axes : 053 060 037 degrees QTc Int : 414 ms Sinus tachycardia Diffuse Minor Nonspecific T wave abnormality Abnormal ECG When compared with ECG of 28-FEB-2023 09:10, No significant change Confirmed by Bernard Funez ([id number]) on 07/23/2023 9:29:37 AM Referred By: REFERRED SELF Confirmed By:Bernard Funez
--- NOTE | 2023-07-23 09:58 | Surgery Progress Note ---
Date of Service July 23, 2023 Assessment & Plan (1) Acute diverticulitis: Plan Acute diverticulitis in descending colon 7 weeks status post sigmoid colectomy for diverticulosis. Continue IV antibiotics, sips and chips Encourage ambulation Continue to monitor labs We will continue to follow Admission and Anticipated Discharge Date Admission Date: July 22, 2023 Subjective Feeling about the same today. No nausea or vomiting. Still with pain in the left abdomen. No fevers or chills. Physical Exam Physical Exam: AFVSS NAD, A&O x3 Abdomen: Soft, nondistended TTP in left lower quadrant Results & Data Vital Signs (Past 12 Hours) Vital Signs Temp Pulse Resp BP Pulse Ox O2 Del Method 07/23/23 08:33 37.5 C 102 H 18 139/84 92 Room Air 07/23/23 04:20 102 H 95 Room Air Laboratory Results 07/23/23 07/23/23 07/22/23 Range/Units 07:22 07:22 14:48 WBC 12.15 H (4.8-10.8) K/ul RBC 4.25 (4.20-5.40) M/uL Hgb 12.5 (12.0-16.0) g/dl Hct 39.0 (37.0-47.0) % MCV 91.8 (80.0-100.0) fL MCH 29.4 (25.0-34.0) pg MCHC 32.1 (32.0-36.0) g/dL RDW Std Deviation 46.2 (36.4-46.3) fL RDW Coeff of Liat 13.5 (11.5-14.5) % Plt Count 253 (130-400) K/uL MPV 9.5 (9.4-12.4) fL Immature Gran % (Auto) 0.3 % Neut % (Auto) 69.1 % Lymph % (Auto) 20.9 % [place] % (Auto) 8.1 % Eos % (Auto) 1.4 % Baso % (Auto) 0.2 % Neut # (Auto) 8.38 H (1.40-6.50) K/uL Lymph # (Auto) 2.54 (1.20-3.40) K/uL [place] # (Auto) 0.99 H (0.11-0.59) K/uL Eos # (Auto) 0.17 (0.00-0.50) K/uL Baso # (Auto) 0.03 (0.00-0.20) K/uL Immature Gran # (Auto) 0.04 (0.01-0.20) K/uL Sodium 138 (136-145) mmol/L Potassium 4.0 (3.5-5.1) mmol/L Chloride 107 (98-107) mmol/L Carbon Dioxide 25 (21-32) mmol/L Anion Gap 6 (3-11) BUN 7 (6-23) mg/dl Creatinine 0.72 (0.6-1.2) mg/dl Est Cr Clr Drug Dosing 109.3 ml/min Est GFR ( Amer) 112.4 ml/min Est GFR (Non-Af Amer) 97.0 ml/min BUN/Creatinine Ratio 9.7 L (10-20) Glucose 103 H (70-99(Fasting)) mg/dl Calcium 8.1 L (8.6-10.3) mg/dl Total Bilirubin (0.2-1.0) mg/dl AST (13-39) U/L ALT (7-52) U/L Alkaline Phosphatase (34-104) U/L Troponin I High Sens (0-14) pg/ml Total Protein (6.0-8.3) gm/dl Albumin (3.4-5.0) gm/dl Globulin (2.5-4.0) gm/dl Albumin/Globulin Ratio (0.9-2) Lipase (11-82) U/L HCG, Qual (Negative) Urine Color Yellow Urine Appearance Clear (Clear) Urine pH 6.5 (4.5-7.5) Ur Specific [place] 1.005 (1.000-1.030) Urine Protein Negative (Negative) Urine Glucose (UA) Negative (Negative) Urine Ketones Negative (Negative) Urine Blood Negative (Negative) Urine Nitrite Negative (Negative) Urine Bilirubin Negative (Negative) Urine Urobilinogen Negative (Negative) Ur Leukocyte Esterase Negative (Negative) Adenovirus (PCR) (NotDetected) B. pertussis DNA (PCR) (NotDetected) B.parapertussis DNA PCR (NotDetected) C. pneumoniae DNA (PCR) (NotDetected) Coronavirus OC43 (PCR) (NotDetected) Coronavirus HKU1 (PCR) (NotDetected) Coronavirus 229E (PCR) (NotDetected) SARS-CoV-2 (PCR) (NotDetected) Coronavirus NL63 (PCR) (NotDetected) Human Metapneumovir PCR (NotDetected) Influenza Type A (PCR) (NotDetected) Influenza Type B (PCR) (NotDetected) M. pneumoniae (PCR) (NotDetected) Parainfluenza 1 (PCR) (NotDetected) Parainfluenza 2 (PCR) (NotDetected) Parainfluenza 3 (PCR) (NotDetected) Parainfluenza 4 (PCR) (NotDetected) RSV (PCR) (NotDetected) Entero/Rhino (PCR) (NotDetected) 07/22/23 07/22/23 07/22/23 Range/Units 14:48 14:48 14:48 WBC (4.8-10.8) K/ul RBC (4.20-5.40) M/uL Hgb (12.0-16.0) g/dl Hct (37.0-47.0) % MCV (80.0-100.0) fL MCH (25.0-34.0) pg MCHC (32.0-36.0) g/dL RDW Std Deviation (36.4-46.3) fL RDW Coeff of Liat (11.5-14.5) % Plt Count (130-400) K/uL MPV (9.4-12.4) fL Immature Gran % (Auto) % Neut % (Auto) % Lymph % (Auto) % [place] % (Auto) % Eos % (Auto) % Baso % (Auto) % Neut # (Auto) (1.40-6.50) K/uL Lymph # (Auto) (1.20-3.40) K/uL [place] # (Auto) (0.11-0.59) K/uL Eos # (Auto) (0.00-0.50) K/uL Baso # (Auto) (0.00-0.20) K/uL Immature Gran # (Auto) (0.01-0.20) K/uL Sodium 136 (136-145) mmol/L Potassium 3.9 (3.5-5.1) mmol/L Chloride 103 (98-107) mmol/L Carbon Dioxide 26 (21-32) mmol/L Anion Gap 7 (3-11) BUN 10 (6-23) mg/dl Creatinine 0.80 (0.6-1.2) mg/dl Est Cr Clr Drug Dosing 98.6 ml/min Est GFR ( Amer) 98.9 ml/min Est GFR (Non-Af Amer) 85.4 ml/min BUN/Creatinine Ratio 12.5 (10-20) Glucose 100 H (70-99(Fasting)) mg/dl Calcium 9.3 (8.6-10.3) mg/dl Total Bilirubin 0.4 (0.2-1.0) mg/dl AST 14 (13-39) U/L ALT 19 (7-52) U/L Alkaline Phosphatase 85 (34-104) U/L Troponin I High Sens 3.8 (0-14) pg/ml Total Protein 7.6 (6.0-8.3) gm/dl Albumin 4.4 (3.4-5.0) gm/dl Globulin 3.2 (2.5-4.0) gm/dl Albumin/Globulin Ratio 1.4 (0.9-2) Lipase 12 (11-82) U/L HCG, Qual Negative (Negative) Urine Color Urine Appearance (Clear) Urine pH (4.5-7.5) Ur Specific [place] (1.000-1.030) Urine Protein (Negative) Urine Glucose (UA) (Negative) Urine Ketones (Negative) Urine Blood (Negative) Urine Nitrite (Negative) Urine Bilirubin (Negative) Urine Urobilinogen (Negative) Ur Leukocyte Esterase (Negative) Adenovirus (PCR) Not Detected (NotDetected) B. pertussis DNA (PCR) Not Detected (NotDetected) B.parapertussis DNA PCR Not Detected (NotDetected) C. pneumoniae DNA (PCR) Not Detected (NotDetected) Coronavirus OC43 (PCR) Not Detected (NotDetected) Coronavirus HKU1 (PCR) Not Detected (NotDetected) Coronavirus 229E (PCR) Not Detected (NotDetected) SARS-CoV-2 (PCR) Not Detected (NotDetected) Coronavirus NL63 (PCR) Not Detected (NotDetected) Human Metapneumovir PCR Not Detected (NotDetected) Influenza Type A (PCR) Not Detected (NotDetected) Influenza Type B (PCR) Not Detected (NotDetected) M. pneumoniae (PCR) Not Detected (NotDetected) Parainfluenza 1 (PCR) Not Detected (NotDetected) Parainfluenza 2 (PCR) Not Detected (NotDetected) Parainfluenza 3 (PCR) Not Detected (NotDetected) Parainfluenza 4 (PCR) Not Detected (NotDetected) RSV (PCR) Not Detected (NotDetected) Entero/Rhino (PCR) Not Detected (NotDetected) 07/22/23 Range/Units 14:48 WBC 15.84 H (4.8-10.8) K/ul RBC 4.54 (4.20-5.40) M/uL Hgb 13.7 (12.0-16.0) g/dl Hct 40.6 (37.0-47.0) % MCV 89.4 (80.0-100.0) fL MCH 30.2 (25.0-34.0) pg MCHC 33.7 (32.0-36.0) g/dL RDW Std Deviation 43.9 (36.4-46.3) fL RDW Coeff of Liat 13.4 (11.5-14.5) % Plt Count 283 (130-400) K/uL MPV 9.5 (9.4-12.4) fL Immature Gran % (Auto) 0.4 % Neut % (Auto) 68.0 % Lymph % (Auto) 23.4 % [place] % (Auto) 6.3 % Eos % (Auto) 1.5 % Baso % (Auto) 0.4 % Neut # (Auto) 10.76 H (1.40-6.50) K/uL Lymph # (Auto) 3.70 H (1.20-3.40) K/uL [place] # (Auto) 1.00 H (0.11-0.59) K/uL Eos # (Auto) 0.24 (0.00-0.50) K/uL Baso # (Auto) 0.07 (0.00-0.20) K/uL Immature Gran # (Auto) 0.07 (0.01-0.20) K/uL Sodium (136-145) mmol/L Potassium (3.5-5.1) mmol/L Chloride (98-107) mmol/L Carbon Dioxide (21-32) mmol/L Anion Gap (3-11) BUN (6-23) mg/dl Creatinine (0.6-1.2) mg/dl Est Cr Clr Drug Dosing ml/min Est GFR ( Amer) ml/min Est GFR (Non-Af Amer) ml/min BUN/Creatinine Ratio (10-20) Glucose (70-99(Fasting)) mg/dl Calcium (8.6-10.3) mg/dl Total Bilirubin (0.2-1.0) mg/dl AST (13-39) U/L ALT (7-52) U/L Alkaline Phosphatase (34-104) U/L Troponin I High Sens (0-14) pg/ml Total Protein (6.0-8.3) gm/dl Albumin (3.4-5.0) gm/dl Globulin (2.5-4.0) gm/dl Albumin/Globulin Ratio (0.9-2) Lipase (11-82) U/L HCG, Qual (Negative) Urine Color Urine Appearance (Clear) Urine pH (4.5-7.5) Ur Specific [place] (1.000-1.030) Urine Protein (Negative) Urine Glucose (UA) (Negative) Urine Ketones (Negative) Urine Blood (Negative) Urine Nitrite (Negative) Urine Bilirubin (Negative) Urine Urobilinogen (Negative) Ur Leukocyte Esterase (Negative) Adenovirus (PCR) (NotDetected) B. pertussis DNA (PCR) (NotDetected) B.parapertussis DNA PCR (NotDetected) C. pneumoniae DNA (PCR) (NotDetected) Coronavirus OC43 (PCR) (NotDetected) Coronavirus HKU1 (PCR) (NotDetected) Coronavirus 229E (PCR) (NotDetected) SARS-CoV-2 (PCR) (NotDetected) Coronavirus NL63 (PCR) (NotDetected) Human Metapneumovir PCR (NotDetected) Influenza Type A (PCR) (NotDetected) Influenza Type B (PCR) (NotDetected) M. pneumoniae (PCR) (NotDetected) Parainfluenza 1 (PCR) (NotDetected) Parainfluenza 2 (PCR) (NotDetected) Parainfluenza 3 (PCR) (NotDetected) Parainfluenza 4 (PCR) (NotDetected) RSV (PCR) (NotDetected) Entero/Rhino (PCR) (NotDetected)
[2023-07-23] MEDS: cefTRIAXone SODIUM 2,000 MG in DEXTROSE 5% 50 ML IV SCH (16:36)
[2023-07-23] MEDS: ACETAMINOPHEN 1,000 MG/100 ML VIAL IV PRN (18:43)
[2023-07-23] MEDS: VENLAFAXINE HCL XR 150 MG CAPXR PO SCH (20:03)
[2023-07-24] MEDS: SODIUM CHLORIDE 0.9% 1,000 ML IV SCH ×3 (01:45→21:25)
[2023-07-24] MEDS: HYDROmorphone INJ 0.5 MG/0.5 ML SYR IV PRN ×6 (01:45→23:57)
[2023-07-24] MEDS: metroNIDAZOLE 500 MG/100 ML BAG IV SCH ×3 (01:49→18:06)
[2023-07-24 07:22] LABS: Hematocrit (blood only) 37.6 % (37.0-47.0); Hemoglobin 12.1 g/dl (12.0-16.0); Mean Corpuscular Hemoglobin 29.2 pg (25.0-34.0); Mean Corpuscular Hgb Conc 32.2 g/dL (32.0-36.0); Mean Corpuscular Volume 90.8 fL (80.0-100.0); Mean Platelet Volume 9.3 fL (9.4-12.4); Platelet Count 249 K/uL (130-400); RDW Coefficient of Variation 13.2 % (11.5-14.5); RDW Standard Deviation 43.8 fL (36.4-46.3); Red Blood Count 4.14 M/uL (4.20-5.40); White Blood Count 11.09 K/ul (4.8-10.8)
[2023-07-24 07:41] LABS: BUN Creatinine Ratio 10.1 (10-20); Calcium 8.4 mg/dl (8.6-10.3); Creatinine Clr Calc Pharmacy 114.1 ml/min; Est GFR (African American) 116.8 ml/min; Est GFR (Non-African American) 100.8 ml/min; Phosphorus 2.9 mg/dl (2.5-4.9)
--- NOTE | 2023-07-24 08:56 | Hospitalist Progress Note ---
Date of Service July 24, 2023 Assessment & Plan (1) Acute diverticulitis: Plan: Ms. Matthews is a 53 year old woman with past medical history of recurrent diverticulitis with partial sigmoid colectomy with anastomosis in 2008, recent robotic laparoscopic partial colectomy in May 2023 at [facility] [place] who is admitted for concern of diverticulitis on 07/22. Patient with ongoing pain for >72 hours prompting presentation to ED. On admission,WBC15.[address] AP with acute diverticulitis of the distal descending and proximal sigmoid colon with moderate inflammation, as well as no free air or abscess present and minimal thickening adjacent to the splenic flexure of the colon likely postsurgical. Review of outside record reports multiple episodes of diverticulitis around the splenic flexure prompting the resection on 06/02. Last hospitalization was 06/01-06/03 with conservative management and PO abx. #Acute recurrent diverticulitis #Chronic diverticulosis s/p sigmoid colectomy (05/2023) -Missed OP surgery follow up 06/15 IV fluids with normal saline IV antibiotic with ceftriaxone and Flagyl IV Tylenol every 8 hours for pain control and as needed Dilaudid Surgery consult: conservative management GI: Miralax 1-2caps daily, low residue diet, cscope 4-6weeks -Advance to CLD and monitor Other conditions Mood disordervenlafaxine, continue DVT prophylaxis heparin Full code Admission and Anticipated Discharge Date Admission Date: July 22, 2023 Subjective States she is feeling better this morning, but still with discomfort Review of Systems Review of Systems: All systems reviewed & are unremarkable except as noted in Subjective Physical Exam Constitutional: WD/WN, vitals as above Cardiovascular: RRR, no murmur, no edema Gastrointestinal (Abdomen): tender abdomen, better than day prior Results & Data Results & Data Vital Signs (Past 12 Hours) Vital Signs Temp Pulse Resp BP Pulse Ox O2 Del Method 07/24/23 07:52 36.8 C 104 H 16 164/108 H 93 Room Air 07/23/23 21:40 158/86 H Laboratory Results Short CBC 07/24/23 Range/Units 06:52 WBC 11.09 H (4.8-10.8) K/ul Hgb 12.1 (12.0-16.0) g/dl Hct 37.6 (37.0-47.0) % Plt Count 249 (130-400) K/uL BMP 07/24/23 06:52 Sodium 140 Potassium 4.0 Chloride 107 Carbon Dioxide 26 BUN 7 Creatinine 0.69 Glucose 89 Calcium 8.4 L Medications Administered Home Medications Medication Instructions Recorded Confirmed Last Taken albuterol sulfate 90 mcg/actuation 2 puff inhalation Q4H PRN Wheezing 07/23/18 07/22/23 07/06/19 aerosol inhaler (Ventolin HFA) epinephrine 0.3 mg/0.3 mL 0.3 mg IM DIRECTED PRN Allergic 07/23/18 07/22/23 Unknown injection, auto-injector (EpiPen Reaction 2-Cisco) venlafaxine 150 mg 300 mg PO HS 07/23/18 07/22/23 07/21/23 capsule,extended release 24 hr acetaminophen 500 mg tablet 1,000 mg PO QID PRN Pain 02/27/23 07/22/23 03/22/23 20:00 Active Medications Generic Name Dose Route Start Last Admin Trade Name Freq PRN Reason Stop Dose Admin Hydromorphone HCl 0.5 mg 07/22/23 17:30 07/24/23 11:10 Hydromorphone Inj 0.5 Mg/0.5 Ml Syr IV 08/05/23 17:29 0.5 mg Q3H PRN Administration Pain Ceftriaxone Sodium 2,000 mg/ 70 mls @ 100 mls/hr 07/22/23 16:45 07/23/23 17:19 Dextrose IV 07/24/23 16:44 Infused Q24H NIRAJ Infusion Protocol Metronidazole 500 mg in 100 mls @ 100 mls/hr 07/22/23 19:00 07/24/23 12:40 Flagyl IV 08/01/23 18:59 Infused Q8H NIRAJ Infusion Protocol Acetaminophen 1,000 mg in 100 mls @ 400 mls/hr 07/22/23 17:30 07/24/23 10:20 Ofirmev IV 07/25/23 17:29 Infused Q8H PRN Infusion Pain or Fever Sodium Chloride 1,000 mls @ 100 mls/hr 07/22/23 17:45 07/24/23 11:10 Nss IV 08/21/23 17:44 100 mls/hr .Q10H NIRAJ Administration Ondansetron HCl 4 mg 07/23/23 03:17 07/23/23 16:23 Ondansetron Inj 2 Mg/Ml 2 Ml Vial IV 08/22/23 03:16 4 mg Q6H PRN Administration Nausea And Vomiting Venlafaxine HCl 300 mg 07/22/23 21:00 07/23/23 20:03 Venlafaxine Hcl Xr 150 Mg Capxr PO 08/21/23 20:59 300 mg HS NIRAJ Administration
[2023-07-24] MEDS: ACETAMINOPHEN 1,000 MG/100 ML VIAL IV PRN (09:59)
--- NOTE | 2023-07-24 10:03 | Surgery Progress Note ---
Date of Service July 24, 2023 Assessment & Plan (1) Acute diverticulitis: Plan Acute diverticulitis in descending colon 7 weeks status post sigmoid colectomy for diverticulosis. Continue IV antibiotics May advance diet to clears Encourage ambulation Continue to monitor labs We will continue to follow Admission and Anticipated Discharge Date Admission Date: July 22, 2023 Subjective States she is feeling better this morning. Passing flatus but no bowel movements. No nausea or vomiting. No fevers overnight. Physical Exam Physical Exam: AFVSS NAD, A&O x3 Abdomen: Soft, nondistended TTP in left lower quadrant Results & Data Vital Signs (Past 12 Hours) Vital Signs Temp Pulse Resp BP BP Pulse Ox O2 Del Method 07/24/23 09:54 150/90 H 07/24/23 07:52 36.8 C 104 H 16 164/108 H 93 Room Air Laboratory Results 07/24/23 07/24/23 Range/Units 06:52 06:52 WBC 11.09 H (4.8-10.8) K/ul RBC 4.14 L (4.20-5.40) M/uL Hgb 12.1 (12.0-16.0) g/dl Hct 37.6 (37.0-47.0) % MCV 90.8 (80.0-100.0) fL MCH 29.2 (25.0-34.0) pg MCHC 32.2 (32.0-36.0) g/dL RDW Std Deviation 43.8 (36.4-46.3) fL RDW Coeff of Liat 13.2 (11.5-14.5) % Plt Count 249 (130-400) K/uL MPV 9.3 L (9.4-12.4) fL Sodium 140 (136-145) mmol/L Potassium 4.0 (3.5-5.1) mmol/L Chloride 107 (98-107) mmol/L Carbon Dioxide 26 (21-32) mmol/L Anion Gap 7 (3-11) BUN 7 (6-23) mg/dl Creatinine 0.69 (0.6-1.2) mg/dl Est Cr Clr Drug Dosing 114.1 ml/min Est GFR ( Amer) 116.8 ml/min Est GFR (Non-Af Amer) 100.8 ml/min BUN/Creatinine Ratio 10.1 (10-20) Glucose 89 (70-99(Fasting)) mg/dl Calcium 8.4 L (8.6-10.3) mg/dl Phosphorus 2.9 (2.5-4.9) mg/dl Magnesium 2.0 (1.7-2.4) mg/dl
--- NOTE | 2023-07-24 10:06 | Gastrointestinal Consultation ---
Date of Consultation July 24, 2023 Assessment & Plan (1) Diverticulitis: 53 year old female with recurrent diverticulitis s/p resection about 8 weeks ago presenting with abd pain, constipation imaging concerning for diverticulitis. She was evaluated by general surgery who notes conservative measures at this time. She does suggests this AM her pain seems to be improving Low residue diet Ok for analgesia PRN but cautious use given constipation Antiemetics PRN Start Miralalx 1 capful 1-2 times daily Agree w/ ABX as planned If she has worsening pain, could always re-image with CT scan Will defer to her surgical team regarding timing of colonoscopy as last examination was in 2014 Thank you for allowing us to participate in the care of this patient. Please call with any acute changes, questions or concerns. Please see addendum below with additional recommendation from my supervising physician. Supervising Physician Co-Signing Physician Notes Attending attestation I agree with the findings and above by our mid-level provider SHRUTI Bazan, with the following additions: -Recurrent symptoms c/w diverticulitis, no obvious post surgical complications -IV Abx -Colonoscopy in 4-6 wks History of Present Illness Reason for Consultation: diverticulitis Requesting Physician: uHy Attending Physician: Meera Son MD History of Present Illness 53 year old female with history of TIA, recurrent diverticulitis s/p partial colectomy about 8 weeks ago, Cdiff, IBS, GERD, gastroparesis, HLD, anxiety/mood disorder, ongoing tobacco abuse admitted with abd pain, diverticulitis. Symptoms started after eating corn. LLQ pain, constipation. Suggests pain is somewhat improving, rates a 4/10. Constipation, no BM since prior to arrival. Denies black or bloody stools. CTAP 2022: Acute diverticulitis of the distal descending and proximal sigmoid colon. Colonic diverticulosis with colonic wall thickening. Moderate inflammation. No free air or abscess. Interval partial left colectomy. Minimal thickening adjacent to the splenic flexure of the colon is likely postsurgical. No additional sites of bowel wall thickening. No bowel obstruction. Bilateral nephrolithiasis. No ureteral calculi or hydronephrosis. Mild dilatation of the distal left ureter likely due to mass effect upon the ureter by inflammation related to diverticulitis. Allergies Allergy/AdvReac Type Severity Reaction Status Date / Time ibuprofen Allergy Severe Shortness Verified 03/22/23 22:48 of breath and hives ketorolac Allergy Severe HIVES/DIFFICULTY Verified 03/22/23 22:48 BREATHING moxifloxacin Allergy Severe Shortness Verified 03/22/23 22:48 of breath/dizziness Penicillins Allergy Severe Anaphylaxis Verified 03/22/23 22:48 /HIVES Sulfa (Sulfonamide Allergy Severe Shortness Verified 03/22/23 22:48 Antibiotics) of breath and hives tramadol Allergy Severe HIVES/DIFFICULTY Verified 03/22/23 22:48 BREATHING aspirin Allergy Unknown Unknown Verified 03/22/23 22:48 dicyclomine [From Bentyl] AdvReac Intermediate Constipatio Verified 03/22/23 22:48 n haloperidol AdvReac Intermediate "KEEPS ME Verified 03/22/23 22:48 AWAKE, CAN'T SLEEP". hydrocodone AdvReac Intermediate Vomiting Verified 03/22/23 22:49 prochlorperazine AdvReac Intermediate MOTOR Verified 03/22/23 22:49 RESTLESSNESS Home Medications Medication Instructions Recorded Confirmed Type albuterol sulfate 90 mcg/actuation 2 puff inhalation Q4H PRN Wheezing 07/23/18 07/22/23 History aerosol inhaler (Ventolin HFA) epinephrine 0.3 mg/0.3 mL 0.3 mg IM DIRECTED PRN Allergic 07/23/18 07/22/23 History injection, auto-injector (EpiPen Reaction 2-Cisco) venlafaxine 150 mg 300 mg PO HS 07/23/18 07/22/23 History capsule,extended release 24 hr acetaminophen 500 mg tablet 1,000 mg PO QID PRN Pain 02/27/23 07/22/23 History Patient History Medical History (Updated 07/22/23 @ 22:20 by Zane Allen MD) Asthma Depression Facial pain DWAYNE (generalized anxiety disorder) Gastroparesis Generalized pruritus GERD (gastroesophageal reflux disease) History of Clostridium difficile colitis HLD (hyperlipidemia) IBS (irritable bowel syndrome) Migraine Osteomyelitis Pancreatitis Squamous cell carcinoma of left shoulder Suicide attempt by drug ingestion On 04/21/16 10:30 Helene Rene wrote "03/22/2016" TIA (transient ischemic attack) Surgical History H/O colonoscopy H/O esophagogastroduodenoscopy H/O tubal ligation H/O unilateral oophorectomy History of colectomy due to diverticulitis 2009, Dr. Mancuso 2008 Hx of appendectomy Hx of tonsillectomy S/P cholecystectomy S/P MARLON (total abdominal hysterectomy) Family History Father Type 2 diabetes mellitus Mother Myocardial infarction Social History Smoking Status: Current every day smoker Tobacco Type: Cigarettes Cigarettes Per Day: 10; Second Hand Exposure: No; Do You Dip or Chew Tobacco: No; Tobacco Cessation Education Requested by Patient: No Hx Alcohol Use: No Hx Substance Use: No Preferred Language: Hebrew Communication Ability: Effective Pecan Picker Required: No Beliefs That Will Affect Care: None Current Living Situation: Alone Other Information That Helps Us Care for You: No Feels Safe at Home: Yes Safety Concerns: Feels Safe At This Time Assistive Devices: Glasses and Hospital Bed Review of Systems Review of Systems: All systems reviewed & are unremarkable except as noted in HPI & below Physical Exam Constitutional: WD/WN, vitals as above Respiratory: normal respiratory effort, lungs clear to auscultation Cardiovascular: RRR, no murmur, no edema Gastrointestinal (Abdomen): Inspection/Auscultation: normal bowel sounds Percussion/Palpation: + abdomen tender and abdomen soft; no guarding and abdomen not rigid Skin: no rashes, warm and dry Results & Data Vital Signs (Past 12 Hours) Vital Signs Temp Pulse Resp BP BP Pulse Ox O2 Del Method 07/24/23 09:54 150/90 H 07/24/23 07:52 36.8 C 104 H 16 164/108 H 93 Room Air Laboratory Results 07/24/23 07/24/23 Range/Units 06:52 06:52 WBC 11.09 H (4.8-10.8) K/ul RBC 4.14 L (4.20-5.40) M/uL Hgb 12.1 (12.0-16.0) g/dl Hct 37.6 (37.0-47.0) % MCV 90.8 (80.0-100.0) fL MCH 29.2 (25.0-34.0) pg MCHC 32.2 (32.0-36.0) g/dL RDW Std Deviation 43.8 (36.4-46.3) fL RDW Coeff of Liat 13.2 (11.5-14.5) % Plt Count 249 (130-400) K/uL MPV 9.3 L (9.4-12.4) fL Sodium 140 (136-145) mmol/L Potassium 4.0 (3.5-5.1) mmol/L Chloride 107 (98-107) mmol/L Carbon Dioxide 26 (21-32) mmol/L Anion Gap 7 (3-11) BUN 7 (6-23) mg/dl Creatinine 0.69 (0.6-1.2) mg/dl Est Cr Clr Drug Dosing 114.1 ml/min Est GFR ( Amer) 116.8 ml/min Est GFR (Non-Af Amer) 100.8 ml/min BUN/Creatinine Ratio 10.1 (10-20) Glucose 89 (70-99(Fasting)) mg/dl Calcium 8.4 L (8.6-10.3) mg/dl Phosphorus 2.9 (2.5-4.9) mg/dl Magnesium 2.0 (1.7-2.4) mg/dl
[2023-07-24] MEDS ORDERED: traMADol HCL 50 MG TABLET PO PRN (15:19)
[2023-07-24] MEDS: POLYETHYLENE (MIRALAX) 17 GM PACK PO SCH (15:29)
[2023-07-24] MEDS ORDERED: POLYETHYLENE (MIRALAX) 17 GM PACK PO SCH (15:30)
[2023-07-24] MEDS: ONDANSETRON INJ 2 MG/ML 2 ML VIAL IV PRN (19:32)
[2023-07-24] MEDS: VENLAFAXINE HCL XR 150 MG CAPXR PO SCH (19:37)
[2023-07-25] MEDS: metroNIDAZOLE 500 MG/100 ML BAG IV SCH ×3 (03:30→18:41)
[2023-07-25] MEDS: HYDROmorphone INJ 0.5 MG/0.5 ML SYR IV PRN ×6 (03:35→20:58)
[2023-07-25] MEDS: ONDANSETRON INJ 2 MG/ML 2 ML VIAL IV PRN ×2 (06:25→20:58)
[2023-07-25 06:55] LABS: Hematocrit (blood only) 37.7 % (37.0-47.0); Mean Corpuscular Hemoglobin 29.1 pg (25.0-34.0); Mean Corpuscular Hgb Conc 31.8 g/dL (32.0-36.0); Mean Corpuscular Volume 91.5 fL (80.0-100.0); Mean Platelet Volume 9.4 fL (9.4-12.4); Platelet Count 250 K/uL (130-400); RDW Standard Deviation 43.5 fL (36.4-46.3); Red Blood Count 4.12 M/uL (4.20-5.40); White Blood Count 9.17 K/ul (4.8-10.8)
[2023-07-25 07:08] LABS: BUN Creatinine Ratio 6.9 (10-20); Calcium 8.4 mg/dl (8.6-10.3); Creatinine Clr Calc Pharmacy 109.3 ml/min; Est GFR (African American) 112.4 ml/min; Phosphorus 3.2 mg/dl (2.5-4.9)
--- NOTE | 2023-07-25 07:33 | Hospitalist Progress Note ---
Date of Service July 25, 2023 Assessment & Plan (1) Acute diverticulitis: Plan: Ms. Matthews is a 53 year old woman with past medical history of recurrent diverticulitis with partial sigmoid colectomy with anastomosis in 2008, [place] [facility] [place] for concern of diverticulitis on 07/22. Patient with ongoing pain for >72 hours prompting presentation to ED. On admission,WBC15.[address] AP with acute diverticulitis of the distal descending and proximal sigmoid colon with moderate inflammation, as well as no free air or abscess present and minimal thickening adjacent to the splenic flexure of the colon likely postsurgical. Review of outside record reports multiple episodes of diverticulitis around the splenic flexure prompting the resection on 06/02. Last hospitalization was 06/01-06/03 with conservative management and PO abx. #Acute recurrent diverticulitis #Chronic diverticulosis s/p sigmoid colectomy (05/2023) -Missed OP surgery follow up 06/15 IV fluids with normal saline IV antibiotic with ceftriaxone and Flagyl IV Tylenol every 8 hours for pain control and as needed Dilaudid Surgery consult: conservative management GI: Miralax 1-2caps daily, low residue diet, cscope 4-6weeks -Advance to [facility]D and monitor Other conditions Mood disordervenlafaxine, continue DVT prophylaxis heparin Full code Admission and Anticipated Discharge Date Admission Date: July 22, 2023 Results & Data Results & Data Vital Signs (Past 12 Hours) Vital Signs Temp Pulse Pulse Resp BP Pulse Ox O2 Del Method 07/25/23 07:18 36.8 C 91 H 16 162/94 H 93 Room Air 07/24/23 19:37 Room Air 07/24/23 21:11 36.8 C 94 H 18 175/90 H 96 Room Air
[2023-07-25] MEDS ORDERED: lisinopril 5 MG TAB PO ONE (09:45)
[2023-07-25] MEDS: POLYETHYLENE (MIRALAX) 17 GM PACK PO SCH (09:57)
[2023-07-25] MEDS: SODIUM CHLORIDE 0.9% 1,000 ML IV SCH ×2 (13:16→20:26)
[2023-07-25] MEDS: cefTRIAXone SODIUM 2,000 MG in DEXTROSE 5% 50 ML IV SCH (15:31)
--- NOTE | 2023-07-25 15:44 | Surgery Progress Note ---
Date of Service July 25, 2023 Assessment & Plan (1) Acute diverticulitis: Plan Acute diverticulitis in descending colon 7 weeks status post sigmoid colectomy for diverticulosis. Continue IV antibiotics, Ceftriaxone needs to be ordered again, has not had since Monday07/23/23 May advance diet to fulls Encourage ambulation We will continue to follow ' Dr. Coats has seen and examined pt, agrees with above. Admission and Anticipated Discharge Date Admission Date: July 22, 2023 Supervising Physician Co-Signing Physician Notes I have seen and examined the patient personally and agree with the above assessment and plan. She is having less pain today. Abdomen is soft with less tenderness in the left lower quadrant. Continue IV antibiotics. Advance diet to full liquids. We will continue to follow up. Subjective feeling better today pain still present in the left lower abdomen but improving, not worse mild nausea this am, no vomiting tolerating clear liquids watery stools last night Physical Exam Constitutional: WD/WN, vitals as above cooperative, comfortable and + overweight; no acute distress and not ill appearing Respiratory: normal respiratory effort; no respiratory distress Gastrointestinal (Abdomen): Inspection/Auscultation: abdomen normal to inspection; abdomen not distended Percussion/Palpation: + abdomen tender (Left mid to lower abdomen); no guarding, abdomen not rigid and + abdomen not soft Skin: no rashes, warm and dry Psychiatric: A+Ox3, euthymic affect Results & Data Vital Signs (Past 12 Hours) Vital Signs Temp Pulse Resp BP BP Pulse Ox O2 Del Method 07/25/23 15:26 36.7 C 107 H 18 172/99 H 92 Room Air 07/25/23 07:18 36.8 C 91 H 16 162/94 H 93 Room Air Laboratory Results 07/25/23 07/25/23 Range/Units 06:16 06:16 WBC 9.17 (4.8-10.8) K/ul RBC 4.12 L (4.20-5.40) M/uL Hgb 12.0 (12.0-16.0) g/dl Hct 37.7 (37.0-47.0) % MCV 91.5 (80.0-100.0) fL MCH 29.1 (25.0-34.0) pg MCHC 31.8 L (32.0-36.0) g/dL RDW Std Deviation 43.5 (36.4-46.3) fL RDW Coeff of Liat 13.0 (11.5-14.5) % Plt Count 250 (130-400) K/uL MPV 9.4 (9.4-12.4) fL Sodium 141 (136-145) mmol/L Potassium 4.0 (3.5-5.1) mmol/L Chloride 106 (98-107) mmol/L Carbon Dioxide 30 (21-32) mmol/L Anion Gap 5 (3-11) BUN 5 L (6-23) mg/dl Creatinine 0.72 (0.6-1.2) mg/dl Est Cr Clr Drug Dosing 109.3 ml/min Est GFR ( Amer) 112.4 ml/min Est GFR (Non-Af Amer) 97.0 ml/min BUN/Creatinine Ratio 6.9 L (10-20) Glucose 96 (70-99(Fasting)) mg/dl Calcium 8.4 L (8.6-10.3) mg/dl Phosphorus 3.2 (2.5-4.9) mg/dl Magnesium 2.0 (1.7-2.4) mg/dl
--- NOTE | 2023-07-25 16:06 | Hospitalist Progress Note ---
Date of Service July 25, 2023 Assessment & Plan (1) Acute diverticulitis: Plan: Ms. Matthews is a 53 year old woman with past medical history of recurrent diverticulitis with partial sigmoid colectomy with anastomosis in 2008, recent robotic laparoscopic partial colectomy in May 2023 at [facility] [place] who is admitted for concern of diverticulitis on 07/22. Patient with ongoing pain for >72 hours prompting presentation to ED. On admission,WBC15.[address] AP with acute diverticulitis of the distal descending and proximal sigmoid colon with moderate inflammation, as well as no free air or abscess present and minimal thickening adjacent to the splenic flexure of the colon likely postsurgical. Review of outside record reports multiple episodes of diverticulitis around the splenic flexure prompting the resection on 06/02. Last hospitalization was 06/01-06/03 with conservative management and PO abx. Acute recurrent diverticulitis Chronic diverticulosis s/p sigmoid colectomy (05/2023) General surgery following On IV ceftriaxone and IV Flagyl (day 4) Tolerating clear liquids, advance to full liquids today by general surgery GI consulted: Miralax 1-2caps daily, low residue diet, cscope 4-6weeks Elevated blood pressure Review of trend of BPs during this admission and prior, show persistently elevated BPs Will start lisinopril 5 mg daily, adjust as needed Mood disorder Chronic, stable Continue venlafaxine DVT PROPHYLAXIS SCDs Patient seen in coverage with Dr. Son. Admission and Anticipated Discharge Date Admission Date: July 22, 2023 Supervising Physician Co-Signing Physician Notes I have seen and discussed the case with the collaborating [employer]. I agree with the above progress note. I have reviewed and confirmed the patients medical history, the findings on physical examination, and the patients diagnosis and treatment plan with [employer] and agree with the information documented. Subjective Follow-up for recurrent diverticulitis. Patient seen and examined. Reports pain is controlled, denies nausea. Tolerating clear liquids. No chest pain or shortness of breath. Denies lightheadedness and dizziness. Physical Exam Constitutional: WD/WN, vitals as above Respiratory: normal respiratory effort, lungs clear to auscultation Cardiovascular: Rate/Rhythm: regular rate and regular rhythm Vessels: normal peripheral pulses Extremities: no edema Gastrointestinal (Abdomen): Inspection/Auscultation: + abdomen distended (Semi firm) Percussion/Palpation: abdomen nontender Skin: no rashes, warm and dry Neurologic: no focal motor deficits Psychiatric: A+Ox3, euthymic affect Results & Data Results & Data Vital Signs (Past 12 Hours) Vital Signs Temp Pulse Resp BP BP Pulse Ox O2 Del Method 07/25/23 15:26 36.7 C 107 H 18 172/99 H 92 Room Air 07/25/23 07:18 36.8 C 91 H 16 162/94 H 93 Room Air Laboratory Results Short CBC 07/25/23 Range/Units 06:16 WBC 9.17 (4.8-10.8) K/ul Hgb 12.0 (12.0-16.0) g/dl Hct 37.7 (37.0-47.0) % Plt Count 250 (130-400) K/uL BMP 07/25/23 06:16 Sodium 141 Potassium 4.0 Chloride 106 Carbon Dioxide 30 BUN 5 L Creatinine 0.72 Glucose 96 Calcium 8.4 L
[2023-07-25] MEDS: VENLAFAXINE HCL XR 150 MG CAPXR PO SCH (20:24)
[2023-07-26] MEDS: HYDROmorphone INJ 0.5 MG/0.5 ML SYR IV PRN ×7 (00:47→22:41)
[2023-07-26] MEDS: ONDANSETRON INJ 2 MG/ML 2 ML VIAL IV PRN ×2 (03:27→18:48)
[2023-07-26] MEDS: SODIUM CHLORIDE 0.9% 1,000 ML IV SCH ×2 (03:27→12:25)
[2023-07-26] MEDS: metroNIDAZOLE 500 MG/100 ML BAG IV SCH ×3 (03:27→18:49)
[2023-07-26] MEDS: POLYETHYLENE (MIRALAX) 17 GM PACK PO SCH (07:34)
[2023-07-26] MEDS: lisinopril 5 MG TAB PO SCH (08:08)
[2023-07-26 08:17] LABS: Hematocrit (blood only) 35.4 % (37.0-47.0); Hemoglobin 11.6 g/dl (12.0-16.0); Mean Corpuscular Hemoglobin 29.5 pg (25.0-34.0); Mean Corpuscular Hgb Conc 32.8 g/dL (32.0-36.0); Mean Corpuscular Volume 90.1 fL (80.0-100.0); Mean Platelet Volume 9.4 fL (9.4-12.4); Platelet Count 275 K/uL (130-400); RDW Coefficient of Variation 12.9 % (11.5-14.5); RDW Standard Deviation 42.9 fL (36.4-46.3); Red Blood Count 3.93 M/uL (4.20-5.40); White Blood Count 6.93 K/ul (4.8-10.8)
[2023-07-26 08:37] LABS: BUN Creatinine Ratio 5.3 (10-20); Calcium 8.5 mg/dl (8.6-10.3); Est GFR (Non-African American) 92.3 ml/min
[2023-07-26] MEDS ORDERED: ZINC OXIDE 16% 45 APPLN, HYDROCORTISONE 1% 45 APPLN, ALUMINUM/MAGNESIUM SUSP 15 ML, BAR... TOP PRN (11:20)
--- NOTE | 2023-07-26 11:21 | Surgery Progress Note ---
Date of Service July 26, 2023 Assessment & Plan (1) Acute diverticulitis: Plan Recurrent diverticulitis Acute diverticulitis in descending colon 7 weeks status post sigmoid colectomy for diverticulosis. Continue IV antibiotics low fiber diet Encourage ambulation Continue medical management If tolerates low fiber diet , okay from discharge from surgical standpoint Needs to follow-up with her colorectal surgeon Dr. Kelly on discharge Discussed with Dr. Coats who agrees with above. Admission and Anticipated Discharge Date Admission Date: July 22, 2023 Subjective feeling better, having left abdominal pain now but is due for pain medication no n,v tolerated full liquids still having liquid/watery stools pain better than yesterday no fevers or chills Physical Exam Constitutional: WD/WN, vitals as above cooperative and comfortable; no acute distress, not ill appearing and not in distress Gastrointestinal (Abdomen): Inspection/Auscultation: abdomen normal to inspection; abdomen not distended Percussion/Palpation: + abdomen tender (left mid to lower abdomen) and abdomen soft; no guarding, abdomen not rigid and abdomen not firm Skin: no rashes, warm and dry Psychiatric: A+Ox3, euthymic affect Results & Data Vital Signs (Past 12 Hours) Vital Signs Temp Pulse Resp BP Pulse Ox O2 Del Method 07/26/23 07:38 36.8 C 86 18 138/81 95 Room Air Laboratory Results 07/26/23 07/26/23 Range/Units 07:36 07:36 WBC 6.93 (4.8-10.8) K/ul RBC 3.93 L (4.20-5.40) M/uL Hgb 11.6 L (12.0-16.0) g/dl Hct 35.4 L (37.0-47.0) % MCV 90.1 (80.0-100.0) fL MCH 29.5 (25.0-34.0) pg MCHC 32.8 (32.0-36.0) g/dL RDW Std Deviation 42.9 (36.4-46.3) fL RDW Coeff of Liat 12.9 (11.5-14.5) % Plt Count 275 (130-400) K/uL MPV 9.4 (9.4-12.4) fL Sodium 142 (136-145) mmol/L Potassium 4.0 (3.5-5.1) mmol/L Chloride 107 (98-107) mmol/L Carbon Dioxide 31 (21-32) mmol/L Anion Gap 4 (3-11) BUN 4 L (6-23) mg/dl Creatinine 0.75 (0.6-1.2) mg/dl Est Cr Clr Drug Dosing 105.0 ml/min Est GFR ( Amer) 107.0 ml/min Est GFR (Non-Af Amer) 92.3 ml/min BUN/Creatinine Ratio 5.3 L (10-20) Glucose 100 H (70-99(Fasting)) mg/dl Calcium 8.5 L (8.6-10.3) mg/dl
[2023-07-26] MEDS ORDERED: oxyCODONE/ACETAMINOPHEN 5mg/325mg TAB PO PRN (11:31)
[2023-07-26] MEDS ORDERED: ACETAMINOPHEN 325 MG TAB PO PRN (11:34)
[2023-07-26] MEDS: oxyCODONE/ACETAMINOPHEN 5mg/325mg TAB PO PRN ×2 (13:29→20:15)
[2023-07-26] MEDS: cefTRIAXone SODIUM 2,000 MG in DEXTROSE 5% 50 ML IV SCH (14:36)
--- NOTE | 2023-07-26 15:43 | Hospitalist Progress Note ---
Date of Service July 26, 2023 Assessment & Plan (1) Acute diverticulitis: Plan: Ms. Matthews is a 53 year old woman with past medical history of recurrent diverticulitis with partial sigmoid colectomy with anastomosis in 2008, recent robotic laparoscopic partial colectomy in May 2023 at [facility] [place] who is admitted for concern of diverticulitis on 07/22. Patient with ongoing pain for >72 hours prompting presentation to ED. On admission,WBC15.[address] AP with acute diverticulitis of the distal descending and proximal sigmoid colon with moderate inflammation, as well as no free air or abscess present and minimal thickening adjacent to the splenic flexure of the c olon likely postsurgical. Review of outside record reports multiple episodes of diverticulitis around the splenic flexure prompting the resection on 06/02. Last hospitalization was 06/01-06/03 with conservative management and PO abx. Acute recurrent diverticulitis Chronic diverticulosis s/p sigmoid colectomy (05/2023) General surgery following On IV ceftriaxone and IV Flagyl (day 5) Tolerating full liquids, diet advanced to low fiber by general surgery, if continues to tolerate diet advancement, likely d/c home tomorrow Percocet added by general surgery today for pain control GI consulted: Miralax 1-2caps daily, low residue diet, cscope 4-6weeks Elevated blood pressure Review of trend of BPs during this admission and prior, show persistently elevated BPs Lisinopril 5mg started 07/25 BP improved Mood disorder Chronic, stable Continue venlafaxine DVT PROPHYLAXIS SCDs Patient seen in coverage with Dr. Deluca. Admission and Anticipated Discharge Date Admission Date: July 22, 2023 Supervising Physician Co-Signing Physician Notes Patient seen and examined at bedside as a follow-up of acute diverticulitis patient has a history of chronic diverticulosis status post sigmoid colectomy [05/2023]. Continue with Rocephin and Flagyl. General surgery following, advancing diet. Patient reports improving abdominal pain overall and has been tolerating diet. I have seen and examined the patient and have discussed the case with the provider above. I agree with the assessment and plan as stated. Subjective Follow-up for recurrent diverticulitis. Patient seen and examined. Tolerating full liquids. Reports minimal abdominal pain and infrequent nausea. Physical Exam Constitutional: WD/WN, vitals as above Respiratory: normal respiratory effort, lungs clear to auscultation Cardiovascular: Rate/Rhythm: regular rate and regular rhythm Vessels: normal peripheral pulses Extremities: no edema Gastrointestinal (Abdomen): Percussion/Palpation: + abdomen tender (mild left sided abdominal tenderness) and abdomen soft Skin: no rashes, warm and dry Neurologic: no focal motor deficits Psychiatric: A+Ox3, euthymic affect Results & Data Results & Data Vital Signs (Past 12 Hours) Vital Signs Temp Pulse Resp BP Pulse Ox O2 Del Method 07/26/23 14:07 36.8 C 88 16 142/85 H 92 Room Air 07/26/23 07:38 36.8 C 86 18 138/81 95 Room Air Laboratory Results Short CBC 07/26/23 Range/Units 07:36 WBC 6.93 (4.8-10.8) K/ul Hgb 11.6 L (12.0-16.0) g/dl Hct 35.4 L (37.0-47.0) % Plt Count 275 (130-400) K/uL BMP 07/26/23 07:36 Sodium 142 Potassium 4.0 Chloride 107 Carbon Dioxide 31 BUN 4 L Creatinine 0.75 Glucose 100 H Calcium 8.5 L
[2023-07-26] MEDS: VENLAFAXINE HCL XR 150 MG CAPXR PO SCH (20:08)
[2023-07-27] MEDS: metroNIDAZOLE 500 MG/100 ML BAG IV SCH ×2 (02:34→11:42)
[2023-07-27 06:43] LABS: Hematocrit (blood only) 40.2 % (37.0-47.0); Hemoglobin 12.8 g/dl (12.0-16.0); Mean Corpuscular Hemoglobin 29.1 pg (25.0-34.0); Mean Corpuscular Hgb Conc 31.8 g/dL (32.0-36.0); Mean Corpuscular Volume 91.4 fL (80.0-100.0); Mean Platelet Volume 9.3 fL (9.4-12.4); Platelet Count 291 K/uL (130-400); RDW Coefficient of Variation 12.9 % (11.5-14.5); White Blood Count 7.19 K/ul (4.8-10.8)
[2023-07-27 07:27] LABS: Calcium 8.9 mg/dl (8.6-10.3); Creatinine Clr Calc Pharmacy 100.9 ml/min; Potassium 3.8 mmol/L (3.5-5.1)
[2023-07-27] MEDS: lisinopril 5 MG TAB PO SCH (09:26)
[2023-07-27] MEDS: POLYETHYLENE (MIRALAX) 17 GM PACK PO SCH (09:28)
[2023-07-27] MEDS: ADVANCED PROBIOTIC 1250 MG CAPSULE PO SCH (12:49)
[2023-07-27] MEDS: HYDROmorphone INJ 0.5 MG/0.5 ML SYR IV PRN (12:54)
[2023-07-27] MEDS: oxyCODONE/ACETAMINOPHEN 5mg/325mg TAB PO PRN ×2 (14:18→18:10)
[2023-07-27] MEDS: cefTRIAXone SODIUM 2,000 MG in DEXTROSE 5% 50 ML IV SCH (14:44)
[2023-07-27] MEDS ORDERED: HYDROmorphone INJ 0.5 MG/0.5 ML SYR IV PRN (16:08)
--- NOTE | 2023-07-27 17:08 | Hospitalist Progress Note ---
Date of Service July 27, 2023 Assessment & Plan (1) Acute diverticulitis: Plan: Ms. Matthews is a 53 year old woman with past medical history of recurrent diverticulitis with partial sigmoid colectomy with anastomosis in 2008, recent robotic laparoscopic partial colectomy in May 2023 at [facility] [place] who is admitted for concern of diverticulitis on 07/22. Patient with ongoing pain for >72 hours prompting presentation to ED. On admission, WBC15.[address] AP with acute diverticulitis of the distal descending and proximal sigmoid colon with moderate inflammation, as well as no free air or abscess present and minimal thickening adjacent to the splenic flexure of the colon likely postsurgical. Review of outside record reports multiple episodes of diverticulitis around the splenic flexure prompting the resection on 06/02. Last hospitalization was 06/01-06/03 with conservative management and PO abx. Acute recurrent diverticulitis Chronic diverticulosis s/p sigmoid colectomy (05/2023) General surgery following On IV ceftriaxone and IV Flagyl (day 6) Diet advanced to low fiber by general surgery but having some residual nausea and increased pain Discussed eating a smaller amount this evening and monitoring Percocet added by general surgery today for pain control, will reduce frequency of IV Dilaudid per discussion with nursing Appreciate gen surg input regarding patient's concern about diverticulitis closely following bowel resection If pain continues or increases overnight, will return to clears, consider repeat imaging per surgery GI consulted: Miralax 1-2caps daily, low residue diet, cscope 4-6weeks Elevated blood pressure Review of trend of BPs during this admission and prior, show persistently elevated BPs Lisinopril 5mg started 07/25 BP improved Mood disorder Chronic, stable Continue venlafaxine DVT PROPHYLAXIS SCDs Patient seen in coverage with Dr. Deluca. Admission and Anticipated Discharge Date Admission Date: July 22, 2023 Supervising Physician Co-Signing Physician Notes Patient seen and examined at bedside as a follow-up of acute diverticulitis patient has a history of chronic diverticulosis status post sigmoid colectomy [05/2023]. Continue with Rocephin and Flagyl. General surgery following, advancing diet. Patient reports still w/ significant pain meds requirement though she moved bowel, will monitor overnight and repeat scan in am if w/ ongoing belly pain. I have seen and examined the patient and have discussed the case with the provider above. I agree with the assessment and plan as stated. Subjective Patient seen and examined in follow-up for recurrent diverticulitis. Tolerated low fiber diet last evening but does endorse some nausea. Similar feelings following meals today. Discussed reducing amount of low fiber versus resuming clears for the time being. Requiring p.o. and IV pain medication for abdominal pain. Having watery stool. Denies any fever, chills, lightness, chest pain, shortness of breath, vomiting, dysuria or constipation. Review of Systems Review of Systems: At least ten systems reviewed and negative except as noted in the HPI. Physical Exam Physical Exam: Gen: WD/WN, NAD, sitting upright in bed, A&Ox3 HEENT: Normocephalic, atraumatic, conjunctivae moist, sclerae anicteric, mucous membranes moist Lung: Clear to Auscultation bilaterally, no wheezes/rales/rhonchi Heart: Regular rate, regular rhythm, no murmurs, rubs, or gallops Abdomen: Soft, mild diffuse lower TTP RLQ and LLQ, ND +BS x 4 Extremities: no edema Skin: Warm, no rash Results & Data Results & Data Vital Signs (Past 12 Hours) Vital Signs Temp Pulse Resp BP BP Pulse Ox O2 Del Method 07/27/23 15:19 36.7 C 87 18 142/93 H 96 Room Air 07/27/23 07:29 36.9 C 84 18 138/83 94 Room Air Laboratory Results Short CBC 07/27/23 Range/Units 05:54 WBC 7.19 (4.8-10.8) K/ul Hgb 12.8 (12.0-16.0) g/dl Hct 40.2 (37.0-47.0) % Plt Count 291 (130-400) K/uL BMP 07/27/23 05:54 Sodium 142 Potassium 3.8 Chloride 105 Carbon Dioxide 31 BUN 7 Creatinine 0.78 Glucose 112 H Calcium 8.9 Diagnostic Findings Abdomen/Pelvis CT 07/22/23 14:39 CT OF THE ABDOMEN AND PELVIS WITH CONTRAST CLINICAL HISTORY: LUQ pain, hx of resection COMPARISON STUDY: CT of the abdomen and pelvis April 10, 2023. KUB April 12, 2023. TECHNIQUE: Following IV administration of 93 mL of Optiray, axial images of the abdomen and pelvis were obtained from the lung bases to the proximal femurs. Images were reviewed in the axial, sagittal, and coronal planes. IV contrast was administered without complication. Automated exposure control was utilized for the study. A dose lowering technique was utilized adhering to the principles of ALARA. CT DOSE: 1587.30 mGy.cm FINDINGS: Lung bases are unremarkable. No pneumatosis, free air or portal venous gas is present. There is no biliary ductal dilatation status post cholecystectomy. Spleen, adrenal glands and pancreas are unremarkable. Several bilateral renal calculi measure up to 5 mm. There are no ureteral calculi. There is slight dilatation of the mid left ureter. This is likely due to inflammation related to diverticulitis of the distal descending and proximal sigmoid colon. Colonic wall thickening is noted with extensive colonic diverticulosis. There is moderate associated inflammation. No free air or abscess is present. Interval resection of the splenic flexure of the colon is noted. Interval partial left colectomy is noted. Minimal stranding adjacent to these remaining splenic flexure of the colon is noted. This is likely postsurgical. Postoperative findings within the anterior abdominal wall are noted. There is no fluid collection. Previous sigmoid resection is noted. No evidence for a bowel obstruction. The appendix is surgically absent. Major vasculature is patent. There is no lymphadenopathy. IMPRESSION: 1. Acute diverticulitis of the distal descending and proximal sigmoid colon. Colonic diverticulosis with colonic wall thickening. Moderate inflammation. No free air or abscess. 2. Interval partial left colectomy. Minimal thickening adjacent to the splenic flexure of the colon is likely postsurgical. No additional sites of bowel wall thickening. 3. No bowel obstruction. 4. Bilateral nephrolithiasis. No ureteral calculi or hydronephrosis. Mild dilatation of the distal left ureter likely due to mass effect upon the ureter by inflammation related to diverticulitis. ACT 112: Negative or not required by law. Electronically signed by: Henry Epstein M.D. 07/22/2023 4:21 PM
[2023-07-27] MEDS: metroNIDAZOLE 500 MG TAB PO SCH (18:11)
[2023-07-27] MEDS: VENLAFAXINE HCL XR 150 MG CAPXR PO SCH (21:21)
[2023-07-28] MEDS: metroNIDAZOLE 500 MG TAB PO SCH ×2 (03:44→09:06)
[2023-07-28] MEDS: oxyCODONE/ACETAMINOPHEN 5mg/325mg TAB PO PRN (09:04)
[2023-07-28] MEDS: ADVANCED PROBIOTIC 1250 MG CAPSULE PO SCH (09:05)
[2023-07-28] MEDS: POLYETHYLENE (MIRALAX) 17 GM PACK PO SCH (09:07)
[2023-07-28] MEDS: lisinopril 5 MG TAB PO SCH (10:10)
--- NOTE | 2023-07-28 13:02 | Surgery Progress Note ---
Date of Service July 28, 2023 Assessment & Plan (1) Acute diverticulitis: Plan Acute diverticulitis in descending colon 8 weeks status post sigmoid colectomy for diverticulosis. avss pain improved today + bowel function, loose stools no blood Plan: Okay from surgical standpoint for discharge Oral antibiotics to finish 10 day course of IV and oral needs to follow-up with colorectal surgeon Admission and Anticipated Discharge Date Admission Date: July 22, 2023 Subjective feeling better today pain much better today, controlled with Percocet loose stools but more stool content, no blood no n,v tolerating low fiber diet Physical Exam Constitutional: WD/WN, vitals as above no acute distress and not ill appearing Respiratory: normal respiratory effort; no respiratory distress Gastrointestinal (Abdomen): Inspection/Auscultation: abdomen normal to inspection; abdomen not distended Percussion/Palpation: + abdomen tender (left mid to low abdomen, significantly improved) and abdomen soft; no guarding, abdomen not rigid and abdomen not firm Skin: no rashes, warm and dry Psychiatric: A+Ox3, euthymic affect Results & Data Vital Signs (Past 12 Hours) Vital Signs Temp Pulse Resp BP Pulse Ox O2 Del Method 07/28/23 08:54 36.7 C 98 H 16 149/100 H 95 Room Air 07/28/23 06:30 36.7 C 89 18 150/84 H 95 Room Air
--- NOTE | 2023-07-28 13:37 | Discharge Summary ---
Discharge Summary Date of Service July 28, 2023 Notes For Next Care Provider Recurrent diverticulitis in setting of recent colon resection. PO abx, colorectal follow up Medication Changes From Visit Cefdinir, Flagyl to complete course, probiotic, started on lisinopril for elevated BP Admission HPI Per Admitting Provider History obtained from chart review and interview with the patient Past medical history of recurrent diverticulitis with partial sigmoid colectomy with anastomosis in 2008, recent robotic laparoscopic partial colectomy in May 2023 at [facility], mood disorder Patient presents with abdominal pain in left side of her abdomen for the last 3 days. The abdominal pain is associated with fever starting yesterday; Tmax of 100 F associated with chills. She also reports decreased appetite nausea and vomiting since last 3 days as well. Reports diarrhea starting on the day of the abdominal pain. Denies seeing blood in the stool or in vomitus. Denies chest pain, shortness of breath or urinary symptoms. She had recent elective robotic laparoscopic partial colectomy at [facility] in May; has been recovering well from it. Had multiple diverticulitis episodes for several years. On presentation to the ED, she was afebrile, normotensive and saturating well on room air. Leukocytosis present with WBC of 15.8 CT abdomen pelvis shows acute diverticulitis of the distal descending and proximal sigmoid colon with moderate inflammation. No free air or abscess present. Minimal thickening adjacent to the splenic flexure of the colon likely postsurgical. Patient was given ceftriaxone in the ED. Patient to be admitted to medical floor for further treatment Admission Exam Per Admitting Provider Constitutional: Alert orient x3; not in distress. Respiratory: normal respiratory effort, lungs clear to auscultation, no wheeze, rales, rhonchi. Normal insp/exp effort, no accessory muscle use Cardiovascular: RRR, no murmur, no edema Vessels: no JVD or carotid bruit Chest: normal inspection of chest Abdomen: Tenderness present in left lower quadrant. Bowel sound present. Scars from robotic surgery healing well Musculoskeletal: no cyanosis or clubbing, extremities motor strength 5/5 Skin: no rashes, warm and dry normal turgor Neurologic: PERRL, EOMI, accommodation nl, no face palsy, no dysarthria CN's II- XI intact bilaterally and moves all extremities Psychiatric: A+Ox3, euthymic affect Principal Dx & Hospital Course #1 = Principal Diagnosis (1) Acute diverticulitis: Ms. Matthews is a 53 year old woman with past medical history of recurrent diverticulitis with partial sigmoid colectomy with anastomosis in 2008, recent robotic laparoscopic partial colectomy in May 2023 at [facility] who is admitted for concern of diverticulitis on 07/22. On admission, WBC15.[address] AP with acute diverticulitis of the distal descending and proximal sigmoid colon with moderate inflammation, as well as no free air or abscess present and minimal thickening adjacent to the splenic flexure of the colon likely postsurgical. Review of outside record reports multiple episodes of diverticulitis around the splenic flexure prompting the resection on 06/02. Last hospitalization was 06/01-06/03 with conservative management and PO abx. Managed conservatively again this admission and will discharge on cefdinir and flagyl to complete 10 day course. General surgery recommending close follow up with Dr. Kelly, patient's colorectal surgeon, given close proximity to partial colectomy. Continue small low fiber meals, bowel regimen and pain control as needed. Follow up colonoscopy in 4-6 weeks. Was started on lisinopril 5mg for elevated blood pressure during admission. Follow up with PCP for continued BP monitoring and BMP. Patient hemodynamically stable at time of discharge home. Discharge Exam Gen: WD/WN, NAD, sitting in bedside chair, A&Ox3 HEENT: Normocephalic, atraumatic, conjunctivae moist, sclerae anicteric, mucous membranes moist Lung: Clear to Auscultation bilaterally, no wheezes/rales/rhonchi Heart: Regular rate, regular rhythm, no murmurs, rubs, or gallops Abdomen: Soft, mild TTP in LLQ, ND +BS x 4 Extremities: no edema Skin: Warm, no rash Updated Medication List Medication Instructions Recorded Confirmed Type albuterol sulfate 90 mcg/actuation 2 puff inhalation Q4H PRN Wheezing 07/23/18 07/22/23 History aerosol inhaler (Ventolin HFA) epinephrine 0.3 mg/0.3 mL 0.3 mg IM DIRECTED PRN Allergic 07/23/18 07/22/23 History injection, auto-injector (EpiPen Reaction 2-Cisco) venlafaxine 150 mg 300 mg PO HS 07/23/18 07/22/23 History capsule,extended release 24 hr acetaminophen 500 mg tablet 1,000 mg PO QID PRN Pain 02/27/23 07/22/23 History L.acidop,casei,lactis,rham-B.lact,adrian 2 cap PO DAILY #14 caps 07/28/23 Rx 625 mg (10 billion cell) capsule (Advanced Probiotic) cefdinir 300 mg capsule 300 mg PO BID 3 days #7 caps 07/28/23 Rx lisinopril 5 mg tablet (Zestril) 5 mg PO QAM #30 tabs 07/28/23 Rx metronidazole 500 mg tablet 500 mg PO Q8H 4 days #11 tabs 07/28/23 Rx oxycodone 5 mg tablet 5 mg PO Q8H PRN pain #10 tabs 07/28/23 Rx Hospital Stay Data Consultations 07/22/23 16:59 ED Decision to Admit Stat 07/22/23 20:43 Consult General Surgery Routine 07/24/23 08:56 Consult Gastroenterology Routine Diagnostic Imagining Performed 07/22/23 14:39 CT abd pelvis IV con only Stat Pending Results Patient Have Any Pending Studies at Discharge: No Discharge Instructions Given to Patient (Per Discharging Provider) MEDICATION CHANGES: Cefdinir and Flagyl x 3 days to complete antibiotic course. Probiotic dailyx 7 days for GI Health. Alternate Tylenol and PRN oxycodone for severe pain. Continue lisinopril 5mg daily for elevated blood pressure. MiraLax 1-2 caps daily as needed (over the counter) SUMMARY OF TEST RESULTS: You were admitted to hospital secondary to recurrent diverticulitis CT abd/pelvis showed acute diverticulitis of the distal descending and proximal sigmoid colon. Colonic diverticulosis with colonic wall thickening Tolerating advanced diet, continue low fiber Follow up with GI for colonoscopy in 4-6 weeks Follow up with colorectal surgeon Dr. Kelly PENDING TEST RESULTS: None RECOMMENDATIONS FOR FOLLOW-UP: Follow up with PCP as scheduled. Complete antibiotic in its entirety. Continue medication regimen as scheduled aside from changes noted above. Follow up with blood pressure monitoring and BMP lab work with PCP. OTHER INSTRUCTIONS: Seek medical attention if you have: * temperature above 101 * chest pain or trouble breathing * abdominal pain, nausea, vomiting * diarrhea, dark stools or bloody stools * any unanswered questions or concerns Call 911 if symptoms are severe. Please take good care of yourself. Call if you have any questions or problems. You can reach a [facility] hospitalist on duty at [facility] 24 hours a day by calling [phone]. Total Time Total Time Spent Total Time Spent (In Minutes): 45 Supervising Physician Co-Signing Physician Notes Patient seen and examined at bedside as a follow-up of acute diverticulitis patient has a history of chronic diverticulosis status post sigmoid colectomy [05/2023]. Continue with Rocephin and Flagyl -- to oral atb on dc to complete 10 day course. General surgery following, advancing diet. Patient tolerating advancement of diet. Reports feeling better today. I have seen and examined the patient and have discussed the case with the provider above. I agree with the assessment and plan as stated.
[2023-07-28 13:43] LABS: Hematocrit (blood only) 42.7 % (37.0-47.0); Hemoglobin 14.2 g/dl (12.0-16.0); Mean Corpuscular Hemoglobin 29.7 pg (25.0-34.0); Mean Corpuscular Hgb Conc 33.3 g/dL (32.0-36.0); Mean Corpuscular Volume 89.3 fL (80.0-100.0); Mean Platelet Volume 9.4 fL (9.4-12.4); Platelet Count 350 K/uL (130-400); RDW Coefficient of Variation 13.1 % (11.5-14.5); RDW Standard Deviation 42.8 fL (36.4-46.3); Red Blood Count 4.78 M/uL (4.20-5.40); White Blood Count 10.62 K/ul (4.8-10.8)
[2023-07-28 14:08] LABS: BUN Creatinine Ratio 12.9 (10-20); Calcium 9.9 mg/dl (8.6-10.3); Creatinine Clr Calc Pharmacy 77.9 ml/min; Est GFR (African American) 74.6 ml/min; Est GFR (Non-African American) 64.4 ml/min
== END 2023-07-28 15:33 | disposition home or self-care (01) | DRG 392 ==
LOC: ED 14:05 → SUATTDRO 17:30 → 3W 17:30

== ENCOUNTER 2023-08-06 23:11 | Observation (INO) ==
[2023-08-07] MEDS ORDERED: ONDANSETRON INJ 2 MG/ML 2 ML VIAL ONE (00:03)
[2023-08-07] MEDS ORDERED: ONDANSETRON INJ 2 MG/ML 2 ML VIAL IV STA ×3 (00:06→05:24)
[2023-08-07] MEDS ORDERED: FAMOTIDINE 20MG IV PUSH 20 MG/5 ML SYR IV STA (00:28)
[2023-08-07] MEDS ORDERED: SODIUM CHLORIDE 0.9% 1,000 ML IV ONE (00:28)
[2023-08-07] MEDS ORDERED: metroNIDAZOLE 500 MG/100 ML BAG IV STA (00:28)
[2023-08-07] MEDS ORDERED: ACETAMINOPHEN 1,000 MG/100 ML VIAL IV STA (00:28)
[2023-08-07] MEDS ORDERED: cefTRIAXone SODIUM 2,000 MG/50 ML BAG IV STA (00:28)
[2023-08-07 00:29] LABS: Hematocrit (blood only) 45.9 % (37.0-47.0); Hemoglobin 14.6 g/dl (12.0-16.0); Mean Corpuscular Hgb Conc 31.8 g/dL (32.0-36.0); Mean Corpuscular Volume 91.1 fL (80.0-100.0); Mean Platelet Volume 9.4 fL (9.4-12.4); Platelet Count 436 K/uL (130-400); RDW Coefficient of Variation 13.3 % (11.5-14.5); RDW Standard Deviation 44.8 fL (36.4-46.3); Red Blood Count 5.04 M/uL (4.20-5.40); White Blood Count 13.85 K/ul (4.8-10.8)
[2023-08-07 00:34] LABS: Albumin Globulin Ratio 1.3 (0.9-2); Albumin Level 4.5 gm/dl (3.4-5.0); BUN Creatinine Ratio 11.5 (10-20); Bilirubin,Total 0.3 mg/dl (0.2-1.0); Calcium 9.7 mg/dl (8.6-10.3); Creatinine Clr Calc Pharmacy 79.8 ml/min; Est GFR (African American) 79.4 ml/min; Est GFR (Non-African American) 68.5 ml/min; Globulin 3.6 gm/dl (2.5-4.0); Potassium 4.4 mmol/L (3.5-5.1); Total Protein 8.1 gm/dl (6.0-8.3)
--- NOTE | 2023-08-07 00:37 | Emergency Department Note ---
History of Present Illness General Chief complaint: Abdominal Pain Stated complaint: ABD PAIN,FEVER,CHILLS,NAUSEA Time Seen by Provider: 08/07/23 00:25 History of Present Illness Maximum Pain Intensity: 9 This 53-year-old with a history of recurrent diverticulitis presents to the ER complaint of fever, chills and left-sided abdominal pain with concerns for recurrent diverticulitis. Patient denies chest pain, dyspnea, cough, congestion, urinary symptoms, diarrhea. She does have some nausea. She finished her antibiotics at the beginning the week. She had a partial colon resection for the diverticulitis in the past. Home Medications Medication Instructions Recorded Confirmed Type albuterol sulfate 90 mcg/actuation 2 puff inhalation Q4H PRN Wheezing 07/23/18 07/22/23 History aerosol inhaler (Ventolin HFA) epinephrine 0.3 mg/0.3 mL 0.3 mg IM DIRECTED PRN Allergic 07/23/18 07/22/23 History injection, auto-injector (EpiPen Reaction 2-Cisco) venlafaxine 150 mg 300 mg PO HS 07/23/18 07/22/23 History capsule,extended release 24 hr acetaminophen 500 mg tablet 1,000 mg PO QID PRN Pain 02/27/23 07/22/23 History L.acidop,casei,lactis,rham-B.lact,adrian 2 cap PO DAILY #14 caps 07/28/23 Rx 625 mg (10 billion cell) capsule (Advanced Probiotic) lisinopril 5 mg tablet (Zestril) 5 mg PO QAM #30 tabs 07/28/23 Rx oxycodone 5 mg tablet 5 mg PO Q8H PRN pain #10 tabs 07/28/23 Rx Allergies Allergy/AdvReac Type Severity Reaction Status Date / Time ibuprofen Allergy Severe Shortness Verified 03/22/23 22:48 of breath and hives ketorolac Allergy Severe HIVES/DIFFICULTY Verified 03/22/23 22:48 BREATHING moxifloxacin Allergy Severe Shortness Verified 03/22/23 22:48 of breath/dizziness Penicillins Allergy Severe Anaphylaxis Verified 03/22/23 22:48 /HIVES Sulfa (Sulfonamide Allergy Severe Shortness Verified 03/22/23 22:48 Antibiotics) of breath and hives tramadol Allergy Severe HIVES/DIFFICULTY Verified 03/22/23 22:48 BREATHING aspirin Allergy Unknown Unknown Verified 03/22/23 22:48 dicyclomine [From Bentyl] AdvReac Intermediate Constipatio Verified 03/22/23 22:48 n haloperidol AdvReac Intermediate "KEEPS ME Verified 03/22/23 22:48 AWAKE, CAN'T SLEEP". hydrocodone AdvReac Intermediate Vomiting Verified 03/22/23 22:49 prochlorperazine AdvReac Intermediate MOTOR Verified 03/22/23 22:49 RESTLESSNESS Past Med/Surg History Medical History (Updated 08/07/23 @ 03:20 by Mirian Uribe PA-C) Asthma Depression Facial pain DWAYNE (generalized anxiety disorder) Gastroparesis Generalized pruritus GERD (gastroesophageal reflux disease) History of Clostridium difficile colitis HLD (hyperlipidemia) IBS (irritable bowel syndrome) Migraine Osteomyelitis Pancreatitis Squamous cell carcinoma of left shoulder Suicide attempt by drug ingestion On 04/21/16 10:30 Helene Rene wrote "03/22/2016" TIA (transient ischemic attack) Surgical History H/O colonoscopy H/O esophagogastroduodenoscopy H/O tubal ligation H/O unilateral oophorectomy History of colectomy due to diverticulitis 2009, Dr. 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 Beliefs That Will Affect Care: None Current Living Situation: Alone Feels Safe at Home: Yes Assistive Devices: None Review of Systems A total of 10 systems reviewed and were otherwise negative Physical Exam Vital Signs Vital Signs - 24 hr 08/06/23 23:16 08/07/23 00:31 08/07/23 00:42 Temperature 36.5 C 37.0 C Temperature Source Temporal Artery Scan Oral Pulse Rate 107 H 94 H Pulse Rate [Apical] 98 H Pulse Rate from SpO2 Sensor 94 H Pulse Rhythm [Apical] Regular Pulse Strength [Apical] Normal Respiratory Rate 19 18 22 Respiratory Effort / Characteristics Non-Labored Respiratory Depth Normal Respiratory Pattern Regular Blood Pressure 175/104 H Blood Pressure [Left Arm] 154/102 H Blood Pressure Mean 127 Blood Pressure Mean [Left Arm] 119 Pulse Oximetry 96 94 95 Oxygen Delivery Method Room Air Room Air Sepsis Recent Fever Within 48 Hours No Sepsis New/Unexplained Change in Mental Status N/A Sepsis Action Taken by Nursing No Action Required 08/07/23 01:00 08/07/23 01:01 08/07/23 00:42 Temperature Temperature Source Pulse Rate 92 H 90 93 H Pulse Rate [Apical] Pulse Rate from SpO2 Sensor 92 H 90 Pulse Rhythm [Apical] Pulse Strength [Apical] Respiratory Rate 21 18 Respiratory Effort / Characteristics Respiratory Depth Respiratory Pattern Blood Pressure 167/99 H 167/99 H Blood Pressure [Left Arm] Blood Pressure Mean 121 121 Blood Pressure Mean [Left Arm] Pulse Oximetry 94 94 Oxygen Delivery Method Room Air Room Air Sepsis Recent Fever Within 48 Hours Sepsis New/Unexplained Change in Mental Status Sepsis Action Taken by Nursing 08/07/23 01:30 08/07/23 02:00 08/07/23 02:30 Temperature Temperature Source Pulse Rate 94 H 98 H Pulse Rate [Apical] Pulse Rate from SpO2 Sensor 95 H 98 H 96 H Pulse Rhythm [Apical] Pulse Strength [Apical] Respiratory Rate 14 16 20 Respiratory Effort / Characteristics Respiratory Depth Respiratory Pattern Blood Pressure 172/93 H 183/109 H Blood Pressure [Left Arm] Blood Pressure Mean 119 133 Blood Pressure Mean [Left Arm] Pulse Oximetry 92 93 96 Oxygen Delivery Method Room Air Room Air Sepsis Recent Fever Within 48 Hours Sepsis New/Unexplained Change in Mental Status Sepsis Action Taken by Nursing 08/07/23 02:31 08/07/23 03:00 Temperature Temperature Source Pulse Rate 95 H 92 H Pulse Rate [Apical] Pulse Rate from SpO2 Sensor 95 H 92 H Pulse Rhythm [Apical] Pulse Strength [Apical] Respiratory Rate 18 17 Respiratory Effort / Characteristics Respiratory Depth Respiratory Pattern Blood Pressure 162/103 H 167/106 H Blood Pressure [Left Arm] Blood Pressure Mean 122 126 Blood Pressure Mean [Left Arm] Pulse Oximetry 94 94 Oxygen Delivery Method Room Air Room Air Sepsis Recent Fever Within 48 Hours Sepsis New/Unexplained Change in Mental Status Sepsis Action Taken by Nursing VITALS: Vitals are noted on the nurse's note and reviewed by myself. Vital signs stable. GENERAL: Pleasant female, in no acute distress, nondiaphoretic, well-developed well-nourished. SKIN: The skin was without rashes, erythema, edema, or bruising. There is no tenting of the skin. Capillary reflex less than 2 seconds. HEAD: Normocephalic atraumatic. EARS: External auditory canals clear, EYES: Pupils equal round and reactive to light and accommodation. Conjunctivae without injection, sclerae without icterus. Extraocular movements intact. NOSE: Patent, turbinates without inflammation or discharge. MOUTH: Mucous membranes moist. Pharynx without erythema or exudate. Uvula midline. Airway patent. Tongue does not deviate. NECK: Supple without nuchal rigidity. No lymphadenopathy. No thyromegaly. Cervical spine is nontender. No JVD. HEART: Regular rate and rhythm LUNGS: Clear to auscultation bilaterally without wheezes, rales or rhonchi. No retractions or accessory muscle use. ABDOMEN: Positive bowel sounds x 4. Normal tympanic percussion. Soft, tender left upper and lower quadrants, without masses or organomegaly. Hendrix sign negative. No guarding or rebound tenderness. No CVA tenderness MUSCULOSKELETAL: No muscle atrophy, erythema, or edema noted. NEURO: Patient was alert and oriented to person place and time. Normal sensation to light and sharp touch. No focal neurological deficits. Course Administered Medications Discontinued Medications Hydromorphone HCl (Hydromorphone Inj 0.5 Mg/0.5 Ml Syr) 0.5 mg IV Q15M PRN PRN Reason: Pain Stop: 08/21/23 00:32 Last Admin: 08/07/23 03:10 Dose: 0.5 mg Documented By: Admin: 08/07/23 01:52 Dose: 0.5 mg Documented By: Admin: 08/07/23 00:45 Dose: 0.5 mg Documented By: JUDITH Ceftriaxone Sodium (Rocephin) 2,000 mg in 50 mls @ 100 mls/hr IV NOW STA Stop: 08/07/23 00:57 Last Infusion: 08/07/23 01:36 Dose: 0 mls/hr Documented By: Admin: 08/07/23 00:58 Dose: 100 mls/hr Documented By: JUDITH Metronidazole (Flagyl) 500 mg in 100 mls @ 100 mls/hr IV NOW STA; Protocol Stop: 08/07/23 01:27 Last Infusion: 08/07/23 03:11 Dose: 0 mls/hr Documented By: Admin: 08/07/23 01:35 Dose: 100 mls/hr Documented By: JUDITH Sodium Chloride (Nss) 1,000 mls @ 999 mls/hr IV .Q1H1M ONE Stop: 08/07/23 01:28 Last Infusion: 08/07/23 01:54 Dose: 0 mls/hr Documented By: Admin: 08/07/23 00:46 Dose: 999 mls/hr Documented By: JUDITH Famotidine (Pepcid 20mg Iv Push) 20 mg in 5 mls @ 2.5 mls/min IV NOW STA Stop: 08/07/23 00:29 Last Admin: 08/07/23 01:06 Dose: 2.5 mls/min Documented By: JUDITH Acetaminophen (Ofirmev) 1,000 mg in 100 mls @ 400 mls/hr IV NOW STA Stop: 08/07/23 00:42 Last Infusion: 08/07/23 01:14 Dose: 0 mls/hr Documented By: Admin: 08/07/23 00:56 Dose: 400 mls/hr Documented By: JUDITH Ioversol (Optiray 320 100ml) 100 ml IV ONCE ONE Stop: 08/07/23 02:36 Last Admin: 08/07/23 02:35 Dose: 91 ml Documented By: KIKO Ondansetron HCl (Ondansetron Inj 2 Mg/Ml 2 Ml Vial) 4 mg IV NOW STA Stop: 08/07/23 00:07 Last Admin: 08/07/23 00:07 Dose: 4 mg Documented By: SARAH Ondansetron HCl (Ondansetron Inj 2 Mg/Ml 2 Ml Vial) Confirm Administered Dose 4 mg .ROUTE .STK-MED ONE Stop: 08/07/23 00:04 Last Admin: 08/07/23 00:25 Dose: Not Given Documented By: JUDITH Ondansetron HCl (Ondansetron Inj 2 Mg/Ml 2 Ml Vial) 4 mg IV NOW STA Stop: 08/07/23 00:29 Last Admin: 08/07/23 01:51 Dose: 4 mg Documented By: JUDITH Medical Decision Making Medical Records Attestation: I reviewed the patient's medical records. Home Medications Current Medication List: was personally reviewed by me Laboratory Data Attestation: I reviewed the patient's lab results. 08/07/23 00:07 08/07/23 00:07 Lab Results 08/07/23 08/07/23 08/07/23 Range/Units 00:07 00:07 00:23 WBC 13.85 H (4.8-10.8) K/ul RBC 5.04 (4.20-5.40) M/uL Hgb 14.6 (12.0-16.0) g/dl Hct 45.9 (37.0-47.0) % MCV 91.1 (80.0-100.0) fL MCH 29.0 (25.0-34.0) pg MCHC 31.8 L (32.0-36.0) g/dL RDW Std Deviation 44.8 (36.4-46.3) fL RDW Coeff of Liat 13.3 (11.5-14.5) % Plt Count 436 H (130-400) K/uL MPV 9.4 (9.4-12.4) fL Immature Gran % (Auto) 0.3 % Neut % (Auto) 49.7 % Lymph % (Auto) 41.2 % [place] % (Auto) 5.1 % Eos % (Auto) 2.8 % Baso % (Auto) 0.9 % Neut # (Auto) 6.88 H (1.40-6.50) K/uL Lymph # (Auto) 5.71 H (1.20-3.40) K/uL [place] # (Auto) 0.71 H (0.11-0.59) K/uL Eos # (Auto) 0.39 (0.00-0.50) K/uL Baso # (Auto) 0.12 (0.00-0.20) K/uL Immature Gran # (Auto) 0.04 (0.01-0.20) K/uL Sodium 136 (136-145) mmol/L Potassium 4.4 (3.5-5.1) mmol/L Chloride 101 (98-107) mmol/L Carbon Dioxide 26 (21-32) mmol/L Anion Gap 9 (3-11) BUN 11 (6-23) mg/dl Creatinine 0.96 (0.6-1.2) mg/dl Est Cr Clr Drug Dosing 79.8 ml/min Est GFR ( Amer) 79.4 ml/min Est GFR (Non-Af Amer) 68.5 ml/min BUN/Creatinine Ratio 11.5 (10-20) Glucose 113 H (70-99(Fasting)) mg/dl Lactate (0.4-2.0) mmol/L Calcium 9.7 (8.6-10.3) mg/dl Magnesium 2.1 (1.7-2.4) mg/dl Total Bilirubin 0.3 (0.2-1.0) mg/dl AST 21 (13-39) U/L ALT 22 (7-52) U/L Alkaline Phosphatase 78 (34-104) U/L Total Protein 8.1 (6.0-8.3) gm/dl Albumin 4.5 (3.4-5.0) gm/dl Globulin 3.6 (2.5-4.0) gm/dl Albumin/Globulin Ratio 1.3 (0.9-2) Lipase 18 (11-82) U/L Urine Color Yellow Urine Appearance Cloudy A (Clear) Urine pH 6.0 (4.5-7.5) Ur Specific [place] 1.013 (1.000-1.030) Urine Protein Negative (Negative) Urine Glucose (UA) Negative (Negative) Urine Ketones Negative (Negative) Urine Blood Trace H (Negative) Urine Nitrite Negative (Negative) Urine Bilirubin Negative (Negative) Urine Urobilinogen Negative (Negative) Ur Leukocyte Esterase Trace H (Negative) Urine WBC (Auto) 10-30 H (0-5) /hpf Urine RBC (Auto) 5-10 H (0-4) /hpf U Hyaline Cast (Auto) 1-5 (0-5) /lpf U Epithel Cells (Auto) >30 H (0-5) /lpf Urine Bacteria (Auto) 1+ H (Negative) 08/07/23 Range/Units 00:38 WBC (4.8-10.8) K/ul RBC (4.20-5.40) M/uL Hgb (12.0-16.0) g/dl Hct (37.0-47.0) % MCV (80.0-100.0) fL MCH (25.0-34.0) pg MCHC (32.0-36.0) g/dL RDW Std Deviation (36.4-46.3) fL RDW Coeff of Liat (11.5-14.5) % Plt Count (130-400) K/uL MPV (9.4-12.4) fL Immature Gran % (Auto) % Neut % (Auto) % Lymph % (Auto) % [place] % (Auto) % Eos % (Auto) % Baso % (Auto) % Neut # (Auto) (1.40-6.50) K/uL Lymph # (Auto) (1.20-3.40) K/uL [place] # (Auto) (0.11-0.59) K/uL Eos # (Auto) (0.00-0.50) K/uL Baso # (Auto) (0.00-0.20) K/uL Immature Gran # (Auto) (0.01-0.20) K/uL Sodium (136-145) mmol/L Potassium (3.5-5.1) mmol/L Chloride (98-107) mmol/L Carbon Dioxide (21-32) mmol/L Anion Gap (3-11) BUN (6-23) mg/dl Creatinine (0.6-1.2) mg/dl Est Cr Clr Drug Dosing ml/min Est GFR ( Amer) ml/min Est GFR (Non-Af Amer) ml/min BUN/Creatinine Ratio (10-20) Glucose (70-99(Fasting)) mg/dl Lactate 1.5 (0.4-2.0) mmol/L Calcium (8.6-10.3) mg/dl Magnesium (1.7-2.4) mg/dl Total Bilirubin (0.2-1.0) mg/dl AST (13-39) U/L ALT (7-52) U/L Alkaline Phosphatase (34-104) U/L Total Protein (6.0-8.3) gm/dl Albumin (3.4-5.0) gm/dl Globulin (2.5-4.0) gm/dl Albumin/Globulin Ratio (0.9-2) Lipase (11-82) U/L Urine Color Urine Appearance (Clear) Urine pH (4.5-7.5) Ur Specific [place] (1.000-1.030) Urine Protein (Negative) Urine Glucose (UA) (Negative) Urine Ketones (Negative) Urine Blood (Negative) Urine Nitrite (Negative) Urine Bilirubin (Negative) Urine Urobilinogen (Negative) Ur Leukocyte Esterase (Negative) Urine WBC (Auto) (0-5) /hpf Urine RBC (Auto) (0-4) /hpf U Hyaline Cast (Auto) (0-5) /lpf U Epithel Cells (Auto) (0-5) /lpf Urine Bacteria (Auto) (Negative) Imaging Data Attestation: I personally reviewed and interpreted this imaging study as follows: Radiologist's Impression: Abdomen/Pelvis CT 08/07/23 01:49 Exam(s): CT ABDOMEN + PELVIS With Contrast IV Amt: 91 ml optiray 320 EXAM: CT Abdomen and Pelvis With Intravenous Contrast CLINICAL HISTORY: llq pain, hx divertic. TECHNIQUE: Axial computed tomography images of the abdomen and pelvis with intravenous contrast. CTDI is 28.14 mGy and DLP is 1443.54 mGy-cm. Automated exposure control was utilized for the study. A dose lowering technique was utilized adhering to the principles of ALARA. CONTRAST: Patient received 91 ml optiray 320 of IV contrast COMPARISON: CT with contrast dated 07/22/2023 FINDINGS: Lung bases: Unremarkable. No mass. No consolidation. Mediastinum: The stomach is predominantly decompressed. Small hiatal hernia. The small bowel demonstrates no evidence for obstruction or mucosal asymmetry. ABDOMEN: Liver: Unremarkable. No mass. Gallbladder and bile ducts: Cholecystectomy. No ductal dilation. Pancreas: Unremarkable. No mass. No ductal dilation. Spleen: Unremarkable. No splenomegaly. Adrenals: Unremarkable. No mass. Kidneys and ureters: The kidneys demonstrate normal enhancement. Probable subcentimeter nonobstructive nephrolithiasis involving the inferior pole of both kidneys. No hydronephrosis or ureteral stones. Stomach and bowel: Asymmetric pericolonic fat stranding noted with regional diverticula in the proximal sigmoid. Moderate stool burden. Postsurgical changes involving the splenic flexure and distal sigmoid colon. PELVIS: Appendix: Appendectomy. Bladder: Unremarkable. No mass. Reproductive: Status post hysterectomy. ABDOMEN and PELVIS: Intraperitoneal space: Unremarkable. No free air. No significant fluid collection. Bones/joints: No acute fracture. No dislocation. Soft tissues: Unremarkable. Vasculature: Unremarkable. No abdominal aortic aneurysm. Lymph nodes: Unremarkable. No enlarged lymph nodes. IMPRESSION: Asymmetric pericolonic fat stranding noted with regional diverticula in the proximal sigmoid. Findings are most consistent with recurrent sigmoid diverticulitis. This finding is in a similar location to the previous examination but is less prominent. No abscess or perforation. No bowel obstruction. Electronically signed by: Flo Clark MD 08/07/23 03:15 AM [facility] Narrative Prior records/ancillary studies reviewed. Triage Nursing notes reviewed. Additional history obtained from nursing. The patient's history was concerning for abdominal pain. Differential diagnosis: Etiologies such as appendicitis, diverticulitis, PUD, biliary pathology, UTI, pancreatitis, obstruction, mesenteric ischemia, aortic pathology, infections, inflammatory bowel disease, renal colic, as well as others were entertained. Physical examination findings: As above. ER treatment provided: An order was placed for continuous cardiac monitoring. The monitor shows a rate of 60-100 with a sinus rhythm per my Independent interpretation. IV fluids, Rocephin, Flagyl, Dilaudid, Pepcid Zofran were ordered On reassessment the patient felt better. Diagnostics interpreted by me: The labs Independently Interpreted by myself revealed leukocytosis, hyperglycemia without DKA Negative urine Imaging studies: CT is concerning for recurrent diverticulitis per my independent interpretation and per report as above. No perforation. Consultation: A consultation was placed with the hospitalist. The case was discussed and diagnostics were reviewed. The patient was evaluated in the ER for further treatment. Exam and history seem consistent with recurrent acute diverticulitis. Patient was in moderate amount of pain. She felt she had fever and chills. No documented temperature here. Lactic negative. Leukocytosis was present. She was started on antibiotics. Medicine was consulted and the case was discussed. She will be evaluated by the medical service for possible admission. By the evaluation outlined above emergent etiologies such as appendicitis, PUD, biliary pathology, UTI, pancreatitis, obstruction, mesenteric ischemia, aortic pathology, inflammatory bowel disease, renal colic, as well as others were deemed relatively unlikely. The pt informed about the findings as listed above. All questions were answered and pleased with the treatment. The chart was completed utilizing [employer] voice recognition software. Grammatical errors, random word insertions, pronoun errors, and incomplete sente nces are an occassional consequence of this system due to software limitations, ambient noise, and hardware issues. Any formal questions or concerns about the content, text, or information contained within the body of this dictation should be directly addressed to the physician ambulance assistant for clarification. Impression & Plan Acute diverticulitis of intestine Discharge Plan Visit Data Chief Complaint: Abdominal Pain Stated Complaint: ABD PAIN,FEVER,CHILLS,NAUSEA ED Provider: Sejal Rodriguez ED Midlevel Provider: Mirian Uribe Discharge Problem: Acute diverticulitis of intestine Patient Disposition: Admitted As Inpatient Condition: Good Forms Stand Alone Forms: [facility] Prescriptions Prescriptions: No Action venlafaxine 150 mg capsule,extended release 24hr 300 mg PO HS epinephrine [EpiPen 2-[employer]isco] 0.3 mg/0.3 mL Auto-Injector 0.3 mg IM DIRECTED PRN (Reason: Allergic Reaction) albuterol sulfate [Ventolin HFA] 90 mcg/actuation Hfa Aerosol Inhaler 2 puff INHALATION Q4H PRN (Reason: Wheezing) acetaminophen 500 mg Tablet 1,000 mg PO QID PRN (Reason: Pain) lisinopril [Zestril] 5 mg Tablet 5 mg PO QAM Qty: 30 0RF Rx Instructions: Take 1 tab daily Advanced Probiotic 625 mg (10 billion cell) Capsule 2 cap PO DAILY Qty: 14 0RF oxycodone 5 mg tablet 5 mg PO Q8H PRN (Reason: pain) Qty: 10 0RF Rx Instructions: Take 1 tab every 8 hours as needed for severe pain Referrals Referrals: Holland Naik MD [Primary Care Provider] -
[2023-08-07] MEDS: HYDROmorphone INJ 0.5 MG/0.5 ML SYR IV PRN ×8 (00:45→22:54)
[2023-08-07 00:51] LABS: Magnesium 2.1 mg/dl (1.7-2.4)
[2023-08-07 00:59] LABS: Appearance Urine Cloudy (Clear); Bacteria Urine Automated 1+ (Negative); Bilirubin Urine Negative (Negative); Blood Urine Trace (Negative); Color Urine Yellow; Epithelial Cell Urine Auto >30 /lpf (0-5); Glucose Urine UA Negative (Negative); Ketones Urine Negative (Negative); Leukocyte Esterase Urine Trace (Negative); Nitrite Urine Negative (Negative); Protein Urine Negative (Negative); Specific Gravity Urine 1.013 (1.000-1.030); Urobilinogen Urine Negative (Negative)
[2023-08-07 01:07] LABS: Basophils # (auto) 0.12 K/uL (0.00-0.20); Basophils % (auto) 0.9 %; Eosinophils # (auto) 0.39 K/uL (0.00-0.50); Eosinophils % (auto) 2.8 %; Immature Granulocytes # (auto) 0.04 K/uL (0.01-0.20); Immature Granulocytes % (auto) 0.3 %; Lymphocytes # (auto) 5.71 K/uL (1.20-3.40); Lymphocytes % (auto) 41.2 %; Monocytes # (auto) 0.71 K/uL (0.11-0.59); Monocytes % (auto) 5.1 %; Neutrophils # (auto) 6.88 K/uL (1.40-6.50); Neutrophils % (auto) 49.7 %
[2023-08-07] MEDS ORDERED: OPTIRAY 320 100ml IV ONE (02:35)
--- NOTE | 2023-08-07 03:16 | CT Scan Report ---
Exam(s): CT ABDOMEN + PELVIS With Contrast IV Amt: 91 ml optiray 320 EXAM: CT Abdomen and Pelvis With Intravenous Contrast CLINICAL HISTORY: llq pain, hx divertic. TECHNIQUE: Axial computed tomography images of the abdomen and pelvis with intravenous contrast. CTDI is 28.14 mGy and DLP is 1443.54 mGy-cm. Automated exposure control was utilized for the study. A dose lowering technique was utilized adhering to the principles of ALARA. CONTRAST: Patient received 91 ml optiray 320 of IV contrast COMPARISON: CT with contrast dated 07/22/2023 FINDINGS: Lung bases: Unremarkable. No mass. No consolidation. Mediastinum: The stomach is predominantly decompressed. Small hiatal hernia. The small bowel demonstrates no evidence for obstruction or mucosal asymmetry. ABDOMEN: Liver: Unremarkable. No mass. Gallbladder and bile ducts: Cholecystectomy. No ductal dilation. Pancreas: Unremarkable. No mass. No ductal dilation. Spleen: Unremarkable. No splenomegaly. Adrenals: Unremarkable. No mass. Kidneys and ureters: The kidneys demonstrate normal enhancement. Probable subcentimeter nonobstructive nephrolithiasis involving the inferior pole of both kidneys. No hydronephrosis or ureteral stones. Stomach and bowel: Asymmetric pericolonic fat stranding noted with regional diverticula in the proximal sigmoid. Moderate stool burden. Postsurgical changes involving the splenic flexure and distal sigmoid colon. PELVIS: Appendix: Appendectomy. Bladder: Unremarkable. No mass. Reproductive: Status post hysterectomy. ABDOMEN and PELVIS: Intraperitoneal space: Unremarkable. No free air. No significant fluid collection. Bones/joints: No acute fracture. No dislocation. Soft tissues: Unremarkable. Vasculature: Unremarkable. No abdominal aortic aneurysm. Lymph nodes: Unremarkable. No enlarged lymph nodes. IMPRESSION: Asymmetric pericolonic fat stranding noted with regional diverticula in the proximal sigmoid. Findings are most consistent with recurrent sigmoid diverticulitis. This finding is in a similar location to the previous examination but is less prominent. No abscess or perforation. No bowel obstruction. Electronically signed by: Flo Clark MD 08/07/23 03:15 AM
[2023-08-07] MEDS ORDERED: HYDROmorphone INJ 0.5 MG/0.5 ML SYR IV STA (04:59)
[2023-08-07] MEDS ORDERED: PROMETHAZINE HCL 12.5 MG in SODIUM CHLORIDE 0.9% 50 ML IV STA (04:59)
[2023-08-07] MEDS ORDERED: PROMETHAZINE 12.5 MG/50.5 ML BAG IV STA (05:04)
--- NOTE | 2023-08-07 05:10 | History & Physical Report ---
Date of Service August 07, 2023 Assessment & Plan (1) Acute diverticulitis: Plan: 53-year-old female with past med history significant for hyperlipidemia, allergic rhinitis, irritable bowel syndrome, recurrent diverticulitis, history of c diff colitis, fibromyalgia, migraine, PTSD, generalized anxiety disorder, history of tobacco use, depression, presents with abdominal pain and found to have recurrent diverticulitis. Acute diverticulitis Recurrent diverticulitis recurrent diverticulitis with partial sigmoid colectomy with anastomosis in 2008, recent robotic laparoscopic partial colectomy in May 2023 at [facility] [place],as per records. Recently was admitted on July 22 and was discharged on July 28 with recurrent diverticulitis comes again with same diverticulitis Started on IV cefepime and Flagyl N.p.o., IV fluids, IV pain meds as needed Consult general surgery Mood disorder on venlafaxine HTN on lisinopril. DVT prophylaxis Lovenox Disposition MedSurg Full code History of Present Illness Chief Complaint: Recurrent diverticulitis Primary Care Provider: Holland Naik MD 53-year-old female with past med history significant for hyperlipidemia, allergic rhinitis, irritable bowel syndrome, recurrent diverticulitis, history of c diff colitis, fibromyalgia, migraine, PTSD, generalized anxiety disorder, history of tobacco use, depression, presents with abdominal pain and found to have recurrent diverticulitis. Patient states today again developed left lower quadrant abdominal pain as well as nausea /vomiting and fever. Had diarrhea today but no blood in the stools, normal bladder movements. No chest pain or shortness of breath. No cough. Has some headache. Has some dizziness. No runny nose. No sore throat. Hemodynamic stable. Patient was recently in the hospital for diverticulitis treated with antibiotics. Past medical history. As mentioned above Past surgical history.. Colonoscopy. Left oophorectomy, cholecystectomy hysterectomy. Appendectomy. Robotic laparoscopic partial colectomy with coloproctostomy, laparoscopic right ovary and fallopian tube removed. Laparoscopic sigmoid colectomy with primary anastomosis. Social history. Smoker smoked half pack a day for 5 years. No alcohol use. No drug use. Family history. Daughter has arthritis. Father has diabetes. Brother has heart disorder. Mother has heart disorder. Allergies Allergy/AdvReac Type Severity Reaction Status Date / Time ibuprofen Allergy Severe Shortness Verified 03/22/23 22:48 of breath and hives ketorolac Allergy Severe HIVES/DIFFICULTY Verified 03/22/23 22:48 BREATHING moxifloxacin Allergy Severe Shortness Verified 03/22/23 22:48 of breath/dizziness Penicillins Allergy Severe Anaphylaxis Verified 03/22/23 22:48 /HIVES Sulfa (Sulfonamide Allergy Severe Shortness Verified 03/22/23 22:48 Antibiotics) of breath and hives tramadol Allergy Severe HIVES/DIFFICULTY Verified 03/22/23 22:48 BREATHING aspirin Allergy Unknown Unknown Verified 03/22/23 22:48 dicyclomine [From Bentyl] AdvReac Intermediate Constipatio Verified 03/22/23 22:48 n haloperidol AdvReac Intermediate "KEEPS ME Verified 03/22/23 22:48 AWAKE, CAN'T SLEEP". hydrocodone AdvReac Intermediate Vomiting Verified 03/22/23 22:49 prochlorperazine AdvReac Intermediate MOTOR Verified 03/22/23 22:49 RESTLESSNESS Home Medications Medication Instructions Recorded Confirmed Type albuterol sulfate 90 mcg/actuation 2 inh inhalation Q4H PRN Shortness 08/07/23 08/07/23 History aerosol inhaler Of Breath Or Wheezing lisinopril 5 mg tablet 5 mg PO DAILY 08/07/23 08/07/23 History venlafaxine 150 mg 150 mg PO DAILY 08/07/23 08/07/23 History capsule,extended release 24 hr Past Med/Surg History Medical History (Updated 08/07/23 @ 03:20 by Mirian Uribe PA-C) Asthma Depression Facial pain DWAYNE (generalized anxiety disorder) Gastroparesis Generalized pruritus GERD (gastroesophageal reflux disease) History of Clostridium difficile colitis HLD (hyperlipidemia) IBS (irritable bowel syndrome) Migraine Osteomyelitis Pancreatitis Squamous cell carcinoma of left shoulder Suicide attempt by drug ingestion On 04/21/16 10:30 Helene Rene wrote "03/22/2016" TIA (transient ischemic attack) Surgical History H/O colonoscopy H/O esophagogastroduodenoscopy H/O tubal ligation H/O unilateral oophorectomy History of colectomy due to diverticulitis 2008, Dr. Mancuso 2008 Hx of appendectomy Hx of tonsillectomy S/P cholecystectomy S/P MARLON (total abdominal hysterectomy) Family History Father Type 2 diabetes mellitus Mother Myocardial infarction Social History Smoking Status: Current every day smoker Tobacco Type: Cigarettes Cigarettes Per Day: 10; Second Hand Exposure: No; Do You Dip or Chew Tobacco: No; Hx Alcohol Use: No Hx Substance Use: No Preferred Language: Spanish Communication Ability: Effective Film Splicer Required: No Beliefs That Will Affect Care: None Current Living Situation: Alone Feels Safe at Home: Yes Assistive Devices: None Review of Systems Review of Systems: All systems reviewed & are unremarkable except as noted in HPI & below Physical Exam Physical Exam: General- adult Head- atraumatic Eyes- PERRL. ENT- oropharynx clear Neck- supple, no JVD. Lungs- clear to auscultation no wheezing or crackles. Heart- regular rhythm; no murmur, no gallop. Abdomen- normal bowel sounds, soft, tenderness in LLQ. No distension. Extremities- no pretibial edema, no erythema seen. Neuro- alert, oriented x 3; PERRL, no facial palsy; no dysarthria; non focal. Skin- warm & dry Results & Data Results & Data Vital Signs (Past 12 Hours) Vital Signs Temp Pulse Pulse Resp BP BP Pulse Ox 08/07/23 04:45 85 08/07/23 03:00 92 H 17 167/106 H 94 08/07/23 02:31 95 H 18 162/103 H 94 08/07/23 02:30 20 96 08/07/23 02:00 98 H 16 183/109 H 93 08/07/23 01:30 94 H 14 172/93 H 92 08/07/23 00:42 93 H 08/07/23 01:01 90 18 167/99 H 94 08/07/23 01:00 92 H 21 167/99 H 94 08/07/23 00:42 94 H 22 95 08/07/23 00:31 37.0 C 98 H 18 154/102 H 94 08/06/23 23:16 36.5 C 107 H 19 175/104 H 96 O2 Del Method 08/07/23 04:45 08/07/23 03:00 Room Air 08/07/23 02:31 Room Air 10/16/23 02:30 Room Air 08/07/23 02:00 08/07/23 01:30 Room Air 08/07/23 00:42 08/07/23 01:01 Room Air 08/07/23 01:00 Room Air 08/07/23 00:42 08/07/23 00:31 Room Air 08/06/23 23:16 Room Air Diagnostic Findings Laboratory Results WBC 13.85 K/ul (4.8-10.8) H 08/07/23 00:07 RBC 5.04 M/uL (4.20-5.40) 08/07/23 00:07 Hgb 14.6 g/dl (12.0-16.0) 08/07/23 00:07 Hct 45.9 % (37.0-47.0) 08/07/23 00:07 MCV 91.1 fL (80.0-100.0) 08/07/23 00:07 MCH 29.0 pg (25.0-34.0) 08/07/23 00:07 MCHC 31.8 g/dL (32.0-36.0) L 08/07/23 00:07 RDW Std Deviation 44.8 fL (36.4-46.3) 08/07/23 00:07 RDW Coeff of [place] 13.3 % (11.5-14.5) 08/07/23 00:07 Plt Count 436 K/uL (130-400) H 08/07/23 00:07 MPV 9.4 fL (9.4-12.4) 08/07/23 00:07 Immature Gran % (Auto) 0.3 % 08/07/23 00:07 Neut % (Auto) 49.7 % 08/07/23 00:07 Lymph % (Auto) 41.2 % 08/07/23 00:07 [place] % (Auto) 5.1 % 08/07/23 00:07 Eos % (Auto) 2.8 % 08/07/23 00:07 Baso % (Auto) 0.9 % 08/07/23 00:07 Neut # (Auto) 6.88 K/uL (1.40-6.50) H 08/07/23 00:07 Lymph # (Auto) 5.71 K/uL (1.20-3.40) H 08/07/23 00:07 [place] # (Auto) 0.71 K/uL (0.11-0.59) H 08/07/23 00:07 Eos # (Auto) 0.39 K/uL (0.00-0.50) 08/07/23 00:07 Baso # (Auto) 0.12 K/uL (0.00-0.20) 08/07/23 00:07 Immature Gran # (Auto) 0.04 K/uL (0.01-0.20) 08/07/23 00:07 Sodium 136 mmol/L (136-145) 08/07/23 00:07 Potassium 4.4 mmol/L (3.5-5.1) 08/07/23 00:07 Chloride 101 mmol/L (98-107) 08/07/23 00:07 Carbon Dioxide 26 mmol/L (21-32) 08/07/23 00:07 Anion Gap 9 (3-11) 08/07/23 00:07 BUN 11 mg/dl (6-23) 08/07/23 00:07 Creatinine 0.96 mg/dl (0.6-1.2) 08/07/23 00:07 Est Cr Clr Drug Dosing 79.8 ml/min 08/07/23 00:07 Est GFR ( Amer) 79.4 ml/min 08/07/23 00:07 Est GFR (Non-Af Amer) 68.5 ml/min 08/07/23 00:07 BUN/Creatinine Ratio 11.5 (10-20) 08/07/23 00:07 Glucose 113 mg/dl (70-99(Fasting)) H 08/07/23 00:07 Lactate 1.5 mmol/L (0.4-2.0) 08/07/23 00:38 Calcium 9.7 mg/dl (8.6-10.3) 08/07/23 00:07 Magnesium 2.1 mg/dl (1.7-2.4) 08/07/23 00:07 Total Bilirubin 0.3 mg/dl (0.2-1.0) 08/07/23 00:07 AST 21 U/L (13-39) 08/07/23 00:07 ALT 22 U/L (7-52) 08/07/23 00:07 Alkaline Phosphatase 78 U/L (34-104) 08/07/23 00:07 Total Protein 8.1 gm/dl (6.0-8.3) 08/07/23 00:07 Albumin 4.5 gm/dl (3.4-5.0) 08/07/23 00:07 Globulin 3.6 gm/dl (2.5-4.0) 08/07/23 00:07 Albumin/Globulin Ratio 1.3 (0.9-2) 08/07/23 00:07 Lipase 18 U/L (11-82) 08/07/23 00:07 Urine Color Yellow 08/07/23 00:23 Urine Appearance Cloudy (Clear) A 08/07/23 00:23 Urine pH 6.0 (4.5-7.5) 08/07/23 00:23 Ur Specific [place] 1.013 (1.000-1.030) 08/07/23 00:23 Urine Protein Negative (Negative) 08/07/23 00:23 Urine Glucose (UA) Negative (Negative) 08/07/23 00:23 Urine Ketones Negative (Negative) 08/07/23 00:23 Urine Blood Trace (Negative) H 08/07/23 00:23 Urine Nitrite Negative (Negative) 08/07/23 00:23 Urine Bilirubin Negative (Negative) 08/07/23 00:23 Urine Urobilinogen Negative (Negative) 08/07/23 00:23 Ur Leukocyte Esterase Trace (Negative) H 08/07/23 00:23 Urine WBC (Auto) 10-30 /hpf (0-5) H 08/07/23 00:23 Urine RBC (Auto) 5-10 /hpf (0-4) H 08/07/23 00:23 U Hyaline Cast (Auto) 1-5 /lpf (0-5) 08/07/23 00:23 U Epithel Cells (Auto) >30 /lpf (0-5) H 08/07/23 00:23 Urine Bacteria (Auto) 1+ (Negative) H 08/07/23 00:23 Impressions Abdomen/Pelvis CT 08/07/23 01:49 Exam(s): CT ABDOMEN + PELVIS With Contrast IV Amt: 91 ml optiray 320 EXAM: CT Abdomen and Pelvis With Intravenous Contrast CLINICAL HISTORY: llq pain, hx divertic. TECHNIQUE: Axial computed tomography images of the abdomen and pelvis with intravenous contrast. CTDI is 28.14 mGy and DLP is 1443.54 mGy-cm. Automated exposure control was utilized for the study. A dose lowering technique was utilized adhering to the principles of ALARA. CONTRAST: Patient received 91 ml optiray 320 of IV contrast COMPARISON: CT with contrast dated 07/22/2023 FINDINGS: Lung bases: Unremarkable. No mass. No consolidation. Mediastinum: The stomach is predominantly decompressed. Small hiatal hernia. The small bowel demonstrates no evidence for obstruction or mucosal asymmetry. ABDOMEN: Liver: Unremarkable. No mass. Gallbladder and bile ducts: Cholecystectomy. No ductal dilation. Pancreas: Unremarkable. No mass. No ductal dilation. Spleen: Unremarkable. No splenomegaly. Adrenals: Unremarkable. No mass. Kidneys and ureters: The kidneys demonstrate normal enhancement. Probable subcentimeter nonobstructive nephrolithiasis involving the inferior pole of both kidneys. No hydronephrosis or ureteral stones. Stomach and bowel: Asymmetric pericolonic fat stranding noted with regional diverticula in the proximal sigmoid. Moderate stool burden. Postsurgical changes involving the splenic flexure and distal sigmoid colon. PELVIS: Appendix: Appendectomy. Bladder: Unremarkable. No mass. Reproductive: Status post hysterectomy. ABDOMEN and PELVIS: Intraperitoneal space: Unremarkable. No free air. No significant fluid collection. Bones/joints: No acute fracture. No dislocation. Soft tissues: Unremarkable. Vasculature: Unremarkable. No abdominal aortic aneurysm. Lymph nodes: Unremarkable. No enlarged lymph nodes. IMPRESSION: Asymmetric pericolonic fat stranding noted with regional diverticula in the proximal sigmoid. Findings are most consistent with recurrent sigmoid diverticulitis. This finding is in a similar location to the previous examination but is less prominent. No abscess or perforation. No bowel obstruction. Electronically signed by: Flo Clark MD 08/07/23 03:15 AM Code Status & VTE Plan VTE Prophylaxis Plan VTE Prophylaxis will be ordered: Yes
[2023-08-07] MEDS ORDERED: ACETAMINOPHEN 325 MG TAB PO PRN (07:38)
[2023-08-07] MEDS ORDERED: ALBUTEROL HFA 8 GM INHALER INH PRN (07:38)
[2023-08-07] MEDS: ENOXAPARIN INJ 40 MG/0.4 ML SYR SQ SCH (08:56)
[2023-08-07] MEDS: CEFEPIME 2,000 MG in SYRINGE 0 ML IV SCH ×2 (08:56→22:54)
[2023-08-07] MEDS: lisinopril 5 MG TAB PO SCH (08:58)
[2023-08-07] MEDS: D5W AND NSS 1,000 ML IV SCH ×3 (08:59→21:48)
[2023-08-07] MEDS: metroNIDAZOLE 500 MG/100 ML BAG IV SCH ×3 (08:59→22:55)
[2023-08-07] MEDS: ADVANCED PROBIOTIC 1250 MG CAPSULE PO SCH (09:17)
[2023-08-07] MEDS: VENLAFAXINE HCL XR 150 MG CAPXR PO SCH (09:18)
--- NOTE | 2023-08-07 10:35 | Hospitalist Progress Note ---
Date of Service August 07, 2023 Assessment & Plan (1) Acute diverticulitis: (2) Tobacco use disorder: (3) Mood disorder: (4) HTN (hypertension): (5) Morbid obesity: Plan 53-year-old female with past med history significant for hyperlipidemia, allergic rhinitis, irritable bowel syndrome, recurrent diverticulitis, history of c diff colitis, fibromyalgia, migraine, PTSD, generalized anxiety disorder, history of tobacco use, depression, presents with abdominal pain and found to have recurrent diverticulitis. Acute diverticulitis Recurrent diverticulitis recurrent diverticulitis with partial sigmoid colectomy with anastomosis in 2008, recent robotic laparoscopic partial colectomy in May 2023 at [facility] [place] Recently was admitted on July 22 and was discharged on July 28 with recurrent diverticulitis comes again with same diverticulitis Cont IV cefepime and Flagyl N.p.o., IV fluids, IV pain meds as needed Adding oral oxycodone given the IV option isn't lasting very long. Awaiting gen surg recommendations Also consulting ID in setting of recurrent infection. Mood disorder on venlafaxine, chronic, stable. HTN-chronic, at goal. Cont lisinopril per home regimen. Morbid obesity-weight loss recommended for overall better health. DVT prophylaxis: Lovenox Full Code Dispo-floor I spent a total of 60minutes coordinating, documenting, and providing care for this patient excluding time spent in the performance of separately billed services DO [facility] Hospitalist Admission and Anticipated Discharge Date Admission Date: August 07, 2023 Subjective 53 yo F with h/o recurrent diveticulitis s/p two partial colectomies in past, the latest was a robotic-assisted laparoscopic splenic flexure resection with primary stapled anastomosis at [facility] in [place] on 06/01/2023. She was hospitalized 07/22-07/28 for recurrent diverticulitis in the descending colon without evidence of perforation or abscess. She was treated with IV abx, bowel rest and IV fluids. She was sent home and reported not feeling fully recovered despite completing her oral abx last Tu (one week ago). Yesterday she had abrupt pain in the suprapubic area>LLQ along with fever. Intermittent loose stools reported with no blood per rectum. She feels about the same this morning on Cefepime and IV flagyl. Afebrile overnight with WBC increased to 14K. Physical Exam Physical Exam: CONSTITUTIONAL: obese, vitals as above, generally well-appearing, NAD EYES: normal conjunctivae, no scleral icterus ENT: external ear and nose normal, MMM NECK: trachea midline RESPIRATORY: clear to auscultation bilaterally, no crackles, rales or wheezes, normal respiratory effort CARDIOVASCULAR: regular rate and rhythm, S1 and 2 heard without murmurs, gallops or rubs, no JVD, no peripheral edema CHEST: inspection of chest was normal GASTROINTESTINAL: soft, TTP in suprapubic and LLQ regions, there are well healed laparoscopic scars present and some firmness to the tissues under these, possible representing post op inflammation vs scar tissue, no guarding. MUSCULOSKELETAL: strength 5/5 throughout, head is normocephalic and atraumatic SKIN: warm and dry NEUROLOGIC: CN 2-12 grossly intact, no sensory deficit, normal cognition, normal speech, no tremor PSYCHIATRIC: alert cooperative and oriented to person, place and time. Results & Data Results & Data Vital Signs (Past 12 Hours) Vital Signs Temp Pulse Pulse Resp BP BP Pulse Ox 08/07/23 08:02 75 08/07/23 06:00 85 08/07/23 05:31 82 20 148/99 H 92 08/07/23 05:30 88 15 93 08/07/23 05:23 118 H 23 198/123 H 94 08/07/23 05:00 90 16 94 08/07/23 04:30 86 17 165/100 H 93 08/07/23 04:00 90 17 176/120 H 92 08/07/23 03:30 90 16 185/111 H 94 08/07/23 04:00 08/07/23 04:45 85 08/07/23 03:00 92 H 17 167/106 H 94 08/07/23 02:31 95 H 18 162/103 H 94 08/07/23 02:30 20 96 08/07/23 02:00 98 H 16 183/109 H 93 08/07/23 01:30 94 H 14 172/93 H 92 08/07/23 00:42 93 H 08/07/23 01:01 90 18 167/99 H 94 08/07/23 01:00 92 H 21 167/99 H 94 08/07/23 00:42 94 H 22 95 08/07/23 00:31 37.0 C 98 H 18 154/102 H 94 08/06/23 23:16 36.5 C 107 H 19 175/104 H 96 O2 Del Method 08/07/23 08:02 08/07/23 06:00 Room Air 08/07/23 05:31 Room Air 08/07/23 05:30 Room Air 08/07/23 05:23 Room Air 08/07/23 05:00 Room Air 08/07/23 04:30 08/07/23 04:00 08/07/23 03:30 08/07/23 04:00 Room Air 08/07/23 04:45 08/07/23 03:00 Room Air 08/07/23 02:31 Room Air 08/07/23 02:30 Room Air 08/07/23 02:00 08/07/23 01:30 Room Air 08/07/23 00:42 08/07/23 01:01 Room Air 08/07/23 01:00 Room Air 08/07/23 00:42 08/07/23 00:31 Room Air 08/06/23 23:16 Room Air Laboratory Results Short CBC 08/07/23 Range/Units 00:07 WBC 13.85 H (4.8-10.8) K/ul Hgb 14.6 (12.0-16.0) g/dl Hct 45.9 (37.0-47.0) % Plt Count 436 H (130-400) K/uL BMP 08/07/23 00:07 Sodium 136 Potassium 4.4 Chloride 101 Carbon Dioxide 26 BUN 11 Creatinine 0.96 Glucose 113 H Calcium 9.7 Liver Function 08/07/23 Range/Units 00:07 Total Bilirubin 0.3 (0.2-1.0) mg/dl AST 21 (13-39) U/L ALT 22 (7-52) U/L Alkaline Phosphatase 78 (34-104) U/L Albumin 4.5 (3.4-5.0) gm/dl Urine 08/07/23 Range/Units 00:23 Urine Color Yellow Urine Appearance Cloudy A (Clear) Urine pH 6.0 (4.5-7.5) Ur Specific [place] 1.013 (1.000-1.030) Urine Protein Negative (Negative) Urine Glucose (UA) Negative (Negative) Diagnostic Findings Abdomen/Pelvis CT 08/07/23 01:49 Exam(s): CT ABDOMEN + PELVIS With Contrast IV Amt: 91 ml optiray 320 EXAM: CT Abdomen and Pelvis With Intravenous Contrast CLINICAL HISTORY: llq pain, hx divertic. TECHNIQUE: Axial computed tomography images of the abdomen and pelvis with intravenous contrast. CTDI is 28.14 mGy and DLP is 1443.54 mGy-cm. Automated exposure control was utilized for the study. A dose lowering technique was utilized adhering to the principles of ALARA. CONTRAST: Patient received 91 ml optiray 320 of IV contrast COMPARISON: CT with contrast dated 07/22/2023 FINDINGS: Lung bases: Unremarkable. No mass. No consolidation. Mediastinum: The stomach is predominantly decompressed. Small hiatal hernia. The small bowel demonstrates no evidence for obstruction or mucosal asymmetry. ABDOMEN: Liver: Unremarkable. No mass. Gallbladder and bile ducts: Cholecystectomy. No ductal dilation. Pancreas: Unremarkable. No mass. No ductal dilation. Spleen: Unremarkable. No splenomegaly. Adrenals: Unremarkable. No mass. Kidneys and ureters: The kidneys demonstrate normal enhancement. Probable subcentimeter nonobstructive nephrolithiasis involving the inferior pole of both kidneys. No hydronephrosis or ureteral stones. Stomach and bowel: Asymmetric pericolonic fat stranding noted with regional diverticula in the proximal sigmoid. Moderate stool burden. Postsurgical changes involving the splenic flexure and distal sigmoid colon. PELVIS: Appendix: Appendectomy. Bladder: Unremarkable. No mass. Reproductive: Status post hysterectomy. ABDOMEN and PELVIS: Intraperitoneal space: Unremarkable. No free air. No significant fluid collection. Bones/joints: No acute fracture. No dislocation. Soft tissues: Unremarkable. Vasculature: Unremarkable. No abdominal aortic aneurysm. Lymph nodes: Unremarkable. No enlarged lymph nodes. IMPRESSION: Asymmetric pericolonic fat stranding noted with regional diverticula in the proximal sigmoid. Findings are most consistent with recurrent sigmoid diverticulitis. This finding is in a similar location to the previous examination but is less prominent. No abscess or perforation. No bowel obstruction. Electronically signed by: Flo Clark MD 08/07/23 03:15 AM Medications Administered Current Inpatient Medications Acetaminophen (Acetaminophen 325 Mg Tab) 650 mg PO Q4H PRN PRN Reason: pain/fever Stop: 09/06/23 07:37 Albuterol (Albuterol Hfa 8 Gm Inhaler) 2 puffs INH Q4H PRN PRN Reason: Shortness Of Breath Or Wheezing Stop: 09/06/23 07:37 Enoxaparin Sodium (Enoxaparin Inj 40 Mg/0.4 Ml Syr) 40 mg SQ Q24H NIRAJ Stop: 09/06/23 07:37 Last Admin: 08/07/23 08:56 Dose: 40 mg Hydromorphone HCl (Hydromorphone Inj 0.5 Mg/0.5 Ml Syr) 0.5 mg IV Q3H PRN PRN Reason: Pain Stop: 08/21/23 07:37 Last Admin: 08/07/23 08:53 Dose: 0.5 mg Dextrose/Sodium Chloride (D5w And Nss) 1,000 mls @ 125 mls/hr IV .Q8H NIRAJ Stop: 09/06/23 07:37 Last Admin: 08/07/23 08:59 Dose: 125 mls/hr Cefepime HCl 2,000 mg/ Syringe 20 mls @ 5 mls/min IV Q12H NIRAJ; Protocol Stop: 08/17/23 08:59 Last Admin: 08/07/23 08:56 Dose: 5 mls/min Metronidazole (Flagyl) 500 mg in 100 mls @ 100 mls/hr IV Q8H [facility]; Protocol Stop: 08/17/23 07:59 Last Infusion: 08/07/23 10:19 Dose: Infused Lactobacillus Acidophilus (Advanced Probiotic 1250 Mg Capsule) 2 cap PO DAILY NIRAJ Stop: 09/06/23 08:59 Last Admin: 08/07/23 09:17 Dose: 2 cap Lisinopril (Lisinopril 5 Mg Tab) 5 mg PO DAILY NIRAJ Stop: 09/06/23 08:59 Last Admin: 08/07/23 08:58 Dose: 5 mg Ondansetron HCl (Ondansetron Inj 2 Mg/Ml 2 Ml Vial) 4 mg IV Q6H PRN PRN Reason: Nausea Stop: 09/06/23 07:37 Venlafaxine HCl (Venlafaxine Hcl Xr 150 Mg Capxr) 150 mg PO DAILY NIRAJ Stop: 09/06/23 08:59 Last Admin: 08/07/23 09:18 Dose: 150 mg
[2023-08-07] MEDS ORDERED: oxyCODONE HCL IR 5 MG TAB (IMMEDIATE RELEASE) PO STA (11:08)
--- NOTE | 2023-08-07 11:59 | Surgery Consultation ---
Date of Consultation August 07, 2023 Assessment & Plan (1) Acute diverticulitis: Recurrent diverticulitis s/p colon resection x 2 with most recent surgery at [facility] with Colorectal surgeon Dr. Kelly (May 2023) afebrile leukocytosis of 13k CT scan with uncomplicated diverticulitis of proximal sigmoid colon Plan: Continue antibiotics continue pain management continue medical management no surgical intervention required given uncomplicated diverticulitis. Patient needs to get scheduled with her colorectal surgeon for follow-up and discussion of recent hospital admission and further management. Our services signing off, we will follow peripherally Dr. Coats has seen and examined pt, agrees with above. Plan I have seen and examined the patient personally and agree with the above assessment and plan. On exam, her abdomen is soft, with mild tenderness to palpation left lower quadrant. This is recurrent diverticulitis. She has been in the hospital before. The CT scan actually appears improved from her previous hospitalization. She is still approximately 9 weeks status post a sigmoid resection for diverticulitis in [place]. There is no surgical intervention required at this time. She will need to see her colorectal surgeon for follow- up once she is discharged from the hospital. Please call with any questions or concerns. History of Present Illness Reason for Consultation: Recurrent diverticulitis Requesting Physician: Dr. Wei Attending Physician: Mindy Jessica, History of Present Illness Chantelle is a 53 year-old female with history of diverticulitis s/p resection x 2 now with most recent surgery done at [facility] in May 2023 (robotic assisted, descending colon resection) by Dr. Kelly. Was recently hospitalized here at [facility] from 07/22/2023-07/28/2023 and was discharged home on oral antibiotics. States she finished antibiotics on Monday and then pain started Monday morning and severe and quick in nature. Had associated nausea and vomiting. Some chills. States she has not had a chance to get set up with follow-up with Dr. Kelly but saw her PCP. ER work-up showed leukocytosis of 13k. CT scan of abdomen and pelvis with IV contrast showed Asymmetric pericolonic fat stranding noted with regional diverticula in the proximal sigmoid. Findings are most consistent with recurrent sigmoid diverticulitis. This finding is in a similar location to the previous examination but is less prominent. No abscess or perforation.No bowel obstruction. Allergies Allergy/AdvReac Type Severity Reaction Status Date / Time ibuprofen Allergy Severe Shortness Verified 03/22/23 22:48 of breath and hives ketorolac Allergy Severe HIVES/DIFFICULTY Verified 03/22/23 22:48 BREATHING moxifloxacin Allergy Severe Shortness Verified 03/22/23 22:48 of breath/dizziness Penicillins Allergy Severe Anaphylaxis Verified 03/22/23 22:48 /HIVES Sulfa (Sulfonamide Allergy Severe Shortness Verified 03/22/23 22:48 Antibiotics) of breath and hives tramadol Allergy Severe HIVES/DIFFICULTY Verified 03/22/23 22:48 BREATHING aspirin Allergy Unknown Unknown Verified 03/22/23 22:48 dicyclomine [From Bentyl] AdvReac Intermediate Constipatio Verified 03/22/23 22:48 n haloperidol AdvReac Intermediate "KEEPS ME Verified 03/22/23 22:48 AWAKE, CAN'T SLEEP". hydrocodone AdvReac Intermediate Vomiting Verified 03/22/23 22:49 prochlorperazine AdvReac Intermediate MOTOR Verified 03/22/23 22:49 RESTLESSNESS Home Medications Medication Instructions Recorded Confirmed Type albuterol sulfate 90 mcg/actuation 2 inh inhalation Q4H PRN Shortness 08/07/23 08/07/23 History aerosol inhaler Of Breath Or Wheezing lisinopril 5 mg tablet 5 mg PO DAILY 08/07/23 08/07/23 History venlafaxine 150 mg 150 mg PO DAILY 08/07/23 08/07/23 History capsule,extended release 24 hr Patient History Medical History (Updated 08/07/23 @ 11:29 by Mindy Jessica, ) Asthma Depression Facial pain DWAYNE (generalized anxiety disorder) Gastroparesis Generalized pruritus GERD (gastroesophageal reflux disease) History of Clostridium difficile colitis HLD (hyperlipidemia) HTN (hypertension) IBS (irritable bowel syndrome) Migraine Osteomyelitis Pancreatitis Squamous cell carcinoma of left shoulder Suicide attempt by drug ingestion On 04/21/16 10:30 Helene Rene wrote "03/22/2016" TIA (transient ischemic attack) Surgical History H/O colonoscopy H/O esophagogastroduodenoscopy H/O tubal ligation H/O unilateral oophorectomy History of colectomy due to diverticulitis 2009, Dr. Mancuso 2009 Hx of appendectomy Hx of tonsillectomy S/P cholecystectomy S/P MARLON (total abdominal hysterectomy) Family History Father Type 2 diabetes mellitus Mother Myocardial infarction Social History Smoking Status: Current every day smoker Tobacco Type: Cigarettes Cigarettes Per Day: 10; Second Hand Exposure: No; Do You Dip or Chew Tobacco: No; Hx Alcohol Use: No Hx Substance Use: No Preferred Language: Lithuanian Communication Ability: Effective Assistant [employer] Required: No Beliefs That Will Affect Care: None Current Living Situation: Alone Other Information That Helps Us Care for You: No Feels Safe at Home: Yes Safety Concerns: Feels Safe At This Time Assistive Devices: None Review of Systems Review of Systems: All systems reviewed & are unremarkable except as noted in HPI & below Physical Exam Constitutional: WD/WN, vitals as above + obese, cooperative and comfortable; no acute distress and not ill appearing Respiratory: normal respiratory effort; no respiratory distress Gastrointestinal (Abdomen): Inspection/Auscultation: abdomen normal to inspection; abdomen not distended Percussion/Palpation: + abdomen tender (left mid to lower abdomen) and abdomen soft; no guarding, abdomen not rigid and abdomen not firm Skin: no rashes, warm and dry Psychiatric: A+Ox3, euthymic affect Results & Data Vital Signs (Past 12 Hours) Vital Signs Temp Pulse Pulse Resp BP BP Pulse Ox 08/07/23 08:02 75 08/07/23 06:00 85 08/07/23 05:31 82 20 148/99 H 92 08/07/23 05:30 88 15 93 08/07/23 05:23 118 H 23 198/123 H 94 08/07/23 05:00 90 16 94 08/07/23 04:30 86 17 165/100 H 93 08/07/23 04:00 90 17 176/120 H 92 08/07/23 03:30 90 16 185/111 H 94 08/07/23 04:00 08/07/23 04:45 85 08/07/23 03:00 92 H 17 167/106 H 94 08/07/23 02:31 95 H 18 162/103 H 94 08/07/23 02:30 20 96 08/07/23 02:00 98 H 16 183/109 H 93 08/07/23 01:30 94 H 14 172/93 H 92 08/07/23 00:42 93 H 08/07/23 01:01 90 18 167/99 H 94 08/07/23 01:00 92 H 21 167/99 H 94 08/07/23 00:42 94 H 22 95 08/07/23 00:31 37.0 C 98 H 18 154/102 H 94 O2 Del Method 08/07/23 08:02 08/07/23 06:00 Room Air 08/07/23 05:31 Room Air 08/07/23 05:30 Room Air 08/07/23 05:23 Room Air 08/07/23 05:00 Room Air 08/07/23 04:30 08/07/23 04:00 08/07/23 03:30 08/07/23 04:00 Room Air 08/07/23 04:45 08/07/23 03:00 Room Air 08/07/23 02:31 Room Air 08/07/23 02:30 Room Air 08/07/23 02:00 08/07/23 01:30 Room Air 08/07/23 00:42 08/07/23 01:01 Room Air 08/07/23 01:00 Room Air 08/07/23 00:42 08/07/23 00:31 Room Air Laboratory Results 08/07/23 08/07/23 08/07/23 Range/Units 00:38 00:23 00:07 WBC (4.8-10.8) K/ul RBC (4.20-5.40) M/uL Hgb (12.0-16.0) g/dl Hct (37.0-47.0) % MCV (80.0-100.0) fL MCH (25.0-34.0) pg MCHC (32.0-36.0) g/dL RDW Std Deviation (36.4-46.3) fL RDW Coeff of Liat (11.5-14.5) % Plt Count (130-400) K/uL MPV (9.4-12.4) fL Immature Gran % (Auto) % Neut % (Auto) % Lymph % (Auto) % [place] % (Auto) % Eos % (Auto) % Baso % (Auto) % Neut # (Auto) (1.40-6.50) K/uL Lymph # (Auto) (1.20-3.40) K/uL [place] # (Auto) (0.11-0.59) K/uL Eos # (Auto) (0.00-0.50) K/uL Baso # (Auto) (0.00-0.20) K/uL Immature Gran # (Auto) (0.01-0.20) K/uL Sodium 136 (136-145) mmol/L Potassium 4.4 (3.5-5.1) mmol/L Chloride 101 (98-107) mmol/L Carbon Dioxide 26 (21-32) mmol/L Anion Gap 9 (3-11) BUN 11 (6-23) mg/dl Creatinine 0.96 (0.6-1.2) mg/dl Est Cr Clr Drug Dosing 79.8 ml/min Est GFR ( Amer) 79.4 ml/min Est GFR (Non-Af Amer) 68.5 ml/min BUN/Creatinine Ratio 11.5 (10-20) Glucose 113 H (70-99(Fasting)) mg/dl Lactate 1.5 (0.4-2.0) mmol/L Calcium 9.7 (8.6-10.3) mg/dl Magnesium 2.1 (1.7-2.4) mg/dl Total Bilirubin 0.3 (0.2-1.0) mg/dl AST 21 (13-39) U/L ALT 22 (7-52) U/L Alkaline Phosphatase 78 (34-104) U/L Total Protein 8.1 (6.0-8.3) gm/dl Albumin 4.5 (3.4-5.0) gm/dl Globulin 3.6 (2.5-4.0) gm/dl Albumin/Globulin Ratio 1.3 (0.9-2) Lipase 18 (11-82) U/L Urine Color Yellow Urine Appearance Cloudy A (Clear) Urine pH 6.0 (4.5-7.5) Ur Specific [place] 1.013 (1.000-1.030) Urine Protein Negative (Negative) Urine Glucose (UA) Negative (Negative) Urine Ketones Negative (Negative) Urine Blood Trace H (Negative) Urine Nitrite Negative (Negative) Urine Bilirubin Negative (Negative) Urine Urobilinogen Negative (Negative) Ur Leukocyte Esterase Trace H (Negative) Urine WBC (Auto) 10-30 H (0-5) /hpf Urine RBC (Auto) 5-10 H (0-4) /hpf U Hyaline Cast (Auto) 1-5 (0-5) /lpf U Epithel Cells (Auto) >30 H (0-5) /lpf Urine Bacteria (Auto) 1+ H (Negative) 08/07/23 Range/Units 00:07 WBC 13.85 H (4.8-10.8) K/ul RBC 5.04 (4.20-5.40) M/uL Hgb 14.6 (12.0-16.0) g/dl Hct 45.9 (37.0-47.0) % MCV 91.1 (80.0-100.0) fL MCH 29.0 (25.0-34.0) pg MCHC 31.8 L (32.0-36.0) g/dL RDW Std Deviation 44.8 (36.4-46.3) fL RDW Coeff of Liat 13.3 (11.5-14.5) % Plt Count 436 H (130-400) K/uL MPV 9.4 (9.4-12.4) fL Immature Gran % (Auto) 0.3 % Neut % (Auto) 49.7 % Lymph % (Auto) 41.2 % [place] % (Auto) 5.1 % Eos % (Auto) 2.8 % Baso % (Auto) 0.9 % Neut # (Auto) 6.88 H (1.40-6.50) K/uL Lymph # (Auto) 5.71 H (1.20-3.40) K/uL [place] # (Auto) 0.71 H (0.11-0.59) K/uL Eos # (Auto) 0.39 (0.00-0.50) K/uL Baso # (Auto) 0.12 (0.00-0.20) K/uL Immature Gran # (Auto) 0.04 (0.01-0.20) K/uL Sodium (136-145) mmol/L Potassium (3.5-5.1) mmol/L Chloride (98-107) mmol/L Carbon Dioxide (21-32) mmol/L Anion Gap (3-11) BUN (6-23) mg/dl Creatinine (0.6-1.2) mg/dl Est Cr Clr Drug Dosing ml/min Est GFR ( Amer) ml/min Est GFR (Non-Af Amer) ml/min BUN/Creatinine Ratio (10-20) Glucose (70-99(Fasting)) mg/dl Lactate (0.4-2.0) mmol/L Calcium (8.6-10.3) mg/dl Magnesium (1.7-2.4) mg/dl Total Bilirubin (0.2-1.0) mg/dl AST (13-39) U/L ALT (7-52) U/L Alkaline Phosphatase (34-104) U/L Total Protein (6.0-8.3) gm/dl Albumin (3.4-5.0) gm/dl Globulin (2.5-4.0) gm/dl Albumin/Globulin Ratio (0.9-2) Lipase (11-82) U/L Urine Color Urine Appearance (Clear) Urine pH (4.5-7.5) Ur Specific [place] (1.000-1.030) Urine Protein (Negative) Urine Glucose (UA) (Negative) Urine Ketones (Negative) Urine Blood (Negative) Urine Nitrite (Negative) Urine Bilirubin (Negative) Urine Urobilinogen (Negative) Ur Leukocyte Esterase (Negative) Urine WBC (Auto) (0-5) /hpf Urine RBC (Auto) (0-4) /hpf U Hyaline Cast (Auto) (0-5) /lpf U Epithel Cells (Auto) (0-5) /lpf Urine Bacteria (Auto) (Negative) Diagnostic Findings Exam(s): CT ABDOMEN + PELVIS With Contrast IV Amt: 91 ml optiray 320 EXAM: CT Abdomen and Pelvis With Intravenous Contrast CLINICAL HISTORY: llq pain, hx divertic. TECHNIQUE: Axial computed tomography images of the abdomen and pelvis with intravenous contrast. CTDI is 28.14 mGy and DLP is 1443.54 mGy-cm. Automated exposure control was utilized for the study. A dose lowering technique was utilized adhering to the principles of ALARA. CONTRAST: Patient received 91 ml optiray 320 of IV contrast COMPARISON: CT with contrast dated 07/22/2023 FINDINGS: Lung bases: Unremarkable. No mass. No consolidation. Mediastinum: The stomach is predominantly decompressed. Small hiatal hernia. The small bowel demonstrates no evidence for obstruction or mucosal asymmetry. ABDOMEN: Liver: Unremarkable. No mass. Gallbladder and bile ducts: Cholecystectomy. No ductal dilation. Pancreas: Unremarkable. No mass. No ductal dilation. Spleen: Unremarkable. No splenomegaly. Adrenals: Unremarkable. No mass. Kidneys and ureters: The kidneys demonstrate normal enhancement. Probable subcentimeter nonobstructive nephrolithiasis involving the inferior pole of both kidneys. No hydronephrosis or ureteral stones. Stomach and bowel: Asymmetric pericolonic fat stranding noted with regional diverticula in the proximal sigmoid. Moderate stool burden. Postsurgical changes involving the splenic flexure and distal sigmoid colon. PELVIS: Appendix: Appendectomy. Bladder: Unremarkable. No mass. Reproductive: Status post hysterectomy. ABDOMEN and PELVIS: Intraperitoneal space: Unremarkable. No free air. No significant fluid collection. Bones/joints: No acute fracture. No dislocation. Soft tissues: Unremarkable. Vasculature: Unremarkable. No abdominal aortic aneurysm. Lymph nodes: Unremarkable. No enlarged lymph nodes. IMPRESSION: Asymmetric pericolonic fat stranding noted with regional diverticula in the proximal sigmoid. Findings are most consistent with recurrent sigmoid diverticulitis. This finding is in a similar location to the previous examination but is less prominent. No abscess or perforation. No bowel obstruction. Electronically signed by: Flo Clark MD 08/07/23 03:15 AM
[2023-08-07] MEDS: ONDANSETRON INJ 2 MG/ML 2 ML VIAL IV PRN (18:56)
[2023-08-07] MEDS: oxyCODONE HCL IR 5 MG TAB (IMMEDIATE RELEASE) PO PRN (21:48)
[2023-08-08] MEDS: HYDROmorphone INJ 0.5 MG/0.5 ML SYR IV PRN ×5 (01:49→15:53)
[2023-08-08] MEDS: ONDANSETRON INJ 2 MG/ML 2 ML VIAL IV PRN (04:47)
[2023-08-08 06:49] LABS: Basophils # (auto) 0.06 K/uL (0.00-0.20); Eosinophils % (auto) 6.7 %; Hematocrit (blood only) 37.9 % (37.0-47.0); Hemoglobin 12.1 g/dl (12.0-16.0); Immature Granulocytes # (auto) 0.02 K/uL (0.01-0.20); Immature Granulocytes % (auto) 0.3 %; Lymphocytes # (auto) 2.64 K/uL (1.20-3.40); Lymphocytes % (auto) 44.3 %; Mean Corpuscular Hemoglobin 29.2 pg (25.0-34.0); Mean Corpuscular Hgb Conc 31.9 g/dL (32.0-36.0); Mean Corpuscular Volume 91.5 fL (80.0-100.0); Mean Platelet Volume 9.1 fL (9.4-12.4); Monocytes # (auto) 0.48 K/uL (0.11-0.59); Monocytes % (auto) 8.1 %; Neutrophils # (auto) 2.36 K/uL (1.40-6.50); Neutrophils % (auto) 39.6 %; Platelet Count 288 K/uL (130-400); RDW Coefficient of Variation 13.4 % (11.5-14.5); RDW Standard Deviation 45.4 fL (36.4-46.3); Red Blood Count 4.14 M/uL (4.20-5.40); White Blood Count 5.96 K/ul (4.8-10.8)
[2023-08-08 07:05] LABS: BUN Creatinine Ratio 9.6 (10-20); Calcium 8.5 mg/dl (8.6-10.3); Creatinine Clr Calc Pharmacy 92.3 ml/min; Est GFR (African American) 94.6 ml/min; Est GFR (Non-African American) 81.6 ml/min; Magnesium 2.3 mg/dl (1.7-2.4); Potassium 4.5 mmol/L (3.5-5.1)
[2023-08-08] MEDS: D5W AND NSS 1,000 ML IV SCH ×3 (08:03→23:46)
[2023-08-08] MEDS: metroNIDAZOLE 500 MG/100 ML BAG IV SCH ×3 (08:04→23:44)
[2023-08-08] MEDS: CEFEPIME 2,000 MG in SYRINGE 0 ML IV SCH ×3 (09:26→21:21)
[2023-08-08] MEDS: ENOXAPARIN INJ 40 MG/0.4 ML SYR SQ SCH (09:26)
[2023-08-08] MEDS: VENLAFAXINE HCL XR 150 MG CAPXR PO SCH (09:27)
[2023-08-08] MEDS: lisinopril 5 MG TAB PO SCH (09:27)
[2023-08-08] MEDS: ADVANCED PROBIOTIC 1250 MG CAPSULE PO SCH (09:27)
[2023-08-08] MEDS: oxyCODONE HCL IR 5 MG TAB (IMMEDIATE RELEASE) PO PRN (10:42)
--- NOTE | 2023-08-08 11:27 | Hospitalist Progress Note ---
Date of Service August 08, 2023 Assessment & Plan (1) Acute diverticulitis: (2) Tobacco use disorder: (3) Mood disorder: (4) HTN (hypertension): (5) Morbid obesity: Plan 53-year-old female with past med history significant for hyperlipidemia, allergic rhinitis, irritable bowel syndrome, recurrent diverticulitis, history of c diff colitis, fibromyalgia, migraine, PTSD, generalized anxiety disorder, history of tobacco use, depression, presents with abdominal pain and found to have recurrent diverticulitis. Acute diverticulitis Recurrent diverticulitis recurrent diverticulitis with partial sigmoid colectomy with anastomosis in 2008, recent robotic laparoscopic partial colectomy of splenic flexure in May 2023 at [facility] Recently was admitted on July 22 and was discharged on July 28 with recurrent diverticulitis comes again with same diverticulitis Cont IV cefepime and Flagyl (previously on this during last hospitalization) will continue N.p.o. given persistent pain, IV fluids, IV pain meds as needed Adding oral oxycodone given the IV option isn't lasting very long. Appreciate general surgery recs who will follow peripherally continue conservative management, no indication for surgical intervention Await ID recommendations regarding antibiotics Mood disorder on venlafaxine, chronic, stable. HTN-chronic, at goal. Cont lisinopril per home regimen. Morbid obesity-weight loss recommended for overall better health. DVT prophylaxis: Lovenox Full Code Dispo-continue to remain hospitalized, keep NPO for now until pain improved, Awaiting ID recs Pt was seen and examined in collaboration with Dr. Son, please see addendum Admission and Anticipated Discharge Date Admission Date: August 07, 2023 Supervising Physician Co-Signing Physician Notes I have seen and discussed the case with the collaborating [facility]. I agree with the above H&P. I have reviewed and confirmed the patients medical history, the findings on physical examination, and the patients diagnosis and treatment plan with Kishor IVEY and agree with the information documented. Plan as documented above Subjective 53 yo F with h/o recurrent diveticulitis s/p two partial colectomies in past, the latest was a robotic-assisted laparoscopic splenic flexure resection with primary stapled anastomosis at [facility] in [place] on 06/01/2023. She was hospitalized 07/22-07/28 for recurrent diverticulitis in the descending colon without evidence of perforation or abscess. She was treated with IV abx, bowel rest and IV fluids. She was sent home and reported not feeling fully recovered despite completing her oral abx last Tues (one week ago). She feels like the nausea is subsiding and pain is slightly improved. Still continues with pain to LLQ and occasional RLQ. Remains NPO on bowel rest. Last BM yesterday, passing flatus, no blood. Denies f/c/s, chest pain, sob, n/v/d. Review of Systems Review of Systems: All systems reviewed & are unremarkable except as noted in HPI & below Physical Exam Physical Exam: Gen: WD/WN, NAD, A&O x3 HEENT: Normocephalic, atraumatic, conjunctivae moist, sclerae anicteric, mucous membranes moist. Lung: Clear to Auscultation bilaterally, no wheezes/rales/rhonchi Heart: Regular rate, regular rhythm, no murmurs, rubs, or gallops Abdomen: Soft, TTP LLQ and suprapubic region, no rebound, guarding or tenderness, ND +BS x 4 Extremities: No edema Skin: Warm, no rash, negative turgor. Results & Data Results & Data Vital Signs (Past 12 Hours) Vital Signs Temp Pulse Resp BP Pulse Ox O2 Del Method 08/08/23 09:45 Room Air 08/08/23 07:07 36.8 C 94 H 18 129/85 95 Room Air Laboratory Results Short CBC 08/08/23 Range/Units 06:31 WBC 5.96 (4.8-10.8) K/ul Hgb 12.1 (12.0-16.0) g/dl Hct 37.9 (37.0-47.0) % Plt Count 288 (130-400) K/uL BMP 08/08/23 06:31 Sodium 142 Potassium 4.5 Chloride 110 H Carbon Dioxide 29 BUN 8 Creatinine 0.83 Glucose 114 H Calcium 8.5 L Medications Administered Current Inpatient Medications Acetaminophen (Acetaminophen 325 Mg Tab) 650 mg PO Q4H PRN PRN Reason: pain/fever Stop: 09/06/23 07:37 Albuterol (Albuterol Hfa 8 Gm Inhaler) 2 puffs INH Q4H PRN PRN Reason: Shortness Of Breath Or Wheezing Stop: 09/06/23 07:37 Enoxaparin Sodium (Enoxaparin Inj 40 Mg/0.4 Ml Syr) 40 mg SQ Q24H NIRAJ Stop: 09/06/23 07:37 Last Admin: 08/08/23 09:26 Dose: 40 mg Hydromorphone HCl (Hydromorphone Inj 0.5 Mg/0.5 Ml Syr) 0.5 mg IV Q3H PRN PRN Reason: Pain Stop: 08/21/23 07:37 Last Admin: 08/08/23 09:25 Dose: 0.5 mg Dextrose/Sodium Chloride (D5w And Nss) 1,000 mls @ 125 mls/hr IV .Q8H NIRAJ Stop: 09/06/23 07:37 Last Admin: 08/08/23 08:03 Dose: 125 mls/hr Cefepime HCl 2,000 mg/ Syringe 20 mls @ 5 mls/min IV Q12H NIRAJ; Protocol Stop: 08/17/23 08:59 Last Admin: 08/08/23 09:26 Dose: 5 mls/min Metronidazole (Flagyl) 500 mg in 100 mls @ 100 mls/hr IV Q8H NIRAJ; Protocol Stop: 08/17/23 07:59 Last Infusion: 08/08/23 09:04 Dose: Infused Lactobacillus Acidophilus (Advanced Probiotic 1250 Mg Capsule) 2 cap PO DAILY NIRAJ Stop: 09/06/23 08:59 Last Admin: 08/08/23 09:27 Dose: 2 cap Lisinopril (Lisinopril 5 Mg Tab) 5 mg PO DAILY NIRAJ Stop: 09/06/23 08:59 Last Admin: 08/08/23 09:27 Dose: 5 mg Ondansetron HCl (Ondansetron Inj 2 Mg/Ml 2 Ml Vial) 4 mg IV Q6H PRN PRN Reason: Nausea Stop: 09/06/23 07:37 Last Admin: 08/08/23 04:47 Dose: 4 mg Oxycodone HCl (Oxycodone Hcl Ir 5 Mg Tab (Immediate Release)) 5 mg PO Q6H PRN PRN Reason: Severe Pain (Scale 7, 8, 9,10) Stop: 08/21/23 11:07 Last Admin: 08/08/23 10:42 Dose: 5 mg Venlafaxine HCl (Venlafaxine Hcl Xr 150 Mg Capxr) 150 mg PO DAILY NIRAJ Stop: 09/06/23 08:59 Last Admin: 08/08/23 09:27 Dose: 150 mg
--- NOTE | 2023-08-08 15:49 | Infectious Disease Consult ---
Date of Service August 08, 2023 Telehealth Information I performed this visit using a real-time telehealth connection between my location and the patients location (). After connecting through interactive tele-video, patient was identified by name and date of and/or wristband check.Patient (or authorized healthcare arborist representative) was informed that this was a telemedicine visit and it was being conducted confidentially over secure lines. My office door was closed and no one else was present in the room with me.Patient (or authorized healthcare arborist representative) provided consent to proceed with the visit, expressed an understanding of privacy and security of the telemedicine visit, and gave permission to have a hospital arborist representative in the room in order to assist with the visit and to conduct portions of the visit, as needed. I informed the patient (or authorized healthcare arborist representative) that I reviewed their record and presented the opportunity for them to ask any questions regarding the visit today. The patient agreed to participate. Assessment & Plan (1) Diverticulitis: Plan: Assessment: Recurrent sigmoid diverticulitis Hx of partial sigmoid colectomy w/ anastomsosis (2008) and robotic lap partial colectomy (05/2023), IBS, C diff colitis Hx of allergy to moxi (sob), pcn (anaphlaxis), sulfa (sob) Recommendations: - I agree w/ cefepime and metronidazole (metronidazole can be oral) - If the patient clinically improves on cefepime and metronidazole, I recommend total 10 days, ending on 08/17/23. - Probiotic while on abx therapy - F/u blood cultures - contact ID for any question or concern As she has been on cipro and metronidazole for outpatient therapy on multiple occasions, I recommend to continue cefepime and metronidazole for possible MDRO. I am hesitant to provide more than 10 days of abx therapy given hx of C diff infection although she denies any recent history of C diff infection. History of Present Illness History of Present Illness This 53 y/o female ([place]) w/ hx of recurrent diverticulitis s/p partial s igmoid colectomy w/ anastomsosis (2008) and robotic lap partial colectomy (05/2023), IBS, C diff colitis (~10 years ago), fibromyalgia, and PTSD, presented to [facility] on 08/07/23 for L lower abd pain w/ n/v x 3 days w/ fever as well. The patient was emprically started on cefepime and metronidazole. No fever but leukocytosis. CT A/p showed asymmetric pericolonic fat stranding noted with regional diverticula in the proximal sigmoid. She feels not bad but not great either. No diarrhea. Abd pain has slightly improved. Denies f/c, n/v, cp, sob, coughing, or urinary symptoms now. Allergies Allergy/AdvReac Type Severity Reaction Status Date / Time ibuprofen Allergy Severe Shortness Verified 03/22/23 22:48 of breath and hives ketorolac Allergy Severe HIVES/DIFFICULTY Verified 03/22/23 22:48 BREATHING moxifloxacin Allergy Severe Shortness Verified 03/22/23 22:48 of breath/dizziness Penicillins Allergy Severe Anaphylaxis Verified 03/22/23 22:48 /HIVES Sulfa (Sulfonamide Allergy Severe Shortness Verified 03/22/23 22:48 Antibiotics) of breath and hives tramadol Allergy Severe HIVES/DIFFICULTY Verified 03/22/23 22:48 BREATHING aspirin Allergy Unknown Unknown Verified 03/22/23 22:48 dicyclomine [From Bentyl] AdvReac Intermediate Constipatio Verified 03/22/23 22:48 n haloperidol AdvReac Intermediate "KEEPS ME Verified 03/22/23 22:48 AWAKE, CAN'T SLEEP". hydrocodone AdvReac Intermediate Vomiting Verified 03/22/23 22:49 prochlorperazine AdvReac Intermediate MOTOR Verified 03/22/23 22:49 RESTLESSNESS Home Medications Medication Instructions Recorded Confirmed Type albuterol sulfate 90 mcg/actuation 2 inh inhalation Q4H PRN Shortness 08/07/23 08/07/23 History aerosol inhaler Of Breath Or Wheezing lisinopril 5 mg tablet 5 mg PO DAILY 08/07/23 08/07/23 History venlafaxine 150 mg 150 mg PO DAILY 08/07/23 08/07/23 History capsule,extended release 24 hr Patient History Medical History (Updated 08/07/23 @ 11:29 by Mindy Jessica DO) Asthma Depression Facial pain DWAYNE (generalized anxiety disorder) Gastroparesis Generalized pruritus GERD (gastroesophageal reflux disease) History of Clostridium difficile colitis HLD (hyperlipidemia) HTN (hypertension) IBS (irritable bowel syndrome) Migraine Osteomyelitis Pancreatitis Squamous cell carcinoma of left shoulder Suicide attempt by drug ingestion On 04/21/16 10:30 Helene Aguilar Rene wrote "03/22/2016" TIA (transient ischemic attack) Surgical History H/O colonoscopy H/O esophagogastroduodenoscopy H/O tubal ligation H/O unilateral oophorectomy History of colectomy due to diverticulitis 2008, Dr. 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 Beliefs That Will Affect Care: None Current Living Situation: Alone Other Information That Helps Us Care for You: No Feels Safe at Home: Yes Safety Concerns: Feels Safe At This Time Assistive Devices: None Review of Systems as HPI and all others negative Physical Exam Gen: no acute distress Neuro: awake, alert, and oriented x3, coverssant Results & Data Vital Signs (Past 12 Hours) Vital Signs Temp Pulse Resp BP Pulse Ox O2 Del Method 08/08/23 15:15 36.8 C 87 18 137/81 93 Room Air 08/08/23 09:45 Room Air 08/08/23 07:07 36.8 C 94 H 18 129/85 95 Room Air Laboratory Results WBC 13.85K -> 5.96K H 12.1 Plt 288K Cr 0.83 LFT WNL UA (08/07/23): trace LE Blood cx (08/07): NGTD Diagnostic Findings CT A/P (08/07/23):Asymmetric pericolonic fat stranding noted with regional diverticula in the proximal sigmoid. Findings are most consistent with recurrent sigmoid diverticulitis. This finding is in a similar location to the previous examination but is less prominent. No abscess or perforation. No bowel obstruction Medications Administered Cefepime and metronidazole
[2023-08-09] MEDS: CEFEPIME 2,000 MG in SYRINGE 0 ML IV SCH ×3 (05:37→21:38)
[2023-08-09] MEDS: metroNIDAZOLE 500 MG/100 ML BAG IV SCH (08:13)
[2023-08-09] MEDS: D5W AND NSS 1,000 ML IV SCH (08:13)
[2023-08-09 09:08] LABS: Basophils # (auto) 0.07 K/uL (0.00-0.20); Eosinophils # (auto) 0.36 K/uL (0.00-0.50); Eosinophils % (auto) 5.4 %; Hematocrit (blood only) 39.2 % (37.0-47.0); Hemoglobin 12.9 g/dl (12.0-16.0); Immature Granulocytes # (auto) 0.01 K/uL (0.01-0.20); Immature Granulocytes % (auto) 0.1 %; Lymphocytes # (auto) 2.58 K/uL (1.20-3.40); Lymphocytes % (auto) 38.5 %; Mean Corpuscular Hemoglobin 29.3 pg (25.0-34.0); Mean Corpuscular Hgb Conc 32.9 g/dL (32.0-36.0); Mean Corpuscular Volume 89.1 fL (80.0-100.0); Mean Platelet Volume 9.4 fL (9.4-12.4); Monocytes # (auto) 0.51 K/uL (0.11-0.59); Monocytes % (auto) 7.6 %; Neutrophils # (auto) 3.17 K/uL (1.40-6.50); Neutrophils % (auto) 47.4 %; Platelet Count 293 K/uL (130-400); RDW Standard Deviation 42.9 fL (36.4-46.3)
[2023-08-09 09:20] LABS: Albumin Globulin Ratio 1.3 (0.9-2); Albumin Level 3.9 gm/dl (3.4-5.0); BUN Creatinine Ratio 9.9 (10-20); Bilirubin,Total 0.3 mg/dl (0.2-1.0); Calcium 8.9 mg/dl (8.6-10.3); Creatinine Clr Calc Pharmacy 107.9 ml/min; Est GFR (African American) 114.3 ml/min; Est GFR (Non-African American) 98.6 ml/min; Globulin 3.1 gm/dl (2.5-4.0)
[2023-08-09] MEDS: ENOXAPARIN INJ 40 MG/0.4 ML SYR SQ SCH (09:44)
[2023-08-09] MEDS: lisinopril 5 MG TAB PO SCH (09:45)
[2023-08-09] MEDS: VENLAFAXINE HCL XR 150 MG CAPXR PO SCH (09:45)
[2023-08-09] MEDS: ADVANCED PROBIOTIC 1250 MG CAPSULE PO SCH (09:45)
--- NOTE | 2023-08-09 11:52 | Hospitalist Progress Note ---
Date of Service August 09, 2023 Assessment & Plan (1) Acute diverticulitis: (2) Tobacco use disorder: (3) Mood disorder: (4) HTN (hypertension): (5) Morbid obesity: Plan 53-year-old female with past med history significant for hyperlipidemia, allergic rhinitis, irritable bowel syndrome, recurrent diverticulitis, history of c diff colitis, fibromyalgia, migraine, PTSD, generalized anxiety disorder, history of tobacco use, depression, presents with abdominal pain and found to have recurrent diverticulitis. Acute diverticulitis Recurrent diverticulitis recurrent diverticulitis with partial sigmoid colectomy with anastomosis in 2008, recent robotic laparoscopic partial colectomy of splenic flexure in May 2023 at [facility] Recently was admitted on July 22 and was discharged on July 28 with recurrent diverticulitis comes again with same diverticulitis Cont IV cefepime and Flagyl, will convert flagyl to oral for a total of 10 days, ended on 08/17/23. will advance diet to clears as pain is mostly resolving, d/c IVF, pain meds as needed and she has not needed them since yesterday Orders placed for IV antibiotics and flagyl converted to PO. CM involved and scripts provided US guided IV order placed Appreciate general surgery recs who will follow peripherally continue conservative management, no indication for surgical intervention blood cultures negative Mood disorder on venlafaxine, chronic, stable. HTN-chronic, elevated this a.m. but has been normal. Will monitor. Cont lisinopril per home regimen. 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 DVT prophylaxis: Lovenox Full Code Dispo-continue to remain hospitalized, advance diet to clears, will go slow, recommending 10 total days of antibiotics, scripts written, will get US guided IV in place, once tolerating diet will be able to d/c but anticipate that may be another day or 2. Pt was seen and examined in collaboration with Dr. Deluca, please see addendum Admission and Anticipated Discharge Date Admission Date: August 07, 2023 Supervising Physician Co-Signing Physician Notes I have seen and discussed the case with the collaborating [facility]. I agree with the above H&P. I have reviewed and confirmed the patients medical history, the findings on physical examination, and the patients diagnosis and treatment plan with Kishor IVEY and agree with the information documented. Plan as documented above Subjective 53 yo F with h/o recurrent diveticulitis s/p two partial colectomies in past, the latest was a robotic-assisted laparoscopic splenic flexure resection with primary stapled anastomosis at [facility] in [place] on 06/01/2023. She was hospitalized 07/22-07/28 for recurrent diverticulitis in the descending colon without evidence of perforation or abscess. She was treated with IV abx, bowel rest and IV fluids. She was sent home and reported not feeling fully recovered despite completing her oral abx last Tu (one week ago). Her pain has improved significantly over last 24 hrs. She has no more nausea. She denies f/c/s, chest pain, sob or dizziness. She is requesting a shower. Review of Systems Review of Systems: All systems reviewed & are unremarkable except as noted in HPI & below Physical Exam Physical Exam: Gen: WD/WN, NAD, A&O x3 HEENT: Normocephalic, atraumatic, conjunctivae moist, sclerae anicteric, mucous membranes moist. Lung: Clear to Auscultation bilaterally, no wheezes/rales/rhonchi Heart: Regular rate, regular rhythm, no murmurs, rubs, or gallops Abdomen: Soft, NT, no rebound, guarding or tenderness, ND +BS x 4 Extremities: No edema Skin: Warm, no rash, negative turgor. Results & Data Results & Data Vital Signs (Past 12 Hours) Vital Signs Temp Pulse Resp BP Pulse Ox O2 Del Method 08/09/23 08:00 Room Air 08/09/23 07:44 37.1 C 91 H 16 189/96 H 94 Room Air Medications Administered Current Inpatient Medications Acetaminophen (Acetaminophen 325 Mg Tab) 650 mg PO Q4H PRN PRN Reason: pain/fever Stop: 09/06/23 07:37 Albuterol (Albuterol Hfa 8 Gm Inhaler) 2 puffs INH Q4H PRN PRN Reason: Shortness Of Breath Or Wheezing Stop: 09/06/23 07:37 Enoxaparin Sodium (Enoxaparin Inj 40 Mg/0.4 Ml Syr) 40 mg SQ Q24H NIRAJ Stop: 09/06/23 07:37 Last Admin: 08/09/23 09:44 Dose: Not Given Hydromorphone HCl (Hydromorphone Inj 0.5 Mg/0.5 Ml Syr) 0.5 mg IV Q3H PRN PRN Reason: Pain Stop: 08/21/23 07:37 Last Admin: 08/08/23 15:53 Dose: 0.5 mg Metronidazole (Flagyl) 500 mg in 100 mls @ 100 mls/hr IV Q8H NIRAJ; Protocol Stop: 08/17/23 07:59 Last Infusion: 08/09/23 09:13 Dose: Infused Cefepime HCl 2,000 mg/ Syringe 20 mls @ 5 mls/min IV Q8 NIRAJ; Protocol Stop: 08/18/23 13:59 Last Admin: 08/09/23 05:37 Dose: 5 mls/min Lactobacillus Acidophilus (Advanced Probiotic 1250 Mg Capsule) 2 cap PO DAILY [facility] Stop: 09/06/23 08:59 Last Admin: 08/09/23 09:45 Dose: 2 cap Lisinopril (Lisinopril 5 Mg Tab) 5 mg PO DAILY [facility] Stop: 09/06/23 08:59 Last Admin: 08/09/23 09:45 Dose: 5 mg Ondansetron HCl (Ondansetron Inj 2 Mg/Ml 2 Ml Vial) 4 mg IV Q6H PRN PRN Reason: Nausea Stop: 09/06/23 07:37 Last Admin: 08/08/23 04:47 Dose: 4 mg Oxycodone HCl (Oxycodone Hcl Ir 5 Mg Tab (Immediate Release)) 5 mg PO Q6H PRN PRN Reason: Severe Pain (Scale 7, 8, 9,10) Stop: 08/21/23 11:07 Last Admin: 08/08/23 10:42 Dose: 5 mg Venlafaxine HCl (Venlafaxine Hcl Xr 150 Mg Capxr) 150 mg PO DAILY [facility] Stop: 09/06/23 08:59 Last Admin: 08/09/23 09:45 Dose: 150 mg
[2023-08-09] MEDS: oxyCODONE HCL IR 5 MG TAB (IMMEDIATE RELEASE) PO PRN (13:28)
[2023-08-09] MEDS: metroNIDAZOLE 500 MG TAB PO SCH ×2 (13:28→21:39)
[2023-08-09] MEDS ORDERED: metroNIDAZOLE 500 MG TAB PO SCH (14:00)
[2023-08-09] MEDS: HYDROmorphone INJ 0.5 MG/0.5 ML SYR IV PRN ×3 (14:28→20:36)
[2023-08-09] MEDS: ONDANSETRON INJ 2 MG/ML 2 ML VIAL IV PRN (14:28)
[2023-08-10] MEDS: HYDROmorphone INJ 0.5 MG/0.5 ML SYR IV PRN ×4 (01:05→21:32)
[2023-08-10] MEDS: ONDANSETRON INJ 2 MG/ML 2 ML VIAL IV PRN ×3 (01:05→18:04)
[2023-08-10] MEDS: metroNIDAZOLE 500 MG TAB PO SCH ×3 (05:33→21:28)
[2023-08-10] MEDS: CEFEPIME 2,000 MG in SYRINGE 0 ML IV SCH ×3 (05:34→21:29)
[2023-08-10 08:32] LABS: Basophils # (auto) 0.05 K/uL (0.00-0.20); Basophils % (auto) 0.7 %; Eosinophils # (auto) 0.45 K/uL (0.00-0.50); Hematocrit (blood only) 42.3 % (37.0-47.0); Hemoglobin 13.6 g/dl (12.0-16.0); Immature Granulocytes # (auto) 0.02 K/uL (0.01-0.20); Immature Granulocytes % (auto) 0.3 %; Lymphocytes # (auto) 2.78 K/uL (1.20-3.40); Mean Corpuscular Hemoglobin 29.4 pg (25.0-34.0); Mean Corpuscular Hgb Conc 32.2 g/dL (32.0-36.0); Mean Corpuscular Volume 91.4 fL (80.0-100.0); Mean Platelet Volume 9.2 fL (9.4-12.4); Monocytes # (auto) 0.64 K/uL (0.11-0.59); Monocytes % (auto) 8.5 %; Neutrophils # (auto) 3.58 K/uL (1.40-6.50); Neutrophils % (auto) 47.5 %; Platelet Count 321 K/uL (130-400); RDW Coefficient of Variation 13.1 % (11.5-14.5); Red Blood Count 4.63 M/uL (4.20-5.40); White Blood Count 7.52 K/ul (4.8-10.8)
[2023-08-10 08:43] LABS: Albumin Globulin Ratio 1.3 (0.9-2); Albumin Level 4.1 gm/dl (3.4-5.0); BUN Creatinine Ratio 8.2 (10-20); Bilirubin,Total 0.4 mg/dl (0.2-1.0); Calcium 9.4 mg/dl (8.6-10.3); Creatinine Clr Calc Pharmacy 90.1 ml/min; Est GFR (Non-African American) 79.3 ml/min; Globulin 3.2 gm/dl (2.5-4.0); Potassium 4.3 mmol/L (3.5-5.1); Total Protein 7.3 gm/dl (6.0-8.3)
[2023-08-10] MEDS: ENOXAPARIN INJ 40 MG/0.4 ML SYR SQ SCH (09:50)
[2023-08-10] MEDS: oxyCODONE HCL IR 5 MG TAB (IMMEDIATE RELEASE) PO PRN (10:13)
[2023-08-10] MEDS: ADVANCED PROBIOTIC 1250 MG CAPSULE PO SCH (10:14)
[2023-08-10] MEDS: VENLAFAXINE HCL XR 150 MG CAPXR PO SCH (10:15)
[2023-08-10] MEDS: lisinopril 5 MG TAB PO SCH (10:15)
--- NOTE | 2023-08-10 16:02 | Hospitalist Progress Note ---
Date of Service August 10, 2023 Assessment & Plan (1) Acute diverticulitis: (2) Tobacco use disorder: (3) Mood disorder: (4) HTN (hypertension): (5) Morbid obesity: Plan 53-year-old female with past med history significant for hyperlipidemia, allergic rhinitis, irritable bowel syndrome, recurrent diverticulitis, history of c diff colitis, fibromyalgia, migraine, PTSD, generalized anxiety disorder, history of tobacco use, depression, presents with abdominal pain and found to have recurrent diverticulitis. Acute diverticulitis Recurrent diverticulitis recurrent diverticulitis with partial sigmoid colectomy with anastomosis in 2008, recent robotic laparoscopic partial colectomy of splenic flexure in May 2023 at [facility] Recently was admitted on July 22 and was discharged on July 28 with recurrent diverticulitis comes again with same diverticulitis Cont IV cefepime and Flagyl, converted flagyl to oral for a total of 10 days, ended on 08/17/23. Adv diet to FLD, with plan for soft/low fiber diet later in the evening. US guided IV order placed, eval in AM for possible DC chris. Appreciate general surgery recs who will follow peripherally continue conservative management, no indication for surgical intervention per Sx. blood cultures negative so far. Mood disorder on venlafaxine, chronic, stable. HTN-chronic, elevated this a.m. but has been normal. Will monitor. Cont lisinop ril per home regimen. 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 DVT prophylaxis: Lovenox Full Code Dispo-continue to remain hospitalized, advance diet to FLD, will go slow, recommending 10 total days of antibiotics, scripts written, will get US guided IV in place, once tolerating diet will be able to d/c, anticipate likely chris. Admission and Anticipated Discharge Date Admission Date: August 07, 2023 Subjective Patient seen and examined at bedside. Patient was sitting up in bed, working on her laptop, on room air, resting comfortably, not in any acute distress. Patient reports moving bowels yesterday, has been tolerating clear liquid diet, advance to full liquid diet. If tolerated, advance to soft diet/low fiber diet by evening. Patient reports improving belly pain. Denies any other ROS. Physical Exam Physical Exam: Gen: WD/WN, NAD, A&O x3 HEENT: Normocephalic, atraumatic, conjunctivae moist, sclerae anicteric, mucous membranes moist. Lung: Clear to Auscultation bilaterally, no wheezes/rales/rhonchi Heart: Regular rate, regular rhythm, no murmurs, rubs, or gallops Abdomen: Soft, NT, no rebound, guarding or tenderness, ND +BS x 4 Extremities: No edema Skin: Warm, no rash, negative turgor. Results & Data Results & Data Vital Signs (Past 12 Hours) Vital Signs Temp Pulse Pulse Resp BP Pulse Ox O2 Del Method 08/10/23 14:28 36.6 C 79 16 138/85 93 Room Air 08/10/23 07:28 36.7 C 83 16 119/76 90 Room Air 08/10/23 07:21 Room Air
[2023-08-11] MEDS: CEFEPIME 2,000 MG in SYRINGE 0 ML IV SCH ×2 (05:33→14:11)
[2023-08-11] MEDS: metroNIDAZOLE 500 MG TAB PO SCH ×2 (05:33→14:11)
[2023-08-11] MEDS: ENOXAPARIN INJ 40 MG/0.4 ML SYR SQ SCH (08:27)
[2023-08-11] MEDS: lisinopril 5 MG TAB PO SCH (08:27)
[2023-08-11] MEDS: VENLAFAXINE HCL XR 150 MG CAPXR PO SCH (08:28)
[2023-08-11] MEDS: ADVANCED PROBIOTIC 1250 MG CAPSULE PO SCH (08:28)
--- NOTE | 2023-08-11 14:37 | Discharge Summary ---
Date of Service August 11, 2023 Admission HPI Per Admitting Provider 53-year-old female with past med history significant for hyperlipidemia, allergic rhinitis, irritable bowel syndrome, recurrent diverticulitis, history of c diff colitis, fibromyalgia, migraine, PTSD, generalized anxiety disorder, history of tobacco use, depression, presents with abdominal pain and found to have recurrent diverticulitis. Patient states today again developed left lower quadrant abdominal pain as well as nausea /vomiting and fever. Had diarrhea today but no blood in the stools, normal bladder movements. No chest pain or shortness of breath. No cough. Has some headache. Has some dizziness. No runny nose. No sore throat. Hemodynamic stable. Patient was recently in the hospital for diverticulitis treated with antibiotics. Past medical history. As mentioned above Past surgical history.. Colonoscopy. Left oophorectomy, cholecystectomy hysterectomy. Appendectomy. Robotic laparoscopic partial colectomy with coloproctostomy, laparoscopic right ovary and fallopian tube removed. Laparoscopic sigmoid colectomy with primary anastomosis. Social history. Smoker smoked half pack a day for 5 years. No alcohol use. No drug use. Family history. Daughter has arthritis. Father has diabetes. Brother has heart disorder. Mother has heart disorder. Admission Exam Per Admitting Provider General- adult Head- atraumatic Eyes- PERRL. ENT- oropharynx clear Neck- supple, no JVD. Lungs- clear to auscultation no wheezing or crackles. Heart- regular rhythm; no murmur, no gallop. Abdomen- normal bowel sounds, soft, tenderness in LLQ. No distension. Extremities- no pretibial edema, no erythema seen. Neuro- alert, oriented x 3; PERRL, no facial palsy; no dysarthria; non focal. Skin- warm & dry Principal Diagnosis Acute diverticulitis, recurrent Discharge Exam Gen: WD/WN, NAD, A&O x3 HEENT: Normocephalic, atraumatic, conjunctivae moist, sclerae anicteric, mucous membranes moist. Lung: Clear to Auscultation bilaterally, no wheezes/rales/rhonchi Heart: Regular rate, regular rhythm, no murmurs, rubs, or gallops Abdomen: Soft, NT, no rebound, guarding or tenderness, ND +BS x 4 Extremities: No edema Skin: Warm, no rash, negative turgor. Discharge Data Allergies Allergy/AdvReac Type Severity Reaction Status Date / Time ibuprofen Allergy Severe Shortness Verified 03/22/23 22:48 of breath and hives ketorolac Allergy Severe HIVES/DIFFICULTY Verified 03/22/23 22:48 BREATHING moxifloxacin Allergy Severe Shortness Verified 03/22/23 22:48 of breath/dizziness Penicillins Allergy Severe Anaphylaxis Verified 03/22/23 22:48 /HIVES Sulfa (Sulfonamide Allergy Severe Shortness Verified 03/22/23 22:48 Antibiotics) of breath and hives tramadol Allergy Severe HIVES/DIFFICULTY Verified 03/22/23 22:48 BREATHING aspirin Allergy Unknown Unknown Verified 03/22/23 22:48 dicyclomine [From Bentyl] AdvReac Intermediate Constipatio Verified 03/22/23 22:48 n haloperidol AdvReac Intermediate "KEEPS ME Verified 03/22/23 22:48 AWAKE, CAN'T SLEEP". hydrocodone AdvReac Intermediate Vomiting Verified 03/22/23 22:49 prochlorperazine AdvReac Intermediate MOTOR Verified 03/22/23 22:49 RESTLESSNESS Consultations 08/07/23 03:37 ED Decision to Admit Stat 08/07/23 08:00 Consult General Surgery Routine 08/07/23 11:10 Consult Infectious Diseases Routine Ordered Studies 08/07/23 01:49 CT Abd and Pelvis [CT abd pelvis IV con only] Stat Hospital Course (1) Acute diverticulitis: (2) Tobacco use disorder: (3) Mood disorder: (4) HTN (hypertension): (5) Morbid obesity: Plan 53-year-old female with past med history significant for hyperlipidemia, allergic rhinitis, irritable bowel syndrome, recurrent diverticulitis, history of c diff colitis, fibromyalgia, migraine, PTSD, generalized anxiety disorder, history of tobacco use, depression, presents with abdominal pain and found to have recurrent diverticulitis. She was managed for the following: Acute diverticulitis Recurrent diverticulitis recurrent diverticulitis with partial sigmoid colectomy with anastomosis in 2008, [place] [facility] [place] was admitted on July 22 and was discharged on July 28 with recurrent diverticulitis comes again with same diverticulitis Cont IV cefepime and Flagyl, converted flagyl to oral for a total of 10 days, ended on 08/17/23. Patient tolerating advancement of diet to soft/low fiber with no belly pain. R eports significant improvement in her belly pain today and states she would like to go home today. Coordinated with pillowcase sewer, iv antibiotics will be delivered today at home. Patient getting teaching sessions from nurses and also will get teaching sessions from home health. US guided IV line in place. Patient to follow-up with general surgery in 1 to 2 months time. Patient to follow-up with PCP in a week time. Patient to continue with soft/low fiber diet for neck 7 to 10 days, patient has been made aware. Mood disorder on venlafaxine, chronic, stable. HTN-chronic, elevated this a.m. but has been normal. Will monitor. Cont lisinopril per home regimen. 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 DVT prophylaxis: Lovenox Full Code Patient is being discharged home with home health with following instruction at the point of discharge: Follow-up with your primary care physician within a week time and likely you will need labs CBC/CMP/magnesium/phosphorus. Maintain soft/low fiber diet for next 7 to 10 days before progressing back to your regular consistency diet. You will be discharged on IV and oral antibiotic to complete the course for acute diverticulitis. You will need repeat colonoscopy in around 8 weeks time, follow-up with your general surgery at 1 and half months amrik. Please make sure that you are able to get your medications today by calling your pharmacy before you leave the hospital so that your treatment continuity is not broken. Home Health Attestation I certify that this patient is under my care and that I, or a physicians ophthalmic medical assistant working with me, had a face to-face encounter that meets the home health [id number] encounter requirements with this patient. The encounter with the patient was in whole, or in part, for the following medical condition, which is the primary reason for home health care (list medical condition): I certify that, based on my findings, the following services are medically necessary home health services: My clinical findings support the need for the above services because: Further, I certify that my clinical findings support that this patient is homebound (i.e. absences from home require considerable and taxing effort and are for medical reasons or druze services or infrequently or of short d uration when for other reasons) because: Certification for Home Health Services: Based on the above findings, I certify that this patient is confined to the home and needs intermittent custodial care, physical therapy and/or speech therapy or continues to need occupational therapy. The patient is under my care, and I have initiated the establishment of the plan of care. This patient will be followed by a physician who will periodically review the plan of care. Total Time Total Time Spent Total Time Spent (In Minutes): 45 Discharge Plan Discharge Items Patient Disposition: Home - Self-Care Reason For Visit: RECURRENT DIVERTICULITIS Discharge Diagnosis: Acute diverticulitis, recurrent Condition on Discharge: Good Activity: Resume your previous activity Non-emergency contact: Primary Care Provider Call non-emergency contact if: you have any medication questions, your symptoms worsen, your pain is worsening and your temperature is above 101 Follow-up/Referrals: Holland Naik MD [Primary Care Provider] - (Date & Time 08/18/2023 11:00 AM Provider Kristina Barksdale MD Department Family Medicine [facility] ) Yeny Kelly MD [Outside Practitioners] - (Date & Time 09/13/2023 3:45 PM Provider [facility] Use the [facility]ayy Entrance, take the "C" elevator to the 6th floor. ) Diet: Low Fiber Diet Texture: Dental soft (bite-sized) Addtl Attending Provider Instructions: Follow-up with your primary care physician within a week time and likely you will need labs CBC/CMP/magnesium/phosphorus. Maintain soft/low fiber diet for next 7 to 10 days before progressing back to your regular consistency diet. You will be discharged on IV and oral antibiotic to complete the course for acute diverticulitis. You will need repeat colonoscopy in around 8 weeks time, follow-up with your general surgery at 1 and half months amrik. Please make sure that you are able to get your medications today by calling your pharmacy before you leave the hospital so that your treatment continuity is not broken. Pending Studies at Discharge: No Stand-Alone Forms: My [facility] [employer], Pain - Opioid Pain Management, Work/School Release, Smoking Cessation Medications and DC Order Prescriptions: New metronidazole 500 mg Tablet 500 mg PO Q8 7 Days Qty: 21 0RF oxycodone 5 mg Tablet 5 mg PO Q6H PRN (Reason: severe pain (scale score 7-10)) 3 Days Qty: 12 0RF Advanced Probiotic 625 mg (10 billion cell) Capsule 2 cap PO DAILY 14 Days Qty: 28 0RF ondansetron 4 mg tablet,disintegrating 4 mg PO BID PRN (Reason: nausea and vomiting) Qty: 20 0RF cefepime 2 gram recon soln 2 g IV Q8H 7 Days Qty: 21 0RF Continued venlafaxine 150 mg capsule,extended release 24hr 150 mg PO DAILY lisinopril 5 mg tablet 5 mg PO DAILY albuterol sulfate 90 mcg/actuation HFA aerosol inhaler 2 inh INHALATION Q4H PRN (Reason: Shortness Of Breath Or Wheezing) Discharge Orders: Discharge Order (Routine); Ordered 08/11/23 Ordered By: Nicci Baker/Other Patient Handouts: Giving IV Antibiotics Dc Admission Data Admit Date/Time: 08/07/23 04:45 Attending Provider: Nicci Deluca Admit Provider: Brennon Wei Primary Care Provider: Holland Naik Other Providers: Brennon Wei ; Chris Coats ; Amrik Guerra ; Twila Monterroso ; Polo Strange ; Jelani Ross ; Anel Rinaldi ; Marivel Avila ; Matthew Meier Jr ; Juventino Claire ; Flo Bhardwaj ; Mandy Suarez ; Tristin Block ; Josiane Ward ; Guy Cordova I. ; Jonas Waldrop II ; Krista Gonzales ; Amrik Romeo ; Matthew Blancas ; Isael Potter ; [facility],Home Healthcare ; [facility],Referral Center ; Agueda,Tereso
== END 2023-08-11 15:22 | disposition home health service (06) | DRG 392 ==
LOC: ED 23:11 → SUATTDRO 08-07 04:45 → EDINP 08-07 04:45 → INTOOBSV 08-07 04:45 → 3N 08-07 07:37

== ENCOUNTER 2023-10-01 13:38 | Observation (INO) ==
[2023-10-01 14:24] LABS: Basophils # (auto) 0.06 K/uL (0.00-0.20); Basophils % (auto) 0.6 %; Eosinophils # (auto) 0.38 K/uL (0.00-0.50); Eosinophils % (auto) 3.9 %; Hematocrit (blood only) 46.7 % (37.0-47.0); Hemoglobin 15.4 g/dl (12.0-16.0); Immature Granulocytes # (auto) 0.03 K/uL (0.01-0.20); Immature Granulocytes % (auto) 0.3 %; Lymphocytes # (auto) 3.77 K/uL (1.20-3.40); Lymphocytes % (auto) 38.5 %; Mean Corpuscular Hemoglobin 29.8 pg (25.0-34.0); Mean Corpuscular Volume 90.3 fL (80.0-100.0); Mean Platelet Volume 9.2 fL (9.4-12.4); Monocytes % (auto) 5.1 %; Neutrophils # (auto) 5.04 K/uL (1.40-6.50); Neutrophils % (auto) 51.6 %; Platelet Count 307 K/uL (130-400); RDW Coefficient of Variation 13.2 % (11.5-14.5); RDW Standard Deviation 44.1 fL (36.4-46.3); Red Blood Count 5.17 M/uL (4.20-5.40); White Blood Count 9.78 K/ul (4.8-10.8)
[2023-10-01 14:30] LABS: Albumin Globulin Ratio 1.5 (0.9-2); Albumin Level 4.8 gm/dl (3.4-5.0); BUN Creatinine Ratio 11.4 (10-20); Bilirubin,Total 0.4 mg/dl (0.2-1.0); Calcium 9.9 mg/dl (8.6-10.3); Creatinine Clr Calc Pharmacy 111.4 ml/min; Est GFR (African American) 116.3 ml/min; Est GFR (Non-African American) 100.3 ml/min; Globulin 3.3 gm/dl (2.5-4.0); Potassium 4.2 mmol/L (3.5-5.1); Total Protein 8.1 gm/dl (6.0-8.3)
[2023-10-01 14:35] LABS: Appearance Urine Clear (Clear); Bilirubin Urine Negative (Negative); Blood Urine Negative (Negative); Color Urine Yellow; Glucose Urine UA Negative (Negative); Ketones Urine Negative (Negative); Leukocyte Esterase Urine Negative (Negative); Nitrite Urine Negative (Negative); Protein Urine Negative (Negative); Specific Gravity Urine 1.005 (1.000-1.030); Urobilinogen Urine Negative (Negative)
[2023-10-01] MEDS ORDERED: OPTIRAY 320 500ml IV ONE (15:08)
[2023-10-01] MEDS ORDERED: HYDROmorphone INJ 1 MG/ML SYRINGE IV STA (15:19)
[2023-10-01] MEDS ORDERED: SODIUM CHLORIDE 0.9% 1,000 ML IV ONE (15:19)
--- NOTE | 2023-10-01 15:19 | Emergency Department Note ---
Impression & Plan Diverticulitis of sigmoid colon, Abdominal pain, Nausea ED Provider Note Provider: Noel Lozano MD DATE OF SERVICE: 10/01/2023 CHIEF COMPLAINT: Abdominal pain, nausea vomiting diarrhea, fever HISTORY OF PRESENT ILLNESS: Patient is a 53-year-old female past medical history including hypertension, diverticulitis status post surgery, obesity, TIA, GERD, IBS, status post hysterectomy, cholecystectomy, and appendectomy presenting here today complaining of continued worsening abdominal pain nausea vomiting and diarrhea. Seen here by myself on Monday. Started a course of Augmentin after she declined staying for observation here history of complicated diverticulitis in the past. Imaging on Monday did not show evidence of abscess or perforation. Was recently on a course of outpatient Cipro and Flagyl but not totally resolved symptoms. Worsened lower abdominal pain with sometimes formed sometimes loose stools but no blood. Not sure she Much the antibiotic down yesterday. No falls or trauma. Worse and she feels quite tense. PAST MEDICAL HISTORY: As noted above MEDICATIONS: Reviewed home medications SOCIAL HISTORY: Denies alcohol use PHYSICAL EXAM: GENERAL: alert and oriented on stretcher appears uncomfortable Head: normocephalic and atraumatic EYES: No injection, discharge or icterus. NECK: Trachea midline. ENT: Mucous membranes pink and moist. LUNGS: Airway patent. No retractions. Breath sounds clear HEART: Regular rate and rhythm. No chest wall tenderness ABDOMEN: Soft however with guarding and tenderness in the mid to left lower abdomen. SKIN: Acyanotic, warm, dry, without rashes EXTREMITIES: Without swelling, tenderness or deformity NEUROLOGICAL: No focal deficits. No aphasia. No facial droop or slurred speech. Ambulatory. Patient's laboratory studies and imaging reviewed. Differential includes Appendicitis, ovarian cyst, ovarian torsion, ectopic , TOA, PID, infections, diverticulitis, UTI, obstruction, mesenteric ischemia, aortic pathology, inflammatory bowel disease, renal colic, PUD, pancreatitis, biliary pathology, hernia, volvulus, constipation, as well as other pathologies. IMPRESSION/MEDICAL DECISION MAKING: Patient follows [facility] colorectal surgery. Reports increased lower abdominal discomfort. Blood work is reassuring although white blood cell counts went from 8-9 no evidence of significant lecture abnormality or acute hepatitis or pancreatitis. Renal function appears normal. Note is UTI. Patient's answer she is Much of the Augmentin. Given Some IV Fluid, IV Dilaudid, and IV Zofran which have helped her symptoms in the past. CT scan of the abdomen pelvis completed to evaluate for changes given her worsened pain and exclude perforation or abscess formation. CT report reviewed from radiology stable with mild persistent acute sigmoid diverticulitis without pneumoperitoneum or abscess. No obstruction. Discussed with the patient and will try IV antibiotics. Reviewed last infectious disease note in the chart recommended course cefepime and Flagyl. This was ordered. Given her failure of outpatient treatment discussed with hospitalist team for further care here. DIAGNOSIS: Acute sigmoid diverticulitis, abdominal pain, nausea and vomiting DISPOSITION: Hospitalist will evaluate Patient was agreeable with this plan. Past Med/Surg History Medical History (Updated 10/01/23 @ 16:09 by Noel Lozano M.D.) HTN (hypertension) Pancreatitis Generalized pruritus TIA (transient ischemic attack) Facial pain Osteomyelitis GERD (gastroesophageal reflux disease) Squamous cell carcinoma of left shoulder History of Clostridium difficile colitis Suicide attempt by drug ingestion On 04/21/16 10:30 Helene Rene wrote "03/22/2016" IBS (irritable bowel syndrome) Migraine Gastroparesis HLD (hyperlipidemia) Depression DWAYNE (generalized anxiety disorder) Asthma Surgical History (Updated 08/28/23 @ 00:10 by Adryan Pulliam) History of colectomy due to diverticulitis 2008, Dr. Mancuso 2008 H/O unilateral oophorectomy H/O colonoscopy H/O esophagogastroduodenoscopy Hx of appendectomy S/P cholecystectomy S/P MARLON (total abdominal hysterectomy) H/O tubal ligation Hx of tonsillectomy Family History Father Type 2 diabetes mellitus Mother Myocardial infarction Social History Smoking Status: Current every day smoker Tobacco Type: Cigarettes Cigarettes Per Day: 10; Second Hand Exposure: No; Do You Dip or Chew Tobacco: No; Hx Alcohol Use: No Hx Substance Use: No Preferred Language: Icelandic Communication Ability: Effective Bottler Required: No Beliefs That Will Affect Care: None Current Living Situation: Alone Feels Safe at Home: Yes Assistive Devices: None Allergies Allergies Allergy/AdvReac Type Severity Reaction Status Date / Time ibuprofen Allergy Severe Shortness Verified 03/22/23 22:48 of breath and hives ketorolac Allergy Severe HIVES/DIFFICULTY Verified 03/22/23 22:48 BREATHING moxifloxacin Allergy Severe Shortness Verified 03/22/23 22:48 of breath/dizziness Penicillins Allergy Severe Anaphylaxis Verified 10/01/23 15:33 /HIVES Sulfa (Sulfonamide Allergy Severe Shortness Verified 03/22/23 22:48 Antibiotics) of breath and hives tramadol Allergy Severe HIVES/DIFFICULTY Verified 03/22/23 22:48 BREATHING aspirin Allergy Unknown Unknown Verified 03/22/23 22:48 dicyclomine [From Bentyl] AdvReac Intermediate Constipatio Verified 03/22/23 22:48 n haloperidol AdvReac Intermediate "KEEPS ME Verified 03/22/23 22:48 AWAKE, CAN'T SLEEP". hydrocodone AdvReac Intermediate Vomiting Verified 03/22/23 22:49 prochlorperazine AdvReac Intermediate MOTOR Verified 03/22/23 22:49 RESTLESSNESS Home Meds Home Medications Medication Instructions Recorded Confirmed albuterol sulfate 90 mcg/actuation 2 inh inhalation Q4H PRN Shortness 08/07/23 10/01/23 aerosol inhaler Of Breath Or Wheezing lisinopril 5 mg tablet 5 mg PO DAILY 08/07/23 10/01/23 venlafaxine 150 mg 300 mg PO DAILY 08/07/23 10/01/23 capsule,extended release 24 hr Previous Rx's Medication Instructions Recorded ondansetron 4 mg disintegrating 4 mg PO BID PRN nausea and 08/11/23 tablet vomiting #20 tabs amoxicillin 875 mg-potassium 1 tab PO BID #20 tabs 09/29/23 clavulanate 125 mg tablet Results & Data (ED) Vital Signs Vital Signs - 24 hr 10/01/23 13:50 Temperature 36.2 C L Temperature Source Temporal Artery Scan Pulse Rate 105 H Respiratory Rate 18 Respiratory Effort / Characteristics Non-Labored Respiratory Depth Normal Respiratory Pattern Regular Blood Pressure 164/119 H Blood Pressure Mean 134 Pulse Oximetry 96 Oxygen Delivery Method Room Air Sepsis Recent Fever Within 48 Hours No Sepsis New/Unexplained Change in Mental Status N/A Sepsis Action Taken by Nursing No Action Required Laboratory Data 10/01/23 14:00 10/01/23 14:00 Lab Results 10/01/23 Range/Units 14:00 WBC 9.78 (4.8-10.8) K/ul RBC 5.17 (4.20-5.40) M/uL Hgb 15.4 (12.0-16.0) g/dl Hct 46.7 (37.0-47.0) % MCV 90.3 (80.0-100.0) fL MCH 29.8 (25.0-34.0) pg MCHC 33.0 (32.0-36.0) g/dL RDW Std Deviation 44.1 (36.4-46.3) fL RDW Coeff of Liat 13.2 (11.5-14.5) % Plt Count 307 (130-400) K/uL MPV 9.2 L (9.4-12.4) fL Immature Gran % (Auto) 0.3 % Neut % (Auto) 51.6 % Lymph % (Auto) 38.5 % [place] % (Auto) 5.1 % Eos % (Auto) 3.9 % Baso % (Auto) 0.6 % Neut # (Auto) 5.04 (1.40-6.50) K/uL Lymph # (Auto) 3.77 H (1.20-3.40) K/uL [place] # (Auto) 0.50 (0.11-0.59) K/uL Eos # (Auto) 0.38 (0.00-0.50) K/uL Baso # (Auto) 0.06 (0.00-0.20) K/uL Immature Gran # (Auto) 0.03 (0.01-0.20) K/uL Sodium 137 (136-145) mmol/L Potassium 4.2 (3.5-5.1) mmol/L Chloride 103 (98-107) mmol/L Carbon Dioxide 26 (21-32) mmol/L Anion Gap 8 (3-11) BUN 8 (6-23) mg/dl Creatinine 0.70 (0.6-1.2) mg/dl Est Cr Clr Drug Dosing 111.4 ml/min Est GFR ( Amer) 116.3 ml/min Est GFR (Non-Af Amer) 100.3 ml/min BUN/Creatinine Ratio 11.4 (10-20) Glucose 98 (70-99(Fasting)) mg/dl Calcium 9.9 (8.6-10.3) mg/dl Total Bilirubin 0.4 (0.2-1.0) mg/dl AST 21 (13-39) U/L ALT 37 (7-52) U/L Alkaline Phosphatase 79 (34-104) U/L Total Protein 8.1 (6.0-8.3) gm/dl Albumin 4.8 (3.4-5.0) gm/dl Globulin 3.3 (2.5-4.0) gm/dl Albumin/Globulin Ratio 1.5 (0.9-2) Lipase 12 (11-82) U/L Urine Color Yellow Urine Appearance Clear (Clear) Urine pH 7.0 (4.5-7.5) Ur Specific [place] 1.005 (1.000-1.030) Urine Protein Negative (Negative) Urine Glucose (UA) Negative (Negative) Urine Ketones Negative (Negative) Urine Blood Negative (Negative) Urine Nitrite Negative (Negative) Urine Bilirubin Negative (Negative) Urine Urobilinogen Negative (Negative) Ur Leukocyte Esterase Negative (Negative) Administered Medications Sodium Chloride (Nss) 1,000 mls @ 999 mls/hr IV .Q1H1M ONE Stop: 10/01/23 16:19 Last Admin: 10/01/23 15:28 Dose: 999 mls/hr Documented By: ALETA Discontinued Medications Hydromorphone HCl (Hydromorphone Inj 1 Mg/Ml Syringe) 1 mg IV NOW STA Stop: 10/01/23 15:20 Last Admin: 10/01/23 15:27 Dose: 1 mg Documented By: ALETA Cefepime HCl (Maxipime) 2,000 mg in 20 mls @ 5 mls/min IV NOW STA; Protocol Stop: 10/01/23 15:35 Last Admin: 10/01/23 15:41 Dose: 5 mls/min Documented By: ALETA Ioversol (Optiray 320 500ml) 88 ml IV ONCE ONE Stop: 10/01/23 15:09 Last Admin: 10/01/23 15:09 Dose: 88 ml Documented By: VERONICA Ondansetron HCl (Ondansetron Inj 2 Mg/Ml 2 Ml Vial) 4 mg IV NOW STA Stop: 10/01/23 15:21 Last Admin: 10/01/23 15:27 Dose: 4 mg Documented By: ALETA Imaging Data Radiologist's Impression: Abdomen/Pelvis CT 10/01/23 14:[address] WITH IV CONTRAST CT DOSE: 1351.83 mGy.cm HISTORY: Acute generalized abdominal pain worsening pain, diverticulitis, n/v TECHNIQUE: Multiaxial CT images of the abdomen and pelvis were performed following the IV administration of 89 cc of Optiray, A dose lowering technique was utilized adhering to the principles of ALARA. COMPARISON STUDY: 09/29/2023 FINDINGS: The lung bases are generally clear with mild air trapping. No free air. Unremarkable spleen, pancreas and adrenal glands. Cholecystectomy. Hepatic steatosis. Indeterminate 9 mm nodule in the left hepatic lobe adjacent to the falciform ligament is unchanged. Patency of the hepatic and portal veins. 5 mm nonobstructing calculus of the inferior pole right kidney. There are 2 nonobstructing calculi of the inferior pole left kidney measuring up to 4 mm. No ureteral calculi or hydronephrosis. Hysterectomy. Unremarkable urinary bladder which is again noted to be tethered to the anterior abdominal wall. Atherosclerosis of the aorta. No lymphadenopathy. No bowel obstruction. Prior partial sigmoid colon resection with colorectal colonic anastomosis. There is mild wall thickening of the proximal sigmoid colon upstream to the anastomosis with adjacent trace pericolonic stranding, unchanged. No fluid collections. Additional anastomotic suture noted within the splenic flexure. Moderate fecal retention. Appendectomy. Unremarkable soft tissues. No acute fracture. IMPRESSION: 1. Stable exam from the study obtained two days earlier with mild persistent acute sigmoid diverticulitis. 2. No pneumoperitoneum or abscess. 3. No bowel obstruction. 4. Nonobstructing bilateral nephrolithiasis. 5. Additional findings as above. ACT 112: Negative or not required by law. The above report was generated using voice recognition software. It may contain grammatical, syntax or spelling errors. Electronically signed by: Socrates Meyers M.D. 10/01/2023 3:29 PM Discharge Plan Visit Data Chief Complaint: Abdominal Pain Stated Complaint: ABDOMINAL PAIN, N/V, DIVERTICULITIS ED Provider: Noel Lozano Discharge Problem: Diverticulitis of sigmoid colon, Abdominal pain, Nausea Patient Disposition: Being Evaluated by Hospitalist Forms Stand Alone Forms: [employer] Prescriptions Prescriptions: No Action venlafaxine 150 mg capsule,extended release 24hr 300 mg PO DAILY Rx Instructions: 2 caps po daily lisinopril 5 mg tablet 5 mg PO DAILY albuterol sulfate 90 mcg/actuation HFA aerosol inhaler 2 inh INHALATION Q4H PRN (Reason: Shortness Of Breath Or Wheezing) ondansetron 4 mg tablet,disintegrating 4 mg PO BID PRN (Reason: nausea and vomiting) Qty: 20 0RF amoxicillin-pot clavulanate 875-125 mg tablet 1 tab PO BID Qty: 20 0RF Rx Instructions: with food Referrals Referrals: Holland Naik MD [Primary Care Provider] -
[2023-10-01] MEDS ORDERED: ONDANSETRON INJ 2 MG/ML 2 ML VIAL IV STA (15:20)
--- NOTE | 2023-10-01 15:31 | CT Scan Report ---
ABDOMEN AND PELVIS CT WITH IV CONTRAST CT DOSE: 1351.83 mGy.cm HISTORY: Acute generalized abdominal pain worsening pain, diverticulitis, n/v TECHNIQUE: Multiaxial CT images of the abdomen and pelvis were performed following the IV administrat ion of 89 cc of Optiray, A dose lowering technique was utilized adhering to the principles of ALARA. COMPARISON STUDY: 09/29/2023 FINDINGS: The lung bases are generally clear with mild air trapping. No free air. Unremarkable spleen , pancreas and adrenal glands. Cholecystectomy. Hepatic steatosis. Indeterminate 9 mm nodule in the l eft hepatic lobe adjacent to the falciform ligament is unchanged. Patency of the hepatic and portal v eins. 5 mm nonobstructing calculus of the inferior pole right kidney. There are 2 nonobstructing calculi of the inferior pole left kidney measuring up to 4 mm. No ureteral calculi or hydronephrosis. Hysterect brenton. Unremarkable urinary bladder which is again noted to be tethered to the anterior abdominal wall. Atherosclerosis of the aorta. No lymphadenopathy. No bowel obstruction. Prior partial sigmoid colon resection with colorectal colonic anastomosis. There is mild wall thickening of the proximal sigmoid colon upstream to the anastomosis with adjacent trace pericolonic stranding, unchanged. No fluid zuleyka ections. Additional anastomotic suture noted within the splenic flexure. Moderate fecal retention. Ap pendectomy. Unremarkable soft tissues. No acute fracture. IMPRESSION: 1. Stable exam from the study obtained two days earlier with mild persistent acute sigmoid diverticul itis. 2. No pneumoperitoneum or abscess. 3. No bowel obstruction. 4. Nonobstructing bilateral nephrolithiasis. 5. Additional findings as above. ACT 112: Negative or not required by law. The above report was generated using voice recognition software. It may contain grammatical, syntax o r spelling errors. Electronically signed by: Socrates Meyers M.D. 10/01/2023 3:29 PM
[2023-10-01] MEDS ORDERED: metroNIDAZOLE 500 MG TAB PO STA (15:32)
[2023-10-01] MEDS ORDERED: CEFEPIME 2,000 MG/20 ML VIAL IV STA (15:32)
--- NOTE | 2023-10-01 16:21 | History & Physical Report ---
Date of Service October 01, 2023 Assessment & Plan (1) Nausea: (2) Abdominal pain: (3) Diverticulitis of sigmoid colon: (4) HTN (hypertension): Plan 53yoF with PMHx significant for recurrent diverticulitis s/p colon resection x2, history of c diff colitis, IBS, HLD, allergic rhinitis, fibromyalgia, migraine, PTSD, DWAYNE, history of tobacco use, depression admitted with recurrent diverticulitis. Diverticulitis, recurrent s/p Colonic resection Hx of c diff colitis Presenting with worsening abdominal pain Pt with Hx of diverticulitis, follows with Colorectal surgeon Dr Mireles Finished course of flagyl and cipro on 09/27, started with symptoms again that day Presented to ED on 09/29, CT noting mild diverticulitis, wanted to try Augmentin States abdominal pain has progressed despite Augmentin treatment Repeat CT abdomen noting stable diverticulitis findings when compared to CT from 09/29, abdominal adhesions, moderate fecal retention Afebrile, WBC wnl, tachycardic with elevated BP but otherwise stable Started on IV Cefepime and Flagyl by the ED per last recs from ID, continue Consider repeat ID consult Pain control- pt received Dilaudid 1mg in the ED, requesting additional pain meds an hour later noting pain only reduced from 9 to 6 Ordered IV Tylenol 1000mg to be taken with Dilaudid 1mg q4h PRN, pt with Toradol allergy. Judicious use of narcotics given moderate constipation noted on CT abd/pelvis, miralax daily ordered. PDMP shows frequent weekly narcotic prescriptions. Consult General surgery- appreciate recs HTN- On lisinopril 5mg daily, consider titrating dose for adequate BP control Mood- continue Effexor DVT prophylaxis: Lovenox SQ Diet: Currently NPO, advance diet as tolerated CODE STATUS: Full code Dispo: Med/Surg with tele History of Present Illness Chief Complaint: Abdominal Pain Primary Care Provider: Holland Naik MD 53yoF with PMHx significant for recurrent diverticulitis s/p colon resection x2, history of c diff colitis, IBS, HLD, allergic rhinitis, fibromyalgia, migraine, PTSD, DWAYNE, history of tobacco use, depression admitted with recurrent diverticulitis. History obtained from the patient. States that she was discharged after her last admission for recurrent diverticulitis with IV Cefepime and Flagyl. States that her symptoms improved at that time. However, the symptoms returned and had a follow up appointment with her surgeon who started her on cipro and flagyl. States that she completed that course this past Monday on 09/27 and symptoms returned. They became intolerab le and she presented to the ED on 09/[address] of the abdomen/pelvis showed mild diverticulitis. She opted to go home at that time with a prescription for Augmentin. States that the symptoms progressed despite Augmentin use. Notes she follows with Colorectal surgeon Dr. Mireles and has had 2 colonic resections related to this already. States that her surgeon states the next step would be removal of the entire large intestine. States she has been having nausea, but has been able to stay hydrated. Unable to eat however as it makes the pain worse. Pain is on the left side. Allergies Allergy/AdvReac Type Severity Reaction Status Date / Time ibuprofen Allergy Severe Shortness Verified 03/22/23 22:48 of breath and hives ketorolac Allergy Severe HIVES/DIFFICULTY Verified 03/22/23 22:48 BREATHING moxifloxacin Allergy Severe Shortness Verified 03/22/23 22:48 of breath/dizziness Penicillins Allergy Severe Anaphylaxis Verified 10/01/23 15:33 /HIVES Sulfa (Sulfonamide Allergy Severe Shortness Verified 03/22/23 22:48 Antibiotics) of breath and hives tramadol Allergy Severe HIVES/DIFFICULTY Verified 03/22/23 22:48 BREATHING aspirin Allergy Unknown Unknown Verified 03/22/23 22:48 dicyclomine [From Bentyl] AdvReac Intermediate Constipatio Verified 03/22/23 22:48 n haloperidol AdvReac Intermediate "KEEPS ME Verified 03/22/23 22:48 AWAKE, CAN'T SLEEP". hydrocodone AdvReac Intermediate Vomiting Verified 03/22/23 22:49 prochlorperazine AdvReac Intermediate MOTOR Verified 03/22/23 22:49 RESTLESSNESS Home Medications Medication Instructions Recorded Confirmed Type albuterol sulfate 90 mcg/actuation 2 inh inhalation Q4H PRN Shortness 08/07/23 10/01/23 History aerosol inhaler Of Breath Or Wheezing lisinopril 5 mg tablet 5 mg PO DAILY 08/07/23 10/01/23 History venlafaxine 150 mg 300 mg PO DAILY 08/07/23 10/01/23 History capsule,extended release 24 hr ondansetron 4 mg disintegrating 4 mg PO BID PRN nausea and 08/11/23 10/01/23 Rx tablet vomiting #20 tabs amoxicillin 875 mg-potassium 1 tab PO BID #20 tabs 09/29/23 10/01/23 Rx clavulanate 125 mg tablet Past Med/Surg History Medical History (Updated 10/01/23 @ 16:09 by Noel Lozano M.D.) HTN (hypertension) Pancreatitis Generalized pruritus TIA (transient ischemic attack) Facial pain Osteomyelitis GERD (gastroesophageal reflux disease) Squamous cell carcinoma of left shoulder History of Clostridium difficile colitis Suicide attempt by drug ingestion On 04/21/16 10:30 Helene Rene wrote "03/22/2016" IBS (irritable bowel syndrome) Migraine Gastroparesis HLD (hyperlipidemia) Depression DWAYNE (generalized anxiety disorder) Asthma Surgical History (Updated 08/28/23 @ 00:10 by Adryan Pulliam) History of colectomy due to diverticulitis 2008, Dr. Mancuso 2008 H/O unilateral oophorectomy H/O colonoscopy H/O esophagogastroduodenoscopy Hx of appendectomy S/P cholecystectomy S/P MARLON (total abdominal hysterectomy) H/O tubal ligation Hx of tonsillectomy Family History Father Type 2 diabetes mellitus Mother Myocardial infarction Social History Smoking Status: Current every day smoker Tobacco Type: Cigarettes Cigarettes Per Day: 10; Second Hand Exposure: No; Do You Dip or Chew Tobacco: No; Hx Alcohol Use: No Hx Substance Use: No Preferred Language: Tamazight Communication Ability: Effective Edge Runner Required: No Beliefs That Will Affect Care: None Current Living Situation: Alone Feels Safe at Home: Yes Assistive Devices: None Review of Systems Review of Systems: All systems reviewed & are unremarkable except as noted in HPI & below Physical Exam Physical Exam: General: Alert, oriented. No acute distress Skin: No noted rashes or bruises Psych: Appropriate mood and affect Neuro: No gross deficits HEENT: NC/AT Chest: Nontender to palpation. CV: RRR, Normal s1, s2. No murmurs appreciated Resp: Breath sounds clear bilaterally, no increased effort of breathing. No crackles/rhonchi/rales. Abdomen: Soft, tender in left upper and lower abdominal quadrants, nondistended. No guarding. Extremities: No edema in lower extremities bilaterally. Results & Data Results & Data Vital Signs (Past 12 Hours) Vital Signs Temp Pulse Resp BP Pulse Ox O2 Del Method 10/01/23 16:16 83 10/01/23 13:50 36.2 C L 105 H 18 164/119 H 96 Room Air Diagnostic Findings Abdomen/Pelvis CT 10/01/23 14:[address] WITH IV CONTRAST CT DOSE: 1351.83 mGy.cm HISTORY: Acute generalized abdominal pain worsening pain, diverticulitis, n/v TECHNIQUE: Multiaxial CT images of the abdomen and pelvis were performed fo llowing the IV administration of 89 cc of Optiray, A dose lowering technique was utilized adhering to the principles of ALARA. COMPARISON STUDY: 09/29/2023 FINDINGS: The lung bases are generally clear with mild air trapping. No free air. Unremarkable spleen, pancreas and adrenal glands. Cholecystectomy. Hepatic steatosis. Indeterminate 9 mm nodule in the left hepatic lobe adjacent to the falciform ligament is unchanged. Patency of the hepatic and portal veins. 5 mm nonobstructing calculus of the inferior pole right kidney. There are 2 nonobstructing calculi of the inferior pole left kidney measuring up to 4 mm. No ureteral calculi or hydronephrosis. Hysterectomy. Unremarkable urinary bladder which is again noted to be tethered to the anterior abdominal wall. Atherosclerosis of the aorta. No lymphadenopathy. No bowel obstruction. Prior partial sigmoid colon resection with colorectal colonic anastomosis. There is mild wall thickening of the proximal sigmoid colon upstream to the anastomosis with adjacent trace pericolonic stranding, unchanged. No fluid collections. Additional anastomotic suture noted within the splenic flexure. Moderate fecal retention. Appendectomy. Unremarkable soft tissues. No acute fracture. IMPRESSION: 1. Stable exam from the study obtained two days earlier with mild persistent acute sigmoid diverticulitis. 2. No pneumoperitoneum or abscess. 3. No bowel obstruction. 4. Nonobstructing bilateral nephrolithiasis. 5. Additional findings as above. ACT 112: Negative or not required by law. The above report was generated using voice recognition software. It may contain grammatical, syntax or spelling errors. Electronically signed by: Socrates Meyers M.D. 10/01/2023 3:29 PM
[2023-10-01] MEDS ORDERED: ACETAMINOPHEN 1,000 MG/100 ML VIAL IV STA (16:26)
[2023-10-01] MEDS ORDERED: ALBUTEROL HFA 8 GM INHALER INH PRN (18:46)
[2023-10-01] MEDS ORDERED: ACETAMINOPHEN 1,000 MG/100 ML VIAL IV PRN (18:46)
[2023-10-01] MEDS: POLYETHYLENE (MIRALAX) 17 GM PACK PO SCH (19:29)
[2023-10-01] MEDS: SODIUM CHLORIDE 0.9% 1,000 ML IV SCH (19:45)
[2023-10-01] MEDS: HYDROmorphone INJ 1 MG/ML SYRINGE IV PRN (19:53)
[2023-10-01] MEDS: ENOXAPARIN INJ 40 MG/0.4 ML SYR SQ SCH (20:03)
[2023-10-01] MEDS: CEFEPIME 2,000 MG in SYRINGE 0 ML IV SCH (23:29)
[2023-10-01] MEDS: metroNIDAZOLE 500 MG/100 ML BAG IV SCH (23:29)
[2023-10-02 06:39] LABS: Basophils # (auto) 0.06 K/uL (0.00-0.20); Basophils % (auto) 0.8 %; Eosinophils # (auto) 0.36 K/uL (0.00-0.50); Eosinophils % (auto) 4.8 %; Hematocrit (blood only) 43.7 % (37.0-47.0); Immature Granulocytes # (auto) 0.02 K/uL (0.01-0.20); Immature Granulocytes % (auto) 0.3 %; Lymphocytes # (auto) 2.93 K/uL (1.20-3.40); Lymphocytes % (auto) 39.3 %; Mean Corpuscular Hemoglobin 29.2 pg (25.0-34.0); Mean Corpuscular Volume 91.2 fL (80.0-100.0); Mean Platelet Volume 9.3 fL (9.4-12.4); Monocytes # (auto) 0.51 K/uL (0.11-0.59); Monocytes % (auto) 6.8 %; Neutrophils # (auto) 3.58 K/uL (1.40-6.50); Platelet Count 276 K/uL (130-400); RDW Coefficient of Variation 13.5 % (11.5-14.5); RDW Standard Deviation 45.8 fL (36.4-46.3); Red Blood Count 4.79 M/uL (4.20-5.40); White Blood Count 7.46 K/ul (4.8-10.8)
[2023-10-02 06:53] LABS: Albumin Globulin Ratio 1.4 (0.9-2); BUN Creatinine Ratio 12.9 (10-20); Bilirubin,Total 0.5 mg/dl (0.2-1.0); Calcium 9.1 mg/dl (8.6-10.3); Creatinine Clr Calc Pharmacy 110.8 ml/min; Est GFR (African American) 116.3 ml/min; Est GFR (Non-African American) 100.3 ml/min; Globulin 2.8 gm/dl (2.5-4.0); Magnesium 2.1 mg/dl (1.7-2.4); Phosphorus 4.4 mg/dl (2.5-4.9); Potassium 4.1 mmol/L (3.5-5.1); Total Protein 6.8 gm/dl (6.0-8.3)
[2023-10-02] MEDS: metroNIDAZOLE 500 MG/100 ML BAG IV SCH ×3 (07:18→23:07)
[2023-10-02] MEDS: CEFEPIME 2,000 MG in SYRINGE 0 ML IV SCH ×3 (07:18→23:05)
[2023-10-02] MEDS: SODIUM CHLORIDE 0.9% 1,000 ML IV SCH ×2 (09:25→22:05)
[2023-10-02] MEDS: VENLAFAXINE HCL XR 150 MG CAPXR PO SCH (09:39)
[2023-10-02] MEDS: lisinopril 5 MG TAB PO SCH (09:39)
[2023-10-02] MEDS: POLYETHYLENE (MIRALAX) 17 GM PACK PO SCH (09:41)
[2023-10-02] MEDS: HYDROmorphone INJ 1 MG/ML SYRINGE IV PRN ×4 (11:15→23:05)
[2023-10-02] MEDS: ONDANSETRON INJ 2 MG/ML 2 ML VIAL IV PRN ×2 (11:23→23:05)
--- NOTE | 2023-10-02 12:58 | Surgery Consultation ---
Date of Consultation October 02, 2023 Assessment & Plan (1) Diverticulitis of sigmoid colon: IVF NPO IV abx History of Present Illness Attending Physician: Nereyda Harding MD History of Present Illness This is a 53-year-old female past medical history including s/p colonic resection X2 for diverticulitis. She was admitted with worsening LLQ abdominal pain. She was started a course of Augmentin as an outpatient which has failed. CT scan shows recurrent stable diverticulitis without complication. Allergies Allergy/AdvReac Type Severity Reaction Status Date / Time ibuprofen Allergy Severe Shortness Verified 03/22/23 22:48 of breath and hives ketorolac Allergy Severe HIVES/DIFFICULTY Verified 03/22/23 22:48 BREATHING moxifloxacin Allergy Severe Shortness Verified 03/22/23 22:48 of breath/dizziness Penicillins Allergy Severe Anaphylaxis Verified 10/01/23 15:33 /HIVES Sulfa (Sulfonamide Allergy Severe Shortness Verified 03/22/23 22:48 Antibiotics) of breath and hives tramadol Allergy Severe HIVES/DIFFICULTY Verified 03/22/23 22:48 BREATHING aspirin Allergy Unknown Unknown Verified 03/22/23 22:48 dicyclomine [From Bentyl] AdvReac Intermediate Constipatio Verified 03/22/23 22:48 n haloperidol AdvReac Intermediate "KEEPS ME Verified 03/22/23 22:48 AWAKE, CAN'T SLEEP". hydrocodone AdvReac Intermediate Vomiting Verified 03/22/23 22:49 prochlorperazine AdvReac Intermediate MOTOR Verified 03/22/23 22:49 RESTLESSNESS Home Medications Medication Instructions Recorded Confirmed Type albuterol sulfate 90 mcg/actuation 2 inh inhalation Q4H PRN Shortness 08/07/23 10/01/23 History aerosol inhaler Of Breath Or Wheezing lisinopril 5 mg tablet 5 mg PO DAILY 08/07/23 10/01/23 History venlafaxine 150 mg 300 mg PO DAILY 08/07/23 10/01/23 History capsule,extended release 24 hr ondansetron 4 mg disintegrating 4 mg PO BID PRN nausea and 08/11/23 10/01/23 Rx tablet vomiting #20 tabs amoxicillin 875 mg-potassium 1 tab PO BID #20 tabs 09/29/23 10/01/23 Rx clavulanate 125 mg tablet Patient History Medical History (Updated 10/01/23 @ 16:09 by Noel Lozano M.D.) HTN (hypertension) Pancreatitis Generalized pruritus TIA (transient ischemic attack) Facial pain Osteomyelitis GERD (gastroesophageal reflux disease) Squamous cell carcinoma of left shoulder History of Clostridium difficile colitis Suicide attempt by drug ingestion On 04/21/16 10:30 Helene Aguilar Rene wrote "03/22/2016" IBS (irritable bowel syndrome) Migraine Gastroparesis HLD (hyperlipidemia) Depression DWAYNE (generalized anxiety disorder) Asthma Surgical History (Updated 08/28/23 @ 00:10 by Adryan Pulliam) History of colectomy due to diverticulitis 2008, Dr. Mancuso 2008 H/O unilateral oophorectomy H/O colonoscopy H/O esophagogastroduodenoscopy Hx of appendectomy S/P cholecystectomy S/P MARLON (total abdominal hysterectomy) H/O tubal ligation Hx of tonsillectomy Family History Father Type 2 diabetes mellitus Mother Myocardial infarction Social History Smoking Status: Current every day smoker Tobacco Type: Cigarettes Cigarettes Per Day: 10; Second Hand Exposure: No; Do You Dip or Chew Tobacco: No; Hx Alcohol Use: No Hx Substance Use: No Preferred Language: Romanian Communication Ability: Effective Surveillance Operator Required: No Beliefs That Will Affect Care: None Current Living Situation: Alone Other Information That Helps Us Care for You: No Feels Safe at Home: Yes Safety Concerns: Feels Safe At This Time Assistive Devices: None Review of Systems Constitutional: + fever and + anorexia; no chills Eyes: no problem reported Ear, Nose, Mouth, Throat: no problem reported Respiratory: no cough and no dyspnea Cardiovascular: no chest pain Gastrointestinal: + abdominal pain, + nausea and + change in bowel habits; no vomiting Genitourinary: no dysuria Musculoskeletal: no back pain and no neck pain Neurologic: no localized weakness and no generalized weakness Psychiatric: no behavioral changes Physical Exam Constitutional: WD/WN, vitals as above Eyes: PERRL, conjunctivae normal, anicteric sclerae ENMT: external ear and nose normal, oropharynx normal Neck: trachea midline Respiratory: normal respiratory effort, lungs clear to auscultation Cardiovascular: RRR, no murmur, no edema Gastrointestinal (Abdomen): Inspection/Auscultation: abdomen normal to inspection and normal bowel sounds; abdomen not distended Percussion/Palpation: + abdomen tender and abdomen soft; no guarding and abdomen not rigid Musculoskeletal: Head/Neck/Chest: normocephalic and head atraumatic Skin: no rashes, warm and dry Results & Data Vital Signs (Past 12 Hours) Vital Signs Temp Pulse Pulse Resp BP Pulse Ox O2 Del Method 10/02/23 11:34 37.1 C 87 16 160/114 H 91 Room Air 10/02/23 08:06 36.6 C 88 16 156/93 H 90 Room Air 10/02/23 07:49 75 10/02/23 04:00 36.8 C 83 18 161/97 H 94 Room Air Diagnostic Findings ABDOMEN AND PELVIS CT WITH IV CONTRAST CT DOSE: 1351.83 mGy.cm HISTORY: Acute generalized abdominal pain worsening pain, diverticulitis, n/v TECHNIQUE: Multiaxial CT images of the abdomen and pelvis were performed following the IV administration of 89 cc of Optiray, A dose lowering technique was utilized adhering to the principles of ALARA. COMPARISON STUDY: 09/29/2023 FINDINGS: The lung bases are generally clear with mild air trapping. No free air. Unremarkable spleen, pancreas and adrenal glands. Cholecystectomy. Hepatic steatosis. Indeterminate 9 mm nodule in the left hepatic lobe adjacent to the falciform ligament is unchanged. Patency of the hepatic and portal veins. 5 mm nonobstructing calculus of the inferior pole right kidney. There are 2 nonobstructing calculi of the inferior pole left kidney measuring up to 4 mm. No ureteral calculi or hydronephrosis. Hysterectomy. Unremarkable urinary bladder which is again noted to be tethered to the anterior abdominal wall. Atherosclerosis of the aorta. No lymphadenopathy. No bowel obstruction. Prior partial sigmoid colon resection with colorectal colonic anastomosis. There is mild wall thickening of the proximal sigmoid colon upstream to the anastomosis with adjacent trace pericolonic stranding, unchanged. No fluid collections. Additional anastomotic suture noted within the splenic flexure. Moderate fecal retention. Appendectomy. Unremarkable soft tissues. No acute fracture. IMPRESSION: 1. Stable exam from the study obtained two days earlier with mild persistent acute sigmoid diverticulitis. 2. No pneumoperitoneum or abscess. 3. No bowel obstruction. 4. Nonobstructing bilateral nephrolithiasis. 5. Additional findings as above.
--- NOTE | 2023-10-02 14:14 | Hospitalist Progress Note ---
Date of Service October 02, 2023 Assessment & Plan (1) Nausea: (2) Abdominal pain: (3) Diverticulitis of sigmoid colon: (4) HTN (hypertension): Plan 53yoF with PMHx significant for recurrent diverticulitis s/p colon resection x2, history of c diff colitis, IBS, HLD, allergic rhinitis, fibromyalgia, migraine, PTSD, DWAYNE, history of tobacco use, depression admitted with recurrent diverticulitis. Diverticulitis, recurrent s/p Colonic resection Hx of c diff colitis Presenting with worsening abdominal pain Pt with Hx of diverticulitis, follows with Colorectal surgeon Dr Mireles Finished course of flagyl and cipro on 09/27, started with symptoms again that day Presented to ED on 09/29, CT noting mild diverticulitis, wanted to try Augmentin States abdominal pain has progressed despite Augmentin treatment Repeat CT abdomen noting stable diverticulitis findings when compared to CT from 09/29, abdominal adhesions, moderate fecal retention Afebrile, WBC wnl, tachycardic with elevated BP but otherwise stable Continue abx with IV Cefepime and Flagyl Surgery on board recommended conservative management with IVF, NPO and IV abx Continue monitor closely HTN BP elevated Continue lisinopril 5mg daily if BP elevates, will increase Lisinopril to 10mg Mood- continue Effexor DVT prophylaxis: Lovenox SQ CODE STATUS: Full code Dispo: Med/Surg with tele Admission and Anticipated Discharge Date Admission Date: October 01, 2023 Subjective Pt was seen and examined for follow up of abdominal pain due to diverticulitis Lying in bed with no acute distress Pt said that pain seems to improves today Denies any chest pain, palpitation, chills and fever Review of Systems Review of Systems: All systems reviewed & are unremarkable except as noted in Subjective Physical Exam Physical Exam: General- No acute distress Head- atraumatic Eyes- PERRL, EOMI, ENT- oropharynx clear Neck- supple, no JVD Lungs- clear to auscultation Heart- regular rhythm; no murmur Abdomen- +abdominal tenderness Extremities- no calf tenderness Neuro- alert, oriented x 3; PERRL, EOMI; no facial palsy; no dysarthria Skin- warm & dry Results & Data Results & Data Vital Signs (Past 12 Hours) Vital Signs Temp Pulse Pulse Resp BP Pulse Ox O2 Del Method 10/02/23 11:34 37.1 C 87 16 160/114 H 91 Room Air 10/02/23 08:06 36.6 C 88 16 156/93 H 90 Room Air 10/02/23 07:49 75 10/02/23 04:00 36.8 C 83 18 161/97 H 94 Room Air
[2023-10-02] MEDS: ENOXAPARIN INJ 40 MG/0.4 ML SYR SQ SCH ×2 (18:30)
[2023-10-03] MEDS: HYDROmorphone INJ 1 MG/ML SYRINGE IV PRN ×5 (03:05→20:02)
[2023-10-03 06:38] LABS: BUN Creatinine Ratio 14.3 (10-20); Calcium 8.9 mg/dl (8.6-10.3); Creatinine Clr Calc Pharmacy 100.8 ml/min; Est GFR (African American) 103.6 ml/min; Est GFR (Non-African American) 89.4 ml/min; Phosphorus 4.5 mg/dl (2.5-4.9); Potassium 4.2 mmol/L (3.5-5.1)
[2023-10-03] MEDS: CEFEPIME 2,000 MG in SYRINGE 0 ML IV SCH ×2 (07:13→15:28)
[2023-10-03] MEDS: SODIUM CHLORIDE 0.9% 1,000 ML IV SCH ×2 (07:13→20:01)
[2023-10-03] MEDS: metroNIDAZOLE 500 MG/100 ML BAG IV SCH ×2 (07:13→15:30)
[2023-10-03] MEDS: lisinopril 5 MG TAB PO SCH (08:34)
[2023-10-03] MEDS: VENLAFAXINE HCL XR 150 MG CAPXR PO SCH (08:34)
[2023-10-03] MEDS: POLYETHYLENE (MIRALAX) 17 GM PACK PO SCH (08:38)
--- NOTE | 2023-10-03 13:43 | Surgery Progress Note ---
Date of Service October 03, 2023 Assessment & Plan (1) Diverticulitis of sigmoid colon: Plan: improving on IV abx begins clears hopefully progress diet and begin po abx soon Present on Admission?: Yes Admission and Anticipated Discharge Date Admission Date: October 01, 2023 Subjective pain improving afebrile good appetite Review of Systems Constitutional: no fever and no chills Respiratory: no cough and no dyspnea Cardiovascular: no chest pain Gastrointestinal: + abdominal pain; no nausea, no vomiting and no change in bowel habits Genitourinary: no dysuria Musculoskeletal: no back pain Neurologic: no generalized weakness Psychiatric: no behavioral changes Physical Exam Constitutional: WD/WN, vitals as above Eyes: PERRL, conjunctivae normal, anicteric sclerae Respiratory: normal respiratory effort, lungs clear to auscultation Cardiovascular: RRR, no murmur, no edema Gastrointestinal (Abdomen): Inspection/Auscultation: abdomen normal to inspection and normal bowel sounds; abdomen not distended Percussion/Palpation: + abdomen tender and abdomen soft; no guarding and abdomen not rigid Musculoskeletal: Head/Neck/Chest: normocephalic and head atraumatic Results & Data Vital Signs (Past 12 Hours) Vital Signs Temp Pulse Pulse Resp BP BP Pulse Ox 10/03/23 11:19 36.6 C 75 18 152/95 H 93 10/03/23 07:30 36.9 C 79 18 136/84 95 10/03/23 07:08 10/03/23 05:57 76 10/03/23 03:02 36.6 C 84 20 149/89 H 92 O2 Del Method 10/03/23 11:19 Room Air 10/03/23 07:30 Room Air 10/03/23 07:08 Room Air 10/03/23 05:57 10/03/23 03:02 Room Air
[2023-10-03] MEDS: ONDANSETRON INJ 2 MG/ML 2 ML VIAL IV PRN (15:16)
[2023-10-03] MEDS: ENOXAPARIN INJ 40 MG/0.4 ML SYR SQ SCH (15:31)
--- NOTE | 2023-10-03 18:23 | Hospitalist Progress Note ---
Date of Service October 03, 2023 Assessment & Plan (1) Nausea: (2) Abdominal pain: (3) Diverticulitis of sigmoid colon: (4) HTN (hypertension): Plan 53yoF with PMHx significant for recurrent diverticulitis s/p colon resection x2, history of c diff colitis, IBS, HLD, allergic rhinitis, fibromyalgia, migraine, PTSD, DWAYNE, history of tobacco use, depression admitted with recurrent diverticulitis. Diverticulitis, recurrent s/p Colonic resection Hx of c diff colitis Presenting with worsening abdominal pain Pt with Hx of diverticulitis, follows with Colorectal surgeon Dr Mireles Finished course of flagyl and cipro on 09/27, started with symptoms again that day Presented to ED on 09/29, CT noting mild diverticulitis, wanted to try Augmentin States abdominal pain has progressed despite Augmentin treatment Repeat CT abdomen noting stable diverticulitis findings when compared to CT from 09/29, abdominal adhesions, moderate fecal retention Afebrile, WBC wnl, tachycardic with elevated BP but otherwise stable Continue abx with IV Cefepime and Flagyl Surgery on board recommended conservative management with IVF, IV abx started on clear liquid diet, then advance slowly Continue monitor closely HTN BP elevated Continue lisinopril 5mg daily if BP remains elevating, will increase Lisinopril to 10mg Mood- continue Effexor DVT prophylaxis: Lovenox SQ CODE STATUS: Full code Disposition Will discharge one medically stable Admission and Anticipated Discharge Date Admission Date: October 01, 2023 Subjective Pt was seen and examined for follow up of diverticulitis Lying in bed with no acute distress Pt said that her abdominal pain improves compared to when she came Denies any fever, chills, nausea, palpitation and SOB Review of Systems Review of Systems: All systems reviewed & are unremarkable except as noted in Subjective Physical Exam Physical Exam: General- No acute distress Head- atraumatic Eyes- PERRL, EOMI, ENT- oropharynx clear Neck- supple, no JVD Lungs- clear to auscultation Heart- regular rhythm; no murmur Abdomen- +abdominal tenderness with palpation Extremities- no calf tenderness Neuro- alert, oriented x 3; PERRL, EOMI; no facial palsy; no dysarthria Skin- warm & dry Results & Data Results & Data Vital Signs (Past 12 Hours) Vital Signs Temp Pulse Pulse Resp BP Pulse Ox O2 Del Method 10/03/23 15:22 36.6 C 89 18 145/89 H 95 Room Air 10/03/23 14:42 98 H 10/03/23 11:19 36.6 C 75 18 152/95 H 93 Room Air 10/03/23 07:30 36.9 C 79 18 136/84 95 Room Air 10/03/23 07:08 Room Air
[2023-10-04] MEDS: CEFEPIME 2,000 MG in SYRINGE 0 ML IV SCH ×4 (00:22→23:44)
[2023-10-04] MEDS: HYDROmorphone INJ 1 MG/ML SYRINGE IV PRN ×4 (00:22→12:55)
[2023-10-04] MEDS: metroNIDAZOLE 500 MG/100 ML BAG IV SCH ×4 (00:23→23:50)
[2023-10-04] MEDS: ONDANSETRON INJ 2 MG/ML 2 ML VIAL IV PRN ×2 (04:15→12:55)
[2023-10-04] MEDS: POLYETHYLENE (MIRALAX) 17 GM PACK PO SCH (08:56)
[2023-10-04] MEDS: SODIUM CHLORIDE 0.9% 1,000 ML IV SCH ×2 (08:56→22:36)
[2023-10-04] MEDS: VENLAFAXINE HCL XR 150 MG CAPXR PO SCH (08:57)
[2023-10-04] MEDS: lisinopril 5 MG TAB PO SCH (08:57)
--- NOTE | 2023-10-04 11:25 | Surgery Progress Note ---
Date of Service October 04, 2023 Assessment & Plan (1) Diverticulitis of sigmoid colon: Plan: con't IV abx no surgical intervention indicated advance diet as tolerated Present on Admission?: Yes Admission and Anticipated Discharge Date Admission Date: October 01, 2023 Subjective pain improving some discomfort with po Review of Systems Constitutional: no fever and no chills Respiratory: no cough and no dyspnea Cardiovascular: no chest pain Gastrointestinal: + abdominal pain; no nausea, no vomiting and no change in bowel habits Genitourinary: no dysuria Musculoskeletal: no back pain Neurologic: no localized weakness and no generalized weakness Psychiatric: no behavioral changes Physical Exam Constitutional: WD/WN, vitals as above Eyes: PERRL, conjunctivae normal, anicteric sclerae Neck: trachea midline Respiratory: normal respiratory effort, lungs clear to auscultation Cardiovascular: RRR, no murmur, no edema Gastrointestinal (Abdomen): Inspection/Auscultation: abdomen normal to inspection and normal bowel sounds; abdomen not distended Percussion/Palpation: + abdomen tender and abdomen soft; no guarding and abdomen not rigid Musculoskeletal: Head/Neck/Chest: normocephalic and head atraumatic Results & Data Vital Signs (Past 12 Hours) Vital Signs Temp Pulse Pulse Resp BP BP Pulse Ox 10/04/23 11:18 37.0 C 77 18 147/93 H 94 10/04/23 07:24 36.9 C 83 18 131/84 94 10/04/23 07:07 10/04/23 05:57 76 10/04/23 03:47 36.9 C 87 20 142/95 H 95 O2 Del Method 10/04/23 11:18 Room Air 10/04/23 07:24 Room Air 10/04/23 07:07 Room Air 10/04/23 05:57 10/04/23 03:47 Room Air
[2023-10-04 12:49] LABS: Basophils # (auto) 0.05 K/uL (0.00-0.20); Basophils % (auto) 0.6 %; Eosinophils # (auto) 0.42 K/uL (0.00-0.50); Eosinophils % (auto) 5.4 %; Hematocrit (blood only) 43.9 % (37.0-47.0); Hemoglobin 14.4 g/dl (12.0-16.0); Immature Granulocytes # (auto) 0.02 K/uL (0.01-0.20); Immature Granulocytes % (auto) 0.3 %; Lymphocytes # (auto) 2.71 K/uL (1.20-3.40); Mean Corpuscular Hemoglobin 29.7 pg (25.0-34.0); Mean Corpuscular Hgb Conc 32.8 g/dL (32.0-36.0); Mean Corpuscular Volume 90.5 fL (80.0-100.0); Mean Platelet Volume 9.4 fL (9.4-12.4); Monocytes # (auto) 0.54 K/uL (0.11-0.59); Neutrophils # (auto) 4.01 K/uL (1.40-6.50); Neutrophils % (auto) 51.7 %; Platelet Count 269 K/uL (130-400); RDW Standard Deviation 43.1 fL (36.4-46.3); Red Blood Count 4.85 M/uL (4.20-5.40); White Blood Count 7.75 K/ul (4.8-10.8)
[2023-10-04] MEDS: ENOXAPARIN INJ 40 MG/0.4 ML SYR SQ SCH (12:57)
[2023-10-04 13:14] LABS: Albumin Globulin Ratio 1.4 (0.9-2); Albumin Level 4.2 gm/dl (3.4-5.0); BUN Creatinine Ratio 10.8 (10-20); Bilirubin,Total 0.4 mg/dl (0.2-1.0); Calcium 9.3 mg/dl (8.6-10.3); Creatinine Clr Calc Pharmacy 105.2 ml/min; Est GFR (African American) 108.7 ml/min; Est GFR (Non-African American) 93.8 ml/min; Globulin 2.9 gm/dl (2.5-4.0); Phosphorus 3.7 mg/dl (2.5-4.9); Potassium 4.5 mmol/L (3.5-5.1); Total Protein 7.1 gm/dl (6.0-8.3)
--- NOTE | 2023-10-04 15:29 | Hospitalist Progress Note ---
Date of Service October 04, 2023 Assessment & Plan (1) Nausea: (2) Abdominal pain: (3) Diverticulitis of sigmoid colon: (4) Sigmoid diverticulitis: Plan 53yoF with PMHx significant for recurrent diverticulitis s/p colon resection x2, history of c diff colitis, IBS, HLD, allergic rhinitis, fibromyalgia, migraine, PTSD, DWAYNE, history of tobacco use, depression admitted with recurrent diverticulitis. Diverticulitis, recurrent s/p Colonic resection Hx of c diff colitis Presenting with worsening abdominal pain Pt with Hx of diverticulitis, follows with Colorectal surgeon Dr Mireles Finished course of flagyl and cipro on 09/27, started with symptoms again that day Presented to ED on 09/29, CT noting mild diverticulitis, wanted to try Augmentin States abdominal pain has progressed despite Augmentin treatment Repeat CT abdomen noting stable diverticulitis findings when compared to CT from 09/29, abdominal adhesions, moderate fecal retention Afebrile, WBC wnl, tachycardic with elevated BP but otherwise stable Continue abx with IV Cefepime and Flagyl Surgery on board recommended conservative management with IVF, IV abx Advanced to full liquids today Continue to monitor closely HTN BP elevated Continue lisinopril 5mg daily if BP remains elevated, will increase Lisinopril to 10mg Mood- continue Effexor DVT prophylaxis: Lovenox SQ CODE STATUS: Full code Disposition : discharging home Admission and Anticipated Discharge Date Admission Date: October 01, 2023 Subjective States that she would like her diet advanced to full liquids. Has been getting IV Dialudid regularly, agreeable to switching to po narcotics. Notes pain is improving. Review of Systems Review of Systems: All systems reviewed & are unremarkable except as noted in Subjective Physical Exam Physical Exam: General: Alert, oriented. No acute distress Skin: No noted rashes or bruises Psych: Appropriate mood and affect Neuro: No gross deficits HEENT: NC/AT Chest: Nontender to palpation. CV: RRR, Normal s1, s2. No murmurs appreciated Resp: Breath sounds clear bilaterally, no increased effort of breathing. No crackles/rhonchi/rales. Abdomen: Soft, tender in left upper and lower abdominal quadrants, nondistended. No guarding. Extremities: No edema in lower extremities bilaterally. Results & Data Results & Data Vital Signs (Past 12 Hours) Vital Signs Temp Pulse Pulse Resp BP BP Pulse Ox 10/04/23 15:15 37.1 C 82 18 146/89 H 93 10/04/23 13:53 80 10/04/23 11:18 37.0 C 77 18 147/93 H 94 10/04/23 07:24 36.9 C 83 18 131/84 94 10/04/23 07:07 10/04/23 05:57 76 10/04/23 03:47 36.9 C 87 20 142/95 H 95 O2 Del Method 10/04/23 15:15 Room Air 10/04/23 13:53 10/04/23 11:18 Room Air 10/04/23 07:24 Room Air 10/04/23 07:07 Room Air 10/04/23 05:57 10/04/23 03:47 Room Air
[2023-10-04] MEDS: oxyCODONE HCL IR 5 MG TAB (IMMEDIATE RELEASE) PO PRN ×2 (15:34→22:35)
[2023-10-05] MEDS: oxyCODONE HCL IR 5 MG TAB (IMMEDIATE RELEASE) PO PRN ×2 (06:16→11:27)
[2023-10-05 06:50] LABS: Basophils # (auto) 0.04 K/uL (0.00-0.20); Basophils % (auto) 0.5 %; Eosinophils # (auto) 0.44 K/uL (0.00-0.50); Eosinophils % (auto) 5.6 %; Hematocrit (blood only) 44.6 % (37.0-47.0); Hemoglobin 14.5 g/dl (12.0-16.0); Immature Granulocytes # (auto) 0.01 K/uL (0.01-0.20); Immature Granulocytes % (auto) 0.1 %; Lymphocytes # (auto) 2.62 K/uL (1.20-3.40); Lymphocytes % (auto) 33.6 %; Mean Corpuscular Hemoglobin 29.8 pg (25.0-34.0); Mean Corpuscular Hgb Conc 32.5 g/dL (32.0-36.0); Mean Corpuscular Volume 91.8 fL (80.0-100.0); Mean Platelet Volume 9.5 fL (9.4-12.4); Monocytes # (auto) 0.53 K/uL (0.11-0.59); Monocytes % (auto) 6.8 %; Neutrophils # (auto) 4.16 K/uL (1.40-6.50); Neutrophils % (auto) 53.4 %; Platelet Count 274 K/uL (130-400); RDW Coefficient of Variation 12.9 % (11.5-14.5); RDW Standard Deviation 43.6 fL (36.4-46.3); Red Blood Count 4.86 M/uL (4.20-5.40)
[2023-10-05 07:16] LABS: Albumin Globulin Ratio 1.5 (0.9-2); Albumin Level 4.1 gm/dl (3.4-5.0); BUN Creatinine Ratio 7.4 (10-20); Bilirubin,Total 0.4 mg/dl (0.2-1.0); Calcium 9.4 mg/dl (8.6-10.3); Creatinine Clr Calc Pharmacy 114.3 ml/min; Est GFR (African American) 117.4 ml/min; Est GFR (Non-African American) 101.3 ml/min; Globulin 2.7 gm/dl (2.5-4.0); Magnesium 1.9 mg/dl (1.7-2.4); Phosphorus 3.6 mg/dl (2.5-4.9); Potassium 4.2 mmol/L (3.5-5.1); Total Protein 6.8 gm/dl (6.0-8.3)
[2023-10-05] MEDS: lisinopril 5 MG TAB PO SCH (08:22)
[2023-10-05] MEDS: VENLAFAXINE HCL XR 150 MG CAPXR PO SCH (08:23)
[2023-10-05] MEDS: CEFEPIME 2,000 MG in SYRINGE 0 ML IV SCH (08:23)
[2023-10-05] MEDS: metroNIDAZOLE 500 MG/100 ML BAG IV SCH (08:25)
[2023-10-05] MEDS: POLYETHYLENE (MIRALAX) 17 GM PACK PO SCH (08:32)
--- NOTE | 2023-10-05 10:40 | Surgery Progress Note ---
Date of Service October 05, 2023 Assessment & Plan (1) Diverticulitis of sigmoid colon: Plan discharge per medicine home on po abx diet as tolerated will sign off Admission and Anticipated Discharge Date Admission Date: October 01, 2023 Subjective pain resolving taking po Review of Systems Constitutional: no fever and no chills Respiratory: no cough and no dyspnea Cardiovascular: no chest pain Gastrointestinal: + abdominal pain; no nausea, no vomiting and no change in bowel habits Genitourinary: no dysuria Musculoskeletal: no back pain Neurologic: no localized weakness and no generalized weakness Hematologic / Lymphatic: no easy bleeding and no easy bruising Physical Exam Constitutional: WD/WN, vitals as above Neck: trachea midline Respiratory: normal respiratory effort, lungs clear to auscultation Cardiovascular: RRR, no murmur, no edema Gastrointestinal (Abdomen): Inspection/Auscultation: abdomen normal to inspection and normal bowel sounds Percussion/Palpation: + abdomen tender and abdomen soft; no guarding and abdomen not rigid Musculoskeletal: Head/Neck/Chest: normocephalic and head atraumatic Results & Data Vital Signs (Past 12 Hours) Vital Signs Temp Pulse Pulse Resp BP BP Pulse Ox 10/05/23 09:09 10/05/23 07:40 36.8 C 86 18 144/84 H 92 10/05/23 07:34 74 10/05/23 03:08 36.8 C 80 20 137/84 94 10/04/23 23:38 75 10/04/23 23:36 36.9 C 73 18 142/80 H 95 O2 Del Method 10/05/23 09:09 Room Air 10/05/23 07:40 Room Air 10/05/23 07:34 10/05/23 03:08 Room Air 10/04/23 23:38 10/04/23 23:36 Room Air
--- NOTE | 2023-10-05 11:07 | Discharge Summary ---
Discharge Summary Date of Service October 05, 2023 Notes For Next Care Provider Please ensure close follow up with her colorectal surgeon for definitive management Please consider alternative pain management treatments for her pain to avoid narcotic dependency- pt with noted almost weekly narcotic prescriptions per the PDMP. Medication Changes From Visit Cefdinir 300mg BID x 14 days Flagyl 500mg TID x 14 days Oxycodone 5mg q6h PRN Admission HPI Per Admitting Provider 53yoF with PMHx significant for recurrent diverticulitis s/p colon resection x2, history of c diff colitis, IBS, HLD, allergic rhinitis, fibromyalgia, migraine, PTSD, DWAYNE, history of tobacco use, depression admitted with recurrent diverticulitis. History obtained from the patient. States that she was discharged after her last admission for recurrent diverticulitis with IV Cefepime and Flagyl. States that her symptoms improved at that time. However, the symptoms returned and had a follow up appointment with her surgeon who started her on cipro and flagyl. States that she completed that course this past Monday on 09/27 and symptoms returned. They became intolerable and she presented to the ED on 09/[address] of the abdomen/pelvis showed mild diverticulitis. She opted to go home at that time with a prescription for Augmentin. States that the symptoms progressed despite Augmentin use. Notes she follows with Colorectal surgeon Dr. Mireles and has had 2 colonic resections related to this already. States that her surgeon states the next step would be removal of the entire large intestine. States she has been having nausea, but has been able to stay hydrated. Unable to eat however as it makes the pain worse. Pain is on the left side. Admission Exam Per Admitting Provider General: Alert, oriented. No acute distress Skin: No noted rashes or bruises Psych: Appropriate mood and affect Neuro: No gross deficits HEENT: NC/AT Chest: Nontender to palpation. CV: RRR, Normal s1, s2. No murmurs appreciated Resp: Breath sounds clear bilaterally, no increased effort of breathing. No crackles/rhonchi/rales. Abdomen: Soft, tender in left upper and lower abdominal quadrants, nondistended. No guarding. Extremities: No edema in lower extremities bilaterally. Principal Dx & Hospital Course #1 = Principal Diagnosis (1) Nausea: (2) Abdominal pain: (3) Diverticulitis of sigmoid colon: Plan 53yoF with PMHx significant for recurrent diverticulitis s/p colon resection x2, history of c diff colitis, IBS, HLD, allergic rhinitis, fibromyalgia, migraine, PTSD, DWAYNE, history of tobacco use, depression admitted with recurrent diverticulitis. Diverticulitis, recurrent s/p Colonic resection Hx of c diff colitis Presented with worsening abdominal pain Pt with Hx of diverticulitis, follows with Colorectal surgeon Dr Mireles Finished course of flagyl and cipro on 09/27, started with symptoms again that day Presented to ED on 09/29, CT noting mild diverticulitis, wanted to try Augmentin States abdominal pain has progressed despite Augmentin treatment, concedes she only took Augmentin for [address] abdomen noting stable diverticulitis findings when compared to CT from 09/29, abdominal adhesions, moderate fecal retention Afebrile, WBC wnl, tachycardic with elevated BP but otherwise stable Treated with IV Cefepime and Flagyl, transitioned to 14 days of po cefdinir and Flagyl on discharge Surgery on board recommended conservative management with IVF, IV abx Advanced to full liquids today and discharged with such. Per pt typical for her to be discharged with full liquid diet and she slowly advances at home. Close pcp and colorectal surgeon f/u recommended especially in the setting of need for frequent antibiotic and narcotic treatments. Please ensure close follow up with her colorectal surgeon for definitive management Please consider alternative pain management treatments for her pain to avoid narcotic dependency- pt with noted almost weekly narcotic prescriptions per the PDMP. HTN BP elevated Continue lisinopril 5mg daily if BP remains elevated, consider titrating lisinopril dose. Mood- continue Effexor Discharge Exam General: Alert, oriented. No acute distress Skin: No noted rashes or bruises Psych: Appropriate mood and affect Neuro: No gross deficits HEENT: NC/AT Chest: Nontender to palpation. CV: RRR, Normal s1, s2. No murmurs appreciated Resp: Breath sounds clear bilaterally, no increased effort of breathing. No crackles/rhonchi/rales. Abdomen: Soft, tender in left upper and lower abdominal quadrants, nondistended. No guarding. Extremities: No edema in lower extremities bilaterally. Updated Medication List Medication Instructions Recorded Confirmed Type albuterol sulfate 90 mcg/actuation 2 inh inhalation Q4H PRN Shortness 08/07/23 1 12/02/22 History aerosol inhaler Of Breath Or Wheezing lisinopril 5 mg tablet 5 mg PO DAILY 08/07/23 10/01/23 History venlafaxine 150 mg 300 mg PO DAILY 08/07/23 10/01/23 History capsule,extended release 24 hr ondansetron 4 mg disintegrating 4 mg PO BID PRN nausea and 08/11/23 10/01/23 Rx tablet vomiting #20 tabs cefdinir 300 mg capsule 300 mg PO BID #28 caps 10/05/23 Rx docusate sodium 100 mg tablet 100 mg PO BID #60 tabs 10/05/23 Rx metronidazole 500 mg tablet 500 mg PO Q8H #42 tabs 10/05/23 Rx oxycodone 5 mg tablet 5 mg PO Q6H PRN pain #20 tabs 10/05/23 Rx Hospital Stay Data Consultations 10/01/23 15:52 ED Decision to Admit Stat 10/01/23 16:29 Consult General Surgery Routine Diagnostic Imagining Performed 10/01/23 14:25 CT abd pelvis IV con only Stat Abdomen/Pelvis CT 10/01/23 14:[address] WITH IV CONTRAST CT DOSE: 1351.83 mGy.cm HISTORY: Acute generalized abdominal pain worsening pain, diverticulitis, n/v TECHNIQUE: Multiaxial CT images of the abdomen and pelvis were performed following the IV administration of 89 cc of Optiray, A dose lowering technique was utilized adhering to the principles of ALARA. COMPARISON STUDY: 09/29/2023 FINDINGS: The lung bases are generally clear with mild air trapping. No free air. Unremarkable spleen, pancreas and adrenal glands. Cholecystectomy. Hepatic steatosis. Indeterminate 9 mm nodule in the left hepatic lobe adjacent to the falciform ligament is unchanged. Patency of the hepatic and portal veins. 5 mm nonobstructing calculus of the inferior pole right kidney. There are 2 nonobstructing calculi of the inferior pole left kidney measuring up to 4 mm. No ureteral calculi or hydronephrosis. Hysterectomy. Unremarkable urinary bladder which is again noted to be tethered to the anterior abdominal wall. Atherosclerosis of the aorta. No lymphadenopathy. No bowel obstruction. Prior partial sigmoid colon resection with colorectal colonic anastomosis. There is mild wall thickening of the proximal sigmoid colon upstream to the anastomosis with adjacent trace pericolonic stranding, unchanged. No fluid collections. Additional anastomotic suture noted within the splenic flexure. Moderate fecal retention. Appendectomy. Unremarkable soft tissues. No acute fracture. IMPRESSION: 1. Stable exam from the study obtained two days earlier with mild persistent acute sigmoid diverticulitis. 2. No pneumoperitoneum or abscess. 3. No bowel obstruction. 4. Nonobstructing bilateral nephrolithiasis. 5. Additional findings as above. ACT 112: Negative or not required by law. The above report was generated using voice recognition software. It may contain grammatical, syntax or spelling errors. Electronically signed by: Socrates Meyers M.D. 10/01/2023 3:29 PM Pending Results Patient Have Any Pending Studies at Discharge: No Discharge Instructions Given to Patient (Per Discharging Provider) Ms. Matthews, You were admitted with recurrent diverticulitis. We treated you with IV antibiotics and we are discharging you with an oral course of cefdinir and f lagyl once more. We ask that you keep close follow up with your primary care provider, salvage grinder and surgeon after discharge. We are also discharging you with oral oxycodone for a few days. Please be cautious with the use of narcotics for an extended period of time as they can cause dependence on them, in addition to slowing down the GI tract and causing other issues such as constipation. Please consider taking your medications with a probiotic and stool softener. Please contact your primary care provider for any medication refills. It was a pleasure taking care of you while you were here! Total Time Total Time Spent Total Time Spent (In Minutes): >30 minutes
== END 2023-10-05 12:43 | disposition home or self-care (01) ==
LOC: ED 13:38 → INTOOBSV 16:13 → SUATTDRO 16:13 → 2N 16:13